=== PATIENT | male | born 1960 | race Caucasian/White ===

== ENCOUNTER 2017-09-28 09:48 | Emergency (ER) | payer OTHER, SELFPAY ==
[2017-09-28 09:49] VITALS: BP 144/88; PULSE 94; RESP 17; TEMP 36.8; O2SAT 97; BMI 34.1
--- NOTE | 2017-09-28 10:06 | ED.VIS.GEN ---
History of Present Illness Chief Complaint: Laceration Informant: Patient Onset: Today - JPTA Context: Sudden Onset - slipped on ladder, cut right wrist on edge of sheet metal Quality: sore Location: right dorsal wrist Current Severity: Mild - pain Maximum Severity: Mild Worsened by: n/a Relieved by: n/a Associated Symptoms: none. no numbness/ting, loss of fxn. Narrative: RHD. Last tetanus unk. Past Medical History - Allergies and Home Meds Allergies/Adverse Reactions: Allergies No Known Allergies Allergy (Verified 09/28/17 09:52) Primary Care Physician: [facility] [Primary Care Provider] - Past Medical History: None Smoking Status: Former smoker Review of Systems Musculoskeletal: Reports: Extremity Pain Skin: Reports: Abrasions, Wounds - laceration Neurological: Denies: Weakness, Parasthesia, Numbness Physical Exam Vital Signs/Narrative: Vital Signs Temp Pulse Resp BP Pulse Ox 09/28/17 09:49 98.3 F 94 17 144/88 H 97 General: Well nourished, Well developed Head: Normocephalic, Atraumatic Extremities: Nontender - FROM. extensor retinaculum involved in R wrist lac, but no tendons., - - FROM. extensor retinaculum involved in lac, but no tendons. Skin: Normal color, No rash, Trauma - 4cm laceration dorsal ulnar R wrist, just proximal to ulnar styloid. Clean, linear, full thickness. Neurological: Alert, Oriented x3, Cranial nerves II-XII grossly intact, Normal Strength, Normal Sensation, Normal Gait Diagnostic/Tx/Re-eval - Medical Decision Making Patient has pain when using extensor carpi ulnaris, which is the tendon that is moving within the wound that I can feel and neck on at the level of the laceration. There does not appear to be a partial laceration of the tendon however. These most superficial layer of fascia which may be the retinaculum does appear to be partially lacerated, however there is no bowstringing when he extends. Given the findings, will place him in a Velcro wrist splint. Laceration went uneventfully. 2 cc of local 1% lidocaine were used for anesthesia. It was irrigated thoroughly. He states that because of some water nearby there may be some acid in this wound. He is getting some soreness in his hand. 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 He does not have the container but thinks he might be able to get it, no one can look it up for him, he does not think it is hydrofluoric acid. He was advised to check this when he gets home, and to return immediately if indeed it contains hydrochloric acid. Procedures - Lacerations right wrist Length: 4 cm Depth: Tendon - knicked ECU w/o laceration. function intact. Shape: Linear Prep: Sterile Conditions, Betadine, Shure-Clens Irrigated (ml): 120 Number of Sutures/[place]rb[place]: 3 Suture Information: Horizontal, Mattress, 4-0 ED Disposition - Plan for ED Patient: Disposition: Home or Assisted Living Chief Complaint: Laceration Diagnosis: Laceration of right wrist with tendon involvement Prescriptions: Cephalexin [Keflex] 500 mg PO Q12 #10 cap Referrals: [facility] [GROUP OF PHYSICIANS] - 2 Days
[2017-09-28] MEDS: Diphth,Pertuss(Acell),Tet Vac 0.5 ML Vial IM (11:53)
[2017-09-28] MEDS: Cephalexin 250 MG Capsule 500 MG PO (12:43)
[2017-09-28 12:44] VITALS: BP 129/77; PULSE 84; RESP 16; O2SAT 99
--- NOTE | 2017-09-28 14:31 | ED.RN ---
PT RETURNED INSTRUCTED BY DR FRAZIER REGARDING HIS EXPOSURE TO HYDROPHLORIC ACID. DR FRAZIER AWARE AND ADDRESSING NEXT PLAN OF ACTION
--- NOTE | 2017-09-28 15:51 | NURSING ---
calcium chloride stopped at [address] Cruz's orders. States it is no longer needed.
[2017-09-28] MEDS: Acetaminophen 500 MG Tablet 1000 MG PO (16:32)
[2017-09-28 16:33] VITALS: PULSE 89; RESP 16; O2SAT 99
== END 2017-09-28 16:32 | disposition home or self-care (01) ==
PROVIDERS: Emergency Provider Emergency Medicine
DX: S61.511A Laceration without foreign body of right wrist, initial encounter (principal); S66.821A Laceration of other specified muscles, fascia and tendons at wrist and hand level, right hand, initial encounter; W11.XXXA Fall on and from ladder, initial encounter; Y93.89 Activity, other specified; Y92.008 Other place in unspecified non-institutional (private) residence as the place of occurrence of the external cause; Y99.0 Civilian activity done for income or pay
CPT/HCPCS: 12002; 90471; 90715; 96365; 99284; J7050; A4216

== ENCOUNTER → 2017-10-11 12:31 | Outpatient (CLI) | payer OTHER, SELFPAY ==
--- NOTE | 2017-10-11 12:42 | MRI_ITS ---
STUDY: MRI RIGHT WRIST WITHOUT CONTRAST REASON FOR EXAM: Male, 57 years old. Ulnar laceration. Evaluate for tendon injury. TECHNIQUE: Standardized fat and water weighted pulse sequences were obtained in all 3 orthogonal planes. COMPARISON: None. FINDINGS: There is fragmentation of the ulnar styloid with deformity of the distal ulna, likely from prior trauma (coronal series 4 images 7-14). There is moderate arthrosis of the radioulnar and the radiocarpal articulations. There is arthrosis of the intercarpal articulations (coronal series 4 images 10-17). There is a volar ganglion cyst adjacent to the hook of the hamate (axial series 6 images 26-30). Normal visualized interosseous scapholunate ligament. Normal visualized dorsal (extrinsic) ligaments. Normal visualized volar (extrinsic) ligaments. There is a split tear of the extensor carpi ulnaris adjacent to the triquetrum (axial series 6 images 21-28, coronal series 4 images 10-15). No full-thickness tear is present. Normal flexor tendons. Normal carpal tunnel with a normal median nerve. There is marked arthrosis of the first carpometacarpal joint (coronal series 8 images 26-33). Normal second through fifth carpometacarpal articulations. Normal visualized metacarpal bones. There is extensive superficial subcutaneous soft tissue edema on the ulnar side of the distal forearm, wrist and hand (coronal series 4 images 4-14). MRI/Upper Ext Joint Only(Routine) IMPRESSION: Fragmentation of the ulnar styloid with deformity of the distal ulna, likely from prior trauma. Moderate arthrosis of the radial ulnar, radiocarpal, intercarpal and first carpometacarpal articulations. Split tear of the extensor carpi ulnaris adjacent to the triquetrum. Small volar ganglion cyst adjacent to the hook of hamate. Extensive ulnar-sided superficial subcutaneous soft tissue edema. Electronically Signed: Addison Bravo MD at 14:15 EDT , Service support ,
== END ==
PROVIDERS: Visit Provider Physician Assistant Surgical
DX: S51.819A Laceration without foreign body of unspecified forearm, initial encounter (principal)
CPT/HCPCS: 73221

== ENCOUNTER → 2017-10-19 13:02 | Outpatient (CLI) | payer OTHER, SELFPAY ==
--- NOTE | 2017-10-19 13:03 | RAD_ITS ---
STUDY: X-RAY - RIGHT WRIST REASON FOR EXAM: Pain, laceration. TECHNIQUE: 3 view(s) of the wrist were obtained. COMPARISON: Radiographs of the forearm 11/27/2010. FINDINGS: There is a remote fracture of the ulnar styloid process as on the prior study. There is joint space narrowing of the radiocarpal compartment of the wrist. There is mild arthrosis of the distal radioulnar articulation. There is an osteophyte at the dorsal aspect of the lunate. There are intra-articular bodies in the anterior radiocarpal compartment of the wrist as on the prior study. Normal carpometacarpal articulation of the thumb. Normal second through fifth carpometacarpal articulations. Normal visualized metacarpal bones. There is soft tissue swelling. There is vascular calcification. RAD/Wrist min 3 Views IMPRESSION: Remote fracture of the ulnar styloid process. Degenerative changes of the right wrist with intra-articular bodies. Soft tissue swelling. Electronically Signed: Tarun Cao MD at 12:56 EDT Tel , Service support ,
== END ==
PROVIDERS: Visit Provider Orthopaedic Surgery
DX: S66.921A Laceration of unspecified muscle, fascia and tendon at wrist and hand level, right hand, initial encounter (principal)
CPT/HCPCS: 73110

== ENCOUNTER 2018-02-01 11:00 | Outpatient (RCR) | payer OTHER, SELFPAY ==
--- NOTE | 2017-12-21 14:18 | HP.OTEVAL ---
Patient's Visit Information SYLVESTER LACY is a 57 year old M, referred to Occupational Therapy by Alyse Jeffery DO, with a diagnosis of right laceration of muscle, fascia,tendon at wrist and hand levels. Date of Evaluation: 12/21/17 Occupational Therapist: CITLALLI Pineda/Sebastien, CHT - Subjective Subjective: On September 28, 2017 pt had a fall suffering a right forearm laceration. Pt went to ER to haver laceration repiar. pt states he contiues to have pain and limited ROM. Pt states he has had a remote past right wrist fx. but reports he had full ROM and no limited strength from that inj. pt has not missed any work at this time. Pt has worked for the [employer]. pt states due to this injury he is having to compensate with work and ADL tasks- pain does limit him as well as his limted ROM - Pain right wrist 3 Pain Intensity Range: 3, 8 - ROM Forearm: right sup 50 left 70 Wrist: right 60/55 left 65/70 ROM Comments: Right RD//UD 15/5 pain with both directions Limited ROM. 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 Goal:: Pt will demo an increase in wrist ROM equal to unaffected wrist to return pt to PLOF with grooming, dressing and home mtg tasks by D/C. Goal:: Pt will report pain no greater than 1/10 with use of affected hand with BADLs and IADLs by d/c. - Rehabilitation General Assessment: pt demo with limited right wrist ROM and strength. pt has pain with ROM and functional use of right hand. pt would benefit from skilled OT services 2-3x week for 4-6 weeks, Rehabilitation Potential: Good - Anticipated Interventions Anticipated Interventions: A/AAROM/PROM, Strengthening, Modalities, Orthoses, Joint Protection/Energy Conservation, Ergonomic Education - Visit Plan Frequency: 2-3x /Week Duration: 6 Weeks TEXT: Thank you for the opportunity to evaluate your patient. For Medicare and Medicare HMO plans, please review the plan of care and approve it. It will need to be FAXED BACK to us at [phone] for Medicare purposes. Please let me know if there are questions or concerns regarding this plan of care. Physician Signature: Date:
--- NOTE | 2018-02-02 10:38 | HP.OTDCSUM_ITS ---
HP - OT D/C Summary It has been my pleasure to treat SYLVESTER LACY under orders from Alyse Jeffery DO, for the diagnosis of right laceration of muscle, fascia,tendon at wrist and hand levels for a total of 12 visit(s). Please see the following information for a summary of their discharge status. - Objective Objective/Function: , UD/RD. Pt has made gains with his goals in OT. 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 Goal:: Pt will demo an increase in wrist ROM equal to unaffected wrist to return pt to PLOF with grooming, dressing and home mtg tasks by D/C. Goal:: Pt will report pain no greater than 1/10 with use of affected hand with BADLs and IADLs by d/c. - Plan Plan: cont with US and ulnar deviation exercises - D/C Information Discharge Comments: Patient made progress towards meeting goals. pt. reports having decreased pain when completing functional tasks. pt. demo little progress in ROM, however, pt. UD is still functional and is not limiting pt. completion of functional tasks. OT educated pt. on HEP for UD exercises and increasing UE strength. Pt. reports no further concerns at this time. If there are questions or concerns regarding this patient's occupational therapy, please fell free to call me at [phone]. Thank you for the referral of this patient. Sincerely, Michelle Anna, OTR/L, CHT
== END 2018-02-01 19:00 | disposition home or self-care (01) ==
LOC: OT 11:00
PROVIDERS: Referring Provider Orthopaedic Surgery; Visit Provider Orthopaedic Surgery
DX: S66.921D Laceration of unspecified muscle, fascia and tendon at wrist and hand level, right hand, subsequent encounter (principal)
CPT/HCPCS: 97035; 97110; 97140; 97166; 97530

== ENCOUNTER 2018-09-17 10:49 | Emergency (ER) | payer OTHER, SELFPAY ==
[2018-05-21 13:05] VITALS: BMI 30.9
[2018-09-17 10:50] VITALS: BP 143/92; PULSE 84; RESP 16; TEMP 36.7; O2SAT 95; BMI 34.9
--- NOTE | 2018-09-17 11:54 | RAD_ITS ---
STUDY: X-RAY - LEFT ANKLE REASON FOR EXAM: Male, 57 years old. TECHNIQUE: view(s) of the ankle. COMPARISON: None. FINDINGS: There is soft tissue swelling adjacent to the lateral malleolus. Otherwise no evidence of fracture or dislocation. The ankle mortise and subtalar joints are unremarkable. Minimal plantar and dorsal heel spurs noted. RAD/Ankle min 3 Views IMPRESSION: Soft tissue swelling adjacent to the lateral malleolus. Electronically Signed: Karen Cardoso, at 12:14 EDT Tel , Service support ,
--- NOTE | 2018-09-17 14:04 | ED.VISSUMM ---
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 He rolled his ankle and fell. He is complaining of pain and swelling has difficulty with weightbearing. He denies any other injury. Physical Examination: Vital signs unremarkable. Patient sitting upright in bed no acute distress. Head and neck examination was no external sign of trauma. No C-spine tenderness. Heart is regular rate and rhythm. Lung sounds are clear. Abdomen is soft and nontender. Left lower extremity examination was tenderness and edema of the lateral malleolus. There is no tenderness over the foot or proximal fibula. He has strong distal pulses. Test Results: Left ankle x-rays reveal soft tissue swelling adjacent to the lateral malleolus. Emergency Department Course and Treatment: Patient is treated with naproxen as well as air splint and crutches. He may weight-bear as tolerated. He will follow-up with [facility]. Treatment Plan: [] Disposition: Discharge Impression: Left ankle sprain This note was generated with [employer] dictation software. It may contain incorrect words, spelling, and punctuation that were not noted in review of the chart prior to signing ED Disposition - Plan for ED Patient: Disposition: Home or Assisted Living Instructions: Sprain, Ankle, with X-Ray Prescriptions: Naproxen [Naprosyn] 500 mg PO BID PRN PRN #20 tab PRN Reason: Pain Prescription Printed Referrals: [facility] [GROUP OF PHYSICIANS] - 3-5 Days
[2018-09-17] MEDS: Naproxen 500 MG Tablet PO (14:13)
[2018-09-17 14:18] VITALS: PULSE 70; RESP 16; O2SAT 99
== END 2018-09-17 14:20 | disposition home or self-care (01) ==
PROVIDERS: Emergency Provider Emergency Medicine
DX: S93.402A Sprain of unspecified ligament of left ankle, initial encounter (principal); I25.2 Old myocardial infarction; I10 Essential (primary) hypertension; Z87.891 Personal history of nicotine dependence; X50.1XXA Overexertion from prolonged static or awkward postures, initial encounter; Y93.89 Activity, other specified; Y92.59 Other trade areas as the place of occurrence of the external cause; Y99.0 Civilian activity done for income or pay
CPT/HCPCS: 73610; 99284

== ENCOUNTER 2019-01-01 08:30 | Outpatient (RCR) | payer OTHER, SELFPAY ==
[2018-11-13 12:02] VITALS: BMI 35.2
--- NOTE | 2018-11-27 13:08 | HP.PTEVAL ---
Patient's Visit Information SYLVESTER LACY is a 58 year old M referred to Physical Therapy by MIESHA Nichols with a diagnosis of LEFT ANKLE SPRAIN. Date of Evaluation: 11/27/18 Physical Therapist: Madhu Acuña, PT, Cert MDT, OCS - Visit Plan Frequency: 3x /Week Duration: 4 Weeks Plan: ANKLE SPRAIN SEPTEMBER 17. PT INTERVENTIONS - Subjective Findings: This 58 y/o male presents to physical therapy with left ankle sprain. 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 Patient had immediate pain with swelling Patient went to ER [facility] x-rays ,placed in air cast and crutcjes . Patient foll[facility] with [facility] ,patient RTW but patient continue to c/o cramping and pain . Thus seen [facility] 2 weeks ago thus recommend PT. Patient left lateral ankle with pain and swelling. Patient pain affects ability to walk on uneven terraine,job demands and housework tasks. Patient pain affects sleeping. Patient pain affects QOL and function. Patient symptoms affect sleeping. SOCIAL: single. VOCATION: [employer] - Pain Right Ankle Pain Intensity (Out of 10): 1 Pain Intensity Range: 10 - Objective POSTURE: frontal plane mechanics pes cavus. NEURO: intact. GAIT: antalgic gait with mild decrease stance time. PROPIOCEPTION: poor. AROM: DF 5 degrees,PF 65 degrees,IN 30 degrees,EV 10 degrees. PALPATION: tender anterior talofibular ligament ,calcaneal fibular ligament. EDEMA: trimalleor joint 29.8 cm. FLEXABILITY: G-S MILD TIGHT. ANKLE TEST: anterior drawer 1+ ,inversion +,talar tilt +. MMT: ankle anterior tibials 4/5 ,pernoeus 4/5,G-S 4-/5,POSTERIOR TIBIALS 4-/5 - Goals Goal 1:: Independant with HEP. Goal Time Frame: 4-6 Weeks Goal 2:: Patient to decrease pain ankle with activity by 75% to improve function Goal Time Frame: 4-6 Weeks Goal 3:: Patient to improve proprioception for uneven surfaces Goal Time Frame: 4-6 Weeks Goal 4:: Patient increase strength left ankle 5/5 to improve gait Goal Time Frame: 4-6 Weeks Goal 5:: Patient increase gait with normal marcelino Goal Time Frame: 4-6 Weeks Goal 6:: Pateint to improve LFES score by 10 points to improve job demands Goal Time Frame: 4-6 Weeks - Rehabilitation Potential Physical Therapy Diagnosis: Patient has left ankle sprain September 17 with pain ,edema,strength,proproception and gait thus impairs job demands Rehabilitation Potential: Good - Anticipated Interventions Patient/Client Instruction: Educate patient on: Condition, Plan of Care For the Purpose of:: To decrease pain, To increase ROM, To improve muscle performance and motor function, To improve ability to perform ADL's, To increase tolerance to activity/condition/position, To improve ability of physical actions for home/community/work/leisure, To improve health of tissue, To decrease soft tissue restriction, To increase flexibility/ROM, To reduce risk of recurrence, To improve ability to perform tasks related to life management Therapeutic Exercise to Include: Strength training, Balance training, Flexibilty training, Passive ROM, Active ROM Comment: PROPRIOCEPTION For the Purpose of:: To decrease pain, To increase ROM, To improve muscle performance and motor function, To increase tolerance to activity/condition/position, To improve ability of physical actions for home/community/work/leisure, To improve health of tissue, To decrease soft tissue restriction, To increase flexibility/ROM, To improve balance, To reduce risk of recurrence TENS: Yes IF ES: Yes Cryotherapy (ice pack, ice massage): Yes Ultrasound (thermal/non thermal): Yes For the Purpose of:: To decrease pain, To increase ROM, To improve nutrient delivery to tissue, To increase oxygenation perfusion, To improve health of tissue, To decrease soft tissue restriction Thank you for the opportunity to evaluate your patient. For Medicare and Medicare HMO plans, please review the plan of care and approve it. It will need to be FAXED BACK to us at [phone] for Medicare purposes. For Medicare only, by signing this I certify the plan of care. Please let me know if there are questions or concerns regarding this plan of care. Physician Signature: Date:
--- NOTE | 2019-03-29 08:30 | HP.PT.NRP ---
HP - Discharge Summary (1) - Patient Information SYLVESTER LACY was seen in my office for initial evaluation on 11/27/18. The following Plan of Care was established for this patient: Initial Frequency: 3x /Week Initial Duration: 4 Weeks - Anticipated Interventions Patient/Client Instruction: Educate patient on: Condition, Plan of Care For the Purpose of:: To decrease pain, To increase ROM, To improve muscle performance and motor function, To improve ability to perform ADL's, To increase tolerance to activity/condition/position, To improve ability of physical actions for home/community/work/leisure, To improve health of tissue, To decrease soft tissue restriction, To increase flexibility/ROM, To reduce risk of recurrence, To improve ability to perform tasks related to life management Therapeutic Exercise to Include: Strength training, Balance training, Flexibilty training, Passive ROM, Active ROM For the Purpose of:: To decrease pain, To increase ROM, To improve muscle performance and motor function, To increase tolerance to activity/condition/position, To improve ability of physical actions for home/community/work/leisure, To improve health of tissue, To decrease soft tissue restriction, To increase flexibility/ROM, To improve balance, To reduce risk of recurrence TENS: Yes IF ES: Yes Cryotherapy (ice pack, ice massage): Yes Ultrasound (thermal/non thermal): Yes For the Purpose of:: To decrease pain, To increase ROM, To improve nutrient delivery to tissue, To increase oxygenation perfusion, To improve health of tissue, To decrease soft tissue restriction This patient was last seen in our office 01/01/19. Pertinent comments regarding their Physical therapy will appear below: Patient seen for PT for left ankle sprain for 10 visits with tx focusing on flexablity ,strengthening,proprioception . Patient was RTD ,thus is d/c. At this point I will be discontinuing this patient from physical therapy. I would be happy to see this patient again in the future if found appropriate by the physician. Thank you! Madhu Acuña, PT, Cert MDT, OCS
== END 2019-01-01 19:00 | disposition home or self-care (01) ==
LOC: PT 08:30
PROVIDERS: Referring Provider Physician Assistant; Visit Provider Physician Assistant
DX: S93.402D Sprain of unspecified ligament of left ankle, subsequent encounter (principal); S66.921D Laceration of unspecified muscle, fascia and tendon at wrist and hand level, right hand, subsequent encounter
CPT/HCPCS: 97110; 97162

== ENCOUNTER 2019-11-01 09:33 | Emergency (ER) | payer OTHER, SELFPAY ==
[2018-11-13 12:02] VITALS: BMI 35.2
[2019-11-01 09:34] VITALS: BP 167/98; PULSE 58; RESP 16; TEMP 36.4; O2SAT 98; BMI 35.9
--- NOTE | 2019-11-01 09:49 | EKG12_ITS ---
Test Reason : DIZZINESS Blood Pressure : / mmHG Vent. Rate : 061 BPM Atrial Rate : 061 BPM P-R Int : 162 ms QRS Dur : 088 ms QT Int : 432 ms P-R-T Axes : 015 -27 -03 degrees QTc Int : 434 ms Normal sinus rhythm Leftward axis Poor R wave progression Confirmed by ALLISON WEIR, SONY ([id number]), continuity editor LARA CHAN ([id number]) on 11/05/2019 10:41:01 AM Referred By: JILLIAN Confirmed By:SONY COOPER MD
--- NOTE | 2019-11-01 10:02 | CT_ITS ---
STUDY: CTA HEAD AND NECK WITH CONTRAST REASON FOR EXAM: Male, 59 years old. DIZZINESS/VOMITING X 2 RADIATION DOSAGE (If Supplied By Facility): CTDIvol = ( 28.816 ) mGy, DLP = ( 1646.47 ) mGycm TECHNIQUE: CT angiography was performed with a multi-detector CT scanner. Data acquisition was obtained from the skull base through the vertex following intravenous administration of IV 100 ML ISOVUE 370. MIP images were reconstructed from the axial data set. Post-processing of the angiographic images was performed, with multiplanar reformation and 3D reconstruction. Individualized dose optimization techniques were used for this CT. COMPARISON: No relevant priors. FINDINGS: Normal bilateral petrous carotid arteries. There is calcified plaque formation of the right cavernous carotid artery, without a cross-sectional luminal stenosis. There is calcified plaque formation of the left cavernous carotid artery, without a cross-sectional luminal stenosis. Normal right A1 segments of the anterior cerebral artery. Normal left A1 segments of the anterior cerebral artery. Normal intact anterior communicating artery (ACOM). Normal bilateral A2 segments of the anterior cerebral arteries. Normal right M1 and M2 segments of the middle cerebral arteries, with a normal M1 bifurcation. Normal left M1 and M2 segments of the middle cerebral arteries, with a normal M1 bifurcation. Normal right posterior communicating artery (PCOM). Normal left posterior communicating artery (PCOM). Normal bilateral vertebral arteries. Normal basilar artery with a normal basilar bifurcation. The visualized bilateral superior cerebellar (SCA) arteries are normal. Normal bilateral P1, P2 and visualized P3 segments of the posterior cerebral arteries. There is no demonstrated aneurysm of the upper [place] of [place]. There is no demonstrated abnormality of the visualized brain. AORTIC ARCH: Normal visualized aortic arch. Normal origins of the brachiocephalic, left common carotid, and left subclavian arteries. RIGHT CAROTID ARTERIES: Normal right common carotid artery (CCA). Normal right common carotid bulb. Normal origin of the right internal carotid (ICA) artery without a hemodynamically significant stenosis. Normal visualized cervical portion of the right internal carotid artery. Normal origin of the right external carotid artery (ECA). LEFT CAROTID ARTERIES: Normal left common carotid artery (CCA). Normal left common carotid bulb. Minimal calcific plaque at the origin of the left internal carotid artery. Normal visualized cervical portion of the left internal carotid artery. Normal origin of the left external carotid artery (ECA). VERTEBRAL ARTERIES: Normal bilateral vertebral arteries. CT/CTA Head AND Neck W/ Contrast IMPRESSION: Normal CTA Head and neck with contrast. Electronically Signed: Klever Cotton, at 10:43 EDT , Service support ,
[2019-11-01 10:08] LABS: Absolute Lymphocyte Count 1.13 X10^3/uL (0.83-4.51); Absolute Neutrophil Count 3.6 X10^3/uL (2.0-7.7); Basophil# 0.04 X10^3/uL; Basophil% 0.7 % (0-1); Eosinophil# 0.07 X10^3/uL; Eosinophils% 1.3 % (0-5); Hematocrit 40.9 % (40-54); Hemoglobin 12.9 g/dL (13.0-16.5); Lymphocyte # 1.13 X10^3/ul (4.0); Mean Corp Hgb Conc 31.5 g/dL (32-36); Mean Corpuscular Hgb 29.1 pg (27.0-32.0); Mean Corpuscular Volume 92.3 fL (80-94); Mean Platelet Vol. 9.1 fl (6.2-12.0); Monocyte# 0.56 X10^3/uL; Monocyte% 10.4 % (0-10); NRBC Flagged by Analyzer 0 % (0-5); Neutrophil # 3.56 X10^3/uL (2.7-7.7); Neutrophil % 66.2 % (47-70); Platelet Count 246 K/mm3 (150-450); RBC Distribution Width CV 13.1 % (11.6-14.6); RBC Distribution Width SD 44.2 fl (35.1-43.9); Red Blood Count 4.43 M/mm3 (4.6-6.2); White Blood Count 5.4 K/mm3 (4.4-11.0)
[2019-11-01] MEDS: 0.9% Normal Saline 1,000 ML 1000 ML IV (10:10)
[2019-11-01] MEDS: diazePAM 5 MG Tablet PO (10:10)
[2019-11-01 10:20] LABS: Anion Gap 2 (5-15); BUN 15 mg/dL (7-18); BUN/Creat Ratio 20.5 RATIO (10-20); Chloride 108 mmol/L (98-107); Creatinine, Serum 0.73 mg/dL (0.70-1.30); EST Glomerular Filtration Rate 116 mL/min (>60); Est Glom Filt Rate - Afr Amer 141 mL/min (>60); Estimated Creatinine Clearance 107.61 ml/min; Glucose 102 mg/dL (74-106); Potassium 4.7 mmol/L (3.5-5.1); Sodium Level 141 mmol/L (136-145)
--- NOTE | 2019-11-01 10:33 | ED.VIS.GEN ---
History of Present Illness <Kolby Reid Last Filed: 11/01/19 10:52> Informant: Patient, Family Onset: Today Context: Sudden Onset Timing: Continuous Quality: dizzy Location: head Current Severity: Moderate Maximum Severity: Severe Worsened by: movement, laying flat Relieved by: nothing Associated Symptoms: nausea and vomiting Prior similar symptoms: No Recent Illness/Hospitalization: No <Baljeet Coon Last Filed: 11/01/19 11:08> Chief Complaint: Dizziness Past Medical History <Kolby Reid Last Filed: 11/01/19 10:52> Prior records reviewed: Yes Past Medical History: - - HTN, HPL Surgical History: no surgical history Smoking Status: Former smoker Alcohol: Occasional Drugs: None <Baljeet Coon Last Filed: 11/01/19 11:08> - Allergies and Home Meds Allergies/Adverse Reactions: Allergies No Known Allergies Allergy (Verified 11/01/19 09:35) Primary Care Physician: [facility] [Primary Care Provider] - Review of Systems All systems negative except as indicated General: Denies: Chills, Fever, Sweats Eyes: Denies: Visual changes - bilaterally, Blurred Vision - bilaterally, Diplopia ENT: Denies: Rhinorrhea, Sore throat Cardiovascular: Denies: Chest pain, Palpitations Respiratory: Denies: Dyspnea, Cough, Dyspnea on exertion Gastrointestinal: Reports: Nausea, Vomiting. Denies: Abdominal pain, Diarrhea, Constipation, Melena, Hematochezia Genitourinary: Denies: Dysuria, Hematuria, Frequency Musculoskeletal: Denies: Back pain, Swelling, Extremity Pain Skin: Denies: Rash, Wounds Neurological: Denies: Headache, Weakness, Parasthesia, Numbness <ShaggyBaljeet - Last Filed: 11/01/19 11:08> Physical Exam Vital Signs/Narrative: Vital Signs Temp Pulse Resp BP Pulse Ox 11/01/19 09:34 97.6 F L 58 L 16 167/98 H 98 <Kolby Reid - Last Filed: 11/01/19 10:52> Vital Signs/Narrative: Vital Signs Temp Pulse Resp BP Pulse Ox 11/01/19 09:34 97.6 F L 58 L 16 167/98 H 98 Inital Vital Signs reviewed: Yes General: Well nourished, Well developed, No Acute Distress Head: Normocephalic, Atraumatic Eyes: Perrl, EOMI, - - no nystagmus ENT: Moist mucous membranes, No rhinorrhea Neck: Supple, Nontender, No JVD Cardiovascular: Regular rate, Regular rhythm, No murmurs Respiratory: No distress, CTA bilaterally, Chest nontender Abdomen: Soft, Nontender, Nondistended, Normal bowel sounds Back: Nontender, Normal Inspection Extremities: Nontender, No edema Skin: Normal color, No rash Neurological: Alert, Oriented x3, Cranial nerves II-XII grossly intact, Normal Strength, Normal Sensation, Normal DTR, Normal Gait Psychological: Normal affect, Normal Mood <Baljeet Coon - Last Filed: 11/01/19 11:08> Diagnostic/Tx/Re-eval - Medical Decision Making Seeing the patient with our physician server assistant. Patient complaining of room spinning dizziness worse with head movement. Denies any headache. Denies any head trauma. No prior history. Patient denies any problems moving his arms and legs. Says with head movement his dizziness gets worse and he gets the point where he is nauseated and feels like his no throw up. Well-appearing middle-aged male. Vital signs stable afebrile. HEENT exam unremarkable. Neck nontender. Lungs are clear. Heart regular rhythm no murmur. Abdomen soft. Patient is moving all 4 extremities. No edema. Normal plane captain strength. 5 out of 5. Normal dorsi plantarflexion. Neurologic exam normal. NIH score is 0. Fingertip to nose within normal limits. No facial droop. Normal speech. Hallpike maneuver positive. With worsening of the symptoms. Patient's history and exam are consistent with acute vertigo. Being treated with p.o. Valium. CAT scan and labs are being obtained. Next Impression: Acute dizziness secondary to vertigo <Kolby Reid - Last Filed: 11/01/19 10:52> - Medical Decision Making Basic laboratory work-up was unremarkable. CTA head and neck was unremarkable as well. Repeat evaluation, he feels improved. He ambulates normally. At this time we feel comfortable with discharge as does the patient. We will prescribe him some Valium and refer him to his primary care for further treatment. He was advised to return for worsening symptoms. <Baljeet Coon - Last Filed: 11/01/19 11:08> ED Disposition <Kolby Reid - Last Filed: 11/01/19 10:52> <Baljeet Coon - Last Filed: 11/01/19 11:08> - Plan for ED Patient: Disposition: Home or Assisted Living Diagnosis: Dizziness, HTN (hypertension) Instructions: ED Dizziness [facility] Prescriptions: Meclizine HCl [Antivert] 25 mg PO 4X/DAY PRN PRN #20 tab PRN Reason: Dizziness Prescription Printed proMETHazine tablet [Phenergan] 25 mg PO Q6H PRN PRN #10 tab PRN Reason: Nausea Prescription Printed Diazepam [Valium] 5 mg PO Q8 PRN #10 tab PRN Reason: Dizziness Prescription Printed [facility] [Primary Care Provider] -
[2019-11-01 11:40] VITALS: BP 122/9; BP 122/92; PULSE 68; RESP 16; O2SAT 97
== END 2019-11-01 11:44 | disposition home or self-care (01) ==
PROVIDERS: Emergency Provider Physician Assistant Medical
DX: R42 Dizziness and giddiness (principal); Z87.891 Personal history of nicotine dependence
CPT/HCPCS: 70496; 70498; 80048; 85025; 93005; 96360; 96361; 99284; J7030; Q9967

== ENCOUNTER → 2020-10-07 16:14 | Outpatient (CLI) | payer OTHER, SELFPAY ==
[2020-09-11 08:54] VITALS: BMI 35.9
--- NOTE | 2020-10-07 16:17 | MRI_ITS ---
STUDY: MRI LEFT ANKLE WITHOUT CONTRAST REASON FOR EXAM: Male, 60 years old. injury 2 years ago, pain lateral ankle TECHNIQUE: Standardized fat and water weighted pulse sequences were obtained in all 3 orthogonal planes. COMPARISON: May 25 2020. FINDINGS: Achilles enthesophyte. No significant Achilles tendinosis. Mild/moderate multifocal chronic plantar fascial thickening (sagittal images 2 through 9 series 4). Small plantar spur. Normal muscles of the midfoot/hindfoot. Normal extensor tendons. Mild posterior tibialis tendinosis with tenosynovitis. Remainder of flexor tendons unremarkable. Trace peroneus longus/brevis tenosynovitis. Normal syndesmotic thickness. 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 Chronic posterior talofibular ligament sprain. Normal Lisfranc ligament. Normal sinus Tarsi/subtalar ligaments. Normal deltoid ligament. Normal spring ligament. No acute fracture, dislocation or bone destruction. Mild navicular cuneiform joint arthrosis. Mild tarsometatarsal joint arthrosis. Remainder of the articular cartilage preserved. No significant soft tissue swelling. Small tibiotalar/subtalar joint effusion. 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
== END ==
PROVIDERS: Referring Provider Physician Assistant; Visit Provider Physician Assistant
DX: S93.402A Sprain of unspecified ligament of left ankle, initial encounter (principal)
CPT/HCPCS: 73721

== ENCOUNTER 2021-06-25 07:24 | Emergency (ER) | payer OTHER, SELFPAY ==
[2021-06-25 07:25] VITALS: BP 162/103; PULSE 64; RESP 16; TEMP 36.6; O2SAT 99; BMI 34.7
--- NOTE | 2021-06-25 07:47 | EKG12_ITS ---
Test Reason : DIZZINESS Blood Pressure : / mmHG Vent. Rate : 064 BPM Atrial Rate : 064 BPM P-R Int : 174 ms QRS Dur : 088 ms QT Int : 416 ms P-R-T Axes : 063 -29 -05 degrees QTc Int : 429 ms Normal sinus rhythm Poor R wave Progression Confirmed by ALLISON WEIR, SONY ([id number]), supervising editor news reel ALISTAIR SONG ([id number]) on 06/29/2021 11:18:35 AM Referred By: KARIN Confirmed By:SONY COOPER MD
--- NOTE | 2021-06-25 07:47 | RAD_ITS ---
STUDY: X-RAY CHEST REASON FOR EXAM: Male, 60 years old. Dizziness, presyncope TECHNIQUE: AP COMPARISON: None. FINDINGS: EKG leads project over the chest. The lungs are clear and expanded. There is no demonstrated pleural abnormality. Normal size heart. Unremarkable mediastinum and quentin. Normal visualized pulmonary arteries. Normal visualized aortic arch and descending thoracic aorta. Normal visualized thoracic spine. Normal visualized ribs, clavicles, and shoulders. There is no demonstrated abnormality of the visualized soft tissue structures of the upper abdomen. RAD/Chest 1 View IMPRESSION: Nonacute x-ray examination of the chest. Electronically Signed: Derek Rodriguez MD (Brooks) at 8:22 EDT ,
--- NOTE | 2021-06-25 07:47 | CT_ITS ---
STUDY: CT HEAD STROKE PROTOCOL W/O CONTRAST INJECTION REASON FOR EXAM: Male, 60 years old. vertigo RADIATION DOSAGE (If Supplied By Facility): CTDIvol = ( ) mGy, DLP = ( ) mGycm TECHNIQUE: Transaxial CT imaging of the brain was performed without administration of intravenous contrast material. Individualized dose optimization techniques were used for this CT. COMPARISON: No relevant priors. FINDINGS: Normal soft tissue structures. Normal calvarium. Normal size ventricles and extra-axial spaces for the patient''s age. Normal white matter tracts of the cerebral hemispheres. Normal basal ganglia and thalami. Normal brainstem. Normal cerebellum. There is no intracranial hemorrhage. There are no findings of an acute ischemic infarction. Normal visualized paranasal sinuses. ASPECT score: 10/10 CT/STROKE Brain/Head without Cont IMPRESSION: No acute intracranial hemorrhage or mass effect. N.B. : The above Results were Read Back by Derek Rodriguez MD (Brooks) to Thomas Cruz MD, and understanding confirmed on 06/25/2021 08:16:15 (ET). Electronically Signed: Derek Rodriguez MD (Brooks) at 8:17 EDT Reading Location ID and State: [address] [place] [address] , Service support ,
--- NOTE | 2021-06-25 07:48 | CT_ITS ---
STUDY: CTA HEAD AND NECK WITH CONTRAST REASON FOR EXAM: Male, 60 years old. Vertigo, HTN RADIATION DOSAGE (If Supplied By Facility): CTDIvol = ( 21.74 ) mGy, DLP = ( 716.21 ) mGycm TECHNIQUE: CT angiography was performed with a multi-detector CT scanner. Data acquisition was obtained from the skull base through the vertex following intravenous administration of IV 100mL [id number]-370. MIP images were reconstructed from the axial data set. Post-processing of the angiographic images was performed, with multiplanar reformation and 3D reconstruction. Individualized dose optimization techniques were used for this CT. COMPARISON: No relevant priors. FINDINGS: Normal bilateral petrous carotid arteries. There is calcified plaque formation of the right cavernous carotid artery, without a cross-sectional luminal stenosis. There is calcified plaque formation of the left cavernous carotid artery, without a cross-sectional luminal stenosis. Normal right A1 segments of the anterior cerebral artery. Normal left A1 segments of the anterior cerebral artery. Normal intact anterior communicating artery (ACOM). Normal bilateral A2 segments of the anterior cerebral arteries. Normal right M1 and M2 segments of the middle cerebral arteries, with a normal M1 bifurcation. Normal left M1 and M2 segments of the middle cerebral arteries, with a normal M1 bifurcation. Normal right posterior communicating artery (PCOM). Normal left posterior communicating artery (PCOM). Normal bilateral vertebral arteries. Normal basilar artery with a normal basilar bifurcation. The visualized bilateral superior cerebellar (SCA) arteries are normal. Normal bilateral P1, P2 and visualized P3 segments of the posterior cerebral arteries. There is no demonstrated aneurysm of the [place]. There is no demonstrated abnormality of the visualized brain. AORTIC ARCH: There is a mild degree of atherosclerotic calcific plaque formation of the aortic arch and great vessels arising from the aortic arch, without a hemodynamically significant stenosis. There is a normal origin of the brachiocephalic, left common carotid, and left subclavian arteries. RIGHT CAROTID ARTERIES: Normal right common carotid artery (CCA). Normal right common carotid bulb. There is mild atherosclerotic plaque formation of the origin of the right internal carotid artery with less than 50% cross sectional diameter stenosis. Normal visualized cervical portion of the right internal carotid artery. Normal origin of the right external carotid artery (ECA). LEFT CAROTID ARTERIES: Normal left common carotid artery (CCA). Normal left common carotid bulb. There is mild atherosclerotic plaque formation of the origin of the left internal carotid artery with less than 50% cross sectional diameter stenosis. Normal visualized cervical portion of the left internal carotid artery. Normal origin of the left external carotid artery (ECA). VERTEBRAL ARTERIES: There is enhancement within the bilateral vertebral arteries with a small right vertebral artery, and a dominant left vertebral artery. CT/STROKE CTA Head AND Neck W/Con IMPRESSION: Mild calcific plaque at the origins of both right and left internal carotid arteries causing less than 50% narrowing. N.B. : The above Results were Read Back by Klever Cotton MD to Thomas Cruz and understanding confirmed on 06/25/2021 09:07:22 (ET). Electronically Signed: Klever Cotton MD at 9:09 EDT ,
--- NOTE | 2021-06-25 07:49 | EDS_ITS ---
HPI History of Present Illness Chief Complaint: Dizziness Informant: patient Onset/Context/Timing Onset: Days (2-3) Context: Gradual Onset Timing: Continuous Quality and Location: Positive for - (Disequilibrium/lightheadedness) Current Severity: Mild Maximum Severity: Moderate Worsened by: Turning head or torquing neck Relieved by: Sitting and remaining still Associated Symptoms Associated Symptoms: Negative for Headache, Nausea, Vomiting and Chest Pain Narrative Narrative: Patient has been having disequilibrium symptoms of you like he is off balance. No rachael spinning or movement in his head. No nausea or vomiting like he had the last time he had vertigo although the dizziness sensation is somewhat similar. Walking is not as bad as long as his head is remaining still. He denies any focal peripheral neurologic deficits or vision changes, visual field deficits, or diplopia. He has chronic tinnitus that is unchanged and no other ear symptoms. No recent head trauma, no recent viral illnesses or hospitalization for anything or other illness. Spell pressure usually runs 117 or so systolic, it is 162 and 170 here in the emergency department. [facility] Medical History Hay fever Heart attack Hemorrhoids Hyperlipidemia Hypertension Home Medications carvedilol 12.5 mg tablet 0.5 tab PO BID #90 tab 09/18/18 [History Last Taken Unknown] lisinopril 5 mg tablet 2.5 mg PO DAILY #90 tab 09/18/18 [History Last Taken Unknown] isosorbide mononitrate 30 mg PO DAILY 11/01/19 [History Last Taken Unknown] meclizine 25 mg PO 4X/DAY PRN PRN #20 tab 11/01/19 [Rx Last Taken Unknown] promethazine 25 mg PO Q6H PRN PRN #10 tab 11/01/19 [Rx Last Taken Unknown] simvastatin 40 mg PO QHS 11/01/19 [History Last Taken Unknown] aspirin [Baby Aspirin] 81 mg PO DAILY 06/25/21 [History Last Taken Unknown] meclizine 25 mg PO Q8H PRN PRN #20 tab 06/25/21 [Rx Last Taken Unknown] Allergy/AdvReac Type Severity Reaction Status Date / Time No Known Allergies Allergy Verified 06/25/21 07:27 Surgical History (Updated 06/25/21 @ 07:37 by Samia Newby) Hx of heart artery stent Social History Smoking Status: Former smoker alcohol intake: current Alcohol type: beer details: weekly ROS ROS ED Constitutional Constitutional ED: Denies chills or fever(s) Eyes Eyes: Denies change in vision or diplopia ENT ENT ED: Reports as per HPI, dizziness and tinnitus; Denies ear pain, rhinorrhea or sore throat Cardiovascular Cardiovascular: Denies chest pain or palpitations Respiratory/Chest Respiratory/Chest: Denies cough or dyspnea Gastrointestinal Gastrointestinal: Denies abdominal pain, diarrhea, nausea or vomiting Genitourinary Genitourinary ED: Denies dysuria or hematuria Musculoskeletal Musculoskeletal: Denies back pain or neck pain Integumentary Denies abscess or rash Neurologic Neurologic: Denies headache(s), paresthesias or weakness Psychiatric Psychiatric: Denies anxiety or suicidal thoughts EXAM Physical Exam Const Vital Signs: 06/25/21 07:25 06/25/21 08:01 06/25/21 08:24 Temperature 97.9 F Temperature Source Temporal Pulse Rate 64 63 Respiratory Rate 16 20 H Respiratory Effort Normal Non-Labored Respiratory Pattern Normal Blood Pressure 162/103 H 144/96 H Blood Pressure Mean 122 112 Pulse Ox 99 94 Oxygen Delivery Method Room Air Room Air Room Air 06/25/21 09:24 06/25/21 10:00 Temperature Temperature Source Pulse Rate 56 L 57 L Respiratory Rate 19 H 18 Respiratory Effort Respiratory Pattern Blood Pressure 135/94 H 130/92 H Blood Pressure Mean 107 104 Pulse Ox 95 97 Oxygen Delivery Method Room Air Room Air Positive well nourished and well developed General Appearance ED: well developed and NAD HEENT Reports EAC's normal, TM's clear, TM's normal bilaterally and moist mucous membranes normocephalic and atraumatic Tympanic Membrane ED: Yes TM's clear Eyes PERRL and EOMs intact bilaterally Eyes Narrative: No horizontal, vertical, or rotatory nystagmus Neck full ROM and supple Resp normal respiratory effort and clear to auscultation bilaterally Cardio regular rate, regular rhythm and no murmurs GI non-tender and non-distended Auscultation: normoactive bowel sounds Palpation: soft Back/Spine no CVA tenderness General Back: other FROM Extremity normal to inspection General Extremety ED: Negative for edema, pulses abnormal or tenderness General Extremity: Negative for edema or pulses abnormal Neuro oriented x3, CN's II-XII intact bilaterally and no sensory deficits noted Neuro Narrative: Normal [id number] and hxqe-wo-ezmb bilaterally. Normal Romberg. Judie-Hallpike elicits symptoms bilaterally worse to the right Sensorium / Orientation: awake and alert Motor Exam: strength 5/5 throughout Skin no rashes or lesions noted and no wounds STROKE Vital Signs/Narrative: Vital Signs Temp Pulse Resp BP Pulse Ox 06/25/21 10:00 57 L 18 130/92 H 97 06/25/21 09:24 56 L 19 H 135/94 H 95 06/25/21 08:24 63 20 H 144/96 H 94 06/25/21 07:25 97.9 F 64 16 162/103 H 99 NIHSS Initial: 1a Level of Consciousness: 0 1b LOC Questions (Score 2 if aphasic/stupor): 0 1c LOC Commands (Only score 1st attempt): 0 2 Best Gaze (If aphasic, use reflexive mvmts.): 0 3 Visual: 0 4 Facial Palsy: 0 5 Motor Arm Right (UN = amputation/fusion): 0 5 Motor Arm Left: 0 6 Motor Leg Right: 0 6 Motor Leg Left: 0 7 Limb ataxia (Only + if out of proportion): 0 8 Sensory (Aphasia/stupor=0 or 1, coma=2): 0 9 Best Language: 0 10 Dysarthria (mute, coma=2, intubated=UN): 0 11 Extinction and Inattention (only scored if +): 0 Total Score: 0 MDM MDM MDM Narrative Medical decision making narrative: Stroke work-up was performed including CT angiography of the head and neck, all of this was negative for anything acute. He does have some mild plaques at the origin of both internal carotids, they are less than 50%, and he has no posterior circulation issues on the CTA. His EKG is normal. Labs are normal. He was given oral meclizine after passing swallow evaluation and he says he feels much better. The blood pressure was initially 162 systolic and then 170. Without treating it, we watched him for several hours and all of his other measurements were 130-140 systolic. Given all of this and the fact that he has had symptoms for 2 or 3 days, I am comfortable with him following up as an outpatient for what is very likely to be peripheral vertigo. Discussed all this with the patient and he is in agreement. Lab Data Attestation: I reviewed the patient's lab results. Labs: Laboratory Results - last 24 hr 06/25/21 06/25/21 06/25/21 07:45 07:45 07:45 WBC 4.9 RBC 4.68 Hgb 13.6 Hct 41.4 MCV 88.5 MCH 29.1 MCHC 32.9 RDW Std Deviation 42.6 RDW Coeff of Tena 13.2 Plt Count 236 MPV 8.7 Immature Gran % (Auto) 0.400 Neut % (Auto) 52.3 Lymph % (Auto) 32.7 [place] % (Auto) 11.2 H Eos % (Auto) 2.4 Baso % (Auto) 1.0 Absolute Neuts (auto) 2.6 Absolute Lymphs (auto) 1.61 Nucleated RBC % 0 PT 12.5 INR 1.0 APTT 31.9 Sodium 138 Potassium 4.2 Chloride 106 Carbon Dioxide 30.0 Anion Gap 2 L BUN 16 Creatinine 0.76 Estim Creat Clear Calc 102.07 Est GFR (MDRD) Af Amer 133 Est GFR (MDRD) Non-Af 110 BUN/Creatinine Ratio 20.9 H Glucose 80 Calcium 8.7 Troponin I High Sens 4 Radiography Diagnostic Testing: Clinical Impression(s) from Imaging Studies Brain CT 06/25/21 07:47 IMPRESSION: No acute intracranial hemorrhage or mass effect. N.B. : The above Results were Read Back by Derek Rodriguez MD (Brooks) to Thomas Cruz MD, and understanding confirmed on 06/25/2021 08:16:15 (ET). Electronically Signed: Derek Rodriguez MD (Brooks) at 8:17 EDT Reading Location ID and State: [address] [place] [address] , Service support , ADDENDUM: 06/25/21823 IMPRESSION: No acute intracranial hemorrhage or mass effect. N.B. : The above Results were Read Back by Derek Rodriguez MD (Brooks) to Thomas Cruz MD, and understanding confirmed on 06/25/2021 08:16:15 (ET). Electronically Signed: Derek Rodriguez MD (Brooks) at 8:17 EDT , Chest X-Ray 06/25/21 07:47 IMPRESSION: Nonacute x-ray examination of the chest. Electronically Signed: Derek Rodriguez MD (Brooks) at 8:22 EDT , Head/Neck CTA 06/25/21 07:48 IMPRESSION: Mild calcific plaque at the origins of both right and left internal carotid arteries causing less than 50% narrowing. N.B. : The above Results were Read Back by Klever Cotton MD to Thomas Cruz and understanding confirmed on 06/25/2021 09:07:22 (ET). Electronically Signed: Klever Cotton MD at 9:09 EDT , ADDENDUM: 06/25/21 0916 IMPRESSION: Mild calcific plaque at the origins of both right and left internal carotid arteries causing less than 50% narrowing. N.B. : The above Results were Read Back by Klever Cotton MD to Thomas Cruz and understanding confirmed on 06/25/2021 09:07:22 (ET). Electronically Signed: Klever Cotton MD at 9:09 EDT , Rhythm Strip Rhythm Strip: Sinus Rhythm Rate: 65 Ectopy: None EKG Initial EKG: Attestation: I personally reviewed and interpreted this EKG as follows: Interpretation: Sinus Rhythm and No Acute Injury Pattern Comments: Normal EKG Stroke Documentation Questions Stroke Team Activated: No (Due to symptoms 2-3 days) Discharge Plan Triage Chief Complaint: Dizziness ED Provider: Thomas Cruz Dx/Rx/DC Orders Clinical Impression: Peripheral vertigo, Tinnitus Instructions: ED Vertigo, Unspecified Prescriptions: New meclizine [meclizine] 25 MG tablet 25 mg PO Q8H PRN PRN (Reason: Dizziness) Qty: 20 RF: 0 No Action lisinopril 5 mg tablet 2.5 mg PO DAILY Qty: 90 RF: 0 carvedilol 12.5 mg tablet 0.5 tab PO BID Qty: 90 RF: 0 isosorbide mononitrate 30 mg tablet extended release 24 hr 30 mg PO DAILY RF: 0 simvastatin 40 MG tablet 40 mg PO QHS RF: 0 meclizine 25 MG tablet 25 mg PO 4X/DAY PRN PRN (Reason: Dizziness) Qty: 20 RF: 0 promethazine 25 MG tablet 25 mg PO Q6H PRN PRN (Reason: Nausea) Qty: 10 RF: 0 aspirin [Baby Aspirin] 81 mg Tablet,Chewable 81 mg PO DAILY RF: 0 [facility] Care Provider[facility] Referrals: Keagan Nixon MD [STAFF PHYSICIAN] - 1 Week if not improving [facility] [Primary Care Provider] - Disposition Disposition: Home, Self Care
[2021-06-25 07:56] LABS: Absolute Lymphocyte Count 1.61 X10^3/uL (0.83-4.51); Absolute Neutrophil Count 2.6 X10^3/uL (2.0-7.7); Basophil# 0.05 X10^3/uL; Eosinophil# 0.12 X10^3/uL; Eosinophils% 2.4 % (0-5); Hematocrit 41.4 % (40-54); Hemoglobin 13.6 g/dL (13.0-16.5); Lymphocyte # 1.61 X10^3/ul (0.83-4.51); Lymphocyte % 32.7 % (19-41); Mean Corp Hgb Conc 32.9 g/dL (32-36); Mean Corpuscular Hgb 29.1 pg (27.0-32.0); Mean Corpuscular Volume 88.5 fL (80-94); Mean Platelet Vol. 8.7 fl (6.2-12.0); Monocyte# 0.55 X10^3/uL; Monocyte% 11.2 % (0-10); NRBC Flagged by Analyzer 0 % (0-5); Neutrophil # 2.57 X10^3/uL (2.7-7.7); Neutrophil % 52.3 % (47-70); Platelet Count 236 K/mm3 (150-450); RBC Distribution Width CV 13.2 % (11.6-14.6); RBC Distribution Width SD 42.6 fl (35.1-43.9); Red Blood Count 4.68 M/mm3 (4.6-6.2); White Blood Count 4.9 K/mm3 (4.4-11.0)
[2021-06-25] MEDS: Meclizine HCl 25 MG Tablet PO (08:10)
[2021-06-25 08:20] LABS: Anion Gap 2 (5-15); BUN 16 mg/dL (7-18); BUN/Creat Ratio 20.9 RATIO (10-20); Calcium,Total 8.7 mg/dL (8.5-10.1); Chloride 106 mmol/L (98-107); Creatinine, Serum 0.76 mg/dL (0.70-1.30); EST Glomerular Filtration Rate 110 mL/min (>60); Est Glom Filt Rate - Afr Amer 133 mL/min (>60); Estimated Creatinine Clearance 102.07 ml/min; Glucose 80 mg/dL (74-106); Potassium 4.2 mmol/L (3.5-5.1); Sodium Level 138 mmol/L (136-145); Troponin-I HS 4 pg/mL (3.0-78.0)
[2021-06-25 08:21] LABS: Prothrombin Time (Protime)PT. 12.5 SECONDS (11.7-14.9)
[2021-06-25 08:22] LABS: Partial Thromboplast Time 31.9 Seconds (24.1-36.2)
[2021-06-25 08:24] VITALS: BP 144/96; PULSE 63; RESP 20; O2SAT 94
[2021-06-25 09:24] VITALS: BP 135/94; PULSE 56; RESP 19; O2SAT 95
[2021-06-25 10:00] VITALS: BP 130/92; PULSE 57; RESP 18; O2SAT 97
[2021-06-25 11:17] VITALS: BP 134/91; PULSE 56; RESP 16; O2SAT 95
== END 2021-06-25 11:17 | disposition home or self-care (01) ==
PROVIDERS: Emergency Provider Emergency Medicine; Visit Provider Emergency Medicine
DX: H81.399 Other peripheral vertigo, unspecified ear (principal); H93.19 Tinnitus, unspecified ear; I10 Essential (primary) hypertension; E78.5 Hyperlipidemia, unspecified; I25.2 Old myocardial infarction; Z79.899 Other long term (current) drug therapy; Z79.82 Long term (current) use of aspirin; Z87.891 Personal history of nicotine dependence
CPT/HCPCS: 70450; 70496; 70498; 71045; 80048; 84484; 85025; 85610; 85730; 93005; 99285; Q9967; A4216

== ENCOUNTER 2022-04-16 10:18 | Emergency (ER) | payer OTHER, SELFPAY ==
[2022-04-16 10:19] VITALS: BP 138/95; PULSE 80; RESP 18; TEMP 35.9; O2SAT 98; BMI 34.7
--- NOTE | 2022-04-16 10:46 | EX.ED.DYSGE1 ---
HPI History of Present Illness Chief Complaint: General Illness Informant: patient Onset/Context/Timing Onset: Yesterday Context: Gradual Onset Timing: Intermittent Quality: Lightheaded like I am going to pass out Location: Generalized Worsened by: Nothing Relieved by: Nothing Narrative Narrative: Patient presents with lightheadedness that began yesterday. Patient states he feels like he is going to pass out. Patient states this comes and goes. Patient states he has been constant for the last few hours. Patient states it came on gradually. Patient states nothing makes it worse and nothing makes it better. Patient states he recently tested positive for COVID-19 4 days ago. Patient states he started having some symptoms of an upper respiratory infection last week. Patient admits to some subjective chills but denies any fevers. PFSH PFS Medical History Hay fever Heart attack Hemorrhoids Hyperlipidemia Hypertension Home Medications carvedilol 12.5 mg tablet 0.5 tab PO BID #90 tabs 09/18/18 [History Last Taken Unknown] lisinopril 5 mg tablet 2.5 mg PO DAILY #90 tabs 09/18/18 [History Last Taken Unknown] isosorbide mononitrate 30 mg tablet,extended release 24 hr 30 mg PO DAILY 11/01/19 [History Last Taken Unknown] meclizine 25 mg tablet 25 mg PO 4X/DAY PRN PRN Dizziness #20 tabs 11/01/19 [Rx Last Taken Unknown] promethazine 25 mg tablet 25 mg PO Q6H PRN PRN Nausea #10 tabs 11/01/19 [Rx Last Taken Unknown] simvastatin 40 mg tablet 40 mg PO QHS 11/01/19 [History Last Taken Unknown] aspirin 81 mg chewable tablet 81 mg PO DAILY 06/25/21 [History Last Taken Unknown] meclizine 25 mg tablet 25 mg PO Q8H PRN PRN Dizziness #20 tabs 06/25/21 [Rx Last Taken Unknown] Allergy/AdvReac Type Severity Reaction Status Date / Time No Known Allergies Allergy Verified 04/16/22 10:19 Surgical History Hx of heart artery stent Social History Smoking Status: Former smoker alcohol intake: current Alcohol type: beer details: weekly ROS ROS ED Constitutional Constitutional ED: Reports chills and subjective; Denies fever(s) Eyes Eyes: Denies blurry vision or change in vision ENT ENT ED: Denies rhinorrhea or sore throat Cardiovascular Cardiovascular: Denies chest pain or palpitations Respiratory/Chest Respiratory/Chest: Reports cough; Denies dyspnea Gastrointestinal Gastrointestinal: Denies nausea or vomiting Genitourinary Genitourinary ED: Denies dysuria or hematuria Musculoskeletal Musculoskeletal: Denies back pain or neck pain Integumentary Denies abscess or rash Neurologic Neurologic: Denies headache(s) or paresthesias Allergic/Immunologic Allergic/Immunologic ED: Denies mouth swelling or urticaria EXAM Physical Exam Const Vital Signs: 04/16/22 10:19 04/16/22 11:15 04/16/22 11:15 Temperature 96.6 F L Temperature Source Temporal Pulse Rate 80 68 Pulse Rate [Lying] Pulse Rate [Sitting (for 1 minute prior to obtaining)] Pulse Rate [Standing (for 1 minute prior to obtaining)] Respiratory Rate 18 16 Blood Pressure 138/95 H Blood Pressure [Lying] Blood Pressure [Sitting (for 1 minute prior to obtaining)] Blood Pressure [Standing (for 1 minute prior to obtaining)] Blood Pressure Mean 109 Blood Pressure Mean [Lying] Blood Pressure Mean [Sitting (for 1 minute prior to obtaining)] Blood Pressure Mean [Standing (for 1 minute prior to obtaining)] Pulse Ox 98 97 Oxygen Delivery Method Room Air Room Air 04/16/22 11:38 04/16/22 12:19 Temperature Temperature Source Pulse Rate 67 Pulse Rate [Lying] 62 Pulse Rate [Sitting (for 1 minute prior to obtaining)] 63 Pulse Rate [Standing (for 1 minute prior to obtaining)] 67 Respiratory Rate 18 Blood Pressure Blood Pressure [Lying] 118/88 H Blood Pressure [Sitting (for 1 minute prior to obtaining)] 123/87 H Blood Pressure [Standing (for 1 minute prior to obtaining)] 111/86 H Blood Pressure Mean Blood Pressure Mean [Lying] 98 Blood Pressure Mean [Sitting (for 1 minute prior to obtaining)] 99 Blood Pressure Mean [Standing (for 1 minute prior to obtaining)] 94 Pulse Ox 100 Oxygen Delivery Method Room Air Positive well nourished and well developed General Appearance ED: well developed and NAD HEENT Reports moist mucous membranes Neck supple and no JVD Resp normal respiratory effort and clear to auscultation bilaterally Cardio regular rate, regular rhythm and no murmurs GI normal to inspection, nondistended, normoactive bowel sounds and non-tender Palpation: soft Extremity normal to inspection General Extremety ED: Negative for edema or tenderness General Extremity: Negative for edema Neuro oriented x3, CN's II-XII intact bilaterally and no sensory deficits noted Sensorium / Orientation: alert Motor Exam: strength 5/5 throughout Psych mental status grossly normal Skin no rashes or lesions noted MDM MDM MDM Narrative Medical decision making narrative: Due to the patient's lightheadedness and recent COVID-19 test, we will obtain CBC to check for leukocytosis and anemia. We will check basic metabolic profile to check for electrolyte abnormality and renal function. We will check orthostatic vital signs. We will repeat the COVID-19 antigen along with influenza a and influenza B antigens. We will check a chest x-ray to evaluate for possible pneumonia. Patient will be given IV fluids. Lab Data Lab results narrative: CBC was reviewed. White blood cell count was slightly low at 3.3. The remainder was within normal limits. Basic metabolic profile was reviewed glucose was slightly elevated at 108 and chloride was slightly elevated at 110. Anion gap was 3. Labs: Laboratory Results - last 24 hr 04/16/22 04/16/22 11:05 11:05 WBC 3.3 L RBC 4.95 Hgb 14.4 Hct 44.6 MCV 90.1 MCH 29.1 MCHC 32.3 RDW Std Deviation 42.5 RDW Coeff of Tena 12.8 Plt Count 172 MPV 9.1 Immature Gran % (Auto) 0.300 Neut % (Auto) 44.8 L Lymph % (Auto) 39.2 [place] % (Auto) 13.0 H Eos % (Auto) 2.1 Baso % (Auto) 0.6 Absolute Neuts (auto) 1.5 L Absolute Lymphs (auto) 1.30 Nucleated RBC % 0 Sodium 143 Potassium 4.2 Chloride 110 H Carbon Dioxide 30.0 Anion Gap 3 L BUN 18 Creatinine 0.80 Estim Creat Clear Calc 95.74 Est GFR (MDRD) Af Amer 127 Est GFR (MDRD) Non-Af 105 BUN/Creatinine Ratio 22.6 H Glucose 108 H Calcium 8.6 Radiography Diagnostic Testing: Clinical Impression(s) from Imaging Studies Chest X-Ray 04/16/22 11:30 IMPRESSION: No acute cardiopulmonary abnormality. No interval change. Electronically Signed: Anmol Sorensen MD at 12:31 EST , PA and lateral chest x-ray was obtained. There are 2 views. On my interpretation, lung mcneill are clear. There is normal cardiac silhouette. Bony thorax is normal. There is no acute process noted. Radiologist also interpreted the x-ray and agrees. Treatment and Re-Evaluation Narrative: Patient is feeling better on reevaluation. Patient was advised of his findings. Patient was instructed to continue to drink plenty of fluids. Patient was instructed to follow-up with his primary care physician in 5 to 7 days. Patient was instructed return if worse in any way. Patient understood and was agreeable with the plan. All questions were answered. Discharge Plan Triage Chief Complaint: General Illness ED Provider: Jesse Palacio Dx/Rx/DC Orders Clinical Impression: COVID-19, Mild dehydration Instructions: Coronavirus Disease 2019 (COVID-19): Caring for Yourself or Others Prescriptions: No Action lisinopril 5 mg tablet 2.5 mg PO DAILY Qty: 90 carvedilol 12.5 mg tablet 0.5 tab PO BID Qty: 90 Label Comments: TAKE 1 2 (ONE HALF) TABLET BY MOUTH TWICE DAILY isosorbide mononitrate 30 mg tablet extended release 24 hr 30 mg PO DAILY Label Comments: TAKE 1 TABLET BY MOUTH ONCE DAILY simvastatin 40 MG tablet 40 mg PO QHS meclizine 25 MG tablet 25 mg PO 4X/DAY PRN PRN (Reason: Dizziness) Qty: 20 0RF promethazine 25 MG tablet 25 mg PO Q6H PRN PRN (Reason: Nausea) Qty: 10 0RF aspirin [Baby Aspirin] 81 mg Tablet,Chewable 81 mg PO DAILY meclizine [meclizine] 25 MG tablet 25 mg PO Q8H PRN PRN (Reason: Dizziness) Qty: 20 0RF [facility]Primary [facility] Provider[facility] - 5-7 Days Disposition Disposition: Home, Self Care
[2022-04-16] MEDS: 0.9% Normal Saline 1,000 ML 1000 ML IV (11:11)
[2022-04-16] MEDS: Ipratropium/Albuterol Sulfate 3 ML AMPUL.NEB INHALATION (11:12)
[2022-04-16 11:15] VITALS: PULSE 68; RESP 16; O2SAT 97
[2022-04-16 11:16] LABS: Absolute Neutrophil Count 1.5 X10^3/uL (2.0-7.7); Basophil# 0.02 X10^3/uL; Basophil% 0.6 % (0-1); Eosinophil# 0.07 X10^3/uL; Eosinophils% 2.1 % (0-5); Hematocrit 44.6 % (40-54); Hemoglobin 14.4 g/dL (13.0-16.5); Lymphocyte % 39.2 % (19-41); Mean Corp Hgb Conc 32.3 g/dL (32-36); Mean Corpuscular Hgb 29.1 pg (27.0-32.0); Mean Corpuscular Volume 90.1 fL (80-94); Mean Platelet Vol. 9.1 fl (6.2-12.0); Monocyte# 0.43 X10^3/uL; NRBC Flagged by Analyzer 0 % (0-5); Neutrophil # 1.49 X10^3/uL (2.7-7.7); Neutrophil % 44.8 % (47-70); Platelet Count 172 K/mm3 (150-450); RBC Distribution Width CV 12.8 % (11.6-14.6); RBC Distribution Width SD 42.5 fl (35.1-43.9); Red Blood Count 4.95 M/mm3 (4.6-6.2); White Blood Count 3.3 K/mm3 (4.4-11.0)
[2022-04-16 11:28] LABS: Anion Gap 3 (5-15); BUN 18 mg/dL (7-18); BUN/Creat Ratio 22.6 RATIO (10-20); Calcium,Total 8.6 mg/dL (8.5-10.1); Chloride 110 mmol/L (98-107); EST Glomerular Filtration Rate 105 mL/min (>60); Est Glom Filt Rate - Afr Amer 127 mL/min (>60); Estimated Creatinine Clearance 95.74 ml/min; Glucose 108 mg/dL (74-106); Potassium 4.2 mmol/L (3.5-5.1); Sodium Level 143 mmol/L (136-145)
--- NOTE | 2022-04-16 11:30 | RAD_ITS ---
EXAM: XR CHEST, 2 VIEWS CLINICAL INDICATION: Cough TECHNIQUE: Frontal and lateral views of the chest. This report was created using [employer] report generation technology. COMPARISON: XR Chest dated 06/25/2021 FINDINGS: LUNGS AND PLEURAL SPACES: Normal. No consolidation or edema. No pneumothorax. No effusion. HEART: Normal heart size. MEDIASTINUM: No mediastinal or hilar mass. BONES/JOINTS: No acute abnormality. SOFT TISSUES: Normal. RAD/Chest PA and Lateral IMPRESSION: No acute cardiopulmonary abnormality. No interval change. Electronically Signed: Anmol Sorensen MD at 12:31 EST ,
[2022-04-16 11:38] VITALS: BP 111/86; BP 118/88; BP 123/87; PULSE 62; PULSE 63; PULSE 67
[2022-04-16 12:19] VITALS: PULSE 67; RESP 18; O2SAT 100
== END 2022-04-16 13:51 | disposition home or self-care (01) ==
PROVIDERS: Emergency Provider Emergency Medicine; Visit Provider Emergency Medicine
DX: U07.1 COVID-19 (principal); E86.0 Dehydration; Z87.891 Personal history of nicotine dependence
CPT/HCPCS: 71046; 80048; 85025; 87428; 94640; 96360; 96361; 99284; J7030; A4216

== ENCOUNTER 2022-06-16 13:38 | Emergency (ER) | payer OTHER, SELFPAY ==
[2022-06-16 13:39] VITALS: BP 151/109; PULSE 91; RESP 16; TEMP 36.2; O2SAT 95; BMI 36.1
--- NOTE | 2022-06-16 13:54 | RAD_ITS ---
STUDY: X-RAY CHEST REASON FOR EXAM: Male, 61 years old. Chest pain TECHNIQUE: Single AP portable view of the chest. COMPARISON: Comparison is made with prior study dated October 14, 2022 and June 25, 2021. FINDINGS: EKG electrodes are seen. The lungs are clear and expanded. There is no demonstrated pleural abnormality. Normal size heart. Normal mediastinum and quentin. Normal visualized pulmonary arteries. Normal visualized aortic arch and descending thoracic aorta. Normal visualized thoracic spine. Normal visualized ribs, clavicles, and shoulders. There is no demonstrated abnormality of the visualized soft tissue structures of the upper abdomen. RAD/Chest 1 View (Portable) IMPRESSION: Normal x-ray examination of the chest. Electronically Signed: Klever Cotton MD at 14:51 EDT ,
--- NOTE | 2022-06-16 14:00 | EKG12_ITS ---
Test Reason : PALP Blood Pressure : / mmHG Vent. Rate : 089 BPM Atrial Rate : 089 BPM P-R Int : 166 ms QRS Dur : 082 ms QT Int : 368 ms P-R-T Axes : 073 -42 016 degrees QTc Int : 447 ms Normal sinus rhythm Left axis deviation Abnormal ECG Confirmed by LUIS FERNANDO WEIR, LYDIA ([id number]), desk editor LARA CHAN ([id number]) on 06/17/2022 10:54:27 AM Referred By: DANIA Confirmed By:LYDIA GOULD MD
[2022-06-16 14:17] VITALS: O2SAT 98
[2022-06-16 14:22] LABS: Absolute Lymphocyte Count 1.85 X10^3/uL (0.83-4.51); Absolute Neutrophil Count 2.2 X10^3/uL (2.0-7.7); Basophil# 0.05 X10^3/uL; Eosinophil# 0.14 X10^3/uL; Eosinophils% 2.9 % (0-5); Hematocrit 41.8 % (40-54); Hemoglobin 13.3 g/dL (13.0-16.5); Lymphocyte # 1.85 X10^3/ul (0.83-4.51); Lymphocyte % 38.4 % (19-41); Mean Corp Hgb Conc 31.8 g/dL (32-36); Mean Corpuscular Hgb 28.9 pg (27.0-32.0); Mean Corpuscular Volume 90.9 fL (80-94); Mean Platelet Vol. 9.3 fl (6.2-12.0); Monocyte# 0.61 X10^3/uL; Monocyte% 12.7 % (0-10); NRBC Flagged by Analyzer 0 % (0-5); Neutrophil # 2.15 X10^3/uL (2.7-7.7); Neutrophil % 44.6 % (47-70); Platelet Count 221 K/mm3 (150-450); RBC Distribution Width CV 13.2 % (11.6-14.6); RBC Distribution Width SD 43.8 fl (35.1-43.9); White Blood Count 4.8 K/mm3 (4.4-11.0)
--- NOTE | 2022-06-16 14:24 | ED.VIS.CHEST ---
HPI History of Present Illness Chief Complaint: Palpitations Narrative Narrative: 61-year-old male presenting with palpitations. He states he had about a 2-minute run of feeling like he was having palpitations. He did not catch his heart rate. He states he went to get his blood pressure checked and it was in the 170s over 101 range. He does not have any chest pain but stated he did feel little short of breath that he was a little bit sweaty. No nausea/vomiting. He states has been otherwise well prior to today. He did take a nitroglycerin today but he states this was in 2019. History of CAD, cardiac stents. [facility] Medical History Hay fever Heart attack Hemorrhoids Hyperlipidemia Hypertension Home Medications carvedilol 12.5 mg tablet 0.5 tab PO BID #90 tabs 09/18/18 [History Last Taken Unknown] lisinopril 5 mg tablet 2.5 mg PO DAILY #90 tabs 09/18/18 [History Last Taken Unknown] isosorbide mononitrate 30 mg tablet,extended release 24 hr 30 mg PO DAILY 11/01/19 [History Last Taken Unknown] meclizine 25 mg tablet 25 mg PO 4X/DAY PRN PRN Dizziness #20 tabs 11/01/19 [Rx Last Taken Unknown] promethazine 25 mg tablet 25 mg PO Q6H PRN PRN Nausea #10 tabs 11/01/19 [Rx Last Taken Unknown] simvastatin 40 mg tablet 40 mg PO QHS 11/01/19 [History Last Taken Unknown] aspirin 81 mg chewable tablet 81 mg PO DAILY 06/25/21 [History Last Taken Unknown] meclizine 25 mg tablet 25 mg PO Q8H PRN PRN Dizziness #20 tabs 06/25/21 [Rx Last Taken Unknown] Allergy/AdvReac Type Severity Reaction Status Date / Time No Known Allergies Allergy Verified 06/16/22 13:41 Surgical History Hx of heart artery stent Social History Smoking Status: Former smoker alcohol intake: current Alcohol type: beer details: weekly ROS ROS ED Constitutional Constitutional ED: Denies chills or fever(s) Eyes Eyes: Denies blurry vision or change in vision ENT ENT ED: Denies rhinorrhea Cardiovascular Cardiovascular: Reports palpitations; Denies chest pain Respiratory/Chest Respiratory/Chest: Reports dyspnea; Denies cough Gastrointestinal Gastrointestinal: Denies abdominal pain or constipation Genitourinary Genitourinary ED: Denies dysuria or hematuria Musculoskeletal Musculoskeletal: Denies arthralgias or back pain Integumentary Denies abscess Neurologic Neurologic: Denies headache(s) or paresthesias Psychiatric Psychiatric: Denies anxiety or depression EXAM Physical Exam Const Vital Signs: 06/16/22 13:39 06/16/22 14:17 06/16/22 14:17 Temperature 97.2 F L Temperature Source Temporal Pulse Rate 91 Respiratory Rate 16 Respiratory Effort Normal Non-Labored Blood Pressure 151/109 H Blood Pressure Mean 123 Pulse Ox 95 98 Oxygen Delivery Method Room Air Room Air Positive well nourished General Appearance ED: NAD HEENT Reports TM's clear and moist mucous membranes Tympanic Membrane ED: Yes TM's clear Eyes PERRL and EOMs intact bilaterally Neck no lymphadenopathy Chest Wall inspection of chest normal Resp normal respiratory effort and clear to auscultation bilaterally Auscultation: Negative for rales, rhonchi or wheezes Cardio regular rate and regular rhythm Extremity General Extremety ED: Yes edema General Extremity: edema Neuro oriented x3 and CN's II-XII intact bilaterally Sensorium / Orientation: awake and alert Psych mental status grossly normal Skin no rashes or lesions noted MDM MDM MDM Narrative Medical decision making narrative: 59-year-old male presenting with palpitations. He states it was about 2 months this lasted. He went and got his blood pressure checked which was high although they did not let him rest before they checked it. He does not have any chest pain. He did report some shortness of breath and feeling a little sweaty. Differential at this point is ACS, electrolyte abnormality, dehydration, hypertension. He does not have any cough, fevers to suspect pneumonia. No DVT/PE risk factors and no chest pain. We will obtain a CBC for white blood cell count, hemoglobin, platelets, differential. BMP for renal function electrolytes, glucose, anion gap. High-sensitivity troponin, EKG will be obtained. Chest x-ray as well. EKG on my interpretation shows a normal sinus rhythm with a ventricular rate of 89 bpm without sign of ischemic change or dysrhythmia. CBC shows normal white blood cell count of 4.8. Hemoglobin chronic are stable. Platelets are normal. Renal function electrolytes unremarkable. High-sensitivity troponin is 5. EKG sinus rhythm at a rate 89 bpm without sign of ischemic change or dysrhythmia. This is on my interpretation. Chest x-ray shows no acute process on my interpretation. Radiology interpretation agrees. At this point feel the patient is stable for discharge home. Recommend follow-up with his PCP to ensure resolution. Return precautions were discussed. Impression: 1. Palpitations Lab Data Labs: Laboratory Results - last 24 hr 06/16/22 06/16/22 14:15 14:15 WBC 4.8 RBC 4.60 Hgb 13.3 Hct 41.8 MCV 90.9 MCH 28.9 MCHC 31.8 L RDW Std Deviation 43.8 RDW Coeff of Tena 13.2 Plt Count 221 MPV 9.3 Immature Gran % (Auto) 0.400 Neut % (Auto) 44.6 L Lymph % (Auto) 38.4 [place] % (Auto) 12.7 H Eos % (Auto) 2.9 Baso % (Auto) 1.0 Absolute Neuts (auto) 2.2 Absolute Lymphs (auto) 1.85 Nucleated RBC % 0 Sodium 141 Potassium 4.8 Chloride 109 H Carbon Dioxide 30.0 Anion Gap 2 L BUN 19 H Creatinine 1.13 Estim Creat Clear Calc 67.78 Est GFR (MDRD) Af Amer 84 Est GFR (MDRD) Non-Af 70 BUN/Creatinine Ratio 16.8 Glucose 98 Calcium 9.1 Troponin I High Sens 5 Radiography Diagnostic Testing: Clinical Impression(s) from Imaging Studies Chest X-Ray 06/16/22 13:54 IMPRESSION: Normal x-ray examination of the chest. Electronically Signed: Klever Cotton MD at 14:51 EDT , Discharge Plan Triage Chief Complaint: Palpitations ED Provider: Isaías Oneil Dx/Rx/DC Orders Prescriptions: No Action lisinopril 5 mg tablet 2.5 mg PO DAILY Qty: 90 carvedilol 12.5 mg tablet 0.5 tab PO BID Qty: 90 Label Comments: TAKE 1 2 (ONE HALF) TABLET BY MOUTH TWICE DAILY isosorbide mononitrate 30 mg tablet extended release 24 hr 30 mg PO DAILY Label Comments: TAKE 1 TABLET BY MOUTH ONCE DAILY simvastatin 40 MG tablet 40 mg PO QHS meclizine 25 MG tablet 25 mg PO 4X/DAY PRN PRN (Reason: Dizziness) Qty: 20 0RF promethazine 25 MG tablet 25 mg PO Q6H PRN PRN (Reason: Nausea) Qty: 10 0RF aspirin [Baby Aspirin] 81 mg Tablet,Chewable 81 mg PO DAILY meclizine [meclizine] 25 MG tablet 25 mg PO Q8H PRN PRN (Reason: Dizziness) Qty: 20 0RF [facility] [Primary [facility] Provider] -
[2022-06-16 14:41] LABS: Anion Gap 2 (5-15); BUN 19 mg/dL (7-18); BUN/Creat Ratio 16.8 RATIO (10-20); Calcium,Total 9.1 mg/dL (8.5-10.1); Chloride 109 mmol/L (98-107); Creatinine, Serum 1.13 mg/dL (0.70-1.30); EST Glomerular Filtration Rate 70 mL/min (>60); Est Glom Filt Rate - Afr Amer 84 mL/min (>60); Estimated Creatinine Clearance 67.78 ml/min; Glucose 98 mg/dL (74-106); Potassium 4.8 mmol/L (3.5-5.1); Sodium Level 141 mmol/L (136-145); Troponin-I HS 5 pg/mL (3.0-78.0)
[2022-06-16 17:31] VITALS: BP 142/96; PULSE 77; RESP 20; O2SAT 95
== END 2022-06-16 17:31 | disposition home or self-care (01) ==
PROVIDERS: Emergency Provider Student in an Organized Health Care Education/Training Program; Visit Provider Student in an Organized Health Care Education/Training Program
DX: R00.2 Palpitations (principal); I25.10 Atherosclerotic heart disease of native coronary artery without angina pectoris; I10 Essential (primary) hypertension; I25.2 Old myocardial infarction; E78.5 Hyperlipidemia, unspecified; Z95.5 Presence of coronary angioplasty implant and graft; Z79.82 Long term (current) use of aspirin; Z79.899 Other long term (current) drug therapy; Z87.891 Personal history of nicotine dependence
CPT/HCPCS: 71045; 80048; 84484; 85025; 93005; 99283; A4216

== ENCOUNTER → 2023-04-07 | Outpatient (CLI) | payer OTHER, SELFPAY ==
--- NOTE | 2023-04-07 09:44 | ECHOCS_ITS ---
Reason For Study: Chest Pain Procedure This was a 2D Doppler, Color Flow transthoracic echocardiogram. The study was technically difficult. Contrast injection was performed. Exam performed in department. Left Ventricle Normal left ventricle. Mild concentric left ventricular hypertrophy. Left ventricular systolic function is normal. The estimated ejection fraction is 55 %. Stage 1 diastolic dysfunction. No regional wall motion abnormalities noted. Right Ventricle Normal RV size. Normal systolic function. Atria Normal left atrium. Normal right atrium. Bubble contrast study negative for right to left interatrial shunt. Mitral Valve Normal mitral valve. Tricuspid Valve Normal tricuspid valve. Mild (1+) tricuspid valve insufficiency. Pulmonary artery systolic pressure is 30 mmHg. Aortic Valve Normal aortic valve. Pulmonic Valve Normal pulmonic valve. Great Vessels Normal aortic root. The pulmonary artery is normal size. Normal inferior vena cava. Pericardium/Pleural No pericardial effusion. Medication 22 gauge I.V. with prn adaptor inserted into right arm. Diluted definity 4ml given slow IV push to enhance endocardial definition. Performed a rapid injection of agitated mix of 9 cc saline and 1cc air to assess for atrial septal defect. MMode/2D Measurements & Calculations LVIDd: 5.1 cm IVSd: 1.2 cm LA dimension: 4.2 cm LVIDs: 3.3 cm LVPWd: 1.3 cm RVDd: 3.6 cm FS: 35.2 % LAV(MOD-bp): 57.4 ml LVAd ap4: 34.1 cm2 SV(MOD-sp4): 57.3 ml LAV(MOD-bp) Indexed: 25.7 ml/m2 LVLd ap4: 8.8 cm LAV(MOD-sp2): 69.5 ml EDV(MOD-sp4): 109.5 ml LAV(MOD-sp4): 45.6 ml EDV(sp4-el): 112.7 ml LVAs ap4: 21.1 cm2 LVLs ap4: 7.2 cm ESV(MOD-sp4): 52.2 ml ESV(sp4-el): 52.8 ml EF(MOD-sp4): 52.3 % EF(sp4-el): 53.2 % SV(sp4-el): 59.9 ml LA A4 area: 18.0 cm2 RA A4 area: 20.8 cm2 TAPSE: 1.9 cm Time Measurements MV dec time: 0.26 sec Doppler Measurements & Calculations MV E max isreal: 61.5 cm/sec Lat Peak E' Isreal: 10.7 cm/sec Med Peak E' Isreal: 7.3 cm/sec MV A max isreal: 93.0 cm/sec E/E' lat: 5.8 E/E' med: 8.5 MV E/A: 0.66 MV V2 max: 91.8 cm/sec MV P1/2t max isreal: 67.3 cm/sec Ao V2 max: 123.5 cm/sec MV max P.4 mmHg MV P1/2t: 86.3 msec Ao max P.1 mmHg MV V2 mean: 47.1 cm/sec MV mean P.0 mmHg MV dec slope: 228.6 cm/sec2 MV V2 VTI: 28.1 cm MVA(P1/2t): 2.5 cm2 LV V1 max: 107.0 cm/sec PA V2 max: 80.2 cm/sec TR max isreal: 258.2 cm/sec LV V1 max P.6 mmHg TR max P.7 mmHg ECHO/Echo Complete W/ Contrast Interpretation Summary Normal left ventricle. Mild concentric left ventricular hypertrophy. Left ventricular systolic function is normal. The estimated ejection fraction is 55 %. Stage 1 diastolic dysfunction. Pulmonary artery systolic pressure is 30 mmHg. Contrast injection was performed. Ordering Physician: Michelle Davies Referring Physician: Michelle Davies Performed By: Ton Arnold RCS
--- OUTSIDE RECORDS SUMMARY | 2023-04-07 10:13 | XMS RPT_ITS | CCD ---
Author Name Unknown Address [address] [place] [address] Organization [facility] Encounters Encounter Date Encounter Type Care Provider Facility Start: 07-18-2018 Patient encounter procedure Facility:UNKNOWN Summary Purpose Family History No Family History Records Found Advance Directives No Advanced Directives Records Found Additional Source Comments (unrecognized sect ion and content) No Status Records Found INFORMATION SOURCE (unrecogn ized section and content) FOR RECORDS PERTAINING TO PATIENTS WHO ARE OR HAVE BEEN ENROLLED IN A CHEMICAL DEPENDENCY/SUBSTANCEABUSE PROGRAM, SOME INFORMATION MAY BE OMITTED. This clinical summary was aggregated from multiple sources. Caution should be exercised in using it in the provision of clinical care. This summary normalizes information from multiple sources, and as a consequence, information in this document may materially change the coding, format and clinical context of patient data. In addition, data may be omitted in some cases. CLINICAL DECISIONS SHOULD BE BASED ON THE PRIMARY CLINICAL RECORDS. [facility]. provides no warranty or guarantee of the accuracy or completeness of information in this document.
== END | disposition home or self-care (01) ==
PROVIDERS: Referring Provider Physician Assistant Medical; Visit Provider Physician Assistant Medical
DX: I25.10 Atherosclerotic heart disease of native coronary artery without angina pectoris (principal)
CPT/HCPCS: 93306; Q9957; A4216; C8929

== ENCOUNTER 2023-05-19 06:50 | Day surgery (SDC) | payer OTHER, SELFPAY ==
--- NOTE | 2023-05-09 09:24 | PCM.HP.BLA ---
History and Physical Date of Admission: 05/19/23 Major Rudolph is a 62 year old male who presents for a cardiac catheterization. He has a history of coronary artery disease with RCA and PDA in 2008. He also has a history of hypertension. In 2008 he had angioplasty and stenting done of the RCA system at a hospital in [place]. At that time he was noted to have severe disease in his LAD and moderate disease in his circumflex. Patient had a stress test at the [facility] in December 2022 which demonstrated no reversible ischemia, fixed inferior defect likely represents attenuation artifact versus small possible scar. Wall motion is within normal limits. He was able to walk for 6 minutes on a Kevin protocol achieving 7 METS. Pt states that he has been having chest pain in the last 4 years. He has noted that he would have chest pain with exertion. This is increasing in frequency. 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 He would slow down and then it would go away. He does feel that his exercise tolerance has decreased over the last year. He did have a stress test. Results are noted below. He was to see a farm machinery engine mechanic and Griselda, his Imdur was increased. CP helped somewhat. He was then started on Ranexa. This has helped with his CP. He has tried to reproduce the pain with Ranexa and has not been able to reproduce pain. 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 He does not have any worsening SOB. He does palpitations, this is not new. He does feel that he notices this more over the last 2-3 years. He notes that this is 1-2 times a week but can last up to 5 minutes. He does not have any lightheadedness/dizziness. He does not have any claudication. He does not have any edema. He has not needed to use any NTG. Intake Vital Signs See EMR Allergies See EMR Medications See EMR Ejection fraction %: 60 to 64 PFSH Medical History Atherosclerosis of coronary artery of [place] heart without angina pectoris COVID-19 ELIZABETH (dyspnea on exertion) Hay fever Hemorrhoids History of alcohol abuse History of inferior wall myocardial infarction History of pulmonary embolus (PE) Hyperlipidemia Hypertension Mucous cyst of digit of hand NSVT (nonsustained ventricular tachycardia) Surgical History History of coronary artery stent placement (~01/2009) Family History Mother CVA (cerebral vascular accident) Diabetes Social History Smoking Status: Former smoker how long ago did patient quit [id number] and again in 2015 alcohol intake: current Alcohol type: beer details: weekly substance use type: does not use ROS Const Const: Positive for fatigue (see HPI); Negative for weakness, fever(s) or headache(s) Eyes Eyes: Negative for blind spots, loss of peripheral vision or transient loss of vision ENT ENT: Negative for headache(s), dizziness, tinnitus, Nosebleed/epistaxis or balance problems Cardio Chest Pain: Yes (see HPI) Palpitations: No Edema: None Muscle aches with walking: None Resp Respiratory: Negative for SOB with activity, SOB at rest, SOB orthopnea\SOB lying down or Cough GI GI: Negative nausea, vomiting, heartburn or vomiting blood/hematemesis : Negative for hematuria Musc Musc: Negative for muscle aches/ myalgia, muscle weakness, joint pain or balance problems Neuro Neuro: Negative for dizziness, lightheadedness, near syncope, syncope, orthostatic symptoms, headache(s) or weakness Sarath Hematologic/Lymphatic: Negative for easy bleeding Endo Endo: Positive for fatigue (see HPI) Cardiology Exam Const Appearance: cooperative, no acute distress and well developed Orientation: alert, awake and oriented x3 Head Head: normocephalic and atraumatic Mouth: moist mucous membranes Eyes General: appearance normal, both eyes and all related structures Conjunctivae: conjunctivae normal Pupils: PERRL EOM: EOM intact bilaterally Neck Neck: normal visual inspection, no lymphadenopathy and no JVD Carotids: Negative bruit Neck Mass: Negative Neck mass Chest Chest inspection: normal inspection of the chest and symmetric chest movement Auscultation: Bilateral: Clear to Auscultation Cardio Palpation: normal PMI Rate: regular rate Rhythm: regular rhythm Heart sounds: S1 normal and S2 normal; Negative rub, gallop or murmur GI GI: normal to inspection, soft, no hepatosplenomegaly and bowel sounds present; Negative tender Neuro General: patient alert, patient awake, patient oriented x3, CN's II-XI intact bilaterally and moves all extremities Extremities Pulses: Normal: Right Posterior Tibial Pulse, Left Posterior Tibial Pulse, Right Radial Pulse and Left Radial Pulse Lower Extremity Edema: None: Bilateral Psych Psychological: normal affect Supplemental Info Supplemental Information Echocardiogram in 2008 demonstrated mild concentric LVH, mild segmental systolic dysfunction with an estimated ejection fraction of 45%. Mild mitral insufficiency. Patient had a stress test at the [facility] in December 2022 which demonstrated no reversible ischemia, fixed inferior defect likely Riis represents attenuation artifact versus small possible scar. Wall motion is within normal limits. He was able to walk for 6 minutes on a Kevin protocol achieving 7 METS. Echocardiogram in 2017 this is similar to does have occasional palpitations declines Holter monitor stress test results are similar to 2009 because he still having there is demonstrated an ejection fraction of 60 to 65%. Patient had event monitor in 2019 which demonstrated predominantly sinus rhythm with nonsustained 5 beat ventricular run. Recent lipid profile demonstrates total cholesterol 124, HDL 58, LDL 68. Assessment and Plan Assessment and Plan (1) Atherosclerosis of coronary artery of [place] heart without angina pectoris: Status: Chronic Plan: Pt does have known CAD. He does acknowledge exertional chest pain, that is becoming more frequent, and lasting longer. Would like to proceed with a cardiac catheterization to further assess this. Depending on results, further recommendations will be made. (2) Chest pain: Will proceed with a cardiac catheterization to further assess. Depending on results, further recommendations will be made.
[2023-05-17 11:57] LABS: Absolute Lymphocyte Count 1.75 X10^3/uL (0.83-4.51); Absolute Neutrophil Count 3.3 X10^3/uL (2.0-7.7); Basophil# 0.04 X10^3/uL; Basophil% 0.7 % (0-1); Eosinophil# 0.12 X10^3/uL; Hematocrit 43.8 % (40-54); Hemoglobin 14.3 g/dL (13.0-16.5); Lymphocyte # 1.75 X10^3/ul (0.83-4.51); Lymphocyte % 29.7 % (19-41); Mean Corp Hgb Conc 32.6 g/dL (32-36); Mean Corpuscular Hgb 28.9 pg (27.0-32.0); Mean Corpuscular Volume 88.7 fL (80-94); Mean Platelet Vol. 9.5 fl (6.2-12.0); Monocyte# 0.62 X10^3/uL; Monocyte% 10.5 % (0-10); NRBC Flagged by Analyzer 0 % (0-5); Neutrophil # 3.34 X10^3/uL (2.7-7.7); Neutrophil % 56.8 % (47-70); Platelet Count 286 K/mm3 (150-450); RBC Distribution Width CV 13.2 % (11.6-14.6); RBC Distribution Width SD 43.4 fl (35.1-43.9); Red Blood Count 4.94 M/mm3 (4.6-6.2); White Blood Count 5.9 K/mm3 (4.4-11.0)
--- NOTE | 2023-05-17 12:00 | RAD_ITS ---
STUDY: X-RAY CHEST REASON FOR EXAM: Male, 62 years old. ELIZABETH TECHNIQUE: PA and lateral views of the chest. COMPARISON: June 16, 2022 FINDINGS: The lungs are clear and expanded. There is no demonstrated pleural abnormality. Normal size heart. Normal mediastinum and quentin. Normal visualized pulmonary arteries. Normal visualized aortic arch and descending thoracic aorta. There are diffuse degenerative changes of the visualized thoracic spine. Normal visualized ribs, clavicles, and shoulders. There is no demonstrated abnormality of the visualized soft tissue structures of the upper abdomen. RAD/Chest PA and Lateral IMPRESSION: Degenerative changes, as described above. No demonstrated acute cardiopulmonary process. Electronically Signed: Thomas Guerra MD at 22:59 EST ,
[2023-05-17 12:23] LABS: Prothrombin Time (Protime)PT. 13.2 SECONDS (11.7-14.9)
[2023-05-17 12:24] LABS: Partial Thromboplast Time 30.3 Seconds (24.1-36.2)
[2023-05-17 12:34] LABS: Anion Gap 4 (5-15); BUN 16 mg/dL (7-18); BUN/Creat Ratio 16.4 RATIO (10-20); Calcium,Total 9.3 mg/dL (8.5-10.1); Chloride 109 mmol/L (98-107); Creatinine, Serum 0.97 mg/dL (0.70-1.30); EST Glomerular Filtration Rate 83 mL/min (>60); Est Glom Filt Rate - Afr Amer 100 mL/min (>60); Glucose 92 mg/dL (74-106); Potassium 4.4 mmol/L (3.5-5.1); Sodium Level 141 mmol/L (136-145)
[2023-05-18 07:38] VITALS: BMI 35.7
--- OUTSIDE RECORDS SUMMARY | 2023-05-19 07:10 | XMS RPT_ITS | CCD ---
Author Name Unknown Address [address] [place] [address] Organization [facility] Encounters Encounter Date Encounter Type Care Provider [...] BE BASED ON THE PRIMARY CLINICAL RECORDS. [facility] [employer] [facility]. provides no warranty or guarantee of the accuracy or completeness of information in this document.
--- NOTE | 2023-05-19 08:49 | CL.D_ITS ---
Patient Name: SYLVESTER LACY Study Date: 05/19/2023 Performing: Meek Gaines MD Ht: 69 inches 175.26 cm : 1960 Wt: 242 lbs 109.77 kg Age: 62 Gender: male BSA: 2.24 PROCEDURE(S) PERFORMED DC01-(25312)LHC/COR/LV CLINICAL PROFILE AND INDICATIONS Indications: Suspected CAD Heart Failure: None Stress/Imaging Stress/Image Study Performed: No CAD Presentations: Stable angina. CONCLUSIONS Severe triple-vessel disease with preserved left ventricular systolic function. RECOMMENDATIONS Will recommend coronary bypass surgery in favor of multivessel complex PCI. DESCRIPTION OF PROCEDURE The patient arrived to the procedure lab. The risks and benefits of the procedure as well as a full description of our services here and current unavailability of surgical backup were fully explained to the patient and/or their significant other prior to the catheterization. The Timeout was completed, verifying the correct patient and procedure. The patient's procedural site was prepped and draped in the usual fashion. Local anesthetic was given subcutaneously to right radial region with Lidocaine 2%. Using a modified Seldinger technique, arterial access was obtained via the right radial artery, a 6Fr sheath was inserted. Left Coronary Artery selective angiography was performed in multiple views using a 5 Fr. 4.0 [place] catheter. Right Coronary Artery selective angiography was then performed in multiple views using a 5 Fr. 4.0 [place] catheter. Left Coronary Artery selective angiography was performed in multiple views using a 5 Fr. JL3.5 catheter. Left Coronary Artery selective angiography was performed in multiple views using a 5 Fr. JL4 catheter. Left Ventriculography was performed in DELATORRE projection using a 5 Fr. Pigtail catheter. LV to AO pullback pressures were then recorded.The arterial sheath was pulled and a TR Band was applied for hemostasis CORONARY ANGIOGRAPHY DOMINANCE: Right Dominant LEFT HEART ASSESSMENT Left Ventricular Ejection Fraction: by LV Gram 60 % Normal LV wall motion Normal Left Ventricular systolic function LEFT MAIN: Mild calcification, No significant disease noted LEFT ANTERIOR DESCENDING ARTERY: Moderate to severely calcified vessel with proximal first diagonal branch with 90% stenosis, second diagonal branch with 90% ostial stenosis in the proximal and mid left anterior descending artery with long area of 90% stenosis. The distal vessel has mild disease. CIRCUMFLEX ARTERY: Arises from a separate ostium with the first obtuse marginal branch with 90% proximal stenosis in the mid circumflex artery with 80% stenosis and moderate disease noted in the distal segment. RIGHT CORONARY ARTERY: Dominant right coronary artery previously stented with proximal 90% stenosis and mid 30 to 40% stenosis and distal mild diffuse disease. COMPLICATIONS No Complications PROCEDURE MEDICATIONS Fentanyl 50 mcg IV Versed 1 mg IV Versed 1 mg IV Oxygen: 2 L/min via nasal cannula Baby Aspirin (81mg) 1 Tabs PO @ 05/19/2023 07:13:29 Heparin given IA 05/19/2023 07:57:11 Verapamil 2.5mg, Ntg 100mcgs, 3000 units of Heparin given IA 05/19/2023 07:57:11 SUMMARY OF HEMODYNAMIC DATA Time AIR REST ECG 07:15:08 ECG 07:43:04 Art 119/70 (84) 08:02:32 AO 112/78 (94) SA 08:12:42 LV 126/9, 20 08:27:17 LV 113/10, 19 08:27:25 LV 109/10, 19 08:27:57 LVp 104/10, 19 08:28:03 AOp 123/66 (98) 08:28:10 08:43:44 Signed By Meek Gaines MD On 05/19/2023 08:48:08 Meek Gaines MD
== END 2023-05-19 10:15 | disposition home or self-care (01) ==
LOC: CLSP 06:51
PROVIDERS: Physician Assistant Medical; Referring Provider Internal Medicine Cardiovascular Disease; Visit Provider Internal Medicine Cardiovascular Disease
DX: I25.118 Atherosclerotic heart disease of native coronary artery with other forms of angina pectoris (principal); E78.5 Hyperlipidemia, unspecified; I10 Essential (primary) hypertension; R07.9 Chest pain, unspecified; Z87.891 Personal history of nicotine dependence; Z86.16 Personal history of COVID-19; Z79.82 Long term (current) use of aspirin; Z79.899 Other long term (current) drug therapy; Z86.718 Personal history of other venous thrombosis and embolism; Z95.5 Presence of coronary angioplasty implant and graft
CPT/HCPCS: 36415; 71046; 80048; 85025; 85610; 85730; 93458; 99152; 99153; J7040; Q9967; A4216; C1769; C1894

== ENCOUNTER → 2023-07-03 | Outpatient (CLI) | payer OTHER, SELFPAY ==
--- NOTE | 2023-07-03 08:03 | PCM.CR.HP2 ---
CR - History & Physical General Arrival date:: 07/03/23 Arrival time:: 08:04 Date of Referral:: 06/20/23 Date of CR Evaluation:: 07/03/23 Referring Physician: ARCHANA Primary Diagnosis: S/P CABG History of Present Cardiac Event Onset Date Coronary Artery Bypass Graft:: Yes (06/01/23) Medications Ambulatory Orders Medication Instructions Recorded aspirin 81 mg chewable tablet 81 mg PO DAILY 06/25/21 ibuprofen 800 mg tablet 800 mg PO TID PRN pain 03/09/23 multivitamin 1 tab PO DAILY 03/09/23 carvedilol 12.5 mg tablet 12.5 mg PO BID #90 tabs 06/20/23 rosuvastatin 10 mg tablet 40 mg PO DAILY 06/20/23 tamsulosin 0.4 mg capsule 0.8 mg PO QHS 06/20/23 Allergies Allergies No Known Allergies Allergy (Verified 06/20/23 10:56) Sleep Disorder Evaluation Hx of Sleep Apnea: No Do you snore loudly (louder than talking or can be heard through closed doors)?: No Do you often feel tired/ fatigued/ sleepy during daytime?: No Has anyone observed you stop breathing during sleep?: No History of Hypertension (for STOP score): Yes STOP Results: Negative Advanced Directives Advanced Directives Power of Bottom Sander: No Living Will: Yes Advance Directives Information Provided: No Advance Directives on File: No DNR Order?:: No Past Medical History Covid-19 Screening Physicial Symptoms Other Clinical Concerns Exposure Risk Pertinent Comorbidities Has a serious heart condition:: Yes Past Medical Illness Past Medical History Atherosclerosis of coronary artery of [place] heart without angina pectoris I25.10 COVID-19 U07.1 ELIZABETH (dyspnea on exertion) R06.09 Hay fever J30.1 Hemorrhoids K64.9 History of alcohol abuse F10.11 History of inferior wall myocardial infarction I25.2 History of pulmonary embolus (PE) Z86.711 Hyperlipidemia E78.5 Hypertension I10 Mucous cyst of digit of hand M67.449 NSVT (nonsustained ventricular tachycardia) I47.29 Past Surgical History Past Surgical History (Updated 06/20/23 @ 11:51 by Renea Dodson RN) History of coronary artery stent placement (~01/2009) Z95.5 PCI-RCA/PDA with NUNO X 3. 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 type of work 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):: 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 Hours worked per day:: 6 Returned to work on:: 07/03/23 Hobbies, Recreation, Social Activities Hobbies: Other (hunting, fishing, smoking meat) Recreational Activities: I am able to engage in most, but not all activities Social Environment Status Marital Status: Single Current Living Arrangements Living Environment:: Alone Children How many children do you have?: 1 Do any of your children live nearby?: Yes Safety Do you feel safe in your surroundings?: Yes Assistance Do you need any assistance at home?: no Review of Systems Review of Systems Hints Review of Present Symptoms: Reports Operative Discomfort, Dizziness/Lightheadedness, Fatigue, Appetite - Normal and Appetite - Special Diet; Denies Shortness of Breath at Rest, Shortness of Breath with Exertion, PVD, Angina, Wound Healing, Heart Arrhythmia/Irregularities, Sleep - Normal or Sexual Changes Pain Is Patient Pain Free?: No Pain Location: lower extremity Pain Level: 12/04 Risk Factor Assessment Chief Complaint Chief Complaint: S/P CABG Vital Signs Pulse Ox: 95 Blood Pressure: 110/74 Pulse Pulse Rate: 92 Hypertension Blood Pressure Sitting - Right Arm: 110/74 Obesity Height: 5 ft 9 in Weight:: 236 lb Weight in Pounds: 236.0 lbs Body Mass Index (BMI): 34.8 Nutritional Referral for Obesity: No Physical Inactivity Physical Inactivity: Reg Exercise 30 min/day Risk Stratification Risk Guidelines: Moderate Risk: Risk Factor for Smoking, Risk Factor for Diabetes, Risk Factor for Sedentary Lifestyle and Risk Factor for Depression and Highest Risk: Risk Factor for Dyslipidemia, Risk Factor for Obesity and Risk Factor for Hypertension For Smoking Smoking Risk Guidelines For Dyslipidemia Dyslipidemia Risk Guidelines For Diabetes Mellitus Diabetes Risk Guidelines For Obesity/Overweight Obesity/Overweight Risk Guidelines For Hypertension Hypertension Risk Guidelines For Sedentary Lifestyle Sedentary Lifestyle Risk Guidelines For Depression Depression Risk Guidelines Family History Family History Mother CVA (cerebral vascular accident) Diabetes Motivation Motivation to Participate On a scale of 1 to 10, how prepared are you to commit to attending program?: 10 What do you see as barriers to successfully being able to complete the program?: nothing What do you see as the benefits of succesfully completing the program? In other words, what do you hope to get out of participating in the program?: weight loss and better health Are there issues you are dealing with that will interfere with completing the program?: no Do you have a spouse or signficant other, family or friends who will help support you to complete the program?: yes
[2023-07-03 08:09] VITALS: BP 110/74; PULSE 92; O2SAT 95
--- NOTE | 2023-07-03 08:09 | CR.ITP_ITS ---
Diagnosis General Information Admitting Diagnosis: S/P CABG Personal Learning Style:: Audio/Visual Stage of change r/t lifestyle modifications:: Contemplation Gave educational material for:: Treating Heart Disease, How The Heart Works, What it means to have Heart Disease, How Coronary Artery Disease is Diagnosed, Heart Procedures, What Heart Medications Do, Risk Factors & Modifications, Living an Active Life, Nutrition, Emotions & Heart Disease, Stress Management & Relaxation and Sleep Disorders & Heart Disease Education/Goals Cardiac Rehabilitation Goals Personal Goals: Initial Assessment: Improve energy level, Get back to work, or to resume activities faster, Improve muscle strength and endurance and Improve diet and eating habits (eat healthier) Scale for measuring improvement of personal goals Diagnosis & Disease Process Outcomes/Goals: Pt IDs own risk factors & lifestyle modifications by Session 10, Verbalizes symptoms of angina & response by session 3., Pt independently manages and Other Additional Outcomes/Goals: Plan/Interventions: Assist Pt to ID & engage in lifestyle modification to reduce CVD risk, Instruct on individual risk factors, Review symptoms of angina & emergency actions, Review secondary diagnosis & identify educational needs. and Other see comment 30 day Reassessments:: Not Met 30 day Reassessments:: Not Met 30 day Reassessments:: Not Met 30 day Reassessments:: Not Met Final Reassessments:: Not Met Safety Referral to Physical Therapy: No Referral to [facility] Case Management: No Fall Risk Assessed:: Yes Assistive Devices:: None Exercise - Initial Assessment Visit Date of Eval: 07/03/23 (initial eval ) Mets: Pre-: >3 METS for 30 minutes by discharge, >5 METS for 30 minutes by discharge, >7 METS for 30 minutes by discharge and Unable to meet goal due to: (see comment below) Physician Prescribed Exercise Modalities: Treadmill, Rower, Airdyne, NuStep, SciFit and Lateral Stewart Frequency: 2x/week for 18 weeks [36 sessions] and 3x/week for 12 weeks [36 sessions] Intensity: 60-80% of age predicted maximum heart rate reserve Duration: 30 - 45 minutes Current METSs:: 3.0 Target Heart Rate:: 103-118 Resting Blood Pressure: 110/74 EKG Type: SR Outcomes & Goals Goals:: Verbalizes understanding of THR, RPE & goal METS by session 6, Documents in home exercise log/reports 30 min aerobic 5 day/wk by DC, Demonstrates accurate pulse taking by DC and Other additional outcome/goals: see below Intervention & Plan Exercise Program Goals: Instruct on personal THR & RPE, Instruct on MET level & personal MET goal, Show patient to take own pulse /validate performance until accurate, Instruct on home exercise and Other additional plan/int Physical Activity Home Exercise Physical Activity - Home Exercise: Safe Exercise, Warm-up, Self-monitoring, Cool-Down, Home Exercise > 30 min Daily and Sitting Time <3 hours/daily Outcomes & Goals Outcomes/Goals: Demonstrates correct Warm-up/exercise Cool-Down (S3) if = 2.5 METs, Verbalizes symptoms of exercise intolerance by Session 3 (S3), Demonstrate safe equipment use (S3) & follows exercise prescrition (6) and Other: See below Intervention & Plan Plan/Intervention: Instruct warm-up & cool-down if exercising at > 2 METs, Instruct on symptoms of exercise intolerance & actions to take, Instruct & monitor on saf, Assess intial functional capacity & safety risk and Other See below Nutrition - Initial Assessment Program Goals Nutrition Program Goals Patient has diagnosis of Hyperlipidemia (ICD E78)?: Yes Visit Date of Eval: 07/03/23 (initial eval ) Cholesterol/Lipids (Other Core Measures) Determine presence & major risk factors that modify LDL goal: Cigarette smoking, Hypertension or hypertensive medication, Low HDL cholesterol <40 mg/dL*, Family history of premature CHD in Male < 55 years: female <65 yearsFa and Age men > 45 years; women >/= 55 years Outcomes/Goals: Pt IDs own risk factors & lifestyle modifications by Session 10, Verbalizes symptoms of angina & response by session 3., Pt independently manages and Other Additional Outcomes/Goals: Intervention/Plan: Advocate for lipid panel cholesterol medication if applicable, Instruct on personal lipid levels & lipid goals/NCEP guidelines, Instruct on cholesterol and Other additional plan/int Referral to dietitian:: Yes Diabetes (Other Core Measures) Diabetes Type: Not Applicable Weight Mgt (Other Care) Height: 5 ft 9 in Weight:: 236 lb BMI: 34.8 Diagnosis Overweight/Obesity BMI> 30% ICD-10 E66: Yes Diagnosis High BMI/Morbid Obesity BMI> 35% ICD-10 Z68: No Outcomes/Goals: Pt sets, maintains & shows weight loss goal & trend during rehab and Other additional outcomes/goals Intervention/Plan: Instruct on ideal BMI & set weight loss goal w/patient, Assist pt to ID & incorporate diet changes for weight loss by S9, Refer to Structured Weight Loss program as appropriate, Encourage goal of using 250- 300dcal per session for weight loss and Other additional plan/interventions Healthy Eating Habits Will attend diet classes:: Yes Outcomes/Goals:: Consume diet rich in vegs,fruits,whole grain/high fiber,fish,lean meat, Limit sat/trans fats,cholesterol & added salts & sugars and Other additional outcome/goals: Intervention/Plan:: Assess current eating habits and Other Additional plan/interventions Education Gave educational materials for:: Signs & symptoms of hypoglycemia, Signs & symptoms of hyperglycemia, Relate diabetes to coronary artery disease and Heal thy eating Core - Initial Assessment Visit Date of Eval: 07/03/23 (initial eval ) Medication Compliance Preventative Medication(s):: Aspirin, Statin/lipid and Beta constance H/O mental health issues: depression, anxiety, or addiction?: No Doesn?t believe in the benefits of treatment?: No Believes medications are unnecessary or harmful?: No Has a concern about medication side effects?: No Expresses concern over the cost of medications?: No Outcomes/Goals: Verbalizes medications,desired effect & common side effects @ DC, Pt self-reports following medication regimen, Keeps card in wallet w/medications listed by DC and Other additional outcome/goals: Interventions/plans: Instruct on medication effects & side effects, Review medication list w/patient every two weeks, Instruct importance of taking meds as ordered & assist problem solving and Other additional Tobacco Use Tobacco Use: Non-smoker (stopped 10 years ago) How long ago did you quit using tobacco products?: Greater than or equal to 6 months ago Do you use smokeless tobacco?: No Hypertension Hypertension Diagnosis:: Hypertension ICD-10 I10 Resting Blood Pressure:: 110/74 [place] [employer] Hypertension Guidelines Outcomes/Goals: Able to verbalize/achieve optimal blood pressure <130/80, Incorporates diet changes & exercise for blood pressure control by DC and Other additional outcomes/goals Interventions/plan: Instruct on optimal blood pressure, hypertension & medications, Instruct on effects of sodium, alcohol, stress, exercise &hypertension and Other additional plan/interventions Tobacco Cessation Referral Smoking Cessation Referral:: No Individual Education/Counseling:: No Education Schedule Given:: Yes Psychosocial - Initial Assess VIsit Date of Eval: 07/03/23 (initial eval ) History of previous Mental disease:: No Target Goals Target Goals Outcomes/Goals: See list Psychosocial Outcomes/Goals:: ID's personal stressors & 2 strategies to manage stress by discharge and Other Additional outcome/goals: Intervention/Plan: See List Interventions/Plan:: Assess stressors,coping strategies & signs of derpression on admission, Instruct/assist pt to develop coping & personal stress Mgt strategies, Refer to Behavioral Health if appropriate, Refer to Physician if appropriate, Instruct patient to recognize signs & symptoms of depression, Instruct patient to recog and Other additional plan/intervention Patient Health Questionnaire PHQ-9 Screening Initial Assessment: 1. Little interest or pleasure in doing things: Not at all 2. Feeling down, depressed, or hopeless: Not at all 3. Trouble falling or staying asleep, or sleeping too much: More than half the days 4. Feeling tired or having little energy: Several days 5. Poor appetite or overeating: Not at all 6. Feeling bad about yourself -- or that you are a failure or have let yourself or your family down: Not at all 7. Trouble concentrating on things, such as reading the newspaper or watching television: Not at all 8. Moving or speaking so slowly that other people could have noticed. Or the opposite - being so fidgety or restless that you have been moving around a lot more than usual: Not at all 9. Thoughts that you would be better off , or of hurting yourself in some way: Not at all How difficult have these problems made it for you to do your work, take care of things at home, or get along with other people?: Somewhat difficult Total Score: 3 ODESSA-Q SV Test Statements CAD is a disease of the arteries in the heart: False Examples of risk factors for heart disease: True Angina is chest pain or discomfort: True The benefits of resistance training include: True Eating more meat and dairy products: False Anti-platelet medications such as aspirin are important: False The only effective way to manage stress: False An exercise warm-up slowly increases heart rate: True Prepared, processed foods usually have high sodium: True Depression is common after a heart attack: True The statin medications lower cholesterol: True To control blood pressure, lower the amount of sodium: True If someone gets chest discomfort during walking: False Transfats are partially hydrogenated vegetable oils: True Sleep apnea that is not treated increases the risk: I Don't Know To control cholesterol, one should become a vegetarian: False Someone knows if he/she is exercising at the right level: True Diabetes cannot be prevented with exercise & health eating: False Stress is a large risk for heart attack: True A diet that can help lower blood pressure is rich in: True Total Score Total Correct Responses: 18 Self-Efficacy 6-Item Scale Initial Assessment: We would like to know how confident you are in doing certain activities. Please select your confidence level for: Fatigue Select Number: 10 Physical Discomfort or Pain Select Number: 9 Emotional Distress Select Number: 9 Other Symptoms or Health Problems Select Number: 9 Different Tasks and Activities Select Number: 9 Medication Select Number: 9 Total Score:: 9 Nutrition Survey Nutrition Survey Instructions Scoring Instructions Nutrition Survey Initial: Have you lost >10 lbs over the past 2 months without trying?: Yes Are you following a special diet at home for diabetes, low fat, or low salt?: Yes Are you interested in meeting with a dietitian for help understanding your diet?: Yes Do you eat less than 3 meals a day?: Yes Do you eat fatty meats (major, sausage, ribs, etc), fried foods, desserts, large amounts of salad dressings, margarine, butter, or cheese most days?: Yes Do you have food allergies? [Enter types in comment field]: No Do you eat in restaurants more than 3 times a week?: No Do you season food with salt, seasoning salt, or garlic salt?: No Do you used canned, boxed, frozen meals, or soups, seasoning packets?: Yes Total Score:: 6 Exercise - Final/Discharge Physician Prescribed Exercise Modalities: Treadmill, Rower, Airdyne, NuStep, SciFit and Lateral Senior Hydrogeologist Frequency: 2x/week for 18 weeks [36 sessions] and 3x/week for 12 weeks [36 sessions] Intensity: 60-80% of age predicted maximum heart rate reserve Current METSs:: 3.0 Target Heart Rate:: 103-118 Nutrition - 30-Day Assessment Weight Mgt (Other Care) Height: 5 ft 9 in Weight:: 236 lb BMI: 34.8 Nutrition - 60-Day Assessment Weight Mgt (Other Care) Height: 5 ft 9 in Weight:: 236 lb BMI: 34.8 Core - Final Assessment Hypertension Resting Blood Pressure:: 110/74 [place] [employer] Hypertension Guidelines Core - 60-Day Assessment Hypertension Resting Blood Pressure:: 110/74 [place] [employer] Hypertension Guidelines Psychosocial - 30-Day Assess Target Goals Target Goals Psychosocial - 60-Day Assess Target Goals Target Goals Psychosocial - 90-Day Assess Target Goals Target Goals Psychosocial - Final Assessmen Target Goals Target Goals Nutrition - 90-Day Assessment Weight Mgt (Other Care) Height: 5 ft 9 in Weight:: 236 lb BMI: 34.8 Nutrition - Final Assessment Program Goals Patient has diagnosis of Hyperlipidemia (ICD E78)?: Yes Weight Mgt (Other Care) Height: 5 ft 9 in Weight:: 236 lb BMI: 34.8
[2023-07-03 08:15] VITALS: BP 110/74
[2023-07-03 08:21] VITALS: BMI 34.8
[2023-07-03 08:51] VITALS: BMI 34.8
== END | disposition home or self-care (01) ==
LOC: CR 07:44
PROVIDERS: Referring Provider Internal Medicine Cardiovascular Disease; Visit Provider Internal Medicine Cardiovascular Disease
DX: E78.5 Hyperlipidemia, unspecified (principal)

== ENCOUNTER → 2023-07-17 | Outpatient (CLI) | payer OTHER, SELFPAY ==
[2023-07-03 08:51] VITALS: BMI 34.8
== END | disposition home or self-care (01) ==
LOC: LABSPEC 09:00
PROVIDERS: Visit Provider Physician Assistant Medical
DX: S21.101A Unspecified open wound of right front wall of thorax without penetration into thoracic cavity, initial encounter (principal); L08.9 Local infection of the skin and subcutaneous tissue, unspecified
CPT/HCPCS: 87070; 87075; 87077; 87186; 87205

== ENCOUNTER 2023-07-24 15:45 | Outpatient (RCR) | payer OTHER, SELFPAY ==
[2023-07-03 08:51] VITALS: BMI 34.8
== END 2023-07-25 23:59 ==
LOC: CR 15:45
PROVIDERS: Referring Provider Internal Medicine Cardiovascular Disease; Visit Provider Internal Medicine Cardiovascular Disease
DX: Z95.1 Presence of aortocoronary bypass graft (principal)
CPT/HCPCS: 93798

== ENCOUNTER 2023-07-24 16:10 | Outpatient (CLI) | payer OTHER, SELFPAY ==
[2023-07-03 08:51] VITALS: BMI 34.8
[2023-07-24 16:56] LABS: Absolute Lymphocyte Count 1.63 X10^3/uL (0.83-4.51); Absolute Neutrophil Count 4.7 X10^3/uL (2.0-7.7); Basophil# 0.07 X10^3/uL; Eosinophil# 0.25 X10^3/uL; Eosinophils% 3.4 % (0-5); Hematocrit 39.4 % (40-54); Hemoglobin 12.4 g/dL (13.0-16.5); Lymphocyte # 1.63 X10^3/ul (0.83-4.51); Lymphocyte % 22.4 % (19-41); Mean Corp Hgb Conc 31.5 g/dL (32-36); Mean Corpuscular Hgb 28.2 pg (27.0-32.0); Mean Corpuscular Volume 89.7 fL (80-94); Mean Platelet Vol. 8.8 fl (6.2-12.0); Monocyte# 0.64 X10^3/uL; Monocyte% 8.8 % (0-10); NRBC Flagged by Analyzer 0 % (0-5); Neutrophil # 4.68 X10^3/uL (2.7-7.7); Neutrophil % 64.1 % (47-70); Platelet Count 213 K/mm3 (150-450); RBC Distribution Width CV 14.2 % (11.6-14.6); RBC Distribution Width SD 46.8 fl (35.1-43.9); Red Blood Count 4.39 M/mm3 (4.6-6.2); White Blood Count 7.3 K/mm3 (4.4-11.0)
[2023-07-24 17:25] LABS: Anion Gap 5 (5-15); BUN 20 mg/dL (7-18); BUN/Creat Ratio 23.2 RATIO (10-20); Calcium,Total 9.3 mg/dL (8.5-10.1); Chloride 107 mmol/L (98-107); Creatinine, Serum 0.86 mg/dL (0.70-1.30); EST Glomerular Filtration Rate 95 mL/min (>60); Est Glom Filt Rate - Afr Amer 115 mL/min (>60); Glucose 93 mg/dL (74-106); Magnesium 2.2 mg/dL (1.6-2.6); Potassium 4.5 mmol/L (3.5-5.1); Sodium Level 141 mmol/L (136-145); Thyroid Stim Hormone (TSH) 1.75 uIU/mL (0.358-3.74)
== END 2023-07-24 23:59 | disposition home or self-care (01) ==
LOC: LAB 16:12
PROVIDERS: Referring Provider Physician Assistant Medical; Visit Provider Physician Assistant Medical
DX: I49.3 Ventricular premature depolarization (principal); Z95.1 Presence of aortocoronary bypass graft
CPT/HCPCS: 36415; 80048; 83735; 84443; 85025

== ENCOUNTER 2023-08-23 15:45 | Outpatient (RCR) | payer OTHER, SELFPAY ==
[2023-07-03 08:51] VITALS: BMI 34.8
--- NOTE | 2023-08-02 09:52 | CR.ITP_ITS ---
Exercise - Initial Assessment Visit Session #:: 7 Nutrition - Initial Assessment Weight Mgt (Other Care) Height: 5 ft 9 in Weight:: 237 lb BMI: 34.9 Psychosocial - Initial Assess Target Goals Target Goals Patient Health Questionnaire PHQ-9 Screening 30-Day Re-eval Assessment: 1. Little interest or pleasure in doing things: Not at all 2. Feeling down, depressed, or hopeless: Not at all 3. Trouble falling or staying asleep, or sleeping too much: More than half the days 4. Feeling tired or having little energy: Several days 5. Poor appetite or overeating: Not at all 6. Feeling bad about yourself -- or that you are a failure or have let yourself or your family down: Not at all 7. Trouble concentrating on things, such as reading the newspaper or watching television: Not at all 8. Moving or speaking so slowly that other people could have noticed. Or the opposite - being so fidgety or restless that you have been moving around a lot more than usual: Not at all 9. Thoughts that you would be better off , or of hurting yourself in some way: Not at all How difficult have these problems made it for you to do your work, take care of things at home, or get along with other people?: Somewhat difficult Total Score: 3 Self-Efficacy 6-Item Scale 30-Day Re-eval Assessment: We would like to know how confident you are in doing certain activities. Please select your confidence level for: Fatigue Select Number: 10 Physical Discomfort or Pain Select Number: 9 Emotional Distress Select Number: 9 Other Symptoms or Health Problems Select Number: 9 Different Tasks and Activities Select Number: 9 Medication Select Number: 9 Total Score:: 9 Nutrition Survey Nutrition Survey Instructions Scoring Instructions Exercise - 30-day Assessment Visit Date of Eval: 08/02/23 Session #:: 7 Physician Prescribed Exercise Modalities: Treadmill, Airdyne and NuStep Frequency: 3x/week for 12 weeks [36 sessions] Intensity: 60-80% of age predicted maximum heart rate reserve Duration: 30 - 45 minutes Current METSs:: 5.6 Target Heart Rate:: 118-133 Current RPE:: 12-13.5 Maximum Excercise HR:: 122 Resting Blood Pressure: 132/86 Maximum Exercise Blood Pressure: 198/100 EKG Type: NSR to ST with rare vent couplets Outcomes & Goals Goals:: Verbalizes understanding of THR, RPE & goal METS by session 6, Documents in home exercise log/reports 30 min aerobic 5 day/wk by DC, Demonstrates accurate pulse taking by DC and Other additional outcome/goals: see below Intervention & Plan Exercise Program Goals: Instruct on personal THR & RPE, Instruct on MET level & personal MET goal, Show patient to take own pulse /validate performance until accurate, Instruct on home exercise and Other additional plan/int 30-day Reassessments 30 day Reassessments:: Progressing Reassessment Notes & Comments:: THR explained Physical Activity Home Exercise Physical Activity - Home Exercise: Safe Exercise, Warm-up, Self-monitoring, Cool-Down, Home Exercise > 30 min Daily and Sitting Time <3 hours/daily Outcomes & Goals Outcomes/Goals: Demonstrates correct Warm-up/exercise Cool-Down (S3) if = 2.5 METs, Verbalizes symptoms of exercise intolerance by Session 3 (S3), Demonstrate safe equipment use (S3) & follows exercise prescrition (6) and Other: See below Intervention & Plan Plan/Intervention: Instruct warm-up & cool-down if exercising at > 2 METs, Instruct on symptoms of exercise intolerance & actions to take, Instruct & monitor on saf, Assess intial functional capacity & safety risk and Other See below 30-day Reassessments 30 day Reassessments:: Progressing Reassessment Notes & Comments:: cool down encouraged Nutrition - 30-Day Assessment Program Goals Nutrition Program Goals Patient has diagnosis of Hyperlipidemia (ICD E78)?: Yes Visit Date of Eval: 08/02/23 Session #:: 7 Cholesterol/Lipids (Other Core Measures) Determine presence & major risk factors that modify LDL goal: Cigarette smoking, Hypertension or hypertensive medication, Low HDL cholesterol <40 mg/dL*, Family history of premature CHD in Male < 55 years: female <65 yearsFa and Age men > 45 years; women >/= 55 years Outcomes/Goals: Pt IDs own risk factors & lifestyle modifications by Session 10, Verbalizes symptoms of angina & response by session 3., Pt independently manages and Other Additional Outcomes/Goals: Intervention/Plan: Advocate for lipid panel cholesterol medication if applicable, Instruct on personal lipid levels & lipid goals/NCEP guidelines, Instruct on cholesterol and Other additional plan/int Referral to dietitian:: Yes 30-day Reassessments:: Progressing Reassessment Notes & Comments:: pt to meet with outpatient coding specialist Diabetes (Other Core Measures) Diabetes Type: Not Applicable Weight Mgt (Other Care) Height: 5 ft 9 in Weight:: 237 lb BMI: 34.9 Diagnosis Overweight/Obesity BMI> 30% ICD-10 E66: Yes Diagnosis High BMI/Morbid Obesity BMI> 35% ICD-10 Z68: No Outcomes/Goals: Pt sets, maintains & shows weight loss goal & trend during rehab and Other additional outcomes/goals Intervention/Plan: Instruct on ideal BMI & set weight loss goal w/patient, Assist pt to ID & incorporate diet changes for weight loss by S9, Refer to Structured Weight Loss program as appropriate, Encourage goal of using 250- 300dcal per session for weight loss and Other additional plan/interventions 30 day Reassessments:: Progressing Reassessment Notes & Comments:: pt to meet with outpatient coding specialist Healthy Eating Habits Will attend diet classes:: Yes Outcomes/Goals:: Consume diet rich in vegs,fruits,whole grain/high fiber,fish,lean meat, Limit sat/trans fats,cholesterol & added salts & sugars and Other additional outcome/goals: Intervention/Plan:: Assess current eating habits and Other Additional plan/interventions 30-day Reassessments:: Progressing Reassessment Notes & Comments:: pt to attend nutrition class Education Gave educational materials for:: Signs & symptoms of hypoglycemia, Signs & symptoms of hyperglycemia, Relate diabetes to coronary artery disease and Healthy eating Nutrition - 60-Day Assessment Weight Mgt (Other Care) Height: 5 ft 9 in Weight:: 237 lb BMI: 34.9 Core - 30-Day Assessment Visit Date of Eval: 08/02/23 Session #:: 7 Medication Compliance Preventative Medication(s):: Aspirin, Statin/lipid and Beta constance H/O mental health issues: depression, anxiety, or addiction?: No Doesn?t believe in the benefits of treatment?: No Believes medications are unnecessary or harmful?: No Has a concern about medication side effects?: No Expresses concern over the cost of medications?: No Outcomes/Goals: Verbalizes medications,desired effect & common side effects @ DC, Pt self-reports following medication regimen, Keeps card in wallet w/medications listed by DC and Other additional outcome/goals: Interventions/plans: Instruct on medication effects & side effects, Review medication list w/patient every two weeks, Instruct importance of taking meds as ordered & assist problem solving and Other additional 30-day Reassessments:: Progressing Reassessment Notes & Comments:: 07/25 carvedilol increased to 25 mg BID Tobacco Use Tobacco Use: Non-smoker Hypertension Hypertension Diagnosis:: Hypertension ICD-10 I10 Resting Blood Pressure:: 132/86 [place] [employer] Hypertension Guidelines Peak Exercise Blood Pressure:: 198/100 Outcomes/Goals: Able to verbalize/achieve optimal blood pressure <130/80, Incorporates diet changes & exercise for blood pressure control by DC and Other additional outcomes/goals Interventions/plan: Instruct on optimal blood pressure, hypertension & medications, Instruct on effects of sodium, alcohol, stress, exercise &hypertension and Other additional plan/interventions 30 day Reassessments:: Progressing Reassessment Notes & Comments:: pt encouraged to take his meds Tobacco Cessation Referral Smoking Cessation Referral:: No Individual Education/Counseling:: No Education Schedule Given:: Yes Psychosocial - 30-Day Assess VIsit Date of Eval: 08/02/23 Session #:: 7 History of previous Mental disease:: No Target Goals Target Goals Outcomes/Goals: See list Psychosocial Outcomes/Goals:: ID's personal stressors & 2 strategies to manage stress by discharge and Other Additional outcome/goals: Intervention/Plan: See List Interventions/Plan:: Assess stressors,coping strategies & signs of derpression on admission, Instruct/assist pt to develop coping & personal stress Mgt strategies, Refer to Behavioral Health if appropriate, Refer to Physician if appropriate, Instruct patient to recognize signs & symptoms of depression, Instruct patient to recog and Other additional plan/intervention 30-day Reassessments: 30 day Reassessments:: Met Psychosocial - 60-Day Assess Target Goals Target Goals Outcomes/Goals: See list Psychosocial Outcomes/Goals:: ID's personal stressors & 2 strategies to manage stress by discharge and Other Additional outcome/goals: Psychosocial - 90-Day Assess Target Goals Target Goals Psychosocial - Final Assessmen Target Goals Target Goals Nutrition - 90-Day Assessment Weight Mgt (Other Care) Height: 5 ft 9 in Weight:: 237 lb BMI: 34.9 Nutrition - Final Assessment Weight Mgt (Other Care) Height: 5 ft 9 in Weight:: 237 lb BMI: 34.9
[2023-08-02 10:03] VITALS: BP 132/86; BMI 34.9
== END 2023-08-25 23:59 ==
LOC: CR 15:45
PROVIDERS: Referring Provider Internal Medicine Cardiovascular Disease; Visit Provider Internal Medicine Cardiovascular Disease
DX: Z95.1 Presence of aortocoronary bypass graft (principal)
CPT/HCPCS: 93798; 97802

== ENCOUNTER 2023-08-30 15:45 | Outpatient (RCR) | payer OTHER, SELFPAY ==
[2023-08-02 10:03] VITALS: BMI 34.9
[2023-08-26 01:12] VITALS: BP 132/86
--- NOTE | 2023-08-30 05:41 | PCM.CR.ITP ---
Exercise - Initial Assessment Physician Prescribed Exercise Modalities: Treadmill, Rower and Schwinn Airdyne AD-7 Nutrition - Initial Assessment Weight Mgt (Other Care) Height: 5 ft 9 in Weight:: 233 lb BMI: 34.4 Psychosocial - Initial Assess Target Goals Target Goals Referral to Behavioral Health PS - Interventions: Yes: Attend Stress Management Classes and No: Referral to Behavioral Health if PHQ-9 score >9:, No: Referral to [facility] and No: Referral to Physician if PHQ-9 if score is 5-9: Patient Health Questionnaire PHQ-9 Screening 60-Day Re-eval Assessment: 1. Little interest or pleasure in doing things: Not at all 2. Feeling down, depressed, or hopeless: Not at all 3. Trouble falling or staying asleep, or sleeping too much: Several days 4. Feeling tired or having little energy: Not at all 5. Poor appetite or overeating: Not at all 6. Feeling bad about yourself -- or that you are a failure or have let yourself or your family down: Not at all 7. Trouble concentrating on things, such as reading the newspaper or watching television: Not at all 8. Moving or speaking so slowly that other people could have noticed. Or the opposite - being so fidgety or restless that you have been moving around a lot more than usual: Not at all 9. Thoughts that you would be better off , or of hurting yourself in some way: Not at all How difficult have these problems made it for you to do your work, take care of things at home, or get along with other people?: Not difficult at all Total Score: 1 Self-Efficacy 6-Item Scale 60-Day Re-eval Assessment: We would like to know how confident you are in doing certain activities. Please select your confidence level for: Fatigue Select Number: 10 Physical Discomfort or Pain Select Number: 10 Emotional Distress Select Number: 9 Other Symptoms or Health Problems Select Number: 9 Different Tasks and Activities Select Number: 9 Medication Select Number: 10 Total Score:: 9 Nutrition Survey Nutrition Survey Instructions Scoring Instructions Exercise - 30-day Assessment Physician Prescribed Exercise Modalities: Treadmill, Rower and Schwinn Airdyne AD-7 Exercise - 60-day Assessment Visit Date of Eval: 08/30/23 Session #:: 16 Comments:: Patient has missed 9 scheduled appointments Physician Prescribed Exercise Modalities: Treadmill, Rower and Schwinn Airdyne AD-7 Frequency: 3x/week for 12 weeks [36 sessions] Intensity: 60-80% of age predicted maximum heart rate reserve Duration: 30 - 45 minutes Current METSs:: 5.5 Target Heart Rate:: 118-133 Current RPE:: 12-13 Maximum Excercise HR:: 118-133 Resting Blood Pressure: 130/80 Maximum Exercise Blood Pressure: 182/86 EKG Type: NSR to sinus tach w/occasional PVCs, rare couplet. Outcomes & Goals Goals:: Verbalizes understanding of THR, RPE & goal METS by session 6, Documents in home exercise log/reports 30 min aerobic 5 day/wk by DC and Demonstrates accurate pulse taking by DC Intervention & Plan Exercise Program Goals: Instruct on personal THR & RPE, Instruct on MET level & personal MET goal, Show patient to take own pulse /validate performance until accurate and Instruct on home exercise 30-day Reassessments 30 day Reassessments:: Met Physical Activity Home Exercise Physical Activity - Home Exercise: Safe Exercise, Warm-up, Self-monitoring, Cool-Down, Home Exercise > 30 min Daily and Sitting Time <3 hours/daily Outcomes & Goals Outcomes/Goals: Demonstrates correct Warm-up/exercise Cool-Down (S3) if = 2.5 METs, Verbalizes symptoms of exercise intolerance by Session 3 (S3) and Demonstrate safe equipment use (S3) & follows exercise prescrition (6) Intervention & Plan Plan/Intervention: Instruct warm-up & cool-down if exercising at > 2 METs, Instruct on symptoms of exercise intolerance & actions to take, Instruct & monitor on saf and Assess intial functional capacity & safety risk 30-day Reassessments 30 day Reassessments:: Met Exercise - 90-day Assessment Physician Prescribed Exercise Modalities: Treadmill, Rower and Schwinn Airdyne AD-7 Exercise - Final/Discharge Physician Prescribed Exercise Modalities: Treadmill, Rower and Schwinn Airdyne AD-7 Nutrition - 30-Day Assessment Weight Mgt (Other Care) Height: 5 ft 9 in Weight:: 233 lb BMI: 34.4 Nutrition - 60-Day Assessment Program Goals Nutrition Program Goals Patient has diagnosis of Hyperlipidemia (ICD E78)?: Yes Visit Date of Eval: 08/30/23 Session #:: 16 Cholesterol/Lipids (Other Core Measures) Determine presence & major risk factors that modify LDL goal: Hypertension or hypertensive medication and Age men > 45 years; women >/= 55 years Outcomes/Goals: Pt IDs own risk factors & lifestyle modifications by Session 10, Verbalizes symptoms of angina & response by session 3. and Pt independently manages Intervention/Plan: Instruct on personal lipid levels & lipid goals/NCEP guidelines and Instruct on cholesterol Referral to dietitian:: Yes 30-day Reassessments:: Progressing Diabetes (Other Core Measures) Diabetes Type: Not Applicable Weight Mgt (Other Care) Not Applicable: No Height: 5 ft 9 in Weight:: 233 lb BMI: 34.4 Diagnosis Overweight/Obesity BMI> 30% ICD-10 E66: Yes Diagnosis High BMI/Morbid Obesity BMI> 35% ICD-10 Z68: No Outcomes/Goals: Pt sets, maintains & shows weight loss goal & trend during rehab Intervention/Plan: Instruct on ideal BMI & set weight loss goal w/patient, Assist pt to ID & incorporate diet changes for weight loss by S9, Refer to Structured Weight Loss program as appropriate and Encourage goal of using 250-300dcal per session for weight loss 30 day Reassessments:: Not Met Reassessment Notes & Comments:: Patient has lost 4 pounds in 60 days Healthy Eating Habits Will attend diet classes:: Yes Outcomes/Goals:: Consume diet rich in vegs,fruits,whole grain/high fiber,fish,lean meat and Limit sat/trans fats,cholesterol & added salts & sugars Intervention/Plan:: Assess current eating habits 30-day Reassessments:: Progressing Education Gave educational materials for:: Healthy eating Core - 60-Day Assessment Visit Date of Eval: 08/30/23 Session #:: 16 Medication Compliance Preventative Medication(s):: Aspirin, Statin/lipid and Beta constance H/O mental health issues: depression, anxiety, or addiction?: No Doesn?t believe in the benefits of treatment?: No Believes medications are unnecessary or harmful?: No Has a concern about medication side effects?: No Expresses concern over the cost of medications?: No Outcomes/Goals: Verbalizes medications,desired effect & common side effects @ DC, Pt self-reports following medication regimen and Keeps card in wallet w/medications listed by DC Interventions/plans: Instruct on medication effects & side effects, Review medication list w/patient every two weeks and Instruct importance of taking meds as ordered & assist problem solving 30-day Reassessments:: Met Tobacco Use Tobacco Use: Non-smoker Hypertension Hypertension Diagnosis:: Hypertension ICD-10 I10 Resting Blood Pressure:: 130/80 [place] [employer] Hypertension Guidelines Peak Exercise Blood Pressure:: 182/86 Outcomes/Goals: Able to verbalize/achieve optimal blood pressure <130/80 and Incorporates diet changes & exercise for blood pressure control by DC Interventions/plan: Instruct on optimal blood pressure, hypertension & medications and Instruct on effects of sodium, alcohol, stress, exercise &hypertension 30 day Reassessments:: Progressing Tobacco Cessation Referral Smoking Cessation Referral:: No Individual Education/Counseling:: No Education Schedule Given:: Yes Psychosocial - 30-Day Assess Target Goals Target Goals Referral to Behavioral Health PS - Interventions: Yes: Attend Stress Management Classes and No: Referral to Behavioral Health if PHQ-9 score >9:, No: Referral to [facility] and No: Referral to Physician if PHQ-9 if score is 5-9: Outcomes/Goals: See list Psychosocial Outcomes/Goals:: ID's personal stressors & 2 strategies to manage stress by discharge Psychosocial - 60-Day Assess VIsit Date of Eval: 08/30/23 Session #:: 16 Not Applicable: Yes History of previous Mental disease:: No Target Goals Target Goals Psychosocial Test Tool Used:: PHQ-9 Questionnaire phq-9 Severity Referral to Behavioral Health PS - Interventions: Yes: Attend Stress Management Classes and No: Referral to Behavioral Health if PHQ-9 score >9:, No: Referral to [facility] and No: Referral to Physician if PHQ-9 if score is 5-9: Outcomes/Goals: See list Psychosocial Outcomes/Goals:: ID's personal stressors & 2 strategies to manage stress by discharge Intervention/Plan: See List Interventions/Plan:: Assess stressors,coping strategies & signs of derpression on admission, Instruct/assist pt to develop coping & personal stress Mgt strategies, Instruct patient to recognize signs & symptoms of depression and Instruct patient to recog 30-day Reassessments: 30 day Reassessments:: Met Psychosocial - 90-Day Assess Target Goals Target Goals Referral to Behavioral Health PS - Interventions: Yes: Attend Stress Management Classes and No: Referral to Behavioral Health if PHQ-9 score >9:, No: Referral to [facility] and No: Referral to Physician if PHQ-9 if score is 5-9: Psychosocial - Final Assessmen Target Goals Target Goals Referral to Behavioral Health PS - Interventions: Yes: Attend Stress Management Classes and No: Referral to Behavioral Health if PHQ-9 score >9:, No: Referral to [facility] and No: Referral to Physician if PHQ-9 if score is 5-9: Nutrition - 90-Day Assessment Weight Mgt (Other Care) Height: 5 ft 9 in Weight:: 233 lb BMI: 34.4 Nutrition - Final Assessment Weight Mgt (Other Care) Height: 5 ft 9 in Weight:: 233 lb BMI: 34.4
[2023-08-30 05:44] VITALS: BP 130/80
[2023-08-30 05:49] VITALS: BP 130/80; BMI 34.4
== END 2023-09-24 23:59 ==
LOC: CR 15:45
PROVIDERS: Referring Provider Internal Medicine Cardiovascular Disease; Visit Provider Internal Medicine Cardiovascular Disease
DX: Z95.1 Presence of aortocoronary bypass graft (principal)
CPT/HCPCS: 93798; 97803

== ENCOUNTER → 2023-08-30 | Outpatient (CLI) | payer OTHER, SELFPAY ==
[2023-08-30 05:49] VITALS: BMI 34.4
--- NOTE | 2023-08-30 16:11 | RAD_ITS ---
INDICATION: CP EXAMINATION/TECHNIQUE: X-RAY - XR Chest 2 Views COMPARISON: FINDINGS: LINES/DEVICES: Sternotomy wires are present. LUNGS: No consolidation, edema or effusion. No pneumothorax. MEDIASTINUM AND CARDIOVASCULAR STRUCTURES: Cardiac silhouette not enlarged. Central airways and mediastinal contour are unremarkable. BONES AND SOFT TISSUES: Unremarkable. RAD/Chest PA and Lateral IMPRESSION: No radiographic evidence of acute cardiopulmonary disease. Electronically Signed: Faizan Leslie DO at 16:27 EDT ,
== END | disposition home or self-care (01) ==
LOC: RAD 16:12
PROVIDERS: Referring Provider Physician Assistant Medical; Visit Provider Physician Assistant Medical
DX: R07.9 Chest pain, unspecified (principal)
CPT/HCPCS: 71046

== ENCOUNTER 2023-09-09 06:01 | Emergency (ER) | payer OTHER, SELFPAY ==
[2023-09-09 06:02] VITALS: BP 166/95; PULSE 70; RESP 16; TEMP 36.1; O2SAT 96; BMI 34.0
[2023-09-09 07:02] LABS: Bacteria 0 SEEN /hpf (None Seen); Mucous, Urine 0 SEEN /hpf (<or=2+); Squamous Epithelial Cells - UA 0 SEEN /hpf (0-5); White Blood Cells 0 SEEN /hpf (0-5)
--- NOTE | 2023-09-09 07:09 | EX.ED.DYSGE1 ---
HPI History of Present Illness Chief Complaint: Complaint Informant: patient Narrative Narrative: Patient is a 62-year-old male with past medical history of hypertension hyperlipidemia and coronary artery disease. He states ever since May when he underwent a CABG he then developed difficulty urinating/urinary retention and performs self-catheterization 3-5 times a day. He states that he got up this morning and did a self cath and when he did so there was bright red blood with blood clots present. He states that he is not on a blood thinner nor does he have a history of bleeding disorder. He does admit to taking a baby aspirin daily. He states he has never had blood work with his self catheterizations in the past and this concerned him and therefore he comes in for evaluation. [facility] Medical History Urinary retention ELIZABETH (dyspnea on exertion) History of pulmonary embolus (PE) History of inferior wall myocardial infarction NSVT (nonsustained ventricular tachycardia) History of alcohol abuse Atherosclerosis of coronary artery of eek heart without angina pectoris COVID-19 Hyperlipidemia Mucous cyst of digit of hand Hay fever Hemorrhoids Hypertension Home Medications ?Medication ?Instructions ?Recorded ?Last Taken ?Type aspirin 81 mg chewable tablet 81 mg PO DAILY 06/25/21 05/19/23 History ibuprofen 800 mg tablet 800 mg PO TID PRN pain 03/09/23 Unknown History multivitamin 1 tab PO DAILY 03/09/23 Unknown History rosuvastatin 10 mg tablet 40 mg PO DAILY 06/20/23 Unknown History carvedilol 25 mg tablet 25 mg PO BID #60 tabs 07/26/23 Unknown Rx Allergy/AdvReac Type Severity Reaction Status Date / Time No Known Allergies Allergy Verified 09/09/23 06:13 Family History Mother CVA (cerebral vascular accident) Diabetes Surgical History (Updated 09/09/23 @ 07:[address] Christopher Montes De Oca DO) S/P CABG x 5 History of coronary artery stent placement (~01/2009) Social History Smoking Status: Former smoker how long ago did patient quit [id number] and again in 2014 alcohol intake: current Alcohol type: beer details: weekly substance use type: does not use ROS ROS ED Constitutional Constitutional ED: Denies chills or fever(s) Eyes Eyes: Denies change in vision ENT ENT ED: Denies sore throat Cardiovascular Cardiovascular: Denies chest pain Respiratory/Chest Respiratory/Chest: Denies cough or dyspnea Gastrointestinal Gastrointestinal: Denies abdominal pain, diarrhea, nausea or vomiting Genitourinary Genitourinary ED: Reports hematuria Musculoskeletal Musculoskeletal: Denies back pain Integumentary Denies rash Neurologic Neurologic: Denies headache(s) Hematologic/Lymphatic Hematologic/Lymphatic: Denies easy bleeding or easy bruising EXAM Physical Exam Const Vital Signs: 09/09/23 06:02 Temperature 97 F L Temperature Source Temporal Pulse Rate 70 Respiratory Rate 16 Blood Pressure 166/95 H Blood Pressure Mean 118 Pulse Ox 96 Oxygen Delivery Method Room Air Positive well nourished and well developed General Appearance ED: well developed; Negative for pallor HEENT HEENT Narrative: Normocephalic atraumatic Eyes PERRL and EOMs intact bilaterally General Eye ED: Negative for pale conjunctiva or scleral icterus Neck supple Resp normal respiratory effort and clear to auscultation bilaterally Cardio regular rate and regular rhythm GI normal to inspection, nondistended, normoactive bowel sounds, non-tender, non-distended and no masses GI Narrative: No organomegaly to suggest urinary retention No voluntary guarding or rigidity pulsatile mass or peritoneal signs Auscultation: normoactive bowel sounds Palpation: soft Narrative: No blood or discharge from the urethral meatus no testicular swelling no secondary soft tissue changes to suggest Charline's gangrene Back/Spine no CVA tenderness Extremity normal to inspection Neuro oriented x3, CN's II-XII intact bilaterally and no sensory deficits noted Sensorium / Orientation: alert Motor Exam: strength 5/5 throughout Psych mental status grossly normal Skin no rashes or lesions noted General Skin Exam: Negative for jaundice or pallor MDM MDM MDM Narrative Medical decision making narrative: Patient arrived to the ER mildly hypertensive otherwise with stable vitals. He reported that he performs self-catheterization 5 times a day and that with his morning self cath there was bright red blood and passage of clots. He denies any history of bleeding disorder or blood thinner use and he states he is not have any type of back/flank pain or abdominal pain. Differential diagnosis is for kidney stone versus UTI versus pyelonephritis versus trauma to the prostate from his self cathing procedures. At this time based on stable vitals and physical exam I do not feel there is need for laboratory studies. Most likely diagnosis is prostatic trauma from his self-catheterization. In order to prevent recurrent trauma I do not feel he should perform self catheterizations throughout the day and therefore placed a three-way Isaac catheter. The catheter was irrigated with 2 bags of saline and after irrigation there was clearing of the patient's blood and no return of obstruction. Urine sample also showed blood but no sign of infection. Therefore there is no need for antibiotics. Therefore this time I feel it is more appropriate to keep the catheter in place to allow the prostate to heal and he can follow-up with urology on an outpatient basis History & Record Review Discussion w/independent historian: Patient Lab Data Labs: Laboratory Results - last 24 hr 09/09/23 06:57 Urine Color Brown Urine Clarity Cloudy Urine pH 7.0 Ur Specific Wells 1.015 Urine Protein 100 H Urine Glucose (UA) Normal Urine Ketones 5 H Urine Occult Blood 250 H Urine Nitrite Positive H Urine Bilirubin 1 H Urine Urobilinogen 4 H Ur Leukocyte Esterase 500 H Urine RBC > 100 SEEN Urine WBC 0 SEEN Ur Squamous Epith Cells 0 SEEN Urine Bacteria 0 SEEN Urine Mucus 0 SEEN Discharge Plan Triage Chief Complaint: Complaint ED Provider: Christopher Montes De Oca Dx/Rx/DC Orders Clinical Impression: Hematuria, Urinary retention, Hypertension, S/P CABG x 5 Instructions: Self-Catheterization for Men, ED Hematuria Prescriptions: No Action ibuprofen 800 mg tablet 800 mg PO TID PRN (Reason: pain) multivitamin Tablet 1 tab PO DAILY rosuvastatin 10 mg tablet 40 mg PO DAILY aspirin [Baby Aspirin] 81 mg Tablet,Chewable 81 mg PO DAILY carvedilol 25 mg tablet 25 mg PO BID Qty: 60 11RF Rx Instructions: must administer with a meal/food [facility] [facility] [Primary Care Provider] - Activity Restrictions/Additional Instructions: Your urine sample today shows no sign of bacteria/infection indicating the bleeding was from trauma to the prostate. Leave the Isaac catheter in place for the next 2 to 3 days to allow the prostate to heal. Follow-up with your family doctor/urologist to have the catheter removed and return to the ER should you have any further concerns Print Language: French Disposition Disposition: Home, Self Care
[2023-09-09 07:21] LABS: Color, Urine Brown (Yellow); Glucose, Dipstick Normal (Normal); Ketone-Dipstick 5 mg/dl (Negative); Leukocyte Esterase-Dipstick 500 /ul (Negative); Nitrite-Dipstick Positive (Negative); Occult Blood-Urine 250 /ul (Negative); Protein-Dipstick 100 mg/dl (Negative); Specific Gravity, Urine 1.015 (1.002-1.030); Urine Clarity Cloudy (Clear); Urine Urobilinogen 4 mg/dl (Normal)
[2023-09-09 07:35] LABS: Urine Bilirubin Dipstick 1 mg/dL (Negative)
[2023-09-09 07:46] LABS: Red Blood Cells-Urine > 100 SEEN /hpf (0-5)
[2023-09-09 08:02] VITALS: BP 148/82; PULSE 76; RESP 16; O2SAT 98
[2023-09-09 09:34] VITALS: BP 145/77; PULSE 72; RESP 16; TEMP 36.4; O2SAT 95
== END 2023-09-09 09:35 | disposition home or self-care (01) ==
PROVIDERS: Emergency Provider Emergency Medicine; Visit Provider Emergency Medicine
DX: R31.9 Hematuria, unspecified (principal); R33.9 Retention of urine, unspecified; I10 Essential (primary) hypertension; I25.10 Atherosclerotic heart disease of native coronary artery without angina pectoris; I25.2 Old myocardial infarction; Z87.891 Personal history of nicotine dependence; Z95.1 Presence of aortocoronary bypass graft; Z86.711 Personal history of pulmonary embolism; Z86.16 Personal history of COVID-19; Z95.5 Presence of coronary angioplasty implant and graft
CPT/HCPCS: 81001; 99282; A4216

== ENCOUNTER 2024-03-07 09:27 | Emergency (ER) | payer OTHER, SELFPAY ==
[2024-03-07] VITALS (8 sets, daily range): BP systolic 149–184; BP diastolic 97–109; PULSE 65–72; RESP 15–19; TEMP 36.6; O2SAT 96–99; BMI 33.3
--- NOTE | 2024-03-07 09:40 | EX.ED.DYSGE1 ---
HPI History of Present Illness Chief Complaint: Dizziness [facility] Medical History Urinary retention ELIZABETH (dyspnea on exertion) History of pulmonary embolus (PE) History of inferior wall myocardial infarction NSVT (nonsustained ventricular tachycardia) History of alcohol abuse Atherosclerosis of coronary artery of [place] heart without angina pectoris COVID-19 Hyperlipidemia Mucous cyst of digit of hand Hay fever Hemorrhoids Hypertension Home Medications ?Medication ?Instructions ?Recorded ?Last Taken ?Type aspirin 81 mg chewable tablet 81 mg PO DAILY 06/25/21 05/19/23 History multivitamin 1 tab PO DAILY 03/09/23 Unknown History rosuvastatin 10 mg tablet 40 mg PO DAILY 06/20/23 Unknown History carvedilol 25 mg tablet 25 mg PO BID #60 tabs 07/26/23 Unknown Rx amlodipine 5 mg tablet 5 mg PO DAILY 10/17/23 Unknown History tamsulosin 0.4 mg capsule (Flomax) 0.8 mg PO QHS 10/17/23 Unknown History amlodipine 5 mg tablet 10 mg (2 x 5 mg) PO DAILY 30 days 03/07/24 Unknown Rx #60 tabs ciprofloxacin HCl 500 mg tablet 500 mg PO BID 7 days #14 TABLETS 03/07/24 Unknown Rx furosemide 20 mg tablet (Lasix) 20 mg PO QODAY #7 tabs 03/07/24 Unknown Rx Allergy/AdvReac Type Severity Reaction Status Date / Time adhesive (adhesives) AdvReac Intermediate Rash Verified 03/07/24 09:28 Family History Mother CVA (cerebral vascular accident) Diabetes Surgical History S/P CABG x 5 History of coronary artery stent placement (~01/2009) Social History Smoking Status: Former smoker how long ago did patient quit [id number] and again in 2014 alcohol intake: current Alcohol type: beer details: weekly substance use type: does not use EXAM Physical Exam Const Vital Signs: 03/07/24 09:28 03/07/24 10:28 03/07/24 11:00 Temperature 97.9 F Temperature Source Oral Pulse Rate 65 69 72 Respiratory Rate 18 16 16 Blood Pressure 184/109 H 183/103 H Blood Pressure Mean 134 129 Pulse Ox 99 97 Oxygen Delivery Method Room Air Room Air 03/07/24 12:00 03/07/24 12:15 03/07/24 13:00 Temperature Temperature Source Pulse Rate 66 69 68 Respiratory Rate 15 19 H 16 Blood Pressure 156/97 H Blood Pressure Mean 114 Pulse Ox 96 98 Oxygen Delivery Method 03/07/24 13:26 Temperature 97.9 F Temperature Source Pulse Rate 67 Respiratory Rate 16 Blood Pressure 149/100 H Blood Pressure Mean 116 Pulse Ox 99 Oxygen Delivery Method [facility] [place] Narrative Medical decision making narrative: HISTORY OF PRESENT ILLNESS: 63-year-old male presents with dizziness/lightheadedness actively blood pressure. Notes we checked his blood pressure work is elevated. Notes he not anything is warm did have 2 cups of coffee. Denies chest pain, shortness of breath or leg swelling. REVIEW OF SYSTEMS: Pertinent positives: Lightheadedness, dizziness Pertinent negatives: Headache, chest pain, shortness of breath, leg swelling, decreased urination PHYSICAL EXAM: Nursing triage notes reviewed, Vital signs reviewed Constitutional: please see mdm HENT: MMM Eyes: Pupils equal round and reactive to light, Extraocular muscles intact Neck: No stridor, no JVD, full neck ROM Lungs: Clear to auscultation, No wheezing or rales. No increased work of breathing, no conversational dyspnea, no accessory muscle use, no nasal flaring. No respiratory distress noted Heart: Regular rate and rhythm, No murmurs, No rubs and No gallops, 2+ distal pulses (radial, femoral, posterior tibial) in all extremities Abdomen: Soft, there is no tenderness, rigidity, rebound or guarding, no obvious peritoneal signs, no palpable pulsatile abdominal masses, no auscultated abdominal bruit : No CVAT Extremities: No edema Neuro: Alert and oriented x3, neuro exam at baseline, cranial nerves II through XII are intact. No pain with extraocular muscle movement. There is negative test of skew. 5 of 5 strength in upper and lower extremities in flexion extension. Intact sensation to light touch in upper and lower extremity dermatomes. No truncal or extremity ataxia. No dysdiadochokinesia. Normal gait. 2+ reflexes in upper and lower extremities. No meningeal signs. Negative Babinski. NIH of 0. Skin: No rash or lesions noted MEDICAL DECISION MAKING: Chief Complaint: Dizziness/lightheadedness External records reviewed: Reviewed prior medications, current on amlodipine and carvedilol Factors affecting care: CAD status post CABG, hypertension, hyperlipidemia Social determinants of health: none History obtained from others: none Consults: none [facility] Narrative: Patient was initially hypertensive with a blood pressure 184/109, otherwise afebrile and nontoxic-appearing. Exam without focal cardiopulmonary abnormalities I considered the following differential diagnosis: Endorgan damage from elevated blood pressure, posterior circulation CVA, arrhythmia, anemia, electrolyte disturbance I obtained a broad lab and imaging workup to further elucidate etiology of the patient's complaints ALL IMAGES (IF OBTAINED) HAVE BEEN PERSONALLY REVIEWED AND INTERPRETED BY MYSELF. I have personally reviewed the patient's chest x-ray. Chest x-ray is unremarkable for pulmonary edema, pneumothorax, pneumonia or focal cardiopulmonary abnormality. I did note cardiomegaly new from prior study. Radiologist agreed my interpretation High-sensitivity troponin is negative, no evidence of myocardial ischemia CBC with no leukocytosis, no anemia or thrombocytopenia BMP without evidence of significant electrolyte abnormalities, no anion gap, no acute kidney injury. CT a scan of the head, CTA of the head and neck showed no evidence of ICH, mass, large vessel occlusion or dissection Patient was ambulated here given cardiomegaly and elevated BNP to ascertain if he had any signs of exertional hypoxia. Patient was not hypoxic with ambulating and maintaining saturations in the upper 90s. He had no stigmata of heart failure on exam. Given cardiomegaly and elevated BNP will start him on 20 mg of Lasix orally. This will also help with his elevated blood pressure. Will follow with his primary care physician for outpatient echocardiogram, lab reevaluation and potential for continuing Lasix. On reevaluation patient's blood pressure improved to 156/97 after oral. While I considered admitting the patient he had no signs of florid heart failure, hypoxia, he did not require IV diuretics at this time. He is appropriate for discharge home with oral Lasix and close PCP follow-up. The patient and/or family, caregivers express understanding. The patient and/or family, caregivers agrees with the plan. Shared decision making: I will have a discussion with the patient and or visitors regarding risk/benefits of further testing or admission. They will be made aware of of the risk/benefits inherent in this decision they will be given the opportunity to voice understanding. Total critical care time today provided was at least 0 minutes. This excludes separately billable procedures. Critical care time (if documented) is secondary to the patient having high probability of clinically significant/life threatening deterioration in the patient's condition which required my urgent intervention. Impression: 1. Elevated blood pressure 2. History of hypertension 3. Dizziness Dispo: discharge This note was generated with [employer] dictation software. It may contain incorrect words, spelling, and punctuation that were not noted in review of the chart prior to signing. Lab Data Labs: Laboratory Results - last 24 hr 03/07/24 03/07/24 03/07/24 10:10 10:39 12:24 WBC 6.2 RBC 4.70 Hgb 13.4 Hct 42.0 MCV 89.4 MCH 28.5 MCHC 31.9 L RDW Std Deviation 41.9 RDW Coeff of Tena 13.0 Plt Count 213 MPV 9.3 Sodium 136 Potassium 4.7 Chloride 103 Carbon Dioxide 29.0 Anion Gap 4 L BUN 18 Creatinine 0.84 Estim Creat Clear Calc 102.94 Est GFR (MDRD) Af Amer 118 Est GFR (MDRD) Non-Af 97 BUN/Creatinine Ratio 21.4 H Glucose 98 Calcium 9.1 Troponin I High Sens 4 5 B-Natriuretic Peptide 196.0 H Urine Color Straw Urine Clarity Cloudy Urine pH 7.0 Ur Specific [place] 1.010 Urine Protein 30 H Urine Glucose (UA) Normal Urine Ketones Negative Urine Occult Blood 25 H Urine Nitrite Negative Urine Bilirubin Negative Urine Urobilinogen Normal Ur Leukocyte Esterase 500 H Urine RBC 0-5 SEEN Urine WBC >100 SEEN Ur Squamous Epith Cells 0-5 SEEN Urine Bacteria RARE Urine Mucus 0 SEEN Radiography Diagnostic Testing: Clinical Impression(s) from Imaging Studies Head/Neck CTA 03/07/24 09:55 IMPRESSION: Atherosclerosis with no associated significant stenosis or occlusion. Electronically Signed: Dominique Pollard MD at 11:56 EST , Chest X-Ray 03/07/24 10:55 IMPRESSION: Cardiomegaly. Electronically Signed: Dominique Pollard MD at 11:05 EST , Discharge Plan Triage Chief Complaint: Dizziness ED Provider: Daniel Coffey Dx/Rx/DC Orders Clinical Impression: Hypertension Instructions: ED High Blood Pressure Hypertension Prescriptions: New amlodipine 5 mg tablet 10 mg PO DAILY 30 Days Qty: 60 0RF furosemide [Lasix] 20 mg tablet 20 mg PO QODAY Qty: 7 0RF ciprofloxacin HCl 500 mg tablet 500 mg PO BID 7 Days Qty: 14 0RF No Action multivitamin Tablet 1 tab PO DAILY rosuvastatin 10 mg tablet 40 mg PO DAILY tamsulosin [Flomax] 0.4 mg capsule 0.8 mg PO QHS amlodipine 5 mg tablet 5 mg PO DAILY aspirin [Baby Aspirin] 81 mg Tablet,Chewable 81 mg PO DAILY carvedilol 25 mg tablet 25 mg PO BID Qty: 60 11RF Rx Instructions: must administer with a meal/food Primary Care Provider: [facility],[place] Referrals: Xavier Dotson MD [Med Staff - [employer]] - Activity Restrictions/Additional Instructions: Thank you for trusting us with your care today! Your blood pressure is elevated today but improved after receiving your oral dose of blood pressure medication. Please increase Norvasc to 10 mg/day. Please continue taking carvedilol 25 mg twice a day. Your labs and images otherwise were reassuring specifically no signs of damage to your heart or signs of damage to your brain from elevated blood pressure. You are prescribed oral Lasix which is a water pill which will make you urinate more in order to decrease your blood pressure further. Please take this for the next 7 days. Your urine showed signs inflammation. Will treat with oral antibiotics. Prescribed ciprofloxacin. Please take this for neck 7 days as well. Please follow with your primary care physician for further outpatient blood pressure management as well as lab testing of your kidneys and electrolytes. I recommend getting an echocardiogram as an outpatient to further assess your heart function. Please take Tylenol (2 pills, 650 mg), ibuprofen (2 pills, 400 mg) every 6 hours as needed for pain and fever control. Please return to the emergency department if your symptoms change or worsen. Please follow with your primary care physician for further outpatient evaluation and management. Print Language: Amharic Disposition Disposition: Home, Self Care Discharge Date/Time: 03/07/24 13:29
--- NOTE | 2024-03-07 09:55 | EKG12_ITS ---
Test Reason : DIZZY Blood Pressure : */* mmHG Vent. Rate : 69 BPM Atrial Rate : 69 BPM P-R Int : 188 ms QRS Dur : 82 ms QT Int : 410 ms P-R-T Axes : * -3 -49 degrees QTcB Int : 439 ms Normal sinus rhythm T wave abnormality, consider inferior ischemia Abnormal ECG Confirmed by LINCOLN WEIR, CURT ([id number]), associate entertainment editor LARA CHAN ([id number]) on 03/13/2024 1:23:38 P M Referred By: Confirmed By: CURT STARK MD
--- NOTE | 2024-03-07 09:55 | CT_ITS ---
INDICATION: dizziness, elevated BP EXAMINATION: CT BRAIN WITHOUT CONTRAST, CTA HEAD, AND CTA NECK TECHNIQUE: Noncontrast axial images were obtained of the brain. Subsequently, routine carotid CT angiogram protocol was performed without and with IV contrast. In addition, images were obtained of the [place]. NASCET criteria using the distal ICAs for comparison were used for evaluation of stenoses. 3D reconstructions were reviewed. The protocol utilizes one or more of the following dose reduction techniques: automated exposure control, adjustment of mA and/or kV according to patient size,and/or use of iterative reconstruction technique. IV Contrast dosage and agent: 100 cc of [id number] COMPARISON: June 25, 2021 FINDINGS: --CT BRAIN WITHOUT CONTRAST: BRAIN PARENCHYMA: No intra- or extra-axial hemorrhage. No evidence of acute infarct. No intracranial mass or mass effect. There is preservation of the paez/white matter interface. Posterior fossa structures are unremarkable. CSF SPACES: Appropriate for age. No hydrocephalus. Basal cisterns are patent. CALVARIUM, SKULL BASE, PARANASAL SINUSES AND MASTOID AIR CELLS: Clear. No discrete lytic or blastic abnormalities. ASPECTS Score for Acute Strokes: 10 --CTA NECK: AORTIC ARCH AND BRANCHES: Normal anatomy, patent. RIGHT CCA: No occlusion, significant stenosis or dissection. RIGHT ICA: No occlusion, significant stenosis or dissection. LEFT CCA: No occlusion, significant stenosis or dissection. LEFT ICA: There are peripheral calcifications. No occlusion, significant stenosis or dissection. RIGHT VERTEBRAL ARTERY: No occlusion, significant stenosis or dissection. LEFT VERTEBRAL ARTERY: No occlusion, significant stenosis or dissection. NECK SOFT TISSUES: Unremarkable. --CTA HEAD: --Anterior circulation: ICAs: There are bilateral peripheral calcifications No significant stenosis at the intracranial/visualized segments. ACAs: No significant stenosis at the visualized segments. ACOM: Present. MCAs: No significant stenosis at the visualized segments. --Posterior circulation: PCOMs: Within normal limits demonstrator sewing techniques: No significant stenosis at the visualized segments. BASILAR ARTERY: No significant stenosis. VERTEBRAL ARTERIES: No significant stenosis at the intradural/visualized segments. No evidence of intracranial aneurysm or vascular malformation. CT/CTA Head AND Neck W/ Contrast IMPRESSION: Atherosclerosis with no associated significant stenosis or occlusion. Electronically Signed: Dominique Pollard MD at 11:56 EST ,
[2024-03-07 10:17] LABS: Hemoglobin 13.4 g/dL (13.0-16.5); Mean Corp Hgb Conc 31.9 g/dL (32-36); Mean Corpuscular Hgb 28.5 pg (27.0-32.0); Mean Corpuscular Volume 89.4 fL (80-94); Mean Platelet Vol. 9.3 fl (6.2-12.0); Platelet Count 213 K/mm3 (150-450); RBC Distribution Width SD 41.9 fl (35.1-43.9); White Blood Count 6.2 K/mm3 (4.4-11.0)
[2024-03-07 10:37] LABS: Anion Gap 4 (5-15); BUN 18 mg/dL (7-18); BUN/Creat Ratio 21.4 RATIO (10-20); Calcium,Total 9.1 mg/dL (8.5-10.1); Chloride 103 mmol/L (98-107); Creatinine, Serum 0.84 mg/dL (0.70-1.30); EST Glomerular Filtration Rate 97 mL/min (>60); Est Glom Filt Rate - Afr Amer 118 mL/min (>60); Estimated Creatinine Clearance 102.94 ml/min; Glucose 98 mg/dL (74-106); Potassium 4.7 mmol/L (3.5-5.1); Sodium Level 136 mmol/L (136-145); Troponin-I HS (w/2H Reflex) 4 pg/mL (3.0-78.0)
[2024-03-07] MEDS: amLODIPine 10 MG Tablet PO (10:45)
--- NOTE | 2024-03-07 10:55 | RAD_ITS ---
INDICATION: Shortness of breath EXAMINATION/TECHNIQUE: X-RAY - XR Chest 1 View COMPARISON: August 30, 2023 FINDINGS: LINES/DEVICES: None. LUNGS: No consolidation, edema or effusion. No pneumothorax. MEDIASTINUM AND CARDIOVASCULAR STRUCTURES: There is cardiomegaly. There are sternotomy wires in place. Central airways and mediastinal contour are unremarkable. BONES AND SOFT TISSUES: Unremarkable. RAD/Chest 1 View (Portable) IMPRESSION: Cardiomegaly. Electronically Signed: Dominique Pollard MD at 11:05 EST ,
[2024-03-07 12:14] LABS: Reflex Troponin-HS? (from REC) Y
[2024-03-07 12:42] LABS: Mucous, Urine 0 SEEN /hpf (<or=2+)
[2024-03-07 12:43] LABS: Color, Urine Straw (Yellow); Glucose, Dipstick Normal (Normal); Ketone-Dipstick Negative (Negative); Leukocyte Esterase-Dipstick 500 /ul (Negative); Nitrite-Dipstick Negative (Negative); Occult Blood-Urine 25 /ul (Negative); Protein-Dipstick 30 mg/dl (Negative); Urine Bilirubin Dipstick Negative (Negative); Urine Clarity Cloudy (Clear); Urine Urobilinogen Normal (Normal)
[2024-03-07 12:47] LABS: Troponin-I HS 5 pg/mL (3.0-78.0)
[2024-03-07 12:51] LABS: Bacteria RARE /hpf (None Seen); Red Blood Cells-Urine 0-5 SEEN /hpf (0-5); Squamous Epithelial Cells - UA 0-5 SEEN /hpf (0-5); White Blood Cells >100 SEEN /hpf (0-5)
== END 2024-03-07 13:29 | disposition home or self-care (01) ==
PROVIDERS: Emergency Provider Emergency Medicine; Visit Provider Emergency Medicine
DX: I11.9 Hypertensive heart disease without heart failure (principal); E78.5 Hyperlipidemia, unspecified; I25.10 Atherosclerotic heart disease of native coronary artery without angina pectoris; I25.2 Old myocardial infarction; Z95.1 Presence of aortocoronary bypass graft; Z86.711 Personal history of pulmonary embolism; Z79.82 Long term (current) use of aspirin; Z79.899 Other long term (current) drug therapy; Z87.891 Personal history of nicotine dependence
CPT/HCPCS: 70496; 70498; 71045; 80048; 81001; 83880; 84484; 85027; 93005; 99285; Q9967

== ENCOUNTER 2024-11-10 16:25 | Emergency (ER) | payer OTHER, SELFPAY ==
[2024-11-10 16:26] VITALS: BP 129/88; PULSE 76; RESP 14; TEMP 36.3; O2SAT 98; BMI 36.6
--- NOTE | 2024-11-10 16:42 | EKG12_ITS ---
Test Reason : DIZZINESS Blood Pressure : */* mmHG Vent. Rate : 71 BPM Atrial Rate : 71 BPM P-R Int : 174 ms QRS Dur : 88 ms QT Int : 400 ms P-R-T Axes : -15 -1 -67 degrees QTcB Int : 434 ms Normal sinus rhythm T wave abnormality, consider inferior ischemia Abnormal ECG Confirmed by LUIS FERNANDO WEIR, LYDIA ([id number]), editor in chief LARA CHAN ([id number]) on 11/12/2024 6:11:30 AM Referred By: YANETH Confirmed By: LYDIA GOULD MD
[2024-11-10 17:02] LABS: Hematocrit 41.0 % (40-54); Hemoglobin 13.5 g/dL (13.0-16.5); Immature Granulocytes Count 0.020 X10^3/uL (0.0-0.0); Mean Corp Hgb Conc 32.9 g/dL (32-36); Mean Corpuscular Volume 88.7 fL (80-94); Mean Platelet Vol. 9.1 fl (6.2-12.0); NRBC Flagged by Analyzer 0 % (0-5); Platelet Count 198 K/mm3 (150-450); RBC Distribution Width CV 13.2 % (11.6-14.6); RBC Distribution Width SD 42.6 fl (35.1-43.9); Red Blood Count 4.62 M/mm3 (4.6-6.2); White Blood Count 5.4 K/mm3 (4.4-11.0)
[2024-11-10] MEDS: 0.9% Normal Saline (1000mL) 1,000 ML 1000 ML IV (17:05)
--- OUTSIDE RECORDS SUMMARY | 2024-11-10 17:19 | XMS RPT_ITS | CCD ---
Author Organization [facility] Care Team Providers Care Transportation Mechanic Name Role Phone [place] Primary Care Provider [facility], [place] Referring Provider Unavailable MIESHA Farrell Attending Provider Dr. Meek Gaines Attending Provider [phone] Dr. Meek Gaines Referring Provider [phone] Dr. Meek Gaines Other Provider Crissy Engle DO Primary Care Provider GISELLA HUANG MD Attending Unavailable PHYSICIAN, NOT RECORDED Primary Care Unavaila ble PHYSICIAN, NONE Attending Unavailable PHYSICIAN, NONE Primary Care Unavailable [facility] [facility] [place] Referring Provider Unavailable MIESHA Farrell Attending Provider Dr. Meek Gaines Attending Provider [phone] Dr. Meek Gaines Referring Provider [phone] Dr. Meek Gaines Other Provider [facility], [place] Primary Care Provider [facility] Referring Provider Unavailable MIESHA Farrell Attending Provider SAL, GISELLA Attending Unavailable CRISSY ENGLE Primary Care Unavailable CRISSY ENGLE Primary Care Unavailable DARION LOPES Attending Unavailable CRISSY ENGLE Primary Care Unavailable DARION LOPES Attending Unavailable CRISSY ENGLE Primary Care Unavailable DARION LOPES Attending Unavailable CRISSY ENGLE Primary Care Unavailable AZIKEN, GISELLA Referring Unavailable SAL, GISELLA Attending Unavailable AZIKEN, GISELLA Admitting Unavailable JOSÉ MIGUEL HORNER [place] [facility] [place] Referring Provider Unavailable [facility] Referring Unavailable Michelle Farrell Attending [facility]avail [facility] Unavailable Christopher Montes De Oca Attending Unavailable EderMeek chandra Att[facility] Eder, [employer] Referring Unavailable EderMeek Attending [facility] Unavailable Eder, Meek Referring Unavailable Michelle Farrell Attending Unavail able [facility]available Michelle Farrell Attending [place] Un[place] Michelle Farrell Referring Unavail able Michelle Farrell Attending Unavail able Daniel Coffey Attending [place] Unavailable Allergies Allergy Classification Reported Allergen(s) Allergy Type Date of Onset Reaction(s) Facility (2 sources) Adhesive agent; Translations: [adhesive] Propensity to adverse reactions 08-23-2024 [facility] Medications Current Medications Medication Drug Class(es) Dates Sig (Normalized) Sig (Original) acetaminophen 500 mg oral tablet (15 sources) Start: 06-06-2023 End: 06-06-2023 take 2 tablets by mouth every eight hours acetaminophen (Tylenol) 500 MG tablet Take 2 tablets (1,000 mg) by mouth in the morning and 2 tablets (1,000 mg) at noon and 2 tablets (1,000 mg) before bedtime. 0 06/06/2023 Active Start: 06-01-2023 End: 06-06-2023 take 1 tablet by mouth every eight hours 1,000 mg, Oral, Every 8 hours, First dose on Clara 06/01/23 at 1400, Recovery [facility] On Unit carboxymethylcellulose sodium 2.5 mg/ml ophthalmic solution (1 source) Start: 08-23-2024 Carboxymethylcellulose Sodium 0.25 % drops Active 1 NMA OPHTHALMIC THREE TIMES A DAY August 23, 2024 12:00am carvedilol 25 mg oral tablet (20 sources) alpha-Adrener gic Constance, beta-Adrenerg ic Constance Start: 07-26-2023 End: 05-06-2024 Carvedilol 25 mg tablet Active 25 mg PO .COMPLEX 180 May 06, 2024 2:59pm 25 mg orally twice daily: Fax to [place] at .; must administer with a meal/food Start: 06-04-2023 End: 09-04-2023 take 1 tablet by mouth twice daily Carvedilol 12.5 mg tablet Discontinued 12.5 mg PO TWICE A DAY June 20, 2023 11:03am July 26, 2023 4:07pm Start: 06-03-2023 End: 06-04-2023 carvedilol (Coreg) tablet 3. 125 mg Start: 05-31-2023 End: 06-01-2023 6.25 mg, Oral, 2 times daily with meals, First dose on Mon05/31/23 at 1700, Hold for SBP less than 105 and/or MAPs less than 65 and/or HR less than 60 Start: 03-09-2023 End: 06-20-2023 take 6.25 mg by mouth twice daily Carvedilol 12.5 mg tablet Discontinued 6.25 mg PO TWICE A DAY March 09, 2023 10:33am June 20, 2023 11:06am Start: 09-18-2018 End: 03-09-2023 Carvedilol 12.5 mg tablet Discontinued 0.5 {tbl} PO TWICE A DAY 90 September 18, 2018 12:00am March 09, 2023 10:40am Start: 09-18-2018 End: 03-09-2023 take 0.5 tablet by mouth twice daily Carvedilol Discontinued 0.5 TABLET PO TWICE A DAY 90 September 18, 2018 12:00am March 09, 2023 10:40am Start: 09-18-2018 End: 06-20-2023 take 6.25 mg by mouth twice daily Carvedilol Discontinued 6.25 MG PO TWICE A DAY 90 March 09, 2023 10:33am June 20, 2023 11:06am Start: 09-20-2013 End: 10-02-2017 take 1 tablet by mouth twice daily Carvedilol 6.25 MG tablet Discontinued 6.25 mg PO TWICE A DAY September 20, 2013 12:00am October 02, 2017 9:38am magnesium oxide 250 mg oral tablet (1 source) Start: 08-23-2024 take 1 tablet by mouth once daily Magnesium Oxide 250 mg magnesium tablet Active 250 mg PO daily August 23, 2024 12:00am meloxicam 15 mg oral tablet (1 source) Nonsteroidal Anti-inflammatory Drug Start: 08-23-2024 take 1 tablet by mouth once daily Meloxicam 15 mg tablet Active 15 mg PO daily August 23, 2024 12:00am Multiple Vitamin (multivitamin) capsule (13 sources) take 1 capsule by mouth once daily Multiple Vitamin (multivitamin) capsule Take 1 capsule by mouth daily. 0 Active take 1 capsule by mouth once max ly Multiple Vitamin (multivitamin) capsule Take 1 capsule by mouth daily. 0 Suspended Multivitamin preparation (6 sources) Start: 03-09-2023 take 1 tablet by mouth once daily Multivitamin Active 1 TABLET PO DAILY March 09, 2023 1:00am Start: 03-09-2023 take 1 tablet by maxwell th once daily Multivitamin Active 1 TABLET PO DAILY March 09, 2023 12:00am Multivitamin tablet (1 source) Start: 03-09-2023 Multivitamin t ablet Active 1 {tbl} PO DAILY March 09, 2023 1:00am oxyCODONE hydrochloride 5 mg oral tablet (5 sources) Opioid Agonist Start: 06-06-2023 End: 06-13-2023 take 1 tablet by mouth every six hours as needed for pain oxyCODONE (Roxicodone) 5 MG immediate release tablet Indications: S/P CABG (coronary artery bypass graft) Take 1 tablet (5 mg) by mouth every 6 hours as needed for severe pain (7-10) for up to 7 days. 28 tablet 0 06/06/2023 06/13/2023 Active Start: 06-01-2023 End: 06-06-2023 take 1 tablet by mouth every six hours as needed for pain oxyCODONE (Roxicodone) immediate release tablet 5 mg rosuvastatin calcium 40 mg oral tablet (20 sources) HMG-CoA Reductase Inhibitor Start: 08-23-2024 take 1 tablet by mouth once daily Rosuvastatin 40 mg tablet Active 40 mg PO daily August 23, 2024 12:00am Start: 06-20-2023 End: 08-23-2024 take 4 tablets by mouth once daily Rosuvastatin 10 mg tablet Discontinued 40 mg PO DAILY June 20, 2023 11:06am August 23, 2024 8:20am Start: 06-20-2023 take 40 mg by mouth once daily Rosuvastatin Active 40 MG PO DAILY June 20, 2023 11:06am Start: 06-06-2023 End: 09-04-2023 take 1 tablet by mouth once daily rosuvastatin (Crestor) 40 MG tablet Take 1 tablet (40 mg) by mouth daily. 30 tablet 2 06/06/2023 09/04/2023 Active Start: 06-02-2023 End: 06-06-2023 take 40 mg by mouth once daily 40 mg, Oral, Daily, Fir st dose (after last reorder) on Mon06/02/23 at 2100 Start: 05-31-2023 End: 06-01-2023 take 40 mg by mouth once daily 40 mg, Oral, Daily, Fir st dose on Mon05/31/23 at 1500 Start: 03-09-2023 End: 06-20-2023 take 1 tablet by mouth once daily Rosuvastatin 10 mg tablet Discontinued 10 mg PO DAILY March 09, 2023 1:00am June 20, 2023 11:06am tamsulosin hydrochloride 0.4 mg oral capsule (19 sources) alpha-Adrenergic Constance Start: 10-17-2023 take 2 capsules by mouth at bedtime Tamsulosin (Flomax) 0.4 mg capsule Active 0.8 mg PO AT BEDTIME October 17, 2023 12:00am Start: 06-20-2023 End: 07-24-2023 take 2 capsules by mouth at bedtime Tamsulosin 0.4 mg capsule Discontinued 0.8 mg PO AT BEDTIME June 20, 2023 12:00am July 24, 2023 1:05pm Start: 06-20-2023 End: 07-24-2023 take 0.8 mg by mouth at bedtime Tamsulosin Discontinue d 0.8 MG PO AT BEDTIME June 20, 2023 12:00am July 24, 2023 1:05pm Start: 06-07-2023 End: 08-06-2023 take 1 capsule by mouth once daily tamsulosin (Flomax) 0.4 MG 24 hr capsule Take 1 capsule (0.4 mg) by mouth daily. 30 capsule 1 06/07/2023 08/06/2023 Active Start: 06-04-2023 End: 06-06-2023 tamsulosin (Flomax) 24 hr ca psule 0.4 mg Completed/Discontinued Medications Medication Drug Class(es) Dates Sig (Normalized) Sig (Original) 20 ml albumin human, long-term 250 mg/ml injection (2 sources) Human Serum Albumin Start: 06-01-2023 End: 06-02-2023 25 g, IntraVENous, at 60 mL/hr, As needed, fluid bolus challenge PRN: PAD below goal (18) and/or Low BP (less than 90 SBP and/or less than 60 MAP) and/or Low urine output (less than 30ml/hr) per hemodynamic goals, Starting on Clara 06/01/23 at 1328, For 2 doses, Phase II/On Unit, To be given in conjunction with PRN 250ml Lactate Ringer Bolus Use if hgb greater than 7.5 and PAD below goal (18) and/or Low BP (less than 90 SBP and/or less than 60 MAP) and/or Low urine output (less than 30ml/hr) per hemodynamic goals If hemodynamic goals unattained, proceed to second fluid bolus challenge If hgb less than 7.5 notify surgeon for orders. albuterol 0.833 mg/ml / ipratropium bromide 0.167 mg/ml inhalation solution (2 sources) Anticholinergic, beta2-Adrenergic Agonist Start: 06-01-2023 End: 06-06-2023 3 mL, Nebulization, 3 times daily PRN, wheezing, shortness of breath, Starting on Clara 06/01/23 at 1328, Recovery [facility] On Unit amLODIPine 5 mg oral tablet (15 sources) Dihydropyridine Calcium Channel Constance Start: 03-07-2024 End: 08-23-2024 take 2 tablets by mouth once daily Amlodipine 5 mg tablet Discontinued 10 mg PO DAILY 60 March 07, 2024 1:00am August 23, 2024 8:19am Start: 10-17-2023 take 1 tablet by maxwell th once daily Amlodipine 5 mg tablet Active 5 mg PO DAILY October 17, 2023 12:00am Start: 06-07-2023 End: 07-07-2023 take 1 tablet by mouth once daily amLODIPine (Norvasc) 2.5 MG tablet Take 1 tablet (2.5 mg) by mouth daily. 30 tablet 0 06/07/2023 Active Start: 06-02-2023 End: 06-06-2023 amLODIPine (Norvasc) tablet 2.5 mg Apple Cider Vinegar (7 sources) Start: 03-09-2023 End: 03-09-2023 apple cider vinegar Disconti nued 1 NMA PO TWICE A DAY March 09, 2023 1:00am March 09, 2023 10:52am Start: 03-09-2023 End: 03-09-2023 take 1 capsule by mouth twice daily apple cider vinegar Discontinued 1 CAP PO TWICE A DAY March 09, 2023 1:00am March 09, 2023 10:52am Start: 03-09-2023 End: 03-09-2023 take 1 capsule by mouth twice daily apple cider vinegar Discontinued 1 CAP PO TWICE A DAY March 09, 2023 12:00am March 09, 2023 9:52am ascorbic acid 1000 mg oral tablet (17 sources) Vitamin C Start: 03-09-2023 End: 03-09-2023 take 1 g by mouth twice daily Ascorbic Acid (Vitamin C) 1,000 mg tablet Discontinued 1 g PO TWICE A DAY March 09, 2023 1:00am March 09, 2023 10:52am Start: 03-09-2023 End: 03-09-2023 take 1 g by mouth twice daily Ascorbic Acid (Vitamin C ) Discontinued 1 GM PO TWICE A DAY March 09, 2023 1:00am March 09, 2023 10:52am Start: 03-09-2023 End: 03-09-2023 take 1 g by mouth twice daily Ascorbic Acid (Vitamin C ) Discontinued 1 GM PO TWICE A DAY March 09, 2023 12:00am March 09, 2023 9:52am Start: 09-20-2013 End: 10-02-2017 take 4 tablets by mouth once daily Ascorbic Acid (Vitamin C) 500 MG tablet Discontinued 2000 mg PO DAILY@0800 September 20, 2013 12:00am October 02, 2017 9:38am Start: 09-20-2013 End: 10-02-2017 take 2000 mg by mouth once daily Ascorbic Acid (Vitamin C) Discontinued 2000 MG PO DAILY@0800 September 20, 2013 12:00am October 02, 2017 9:38am aspirin 81 mg delayed release oral tablet (20 sources) Platelet Aggregation Inhibitor, Nonsteroidal Anti-inflammatory Drug Start: 06-02-2023 End: 06-06-2023 take 81 mg by mouth once daily 81 mg, Oral, Daily, First dose on Mon06/02/23 at 0900, Do not crush, chew, or split. Start: 06-25-2021 take 1 tablet by maxwell th once daily Aspirin (Baby Aspirin) 81 mg Tablet,Chewable Active 81 mg PO DAILY June 25, 2021 12:00am Start: 09-20-2013 End: 10-02-2017 Aspirin 325 MG tablet Discon tinued 81 mg PO DAILY September 20, 2013 12:00am October 02, 2017 9:38am Start: 09-20-2013 End: 10-02-2017 take 81 mg by mouth once daily Aspirin Discontinued 81 MG PO DAILY September 20, 2013 12:00am October 02, 2017 9:38am calcium chloride 0.0014 meq/ml / potassium chloride 0.004 meq/ml / sodium chloride 0.103 meq/ml / sodium lactate 0.028 meq/ml injectable solution (2 sources) Start: 06-01-2023 End: 06-02-2023 250 mL, IntraVENous, at 124 mL/hr, Administer over 121 Minutes, Continuous PRN, fluid bolus challenge: lactated ringers bolus, Starting on Clara 06/01/23 at 1328, For 2 doses, Phase II/On Unit, To be given in conjunction with PRN 25gm Albumin order Use if hgb greater than 7.5 and PAD below goal (18) and/or Low BP (less than 90 SBP and/or less than 60 MAP) and/or Low urine output (less than 30ml/hr) per hemodynamic goals If hemodynamic goals unattained, proceed to second fluid bolus challenge If hgb less than 7.5 notify surgeon for orders. 100 ml calcium gluconate 20 mg/ml injection (2 sources) Start: 06-01-2023 End: 06-06-2023 2,000 mg, IntraVENous, at 50 mL/hr, Administer over 2 Hours, PRN, ionized calcium less than 4.3, Starting on Clara 06/01/23 at 1328, Recovery & On Unit, Give 2000 mg for ionized calcium less than 4.3 premix bag ceFAZolin 2000 mg injection (2 sources) Cephalosporin Antibacterial Start: 06-01-2023 End: 06-03-2023 take 2000 mg intravenously every eight hours 2,000 mg, IntraVENous, Administer over 30 Minutes, Every 8 hours, First dose on Clara 06/01/23 at 2000, For 5 doses, Phase II/On Unit, premix bag, Suspected Indication (Select all that apply): Surgical Prophylaxis cephalexin 500 mg oral capsule (18 sources) Cephalosporin Antibacterial Start: 07-11-2023 End: 07-24-2023 take 1 capsule by mouth three times daily Cephalexin 500 mg capsule Discontinued 500 mg PO THREE TIMES A DAY 30 July 17, 2023 8:15am July 26, 2023 12:00am July 24, 2023 1:05pm Start: 09-28-2017 End: 09-18-2018 take 1 capsule by mouth every twelve hours Cephalexin 500 MG capsule Discontinued 500 mg PO EVERY 12 HOURS September 28, 2017 12:00am September 18, 2018 11:25am chlorhexidine gluconate 1.2 mg/ml mouthwash (10 sources) Start: 06-01-2023 End: 06-05-2023 take 15 mL by mouth twice daily 15 mL, Mouth/Throat, 2 times daily, First dose on Clara 06/01/23 at 1330, For 7 days, Phase II/On Unit, Rinse and spit. Do not swallow. Start: 05-31-2023 End: 06-01-2023 chlorhexidine (Hibiclens) 4 % liquid Start: 05-31-2023 End: 06-01-2023 chlorhexidine (Peridex) 0.12 % solution 15 mL cholecalciferol 0.025 mg oral tablet (20 sources) Vitamin D Start: 03-09-2023 End: 06-20-2023 take 1 tablet by mouth once daily Cholecalciferol (Vitamin D3) 25 mcg (1,000 unit) tablet Discontinued 25 ug PO DAILY March 09, 2023 1:00am June 20, 2023 11:03am take 1 capsule by mouth once max ly cholecalciferol 25 MCG (1000 UT) capsule Take 25 mcg by mouth daily. 0 Active cholecalciferol 9.52 unt/ml / glucose 357 mg/ml oral gel (2 sources) Vitamin D Start: 06-01-2023 End: 06-06-2023 15 g, Oral, As needed, low blood sugar, Starting on Clara 06/01/23 at 1328, Recovery & On Unit, If blood glucose less than 50 mg/dL and patient ALERT and NOT NPO, give 2 tubes glucose gel. If blood glucose less than 70 mg/dL and patient ALERT and NOT NPO, give 1 tube glucose gel. Repeat blood glucose in 15 minutes. If blood glucose is less than 70 mg/dL, repeat treatment and recheck blood glucose in 15 minutes x2 and notify provider. chondroitin sulfates 200 mg / glucosamine hydrochloride 250 mg oral tablet (7 sources) Start: 03-09-2023 End: 06-20-2023 Glucosamine-Chondr oitin (Osteo Bi-Flex) 250-200 mg tablet Discontinued 1 {tbl} PO TWICE A DAY March 09, 2023 1:00am June 20, 2023 11:04am ciprofloxacin 500 mg oral tablet (11 sources) Quinolone Antimicrobial Start: 03-07-2024 End: 08-23-2024 take 1 tablet by mouth twice daily Ciprofloxacin Hcl 500 mg tablet Discontinued 500 mg PO TWICE A DAY 07 10March 07, 2024 1:00am August 23, 2024 8:22am Start: 05-29-2016 End: 09-18-2018 take 1 tablet by mouth twice daily Ciprofloxacin Hcl 500 MG tablet Discontinued 500 mg PO TWICE A DAY May 29, 2016 1:00am September 18, 2018 11:25am 100 ml dexmedetomidine 0.004 mg/ml injection (2 sources) Central alpha-2 Adrenergic Agonist Start: 06-01-2023 End: 06-02-2023 dexmedeTOMIDine in NS (Precedex) 400 mcg in 100 mL (4 mcg/mL) infusion docusate sodium 50 mg / sennosides, long-term 8.6 mg oral tablet (2 sources) Start: 06-01-2023 End: 06-06-2023 take 2 tablets by mouth once daily for constipation 2 tablet, Oral, Nightly, First dose on Clara 06/01/23 at 2100, Recovery & On Unit, Bowel Regimen - for prevention of constipation. echinacea (7 sources) Start: 03-09-2023 End: 03-09-2023 echinacea Discontinued 1 {tbl} PO TWICE A DAY March 09, 2023 1:00am March 09, 2023 10:51am Start: 03-09-2023 End: 03-09-2023 take 1 tablet by mouth twice daily echinacea Discontinued 1 TABLET PO TWICE A DAY March 09, 2023 1:00am March 09, 2023 10:51am Start: 03-09-2023 End: 03-09-2023 take 1 tablet by mouth twice daily echinacea Discontinued 1 TABLET PO TWICE A DAY March 09, 2023 12:00am March 09, 2023 9:51am Echinacea purpurea extract (10 sources) Start: 09-20-2013 End: 09-18-2018 take 750 mg by mouth once daily Echinacea Purpurea Extract Discontinued 750 MG PO DAILY September 20, 2013 11:50pm September 18, 2018 11:25am Start: 09-20-2013 End: 09-18-2018 take 750 mg by mouth once daily Echinacea Purpurea Extract Discontinued 750 mg PO DAILY September 20, 2013 12:00am September 18, 2018 11:25am Start: 09-20-2013 End: 09-18-2018 take 750 mg by mouth once daily Echinacea Purpurea Extract Discontinued 750 MG PO DAILY September 20, 2013 12:00am September 18, 2018 11:25am Start: 09-20-2013 End: 09-18-2018 take 750 mg by mouth once daily Echinacea Purpurea Extract Discontinued 750 MG PO DAILY September 19, 2013 11:00pm September 18, 2018 10:25am furosemide 20 mg oral tablet (7 sources) Loop Diuretic Start: 03-07-2024 End: 08-23-2024 take 1 tablet by mouth every other day Furosemide (Lasix) 20 mg tablet Discontinued 20 mg PO EVERY OTHER DAY March 07, 2024 1:00am August 23, 2024 8:22am Start: 06-02-2023 End: 06-04-2023 furosemide (Lasix) injection 40 mg ginseng (7 sources) Start: 03-09-2023 End: 03-09-2023 ginseng Discontinued 1 NMA P O EVERY MORNING March 09, 2023 1:00am March 09, 2023 10:51am Start: 03-09-2023 End: 03-09-2023 take 1 capsule by mouth once daily in the morning ginseng Discontinued 1 CAP PO EVERY MORNING March 09, 2023 1:00am March 09, 2023 10:51am Start: 03-09-2023 End: 03-09-2023 take 1 capsule by mouth once daily in the morning ginseng Discontinued 1 CAP PO EVERY MORNING March 09, 2023 12:00am March 09, 2023 9:51am glucagon (rdna) 1 mg injection (2 sources) Antihypoglycemic Agent Start: 06-01-2023 End: 06-06-2023 1 mg, IntraMUSCular, PRN, low blood sugar, Blood glucose less than 70 mg/dL and patient NOT ALERT or NPO and does not have IV access., Starting on Clara 06/01/23 at 1328, Recovery & On Unit, After administration, attempt intravenous access and start D5W at 100 mL/hr. Repeat blood glucose in 15 minutes x2 and notify provider. Glucosamine-Cho ndroit-Collagen 250-200-116.67 MG capsule (1 source) End: 05-31-2023 take 1 tablet by mouth once daily Glucosamine-Chondroi t-Collagen 250-200-116.67 MG capsule Take 1 tablet by mouth daily. 0 05/31/2023 Discontinued (Med list cleanup) 150 ml glucose 50 mg/ml injection (4 sources) Start: 06-01-2023 End: 06-06-2023 12.5 g, IntraVENous, PRN, low blood sugar, Blood glucose less than 70 mg/dL and patient NOT ALERT or NPO., Starting on Clara 06/01/23 at 1328, Recovery & On Unit, If patient does not respond within 5 minutes, repeat dose x1. Start D5W at 100 mL/hour until ordering provider can be reached. Repeat blood glucose in 15 minutes. If blood glucose is less than 70 mg/dL, repeat treatment and recheck blood glucose in 15 minutes x2. If using Glucostabilizer, dose as instructed per system. Start: 06-01-2023 End: 06-06-2023 100 mL/hr, IntraVENous, PRN, Blood sugar less than 70mg/dL, Starting on Clara 06/01/23 at 1328, Recovery & On Unit, Start infusion following administration of dextrose 50% or glucagon. 0.5 ml heparin sodium, porcine 64918 unt/ml prefilled syringe (6 sources) Unfractionated Heparin, Anti-coagulant Start: 06-03-2023 End: 06-06-2023 heparin injection 5,000 Units Start: 05-31-2023 End: 06-01-2023 heparin 25,000 units in dext jennifer 5% 250mL infusion (premix) Start: 05-31-2023 End: 06-01-2023 heparin injection 2,000 Unit s 1 ml HYDROmorphone hydrochloride 1 mg/ml cartridge (8 sources) Opioid Agonist Start: 06-02-2023 End: 06-03-2023 take 1 mg intravenously every four hours as needed for pain HYDROmorphone (Dilaudid) injection 1 mg Start: 06-02-2023 End: 06-02-2023 HYDROmorphone (Dilaudid) inj ection 0.5 mg Start: 06-02-2023 End: 06-02-2023 HYDROmorphone (Dilaudid) inj ection 0.5 mg Start: 06-02-2023 End: 06-02-2023 HYDROmorphone (Dilaudid) inj ection 0.5 mg Start: 06-02-2023 End: 06-02-2023 HYDROmorphone (Dilaudid) 1 M G/ML injection - Pyxis ADS Override Pull ibuprofen 800 mg oral tablet (20 sources) Nonsteroidal Anti-inflammatory Drug Start: 03-09-2023 End: 10-17-2023 take 1 tablet by mouth three times daily as needed for pain Ibuprofen 800 mg tablet Discontinued 800 mg PO THREE TIMES A DAY as needed for pain March 09, 2023 1:00am October 17, 2023 9:11am 100 ml insulin, regular, human 1 unt/ml injection (2 sources) Insulin Start: 06-01-2023 End: 06-02-2023 1-50 Units/hr (1-50 mL/hr), IntraVENous, Continuous, Starting on Clara 06/01/23 at 1330, Recovery & On Unit, As guided by calculator flowsheet Low target: 120 High target: 160 Hold insulin infusion if BS< 100 mg/dl, if BS < 70 mg/dl follow hypoglycemia treatment orders, continue to check BS as ordered, and restart insulin infusion if and when BS increases back into goal range. BUD: 30 days at room temperature 24 hr isosorbide mononitrate 60 mg extended release oral tablet (20 sources) Nitrate Vasodilator Start: 03-09-2023 End: 06-20-2023 take 1 tablet by mouth once daily, then take 1 tablet by mouth every twenty-four hours Isosorbide Mononitrate 60 mg tablet extended release 24 hr Discontinued 60 mg PO DAILY March 09, 2023 1:00am June 20, 2023 11:04am Start: 11-01-2019 End: 03-09-2023 take 1 tablet by mouth once daily, then take 1 tablet by mouth every twenty-four hours Isosorbide Mononitrate 30 mg tablet extended release 24 hr Discontinued 30 mg PO DAILY November 01, 2019 12:00am March 09, 2023 10:50am Start: 09-20-2013 End: 09-18-2018 take 1 tablet by mouth once daily, then take 1 tablet by mouth every twenty-four hours Isosorbide Mononitrate 30 MG tablet extended release 24 hr Discontinued 30 mg PO DAILY September 20, 2013 12:00am September 18, 2018 11:26am 1 ml ketorolac tromethamine 15 mg/ml cartridge (2 sources) Nonsteroidal Anti-inflammatory Drug, Cyclooxygenase Inhibitor Start: 06-01-2023 End: 06-03-2023 take 15 mg intravenously every six hours ketorolac (Toradol) injection 15 mg krill oil 500 mg oral capsule (20 sources) Start: 03-09-2023 End: 03-09-2023 Krill Oil 500 mg capsule Discontinued mg PO March 09, 2023 1:00am March 09, 2023 10:51am Start: 03-09-2023 End: 03-09-2023 Krill Oil Discontinued MG PO March 09, 2023 1:00am March 09, 2023 10:51am lidocaine 0.04 mg/mg medicated patch (2 sources) Antiarrhythmic, Amide Local Anesthetic Start: 06-01-2023 End: 06-06-2023 1 patch, Topical, Administer over 12 Hours, Daily, First dose on Clara 06/01/23 at 1330, Recovery & On Unit, Cut in half and place on both sides of the incision. Patch may remain in place for up to 12 hours in any 24 hour period. lisinopril 5 mg oral tablet (20 sources) Angiotensin Converting Enzyme Inhibitor Start: 09-18-2018 End: 06-20-2023 take 2.5 mg by mouth once daily Lisinopril 5 mg tablet Discontinued 2.5 mg PO DAILY September 18, 2018 12:00am June 20, 2023 11:04am Start: 09-18-2018 End: 06-20-2023 take 2.5 mg by mouth once daily Lisinopril Discontinue d 2.5 MG PO DAILY September 18, 2018 12:00am June 20, 2023 11:04am Start: 09-20-2013 End: 09-18-2018 take 1 tablet by mouth once daily Lisinopril 2.5 MG tablet Discontinued 2.5 mg PO DAILY September 20, 2013 12:00am September 18, 2018 11:26am magnesium hydroxide 80 mg/ml oral suspension (4 sources) Start: 06-01-2023 End: 06-06-2023 magnesium hydroxide (Milk of Magnesia) 400 MG/5ML suspension 30 mL magnesium sulfate IVPB premix 2,000 mg (2 sources) Start: 06-01-2023 End: 06-06-2023 magnesium sulfate IVPB premix 2,000 mg meclizine hydrochloride 25 mg oral tablet (20 sources) Antiemetic Start: 06-25-2021 End: 06-20-2023 take 1 tablet by mouth every eight hours as needed for dizziness Meclizine 25 MG tablet Discontinued 25 mg PO EVERY 8 HOURS NEEDED as needed for Dizziness June 25, 2021 10:58am June 20, 2023 11:05am Start: 11-01-2019 End: 03-09-2023 take 1 tablet by mouth four times daily as needed for dizziness Meclizine 25 MG tablet Discontinued 25 mg PO 4 TIMES DAILY NEEDED as needed for Dizziness November 01, 2019 12:00am March 09, 2023 10:51am End: 05-31-2023 take 1 tablet by mouth three times daily as needed for dizziness meclizine (Antivert) 25 MG tablet Take 25 mg by mouth 3 times daily as needed for dizziness. 0 05/31/2023 Discontinued (Med list cleanup) methocarbamol 500 mg oral tablet (2 sources) Muscle Relaxant Start: 06-03-2023 End: 06-06-2023 methocarbamol (Robaxin) tablet 500 mg methylPREDNISolone acetate 40 mg/ml injectable suspension (1 source) Corticosteroid Start: 09-11-2020 End: 09-11-2020 Depo-Medrol (methylprednisolon e acetate) 40 mg/mL suspension for injection Discontinued 10 MG INTRAARTIC ONCE 0.25 September 11, 2020 10:17am September 11, 2020 11:34am Multivitamin,Tx-Iron-Min erals (9 sources) Start: 05-29-2016 End: 09-18-2018 take 1 tablet by mouth once daily Multivitamin,Tx-Ir on-Minerals Discontinued 1 TABLET PO DAILY May 29, 2016 3:16pm September 18, 2018 11:26am Start: 05-29-2016 End: 09-18-2018 take 1 tablet by mouth once daily Multivitamin,Bd-Npoz-Dmftmedz Discontinu ed 1 TABLET PO DAILY May 29, 2016 1:00am September 18, 2018 11:26am Start: 05-29-2016 End: 09-18-2018 take 1 tablet by mouth once daily Multivitamin,Ao-Gciz-Nlgaedfg Discontinu ed 1 TABLET PO DAILY May 29, 2016 12:00am September 18, 2018 10:26am Multivitamin,Eu-Tigu-Ahhnpdu s 1 TABLET tablet (1 source) Start: 05-29-2016 End: 09-18-2018 take 1 tablet by mouth once daily Multivitamin,Af-Vuzw-Vjngjpjo 1 TABLET tablet Discontinued 1 {tbl} PO DAILY May 29, 2016 1:00am September 18, 2018 11:26am mupirocin 0.02 mg/mg topical ointment (6 sources) RNA Synthet ase Inhibit or Antibac terial Start: 06-01-2023 End: 06-04-2023 Nasal, 2 times daily, First dose on Mon06/01/23 at 1330, For 4 days, Phase II/On Unit Start: 05-31-2023 End: 06-01-2023 mupirocin (Bactroban) 2 % oi ntment 1 ml naloxone hydrochloride 0.4 mg/ml injection (2 sources) Opioid Antagonist Start: 06-03-2023 End: 06-06-2023 naloxone (Narcan) injection 0.4 mg niCARdipine (Cardene) in sodium chloride 0.9 % infusion - Pyxis ADS Override Pull (2 sources) Start: 06-01-2023 End: 06-01-2023 niCARdipine (Cardene) in sodium chloride 0.9 % infusion - Pyxis ADS Override Pull niCARdipine (Cardene) infusion 20mg in 0.9 % sodium chloride 200mL (premix) (2 sources) Start: 06-01-2023 End: 06-02-2023 take 5 mg intravenously every hour as needed 3-15 mg/hr (30-150 mL/hr), IntraVENous, Continuous PRN, SBP above hemodynamic goal, Starting on Clara 06/01/23 at 1328, Phase II/On Unit, Titrate at 2.5 mg/hr no faster than every 5 minutes May titrate outside of defined titration parameters (increments and frequency) under the direction of the provider. When approaching therapeutic goal or weaning off, smaller titration increments of 1 mg/hr no faster than every 5 minutes may be used to maintain goal. If SBP falls below goal, wean drip, re-evaluate, once hemodynamic parameters are back within range resume drip using previous ordered parameters. For unstable, emergent situation, may titrate accordingly to meet hemodynamic goal. premix bag, Titrate Infusion? Yes, Initial Infusion Rate: 5 mg/hr, Goal of Therapy is: Other, Other Goal: Refer to Hemodynamic Goals nursing order, Contact Provider if: Patient is receiving the maximum dose and is not achieving the goal of therapy 250 ml nitroglycerin 0.2 mg/ml injection (15 sources) Nitrate Vasodilator Start: 06-01-2023 End: 06-02-2023 5-300 mcg/min (1.5-90 mL/hr), IntraVENous, Continuous, Starting on Clara 06/01/23 at 1330, Phase II/On Unit, If dose LESS than 20 mcg/min titrate by 5 mcg/min no faster than every 1 minute to goal If dose GREATER than or equal to 20 mcg/min titrate by 10 mcg/min no faster than every 1 minute to goal May titrate outside of defined titration parameters (increments and frequency) under the direction of the provider. Use of nitroglycerin is not recommended if SBP less than 90 mmHg; notify provider if indicated. For unstable, emergent situation, may titrate accordingly to meet hemodynamic goal. Notify provider if reach max dose and patient not at hemodynamic goal. , Titrate Infusion? No, Infusion Dose: 5 mcg/min Start: 05-31-2023 End: 06-01-2023 nitroGLYCERIN 50 mg in dextr ose 5% 250 mL infusion Start: 03-09-2023 End: 06-20-2023 Nitroglycerin 0.4 mg tablet, sublingual Discontinued 0.4 mg SL every 5 to 15 minutes as needed for chest pain March 09, 2023 1:00am June 20, 2023 11:04am do not exceed 3 doses per episode ondansetron ODT (Zofran-ODT) disintegrating tablet 4 mg (2 sources) Start: 06-01-2023 End: 06-06-2023 take 1 tablet by mouth every eight hours as needed for nausea and vomiting ondansetron ODT (Zofran-ODT) disintegrating tablet 4 mg pantoprazole 40 mg delayed release oral tablet (4 sources) Proton Pump Inhibitor Start: 06-04-2023 End: 06-06-2023 pantoprazole (ProtoNix) EC tablet 40 mg Start: 06-02-2023 End: 06-02-2023 40 mg, IntraVENous, Administ er over 2 Minutes, Daily, First dose on Mon06/02/23 at 0600, Phase II/On Unit, Reconstitute with 10 mL 0.9 % sodium chloride and administer over at least 2 minutes. polyethylene glycol [id number] [id number] mg powder for oral solution (2 sources) Osmotic Laxative Start: 06-01-2023 End: 06-06-2023 17 g, Oral, Daily, First dose on Mon06/01/23 at 1330, Recovery & On Unit, Bowel Regimen - for prevention of constipation. microencapsulated potassium chloride 10 meq extended release oral tablet (2 sources) Start: 06-02-2023 End: 06-06-2023 20 mEq, Oral, PRN, Hypokalemia, Starting on Mon06/02/23 at 0000, Phase II/On Unit, If patient is intubated or not tolerating PO use PRN IV replacement protocol Potassium level Dose LESS than 3.0 = Give 20 mEq x 3 doses 3.0-3.6 = Give 20 mEq x 2 doses Recheck potassium level 2 hour after replacement given, place order for lab under [place] If potassium level LESS than 3 after 1st replacement: Call surgeon. Do not crush or break. Do not crush or chew. promethazine hydrochloride 25 mg oral tablet (11 sources) Phenothiazine Start: 11-01-2019 End: 06-20-2023 take 1 tablet by mouth every six hours as needed for nausea Promethazine 25 MG tablet Discontinued 25 mg PO EVERY 6 HOURS NEEDED as needed for Nausea November 01, 2019 12:00am June 20, 2023 11:05am 100 ml propofol 10 mg/ml injection (2 sources) General Anesthetic Start: 06-01-2023 End: 06-02-2023 5-50 mcg/kg/min 108 kg (3.24-32.4 mL/hr), IntraVENous, Continuous, Starting on Clara 06/01/23 at 1330, Recovery & On Unit, Instructions If RASS 1 point below goal - decrease dose by 5mcg/kg/min no faster than every 5 min If RASS 2 points below goal- decrease dose by 10mcg/kg/min no faster than every 5 min If RASS at goal, continue current dose If RASS 2 or more points above goal - increase dose by 10mcg/kg/min no faster than every 5 min If RASS 1 point above goal - increase dosee by 5mcg/kg/min no faster than every 5 min If after titration rate change patient exhibits adverse hemodynamic response, next titration rate change may be adjusted by one-half of the previous rate change If patient fails sedation interruption, resume propofol titration at 50% of previous rate General Anesthetic - do not give without appropriate ventilation support. Do not administer propofol in same IV catheter as blood or plasma. Discard any unused portion of propofol vials and tubing after 12 hours., Titrate Infusion? Yes, Initial Infusion Dose: 30 mcg/kg/min, Goal of Therapy: RASS of -1 to 0, Contact Provider if: Patient is receiving maximum dose and is not achieving the goal of therapy 12 hr ranolazine 500 mg extended release oral tablet (11 sources) Anti-anginal Start: 03-09-2023 End: 06-20-2023 take 1 tablet by mouth twice daily Ranolazine 500 mg tablet extended release 12 hr Discontinued 500 mg PO TWICE A DAY March 09, 2023 1:00am June 20, 2023 11:05am End: 06-06-2023 take 1 tablet by mouth twice daily ranolazine (Ranexa) 500 MG 12 hr tablet Take 1,000 mg by mouth 2 times daily. Do not crush, chew, or split. 0 06/06/2023 Discontinued (Stop taking at discharge) simvastatin 40 mg oral tablet (20 sources) HMG-CoA Reductase Inhibitor Start: 11-01-2019 End: 03-09-2023 take 1 tablet by mouth at bedtime Simvastatin 40 MG tablet Discontinued 40 mg PO AT BEDTIME November 01, 2019 12:00am March 09, 2023 10:50am Start: 09-20-2013 End: 09-18-2018 take 1 tablet by mouth at bedtime Simvastatin 80 MG tablet Discontinued 80 mg PO AT BEDTIME September 20, 2013 12:00am September 18, 2018 11:26am 5 ml sodium chloride 9 mg/ml injection (8 sources) Start: 06-01-2023 End: 06-06-2023 10 mL, IntraVENous, Every 12 hours scheduled (2 times per day), First dose on Mon06/01/23 at 2100, Recovery & On Unit Start: 06-01-2023 End: 06-02-2023 take 20 mL intravenously every hour 20 mL/hr, IntraVENous, Continuous, Starting on Mon06/01/23 at 1330, Recovery & On Unit, 20 ml/hr to SP(introducer) and WT on [place] Koki Catheter; once [place] discontinued run at 20 ml/hr through SP(introducer) Start: 06-01-2023 End: 06-06-2023 take 10 mL intravenously once as needed 10 mL, IntraVENous, PRN, line care, Starting on Mon06/01/23 at 1328, Recovery & On Unit, After every IV line use Start: 05-31-2023 End: 06-01-2023 take 5-40 mL intravenously every twelve hours 5-40 mL, IntraVENous, Every 12 hours, First dose on Mon05/31/23 at 1500, For Line Patency: Peripheral IV = 5 mL; Midline or Central Line = 10 mL/lumen. If following IV push medication, administer flush at same rate as the IV push. Flush volume is determined by type of infusion therapy being given. For non-viscous solutions use: Peripheral IV = 5 mL Midline or Central Line = 10 mL/lumen For viscous solutions (i.e. blood components, parenteral nutrition, contrast media, or after obtaining blood sample) use: Peripheral IV = 10 mL Midline or Central Line = 20 mL/lumen 5 ml sugammadex 100 mg/ml injection (4 sources) Start: 06-01-2023 End: 06-01-2023 sugammadex (Bridion) injecti on 430 mg Start: 06-01-2023 End: 06-01-2023 sugammadex (Bridion) injecti on 430 mg Start: 06-01-2023 End: 06-01-2023 sugammadex (Bridion) 500 MG/ 5ML injection - Pyxis ADS Override Pull ubidecarenone 200 mg oral capsule (8 sources) Start: 03-09-2023 End: 06-20-2023 take 10 capsules by mouth once daily Coenzyme Q10 200 mg capsule Discontinued 200 mg PO DAILY March 09, 2023 1:00am June 20, 2023 11:04am End: 05-31-2023 take 4 capsules by mouth once daily coenzyme Q-10 50 MG capsule Take 200 mg by mouth daily. 0 05/31/2023 Discontinued (Med list cleanup) vitamin b12 1 mg oral tablet (10 sources) Vitamin B12 Start: 05-29-2016 End: 09-18-2018 take 1 tablet by mouth once daily Cyanocobalamin (Vitamin B-12) 1,000 MCG tablet Discontinued 1000 ug PO DAILY May 29, 2016 1:00am September 18, 2018 11:25am zinc gluconate 50 mg oral tablet (20 sources) Start: 03-09-2023 End: 06-20-2023 take 1 tablet by mouth once daily Zinc Gluconate 50 mg tablet Discontinued 50 mg PO DAILY March 09, 2023 1:00am June 20, 2023 11:06am Problems Active Problems Problem Classification Problem Date Documented Da te Episodic/Chronic Cardiac dysrhythmias (13 sources) Nonsustained ventricular tachycardia ; Translations: [Nonsustained ventricular tachycardia] 03-09-2023 Chronic Conditions associated with dizziness or vertigo (20 sources) Dizziness; Translations: [Dizziness and giddiness] Onset: 08-01-2024 11-02-2019 Episodic Coronary atherosclerosis and other heart disease (20 sources) Coronary atherosclerosis; Translations: [Atherosclerotic heart disease of [place] coronary artery without angina pectoris] Onset: 05-24-2023 03-09-2023 Chronic Disorders of lipid metabolism (18 sources) Hyperlipidemia; Translations: [Hyperlipidemia, unspecified] Onset: 11-09-2023 03-09-2023 Chronic Essential hypertension (20 sources) Hypertensive disorder; Translations: [Essential (primary) hypertension] Onset: 11-09-2023 11-02-2019 Chronic Fluid and electrolyte disorders (9 sources) Mild dehydration; Translations: [Dehydration] 04-16-2022 Episodic Open wounds of extremities (20 sources) Laceration of upper limb; Translations: [Laceration of unspecified muscle, fascia and tendon at wrist and hand level, right hand, initial encounter] 10-02-2017 Episodic Open wounds of head; neck; and trunk (4 sources) Local infection of wound; Translations: [Unspecified open wound of right front wall of thorax without penetration into thoracic cavity, initial encounter] 07-17-2023 Episodic Other connective tissue disease (10 sources) Digital mucous cyst; Translations: [Ganglion, unspecified hand] 09-11-2020 Episodic Other ear and sense organ disorders (10 sources) Tinnitus; Translations: [Tinnitus, unspecified ear] 07-03-2021 Episodic Other lower respiratory disease (7 sources) Dyspnea on exertion; Translations: [Other forms of dyspnea] 03-09-2023 Episodic Other lower respiratory disease (3 sources) Other forms of dyspnea; Translations: [Other respiratory abnormalities] 03-09-2023 Episodic Sprains and strains (10 sources) Sprain of ankle; Translations: [Sprain of unspecified ligament of left ankle, initial encounter] 09-18-2018 Episodic Unclassified (2 sources) New Patient; Translations: [New Patient] Onset: 05-31-2023 Viral infection (9 sources) Disease caused by 2019-nCoV; Translations: [COVID-19] 04-16-2022 Episodic Past or Other Problems Problem Classification Problem Date Documented Da te Episodic/Chronic Coronary atherosclerosis and other heart disease (10 sources) Presence of aortocoronary bypass graft; Translations: [Aortocoronary bypass status] Onset: 07-04-2023 06-20-2023 Episodic Genitourinary symptoms and ill-defined conditions (4 sources) Retention of urine; Translations: [Retention of urine, unspecified] Onset: 09-15-2023 06-06-2023 Episodic Nonspecific chest pain (11 sources) Chest pain; Translations: [Chest pain, unspecified] Onset: 11-06-2023 03-09-2023 Episodic Results Test Name Value Interpretation Reference Range Facility Cardiology Visit Reporton Cardiology Visit Report [facility] [address] [place] [address] OFFICE VISIT Date of Service: 08/23/24 MR#: [id number] Acct: [id number] Name: SYLVESTER LACY Rep #: [id number] : 1960 Provider: MIESHA Blackwood Age/Sex: 63/M Location: [facility] Status: Signed HPI HPI History of Present Illness Details: Sylvester Lacy is a 63 year old male with a hx of coronary artery disease with RCA and PDA in 2008. He also has a history of hypertension. In 2008 he had angioplasty and stenting done of the RCA system at a hospital in [place]. At that time he was noted to have severe disease in his LAD and moderate disease in his circumflex. Patient had a stress test at the [facility] in December 2022 which demonstrated no reversible ischemia, fixed inferior defect likely represents attenuation artifact versus small possible scar. Wall motion is within normal limits. He was able to walk for 6 minutes on a Kevin protocol achieving 7 METS. He presented to see us in April and at that time was noted to have chest pain with exertion. He finally underwent a cardiac catheterization which demonstrated severe triple-vessel disease with 90% stenosis noted of all 3 vessels. His ejection fraction was preserved. He was transferred to [facility] where he underwent coronary bypass surgery x 5 on May 31. He had a CAMPBELL to the LAD, free radial from the left radial artery to the second obtuse marginal branch, saphenous vein graft to the right posterior descending artery, saphenous vein graft to the first diagonal branch, saphenous vein graft to the second diagonal branch. He tolerated the procedure well IntraOp PAM demonstrated no significant abnormalities. He has been home since June 05 and has done well. He has some problems with his urinary system. [facility] Pt is still self cathing. He has a surgery in September. From a cardiac standpoint patient is doing well. He still does have incisional pain where it is more of a nerve pain and is tender to touch. He does have a keloid on that. He does not have any other chest pain. He is active. He does not have any potation's. He does not have any lightheadedness or dizziness. 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 Required: No Is patient in pain?: No Allergies adhesive (adhesives) Adverse Reaction (Intermediate, Verified 08/23/24 08:18) Rash Medications ???Medication ???Instructions ???Recorded ???Confirmed ???Type aspirin 81 mg chewable tablet 81 mg PO DAILY 06/25/21 08/23/24 H istory multivitamin 1 tab PO DAILY 03/09/23 08/23/24 H istory amlodipine 5 mg tablet 5 mg PO DAILY 10/17/23 08/23/24 Hi story tamsulosin 0.4 mg capsule (Flomax) 0.8 mg PO QHS 10/17/23 08/23/24 History carvedilol 25 mg tablet 25 mg PO .COMPLEX #180 tabs 08/23/24 Rx carboxymethylcellulo se sodium 0.25 1 drp ophthalmic (eye) TID 08/2308/23/24 History % eye drops magnesium oxide 250 mg PO QDAY 08/23/24 08/23/24 H istory meloxicam 15 mg tablet 15 mg PO QDAY 08/23/24 08/23/24 Hi story rosuvastatin 40 mg tablet 40 mg PO QDAY 08/23/24 08/23/24 Hi story Ejection fraction %: 55 Have you fallen in the past year?: No PFSH Medical History Urinary retention ELIZABETH (dyspnea on exertion) History of pulmonary embolus (PE) History of inferior wall myocardial infarction NSVT (nonsustained ventricular tachycardia) History of alcohol abuse Atherosclerosis of coronary artery of [place] heart without angina pectoris COVID-19 Hyperlipidemia Mucous cyst of digit of hand Hay fever Hemorrhoids Hypertension Surgical History S/P CABG x 5 (06/01/23) History of coronary artery stent placement ( 01/2009) Family History Mother CVA (cerebral vascular accident) Diabetes Social History Smoking Status: Former smoker how long ago did patient quit [id number] and again in 2014 alcohol intake: current Alcohol type: beer details: weekly substance use type: does not use ROS Const Const: Positive for fatigue (Relates to weight gain after long-term); Negative for weakness Eyes Eyes: Negative for change in vision ENT ENT: Negative for dizziness or balance problems Cardio Chest Pain: No Palpitations: No Edema: Bilateral (Unchanged) Resp Respiratory: Positive for SOB with activity (Occasio (more content not included)... Normal [facility] 12 Lead EKGon 03-07-2024 12 Lead EKG [facility] [address] [place] [address] 12 Lead EKG 03/07/24 1000 MR#: [id number] Acct: [id number] Name: SYLVESTER LACY Rep #: [id number] : 1960 63 From: Eliud Arzate MD Attending Dr: Status: DEP ER Ordering Dr: Daniel Coffey DO Date: 03/07/24 Location: ED Sex: M C Admitted: Test Reason : DIZZY Blood Pressure : */* mmHG Vent. Rate : 69 BPM Atrial Rate : 69 BPM P-R Int : 188 ms QRS Dur : 82 ms QT Int : 410 ms P-R-T Axes : * -3 -49 degrees QTcB Int : 439 ms Normal sinus rhythm T wave abnormality, consider inferior ischemia Abnormal ECG Confirmed by LINCOLN WEIR, CURT ([id number]), editor in chief newspaper GERTRUDIS CHAN ([id number]) on 03/13/2024 1:23:38 PM Referred By: Confirmed By: CURT ARZATE MD 03/13/24 1323 Date Eliud Arzate MD CC: Dr. Daniel Coffey, DO; [facility] Signed Normal [facility] BNP,B-Type NATRIURETIC PEPTI Radhames 03-07-2024 Natriuretic peptide B (Bld) [Mass/Vol] 196.0 pg/mL High 0-100 [facility] Comment on above: Performed By: #### L 100.0500, L501.5425, L500.2500, [id number] ####[facility] [address] [place], [address] Basic Metabolic Profile (BMP )on 03-07-2024 BUN/CRE 21.4 RATIO High 10-20 [facility] Comment on above: Order Comment: 1Y Performed By: #### L 100.0500, L501.5425, L500.2500, [id number] ####[facility] [address] [place], [address] CA,Total 9.1 mg/dL Normal 8.5-10.1 [facility] Comment on above: Order Comment: 1Y Performed By: #### L 100.0500, L501.5425, L500.2500, [id number] ####[facility] [address] [place], [address] Chloride [Moles/Vol] 103 mmol/L Normal 98-107 [facility] Comment on above: Order Comment: 1Y Performed By: #### L 100.0500, L501.5425, L500.2500, [id number] ####[facility] [address] [place], [address] CO2 [Moles/Vol] 29.0 mmol/L Normal 21.0-32.0 [facility] Comment on above: Order Comment: 1Y Performed By: #### L 100.0500, L501.5425, L500.2500, [id number] ####[facility] [address] [place], [address] Creatinine [Mass/Vol] 0.84 mg/dL Normal 0.70-1.30 [facility] Comment on above: Order Comment: 1Y Result Comment: The validity of the calculated GFR GFRAA in patients over 70 years has not been determined. Clinical correlation is essential. Performed By: #### L 100.0500, L501.5425, L500.2500, L503.6620 ####[facility] [address] [place], [address] ECRCL 102.94 ml/min Normal [facility] Comment on above: Order Comment: 1Y Performed By: #### L 100.0500, L501.5425, L500.2500, L503.6620 ####[facility] [address] [place], [address] EST GFR - AA 118 mL/min Normal >60 [facility] Comment on above: Order Comment: 1Y Result Comment: Afri can Nepalese GFR Calc Performed By: #### L 100.0500, L501.5425, L500.2500, [id number] ####[facility] [address] [place], [address] GAP 4 Low 5-15 [facility] Comment on above: Order Comment: 1Y Performed By: #### L 100.0500, L501.5425, L500.2500, [id number] ####[facility] [address] [place], [address] GFR/1.73 sq M.predicted among non-blacks MDRD (S/P/Bld) [Vol rate/Area] 97 mL/min/{1.73_m2} Normal >60 [facility] Comment on above: Order Comment: 1Y Result Comment: Non- GFR Calc Performed By: #### L 100.0500, L501.5425, L500.2500, [id number] ####[facility] [address] [place], [address] Glucose [Mass/Vol] 98 mg/dL Normal 74-106 [facility] Comment on above: Order Comment: 1Y Performed By: #### L 100.0500, L501.5425, L500.2500, [id number] ####[facility] [address] [place], [address] Potassium [Moles/Vol] 4.7 mmol/L Normal 3.5-5.1 [facility] Comment on above: Order Comment: 1Y Performed By: #### L 100.0500, L501.5425, L500.2500, [id number] ####[facility] [address] [place], [address] Sodium [Moles/Vol] 136 mmol/L Normal 136-145 [facility] Comment on above: Order Comment: 1Y Performed By: #### L 100.0500, L501.5425, L500.2500, L503.6620 ####[facility] [address] [place], [address] Urea nitrogen [Mass/Vol] 18 mg/dL Normal 7-18 [facility] Comment on above: Order Comment: 1Y Performed By: #### L 100.0500, L501.5425, L500.2500, L503.6620 ####[facility] [address] [place], [address] CBC-Complete Blood Cnt No Di ffon 03-07-2024 Erythrocyte distribution width (RBC) [Ratio] 13.0 % Normal 11.6-14.6 [facility] Comment on above: Performed By: #### L 100.0500, L501.5425, L500.2500, L503.6620 #### [facility] [address] [place], [address] Hematocrit (Bld) [Volume fraction] 42.0 % Normal 40-54 [facility] Comment on above: Performed By: #### L 100.0500, L501.5425, L500.2500, L503.6620 #### [facility] [address] [place], [address] Hemoglobin (Bld) [Mass/Vol] 13.4 g/dL Normal 13.0-16.5 [facility] Comment on above: Performed By: #### L 100.0500, L501.5425, L500.2500, L503.6620 #### [facility] [address] [place], [address] MCH (RBC) [Entitic mass] 28.5 pg Normal 27.0-32.0 [facility] Comment on above: Performed By: #### L 100.0500, L501.5425, L500.2500, L503.6620 #### [facility] [address] [place], [address] MCHC (RBC) [Mass/Vol] 31.9 g/dL Low 32-36 [facility] Comment on above: Performed By: #### L 100.0500, L501.5425, L500.2500, L503.6620 #### [facility] [address] [place], [address] MCV (RBC) [Entitic vol] 89.4 fL Normal 80-94 [facility] Comment on above: Performed By: #### L 100.0500, L501.5425, L500.2500, L503.6620 #### [facility] [address] [place], [address] Platelet mean volume (Bld) [Entitic vol] 9.3 fL Normal 6.2-12.0 [facility] Comment on above: Performed By: #### L 100.0500, L501.5425, L500.2500, L503.6620 #### [facility] [address] [place], [address] Platelets (Bld) [#/Vol] 213 10*3/uL Normal 150-450 [facility] Comment on above: Performed By: #### L 100.0500, L501.5425, L500.2500, L503.6620 #### [facility] [address] [place], [address] RBC (Bld) [#/Vol] 4.70 10*6/uL Normal 4.6-6.2 [facility] Comment on above: Performed By: #### L 100.0500, L501.5425, L500.2500, L503.6620 #### [facility] [address] [place], [address] RDW SD 41.9 fl Normal 35.1-43.9 [facility] Comment on above: Performed By: #### L 100.0500, L501.5425, L500.2500, L503.6620 #### [facility] [address] [place], [address] WBC (Bld) [#/Vol] 6.2 10*3/uL Normal 4.4-11.0 [facility] Comment on above: Performed By: #### L 100.0500, L501.5425, L500.2500, L503.6620 #### [facility] [address] [place], [address] CTA Head AND Neck W/ Contras ton 03-07-2024 CTA Head AND Neck W/ Contrast [facility] Imaging Services [address] [place] [address] CTA Head AND Neck W/ Contrast MR#: [id number] Acct: [id number] Name: BAMBISYLVESTERLOY CARDOZA Rep #: [id number] : 1960 M 63 From: Dominique Pollard MD PCP: [facility] Status: REG ER Study: CTA Head AND Neck W/ Contrast Date of Exam: Exam# [id number] Ordering Dr: Daniel Coffey DO [id number] INDICATION: dizziness, elevated BP EXAMINATION: CT BRAIN WITHOUT CONTRAST, CTA HEAD, AND CTA NECK TECHNIQUE: Noncontrast axial images were obtained of the brain. Subsequently, routine carotid CT angiogram protocol was performed without and with IV contrast. In addition, images were obtained of the [place] of [place]. NASCET criteria using the distal ICAs for comparison were used for evaluation of stenoses. 3D reconstructions were reviewed. The protocol utilizes one or more of the following dose reduction techniques: automated exposure control, adjustment of mA and/or kV according to patient size,and/or use of iterative reconstruction technique. IV Contrast dosage and agent: 100 cc of Isovue-370 COMPARISON: June 25, 2021 FINDINGS: --CT BRAIN WITHOUT CONTRAST: BRAIN PARENCHYMA: No intra- or extra-axial hemorrhage. No evidence of acute infarct. No intracranial mass or mass effect. There is preservation of the paez/white matter interface. Posterior fossa structures are unremarkable. CSF SPACES: Appropriate for age. No hydrocephalus. Basal cisterns are patent. CALVARIUM, SKULL BASE, PARANASAL SINUSES AND MASTOID AIR CELLS: Clear. No discrete lytic or blastic abnormalities. ASPECTS Score for Acute Strokes: 10 --CTA NECK: AORTIC ARCH AND BRANCHES: Normal anatomy, patent. RIGHT CCA: No occlusion, significant stenosis or dissection. RIGHT ICA: No occlusion, significant stenosis or dissection. LEFT CCA: No occlusion, significant stenosis or dissection. LEFT ICA: There are peripheral calcifications. No occlusion, significant stenosis or dissection. RIGHT VERTEBRAL ARTERY: No occlusion, significant stenosis or dissection. LEFT VERTEBRAL ARTERY: No occlusion, significant stenosis or dissection. NECK SOFT TISSUES: Unremarkable. --CTA HEAD: --Anterior circulation: ICAs: There are bilateral peripheral calcifications No significant stenosis at the intracranial/visuali zed segments. ACAs: No significant stenosis at the visualized segments. ACOM: Present. MCAs: No significant stenosis at the visualized segments. --Posterior circulation: PCOMs: Within normal limits handle attacher: No significant stenosis at the visualized segments. BASILAR ARTERY: No significant stenosis. VERTEBRAL ARTERIES: No significant stenosis at the intradural/visualize d segments. No evidence of intracranial aneurysm or vascular malformation. CT/CTA Head AND Neck W/ Contrast IMPRESSION: Atherosclerosis with no associated significant stenosis or occlusion. Electronically Signed: Dominique Pollard MD at 11:56 EST , CC: Dr. Daniel Coffey DO; [facility] Museum Security Chief: Signed Normal [facility] Chest 1 View (Portable)on Chest 1 View (Portable) [facility] Imaging Services [address] [place], [place] [address] Chest 1 View (Portable) MR#: [id number] Acct: [id number] Name: SYLVESTER LACY Rep #: [id number] : 1960 M 63 From: Dominique Pollard MD PCP: [facility] Status: REG ER Study: Chest 1 View (Portable) Date of Exam: 03/07/24 Exam# [id number] Ordering Dr: Daniel Coffey DO [id number] INDICATION: Shortness of breath EXAMINATION/TECHNIQU E: X-RAY - XR Chest 1 View COMPARISON: August 30, 2023 ____ FINDINGS: LINES/DEVICES: None. LUNGS: No consolidation, edema or effusion. No pneumothorax. MEDIASTINUM AND CARDIOVASCULAR STRUCTURES: There is cardiomegaly. There are sternotomy wires in place. Central airways and mediastinal contour are unremarkable. BONES AND SOFT TISSUES: Unremarkable. RAD/Chest 1 View (Portable) IMPRESSION: Cardiomegaly. Electronically Signed: Dominique Pollard MD at 11:05 EST , CC: Dr. Daniel Coffey DO; [facility] Museum Security Chief: Signed Normal [facility] Emergency Department Summary on 03-07-2024 Emergency Department Summary [facility] Records Department [address] [place] [address] Emergency Department Summary 03/07/24 MR#: [id number] Acct: [id number] Name: SYLVESTER LACY Rep #: [id number] : 1960 63 From: Daniel Coffey DO PCP: [facility] Status:DEP ER Location: ED HPI History of Present Illness Chief Complaint: Dizziness PFSH PFSH Medical History Urinary retention ELIZABETH (dyspnea on exertion) History of pulmonary embolus (PE) History of inferior wall myocardial infarction NSVT (nonsustained ventricular tachycardia) History of alcohol abuse Atherosclerosis of coronary artery of [place] heart without angina pectoris COVID-19 Hyperlipidemia Mucous cyst of digit of hand Hay fever Hemorrhoids Hypertension Home Medications ???Medication ???Instructions ???Recorded ???Last Taken ???Type aspirin 81 mg chewable tablet 81 mg PO DAILY 06/25/21 05/19/23 History multivitamin 1 tab PO DAILY 03/09/23 Unknown History rosuvastatin 10 mg tablet 40 mg PO DAILY 06/20/23 Unknown History carvedilol 25 mg tablet 25 mg PO BID #60 tabs 07/26/23 Unknown Rx amlodipine 5 mg tablet 5 mg PO DAILY 10/17/23 Unknown History tamsulosin 0.4 mg capsule (Flomax) 0.8 mg PO QHS 10/17/23 Unknown History amlodipine 5 mg tablet 10 mg (2 x 5 mg) PO DAILY 30 days 03/07/24 Unknown Rx #60 tabs ciprofloxacin HCl 500 mg tablet 500 mg PO BID 7 days #14 TABLETS 03/07/24 Unknown Rx furosemide 20 mg tablet (Lasix) 20 mg PO QODAY #7 tabs 03/07/24 Unknown Rx Allergy/AdvReac Type Severity Reaction Status Date / Time adhesive (adhesives) AdvReac Intermediate Rash Verified 03/07/24 09:28 Family History Mother CVA (cerebral vascular accident) Diabetes Surgical History S/P CABG x 5 History of coronary artery stent placement ( 01/2009) Social History Smoking Status: Former smoker how long ago did patient quit [id number] and again in 2014 alcohol intake: current Alcohol type: beer details: weekly substance use type: does not use EXAM Physical Exam Const Vital Signs: 03/07/24 09:28 03/07/24 10:28 03/07/24 11:00 Temperature 97.9 F Temperature Source Oral Pulse Rate 65 69 72 Respiratory Rate 18 16 16 Blood Pressure 184/109 H 183/103 H Blood Pressure Mean 134 129 Pulse Ox 99 97 Oxygen Delivery Method Room Air Room Air 03/07/24 12:00 03/07/24 12:15 03/07/24 13:00 Temperature Temperature Source Pulse Rate 66 69 68 Respiratory Rate 15 19 H 16 Blood Pressure 156/97 H Blood Pressure Mean 114 Pulse Ox 96 98 Oxygen Delivery Method 03/07/24 13:26 Temperature 97.9 F Temperature Source Pulse Rate 67 Respiratory Rate 16 Blood Pressure 149/100 H Blood Pressure Mean 116 Pulse Ox 99 Oxygen Delivery Method MDM MDM MDM Narrative Medical decision making narrative: HISTORY OF PRESENT ILLNESS: 63-year-old male presents with dizziness/lightheade dness actively blood pressure. Notes we checked his blood pressure work is elevated. Notes he not anything is warm did have 2 cups of coffee. Denies chest pain, shortness of breath or leg swelling. REVIEW OF SYSTEMS: Pertinent positives: Lightheadedness, dizziness Pertinent negatives: Headache, chest pain, shortness of breath, leg swelling, decreased urination PHYSICAL EXAM: Nursing triage notes reviewed, Vital signs reviewed Constitutional: please see mdm HENT: MMM Eyes: Pupils equal round and reactive to light, Extraocular muscles intact Neck: No stridor, no JVD, full neck ROM Lungs: Clear to auscultation, No wheezing or rales. No increased work of breathing, no conversational dyspnea, no accessory muscle use, no nasal flaring. No respiratory distress noted Heart: Regular rate and rhythm, No murmurs, No rubs and No gallops, 2+ distal pulses (radial, femoral, posterior tibial) in all extremities Abdomen: Soft, there is no tenderness, rigidity, rebound or guarding, no obvious peritoneal signs, no palpable pulsatile abdominal masses, no auscultated abdominal bruit : No CVAT Extremities: No edema Neuro: Alert and oriented x3, neuro exam at baseline, cranial nerves II through XII are intact. No pain with extraocular muscle movement. There is negative test of skew. 5 of 5 strength in upper and lower extremities in flexion extension. Intact sensation to light touch in upper and lower extremity dermatomes. No truncal or extremity ataxia. No dysdiadochokinesia. Normal gait. 2+ reflexes in upper and lower extremities. No meningeal signs. Negative Babinski. NIH of 0. Skin: No rash or lesions noted MEDICAL DECISION DASH (more content not included)... Normal [facility] L501.4020on 03-07-2024 TROPONIN-I HS 5 pg/mL Normal 3.0-78.0 [facility] Comment on above: Result Comment: Plea se Note: New Test Units and Gender Specific Reference Ranges. For more information see Policy Stat Procedure [place] High Sensitivity Troponin (TNIH) and attachments. Performed By: #### L 501.4020 #### [facility] [address] [place], [address] L501.5425on 03-07-2024 TROPONIN-I HS 4 pg/mL Normal 3.0-78.0 [facility] Comment on above: Order Comment: 1Y Result Comment: Plea se Note: New Test Units and Gender Specific Reference Ranges. For more information see Policy Stat Procedure [place] High Sensitivity Troponin (TNIH) and attachments. Performed By: #### L 100.0500, L501.5425, L500.2500, L503.6620 ####[facility] [address] [place], [address] Urinalysis, Completeon 03-07 BACTERIA RARE Normal None Seen [facility] Comment on above: Order Comment: OSMANY TER SPECIMEN Performed By: #### L 400.0001 #### [facility] [address] [place], [address] EPI,SQUAMOUS 0-5 SEEN Normal 0-5 [facility] Comment on above: Order Comment: OSMANY TER SPECIMEN Performed By: #### L 400.0001 #### [facility] [address] [place], [address] RBC 0-5 SEEN Normal 0-5 [facility] Comment on above: Order Comment: OSMANY TER SPECIMEN Performed By: #### L 400.0001 #### [facility] [address] [place], [address] WBC >100 SEEN Normal 0-5 [facility] Comment on above: Order Comment: OSMANY TER SPECIMEN Performed By: #### L 400.0001 #### [facility] [address] [place], [address] Mucus Ql (Urine sed) 0 SEEN Normal [facility] Comment on above: Order Comment: OSMANY TER SPECIMEN Performed By: #### L 400.0001 #### [facility] [address] [place], [place], [address] Cardiology Visit Reporton Cardiology Visit Report [facility] [address] [place], [place] [address] OFFICE VISIT Date of Service: 10/17/23 MR#: [id number] Acct: [id number] Name: SYLVESTER LACY Rep #: [id number] : 1960 Provider: MIESHA Blackwood Age/Sex: 63/M Location: [facility] Status: Signed HPI HPI History of Present Illness Details: Sylvester Lacy is a 62 year old male with a hx of coronary artery disease with RCA and PDA in 2008. He also has a history of hypertension. In 2008 he had angioplasty and stenting done of the RCA system at a hospital in [place]. At that time he was noted to have severe disease in his LAD and moderate disease in his circumflex. Patient had a stress test at the [facility] in December 2022 which demonstrated no reversible ischemia, fixed inferior defect likely represents attenuation artifact versus small possible scar. Wall motion is within normal limits. He was able to walk for 6 minutes on a Kevin protocol achieving 7 METS. He presented to see us in April and at that time was noted to have chest pain with exertion. He finally underwent a cardiac catheterization which demonstrated severe triple-vessel disease with 90% stenosis noted of all 3 vessels. His ejection fraction was preserved. He was transferred to [facility] where he underwent coronary bypass surgery x 5 on May 31. He had a CAMPBELL to the LAD, free radial from the left radial artery to the second obtuse marginal branch, saphenous vein graft to the right posterior descending artery, saphenous vein graft to the first diagonal branch, saphenous vein graft to the second diagonal branch. He tolerated the procedure well IntraOp PAM demonstrated no significant abnormalities. He has been home since June 05 and has done well. He has some problems with his urinary system. He is dealing with the [employer] regarding that. He is working out at the [employer] at work, He does not have any chest pain. He does SOB with exertion, this is not concerning. He does have some positional dizziness. He does not have any worsening shortness of breath. He is not aware of any palpitations. [facility] Intake Vital Signs 06/20/23 10:55 09/09/23 06:02 10/17/23 09:04 Height 5 ft 9 in 5 ft 9 in 5 ft 9 in Weight: 236 lb BMI 34.8 BP 131/86 H Blood Pressure Location Rt brachial Position Sitting Respiration 16 Pulse 72 Pulse Source Monitor Intake Visit Reasons: 4 M FU Automotive Instructor Required: No Accompanied by: Self Is patient in pain?: No Allergies adhesive (adhesives) Adverse Reaction (Intermediate, Verified 10/17/23 09:07) Rash Medications ???Medication ???Instructions ???Recorded ???Confirmed ???Type aspirin 81 mg chewable tablet 81 mg PO DAILY 06/25/21 10/17/23 History multivitamin 1 tab PO DAILY 03/09/23 10/17/23 History rosuvastatin 10 mg tablet 40 mg PO DAILY 06/20/23 10/17/23 History carvedilol 25 mg tablet 25 mg PO BID #60 tabs 07/26/23 10/17/23 Rx amlodipine 5 mg tablet 5 mg PO DAILY 10/17/23 10/17/23 History tamsulosin 0.4 mg capsule (Flomax) 0.8 mg PO QHS 10/17/23 10/17/23 History Ejection fraction %: 55 PFSH Medical History Urinary retention ELIZABETH (dyspnea on exertion) History of pulmonary embolus (PE) History of inferior wall myocardial infarction NSVT (nonsustained ventricular tachycardia) History of alcohol abuse Atherosclerosis of coronary artery of [place] heart without angina pectoris COVID-19 Hyperlipidemia Mucous cyst of digit of hand Hay fever Hemorrhoids Hypertension Surgical History S/P CABG x 5 History of coronary artery stent placement ( 01/2009) Family History Mother CVA (cerebral vascular accident) Diabetes Social History Smoking Status: Former smoker how long ago did patient quit [id number] and again in 2014 alcohol intake: current Alcohol type: beer details: weekly substance use type: does not use ROS Const Const: Positive for difficulty sleeping; Negative for fatigue, weakness, headache(s), frequent falls or excessive sweating Eyes Eyes: Positive for blurry vision; Negative for loss of peripheral vision, transient loss of vision, double vision or tunnel vision ENT ENT: Negative for headache(s), dizziness, Nosebleed/epistaxis or balance problems Cardio Chest Pain: No Palpitations: No Edema: Bilateral Muscle aches with walking: None Resp Respiratory: Positive for SOB with activity; Negative for SOB at rest, SOB orthopnea SOB lying down, Cough or paroxysmal nocturnal dyspnea GI GI: Positive for nausea (migraines); Negative vomiting, heartburn or black,tarry s (more content not included)... Normal [facility] Emergency Department Summary on 09-09-2023 Emergency Department Summary [facility] Records Department [address] [place] [address] Emergency Department Summary 09/09/23 MR#: [id number] Acct: [id number] Name: SYLVESTER LACY Rep #: [id number] : 1960 62 From: Christopher Montes De Oca DO PCP: [place] [facility] Status:REG ER Location: ED HPI History of Present Illness Chief Complaint: Complaint Informant: patient Narrative Narrative: Patient is a 62-year-old male with past medical history of hypertension hyperlipidemia and coronary artery disease. He states ever since May when he underwent a CABG he then developed difficulty urinating/urinary retention and performs self-catheterization 3-5 times a day. He states that he got up this morning and did a self cath and when he did so there was bright red blood with blood clots present. He states that he is not on a blood thinner nor does he have a history of bleeding disorder. He does admit to taking a baby aspirin daily. He states he has never had blood work with his self catheterizations in the past and this concerned him and therefore he comes in for evaluation. [facility] Medical History Urinary retention ELIZABETH (dyspnea on exertion) History of pulmonary embolus (PE) History of inferior wall myocardial infarction NSVT (nonsustained ventricular tachycardia) History of alcohol abuse Atherosclerosis of coronary artery of [place] heart without angina pectoris COVID-19 Hyperlipidemia Mucous cyst of digit of hand Hay fever Hemorrhoids Hypertension Home Medications ???Medication ???Instructions ???Recorded ???Last Taken ???Type aspirin 81 mg chewable tablet 81 mg PO DAILY 06/25/21 05/19/23 History ibuprofen 800 mg tablet 800 mg PO TID PRN pain 03/09/23 Unknown History multivitamin 1 tab PO DAILY 03/09/23 Unknown History rosuvastatin 10 mg tablet 40 mg PO DAILY 06/20/23 Unknown History carvedilol 25 mg tablet 25 mg PO BID #60 tabs 07/26/23 Unknown Rx Allergy/AdvReac Type Severity Reaction Status Date / Time No Known Allergies Allergy Verified 09/09/23 06:13 Family History Mother CVA (cerebral vascular accident) Diabetes Surgical History (Updated 09/09/23 @ 07:[address] Christopher Montes De Oca DO) S/P CABG x 5 History of coronary artery stent placement ( 01/2009) Social History Smoking Status: Former smoker how long ago did patient quit [id number] and again in 2014 alcohol intake: current Alcohol type: beer details: weekly substance use type: does not use ROS ROS ED Constitutional Constitutional ED: Denies chills or fever(s) Eyes Eyes: Denies change in vision ENT ENT ED: Denies sore throat Cardiovascular Cardiovascular: Denies chest pain Respiratory/Chest Respiratory/Chest: Denies cough or dyspnea Gastrointestinal Gastrointestinal: Denies abdominal pain, diarrhea, nausea or vomiting Genitourinary Genitourinary ED: Reports hematuria Musculoskeletal Musculoskeletal: Denies back pain Integumentary Denies rash Neurologic Neurologic: Denies headache(s) Hematologic/Lymphati c Hematologic/Lymphati c: Denies easy bleeding or easy bruising EXAM Physical Exam Const Vital Signs: 09/09/23 06:02 Temperature 97 F L Temperature Source Temporal Pulse Rate 70 Respiratory Rate 16 Blood Pressure 166/95 H Blood Pressure Mean 118 Pulse Ox 96 Oxygen Delivery Method Room Air Positive well nourished and well developed General Appearance ED: well developed; Negative for pallor HEENT HEENT Narrative: Normocephalic atraumatic Eyes PERRL and EOMs intact bilaterally General Eye ED: Negative for pale conjunctiva or scleral icterus Neck supple Resp normal respiratory effort and clear to auscultation bilaterally Cardio regular rate and regular rhythm GI normal to inspection, nondistended, normoactive bowel sounds, non-tender, non-distended and no masses GI Narrative: No organomegaly to suggest urinary retention No voluntary guarding or rigidity pulsatile mass or peritoneal signs Auscultation: normoactive bowel sounds Palpation: soft Narrative: No blood or discharge from the urethral meatus no testicular swelling no secondary soft tissue changes to suggest Charline's gangrene Back/Spine no CVA tenderness Extremity normal to inspection Neuro oriented x3, CN's II-XII intact bilaterally and no sensory deficits noted Sensorium / Orientation: alert Motor Exam: strength 5/5 throughout Psych mental status grossly normal Skin no rashes or lesions noted General Skin Exam: Negative for jaundice or pallor MDM MDM MDM Narrative Medical decision making narrative: Patient arrived to the ER mildly hyperte (more content not included)... Normal [facility] Urinalysis, Completeon 09-08 RBC > 100 SEEN Normal 0-5 [facility] Comment on above: Order Comment: COLOR OF URINE MAY AFFECT DIPSTICK RESULTS. PARKING METER SERVICER TO SPECIFY Result Comment: Micr oscopic field is filled. Other elements may be obscured. Performed By: #### L 400.0001 #### [facility] [address] [place], [address] BACTERIA 0 SEEN Normal None Seen [facility] Comment on above: Order Comment: COLOR OF URINE MAY AFFECT DIPSTICK RESULTS. PARKING METER SERVICER TO SPECIFY Performed By: #### L 400.0001 #### [facility] [address] [place], [address] EPI,SQUAMOUS 0 SEEN Normal 0-5 [facility] [facility] Comment on above: Order Comment: COLOR OF URINE MAY AFFECT DIPSTICK RESULTS. PARKING METER SERVICER TO SPECIFY Performed By: #### L 400.0001 #### [facility] [address] [place], [address] Mucus Ql (Urine sed) 0 SEEN Normal [facility] Comment on above: Order Comment: COLOR OF URINE MAY AFFECT DIPSTICK RESULTS. PARKING METER SERVICER TO SPECIFY Performed By: #### L [id number] #### [facility] [address] [place], [address] WBC 0 SEEN Normal 0-5 [facility] Comment on above: Order Comment: COLOR OF URINE MAY AFFECT DIPSTICK RESULTS. PARKING METER SERVICER TO SPECIFY Performed By: #### L [id number] #### [facility] [address] [place], [address] Chest PA and Lateralon 08-29 Chest PA and Lateral [facility] Imaging Services [address] [place] [address] Chest PA and Lateral MR#: [id number] Acct: [id number] Name: VIKASHMICHFRANCISSYLVESTER VERNON Rep #: [id number] : 1960 Earl 62 From: Faizan Leslie DO PCP: [facility] Status: REG CLI Study: Chest PA and Lateral Date of Exam: 08/30/23 Exam# [id number] Ordering Dr: Michelle Davies PA [id number] INDICATION: CP EXAMINATION/TECHNIQU E: X-RAY - XR Chest 2 Views COMPARISON: ____ FINDINGS: LINES/DEVICES: Sternotomy wires are present. LUNGS: No consolidation, edema or effusion. No pneumothorax. MEDIASTINUM AND CARDIOVASCULAR STRUCTURES: Cardiac silhouette not enlarged. Central airways and mediastinal contour are unremarkable. BONES AND SOFT TISSUES: Unremarkable. RAD/Chest PA and Lateral IMPRESSION: No radiographic evidence of acute cardiopulmonary disease. Electronically Signed: Faizan Leslie DO at 16:27 EDT , CC: MIESHA Omer; [facility] Museum Security Chief: Signed Normal [facility] Absolute lymphocyte countOrd ered By: Michelle Davies on 07-24-2023 Lymphocytes Auto (Unsp spec) [#/Vol] 1.63 10*3/uL 0.83-4.51 [facility] Automated lymphocyte count a s percentage of total leukocytesOrdered By: Michelle Davies on 07-24-2023 Lymphocytes/100 WBC Auto (Unsp spec) 22.4 % 19-41 [facility] Basophil percentageOrdered B y: Michelle Davies on 07-24-2023 Basophils/100 WBC (Bld) 1.0 % 0-1 [facility] Chloride [Moles/Vol] 107 mmol/L 98-107 [facility] Eosinophils/100 WBC (Bld) 3.4 % 0-5 [facility] Glucose [Mass/Vol] 93 mg/dL 74-106 [facility] Hemoglobin (Bld) [Mass/Vol] 12.4 g/dL 13.0-16.5 [facility] Monocytes/100 WBC (Bld) 8.8 % 0-10 [facility] Neutrophils (Bld) [#/Vol] 4.7 10*3/uL 2.0-7.7 [facility] Neutrophils/100 WBC (Bld) 64.1 % 47-70 [facility] Potassium [Moles/Vol] 4.5 mmol/L 3.5-5.1 [facility] Sodium [Moles/Vol] 141 mmol/L 136-145 [facility] WBC (Bld) [#/Vol] 7.3 10*3/uL 4.4-11.0 [facility] Determination of erythrocyte mean corpuscular volume (MCV)Ordered By: Michelle Davies on 07-24-2023 MCV (RBC) [Entitic vol] 89.7 fL 80-94 [facility] Erythrocyte distribution wid th ratioOrdered By: Michelle Davies on 07-24-2023 Erythrocyte distribution width (RBC) [Ratio] 14.2 % 11.6-14.6 [facility] Erythrocyte distribution wid th standard deviationOrdered By: Michelle Davies on 07-24-2023 Erythrocyte distribution width (RBC) [Entitic vol] 46.8 fL 35.1-43.9 [facility] Hematocrit Auto (Bld) [Volum e fraction]Ordered By: Michelle Davies on 07-24-2023 Hematocrit (Bld) [Volume fraction] 39.4 % 40-54 [facility] Immature granulocytes/100 WB C Auto (Bld)Ordered By: Michelle Davies on 07-24-2023 Immature granulocytes/100 WBC (Bld) 0.300 % 0.0-0.9 [facility] Comment on above: IG% - Immature Granu locytes (promyelocytes, myelocytes and metamyelocytes) > 1% indicates that a LEFT SHIFT is Present. Laboratory - Chemistry and C hemistry - challengeOrdered By: Michelle Davies on 07-24-2023 CO2 [Moles/Vol] 29.0 mmol/L 21.0-32.0 [facility] Magnesium [Mass/Vol] 2.2 mg/dL 1.6-2.6 [facility] Urea nitrogen/Creatinine [Mass ratio] 23.2 mg/mg 10-20 [facility] - Hematology and Cell countsOrdered By: Michelle Davies on 07-24-2023 MCH (RBC) [Entitic mass] 28.2 pg 27.0-32.0 [facility] MCHC (RBC) [Mass/Vol] 31.5 g/dL 32-36 [facility] Nucleated RBC/100 WBC (Bld) [Ratio] 0 % 0-5 [facility] Platelet mean volume (Bld) [Entitic vol] 8.8 fL 6.2-12.0 [facility] Platelets (Bld) [#/Vol] 213 10*3/uL 150-450 [facility] No Panel InformationOrdered By: Michelle Davies on 07-24-2023 Estimated GFR (MDRD) Amer 115 mL/min >60 [facility] Comment on above: GFR Calc Estimated GFR (MDRD) Non-Af Amer 95 mL/min >60 [facility] Comment on above: Non- GFR Calc RBC Auto (Bld) [#/Vol]Ordere d By: Michelle Davies on 07-24-2023 RBC (Bld) [#/Vol] 4.39 10*6/uL 4.6-6.2 [facility] Serum or plasma calcium yaya urement (mass/volume)Ordered By: Michelle Davies on 07-24-2023 Calcium [Mass/Vol] 9.3 mg/dL 8.5-10.1 [facility] Serum or plasma creatinine m easurement (mass/volume)Ordered By: Michelle Davies on 07-24-2023 Creatinine [Mass/Vol] 0.86 mg/dL 0.70-1.30 [facility] Comment on above: The validity of the calculated GFR & GFRAA in patients over 70 years has not been determined. Clinical correlation is essential. Serum or plasma thyroid stim ulating hormone (TSH) measurement (units/volume)Ordered By: Michelle Davies on 07-24-2023 TSH Qn 1.75 uIU/mL 0.358-3.74 [facility] Serum or plasma urea nitroge n measurement (mass/volume)Ordered By: iMchelle Davies on 07-24-2023 Urea nitrogen [Mass/Vol] 20 mg/dL 7-18 [facility] Thin prep Papanicolaou smear with manual screeningOrdered By: Michelle Davies on 07-24-2023 Thin prep Papanicolaou smear with manual screening 5 5-15 [facility] Office Visiton 07-20-2023 Follow-up visit [id number] Sylvester Lacy 1960 M Date Provider Department Center 07/20/2023 [id number] LOPES [facility] CT None Family History Problem Relation Age of Onset Diabetes Mother Family Status - Relation Status Age at Mother Level of Service:20134 ME POSTOP FOLLOW UP VISIT RELATED TO ORIGINAL PX Reason for Visit and Comments: Post-op [483] Normal [facility] PATINSon 07-20-2023 PATINS Weight restriction measures 5-8 weeks from date of surgery- 20lbs weight restriction approximate end date: 07/26/23 Normal [facility] Progress Noteon 07-20-2023 Progress Note [facility] Medical Group: [facility] [address] [facility] [address] Dept: [phone] Dept Loc: [phone] Visit type: Established patient - in person Surgery/Procedure: 05/31/23: CABGx5 (CAMPBELL to LAD, Free left radial to OM2, SVG to right pDA, SVG to Diag1, SVG to Diag2) left radial harvest R leg EVH and PAM with Dr. 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 -Physical therapy as outlined in discharge instructions: ok to drive ok for cardiac rehab -Acute Post-Operative Pain Tx plan: OTC as needed Weight restriction measures 5-8 weeks from date of surgery- 20lbs weight restriction approximate end date: 07/26/23 [facility] Follow up as needed or if concerns arise Treatment Team: PCP: Crissy Engle DO Cardiology: Dr. Gaines [facility] Subjective HPI: 62 y.o. 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 Pmhx including RCA and PDA stents in 2008, HTN, Hx of NSVT, Hx of PE, former tobacco use and current ETOH use. He was see in OP setting 05/31/23 and noted to have unstable angina with palpitations and he was direct admitted for urgent CABG. Preoperative testing was completed and he consented to surgical revascularization. Of note patient lives alone at home. 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 Patient underwent surgery on 06/01/23. Patient did well post-op, only complication was urinary retention for which a isaac was re-placed and Urology consulted. A referral was placed to Urology in [place] for him to follow up with. He was discharged home on POD#05. 06/14/23: Patient presents today for postop open heart follow-up. He is doing well postoperatively has been walking multiple times a day following midsternal precautions. He does want to drive (discussed with surgeon), recommended not driving until 3 weeks from surgery. Risks discussed with driving earlier. Patient verbalized understanding. Surgical incisions healing appropriate no signs of infection or drainage noted. Patient still has Isaac catheter noted dark urine yesterday has cleared since has follow-up scheduled with urology due [place] urinary retention [place] 14 through the [place]. Patient would like to establish with Dr. Gaines at [facility] will forward appropriate documents to his office after this visit. Pain is controlled no other needs at this time patient to call with any question concerns we will plan virtual visit in 3 weeks. 07/06/23: Called patient for postop follow-up. He is doing relatively well has had follow-up with urology and cardiology. Urology pulled isaac but the patient is still straight cathing 3 times a day. He is also taking his Flomax which she does not think is working. Stated that urology might put him on a different medication. Care of Isaac per urology. He is followed up with cardiology no changes to medications. He is taking all medications as prescribed. Incisions are healing appropriately no signs of infection. Does have some numbness in his left chest wall area which I explained to him is likely related to CAMPBELL harvest or retractors used during case. Numbness is improving and EVH site can take up to 3 months to go away patient did admit to not following midsternal precautionscompletel y as he was out taking a blueberry lott up the other day. Explained risks involved and not following midsternal precautions he verbalized understanding. No other needs at this time he will call with any questions or concerns no scheduled follow-up needed will follow-up as needed 4/16/24: Seen by [facility] - started on Abx due to ?sternal infection - opening at top of incision. Patient also noticing Popping in chest - inperson visit made 07/20/23: Patient presents today for postop follow-up. Had called in with complaints of sternal popping pain and open midsternal incision. Per patient cardiology placed on 10-day course of antibiotics and sent cultures. He will finish 10-day course of antibiotics tomorrow. Sternal clicking/popping that he had previously described has not happened in some time. He has no pain currently right now. Incision assessed palpated no pain with palpitation sternum does not feel dislodged. Discussed midsternal precautions weight restrictions. Patient admits to not following midsternal precautions completely at times. Stressed the imp (more content not included)... [facility] Anaerobic cultureOrdered By: Michelle Davies on 07-17-2023 Bacteria identified Anaer cx Nom (Unsp spec) No anaerobic bacteria isolated. [facility] Bacteria identified Cx Nom ( Wound)Ordered By: Michelle Davies on 07-17-2023 Wound Culture Staphylococcus epidermidis [facility] Wound Culture Kocuria rhizophila [facility] Gram stain for investigation of transfusion reactionOrdered By: Michelle Davies on 07-17-2023 Microscopic observation Gram stain Nom (Unsp spec) [facility] 36on 07-11-2023 36 LVM to schedule appointment. [facility] 36 Can you schedule inperson visit with me next week. Thanks [facility] 36 Pt called and stated he saw Cardiology at [place] who noticed an opening at the top of pt sternum. There was concern for infection so pt was put on antibiotics. He also states that he feels a popping in his chest when he moves his hips. He denies any pain. Please advise. 05/31/23: CABGx5 (CAMPBELL to LAD, Free left radial to OM2, SVG to right pDA, SVG to Diag1, SVG to Diag2) left radial harvest R leg EVH and PAM with Dr. 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 He is doing relatively well has had follow-up with urology and cardiology. Urology pulled isaac but the patient is still straight cathing 3 times a day. He is also taking his Flomax which she does not think is working. Stated that urology might put him on a different medication. Care of Isaac per urology. He is followed up with cardiology no changes to medications. He is taking all medications as prescribed. Incisions are healing appropriately no signs of infection. Does have some numbness in his left chest wall area which I explained to him is likely related to CAMPBELL harvest or retractors used during case. Numbness is improving and EVH site can take up to 3 months to go away patient did admit to not following midsternal precautionscompletel y as he was out taking a blueberry lott up the other day. Explained risks involved and not following midsternal precautions he verbalized understanding. No other needs at this time he will call with any questions or concerns no scheduled follow-up needed will follow-up as needed Normal [facility] Progress Noteon 07-06-2023 Progress Note [facility] Medical Group: [facility] [address] [facility] [address] Dept: [phone] Dept Loc: [phone] Visit type: Established patient - Virtual Surgery/Procedure: 05/31/23: CABGx5 (CAMPBELL to LAD, Free left radial to OM2, SVG to right pDA, SVG to Diag1, SVG to Diag2) left radial harvest R leg EVH and PAM with Dr. 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 -Surgical Incisions: Per patient healing appropriately, well approximated, no s/s of infection -Physical therapy as outlined in discharge instructions: driving, starts cardiac rehab soon -Acute Post-Operative Pain Tx plan: OTC as needed -Wires Only Weight restriction measures 5-8 weeks from date of surgery- 20lbs weight restriction approximate end date: 07/26/23 Disposition: As needed Patient verbalized understanding of plan and stated they would call if any questions or concerns arise. Treatment Team: PCP: Crissy Engle DO Cardiology: Dr. Gaines [place]: [place] Patient was seen today via Telehealth by agreement and consent. I used the following Telehealth technology: Audio capability only. Total length of call 14 minutes. The patient was offered and advised video for a more comprehensive evaluation, but the patient declined or was unable to use video. Patient location: Patient Location: Home. This patient encounter is appropriate and reasonable under the circumstances: patient request . The patient has been advised of the potential risks and limitations of this mode of treatment (including but not limited to the absence of in-person examination) and has agreed to be treated in a remote fashion in spite of them. Any and all of the patient's/patient's family's questions on this issue have been answered and I have made no promises or guarantees to the patient. The patient has also been advised to contact this office for worsening conditions or problems, and seek emergency medical treatment and/or call 911 if the patient deems either necessary. The patient stated that they are currently in the [facility]. If the patient is a minor, permission has been obtained by the parent or guardian for the patient to receive medical care at this visit. Patient identification was verified at the start of the visit: yes Total time spent on this encounter: 19 Subjective HPI: 62 y.o. 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 Pmhx including RCA and PDA stents in 2008, HTN, Hx of NSVT, Hx of PE, former tobacco use and current ETOH use. He was see in OP setting 05/31/23 and noted to have unstable angina with palpitations and he was direct admitted for urgent CABG. Preoperative testing was completed and he consented to surgical revascularization. Of note patient lives alone at home. 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 Patient underwent surgery on 06/01/23. Patient did well post-op, only complication was urinary retention for which a isaac was re-placed and Urology consulted. A referral was placed to Urology in [place] for him to follow up with. He was discharged home on POD#05. 06/14/23: Patient presents today for postop open heart follow-up. He is doing well postoperatively has been walking multiple times a day following midsternal precautions. He does want to drive (discussed with surgeon), recommended not driving until 3 weeks from surgery. Risks discussed with driving earlier. Patient verbalized understanding. Surgical incisions healing appropriate no signs of infection or drainage noted. Patient still has Isaac catheter noted dark urine yesterday has cleared since has follow-up scheduled with urology due [place] urinary retention [place] Patient would like to establish with Dr. Gaines at [facility] will forward appropriate documents to his office after this visit. Pain is controlled no other needs at this time patient to call with any question concerns we will plan virtual visit in 3 weeks. 07/06/23: Called patient for postop follow-up. He is doing relatively well has had follow-up with urology and cardiology. Urology pulled isaac but the patient is still straight cathing 3 times a day. He is also taking his Flomax which she does not think is working. Stated that urology might put him on a different medication. Care of Isaac per urology. He is followed up with cardiology no changes to medications. He is taking all medications as prescribed. Incisions are healing appropriately no signs of infection. Does have some numbness in his left chest wall area which I explained to him is likely related to CAMPBELL harvest or retractors used during case. Num (more content not included)... Normal [facility] 36on 06-28-2023 36 Called patient, see telephone encounter. 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 Huang -Ibuprofen 800mg TID, recommend adding Robaxin 750mg TID PRN for muscle spasms/shooting pain in leg. -Pain in leg seems to be related to irritated/inflamed nerves. Unsure if related to EVH harvest or from positioning while in OR or in hospital or just from lower back tightness. -Numbness, tingling, cold, loss of color in hands sounds like Raynaud's syndrome. Difficult to assess over phone. Not related to arterial harvest. Recommend follow up with PCP. -OK to return to work, as long as he can delegate heavy lifting. Plan: POD#28 Day from Discharge (06/06/2023) #22 Weight restriction measures 1-4 weeks from date of surgery- 10lbs weight restriction: 06/28/23 5-8 weeks from date of surgery- 20lbs weight restriction approximate end date: 07/26/23 Disposition: Follow up phone call scheduled with CT Surgery on 07/06/23. Patient verbalized understanding of plan and stated they would call if any questions or concerns arise. Treatment Team: PCP: Crissy Engle DO Subjective HPI: 62 y.o. 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 Pmhx including RCA and PDA stents in 2008, HTN, Hx of NSVT, Hx of PE, former tobacco use and current ETOH use. He was see in OP setting 05/31/23 and noted to have unstable angina with palpitations and he was direct admitted for urgent CABG. Preoperative testing was completed and he consented to surgical revascularization. Of note patient lives alone at home. 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 Patient underwent surgery on 06/01/23. Patient did well post-op, only complication was urinary retention for which a isaac was re-placed and Urology consulted. A referral was placed to Urology in [place] for him to follow up with. He was discharged home on POD#05. 06/14/23: Patient presents today for postop open heart follow-up. He is doing well postoperatively has been walking multiple times a day following midsternal precautions. He does want to drive (discussed with surgeon), recommended not driving until 3 weeks from surgery. Risks discussed with driving earlier. Patient verbalized understanding. Surgical incisions healing appropriate no signs of infection or drainage noted. Patient still has Isaac catheter noted dark urine yesterday has cleared since has follow-up scheduled with [place]rology [place] Patient would like to establish with Dr. Gaines at [facility] will forward appropriate documents to his office after this visit. Pain is controlled no other needs at this time patient to call with any question concerns we will plan virtual visit in 3 weeks. 06/28/23: Patient called in to office today with a couple of questions he wanted to discuss. He is experiencing numbness and tingling in his R leg, mostly in the anterior and lateral portion of his thigh. States it started when he was in the hospital. Possibly could be related to EVH harvest but typically when related to the EVH harvest, the numbness and tingling and pain is located around the sites on the medial portion of the leg, near incisions. States that sometimes he is awaken from sleep with a sharp shooting pain in this area. Seems to be improved with ibuprofen use. Otherwise post-op pain seems to be well controlled. He wants to stop taking acetaminophen. He has been experiencing intermittent sensation inbilateral hands, where his hands become numb, tingly and cold. States they also turn white and bluish. Sometimes happens only on one side or the other or both at the same time. Seems to happen more in his right hand (opposite radial harvest). Lastly, patient wanted to ask about returning to work. 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 Discussed with him weight restrictions and where he currently falls in recovery. Overall patient is healing and recovering well from surgery. No Known Allergies Outpatient Medications Prior to Visit Medication Sig Dispense Refill acetaminophen (Tylenol) 500 MG tablet Take 2 tablets (1,000 mg) by mouth in the morning and 2 tablets (1,000 mg) at noon and 2 tablets (1,000 mg) before bedtime. amLODIPine (Norvasc) 2.5 MG tablet Take 1 tablet (2.5 mg) by mouth daily. 30 tablet 0 aspirin 81 MG EC tablet Take 81 mg by mouth daily. carvedilol (Coreg) 12.5 MG tablet Take 1 tablet (12.5 mg) by mouth in the morning and 1 tablet (12.5 mg) in the (more content not included)... Normal [facility] 36 Patient called in wanting a work release dated for MondayJuly 02 with no restrictions. Also would like message about leg pain addressed. In addition he is also c/o hand going numb and turning a white to blue color and this of concern to him if this could be addressed as well. Please call [facility] 36on 06-27-2023 36 Pt states he is experiencing intermittent stabbing pain and continuous heaviness on his right outer thigh, on EVH leg. Pt is currently taking Tylenol 1000 mg BID, Motrin 800 mg BID, Motrin 1600 mg at bedtime. Pt states the pain is not managed. Pt denies any redness, swelling, or fevers. Pt also denies any sternum pain. Advised pt of post op pain management listed below. Pt verbalizes understanding. Pt states he feels the stabbing pain has gotten worse and more frequent in the past week. Please advise. 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 He is doing well postoperatively has been walking multiple times a day following midsternal precautions. He does want to drive (discussed with surgeon), recommended not driving until 3 weeks from surgery. Risks discussed with driving earlier. Patient verbalized understanding. Surgical incisions healing appropriate no signs of infection or drainage noted. Patient still has Isaac catheter noted dark urine yesterday has cleared since has follow-up scheduled with urology due to urinary retention July 14 through the [place]. Patient would like to establish with Dr. Gaines at [facility] will forward appropriate documents to his office after this visit. Pain is controlled no other needs at this time patient to call with any question concerns we will plan virtual visit in 3 weeks. Post-Operative Pain Management: Over The Counter-Tylenol (acetaminophen) 500 mg 1-2 tablets every 6 hours. No more than 4,000 mg in 24 hour period. Over The Counter-Motrin (ibuprofen) 200-400 mg by mouth every 4-6 hours (or) 600-800mg every 8 hours. No more than 3,200 mg per day. Over The Counter-pain patches (Salon pas) may be used as needed next to incision but not directly on your incision. Ice packs may be applied for 20 minutes, then off for at least 20 minutes before reapplying. Normal [facility] 36 Terry called in and is having some pain in his left hip to knee on the outside. Feels like it falls asleep and then had stabbing pain. Wakes him from his sleep. Please call him back to discuss. Normal [facility] Office Visiton 06-14-2023 Follow-up visit [id number] Sylvester Lacy 1960 M Date Provider Department Center 06/14/2023 [id number] LOPES [facility] A[facility] CT None Family History Problem Relation Age of Onset Diabetes Mother Family Status - Relation Status Age at Mother Level of Service:98349 ME POSTOP FOLLOW UP VISIT RELATED TO ORIGINAL PX Reason for Visit and Comments: Post-op [483] Normal [facility] PATINSon 06-14-2023 PATINS Yes weight restriction measures 1-4 weeks from date of surgery- 10lbs weight restriction: 06/28/23 5-8 weeks from date of surgery- 20lbs weight restriction approximate end date: 07/26/23 [facility] Progress Noteon 06-14-2023 Progress Note [facility] Medical Group: [place] [employer] [place] [id number] Dept: [phone] Dept Loc: [phone] Visit type: Established patient - in person Surgery/Procedure: 05/31/23: CABGx5 (CAMPBELL to LAD, Free left radial to OM2, SVG to right pDA, SVG to Diag1, SVG to Diag2) left radial harvest R leg EVH and PAM with Dr. 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 Hx NSVT HLD HTN ETOH use Urinary retention Former Tobacco use Plan: POD#14 Day from Discharge (06/06/2023) #8 -Reviewed current meds Continue as ordered: ASA, statin, BB Amlodipine for radial arter graft for 30 days -Isaac per Urology - appointment scheduled for July 14 -Surgical Incisions: healing appropriately, well approximated, no s/s of infection -Physical therapy as outlined in discharge instructions: not ready to drive not ready for cardiac rehab Drive in one month from surgery -Acute Post-Operative Pain Tx plan: OTC as needed -Wires Only Weight restriction measures 1-4 weeks from date of surgery- 10lbs weight restriction: 06/28/23 5-8 weeks from date of surgery- 20lbs weight restriction approximate end date: 07/26/23 Treatment Team: PCP: Crissy Engle DO Cardiology: Dr. Gaines [place]: [place] Subjective HPI: 62 y.o. 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 Pmhx including RCA and PDA stents in 2008, HTN, Hx of NSVT, Hx of PE, former tobacco use and current ETOH use. He was see in OP setting 05/31/23 and noted to have unstable angina with palpitations and he was direct admitted for urgent CABG. Preoperative testing was completed and he consented to surgical revascularization. Of note patient lives alone at home. 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 Patient underwent surgery on 06/01/23. Patient did well post-op, only complication was urinary retention for which a isaac was re-placed and Urology consulted. A referral was placed to Urology in [place] for him to follow up with. He was discharged home on POD#05. 06/14/23: Patient presents today for postop open heart follow-up. He is doing well postoperatively has been walking multiple times a day following midsternal precautions. He does want to drive (discussed with surgeon), recommended not driving until 3 weeks from surgery. Risks discussed with driving earlier. Patient verbalized understanding. Surgical incisions healing appropriate no signs of infection or drainage noted. Patient still has Isaac catheter noted dark urine yesterday has cleared since has follow-up scheduled with urology due to urinary retention July 14 through the [place]. Patient would like to establish with Dr. Gaines at [facility] will forward appropriate documents to his office after this visit. Pain is controlled no other needs at this time patient to call with any question concerns we will plan virtual visit in 3 weeks. Review of Systems Constitutional: Negative for diaphoresis, fatigue and fever. Respiratory: Negative for cough, shortness of breath and wheezing. Cardiovascular: Negative for chest pain, palpitations and leg swelling. Gastrointestinal: Negative for abdominal distention, constipation and diarrhea. Skin: Negative for color change, pallor and rash. Objective Vitals: 06/14/23 0940 BP: 117/79 Pulse: 85 Wt Readings from Last 3 Encounters: 06/14/23 230 lb (104 kg) 06/06/23 233 lb 7.5 oz (106 kg) 05/31/23 245 lb (111 kg) Physical Exam Cardiovascular: Rate and Rhythm: Normal rate and regular rhythm. Heart sounds: Normal heart sounds. Pulmonary: Effort: Pulmonary effort is normal. Breath sounds: Normal breath sounds. Abdominal: General: Bowel sounds are normal. Palpations: Abdomen is soft. There is no mass. Tenderness: There is no abdominal tenderness. Hernia: No hernia is present. Skin: General: Skin is warm and dry. Comments: Surgical Incisions: well approximate; clean dry with no drainage noted. Surrounding skin no redness, warmth, or signs of infection noted. Neurological: Mental Status: He is alert and oriented to person, place, and time. Labs/Imaging/Testing : reviewed EMR, see A&P for pertinent diagnostic results related to office visit Disclaimer INFORMED CONSENT:The nature and purpose of the proposed treatment or procedure have been discussed. The risks and benefits of the proposed treatment or procedures have been reviewed. Alternatives have been reviewed in addition to the risks and benefits of not receiving treatments or undergoing procedures. Pursuant to this discussion, the patient agrees to undergo the proposed treatment or procedure. Captured images seen in this note from are not a substitute for a comprehensive interpretation of the entire data set as reflected by the interpreting physician with regard to radiology, echocardiography, and other diagnostic images. This note may have been dictated usin (more content not included)... [facility] 36on 06-09-2023 36 Patient called in and is experiencing some chest discomfort. He said it comes and goes, not sure if he is over doing it. Nervous due to living alone and worried something may happen. Please call him back to discuss. [phone] [facility] CARECOORDon 06-08-2023 [facility] Patient Choice Patient Name: SYLVESTER LACY Date of : 1960 [facility] [id number] 06-06-2023 [id number] Reached out to [facility] on 06/07/23 they received auth from [place] to accept case. Normal [facility] BASIC METABOLIC PANELon 05-25 Anion gap [Moles/Vol] 5 mmol/L Normal 3-13 [facility] Comment on above: Performed By: #### L AB15 ####Line Manager: ALONZO ALMODOVAR ([id number])[facility] [place] [address] Calcium [Mass/Vol] 8.8 mg/dL Normal 8.4-10.4 [facility] Comment on above: Performed By: #### L AB15 ####Line Manager: ALONZO ALMODOVAR ([phone])[facility] [place] [address] Chloride [Moles/Vol] 102 mmol/L Normal 98-107 [facility] Comment on above: Performed By: #### L AB15 ####Line Manager: ALONZO ALMODOVAR ([phone])[facility] [place] [address] CO2 [Moles/Vol] 27 mmol/L Normal 22-30 [facility] Comment on above: Performed By: #### L AB15 ####Line Manager: ALONZO ALMODOVAR ([phone])[facility] [place] [address] Creatinine [Mass/Vol] 0.67 mg/dL Normal 0.66-1.25 [facility] Comment on above: Performed By: #### L AB15 ####Line Manager: ALONZO ALMODOVAR ([id number])[facility] [place] [address] [place] GLOMERULAR FILTRATION RATE ML/MIN/1.73 SQ M.PREDICTED >90.0 Normal >60.0 [facility] Comment on above: Result Comment: Calc ulation based on the Chronic Kidney Disease Epidemiology Collaboration (CKD-EPI) equation refit without adjustment for race Performed By: #### L AB15 ####Line Manager: ALONZO ALMODOVAR ([id number])[facility] [place] [address] Glucose [Mass/Vol] 109 mg/dL High 70-100 [facility] Comment on above: Performed By: #### L AB15 ####Line Manager: ALONZO ALMODOVAR ([id number])[facility] [place] [address] Potassium [Moles/Vol] 4.4 mmol/L Normal 3.5-5.1 [facility] Comment on above: Performed By: #### L AB15 ####Line Manager: ALONZO ALMODOVAR ([id number])[facility] [place] [address] Sodium [Moles/Vol] 135 mmol/L Normal 135-145 [facility] Comment on above: Performed By: #### L AB15 ####Line Manager: ALONZO ALMODOVAR ([id number])[facility] [place] [address] Urea nitrogen [Mass/Vol] 20 mg/dL Normal 9-20 [facility] Comment on above: Performed By: #### L AB15 ####Line Manager: ALONZO ALMODOVAR ([phone])[facility])[address] [place] [address] Basic metabolic 1998 panelon 06-06-2023 Anion gap [Moles/Vol] 5 mmol/L 3 - 13 mmol/L [facility] Calcium [Mass/Vol] 8.8 mg/dL 8.4 - 10. 4 mg/dL [facility] Chloride [Moles/Vol] 102 mmol/L 98 - 10 7 mmol/L [facility] CO2 [Moles/Vol] 27 mmol/L 22 - 30 mmol/L [facility] Creatinine [Mass/Vol] 0.67 mg/dL 0.66 - 1.25 mg/dL [facility] GFR/1.73 sq M.predicted MDRD (S/P/Bld) [Vol rate/Area] - PINF [facility] Comment on above: Calculation based on the Chronic Kidney Disease Epidemiology Collaboration (CKD-EPI) equation refit without adjustment for race Glucose [Mass/Vol] 109 mg/dL High 70 - 100 mg/dL [facility] Interpretation and review of laboratory results Abnormal [facility] Potassium [Moles/Vol] 4.4 mmol/L 3.5 - 5.1 mmol/L [facility] Sodium [Moles/Vol] 135 mmol/L 135 - 145 mmol/L [facility] Urea nitrogen [Mass/Vol] 20 mg/dL 9 - 20 mg/d L [facility] CARECOORDon 06-06-2023 NATHANIEL Spoke with patient at bedside, discussed BETH enriquez currently working with [facility] to obtain [place] auth for home care. No further discharge needs expressed. Normal [facility] CBC (HEMOGRAM)on 06-06-2023 Erythrocyte distribution width (RBC) [Ratio] 14.0 % Normal 11.5-15.0 [facility] Comment on above: Performed By: #### L AB294 ####Line Manager: ALONZO ALMODOVAR ([id number])[address] Hematocrit (Bld) [Volume fraction] 29.9 % Low 40.0-52.0 [facility] Comment on above: Performed By: #### L AB294 ####Line Manager: ALONZO ALMODOVAR ([id number])[address] Hemoglobin (Bld) [Mass/Vol] 9.9 g/dL Low 13.0-18.0 [facility] Comment on above: Performed By: #### L AB294 ####Line Manager: ALONZO ALMODOVAR ([phone])[facility])[address] [place] [address] MCH (RBC) [Entitic mass] 28.8 pg Normal 26.0-34.0 [facility] Comment on above: Performed By: #### L AB294 ####Line Manager: ALONZO ALMODOVAR ([id number])[facility])[address] [place] [address] MCHC 33.1 % Normal 30.5-36.0 [facility] Comment on above: Performed By: #### L AB294 ####Line Manager: ALONZO ALMODOVAR ([phone])[facility] [place] [address] MCV (RBC) [Entitic vol] 86.9 fL Normal 77.0-99.0 S [facility] Comment on above: Performed By: #### L AB294 ####Line Manager: ALONZO ALMODOVAR ([phone])[facility] [place] [address] Platelet mean volume (Bld) [Entitic vol] 9.4 fL Normal 9.0-12.7 [facility] Comment on above: Performed By: #### L AB294 ####Line Manager: ALONZO ALMODOVAR ([id number])[facility] [place] [address] Platelets (Bld) [#/Vol] 196 10*3/uL Normal 140-440 [facility] Comment on above: Performed By: #### L AB294 ####Line Manager: ALONZO ALMODOVAR ([id number])[facility] [place] [address] RBC (Bld) [#/Vol] 3.44 10*6/uL Low 4.40-5.90 [facility] Comment on above: Performed By: #### L AB294 ####Line Manager: ALONZO ALMODOVAR ([id number])[facility] [place] [address] WBC (Bld) [#/Vol] 6.0 10*3/uL Normal 3.6-10.7 [facility] Comment on above: Performed By: #### L AB294 ####Line Manager: ALONZO ALMODOVAR ([id number])[facility])[address] [place] [address] CBC panel Auto (Bld)on 06-05 Erythrocyte distribution width (RBC) [Ratio] 14.0 % 11.5 - 15.0 % [facility] Hematocrit (Bld) [Volume fraction] 29.9 % Low 40.0 - 52.0 % [facility] Hemoglobin (Bld) [Mass/Vol] 9.9 g/dL Low 13.0 - 18.0 g/dL [facility] Interpretation and review of laboratory results Abnormal [facility] MCH (RBC) [Entitic mass] 28.8 pg 26. 0 - 34.0 pg [facility] MCHC (RBC) [Mass/Vol] 33.1 % 30.5 - 36.0 % [facility] MCV (RBC) [Entitic vol] 86.9 fL 77.0 - 99.0 fL [facility] Platelet mean volume (Bld) [Entitic vol] 9.4 fL 9.0 - 12.7 fL [facility] Platelets (Bld) [#/Vol] 196 10*3/uL 140 - 440 10*3/uL [facility] RBC (Bld) [#/Vol] 3.44 10*6/uL Low 4.40 - 5.9 0 10*6/uL [facility] WBC (Bld) [#/Vol] 6.0 10*3/uL 3.6 - 10.7 10*3/uL [facility] Progress Noteon 06-06-2023 Progress Note Nutrition Note Type and Reason for Visit: Reassess Nutrition Recommendations/Plan : Continue diet as ordered Continue ONS Pt received diet education as described in assessment RD will continue to monitor and follow weekly Diet Education: Educated on heart healthy diet Learners: Patient Readiness: Acceptance Method: Explanation and Handout Response: Verbalizes Understanding Contact name and number provided. 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 He is observed dressed and ready for discharge. Pt is agreeable to diet education at this time. RD reviewed heart healthy diet recommendations including increasing fiber, vegetables, and whole fruit intake, avoiding use of salt, limiting processed and other high sodium foods, limiting cholesterol intake, saturated vs unsaturated fats, choosing lean proteins and low fat dairy, recommended daily limit of sodium and cholesterol, reading nutrition labels, etc. Provided [facility] handout for reference as well as [facility] RD phone number. Pt's questions were answered to his satisfaction and he verbalized understanding Domitila Herrera RD, LD Contact: *[phone] or via Bil[place] [facility] Progress Note PHYSICAL THERAPY [facility] Treatment Note Name/MRN: Terry Lacy ([id number]) Date of : 1960 Age: 62 y.o. Room/Bed: T1-124/T1-124 A Discharge Recommendation: Home with assist PRN Equipment Needed: No Prior Level of Function ADL Assistance: Independent Ambulation Assistance: Independent Transfer Assistance: Independent Assessment Patient tolerated session well and is highly motivated. States he is getting discharged at 11 AM and is ready to go home. Pt was supervision for all mobility with no unsteadiness or LOB and maintains sternal precautions well. Instructed patient to keep doing P&C exercises a few times a day at home, he states he will be sure to do them and to maintain his precautions. Recommend Home with assist PRN upon discharge. Subjective Patient standing up in room. Agrees to PT this AM. States he is leaving soon. Pain: Pt denies any current pain. Medical Precautions: No active isolations Proper PPE donned/doffed in accordance with facility standards. Fall Risk: [place] Fall Risk Score: 35 (Medium Risk) Precautions/Restrict ions: Sternal Precautions: No Pushing, No Pulling, No Lifting Greater Than 10 lbs Overall Cognitive Status: WNL Overall Orientation Status: Oriented x4 Family/Caregiver Present: none Objective Ambulation Ambulation 1 Assistive device(s) used: none Assist level: Supervision Distance (ft): 355 ft x2. 2 laps around HLU Quality of gait: No gait deviations, No LOB, reciprocal stepping, equal step length Transfers/Mobility Sit to stand: Supervision Stand to sit: Supervision Maintains sternal precautions well. Device(s) used: none Exercises Other exercises Other exercises?: Yes Other exercises 1: P&C exercises 1-9 x10 reps each AROM Other exercises 2: IS [id number] mL x4 Bed Mobility Supine to sit: Supervision Sit to supine: Supervision Stairs Stairs 1 Assistive device used: none Assist Level: Supervision # of steps: 8 Rails: left, right Rails on left to start, turned around and had rails on right during second trial. Additional factors: reciprocal going up, reciprocal going down. Plan Continue acute PT per plan of care. Safety/Education Safety Safety Devices in place: All fall risk precautions in place, call light within reach, and no alarms engaged upon entry Restraints: No Education Education Given To: patient Education Provided: PT Role, PT Goals, Gait Training, Plan of Care, Home Exercise Program, Precautions, Transfer Training, and Benefits of Increasing Activity Education Method: Verbal and Demonstration Barriers to Learning: None Education Outcome: Verbalized Understanding and Demonstrated Understanding Outcome Measures AM-PAC AM-PAC Inpatient Mobility Raw Score : 24 AM-PAC Inpatient Mobility Raw Score (No Stairs) : 20 JH-HLM JH-HLM Score: Walked 250 ft or more (i.e. several laps on unit) Goals Patient Stated Goal: Decrease pain/discomfort and go home Encounter Problems Encounter Problems (Active) Cardiac Patient will perform bed mobility with independence in order to improve independence and prepare for out of bed mobility. (Progressing) Start: 06/02/23 Expected End: 06/30/23 Patient will complete sit to stand transfer with modified independence to none in order to improve safety and prepare for out of bed mobility. (Progressing) Start: 06/02/23 Expected End: 06/30/23 Patient will ambulate 500 feet or ambulate 5 minutes with modified independence with RPE of 14 or lower. (Progressing) Start: 06/02/23 Expected End: 06/30/23 Patient will ascend and descend 5 stairs with modified independence rail for balance only. (Progressing) Start: 06/02/23 Expected End: 06/30/23 Patient will be independent with P&C exercises. (Progressing) Start: 06/02/23 Expected End: 06/30/23 Patient will be independent with managing secretions and home walking program. (Progressing) Start: 06/02/23 Expected End: 06/30/23 Safety Patient will recall/demonstrate sternal precautions with all functional mobility in order to promote healing and safety with functional tasks. (Progressing) Start: 06/02/23 Expected End: 06/30/23 Therapy Time Individual Co-treatment Time In 0936 Time Out 0950 Minutes 14 Timed Code Treatment Minutes: (GT) ASHLEY Santizo This treatment session was completed by a student physical therapist optometric assistant under the supervision of the cosigning therapist. Julia Bourgeois PTA [facility] XR CHEST 1 VIEWon 06-06-2023 XR CHEST 1 VIEW Patient Name: SYLVESTER LACY : 1960 Exam Date/Time: 06/06/2023 05:12 Procedure: XR CHEST 1 VIEW Ordering Provider: LOPES ANDREW Reason For Exam: Shortness of breath CHEST RADIOGRAPH CLINICAL INDICATION: Shortness of breath TECHNIQUE: AP COMPARISON: 06/05/2023 chest radiograph FINDINGS: Status post median sternotomy. Cardiomediastinal: The cardiomediastinal silhouette is enlarged, unchanged compared to prior imaging. Atherosclerotic calcifications are again noted at the aortic knob. Lungs: Small left-sided pleural effusion with bibasilar atelectasis, superimposed infiltrate not entirely excluded. No pneumothorax. Osseous structures: No acute osseous abnormality. IMPRESSION: See findings. Report Dictated on Electronically Signed By: Mitch Pierson MD Electronically Signed Date/Time: 06/06/2023 6:06 AM EDT [facility] XR Chest Single viewon 06-05 See findings. Report Dictated on Electronically Signed By: Mitch Pierson MD Electronically Signed Date/Time: 06/06/2023 6:06 AM EDT [facility] [place] [facility] Patient Name: SYLVESTER LACY : 1960 Exam Date/Time: 06/06/2023 05:12 Procedure: XR CHEST 1 VIEW Ordering Provider: LOPES ANDREW Reason For Exam: Shortness of breath CHEST RADIOGRAPH CLINICAL INDICATION: Shortness of breath TECHNIQUE: AP COMPARISON: 06/05/2023 chest radiograph FINDINGS: Status post median sternotomy. Cardiomediastinal: The cardiomediastinal silhouette is enlarged, unchanged compared to prior imaging. Atherosclerotic calcifications are again noted at the aortic knob. Lungs: Small left-sided pleural effusion with bibasilar atelectasis, superimposed infiltrate not entirely excluded. No pneumothorax. Osseous structures: No acute osseous abnormality. [facility] Mitch Pierson MD - 06/06/2023 Patient Name: SYLVESTER LACY : 1960 Exam Date/Time: 06/06/2023 05:12 Procedure: XR CHEST 1 VIEW Ordering Provider: LOPES ANDREW Reason For Exam: Shortness of breath CHEST RADIOGRAPH CLINICAL INDICATION: Shortness of breath TECHNIQUE: AP COMPARISON: 06/05/2023 chest radiograph FINDINGS: Status post median sternotomy. Cardiomediastinal: The cardiomediastinal silhouette is enlarged, unchanged compared to prior imaging. Atherosclerotic calcifications are again noted at the aortic knob. Lungs: Small left-sided pleural effusion with bibasilar atelectasis, superimposed infiltrate not entirely excluded. No pneumothorax. Osseous structures: No acute osseous abnormality. IMPRESSION: See findings. Report Dictated on Electronically Signed By: Mitch Pierson MD Electronically Signed Date/Time: 06/06/2023 6:06 AM EDT [facility] Radiology Study observation (narrative) [facility] BASIC METABOLIC PANELon 05-25 Anion gap [Moles/Vol] 4 mmol/L Normal 3-13 [facility] Comment on above: Performed By: #### L AB15 ####Line Manager: ALONZO ALMODOVAR ([phone])[address] Calcium [Mass/Vol] 9.5 mg/dL Normal 8.4-10.4 [facility] Comment on above: Performed By: #### L AB15 ####Line Manager: ALONZO [id number])[facility])[address] [place] [address] Chloride [Moles/Vol] 101 mmol/L Normal 98-107 [facility] Comment on above: Performed By: #### L AB15 ####Line Manager: ALONZO [id number])[facility])[address] [place] [address] CO2 [Moles/Vol] 32 mmol/L High 22-30 [facility] Comment on above: Performed By: #### L AB15 ####Line Manager: ALONZO [id number])[facility] [place] [address] Creatinine [Mass/Vol] 0.69 mg/dL Normal 0.66-1.25 [facility] Comment on above: Performed By: #### L AB15 ####Line Manager: ALONZO ALMODOVAR ([phone])[facility] ([facility])[address] [place] [address] GLOMERULAR FILTRATION RATE ML/MIN/1.73 SQ M.PREDICTED >90.0 Normal >60.0 [facility] Comment on above: Result Comment: Calc ulation based on the Chronic Kidney Disease Epidemiology Collaboration (CKD-EPI) equation refit without adjustment for race Performed By: #### L AB15 ####Line Manager: ALONZO ALMODOVAR ([id number])[facility] ([facility])[address] [place] [address] Glucose [Mass/Vol] 123 mg/dL High 70-100 [facility] Comment on above: Performed By: #### L AB15 ####Line Manager: ALONZO ALMODOVAR ([id number])[facility] ([facility])[address] [place] [address] Potassium [Moles/Vol] 4.4 mmol/L Normal 3.5-5.1 [facility] Comment on above: Performed By: #### L AB15 ####Line Manager: ALONZO ALMODOVAR ([phone])[facility] ([facility])[address] [place] [address] Sodium [Moles/Vol] 137 mmol/L Normal 135-145 [facility] Comment on above: Performed By: #### L AB15 ####Line Manager: ALONZO ALMODOVAR ([phone])[facility] ([facility])[address] [place] [address] Urea nitrogen [Mass/Vol] 16 mg/dL Normal 9-20 [facility] Comment on above: Performed By: #### L AB15 ####Line Manager: ALONZO ALMODOVAR ([phone])[facility])[address] [place] [address] Basic metabolic 1998 panelon 03-11-2024 Anion gap [Moles/Vol] 4 mmol/L 3 - 13 mmol/L [facility] Calcium [Mass/Vol] 9.5 mg/dL 8.4 - 10. 4 mg/dL [facility] Chloride [Moles/Vol] 101 mmol/L 98 - 10 7 mmol/L [facility] CO2 [Moles/Vol] 32 mmol/L High 22 - 30 mmol/L [facility] Creatinine [Mass/Vol] 0.69 mg/dL 0.66 - 1.25 mg/dL [facility] GFR/1.73 sq M.predicted MDRD (S/P/Bld) [Vol rate/Area] - PINF [facility] Comment on above: Calculation based on the Chronic Kidney Disease Epidemiology Collaboration (CKD-EPI) equation refit without adjustment for race Glucose [Mass/Vol] 123 mg/dL High 70 - 100 mg/dL [facility] Interpretation and review of laboratory results Abnormal [facility] Potassium [Moles/Vol] 4.4 mmol/L 3.5 - 5.1 mmol/L [facility] Sodium [Moles/Vol] 137 mmol/L 135 - 145 mmol/L [facility] Urea nitrogen [Mass/Vol] 16 mg/dL 9 - 20 mg/d L [facility] CBC (HEMOGRAM)on 06-05-2023 Erythrocyte distribution width (RBC) [Ratio] 14.0 % Normal 11.5-15.0 [facility] Comment on above: Performed By: #### L [id number] ####Line Manager: ALONZO ALMODOVAR ([phone])[address] Hematocrit (Bld) [Volume fraction] 35.2 % Low 40.0-52.0 [facility] Comment on above: Performed By: #### L [id number] ####Line Manager: ALONZO ALMODOVAR ([phone])[address] Hemoglobin (Bld) [Mass/Vol] 11.5 g/dL Low 13.0-18.0 [facility] Comment on above: Performed By: #### L [id number] ####Line Manager: ALONZO [id number])[facility])[address] [place] [address] MCH (RBC) [Entitic mass] 28.9 pg Normal 26.0-34.0 [facility] Comment on above: Performed By: #### L AB294 ####Line Manager: ALONZO ALMODOVAR ([phone])[facility])[address] [place] [address] MCHC 32.7 % Normal 30.5-36.0 [facility] Comment on above: Performed By: #### L AB294 ####Line Manager: ALONZO ALMODOVAR ([phone])[facility])[address] [place] [address] MCV (RBC) [Entitic vol] 88.4 fL Normal 77.0-99.0 [facility] Comment on above: Performed By: #### L AB294 ####Line Manager: ALONZO ALMODOVAR ([id number])[facility] ([facility])[address] [place] [address] Platelet mean volume (Bld) [Entitic vol] 9.4 fL Normal 9.0-12.7 [facility] Comment on above: Performed By: #### L AB294 ####Line Manager: ALONZO ALMODOVAR ([id number])[facility])[address] [place] [address] Platelets (Bld) [#/Vol] 192 10*3/uL Normal 140-440 [facility] Comment on above: Performed By: #### L AB294 ####Line Manager: ALONZO ALMODOVAR ([phone])[facility])[address] [place] [address] RBC (Bld) [#/Vol] 3.98 10*6/uL Low 4.40-5.90 [facility] Comment on above: Performed By: #### L AB294 ####Line Manager: ALONZO ALMODOVAR ([id number])[facility] ([facility])[address] [place] [address] [place] WBC (Bld) [#/Vol] 6.2 10*3/uL Normal 3.6-10.7 [facility] Comment on above: Performed By: #### L [id number] ####Line Manager: ALONZO ALMODOVAR ([phone])[facility] ([facility])[address] [place] [address] CBC panel Auto (Bld)Ordered By: Kranthi Fang on 06-05-2023 Erythrocyte distribution width (RBC) [Ratio] 14.0 % 11.5 - 15.0 % [facility] Hematocrit (Bld) [Volume fraction] 35.2 % Low 40.0 - 52.0 % [facility] Hemoglobin (Bld) [Mass/Vol] 11.5 g/dL Low 13.0 - 18.0 g/dL [facility] Interpretation and review of laboratory results Abnormal [facility] MCH (RBC) [Entitic mass] 28.9 pg 26. 0 - 34.0 pg [facility] MCHC (RBC) [Mass/Vol] 32.7 % 30.5 - 36.0 % [facility] MCV (RBC) [Entitic vol] 88.4 fL 77.0 - 99.0 fL [facility] Platelet mean volume (Bld) [Entitic vol] 9.4 fL 9.0 - 12.7 fL [facility] Platelets (Bld) [#/Vol] 192 10*3/uL 140 - 440 10*3/uL [facility] RBC (Bld) [#/Vol] 3.98 10*6/uL Low 4.40 - 5.9 0 10*6/uL [facility] WBC (Bld) [#/Vol] 6.2 10*3/uL 3.6 - 10.7 10*3/uL [facility] COMPLETE URINALYSISon 2023 BACTERIA (#/HPF) IN URINE Negative Normal Negative [facility] Comment on above: Performed By: #### L [id number] ####Line Manager: ALONZO ALMODOVAR ([phone])[facility] ([facility])[address] [place] [address] BILIRUBIN, TOTAL PRESENCE IN URINE Negative Normal Negative [facility] Comment on above: Performed By: #### L [id number] ####Line Manager: ALONZO ALMODOVAR ([phone])[facility] ([facility])[address] [place] [address] Clarity (U) Cloudy Abnormal Clear [facility] Comment on above: Performed By: #### L [id number] ####Line Manager: ALONZO ALMODOVAR ([phone])[facility])[address] [place] [address] Color (U) Yellow Normal Lt. Yellow [facility] Comment on above: Performed By: #### L [id number] ####Line Manager: ALONZO ALMODOVAR ([id number])[facility] ([facility])[address] [place] [address] GLUCOSE (MG/DL) IN URINE Normal Normal Normal (<70 ) [facility] Comment on above: Performed By: #### L [id number] ####Line Manager: ALONZO ALMODOVAR ([phone])[facility] ([facility])[address] [place] [address] HEMOGLOBIN PRESENCE IN URINE 1.0 mg/dL Abnormal Negative [facility] Comment on above: Performed By: #### L [id number] ####Line Manager: ALONZO ALMODOVAR ([phone])[facility] ([facility])[address] [place] [address] HYALINE CASTS (#/LPF) IN URINE SEDIMENT BY MICROSCOPY 3-5 Abnormal Negative [facility] Comment on above: Performed By: #### L [id number] ####Line Manager: ALONZO ALMODOVAR ([phone])[facility] ([facility])[address] [place] [address] Ketones Ql (U) 10 mg/dL Abnormal Negative [facility] Comment on above: Performed By: #### L [id number] ####Line Manager: ALONZO ALMODOVAR ([phone])[facility] ([facility])[address] [place] [address] LEUKOCYTE ESTERASE PRESENCE IN URINE BY TEST STRIP Negative Normal Negative [facility] Comment on above: Performed By: #### L [id number] ####Line Manager: ALONZO ALMODOVAR ([phone])[facility] ([facility])[address] [place] [address] [place] MUCUS (#/LPF) IN URINE SEDIMENT Moderate Abnormal Negative [facility] Comment on above: Performed By: #### L [id number] ####Line Manager: ALONZO ALMODOVAR ([phone])[facility])[address] [place] [address] NITRITE PRESENCE IN URINE Negative Normal Negative [facility] Comment on above: Performed By: #### L [id number] ####Line Manager: ALONZO ALMODOVAR ([phone])[facility])[address] [place] [address] pH (U) 8.5 [pH] Abnormal 5.0-8.0 [facility] Comment on above: Performed By: #### L [id number] ####Line Manager: ALONZO ALMODOVAR ([phone])[facility])[address] [place] [address] Protein (U) [Mass/Vol] 600 mg/dL Abnormal Negative [facility] Comment on above: Performed By: #### L [id number] ####Line Manager: ALONZO ALMODOVAR ([phone])[facility])[address] [place] [address] RBC (#/HPF) IN URINE SEDIMENT >100 Abnormal 0-2 [facility] Comment on above: Performed By: #### L [id number] ####Line Manager: ALONZO ALMODOVAR ([phone])[facility])[address] [place] [address] Specific gravity (U) [Rel density] 1.024 Normal 1.005-1.030 [facility] Comment on above: Performed By: #### L [id number] ####Line Manager: ALONZO ALMODOVAR ([phone])[facility])[address] [place] [address] SQUAMOUS EPITHELIAL CELLS (#/HPF) IN URINE SEDIMENT Negative Normal 3-5 [facility] Comment on above: Performed By: #### L [id number] ####Line Manager: ALONZO ALMODOVAR ([phone])[facility])[address] [place] [address] UROBILINOGEN (MG/DL) IN URINE Normal Normal Normal (0-1) [facility] Comment on above: Performed By: #### L [id number] ####Line Manager: ALONZO ALMODOVAR ([phone])[address] WBC (LEUKOCYTE) (#/HPF) IN URINE SEDIMENT 11-25 Abnormal 0-5 [facility] Comment on above: Performed By: #### L [id number] ####Line Manager: ALONZO ALMODOVAR ([id number])[address] Consulton 06-05-2023 Consult [facility] Wound Care CONSULT Note Sylvester Lacy AGE: 62 y.o. GENDER: male : 1960 Subjective: HISTORY of PRESENT ILLNESS HPI Sylvester Lacy is a 62 y.o. male who presents for a wound consult. HPI: 62 y.o. 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 Pmhx including RCA and PDA stents in 2008, HTN, Hx of NSVT, Hx of PE, former tobacco use and current ETOH use. He was see in OP setting 05/31/23 and noted to have unstable angina with palpitations and he was direct admitted for urgent CABG. Preoperative testing was completed and he consented to surgical revascularization. Of note patient lives alone at home. 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 Wound Care consulted for multiple areas. Patient states he had a reaction to the electrode pads. PAST MEDICAL HISTORY Past Medical History: Diagnosis Date Atherosclerosis of coronary artery Hay fever Hemorrhoids History of alcohol abuse History of inferior wall myocardial infarction History of pulmonary embolism Hyperlipidemia Hypertension Mucous cyst of digit of hand NSVT (nonsustained ventricular tachycardia) (HCC) PAST SURGICAL HISTORY Past Surgical History: Procedure Laterality Date CORONARY STENT PLACEMENT 2008 FAMILY HISTORY Family History Problem Relation Name Age of Onset Diabetes Mother SOCIAL HISTORY Social History Tobacco Use Smoking status: Former Packs/day: 1.50 Years: 30.00 Additional pack years: 0.00 Total pack years: 45.00 Types: Cigarettes Quit date: 2014 Years since quittin.1 Smokeless tobacco: Never Substance Use Topics Alcohol use: Yes Alcohol/week: 12.0 standard drinks of alcohol Types: 12 Cans of beer per week Drug use: Never ALLERGIES No Known Allergies MEDICATIONS No current facility-administere d medications on file prior to encounter. Current Outpatient Medications on File Prior to Encounter Medication Sig Dispense Refill aspirin 81 MG EC tablet Take 81 mg by mouth daily. carvedilol (Coreg) 12.5 MG tablet Take 6.25 mg by mouth in the morning and 6.25 mg in the evening. Take with meals. cholecalciferol 25 MCG (1000 UT) capsule Take 25 mcg by mouth daily. ibuprofen 800 MG tablet Take 800 mg by mouth 3 times daily as needed for mild pain (1-3). isosorbide mononitrate ER (Imdur) 60 MG 24 hr tablet Take 60 mg by mouth daily. Do not crush or chew. Krill Oil 500 MG capsule Take 1 capsule by mouth daily. lisinopril 5 MG tablet Take 2.5 mg by mouth daily. Multiple Vitamin (multivitamin) capsule Take 1 capsule by mouth daily. nitroglycerin (Nitrostat) 0.[address] 0.4 mg under the tongue every 5 minutes as needed for chest pain. ranolazine (Ranexa) 500 MG 12 hr tablet Take 1,000 mg by mouth 2 times daily. Do not crush, chew, or split. rosuvastatin (Crestor) 10 MG tablet Take 10 mg by mouth daily. zinc gluconate 50 MG tablet Take 50 mg by mouth daily. [DISCONTINUED] coenzyme Q-10 50 MG capsule Take 200 mg by mouth daily. [DISCONTINUED] Glucosamine-Chondroi t-Collagen 250-200-116.67 MG capsule Take 1 tablet by mouth daily. [DISCONTINUED] meclizine (Antivert) 25 MG tablet Take 25 mg by mouth 3 times daily as needed for dizziness. [DISCONTINUED] promethazine (Phenergan) 25 MG tablet Take 25 mg by mouth every 6 hours as needed for nausea or vomiting. REVIEW OF SYSTEMS Pertinent items are noted in HPI. Objective: BP 98/72 (BP Location: Right arm, Patient Position: Sitting) Pulse 99 Temp 36.5 ?C (97.7 ?F) (Temporal) Resp 18 Ht 1.753 m (5' 9) Wt 107 kg (235 lb 8 oz) SpO2 93% BMI 34.78 kg/m? PHYSICAL EXAM General appearance: in no apparent distress, alert, and oriented times 3 Skin: warm and dry Pulmonary: Normal effort, no respiratory distress, no cyanosis Extremities: no cyanosis, clubbing or edema Left medial lower leg: incision noted with dry surgical glue. Right medial lower leg: incision noted with dry surgical glue. Right chest: 2x2x0.1cm. Wound bed with pink tissue. Small serosanguinous drainage noted. (Picture did not upload) Left chest: 2x2x0.1cm. Wound bed with pink tissue. Small serosanguinous drainage noted. Right upper abdomen: 2x2x0.1cm. Wound bed with pink tissue. Small serosanguinous drainage noted. LABS CBC: Lab Results Component Value Date WBC 6.2 06/05/2023 HGB 11.5 (L) 06/05/2023 HCT 35.2 (L) 06/05/2023 MCV 88.4 06/05/2023 PLT 192 06/05/2023 BMP: Lab Results Component Value Date NA 137 06/05/2023 K 4.4 06/05/2023 CL 101 06/05/2023 CO2 32 (H) 06/05/2023 BUN 16 06/05/2023 CREATININE 0.69 06/05/2023 PT/INR: Lab Results Component Value Date PROTIME 10.5 06/04/2023 INR 1.0 06/04/2023 Prealbumin: No results found for: PREALBUMIN Albumin:No components found for: LABALBU Sed Rate:No results found for: SEDRATE Micro: No components found for: BC Assessment/Plan: Left medial lower leg: surgical (more content not included)... Normal [facility] Consult Attestation signed by Bryant Breaux MD at 06/06/2023 11:38 AM I saw and evaluated the patient, participating in the soto portions of the service. I reviewed the resident?s note. I agree with the resident?s findings and plan. Bryant Breaux MD Urology Inpatient Consultation Patient Name: Sylvester Lacy Date of : 1960 Admission Date: 05/31/2023 2:33 PM Today's Date: 06/05/2023 Reason for consultation: urinary retention Chief complaint: same HISTORY OF PRESENT ILLNESS: The patient is a 62 y.o. male unknown to our service presented on 05/30 with chest pain and underwent CABG on 05/31. A catheter was placed intra-op and maintain until 06/02 when it was removed. He required staight cath over the weekend for 1.3L and 650cc. A catheter was replaced this morning and urology was consulted. He is not on any prostate medications at home. He was voiding without issue prior to his surgery. He does not recall seeing urology in the past. PAST MEDICAL HISTORY: Past Medical History: Diagnosis Date Atherosclerosis of coronary artery Hay fever Hemorrhoids History of alcohol abuse History of inferior wall myocardial infarction History of pulmonary embolism Hyperlipidemia Hypertension Mucous cyst of digit of hand NSVT (nonsustained ventricular tachycardia) ([facility]) PAST SURGICAL HISTORY: Past Surgical History: Procedure Laterality Date CORONARY STENT PLACEMENT ALLERGIES: Patient has no known allergies. CURRENT MEDICATIONS: Medications No current facility-administere d medications for this visit. No current outpatient medications on file. Facility-Administere d Medications Ordered in Other Visits: [START ON 06/01/2023] chlorhexidine (Hibiclens) 4 % liquid, , Topical, Once, JOSE DANIEL Sultana CNP chlorhexidine (Hibiclens) 4 % liquid, , Topical, Once, JOSE DANIEL Sultana CNP [START ON 06/01/2023] chlorhexidine (Peridex) 0.12 % solution 15 mL, 15 mL, Mouth/Throat, Once, JOSE DANIEL Sultana CNP chlorhexidine (Peridex) 0.12 % solution 15 mL, 15 mL, Mouth/Throat, Once, JOSE DANIEL Sultana CNP [START ON 06/01/2023] mupirocin (Bactroban) 2 % ointment, , Topical, Once, JOSE DANIEL Sultana CNP mupirocin (Bactroban) 2 % ointment, , Topical, Once, JOSE DANIEL Sultana CNP FAMILY HISTORY: Family History Problem Relation Name Age of Onset Diabetes Mother Social History: Social History Tobacco Use Smoking status: Former Packs/day: 1.50 Years: 30.00 Additional pack years: 0.00 Total pack years: 45.00 Types: Cigarettes Quit date: 2014 Years since quittin.1 Smokeless tobacco: Never Substance Use Topics Alcohol use: Yes Alcohol/week: 12.0 standard drinks of alcohol Types: 12 Cans of beer per week ROS: Constitutional: negative for chills and fevers HEENT: no blurry vision or eye redness Respiratory: negative for hemoptysis and shortness of breath Cardiovascular: negative for dyspnea and syncope Gastrointestinal: negative for jaundice, nausea and vomiting Genitourinary:negati ve for dysuria and hematuria,+ urinary retention Hematologic/lymphati c: negative for bleeding Integumentary: no new bruises or lesions Musculoskeletal:nega tive for muscle weakness Neurological: negative for coordination problems and seizures All other systems negative Physical Exam: Vitals: Vitals: 06/05/23 0500 06/05/23 0600 06/05/23 0700 06/05/23 0800 BP: 110/79 BP Location: Right arm Patient Position: Lying Pulse: 94 112 112 96 Resp: 18 Temp: 36.6 ?C (97.9 ?F) TempSrc: Temporal SpO2: 93% 92% Weight: 235 lb 8 oz (107 kg) Height: General: Alert, in no acute distress Head: Normocephalic, atraumatic Neck: supple, trachea is midline, no obvious masses Respiratory: normal effort Cardiovascular: regular pulse, no extremity edema Musculoskeletal: moving all 4 extremities Skin: warm and dry Psych: normal mood and affect; appropriate judgement and insight Abdomen: soft, non distended, non tender : isaac draining yellow urine DATA: LABS: BMP: Lab Results Component Value Date GLUCOSE 123 (H) 06/05/2023 CALCIUM 9.5 06/05/2023 NA 137 06/05/2023 K 4.4 06/05/2023 CO2 32 (H) 06/05/2023 CL 101 06/05/2023 BUN 16 06/05/2023 CREATININE 0.69 06/05/2023 CBC: Lab Results Component Value Date WBC 6.2 06/05/2023 HGB 11.5 (L) 06/05/2023 HCT 35.2 (L) 06/05/2023 MCV 88.4 06/05/2023 PLT 192 06/05/2023 Urinalysis: reviewed Urine Culture: No components found for: LABURIN RADIOLOGY: none IMPRESSION: 62 y.o. male with history of CAD s/p CABG x5 on 05/30, developed urinary retention post-operatively requiring multiple straight caths (1.3L and 650cc) PLAN: - maintain catheter to gravity drainage - flomax - UA ordered - no recent imaging, Cr wnl - recommend (more content not included)... Normal [facility] Progress Noteon 06-05-2023 Progress Note PHYSICAL THERAPY [facility] Treatment Note Name/MRN: Terry Lacy ([id number]) Date of : 1960 Age: 62 y.o. Room/Bed: T1-124/T1-124 A Discharge Recommendation: Home with assist PRN Equipment Needed: No Prior Level of Function ADL Assistance: Independent Ambulation Assistance: Independent Transfer Assistance: Independent Assessment Patient tolerated session well and is highly motivated. Patient was up and walking in hallway at start of session and walked to stairs. Required SBA during stair trial and completed 8 steps with the use of railing on left during one trial and right during next trial. During session pt required Supervision during ambulation back to room and had no LOB. Reviewed P&C exercises with patient and reminded him of Move in the Tube. Pt is compliant with precautions. Progressing toward PT goals. Recommend Home with assist PRN upon discharge. Subjective Pt up and walking independently in dc. Agrees to PT to trial stairs and go through P&C exercises. Pain: Pt denies any current pain. Medical Precautions: No active isolations Proper PPE donned/doffed in accordance with facility standards. Fall Risk: [place] Fall Risk Score: 35 (Medium Risk) Precautions/Restrict ions: Sternal Precautions: No Pushing, No Pulling, No Lifting Greater Than 10 lbs Lines/Drains/Airways : PIV Overall Cognitive Status: WNL Overall Orientation Status: Oriented x4 Family/Caregiver Present: none Objective Ambulation Ambulation 1 Assistive device(s) used: none Assist level: Supervision Distance (ft): 75 ft Quality of gait: No LOB, reciprocal stepping, equal step length Pt had already been up and walked a few laps around unit. Caught him while he was up to trial stairs and returned back to room. Transfers/Mobility Stand to sit: SBA Maintains sternal precautions well. Device(s) used: none Exercises Other exercises Other exercises?: Yes Other exercises 1: P&C exercises 1-9 x5 reps each AROM Balance: Posture: good Stairs Stairs 1 Assistive device(s) used: none Assist level: SBA # of steps: 8 Rails: left, right Started with rails on left, turned around and had rails on right Additional factors: reciprocal going up, reciprocal going down Plan Continue acute PT per plan of care. Safety/Education Safety Safety Devices in place: All fall risk precautions in place, call light within reach, and left in chair Restraints: No Education Education Given To: patient Education Provided: PT Role, PT Goals, Gait Training, Plan of Care, Home Exercise Program, Precautions, and Benefits of Increasing Activity Education Method: Verbal and Demonstration Barriers to Learning: None Education Outcome: Verbalized Understanding and Demonstrated Understanding Outcome Measures AM-PAC AM-PAC Inpatient Mobility Raw Score : 21 AM-PAC Inpatient Mobility Raw Score (No Stairs) : 17 JH-HLM -HLM Score: Walked 25 ft or more (i.e. walked outside of room) Goals Patient Stated Goal: Decrease pain/discomfort and go home Encounter Problems Encounter Problems (Active) Cardiac Patient will perform bed mobility with independence in order to improve independence and prepare for out of bed mobility. (Not Addressed) Start: 06/02/23 Expected End: 06/30/23 Patient will complete sit to stand transfer with modified independence to none in order to improve safety and prepare for out of bed mobility. (Progressing) Start: 06/02/23 Expected End: 06/30/23 Patient will ambulate 500 feet or ambulate 5 minutes with modified independence with RPE of 14 or lower. (Progressing) Start: 06/02/23 Expected End: 06/30/23 Patient will ascend and descend 5 stairs with modified independence rail for balance only. (Progressing) Start: 06/02/23 Expected End: 06/30/23 Patient will be independent with P&C exercises. (Progressing) Start: 06/02/23 Expected End: 06/30/23 Patient will be independent with managing secretions and home walking program. (Progressing) Start: 06/02/23 Expected End: 06/30/23 Safety Patient will recall/demonstrate sternal precautions with all functional mobility in order to promote healing and safety with functional tasks. (Progressing) Start: 06/02/23 Expected End: 06/30/23 Therapy Time Individual Co-treatment Time In 1046 Time Out 1103 Minutes 17 Timed Code Treatment Minutes: (TP) ASHLEY Santizo This treatment session was completed by a student physical therapist optometric assistant under the supervision of the cosigning therapist. Julia Bourgeois PTA [facility] Progress Note Cardiothoracic Surgery Interval Note PATIENT NAME: Sylvester Lacy : 1960 (62 y.o.) TODAY'S DATE: 06/05/2023 Interval History: After discussion with surgeon Home isaac and consult urology for recs. Patient likely d/c in next day or two [facility] Progress Note Attestation signed by Alex Moy MD at 06/05/2023 11:20 AM (Updated) I have personally performed a face to face diagnostic evaluation on this patient today on 06/05/23. Labs, imaging studies, and electronic medical record notes on [facility] have been reviewed by me. This note documented and discussed by the []inspectors and regulatory officers []Fellow [x] MATTY reflects my history, exam and medical decision making. I have reviewed and agree with the care plan. Changes were made in the orders as necessary. ROS documentation was reviewed and negative unless otherwise stated in the HPI. My history, exam, assessment and plan are as follows: Time spent for coordination of care: a subsequent visit: 25 minutes (Level I) Awake, alert, resp unlabored CAD 3/7 s/p CABG x 5 HTN, HLD Normocytic anemia, expected post op Urinary retention On ASA, statin, b-constance Flomax started yesterday, if cont unable to void-->isaac re-insertion and urology eval, ?home with isaac Cardiothoracic Surgery/CCM Progress Note PATIENT NAME: Sylvester Lacy DATE: 06/05/23 HPI: 62 y.o. 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 Pmhx including RCA and PDA stents in 2008, HTN, Hx of NSVT, Hx of PE, former tobacco use and current ETOH use. He was see in OP setting 05/31/23 and noted to have unstable angina with palpitations and he was direct admitted for urgent CABG. Preoperative testing was completed and he consented to surgical revascularization. Of note patient lives alone at home. 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 Surgery/Procedure: 05/31/23: CABGx5 (CAMPBELL to LAD, Free left radial to OM2, SVG to right pDA, SVG to Diag1, SVG to Diag2) left radial harvest R leg EVH and PAM with Dr. Huang Interval History: 06/05/23, POD# 5: VSS on Ra. Noted urinary retention throughout the weekend - started on flomax and straight cathed multiple times. Per patient has had issues in past with urgency and able to void in general; does not see a urologist as outpatient. No BM todate - discussed options will give MOM this morning if unsuccessful will try suppository Review of Systems Constitutional: Negative for diaphoresis, fatigue and fever. Respiratory: Negative for cough, shortness of breath and wheezing. Cardiovascular: Positive for chest pain (incisoinal). Negative for palpitations and leg swelling. Gastrointestinal: Negative for abdominal distention, constipation and diarrhea. Skin: Negative for color change, pallor and rash. Objective: Last BM Date: 05/31/23 Vitals: BP: 116/78, MAP (mmHg): 89, BP Method: Automatic Heart Rate: 88 Resp: 16 Temp: 36.8 ?C (98.2 ?F), Temp Source: Temporal BMI (Calculated): 35.15 CXR: BMP: Recent Labs 06/03/23 0405 06/04/23 0034 NA 134* 139 K 4.2 4.5 CL 103 100 CO2 24 33* BUN 20 18 CREATININE 0.88 0.70 CALCIUM 8.6 9.3 MG 2.2 -- CBC: Recent Labs 06/03/23 0405 06/04/23 0034 WBC 7.5 7.0 HGB 10.3* 10.5* HCT 32.0* 33.9* PLT 140 138* MCV 89.4 90.9 RDW 14.3 14.1 Physical Exam Cardiovascular: Rate and Rhythm: Normal rate and regular rhythm. Heart sounds: Normal heart sounds. No murmur heard. No friction rub. Pulmonary: Effort: Pulmonary effort is normal. Skin: General: Skin is warm and dry. Capillary Refill: Capillary refill takes less than 2 seconds. Findings: Bruising, ecchymosis and wound (skin tears from electrodes) present. Comments: Surgical Incisions: well approximate; clean dry with no drainage noted. Surrounding skin no redness, warmth, or signs of infection noted. Neurological: Mental Status: He is alert. Psychiatric: Behavior: Behavior is cooperative. *Epicardial wires not currently in place per patient were removed when CTs pulled Assessment: MVCAD s/p CABGx5 05/31/23 Hx NSVT HLD HTN ETOH use Urinary retention Former Tobacco use Post operative Pulm Management: Normal Post-operative Course Post-operative Atrial Fibrillation: []Yes [x] No Acute blood loss anemia/consumptive Plan: Patient Status: Telemetry Medications: Continue ASA, BB, statin CCB for 30 days due to radial artery harvest Flomax - urinary retention MOM x1; may need suppository for BM GI prophy: PO protonix DVT prophy: Heparin SubQ Bowel: senna/miralax Interventions: Remove IJ Bladder scan - may need isaac reinserted and Uro consult Pulmonary hygiene: IS and Acapella TEDs, SCDs Restraints: []Yes [x] No Consults: Endocrinology signed off D/c recs: none follow up with PCP Wound care - electrode/skin tears Therapies: PT: home with assist 06/03 OT: home with assist 06/03 Disposition: TBD - likely home with home health in next couple of days? Patient discuss (more content not included)... Normal [facility] Urinalysis complete panel (U )Ordered By: Renea Dhaliwal on 06-05-2023 Bacteria LM.HPF (Urine sed) [#/Area] Negative Negative /HPF [facility] Bilirubin Ql (U) Negative Negative mg/dL [facility] Clarity (U) Cloudy Abnormal Clear [facility] Color (U) Yellow Lt. Yellow [facility] Epithelial cells.squamous LM.HPF (Urine sed) [#/Area] Negative [facility] Glucose Ql (U) Normal Normal (<70) mg/dL [facility] Hemoglobin Ql (U) 1.0 mg/dL Abnormal Negative [facility] H ealth Hyaline casts Auto (Urine sed) [#/Area] 3-5 Abnormal Negative /LPF [facility] Interpretation and review of laboratory results Abnormal [facility] Ketones (U) [Mass/Vol] 10 mg/dL Abnormal Negative [facility] Leukocyte esterase Test strip Ql (U) Negative Negative Niecy/uL [facility] Mucus LM.HPF (Urine sed) [#/Area] Moderate Abnormal Negative /LPF [facility] Nitrite Ql (U) Negative Negative [facility] pH (U) 8.5 [pH] Abnormal 5.0 - 8.0 pH [facility] Protein (U) [Mass/Vol] 600 mg/dL Abnormal Negative [facility] RBC LM.HPF (Urine sed) [#/Area] /[HPF] Abnormal [facility] Specific gravity (U) [Rel density] 1.024 1.005 - 1.030 [facility] Urobilinogen (U) [Mass/Vol] Normal Normal (0-1) mg/dL [facility] WBC LM.HPF (Urine sed) [#/Area] 11-25 Abnormal [facility] XR CHEST 1 VIEWon 06-05-2023 XR CHEST 1 VIEW Patient Name: SYLVESTER LACY : 1960 Exam Date/Time: 06/05/2023 05:47 Procedure: XR CHEST 1 VIEW Ordering Provider: LOPES ANDREW Reason For Exam: Shortness of breath CHEST - PORTABLE: CLINICAL INDICATION: Respiratory distress for follow up TECHNIQUE: Portable AP COMPARISON: One day ago FINDINGS: Heart/Mediastinum: Unchanged Lungs/Pleura: No new consolidation or atelectasis. Costophrenic angles are sharp. IMPRESSION: No new consolidation, atelectasis or pleural effusion. Report Dictated on Electronically Signed By: Daniel Fall MD Electronically Signed Date/Time: 06/05/2023 9:37 AM EDT [facility] XR Chest Single viewon 06-04 No new consolidation, atelectasis or pleural effusion. Report Dictated on Electronically Signed By: Daniel Fall MD Electronically Signed Date/Time: 06/05/2023 9:37 AM EDT [facility] [place] [facility] Patient Name: SYLVESTER LACY : 1960 Exam Date/Time: 06/05/2023 05:47 Procedure: XR CHEST 1 VIEW Ordering Provider: LOPES ANDREW Reason For Exam: Shortness of breath CHEST - PORTABLE: CLINICAL INDICATION: Respiratory distress for follow up TECHNIQUE: Portable AP COMPARISON: One day ago FINDINGS: Heart/Mediastinum: Unchanged Lungs/Pleura: No new consolidation or atelectasis. Costophrenic angles are sharp. [facility] Daniel Fall MD - 06/05/2023 Patient Name: SYLVESTER LACY : 1960 Exam Date/Time: 06/05/2023 05:47 Procedure: XR CHEST 1 VIEW Ordering Provider: LOPES ANDREW Reason For Exam: Shortness of breath CHEST - PORTABLE: CLINICAL INDICATION: Respiratory distress for follow up TECHNIQUE: Portable AP COMPARISON: One day ago FINDINGS: Heart/Mediastinum: Unchanged Lungs/Pleura: No new consolidation or atelectasis. Costophrenic angles are sharp. IMPRESSION: No new consolidation, atelectasis or pleural effusion. Report Dictated on Electronically Signed By: Daniel Fall MD Electronically Signed Date/Time: 06/05/2023 9:37 AM EDT [facility] Radiology Study observation (narrative) [facility] XR Chest Single viewOrdered By: Daniel Fall on 06-05-2023 [facility] [place] Phone: BASIC METABOLIC PANELon 05-25 Anion gap [Moles/Vol] 5 mmol/L Normal 3-13 [facility] Comment on above: Performed By: #### L AB15 ####Line Manager: ALONZO ALMODOVAR ([phone])[facility])[address] [place] [address] Calcium [Mass/Vol] 9.3 mg/dL Normal 8.4-10.4 [facility] Comment on above: Performed By: #### L AB15 ####Line Manager: ALONZO ALMODOVAR ([phone])[facility])[address] [place] [address] Chloride [Moles/Vol] 100 mmol/L Normal 98-107 [facility] Comment on above: Performed By: #### L AB15 ####Line Manager: ALONZO ALMODOVAR ([phone])[facility])[address] [place] [address] CO2 [Moles/Vol] 33 mmol/L High 22-30 [facility] Comment on above: Performed By: #### L AB15 ####Line Manager: ALONZO ALMODOVAR ([phone])[facility])[address] [place] [address] Creatinine [Mass/Vol] 0.70 mg/dL Normal 0.66-1.25 [facility] Comment on above: Performed By: #### L AB15 ####Line Manager: ALONZO ALMODOVAR ([phone])[facility])[address] [place] [address] GLOMERULAR FILTRATION RATE ML/MIN/1.73 SQ M.PREDICTED >90.0 Normal >60.0 [facility] Comment on above: Result Comment: Calc ulation based on the Chronic Kidney Disease Epidemiology Collaboration (CKD-EPI) equation refit without adjustment for race Performed By: #### L AB15 ####Line Manager: ALONZO ALMODOVAR ([phone])[facility])[address] [place] [address] Glucose [Mass/Vol] 137 mg/dL High 70-100 [facility] Comment on above: Performed By: #### L AB15 ####Line Manager: ALONZO ALMODOVAR ([phone])[facility])[address] [place] [address] Potassium [Moles/Vol] 4.5 mmol/L Normal 3.5-5.1 [facility] Comment on above: Performed By: #### L AB15 ####Line Manager: ALONZO ALMODOVAR ([phone])[facility])[address] [place] [address] Sodium [Moles/Vol] 139 mmol/L Normal 135-145 [facility] Comment on above: Performed By: #### L AB15 ####Line Manager: ALONZO ALMODOVAR ([phone])[facility])[address] [place] [address] [place] Urea nitrogen [Mass/Vol] 18 mg/dL Normal 9-20 [facility] Comment on above: Performed By: #### L AB15 ####Line Manager: ALONZO ALMODOVAR ([phone])[facility])[address] [place] [address] Basic metabolic 1998 panelon 06-04-2023 Anion gap [Moles/Vol] 5 mmol/L 3 - 13 mmol/L [facility] Calcium [Mass/Vol] 9.3 mg/dL 8.4 - 10. 4 mg/dL [facility] Chloride [Moles/Vol] 100 mmol/L 98 - 10 7 mmol/L [facility] CO2 [Moles/Vol] 33 mmol/L High 22 - 30 mmol/L [facility] Creatinine [Mass/Vol] 0.70 mg/dL 0.66 - 1.25 mg/dL [facility] GFR/1.73 sq M.predicted MDRD (S/P/Bld) [Vol rate/Area] - PINF [facility] Comment on above: Calculation based on the Chronic Kidney Disease Epidemiology Collaboration (CKD-EPI) equation refit without adjustment for race Glucose [Mass/Vol] 137 mg/dL High 70 - 100 mg/dL [facility] Interpretation and review of laboratory results Abnormal [facility] Potassium [Moles/Vol] 4.5 mmol/L 3.5 - 5.1 mmol/L [facility] Sodium [Moles/Vol] 139 mmol/L 135 - 145 mmol/L [facility] Urea nitrogen [Mass/Vol] 18 mg/dL 9 - 20 mg/d L [facility] CBC (HEMOGRAM)on 06-04-2023 Erythrocyte distribution width (RBC) [Ratio] 14.1 % Normal 11.5-15.0 [facility] Comment on above: Performed By: #### L [id number] ####Line Manager: ALONZO ALMODOVAR ([phone])[address] Hematocrit (Bld) [Volume fraction] 33.9 % Low 40.0-52.0 [facility] Comment on above: Performed By: #### L [id number] ####Line Manager: ALONZO [id number])[address] Hemoglobin (Bld) [Mass/Vol] 10.5 g/dL Low 13.0-18.0 [facility] Comment on above: Performed By: #### L [id number] ####Line Manager: ALONZO [id number])[facility] ([facility])[address] [place] [address] MCH (RBC) [Entitic mass] 28.2 pg Normal 26.0-34.0 [facility] Comment on above: Performed By: #### L [id number] ####Line Manager: ALONZO ALMODOVAR ([phone])[facility])[address] [place] [address] MCHC 31.0 % Normal 30.5-36.0 [facility] Comment on above: Performed By: #### L [id number] ####Line Manager: ALONZO ALMODOVAR ([id number])[facility])[address] [place] [address] MCV (RBC) [Entitic vol] 90.9 fL Normal 77.0-99.0 [facility] Comment on above: Performed By: #### L AB294 ####Line Manager: ALONZO ALMODOVAR ([phone])[facility])[address] [place] [address] Platelet mean volume (Bld) [Entitic vol] 9.8 fL Normal 9.0-12.7 [facility] Comment on above: Performed By: #### L AB294 ####Line Manager: ALONZO ALMODOVAR ([phone])[facility])[address] [place] [address] Platelets (Bld) [#/Vol] 138 10*3/uL Low 140-440 [facility] Comment on above: Performed By: #### L [id number] ####Line Manager: ALONZO ALMODOVAR ([id number])[facility])[address] [place] [address] RBC (Bld) [#/Vol] 3.73 10*6/uL Low 4.40-5.90 [facility] Comment on above: Performed By: #### L [id number] ####Line Manager: ALONZO ALMODOVAR ([id number])[facility])[address] [place] [address] WBC (Bld) [#/Vol] 7.0 10*3/uL Normal 3.6-10.7 [facility] Comment on above: Performed By: #### L [id number] ####Line Manager: ALONZO ALMODOVAR ([phone])[facility] ([address] CBC panel Auto (Bld)Ordered By: Baljeet Saravia on 06-04-2023 Erythrocyte distribution width (RBC) [Ratio] 14.1 % 11.5 - 15.0 % [facility] Hematocrit (Bld) [Volume fraction] 33.9 % Low 40.0 - 52.0 % [facility] Hemoglobin (Bld) [Mass/Vol] 10.5 g/dL Low 13.0 - 18.0 g/dL [facility] Interpretation and review of laboratory results Abnormal [facility] MCH (RBC) [Entitic mass] 28.2 pg 26. 0 - 34.0 pg [facility] MCHC (RBC) [Mass/Vol] 31.0 % 30.5 - 36.0 % [facility] MCV (RBC) [Entitic vol] 90.9 fL 77.0 - 99.0 fL [facility] Platelet mean volume (Bld) [Entitic vol] 9.8 fL 9.0 - 12.7 fL [facility] Platelets (Bld) [#/Vol] 138 10*3/uL Low 140 - 440 10*3/uL [facility] RBC (Bld) [#/Vol] 3.73 10*6/uL Low 4.40 - 5.9 0 10*6/uL [facility] WBC (Bld) [#/Vol] 7.0 10*3/uL 3.6 - 10.7 10*3/uL [facility] ECG 12-LEADon 06-04-2023 ECG 12-LEAD IMPRESSION: Sinus rhythm Borderline left axis deviation Minimal ST elevation, inferior leads Electronically Signed On 06-04-2023 11:45:44 EDT by Cihp Godfrey [facility] Laboratory - Coagulationon 0 06-04-2023 aPTT Coag (PPP) [Time] 28.8 s 20.0 - 30.5 s [facility] INR Coag (PPP) [Relative time] 1.0 {INR} 0.9 - 1.1 [facility] Comment on above: Recommended Anticoag ulant Therapy: SEE BELOW ----- INR of 2.0 - 3.0 : - Prophylaxis of Venous Thrombosis (high-risk surgery) - Treatment of Venous Thrombosis - Treatment of Pulmonary Embolism (Includes tissue heart valves, Acute Myocardial Infarction to prevent systemic embolism, Valvular Heart Disease, and Atrial Fibrillation) ----- INR of 2.5 - 3.5 : - Mechanical Prosthetic Valves (high risk) - If oral anticoagulant therapy is used to prevent Myocardial Infarction PT Coag (Bld) [Time] 10.5 s 9.0 - 12.0 s [facility] [employer] No Panel InformationOrdered By: Chip Mobley on 06-04-2023 P [place] 13 degrees [facility] Work Phone: ME Interval 166 ms [employer] Work Phone: QRS [place] -21 degrees [employer] Work Phone: QRSD Interval 80 ms [facility] [employer] Work Phone: QT Interval 351 ms [employer] Work Phone: QTC Interval 423 ms [employer] Work Phone: T Wave [place] 36 degrees [employer] Work Phone: [employer] Work Phone: No Panel Informationon 06-03 Sinus rhythm Borderline left axis deviation Minimal ST elevation, inferior leads Electronically Signed On 06-04-2023 11:45:44 EDT by Chip Mobley CV Chip Villatoro MD - 06/04/2023 IMPRESSION: Sinus rhythm Borderline left axis deviation Minimal ST elevation, inferior leads Electronically Signed On 06-04-2023 11:45:44 EDT by Chip Mobley [facility] [employer] Interpretation and review of laboratory results Normal [facility] Blood Expiration Date [id number] [facility] Crossmatch interpretation COMP [facility] [employer] Dispense Status Released from [employer] [facility] [employer] Product Blood Type 6200 [facility] PRODUCT CODE [id number] [facility] Unit ABO A [facility] Unit Number [id number] [facility] Unit Number [id number] [facility] alth Unit RH Positive [facility] Unit Volume 300 mL [facility] PROTIME AND APTTon aPTT Coag (Bld) [Time] 28.8 s Normal 20.0-30.5 [facility] Comment on above: Performed By: #### Sebastien [id number] ####Line Manager: ALONZO ALMODOVAR ([id number])[facility])[address] [place] [address] INR Coag (PPP) [Relative time] 1.0 {INR} Normal 0.9-1.1 [facility] Comment on above: Result Comment: Kam mmended Anticoagulant Therapy: SEE BELOW ----- INR of 2.0 - 3.0 : - Prophylaxis of Venous Thrombosis (high-risk surgery) - Treatment of Venous Thrombosis - Treatment of Pulmonary Embolism (Includes tissue heart valves, Acute Myocardial Infarction to prevent systemic embolism, Valvular Heart Disease, and Atrial Fibrillation) ----- INR of 2.5 - 3.5 : - Mechanical Prosthetic Valves (high risk) - If oral anticoagulant therapy is used to prevent Myocardial Infarction Performed By: #### Sebastien [id number] ####Line Manager: ALONZO ALMODOVAR ([phone])[facility])[address] [place] [address] PT Coag (PPP) [Time] 10.5 s Normal 9.0-12.0 [facility] Comment on above: Performed By: #### Sebastien [id number] ####Line Manager: ALONZO ALMODOVAR ([phone])[facility])[address] [place] [address] Progress Noteon 06-04-2023 Progress Note Attestation signed by Susan Covington DO at 06/04/2023 1:30 PM (Updated) I have personally performed a [id number] diagnostic evaluation on this patient on date of service 06/04/23. History, labs, imaging studies, and electronic medical record have been reviewed by me. This note documented by the []pump house technician [x]MATTY reflects my history, exam, and medical decision making. I have reviewed and agree with the care plan. Changes were made in the orders as necessary. ROS documentation was reviewed and negative unless otherwise stated in HPI. Assessment: -POD 3 CABGx5 for mvCAD -acute post op blood loss anemia -HTN/HLD -hx NVST -EtOH use -obesity -urinary retention Plan: -stable on 2L NC, cont to wean. Cont to encourage pulm toilet, IS/acapella, OOB. -ASA, statin, BB -lasix x1 today -cont norvasc for radial artery harvest -Flomax added for urinary retention, bladder scanning/may need straight cath -PT/OT -tele status Cardiothoracic Surgery/CCM Progress Note PATIENT NAME: Sylvester Lacy DATE: 06/04/23 HPI: 62 y.o. 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 Pmhx including RCA and PDA stents in 2008, HTN, Hx of NSVT, Hx of PE, former tobacco use and current ETOH use. He was see in OP setting 05/31/23 and noted to have unstable angina with palpitations and he was direct admitted for urgent CABG. Preoperative testing was completed and he consented to surgical revascularization. Of note patient lives alone at home. 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 Cardiac cath showed 90% D1, 90% D2, 80% mLAD, 90% ostial OM1, 80% mCirc, 90% mRCA Surgery: 05/31/23: CABGx5 (CAMPBELL to LAD, Free left radial to OM2, SVG to right pDA, SVG to Diag1, SVG to Diag2) left radial harvest R leg EVH and PAM with Dr. Huang Interval History: 06/01/23: POD #3 - No acute events overnight - pt has allergy to tape and has some blistering where his Lido patches were placed. VSS, Labs stable Review of Systems Constitutional: Negative for diaphoresis, fatigue and fever. Respiratory: Negative for cough, shortness of breath and wheezing. Cardiovascular: Negative for chest pain, palpitations and leg swelling. Gastrointestinal: Negative for abdominal distention, constipation and diarrhea. Skin: Negative for color change, pallor and rash. Objective: Last BM Date: 05/31/23 Vitals: BP: 119/75, MAP (mmHg): 89, BP Method: Automatic Heart Rate: 88 Resp: 16 Temp: 36.8 ?C (98.2 ?F), Temp Source: Temporal BMI (Calculated): 35.15 CXR: BMP: Recent Labs 06/01/23 1245 06/02/23 0004 06/03/23 0405 06/04/23 0034 NA 139 136 134* 139 K 4.3 4.5 4.2 4.5 CL 109* 107 103 100 CO2 23 22 24 33* BUN 14 17 20 18 CREATININE 0.79 0.83 0.88 0.70 CALCIUM 8.7 7.9* 8.6 9.3 MG 2.9* 2.2 2.2 -- PHOS 3.2 -- -- -- CBC: Recent Labs 06/02/23 0004 06/03/23 0405 06/04/23 0034 WBC 8.1 7.5 7.0 HGB 9.8* 10.3* 10.5* HCT 29.7* 32.0* 33.9* PLT 146 140 138* MCV 87.9 89.4 90.9 RDW 14.2 14.3 14.1 INR: Recent Labs 06/02/23 0004 06/03/23 0405 06/04/23 0101 INR 1.2* 1.1 1.0 Physical Exam Cardiovascular: Rate and Rhythm: Regular rhythm. Heart sounds: Normal heart sounds. No murmur heard. No friction rub. No S4 sounds. Pulmonary: Effort: Pulmonary effort is normal. Skin: General: Skin is warm and dry. Capillary Refill: Capillary refill takes less than 2 seconds. Findings: Bruising and ecchymosis present. Comments: MSCI Intact Right EVH intact Left radial artery harvest sites intact RIJ introducer Neurological: Mental Status: He is alert. Psychiatric: Behavior: Behavior is cooperative. Assessment: MVCAD s/p CABGx5 05/31/23 Hx NSVT HLD HTN ETOH use Former Tobacco use Post operative Pulm Management: Normal Post-operative Course Post-operative Atrial Fibrillation: []Yes [x] No Plan: Patient Status: ICU GDMT for CAD with EF preserved - asa - Crestor - BB - lasix IV 40mg - continue bladder scans and flomax for prostate Hold home ranexa, lisinopril PT/OT: Home with home health Pulmonary hygiene: IS and Acapella GI prophy: PO protonix DVT prophy:TEDs, SCDs, and Heparin SubQ Disposition: TBD Central Line: [x]Yes [] No Arterial Line: []Yes [] No Isaac: [x]Yes [] No Restraints: []Yes [x] No Patient discussed and plan of day developed from multidisciplinary rounds between Cardiothoracic Surgery (Cardiothoracic Surgeon, MATTY) and Critical Care Attending Cardiac Core Medications: ASA and Statin EF: 55% Blood Conservation: None noted in post-operative period Public Health Training Assistant: MIESHA Yuan with the [facility] (more content not included)... Normal [facility] [facility] Vital signsOrdered By: Chip Mobley on 06-04-2023 Heart rate 87 /min bpm [employer] Work Phone: XR CHEST 1 VIEWon 06-04-2023 XR CHEST 1 VIEW Patient Name: SYLVESTER LACY : 1960 Exam Date/Time: 06/04/2023 07:32 Procedure: XR CHEST 1 VIEW Ordering Provider: LOPES ANDREW Reason For Exam: Shortness of breath EXAM TYPE: RADIOLOGIC EXAMINATION, CHEST, SINGLE VIEW FRONTAL (CXR SINGLE VIEW) EXAM DATE AND TIME: 06/04/2023 7:32 AM EDT INDICATION: Respiratory distress COMPARISON: 06/03/2023 TECHNIQUE: A single frontal view of the thorax was obtained and reviewed. Special views: None. IMPRESSION: 1. Lines/Tubes/Devices/ Hardware: Leads noted. Chest tube has been removed.. Please confirm position and function of any catheters or attempted catheters clinically. 2. Lungs: No convincing acute process.. Limited due to portable technique. Consider follow-up with PA and lateral chest for persistent symptoms. 3. Pleura: No significant effusion. No significant pneumothorax. 4. Heart and mediastinum: Limited due to technique. 5. Upper abdomen: No acute process seen. 6. Thorax:No acute bony process Report Dictated on Electronically Signed By: Omid Pérez MD Electronically Signed Date/Time: 06/04/2023 8:05 AM EDT [facility] XR Chest Single viewon 06-03 1. Lines/Tubes/Devices/ Hardware: Leads noted. Chest tube has been removed.. Please confirm position and function of any catheters or attempted catheters clinically. 2. Lungs: No convincing acute process.. Limited due to portable technique. Consider follow-up with PA and lateral chest for persistent symptoms. 3. Pleura: No significant effusion. No significant pneumothorax. 4. Heart and mediastinum: Limited due to technique. 5. Upper abdomen: No acute process seen. 6. Thorax:No acute bony process Report Dictated on Electronically Signed By: Omid Pérez MD Electronically Signed Date/Time: 06/04/2023 8:05 AM EDT [facility] [employer] [facility] Patient Name: SYLVESTER LACY : 1960 Exam Date/Time: 06/04/2023 07:32 Procedure: XR CHEST 1 VIEW Ordering Provider: LOPES ANDREW Reason For Exam: Shortness of breath EXAM TYPE: RADIOLOGIC EXAMINATION, CHEST, SINGLE VIEW FRONTAL (CXR SINGLE VIEW) EXAM DATE AND TIME: 06/04/2023 7:32 AM EDT INDICATION: Respiratory distress COMPARISON: 06/03/2023 TECHNIQUE: A single frontal view of the thorax was obtained and reviewed. Special views: None. [facility] [employer] [facility] Omid Pérez MD - 06/04/2023 Patient Name: SYLVESTER LACY : 1960 Exam Date/Time: 06/04/2023 07:32 Procedure: XR CHEST 1 VIEW Ordering Provider: LOPES ANDREW Reason For Exam: Shortness of breath EXAM TYPE: RADIOLOGIC EXAMINATION, CHEST, SINGLE VIEW FRONTAL (CXR SINGLE VIEW) EXAM DATE AND TIME: 06/04/2023 7:32 AM EDT INDICATION: Respiratory distress COMPARISON: 06/03/2023 TECHNIQUE: A single frontal view of the thorax was obtained and reviewed. Special views: None. IMPRESSION: 1. Lines/Tubes/Devices/ Hardware: Leads noted. Chest tube has been removed.. Please confirm position and function of any catheters or attempted catheters clinically. 2. Lungs: No convincing acute process.. Limited due to portable technique. Consider follow-up with PA and lateral chest for persistent symptoms. 3. Pleura: No significant effusion. No significant pneumothorax. 4. Heart and mediastinum: Limited due to technique. 5. Upper abdomen: No acute process seen. 6. Thorax:No acute bony process Report Dictated on Electronically Signed By: Omid Pérez MD Electronically Signed Date/Time: 06/04/2023 8:05 AM EDT [facility] Radiology Study observation (narrative) Albert rosado XR Chest Single viewOrdered By: Omid Pérez on 06-04-2023 [facility] [employer] Work Phone: BASIC METABOLIC PANELon 03-0 Anion gap [Moles/Vol] 8 mmol/L Normal 3-13 [facility] Comment on above: Performed By: #### L AB103, LAB15 ####Line Manager: ALONZO ALMODOVAR ([phone])[id number] Calcium [Mass/Vol] 8.6 mg/dL Normal 8.4-10.4 [facility] Comment on above: Performed By: #### L AB103, LAB15 ####Line Manager: ALONZO ALMODOVAR ([phone])[facility] [place] [address] Chloride [Moles/Vol] 103 mmol/L Normal 98-107 [facility] Comment on above: Performed By: #### L AB103, LAB15 ####Line Manager: ALONZO ALMODOVAR ([phone])[facility] ([facility])[address] [place] [address] CO2 [Moles/Vol] 24 mmol/L Normal 22-30 [facility] Comment on above: Performed By: #### L AB103, LAB15 ####Line Manager: ALONZO ALMODOVAR ([phone])[facility])[address] [place] [address] Creatinine [Mass/Vol] 0.88 mg/dL Normal 0.66-1.25 [facility] Comment on above: Performed By: #### L AB103, LAB15 ####Line Manager: ALONZO ALMODOVAR ([phone])[facility])[address] [place] [address] GLOMERULAR FILTRATION RATE ML/MIN/1.73 SQ M.PREDICTED >90.0 Normal >60.0 [facility] Comment on above: Result Comment: Calc ulation based on the Chronic Kidney Disease Epidemiology Collaboration (CKD-EPI) equation refit without adjustment for race Performed By: #### L AB103, LAB15 ####Line Manager: ALONZO ALMODOVAR ([phone])[facility])[address] [place] [address] Glucose [Mass/Vol] 149 mg/dL High 70-100 [facility] Comment on above: Performed By: #### L AB103, LAB15 ####Line Manager: ALONZO [id number])[facility])[address] [place] [address] Potassium [Moles/Vol] 4.2 mmol/L Normal 3.5-5.1 [facility] Comment on above: Performed By: #### L AB103, LAB15 ####Line Manager: ALONZO [id number])[facility] ([facility])[address] [place] [address] Sodium [Moles/Vol] 134 mmol/L Low 135-145 [facility] Comment on above: Performed By: #### L AB103, LAB15 ####Line Manager: ALONZO ALMODOVAR ([phone])[facility] ([facility])[address] [place] [address] Urea nitrogen [Mass/Vol] 20 mg/dL Normal 9-20 [facility] Comment on above: Performed By: #### L AB103, LAB15 ####Line Manager: ALONZO ALMODOVAR ([phone])[facility] ([facility])[address] [place] [address] Basic metabolic 1998 panelon 06-03-2023 Anion gap [Moles/Vol] 8 mmol/L 3 - 13 mmol/L [facility] Calcium [Mass/Vol] 8.6 mg/dL 8.4 - 10. 4 mg/dL [facility] Chloride [Moles/Vol] 103 mmol/L 98 - 10 7 mmol/L [facility] CO2 [Moles/Vol] 24 mmol/L 22 - 30 mmol/L [facility] Creatinine [Mass/Vol] 0.88 mg/dL 0.66 - 1.25 mg/dL [facility] GFR/1.73 sq M.predicted MDRD (S/P/Bld) [Vol rate/Area] - PINF [facility] Comment on above: Calculation based on the Chronic Kidney Disease Epidemiology Collaboration (CKD-EPI) equation refit without adjustment for race Glucose [Mass/Vol] 149 mg/dL High 70 - 100 mg/dL [facility] Interpretation and review of laboratory results Abnormal [facility] th Potassium [Moles/Vol] 4.2 mmol/L 3.5 - 5.1 mmol/L [facility] Sodium [Moles/Vol] 134 mmol/L Low 135 - 145 mmol/L [facility] Urea nitrogen [Mass/Vol] 20 mg/dL 9 - 20 mg/d L [facility] CBC (HEMOGRAM)on 06-03-2023 Erythrocyte distribution width (RBC) [Ratio] 14.3 % Normal 11.5-15.0 [facility] Comment on above: Performed By: #### L AB294 ####Line Manager: ALONZO ALMODOVAR ([phone])[facility])[address] [place] [address] Hematocrit (Bld) [Volume fraction] 32.0 % Low 40.0-52.0 [facility] Comment on above: Performed By: #### L AB294 ####Line Manager: ALONZO ALMODOVAR ([phone])[facility])[address] [place] [address] Hemoglobin (Bld) [Mass/Vol] 10.3 g/dL Low 13.0-18.0 [facility] Comment on above: Performed By: #### L AB294 ####Line Manager: ALONZO ALMODOVAR ([phone])[facility])[address] [place] [address] MCH (RBC) [Entitic mass] 28.8 pg Normal 26.0-34.0 [facility] Comment on above: Performed By: #### L AB294 ####Line Manager: ALONZO ALMODOVAR ([phone])[facility] ([facility])[address] [place] [address] MCHC 32.2 % Normal 30.5-36.0 [facility] Comment on above: Performed By: #### L AB294 ####Line Manager: ALONZO ALMODOVAR ([phone])[facility])[address] [place] [address] MCV (RBC) [Entitic vol] 89.4 fL Normal 77.0-99.0 [facility] Comment on above: Performed By: #### L AB294 ####Line Manager: ALONZO ALMODOVAR ([phone])[facility])[address] [place] [address] Platelet mean volume (Bld) [Entitic vol] 9.9 fL Normal 9.0-12.7 [facility] Comment on above: Performed By: #### L [id number] ####Line Manager: ALONZO ALMODOVAR ([phone])[facility])[address] [place] [address] Platelets (Bld) [#/Vol] 140 10*3/uL Normal 140-440 [facility] Comment on above: Performed By: #### L [id number] ####Line Manager: ALONZO ALMODOVAR ([phone])[address] RBC (Bld) [#/Vol] 3.58 10*6/uL Low 4.40-5.90 [facility] Comment on above: Performed By: #### L [id number] ####Line Manager: ALONZO ALMODOVAR ([phone])[facility])[address] [place] [address] WBC (Bld) [#/Vol] 7.5 10*3/uL Normal 3.6-10.7 [facility] Comment on above: Performed By: #### L [id number] ####Line Manager: ALONZO ALMODOVAR ([phone])[facility])[address] [place] [address] CBC panel Auto (Bld)on 06-02 Erythrocyte distribution width (RBC) [Ratio] 14.3 % 11.5 - 15.0 % [facility] Hematocrit (Bld) [Volume fraction] 32.0 % Low 40.0 - 52.0 % [facility] Hemoglobin (Bld) [Mass/Vol] 10.3 g/dL Low 13.0 - 18.0 g/dL [facility] Interpretation and review of laboratory results Abnormal [facility] MCH (RBC) [Entitic mass] 28.8 pg 26. 0 - 34.0 pg [facility] MCHC (RBC) [Mass/Vol] 32.2 % 30.5 - 36.0 % [facility] MCV (RBC) [Entitic vol] 89.4 fL 77.0 - 99.0 fL [facility] Platelet mean volume (Bld) [Entitic vol] 9.9 fL 9.0 - 12.7 fL [facility] Platelets (Bld) [#/Vol] 140 10*3/uL 140 - 440 10*3/uL [facility] RBC (Bld) [#/Vol] 3.58 10*6/uL Low 4.40 - 5.9 0 10*6/uL [facility] WBC (Bld) [#/Vol] 7.5 10*3/uL 3.6 - 10.7 10*3/uL [facility] - Chemistry and C hemistry - challengeon 06-03-2023 Glucose [Mass/Vol] 119 mg/dL High 70 - 100 mg/dL [facility] Magnesium [Mass/Vol] 2.2 mg/dL 1.6 - 2 .3 mg/dL [facility] Laboratory - Coagulationon 0 06-03-2023 aPTT Coag (PPP) [Time] 27.4 s 20.0 - 30.5 s [facility] INR Coag (PPP) [Relative time] 1.1 {INR} 0.9 - 1.1 [facility] Comment on above: Recommended Anticoag ulant Therapy: SEE BELOW ----- INR of 2.0 - 3.0 : - Prophylaxis of Venous Thrombosis (high-risk surgery) - Treatment of Venous Thrombosis - Treatment of Pulmonary Embolism (Includes tissue heart valves, Acute Myocardial Infarction to prevent systemic embolism, Valvular Heart Disease, and Atrial Fibrillation) ----- INR of 2.5 - 3.5 : - Mechanical Prosthetic Valves (high risk) - If oral anticoagulant therapy is used to prevent Myocardial Infarction PT Coag (Bld) [Time] 11.2 s 9.0 - 12.0 s [facility] MAGNESIUMon 06-03-2023 Magnesium [Mass/Vol] 2.2 mg/dL Normal 1.6-2.3 [facility] Comment on above: Performed By: #### L AB103, LAB15 ####Line Manager: ALONZO ALMODOVAR ([phone])[facility] ([facility])[address] [place] [address] Magnesium [Mass/Vol]on 06-02 Interpretation and review of laboratory results Normal [facility] No Panel Informationon 06-02 Interpretation and review of laboratory results Abnormal [facility] Performed by: [facility], [address] [address] CLIA ID: [id number] [facility] Interpretation and review of laboratory results Normal [facility] Radiology Study observation (narrative) Albert Mueller alth PROTIME AND APTTon aPTT Coag (Bld) [Time] 27.4 s Normal 20.0-30.5 [facility] Comment on above: Performed By: #### L [id number] ####Line Manager: ALONZO ALMODOVAR ([phone])[facility] ([facility])[address] [place] [address] INR Coag (PPP) [Relative time] 1.1 {INR} Normal 0.9-1.1 [facility] Comment on above: Result Comment: Kam mmended Anticoagulant Therapy: SEE BELOW ----- INR of 2.0 - 3.0 : - Prophylaxis of Venous Thrombosis (high-risk surgery) - Treatment of Venous Thrombosis - Treatment of Pulmonary Embolism (Includes tissue heart valves, Acute Myocardial Infarction to prevent systemic embolism, Valvular Heart Disease, and Atrial Fibrillation) ----- INR of 2.5 - 3.5 : - Mechanical Prosthetic Valves (high risk) - If oral anticoagulant therapy is used to prevent Myocardial Infarction Performed By: #### L [id number] ####Line Manager: ALONZO ALMODOVAR ([id number])[facility] ([facility])[address] [place] [address] PT Coag (PPP) [Time] 11.2 s Normal 9.0-12.0 [facility] Comment on above: Performed By: #### L [id number] ####Line Manager: ALONZO ALMODOVAR ([phone])[facility])[address] [place] [address] Progress Noteon 06-03-2023 Progress Note PHYSICAL THERAPY [facility] Treatment Note Name/MRN: Terry Lacy ([id number]) Date of : 1960 Age: 62 y.o. Room/Bed: T1-124/T1-124 A Discharge Recommendation: Home with assist PRN Equipment Needed: No Prior Level of Function ADL Assistance: Independent Ambulation Assistance: Independent Transfer Assistance: Independent Assessment Pt able to ambulate increased distance this date and required less assistance. He was Min A for bed mobility and CGA for transfers and ambulation. Will continue to recommend Home with assistance PRN at discharge. Subjective Pt supine in bed. Agreeable to PT session. Cleared by nursing Pain: Pt denies any current pain. Medical Precautions: No active isolations Proper PPE donned/doffed in accordance with facility standards. Fall Risk: [place] Fall Risk Score: 50 (High Risk) Precautions/Restrict ions: Sternal Precautions: No Pushing, No Pulling, No Lifting Greater Than 10 lbs and modified sternal precautions for move in the tube Lines/Drains/Airways : PIV, 3L O2 via NC Overall Cognitive Status: WFL Overall Orientation Status: Oriented x4 Family/Caregiver Present: none Objective Ambulation Ambulation 1 Assistive device(s) used: rollator Assist level: Contact Guard Distance (ft): 650' Quality of gait: slow marcelino Transfers/Mobility Sit to stand: Contact Guard Stand to sit: Contact Guard EOB x1 at rollator, did not required UE assist Device(s) used: rollator Bed Mobility Supine to sit: Min Assist HOB elevated, good maintenance of sternal precautions. Slight trunk assist Plan Continue acute PT per plan of care. Safety/Education Safety Safety Devices in place: call light within reach, nurse notified, and left on commode Restraints: No Education Education Given To: patient Education Provided: PT Role, PT Goals, Gait Training, Plan of Care, Precautions, and Transfer Training Education Method: Verbal Barriers to Learning: None Education Outcome: Verbalized Understanding Outcome Measures AM-PAC AM-PAC Inpatient Mobility Raw Score (No Stairs) : 18 JH-HLM JH-HLM Score: Walked 250 ft or more (i.e. several laps on unit) Goals Patient Stated Goal: Decrease pain/discomfort and go home Encounter Problems Encounter Problems (Active) Cardiac Patient will perform bed mobility with independence in order to improve independence and prepare for out of bed mobility. (Progressing) Start: 06/02/23 Expected End: 06/30/23 Patient will complete sit to stand transfer with modified independence to none in order to improve safety and prepare for out of bed mobility. (Progressing) Start: 06/02/23 Expected End: 06/30/23 Patient will ambulate 500 feet or ambulate 5 minutes with modified independence with RPE of 14 or lower. (Progressing) Start: 06/02/23 Expected End: 06/30/23 Patient will ascend and descend 5 stairs with modified independence rail for balance only. (Not Addressed) Start: 06/02/23 Expected End: 06/30/23 Patient will be independent with P&C exercises. (Not Addressed) Start: 06/02/23 Expected End: 06/30/23 Patient will be independent with managing secretions and home walking program. (Progressing) Start: 06/02/23 Expected End: 06/30/23 Safety Patient will recall/demonstrate sternal precautions with all functional mobility in order to promote healing and safety with functional tasks. (Progressing) Start: 06/02/23 Expected End: 06/30/23 Therapy Time Individual Co-treatment Time In 1133 Time Out 1146 Minutes 13 Timed Code Treatment Minutes: (1 gait) Lynnette Lira, PT [facility] Progress Note Department of Internal Medicine Division of Endocrinology, Diabetes, & Metabolism Endocrinology Note Patient Name: Sylvester Lacy : 1960 AGE: 62 y.o. Room[facility]: [facility] A Admission Date: 05/31/2023 Visit Date: 06/03/2023 Reason for Endocrine Consult: Severe MV-CAD s/p CABG Provider/Team Requesting Consult: Darion Lopes APRN-ROTARY DRILL OPERATOR PCP: Crissy Engle DO Outpt Chassis Engineer: No ASSESSMENT: Prediabetes/stress hyperglycemia Severe MV-CAD s/p CABG Unstable angina Obesity Body mass index is 35.29 kg/m?. HTN HLP PLAN: - BG stable without insulin requirement - discontinue SS insulin - no need for regular glucose monitoring - discussed importance of healthy lifestyle - will sign off ANTICIPATED ENDOCRINE HOME GOING RECOMMENDATIONS: Optimized for Discharge from Endocrine standpoint: YES Home Going Endocrine Rx Recommendations-- None Outpt Follow Up-- Follow up with PCP for prediabetes SUBJECTIVE/HPI: CHIEF COMPLAINT: No chief complaint on file. -pt seen at bedside -No acute events overnight -no insulin requirements from SS -eating well -no n/v -ambulated -denies CP/SOB -states he was prescribed ranolazine and was taking this prior to admission Glucose Date/Time Value Ref Range Status 06/03/2023 08:33 AM 119 (H) 70 - 100 mg/dL Final 06/02/2023 12:22 PM 125 (H) 70 - 100 mg/dL Final 06/02/2023 08:21 AM 110 (H) 70 - 100 mg/dL Final 06/02/2023 06:18 AM 111 (H) 70 - 100 mg/dL Final 06/02/2023 04:10 AM 99 70 - 100 mg/dL Final 06/02/2023 01:54 AM 117 (H) 70 - 100 mg/dL Final Review of Systems ROS negative except for those mentioned in HPI. OBJECTIVE: Vitals: 06/03/23 0000 06/03/23 0400 06/03/23 0600 06/03/23 0800 BP: 134/82 114/70 121/78 BP Location: Right arm Right arm Patient Position: Lying Lying Pulse: 81 90 81 Resp: 16 16 22 Temp: 36.8 ?C (98.2 ?F) 37.1 ?C (98.8 ?F) (!) 35.7 ?C (96.3 ?F) TempSrc: Temporal Temporal SpO2: 99% 93% 97% Weight: 240 lb (109 kg) Height: Physical Exam Constitutional: General: He is awake. He is not in acute distress. Eyes: General: No scleral icterus. Conjunctiva/sclera: Conjunctivae normal. Cardiovascular: Rate and Rhythm: Normal rate and regular rhythm. Pulses: Normal pulses. Heart sounds: Normal heart sounds. Comments: Sternotomy site clean and intact Pulmonary: Effort: Pulmonary effort is normal. No respiratory distress. Breath sounds: Normal breath sounds. Abdominal: General: There is no distension. Palpations: Abdomen is soft. Tenderness: There is no abdominal tenderness. Musculoskeletal: Right lower leg: No edema. Left lower leg: No edema. Skin: General: Skin is warm and dry. Neurological: Mental Status: He is alert. Motor: No weakness. Psychiatric: Mood and Affect: Mood normal. Behavior: Behavior normal. 24 hour intake/output: Intake/Output Summary (Last 24 hours) at 06/03/2023 1040 Last data filed at 06/03/2023 0716 Gross per 24 hour Intake 1203 ml Output 1688 ml Net -485 ml Diet: Adult diet Regular; Low Sodium (2 gm); 5 carb choices (75 gm/meal) Medications (as per EMR): HomeMeds: Current Outpatient Medications Medication Instructions aspirin 81 mg, Oral, Daily carvedilol (COREG) 6.25 mg, Oral, 2 times daily with meals cholecalciferol (CHOLECALCIFEROL) 25 mcg, Oral, Daily ibuprofen 800 mg, Oral, 3 times daily PRN isosorbide mononitrate ER (IMDUR) 60 mg, Oral, Daily, Do not crush or chew. Krill Oil 500 MG capsule 1 capsule, Oral, Daily lisinopril 2.5 mg, Oral, Daily Multiple Vitamin (multivitamin) capsule 1 capsule, Oral, Daily nitroglycerin (NITROSTAT) 0.4 mg, SubLINGual, Every 5 min PRN ranolazine (RANEXA) 1,000 mg, Oral, 2 times daily, Do not crush, chew, or split. rosuvastatin (CRESTOR) 10 mg, Oral, Daily zinc gluconate 50 mg, Oral, Daily Scheduled Meds:acetaminophen, 1,000 mg, Oral, q8h amLODIPine, 2.5 mg, Oral, Daily aspirin, 81 mg, Oral, Daily carvedilol, 3.125 mg, Oral, BID WC chlorhexidine, 15 mL, Mouth/Throat, BID furosemide, 40 mg, IntraVENous, Once heparin, 5,000 Units, SubCUTAneous, BID insulin lispro, 0-6 Units, SubCUTAneous, TID WC Lidocaine, 1 patch, Topical, Daily methocarbamol, 500 mg, Oral, 4 times per day mupirocin, , Nasal, BID [START ON 06/04/2023] pantoprazole, 40 mg, Oral, qAM AC polyethylene glycol (PEG) 3350, 17 g, Oral, Daily rosuvastatin, 40 mg, Oral, Daily senna-docusate sodium, 2 tablet, Oral, Nightly sodium chloride 0.9%, 10 mL, IntraVENous, 2 times per day Continuous Infusions: PRN Meds:PRN medications: calcium gluconate, dextrose, dextrose, glucagon (rDNA), glucose, ipratropium-albutero l, magnesium hydroxide, magnesium sulfate OR magnesium sulfate, naloxone, ondansetron ODT OR ondansetron, oxyCODONE OR oxyCODONE, potassium chloride CR, sodium chloride 0.9% Diagnostic Workup: I reviewed pertinent Laboratory results, Radiographic results, and Oth (more content not included)... Normal [facility] Progress Note Attestation signed by Susan Covington DO at 06/04/2023 1:30 PM (Updated) I have personally performed a [id number] diagnostic evaluation on this patient on date of service 06/03/23. History, labs, imaging studies, and electronic medical record have been reviewed by me. This note documented by the []pump house technician [x]MATTY reflects my history, exam, and medical decision making. I have reviewed and agree with the care plan. Changes were made in the orders as necessary. ROS documentation was reviewed and negative unless otherwise stated in HPI. Assessment: -POD 2 CABGx5 for mvCAD -acute post op blood loss anemia -HTN/HLD -hx NVST -EtOH use -obesity Plan: -stable on 2L NC, cont to wean. Encourage pulm toilet, IS/acapella, OOB. Has been up walking laps around the unit. -ASA, statin, start BB -lasix x1 today -plan to DC chest tubes and Isaac later -cont norvasc for radial artery harvest -PT/OT Cardiothoracic Surgery/CCM Progress Note PATIENT NAME: Sylvester Lacy DATE: 06/03/23 HPI: 62 y.o. 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 Pmhx including RCA and PDA stents in 2008, HTN, Hx of NSVT, Hx of PE, former tobacco use and current ETOH use. He was see in OP setting 05/31/23 and noted to have unstable angina with palpitations and he was direct admitted for urgent CABG. Preoperative testing was completed and he consented to surgical revascularization. Of note patient lives alone at home. 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 Cardiac cath showed 90% D1, 90% D2, 80% mLAD, 90% ostial OM1, 80% mCirc, 90% mRCA Surgery: 05/31/23: CABGx5 (CAMPBELL to LAD, Free left radial to OM2, SVG to right pDA, SVG to Diag1, SVG to Diag2) left radial harvest R leg EVH and PAM with Dr. Huang Interval History: 06/01/23: POD #2 pt doing well overnight - no new issues - minimal CT output - labs stable - pain well controlled Review of Systems Constitutional: Negative for diaphoresis, fatigue and fever. Respiratory: Negative for cough, shortness of breath and wheezing. Cardiovascular: Negative for chest pain, palpitations and leg swelling. Gastrointestinal: Negative for abdominal distention, constipation and diarrhea. Skin: Negative for color change, pallor and rash. Objective: Last BM Date: 05/31/23 Vitals: BP: 121/78, MAP (mmHg): 84, BP Method: Automatic Heart Rate: 81 Resp: 22 Temp: (!) 35.7 ?C (96.3 ?F), Temp Source: Temporal BMI (Calculated): 35.43 CXR: BMP: Recent Labs 05/31/23 1501 06/01/23 1245 06/02/23 0004 06/03/23 0405 NA 137 139 136 134* K 4.0 4.3 4.5 4.2 CL 103 109* 107 103 CO2 28 23 22 24 BUN 12 14 17 20 CREATININE 0.75 0.79 0.83 0.88 CALCIUM 9.4 8.7 7.9* 8.6 MG 2.0 2.9* 2.2 2.2 PHOS 3.2 3.2 -- -- CBC: Recent Labs 06/01/23 1245 06/02/23 0004 06/03/23 0405 WBC 5.6 8.1 7.5 HGB 10.4 8.9* 9.8* 10.3* HCT 27.1* 29.7* 32.0* PLT 136* 146 140 MCV 88.9 87.9 89.4 RDW 14.2 14.2 14.3 INR: Recent Labs 06/01/23 1245 06/02/23 0004 06/03/23 0405 INR 1.5* 1.2* 1.1 Physical Exam Cardiovascular: Rate and Rhythm: Regular rhythm. Heart sounds: Normal heart sounds. No murmur heard. No friction rub. No S4 sounds. Pulmonary: Effort: Pulmonary effort is normal. Skin: General: Skin is warm and dry. Capillary Refill: Capillary refill takes less than 2 seconds. Findings: Bruising and ecchymosis present. Comments: MSCI Intact Right EVH intact Left radial artery harvest sites intact RIJ introducer Neurological: Mental Status: He is alert. Psychiatric: Behavior: Behavior is cooperative. Assessment: MVCAD s/p CABGx5 05/31/23 Hx NSVT HLD HTN ETOH use Former Tobacco use Post operative Pulm Management: Normal Post-operative Course Post-operative Atrial Fibrillation: []Yes [x] No Plan: Patient Status: ICU GDMT for CAD with EF preserved - asa - Crestor - start BB today - lasix IV 40mg - Dc isaac later - DC CT Hold home ranexa, lisinopril PT/OT: Home with home health Pulmonary hygiene: IS and Acapella GI prophy: PO protonix DVT prophy:TEDs, SCDs, and Heparin SubQ Disposition: TBD Central Line: [x]Yes [] No Arterial Line: []Yes [] No Isaac: [x]Yes [] No Restraints: []Yes [x] No Patient discussed and plan of day developed from multidisciplinary rounds between Cardiothoracic Surgery (Cardiothoracic Surgeon, MATTY) and Critical Care Attending Cardiac Core Medications: ASA and Statin EF: 55% Blood Conservation: None noted in post-operative period Public Health Training Assistant: MIESHA Yuan with the [facility] XR CHEST 1 VIEWon 06-03-2023 XR CHEST 1 VIEW Patient Name: SYLVESTER LACY : 1960 Exam Date/Time: 06/03/2023 05:23 Procedure: XR CHEST 1 VIEW Ordering Provider: LOPES ANDREW Reason For Exam: Shortness of breath PORTABLE CHEST CLINICAL INDICATION: Dyspnea. COMPARISON: 06/02/2023. TECHNIQUE: A single frontal view of thorax was obtained and reviewed. IMPRESSION: 1. Lines/ tubes/ devices: Sternotomy wires and mediastinal surgical clips. Right-sided thoracostomy tube is directed toward the right lung apex whereas left thoracostomy tube is directed toward left lung base. 2. Lungs and Pleura: Minimal right lower lobe subsegmental atelectasis versus pleural fluid within a horizontal fissure, unchanged. No infiltrate or mass. No pneumothorax. 3. Heart and mediastinum: Mild cardiomegaly, unchanged. 4. Bones: Thoracic degenerative spondylosis. Right AC joint arthrosis. Report Dictated on Electronically Signed By: Kranthi Lynch DO Electronically Signed Date/Time: 06/03/2023 7:17 AM EST [facility] XR Chest Single viewon 06-02 1. Lines/ tubes/ devices: Sternotomy wires and mediastinal surgical clips. Right-sided thoracostomy tube is directed toward the right lung apex whereas left thoracostomy tube is directed toward left lung base. 2. Lungs and Pleura: Minimal right lower lobe subsegmental atelectasis versus pleural fluid within a horizontal fissure, unchanged. No infiltrate or mass. No pneumothorax. 3. Heart and mediastinum: Mild cardiomegaly, unchanged. 4. Bones: Thoracic degenerative spondylosis. Right AC joint arthrosis. Report Dictated on Electronically Signed By: Kranthi Lynch DO Electronically Signed Date/Time: 06/03/2023 7:17 AM [facility] [employer] [facility] Name[facility] SYL[facility] 1960 [id number] Exam Date/Time: 06/03/2023 05:23 Procedure: XR CHEST 1 VIEW Ordering Provider: LOPES ANDREW Reason For Exam: Shortness of breath PORTABLE CHEST CLINICAL INDICATION: Dyspnea. COMPARISON: 06/02/2023. TECHNIQUE: A single frontal view of thorax was obtained and reviewed. [facility] [place] [employer] Kranthi Lynch DO - 06/03/2023 Patient Name: SYLVESTER LACY : 1960 Exam Date/Time: 06/03/2023 05:23 Procedure: XR CHEST 1 VIEW Ordering Provider: LOPES ANDREW Reason For Exam: Shortness of breath PORTABLE CHEST CLINICAL INDICATION: Dyspnea. COMPARISON: 06/02/2023. TECHNIQUE: A single frontal view of thorax was obtained and reviewed. IMPRESSION: 1. Lines/ tubes/ devices: Sternotomy wires and mediastinal surgical clips. Right-sided thoracostomy tube is directed toward the right lung apex whereas left thoracostomy tube is directed toward left lung base. 2. Lungs and Pleura: Minimal right lower lobe subsegmental atelectasis versus pleural fluid within a horizontal fissure, unchanged. No infiltrate or mass. No pneumothorax. 3. Heart and mediastinum: Mild cardiomegaly, unchanged. 4. Bones: Thoracic degenerative spondylosis. Right AC joint arthrosis. Report Dictated on Electronically Signed By: Kranthi Lynch DO Electronically Signed Date/Time: 06/03/2023 7:17 AM EST [facility] Radiology Study observation (narrative) [facility] XR Chest Single viewOrdered By: Kranthi Lynch on 06-03-2023 [facility] [employer] Work Phone: BASIC METABOLIC PANELon 03-0 Anion gap [Moles/Vol] 7 mmol/L Normal 3-13 [facility] Comment on above: Performed By: #### L AB15, [id number] #### Line Manager: ALONZO ALMODOVAR ([phone]) [facility]) [address] [place] [address] Calcium [Mass/Vol] 7.9 mg/dL Low 8.4-10.4 [facility] Comment on above: Performed By: #### L AB15, [id number] #### Line Manager: ALONZO ALMODOVAR ([phone]) [facility]) [address] [place] [address] Chloride [Moles/Vol] 107 mmol/L Normal 98-107 [facility] Comment on above: Performed By: #### L AB15, [id number] #### Line Manager: ALONZO ALMODOVAR ([phone]) [facility] [address] [place] [address] CO2 [Moles/Vol] 22 mmol/L Normal 22-30 [facility] Comment on above: Performed By: #### L AB15, [id number] #### Line Manager: ALONZO ALMODOVAR ([phone]) [facility]) [address] [place] [address] Creatinine [Mass/Vol] 0.83 mg/dL Normal 0.66-1.25 [facility] Comment on above: Performed By: #### L AB15, [id number] #### Line Manager: ALONZO ALMODOVAR ([phone]) [facility]) [address] [place] [address] GLOMERULAR FILTRATION RATE ML/MIN/1.73 SQ M.PREDICTED >90.0 Normal >60.0 [facility] Comment on above: Result Comment: Calc ulation based on the Chronic Kidney Disease Epidemiology Collaboration (CKD-EPI) equation refit without adjustment for race Performed By: #### L AB15, [id number] #### Line Manager: ALONZO ALMODOVAR ([phone]) [facility]) [address] [place] [address] Glucose [Mass/Vol] 111 mg/dL High 70-100 [facility] Comment on above: Performed By: #### L AB15, [id number] #### Line Manager: ALONZO ALMODOVAR ([phone]) [facility]) [address] [place] [address] Potassium [Moles/Vol] 4.5 mmol/L Normal 3.5-5.1 [facility] Comment on above: Performed By: #### L AB15, [id number] #### Line Manager: ALONZO ALMODOVAR ([phone]) [facility]) [address] [place] [address] Sodium [Moles/Vol] 136 mmol/L Normal 135-145 [facility] Comment on above: Performed By: #### L AB15, [id number] #### Line Manager: ALONZO ALMODOVAR ([phone]) [facility] [address] [place] [address] Urea nitrogen [Mass/Vol] 17 mg/dL Normal 9-20 [facility] Comment on above: Performed By: #### L AB15, [id number] #### Line Manager: ALONZO ALMODOVAR ([phone]) [facility] [address] [place] [address] Basic metabolic 1998 panelon 06-02-2023 Anion gap [Moles/Vol] 7 mmol/L 3 - 13 mmol/L [facility] Calcium [Mass/Vol] 7.9 mg/dL Low 8.4 - 10. 4 mg/dL [facility] Chloride [Moles/Vol] 107 mmol/L 98 - 10 7 mmol/L [facility] CO2 [Moles/Vol] 22 mmol/L 22 - 30 mmol/L [facility] Creatinine [Mass/Vol] 0.83 mg/dL 0.66 - 1.25 mg/dL [facility] GFR/1.73 sq M.predicted MDRD (S/P/Bld) [Vol rate/Area] - PINF [facility] Comment on above: Calculation based on the Chronic Kidney Disease Epidemiology Collaboration (CKD-EPI) equation refit without adjustment for race Glucose [Mass/Vol] 111 mg/dL High 70 - 100 mg/dL [facility] Interpretation and review of laboratory results Abnormal [facility] Potassium [Moles/Vol] 4.5 mmol/L 3.5 - 5.1 mmol/L [facility] Sodium [Moles/Vol] 136 mmol/L 135 - 145 mmol/L [facility] Urea nitrogen [Mass/Vol] 17 mg/dL 9 - 20 mg/d L [facility] CALCIUM, IONIZEDon 4 CALCIUM IONIZED 4.00 mg/dL Low 4.30-5.20 [facility] Comment on above: Order Comment: Obtai n PRN and check ionized Ca level if serum Ca level less than 8.0 Performed By: #### L AB54 #### Line Manager: ALONZO ALMODOVAR ([phone]) [facility] [address] [place] [address] PH, IONIZED CALCIUM 7.42 Normal 7.31-7.46 [facility] Comment on above: Order Comment: Obtai n PRN and check ionized Ca level if serum Ca level less than 8.0 Performed By: #### L AB54 #### Line Manager: ALONZO ALMODOVAR ([phone]) [facility] ([facility]) [address] [place] [address] [facility] 06-02-2023 [facility] Care Managment Initial Assessment Date: 06/02/2023 Patient Name: Sylvester Lacy : 1960 Patient Information Source of Information: Patient Cognition/Language: WFL - Within Functional Limits Permission given to speak with patient lead generation representative/careg iver as indicated: Yes Confirmation of Payer with patient/family: Yes [place]: [place] : [place] () Confirmation of Primary Care Physician: Confirmed PCP Name: Dr. Engle Seen in last 2 years?: Yes Primary Caregiver: Self If assistance needed, confirmed caregiver ready, willing and able to care for patient at discharge: Confirmed with: Living Arrangements Current Residence: House Number of Floors 1 Number of Entry Steps: 1 Bed/Bath Levels: Both first floor Facility: Facility Name: Plan to Return: Lives with: Alone Support Systems: Family members, Friends/neighbors Activities of Daily Living Ambulation: Independent Bathing/Dressing: Independent Elimination/Continen ce/Toileting: Independent Feeding: Independent Who Assists with Activities of Daily Living: Instrumental Activities of Daily Living Prescription Coverage: No Pharmacy Used: [place] [facility] Medication Management: Independent Transportation/Shopp ing: Independent Transportation Mode: Car Needs Assistance with Transportation at Discharge: No Meal Preparation: Independent Laundry/Cleaning: Independent Finances/Bill Paying: Independent Communication: Independent Types of Care Services/Equipment Utilized Care Services: Dialysis Type: Durable Medical Equipment: Patient's Goal/Discharge Plan Patient expects to be discharged to: SNF Discharge Planning Actions: Continue to follow Patient's Choice Rights and [employer] and Collaborative Relationships Disclosed as Indicated for Post-Acute Care: Interdisciplinary Team Engagement: PT/OT, Home Health Care Social Work Referral for: Additional Information: Patient admitted to [facility]V ICU s/p CABG x 5 POD # 1. Spoke with patient at bedside, introduced self and role. Patient from home alone, is independent, has PCP but no prescription coverage-uses the [employer] or [employer] [facility], will have a ride home but concerned with home going alone and agreeable to SNF ([place]) if recommended by therapy. Daphne Chou RN Normal [facility] CBC (HEMOGRAM)on 06-02-2023 Erythrocyte distribution width (RBC) [Ratio] 14.2 % Normal 11.5-15.0 [facility] Comment on above: Performed By: #### L [id number] ####Line Manager: ALONZO ALMODOVAR ([phone])[address] Hematocrit (Bld) [Volume fraction] 29.7 % Low 40.0-52.0 [facility] Comment on above: Performed By: #### L AB294 ####Line Manager: ALONZO ALMODOVAR ([phone])[address] Hemoglobin (Bld) [Mass/Vol] 9.8 g/dL Low 13.0-18.0 [facility] Comment on above: Performed By: #### L [id number] ####Line Manager: ALONZO ALMODOVAR ([phone])[address] MCH (RBC) [Entitic mass] 29.0 pg Normal 26.0-34.0 [facility] Comment on above: Performed By: #### L AB294 ####Line Manager: ALONZO ALMODOVAR ([phone])[address] MCHC 33.0 % Normal 30.5-36.0 [facility] Comment on above: Performed By: #### L AB294 ####Line Manager: ALONZO ALMODOVAR ([phone])[address] MCV (RBC) [Entitic vol] 87.9 fL Normal 77.0-99.0 [facility] Comment on above: Performed By: #### L AB294 ####Line Manager: ALONZO ALMODOVAR ([phone])[facility])[address] [place] [address] Platelet mean volume (Bld) [Entitic vol] 9.8 fL Normal 9.0-12.7 [facility] Comment on above: Performed By: #### L AB294 ####Line Manager: ALONZO ALMODOVAR ([phone])[facility])[address] [place] [address] Platelets (Bld) [#/Vol] 146 10*3/uL Normal 140-440 [facility] Comment on above: Performed By: #### L AB294 ####Line Manager: ALONZO ALMODOVAR ([phone])[facility])[address] [place] [address] RBC (Bld) [#/Vol] 3.38 10*6/uL Low 4.40-5.90 [facility] Comment on above: Performed By: #### L AB294 ####Line Manager: ALONZO ALMODOVAR ([phone])[facility])[address] [place] [address] WBC (Bld) [#/Vol] 8.1 10*3/uL Normal 3.6-10.7 [facility] Comment on above: Performed By: #### L AB294 ####Line Manager: ALONZO ALMODOVAR ([phone])[facility])[address] [place] [address] CBC panel Auto (Bld)on 06-01 Erythrocyte distribution width (RBC) [Ratio] 14.2 % 11.5 - 15.0 % [facility] Hematocrit (Bld) [Volume fraction] 29.7 % Low 40.0 - 52.0 % [facility] Hemoglobin (Bld) [Mass/Vol] 9.8 g/dL Low 13.0 - 18.0 g/dL [facility] Interpretation and review of laboratory results Abnormal [facility] MCH (RBC) [Entitic mass] 29.0 pg 26. 0 - 34.0 pg [facility] MCHC (RBC) [Mass/Vol] 33.0 % 30.5 - 36.0 % [facility] MCV (RBC) [Entitic vol] 87.9 fL 77.0 - 99.0 fL [facility] Platelet mean volume (Bld) [Entitic vol] 9.8 fL 9.0 - 12.7 fL [facility] Platelets (Bld) [#/Vol] 146 10*3/uL 140 - 440 10*3/uL [facility] RBC (Bld) [#/Vol] 3.38 10*6/uL Low 4.40 - 5.9 0 10*6/uL [facility] WBC (Bld) [#/Vol] 8.1 10*3/uL 3.6 - 10.7 10*3/uL [facility] Calcium.ionized [Moles/Vol]O rdered By: Augustin Pulido on 06-02-2023 Calcium.ionized (Bld) [Moles/Vol] 4.00 mg/dL Low 4.30 - 5.20 mg/dL [facility] Interpretation and review of laboratory results Abnormal [facility] PH, IONIZED CALCIUM 7.42 7.31 - 7.46 [facility] ECG 12-LEADon 06-02-2023 ECG 12-LEAD IMPRESSION: Sinus rhythm Left axis deviation Electronically Signed On 06-02-2023 11:23:[address] [facility] ECG 12-LEAD IMPRESSION: Sinus rhythm Left axis deviation Electronically Signed On 06-02-2023 11:20:32 [facility] 12-LEAD IMPRESSION: Sinus rhythm Borderline left axis deviation Electronically Signed On 06-02-2023 09:21:[address] [facility] ECG 12-LEAD IMPRESSION: Sinus rhythm ST elevation suggests acute pericarditis Electronically Signed On 06-02-2023 09:06:[address] [facility] Laboratory - Chemistry and C hemistry - challengeon 06-02-2023 Glucose [Mass/Vol] 125 mg/dL High 70 - 100 mg/dL [facility] Glucose [Mass/Vol] 110 mg/dL High 70 - 100 mg/dL [facility] Glucose [Mass/Vol] 111 mg/dL High 70 - 100 mg/dL [facility] Glucose [Mass/Vol] 99 mg/dL 70 - 100 mg/dL [facility] Glucose [Mass/Vol] 117 mg/dL High 70 - 100 mg/dL [facility] Magnesium [Mass/Vol] 2.2 mg/dL 1.6 - 2 .3 mg/dL [facility] Glucose [Mass/Vol] 115 mg/dL High 70 - 100 mg/dL [facility] Laboratory - Coagulationon 0 06-02-2023 aPTT Coag (PPP) [Time] 31.6 s High 20.0 - 30.5 s [facility] INR Coag (PPP) [Relative time] 1.2 {INR} High 0.9 - 1.1 [facility] Comment on above: Recommended Anticoag ulant Therapy: SEE BELOW ----- INR of 2.0 - 3.0 : - Prophylaxis of Venous Thrombosis (high-risk surgery) - Treatment of Venous Thrombosis - Treatment of Pulmonary Embolism (Includes tissue heart valves, Acute Myocardial Infarction to prevent systemic embolism, Valvular Heart Disease, and Atrial Fibrillation) ----- INR of 2.5 - 3.5 : - Mechanical Prosthetic Valves (high risk) - If oral anticoagulant therapy is used to prevent Myocardial Infarction PT Coag (Bld) [Time] 12.2 s High 9.0 - 12.0 s [facility] MAGNESIUMon 06-02-2023 Magnesium [Mass/Vol] 2.2 mg/dL Normal 1.6-2.3 [facility] Comment on above: Performed By: #### L AB15, [id number] #### Line Manager: ALONZO ALMODOVAR ([phone]) [facility] ([facility]) [address] Magnesium [Mass/Vol]on 06-01 Interpretation and review of laboratory results Normal [facility] No Panel Informationon 06-01 Interpretation and review of laboratory results Abnormal [facility] Performed by: [facility], [address] [address] CLIA ID: [id number] [facility] Sinus rhythm Left axis deviation Electronically Signed On 06-02-2023 11:23:32 EST by Chaparro Horner MD - 06/02/2023 IMPRESSION: Sinus rhythm Left axis deviation Electronically Signed On 06-02-2023 11:23:32 EST by Chaparro Dos [place] [facility] P [place] 73 degrees [facility] ME Interval 160 ms [facility] QRS [place] -34 degrees [facility] QRSD Interval 99 ms [facility] QT Interval 426 ms [facility] QTC Interval 444 ms [facility] T Wave [place] 14 degrees [facility] Sinus rhythm Left axis deviation Electronically Signed On 06-02-2023 11:20:32 EST by Chaparro Horner MD - 06/02/2023 IMPRESSION: Sinus rhythm Left axis deviation Electronically Signed On 06-02-2023 11:20:32 EST by [facility]arro [facility] P [place] 51 degrees [facility] [place] Interval 181 ms [facility] QRS [place] -29 degrees [facility] QRSD Interval 86 ms [facility] QT Inter[facility] 394 ms [facility] QTC Interval 458 ms [facility] T Wave [place] -1 degrees [facility] Sinus rhythm Borderline left axis deviation Electronically Signed On 06-02-2023 09:21:08 EST by Chaparro Horner MD - 06/02/2023 IMPRESSION: Sinus rhythm Borderline left axis deviation Electronically Signed On 06-02-2023 09:21:08 EST by Chaparro Dos Santos [facility] P [place] 49 degrees [facility] ME Interval 166 ms [facility] QRS [place] -13 degrees [facility] QRSD Interval 85 ms [facility] QT Interval 378 ms [facility] QTC Interval 443 ms [facility] T Wave [place] 10 degrees [facility] Sinus rhythm ST elevation suggests acute pericarditis Electronically Signed On 06-02-2023 09:06:19 EST by Chaparro Horner MD - 06/02/2023 IMPRESSION: Sinus rhythm ST elevation suggests acute pericarditis Electronically Signed On 06-02-2023 09:06:19 EST by Chaparro Jaintxgalina [facility] Interpretation and review of laboratory results Abnormal [facility] Performed by: [facility], [address] [place] [id number] CLIA ID: [id number] [facility] Interpretation and review of laboratory results Abnormal [facility] Performed by: [facility], [address] [place] [address], Formerly [facility] [address] CLIA ID: [id number] [facility] Interpretation and review of laboratory results Normal [facility] Performed by: [facility], [address] [place] [address], Formerly [facility] [address] CLIA ID: [id number] [facility] Interpretation and review of laboratory results Abnormal [facility] Performed by: [facility], [address] [place] [id number] CLIA ID: [id number] [facility] Interpretation and review of laboratory results Abnormal [facility] Interpretation and review of laboratory results Abnormal [facility] Performed by: [facility], [address] [place] [address], Formerly [facility] [address] CLIA ID: [id number] [facility] Radiology Study observation (narrative) [facility] Radiology Study observation (narrative[facility] Radiology Study observation (narrative) [facility] Radiology Study observation (narrative) [facility] Radiology Study observation (narrative) [facility] Radiology Study observation (narrative) [facility] No Panel InformationOrdered By: Chaparro Dos Santos on 06-02-2023 P [place] 22 degrees [facility] [employer] Work Phone: ME Interval 164 ms [facility] [employer] Work Phone: QRS [place] -32 degrees [facility] Work Phone: QRSD Interval 103 ms [facility] h Work Phone: QT Interval 430 ms [facility] [employer] Work Phone: QTC Interval 450 ms [facility] [employer] Work Phone: T Wave [place] 12 degrees [facility] [employer] Work Phone: [facility] [employer] Phone: PROTIME AND APTTon 4 aPTT Coag (Bld) [Time] 31.6 s High 20.0-30.5 [facility] Comment on above: Performed By: #### Sebastien LANTIGUA15, [id number] #### Line Manager: ALONZO ALMODOVAR ([phone]) [facility] [employer]) [address] [place] [address] INR Coag (PPP) [Relative time] 1.2 {INR} High 0.9-1.1 [facility] Comment on above: Result Comment: Kam mmended Anticoagulant Therapy: SEE BELOW ----- INR of 2.0 - 3.0 : - Prophylaxis of Venous Thrombosis (high-risk surgery) - Treatment of Venous Thrombosis - Treatment of Pulmonary Embolism (Includes tissue heart valves, Acute Myocardial Infarction to prevent systemic embolism, Valvular Heart Disease, and Atrial Fibrillation) ----- INR of 2.5 - 3.5 : - Mechanical Prosthetic Valves (high risk) - If oral anticoagulant therapy is used to prevent Myocardial Infarction Performed By: #### Sebastien LANTIGUA15, [id number] #### Line Manager: ALONZO ALMODOVAR ([phone]) [facility] ([facility]) [address] [place] [address] PT Coag (PPP) [Time] 12.2 s High 9.0-12.0 [facility] Comment on above: Performed By: #### Sebastien AB15, [id number] #### Line Manager: ALONZO ALMODOVAR ([phone]) [facility] ([facility]) [address] [place] [address] Progress Noteon 06-02-2023 Progress Note Attestation signed by Janice Fairchild MD at 06/02/2023 2:55 PM I performed a history and physical examination of the patient. I have reviewed the patient's chart including pertinent history, medications, labs, radiology, and other reports. I reviewed the resident/MATTY's note, agree with the documented findings and plan of care (with modifications noted if any), and discussed the management plan. Pt is doing well. Tolerated a full meal. No n/v. Some chest discomfort. No SOB. BG stable overnight, off insulin drip now. Only required minimal insulin yesterday. Adult diet Regular; Low Sodium (2 gm); 5 carb choices (75 gm/meal) Estimated Creatinine Clearance: 111.3 mL/min (by C-G formula based on SCr of 0.83 mg/dL). BP 118/77 Pulse 81 Temp 36.6 ?C (97.9 ?F) (Temporal) Resp 16 Ht 5' 9 (1.753 m) Wt 242 lb 4.6 oz (110 kg) SpO2 96% BMI 35.78 kg/m? awake, not in distress, RRR, chest incision intact, +chest tubes, abdomen soft, non-tender, no edema, no focal deficits. Dx: Prediabetes/stress hyperglycemia Severe MV-CAD s/p CABG Unstable angina Obesity Body mass index is 35.29 kg/m?. HTN HLP Plan: - will transition to subcutaneous insulin today with Humalog SS - continue appropriate blood glucose monitoring - carb controlled diet - discussed postop hyperglycemia management and goals of therapy - patient will unlikely require any pharmacotherapy on discharge for hyperglycemia - discussed need for lifestyle modification - will follow Total time 35 minutes which include review of records, counseling, management, and coordination of care as documented in note. Department of Internal Medicine Division of Endocrinology, Diabetes, & Metabolism Endocrinology Note Patient Name: Sylvester Lacy : 1960 AGE: 62 y.o. Room/Bed: T1-124/T1-124 A Admission Date: 05/31/2023 Visit Date: 06/02/2023 Reason for Endocrine Consult: Severe MV-CAD s/p CABG Provider/Team Requesting Consult: Darion Lopes APRN-ROTARY DRILL OPERATOR PCP: Crissy Engle, DO Outpt Chassis Engineer: No ASSESSMENT: Prediabetes (A1c 6.2%) Severe Multivessel CAD s/p CABG Hx of AL s/p stent to RCA and PDA in 2008 Hx of PE Hx of NSVT Hypertension Hyperlipidemia BMI 35.78 kg/m2 Hx of tobacco use PLAN: - On post-surgical insulin regimen. No longer requiring insulin drip. - Transition to LDSS - Continue BG monitoring - Recommend carb control diet - Recommend prediabetes counseling to reduce likelihood of progression to T2DM - Hypoglycemia management per protocol ICU goal <180 GMF goal <150 POCT BG ACHS ANTICIPATED ENDOCRINE HOME GOING RECOMMENDATIONS: Optimized for Discharge from Endocrine standpoint: No Home Going Endocrine Rx Recommendations-- Will likely not require pharmacotherapy on discharge Outpt Follow Up-- Follow up with PCP for prediabetes SUBJECTIVE/HPI: CHIEF COMPLAINT: No chief complaint on file. No acute events overnight. Did use insulin briefly for mildly elevated glucose around 120. No longer requiring insulin drip. Is agreeable to LDSS as needed. Tolerating a diet this morning. Is aware of the importance of limiting carbohydrate intake in the future. Endorses pain at the surgical site. No other complaints this morning. Glucose Date/Time Value Ref Range Status 06/02/2023 06:18 AM 111 (H) 70 - 100 mg/dL Final 06/02/2023 04:10 AM 99 70 - 100 mg/dL Final 06/02/2023 01:54 AM 117 (H) 70 - 100 mg/dL Final 06/02/2023 12:04 AM 115 (H) 70 - 100 mg/dL Final 06/01/2023 09:56 PM 116 (H) 70 - 100 mg/dL Final 06/01/2023 09:09 PM 118 (H) 70 - 100 mg/dL Final Review of Systems Constitutional: Negative for chills, diaphoresis, fatigue and fever. HENT: Negative for congestion and rhinorrhea. Respiratory: Negative for cough, chest tightness, shortness of breath and wheezing. Cardiovascular: Positive for chest pain (2/2 CABG). Negative for palpitations and leg swelling. Gastrointestinal: Negative for abdominal pain, constipation, diarrhea, nausea and vomiting. Endocrine: Negative for polydipsia, polyphagia and polyuria. Neurological: Negative for dizziness, weakness, light-headedness, numbness and headaches. Psychiatric/Behavior al: Negative for agitation, confusion and sleep disturbance. The patient is not nervous/anxious. ROS negative except for those mentioned in HPI. OBJECTIVE: Vitals: 06/02/23 0615 06/02/23 0630 06/02/23 0645 06/02/23 0700 BP: BP Location: Patient Position: Pulse: 83 80 82 81 Resp: Temp: TempSrc: SpO2: 93% 93% 93% 92% Weight: Height: Physical Exam Constitutional: General: He is not in acute distress. Appearance: Normal appearance. He is not ill-appearing, toxic-appearing or diaphoretic. HENT: Head: Normocephalic. Nose: No congestion. Mouth/ (more content not included)... Normal [facility] Progress Note Attestation signed by Susan Covington DO at 06/02/2023 5:39 PM I have personally performed a [id number] diagnostic evaluation on this patient on date of service 06/02/23. History, labs, imaging studies, and electronic medical record have been reviewed by me. This note documented by the []pump house technician [x]MATTY reflects my history, exam, and medical decision making. I have reviewed and agree with the care plan. Changes were made in the orders as necessary. ROS documentation was reviewed and negative unless otherwise stated in HPI. Assessment: -POD 1 CABGx5 for mvCAD -acute post op pulmonary management: expected course -acute post op blood loss anemia -HTN/HLD -hx NVST -EtOH use -obesity -hypocalcemia Plan: -successfully extubated yesterday, doing well on 3L NC, cont to wean. Encourage pulm toilet, IS/acapella. Optimize pain control -ASA, statin. Hold anti-HTNs as patient on low dose levo-->wean as able. Plan to dc art line and [place] once off levophed -nitroglycerin gtt transitioned to [facility], will need CCBx30 days for radial artery harvest -monitor chest tube output, CBC/coags closely. No signs of major bleeding currently -insulin gtt per protocol Total critical care time for this patient with life-threatening unstable organ failure, including direct patient contact, management of life support systems, review of data including imaging and labs, and discussions with other team members and physicians at least 35 minutes so far today, excluding procedures. Cardiothoracic Surgery/CCM Progress Note PATIENT NAME: Sylvester Lacy DATE: 06/02/23 HPI: 62 y.o. 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 Pmhx including RCA and PDA stents in 2008, HTN, Hx of NSVT, Hx of PE, former tobacco use and current ETOH use. He was see in OP setting 05/31/23 and noted to have unstable angina with palpitations and he was direct admitted for urgent CABG. Preoperative testing was completed and he consented to surgical revascularization. Of note patient lives alone at home. 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 Cardiac cath showed 90% D1, 90% D2, 80% mLAD, 90% ostial OM1, 80% mCirc, 90% mRCA Surgery: 05/31/23: CABGx5 (CAMPBELL to LAD, Free left radial to OM2, SVG to right pDA, SVG to Diag1, SVG to Diag2) left radial harvest R leg EVH and PAM with Dr. Huang Interval History: 06/01/23: POD #1 Pt sitting up in bed still on 1L NC oxygen, BP has been borderline low and the patient has been off and on Levophed currently at 0.01, other hemodynamics are stable. Review of Systems Constitutional: Negative for diaphoresis, fatigue and fever. Respiratory: Negative for cough, shortness of breath and wheezing. Cardiovascular: Negative for chest pain, palpitations and leg swelling. Gastrointestinal: Negative for abdominal distention, constipation and diarrhea. Skin: Negative for color change, pallor and rash. Objective: CT output cc/24hrs: 620 UO cc/24hrs:2.2L Last BM Date: 05/31/23 A-line: Arterial Line BP 1: 92/51 Invasive Hemodynamic Monitoring Blood Temperature: 36.7 ?C (98.1 ?F) PAP: 33/15 PAP (Mean): 22 mmHg CVP (mmHg): 8 mmHg CO (L/min): 6.12 L/min CI (L/min/m2): 2.76 L/min/m2 Vitals: BP: 97/54, MAP (mmHg): 69, BP Method: Arterial line Heart Rate: 75 Resp: 16 Temp: 36.7 ?C (98.1 ?F), Temp Source: Core BMI (Calculated): 35.28 Pacer Wires: Set to back up CXR: BMP: Recent Labs 05/31/23 1501 06/01/23 1245 06/02/23 0004 NA 137 139 136 K 4.0 4.3 4.5 CL 103 109* 107 CO2 28 23 22 BUN 12 14 17 CREATININE 0.75 0.79 0.83 CALCIUM 9.4 8.7 7.9* MG 2.0 2.9* 2.2 PHOS 3.2 3.2 -- CBC: Recent Labs 05/31/23 1501 06/01/23 1245 06/02/23 0004 WBC 5.3 5.6 8.1 HGB 13.4 10.4 8.9* 9.8* HCT 40.3 27.1* 29.7* PLT 242 136* 146 MCV 87.2 88.9 87.9 RDW 14.0 14.2 14.2 INR: Recent Labs 05/31/23 1512 06/01/23 1245 06/02/23 0004 INR 1.0 1.5* 1.2* Physical Exam Cardiovascular: Rate and Rhythm: Regular rhythm. Heart sounds: Normal heart sounds. No murmur heard. No friction rub. No S4 sounds. Arteriovenous access: Right arteriovenous access is present. Pulmonary: Effort: Pulmonary effort is normal. Skin: General: Skin is warm and dry. Capillary Refill: Capillary refill takes less than 2 seconds. Findings: Bruising and ecchymosis present. Comments: MSCI Intact RIJ [place] Right EVH Left radial artery harvest Neurological: Mental Status: He is alert. Psychiatric: Behavior: Behavior is cooperative. Assessment: MVCAD s/p CABGx5 05/31/23 Hx NSVT HLD HTN ETOH use Former Tobacco use Post operative Pulm Management: Normal Post-operative Course Post-operative Atrial Fib (more content not included)... Normal [facility] [employer] [facility] Vital signsOrdered By: Edenilson Dos Santos on 06-02-2023 Heart rate 66 /min bpm [facility] [employer] Work Phone: Vital signson 06-02-2023 Heart rate 65 /min bpm [facility] [employer] Heart rate 81 /min bpm [facility] [employer] Heart rate 82 /min bpm [facility] [employer] XR CHEST 1 VIEWon 06-02-2023 XR CHEST 1 VIEW [facility] 1960 [id number] Exam Date/Time: 06/02/2023 05:16 Procedure: XR CHEST 1 VIEW Ordering Provider: LOPES ANDREW Reason For Exam: Shortness of breath CHEST (Frontal View) History: Dyspnea Comparison: 06/01/2023 Findings: Frontal chest view shows bilateral basilar linear atelectasis and probably small pleural effusion. The lungs are mildly congested. The heart is mildly enlarged with median sternotomy noted. Tracheal and enteric tubes have been removed. Chest tubes are similar to last exam.. Tip of [place]-Koki catheter overlies the tip of the main pulmonary trunk. There is no sizable pneumothorax or other significant interval change. Report Dictated on Electronically Signed By: Calderon Salmeron MD Electronically Signed Date/Time: 06/02/2023 8:57 AM EST Normal [facility] XR Chest Single viewon 06-01 Patient Name: SYLVESTER LACY : 1960 Exam Date/Time: 06/02/2023 05:16 Procedure: XR CHEST 1 VIEW Ordering Provider: LOPES ANDREW Reason For Exam: Shortness of breath CHEST (Frontal View) History: Dyspnea Comparison: 06/01/2023 Findings: Frontal chest view shows bilateral basilar linear atelectasis and probably small pleural effusion. The lungs are mildly congested. The heart is mildly enlarged with median sternotomy noted. Tracheal and enteric tubes have been removed. Chest tubes are similar to last exam.. Tip of [place]-Koki catheter overlies the tip of the main pulmonary trunk. There is no sizable pneumothorax or other significant interval change. Report Dictated on Electronically Signed By: Calderon Salmeron MD Electronically Signed Date/Time: 06/02/2023 8:57 AM [facility] Calderon Salmeron MD - 06/02/2023 Patient Name: SYLVESTER LACY : 1960 Exam Date/Time: 06/02/2023 05:16 Procedure: XR CHEST 1 VIEW Ordering Provider: LOPES ANDREW Reason For Exam: Shortness of breath CHEST (Frontal View) History: Dyspnea Comparison: 06/01/2023 Findings: Frontal chest view shows bilateral basilar linear atelectasis and probably small pleural effusion. The lungs are mildly congested. The heart is mildly enlarged with median sternotomy noted. Tracheal and enteric tubes have been removed. Chest tubes are similar to last exam.. Tip of [place]-Koki catheter overlies the tip of the main pulmonary trunk. There is no sizable pneumothorax or other significant interval change. Report Dictated on Electronically Signed By: Calderon Salmeron MD Electronically Signed Date/Time: 06/02/2023 8:57 AM [facility] Radiology Study observation (narrative) [facility] XR Chest Single viewOrdered By: Calderon Salmeron on 06-02-2023 [facility] Work Phone: [phone] 06-01-2023 [id number] Railcar Switchman following case for Discharge Needs. Normal [facility] BASIC METABOLIC PANELon Anion gap [Moles/Vol] 7 mmol/L Normal 3-13 [facility] Comment on above: Performed By: #### L AB15, [id number] #### Line Manager: ALONZO ALMODOVAR ([phone]) [facility] ([facility]) [address] [place] [address] Calcium [Mass/Vol] 8.7 mg/dL Normal 8.4-10.4 [facility] Comment on above: Performed By: #### L AB15, [id number] #### Line Manager: ALONZO ALMODOVAR ([phone]) [facility]) [address] [place] [address] [place] Chloride [Moles/Vol] 109 mmol/L High 98-107 [facility] Comment on above: Performed By: #### L AB15, [id number] #### Line Manager: ALONZO ALMODOVAR ([phone]) [facility] [address] [place] [address] [place] CO2 [Moles/Vol] 23 mmol/L Normal 22-30 [facility] Comment on above: Performed By: #### L AB15, [id number] #### Line Manager: ALONZO ALMODOVAR ([phone]) [facility] [address] [place] [address] [place] Creatinine [Mass/Vol] 0.79 mg/dL Normal 0.66-1.25 [facility] Comment on above: Performed By: #### L AB15, [id number] #### Line Manager: ALONZO ALMODOVAR ([phone]) [facility] ([facility]) [address] [place] [address] GLOMERULAR FILTRATION RATE ML/MIN/1.73 SQ M.PREDICTED >90.0 Normal >60.0 [facility] Comment on above: Result Comment: Calc ulation based on the Chronic Kidney Disease Epidemiology Collaboration (CKD-EPI) equation refit without adjustment for race Performed By: #### L AB15, [id number] #### Line Manager: ALONZO ALMODOVAR ([phone]) [facility]) [address] [place] [address] Glucose [Mass/Vol] 118 mg/dL High 70-100 [facility] Comment on above: Performed By: #### L AB15, [id number] #### Line Manager: ALONZO ALMODOVAR ([phone]) [facility] ([facility]) [address] [place] [address] Potassium [Moles/Vol] 4.3 mmol/L Normal 3.5-5.1 [facility] Comment on above: Performed By: #### L AB15, [id number] #### Line Manager: ALONZO ALMODOVAR ([phone]) [facility] ([facility]) [address] [place] [address] Sodium [Moles/Vol] 139 mmol/L Normal 135-145 [facility] Comment on above: Performed By: #### L AB15, [id number] #### Line Manager: ALONZO ALMODOVAR ([phone]) [facility]) [address] [place] [address] Urea nitrogen [Mass/Vol] 14 mg/dL Normal 9-20 [facility] Comment on above: Performed By: #### L AB15, [id number] #### Line Manager: ALONZO ALMODOVAR ([phone]) [facility]) [address] [place] [address] BLOOD GAS ARTERIALon 024 Base excess Calc (Bld) [Moles/Vol] -1.3000 mmol/L Normal -3.0-3.0 [facility] Comment on above: Performed By: #### L AB76 ####Line Manager: ALONZO ALMODOVAR ([phone])[facility])[address] [place] [address] [place] CO2 [Moles/Vol] 25.0 mmol/L Normal 23.0-27.0 [facility] Comment on above: Performed By: #### L AB76 ####Line Manager: ALONZO ALMODOVAR ([phone])[facility] ([facility])[address] [place] [address] HCO3 (Bld) [Moles/Vol] 23.7 mmol/L Normal 21.0-25.0 [facility] Comment on above: Performed By: #### L AB76 ####Line Manager: ALONZO ALMODOVAR ([phone])[facility] ([facility])[address] [place] [address] Hemoglobin (Bld) [Mass/Vol] 10.4 g/dL Normal Screen Only [facility] Comment on above: Performed By: #### L AB76 ####Line Manager: ALONZO ALMODOVAR ([phone])[facility])[address] [place] [address] OXYGEN SATURATION (%) IN ARTERIAL BLOOD 98.7 % Normal 95.0-100.0 [facility] Comment on above: Performed By: #### L AB76 ####Line Manager: ALONZO ALMODOVAR ([phone])[facility] ([facility])[address] [place] [address] PCO2 ARTERIAL 41.0 mm Hg Normal >35.0-<45.0 [facility] Comment on above: Performed By: #### L AB76 ####Line Manager: ALONZO ALMODOVAR ([phone])[facility])[address] [place] [address] PH ARTERIAL 7.380 Normal 7.350-7.450 [facility] Comment on above: Performed By: #### L AB76 ####Line Manager: ALONZO ALMODOVAR ([phone])[facility])[address] [place] [address] PO2 ARTERIAL 216.3 mm Hg High 80.0-100.0 [facility] Comment on above: Performed By: #### L AB76 ####Line Manager: ALONZO ALMODOVAR ([phone])[facility] [place] [address] SOURCE OF OXYGEN Vent Normal [facility] Comment on above: Result Comment: 100% Performed By: #### L AB76 ####Line Manager: ALONZO ALMODOVAR ([phone])[facility])[address] [place] [address] Basic metabolic 1998 panelon 06-01-2023 Anion gap [Moles/Vol] 7 mmol/L 3 - 13 mmol/L [facility] Calcium [Mass/Vol] 8.7 mg/dL 8.4 - 10. 4 mg/dL [facility] Chloride [Moles/Vol] 109 mmol/L High 98 - 10 7 mmol/L [facility] CO2 [Moles/Vol] 23 mmol/L 22 - 30 mmol/L [facility] Creatinine [Mass/Vol] 0.79 mg/dL 0.66 - 1.25 mg/dL [facility] GFR/1.73 sq M.predicted MDRD (S/P/Bld) [Vol rate/Area] - PINF [facility] Comment on above: Calculation based on the Chronic Kidney Disease Epidemiology Collaboration (CKD-EPI) equation refit without adjustment for race Glucose [Mass/Vol] 118 mg/dL High 70 - 100 mg/dL [facility] Potassium [Moles/Vol] 4.3 mmol/L 3.5 - 5.1 mmol/L [facility] Sodium [Moles/Vol] 139 mmol/L 135 - 145 mmol/L [facility] Urea nitrogen [Mass/Vol] 14 mg/dL 9 - 20 mg/d L [facility] CALCIUM, IONIZEDon 4 CALCIUM IONIZED 4.80 mg/dL Normal 4.30-5.20 [facility] Comment on above: Performed By: #### L AB54 ####Line Manager: ALONZO ALMODOVAR ([phone])[facility] ([facility])[address] [place] [address] PH, IONIZED CALCIUM 7.37 Normal 7.31-7.46 [facility] Comment on above: Performed By: #### L AB54 ####Line Manager: ALONZO ALMODOVAR ([phone])[facility] [address] [address] CBC (HEMOGRAM)on 06-01-2023 Erythrocyte distribution width (RBC) [Ratio] 14.2 % Normal 11.5-15.0 [facility] Comment on above: Performed By: #### L [id number] ####Line Manager: ALONZO ALMODOVAR ([phone])[facility])[address] [place] [address] Hematocrit (Bld) [Volume fraction] 27.1 % Low 40.0-52.0 [facility] Comment on above: Performed By: #### L [id number] ####Line Manager: ALONZO ALMODOVAR ([phone])[address] Hemoglobin (Bld) [Mass/Vol] 8.9 g/dL Low 13.0-18.0 [facility] Comment on above: Performed By: #### L [id number] ####Line Manager: ALONZO ALMODOVAR ([phone])[facility])[address] [place] [address] MCH (RBC) [Entitic mass] 29.2 pg Normal 26.0-34.0 [facility] Comment on above: Performed By: #### L [id number] ####Line Manager: ALONZO ALMODOVAR ([phone])[facility])[address] [place] [address] MCHC 32.8 % Normal 30.5-36.0 [facility] Comment on above: Performed By: #### L [id number] ####Line Manager: ALONZO ALMODOVAR ([phone])[facility])[address] [place] [address] MCV (RBC) [Entitic vol] 88.9 fL Normal 77.0-99.0 [facility] Comment on above: Performed By: #### L [id number] ####Line Manager: ALONZO ALMODOVAR ([phone])[facility])[address] [place] [address] Platelet mean volume (Bld) [Entitic vol] 10.1 fL Normal 9.0-12.7 [facility] Comment on above: Result Comment: ROGER Denise COMMENTS: Patient is/was in surgery. CORONARY ARTERY BYPASS GRAFT, TRANSESOPHAGEAL ECHOCARDIOGRAM Performed By: #### L [id number] ####Line Manager: ALONZO ALMODOVAR ([phone])[facility])[address] [place] [address] Platelets (Bld) [#/Vol] 136 10*3/uL Low 140-440 [facility] Comment on above: Performed By: #### L [id number] ####Line Manager: ALONZO ALMODOVAR ([phone])[facility])[address] [place] [address] RBC (Bld) [#/Vol] 3.05 10*6/uL Low 4.40-5.90 [facility] Comment on above: Performed By: #### L [id number] ####Line Manager: ALONZO ALMODOVAR ([phone])[facility])[address] [place] [address] WBC (Bld) [#/Vol] 5.6 10*3/uL Normal 3.6-10.7 [facility] Comment on above: Performed By: #### L [id number] ####Line Manager: ALONZO ALMODOVAR ([phone])[facility])[address] [place] [address] CBC panel Auto (Bld)Ordered By: Iain Alcocer on 06-01-2023 Erythrocyte distribution width (RBC) [Ratio] 14.2 % 11.5 - 15.0 % [facility] Hematocrit (Bld) [Volume fraction] 27.1 % Low 40.0 - 52.0 % [facility] Hemoglobin (Bld) [Mass/Vol] 8.9 g/dL Low 13.0 - 18.0 g/dL [facility] Interpretation and review of laboratory results Abnormal [facility] MCH (RBC) [Entitic mass] 29.2 pg 26. 0 - 34.0 pg [facility] MCHC (RBC) [Mass/Vol] 32.8 % 30.5 - 36.0 % [facility] MCV (RBC) [Entitic vol] 88.9 fL 77.0 - 99.0 fL [facility] Platelet mean volume (Bld) [Entitic vol] 10.1 fL 9.0 - 12.7 fL [facility] Platelets (Bld) [#/Vol] 136 10*3/uL Low 140 - 440 10*3/uL [facility] RBC (Bld) [#/Vol] 3.05 10*6/uL Low 4.40 - 5.9 0 10*6/uL [facility] WBC (Bld) [#/Vol] 5.6 10*3/uL 3.6 - 10.7 10*3/uL [facility] Patient is/was in surgery. CORONARY ARTERY BYPASS GRAFT, TRANSESOPHAGEAL ECHOCARDIOGRAM [facility] CT CHEST WO IV CONTRASTon CT CHEST WO IV CONTRAST Patient Name: SYLVESTER SILVA : 1960 Exam Date/Time: 05/31/2023 16:53 Procedure: CT CHEST WO IV CONTRAST Ordering Provider: LOPES ANDREW Reason For Exam: assess aorta prior to open heart surgery CT CHEST WITHOUT CONTRAST: CLINICAL INDICATION: Open heart surgery. TECHNIQUE: Transaxial sequence from apices through the bases with 1 mm reconstruction interval. Coronal and sagittal reconstructions included. Dose reduction was employed with automated exposure control. COMPARISON: None. FINDINGS: Lungs/airways: Mild bibasilar atelectasis without evidence of pleural effusion, focal consolidation or pneumothorax. Pulmonary nodules: No discrete pulmonary nodules. Lower neck, lymph nodes, and mediastinum: The visualized thyroid gland is unremarkable. No mediastinal, hilar, or axillary lymphadenopathy based on size criteria. Trace hiatal hernia. Heart, pericardium, and thoracic vessels: The thoracic aorta is normal in caliber with mild atherosclerotic calcifications. Please note the aorta is approximately 2.3 cm posterior to the sternum at the level the aortic arch which is the closest proximity. The pulmonary artery is normal in size. The heart is normal in size without evidence of pericardial effusion. Severe coronary artery calcifications. (Please note the study is not tailored for coronary artery evaluation.) Upper abdomen: No abnormality in the visualized upper abdomen. Bones and soft tissues: The soft tissues are unremarkable. No suspicious osseous lesions. Mild multilevel discogenic degenerative changes. IMPRESSION: The aorta is approximately 2.3 cm posterior to the sternum at the level of the aortic arch which is the closest proximity. There are mild atherosclerotic calcifications of the aorta without aneurysmal dilatation. Additional findings as described. Report Dictated on Electronically Signed By: Mitch Pierson MD Electronically Signed Date/Time: 06/01/2023 9:26 AM EST assess aorta prior to open heart surgery [facility] CT Chest WO contraston 05-31 The aorta is approximately 2.3 cm posterior to the sternum at the level of the aortic arch which is the closest proximity. There are mild atherosclerotic calcifications of the aorta without aneurysmal dilatation. Additional findings as described. Report Dictated on Electronically Signed By: Mitch Pierson MD Electronically Signed Date/Time: 06/01/2023 9:26 AM EST [facility] [place] [facility] Patient Name: SYLVESTER LACY : 1960 Exam Date/Time: 05/31/2023 16:53 Procedure: CT CHEST WO IV CONTRAST Ordering Provider: LOPES ANDREW Reason For Exam: assess aorta prior to open heart surgery CT CHEST WITHOUT CONTRAST: CLINICAL INDICATION: Open heart surgery. TECHNIQUE: Transaxial sequence from apices through the bases with 1 mm reconstruction interval. Coronal and sagittal reconstructions included. Dose reduction was employed with automated exposure control. COMPARISON: None. FINDINGS: Lungs/airways: Mild bibasilar atelectasis without evidence of pleural effusion, focal consolidation or pneumothorax. Pulmonary nodules: No discrete pulmonary nodules. Lower neck, lymph nodes, and mediastinum: The visualized thyroid gland is unremarkable. No mediastinal, hilar, or axillary lymphadenopathy based on size criteria. Trace hiatal hernia. Heart, pericardium, and thoracic vessels: The thoracic aorta is normal in caliber with mild atherosclerotic calcifications. Please note the aorta is approximately 2.3 cm posterior to the sternum at the level the aortic arch which is the closest proximity. The pulmonary artery is normal in size. The heart is normal in size without evidence of pericardial effusion. Severe coronary artery calcifications. (Please note the study is not tailored for coronary artery evaluation.) Upper abdomen: No abnormality in the visualized upper abdomen. Bones and soft tissues: The soft tissues are unremarkable. No suspicious osseous lesions. Mild multilevel discogenic degenerative changes. [facility] Mitch Pierson MD - 06/01/2023 [facility] Name[facility] 1960 [id number] Exam Date/Time: 05/31/2023 16:53 Procedure: CT CHEST WO IV CONTRAST Ordering Provider: LOPES ANDREW Reason For Exam: assess aorta prior to open heart surgery CT CHEST WITHOUT CONTRAST: CLINICAL INDICATION: Open heart surgery. TECHNIQUE: Transaxial sequence from apices through the bases with 1 mm reconstruction interval. Coronal and sagittal reconstructions included. Dose reduction was employed with automated exposure control. COMPARISON: None. FINDINGS: Lungs/airways: Mild bibasilar atelectasis without evidence of pleural effusion, focal consolidation or pneumothorax. Pulmonary nodules: No discrete pulmonary nodules. Lower neck, lymph nodes, and mediastinum: The visualized thyroid gland is unremarkable. No mediastinal, hilar, or axillary lymphadenopathy based on size criteria. Trace hiatal hernia. Heart, pericardium, and thoracic vessels: The thoracic aorta is normal in caliber with mild atherosclerotic calcifications. Please note the aorta is approximately 2.3 cm posterior to the sternum at the level the aortic arch which is the closest proximity. The pulmonary artery is normal in size. The heart is normal in size without evidence of pericardial effusion. Severe coronary artery calcifications. (Please note the study is not tailored for coronary artery evaluation.) Upper abdomen: No abnormality in the visualized upper abdomen. Bones and soft tissues: The soft tissues are unremarkable. No suspicious osseous lesions. Mild multilevel discogenic degenerative changes. IMPRESSION: The aorta is approximately 2.3 cm posterior to the sternum at the level of the aortic arch which is the closest proximity. There are mild atherosclerotic calcifications of the aorta without aneurysmal dilatation. Additional findings as described. Report Dictated on Electronically Signed By: Mitch Pierson MD Electronically Signed Date/Time: 06/01/2023 9:[address] [facility] [address] Chest WO contrastOrdered By: Mitch Pierson on 06-01-2023 [facility] Work Phone: Calcium.ionized [Moles/Vol]o n 06-01-2023 Calcium.ionized (Bld) [Moles/Vol] 4.80 mg/dL 4.30 - 5.20 mg/dL [facility] Interpretation and review of laboratory results Normal [facility] PH, IONIZED CALCIUM 7.37 7.31 - 7.46 [facility] Consulton 06-01-2023 Consult Attestation signed by Janice Fairchild MD at 06/01/2023 6:36 PM I performed a history and physical examination of the patient. I have reviewed the patient's chart including pertinent history, medications, labs, radiology, and other reports. I reviewed the resident/MATTY's note, agree with the documented findings and plan of care (with modifications noted if any), and discussed the management plan. Pt is s/p urgent CABG for unstable angina and MV-CAD on 06/01/23. Pt now extubated. He is awake and conversant. Sister at bedside. Known prediabetes. Never been on meds for DM. M with DM. Goes to [place]. Diet is high in fat; does not like vegetables. On statin/BB/TEVIN at home. On nitroglycerin and heparin drips. BG up to 140 now. Pt to be started on insulin drip. Lab Results Component Value Date HGBA1C 6.2 (H) 05/31/2023 Lab Results Component Value Date GLUCOSE 118 (H) 06/01/2023 CALCIUM 8.7 06/01/2023 NA 139 06/01/2023 K 4.3 06/01/2023 CO2 23 06/01/2023 CL 109 (H) 06/01/2023 BUN 14 06/01/2023 CREATININE 0.79 06/01/2023 BP 104/69 (BP Location: Right arm, Patient Position: Lying) Pulse 96 Temp 37.8 ?C (100 ?F) (Core) Resp 20 Ht 5' 9 (1.753 m) Wt 239 lb (108 kg) SpO2 97% BMI 35.29 kg/m? awake, not in distress, RRR, chest incision dressed, good pulses, clear breath sounds, +chest tubes, abdomen soft, non-tender, no edema, no focal deficits. Dx: Prediabetes/stress hyperglycemia Severe MV-CAD s/p CABG Unstable angina Obesity Body mass index is 35.29 kg/m?. HTN HLP Plan: - will continue insulin infusion per protocol then transition to subcutaneous insulin likely pipe - continue blood glucose monitoring - discussed postop hyperglycemia management and goals of therapy - patient will unlikely require any pharmacotherapy on discharge for hyperglycemia - discussed need for lifestyle modification and weight management - will follow Based on above assessment and management, combination of acute and chronic problems, exacerbations and/or acuity, this visit would be considered to be of moderate complexity. Department of Internal Medicine Division of Endocrinology, Diabetes, & Metabolism Endocrinology Note Patient Name: Sylvester Lacy : 1960 AGE: 62 y.o. Room[facility]: [facility] A Admission Date: 05/31/2023 Visit Date: 06/01/2023 Reason for Endocrine Consult: Post Op Heart Surgery Provider/Team Requesting Consult: Darion Lopes APRN-ROTARY DRILL OPERATOR PCP: Crissy Engle DO Outpt Chassis Engineer: No ASSESSMENT: Severe Multivessel CAD s/p CABG Prediabetes (A1c 6.2%) Hx of AL s/p stent to RCA and PDA in 2008 Hx of PE Hx of NSVT Hypertension Hx of tobacco use PLAN: - On post-surgical insulin regimen with specified glucose parameters. Will monitor over the next 24 hours for need to continue insulin drip. - POCT q1 hr - When able to eat recommend carb control diet - Recommend prediabetes counseling to reduce likelihood of progression to T2DM - Hypoglycemia management per protocol ANTICIPATED ENDOCRINE HOME GOING RECOMMENDATIONS: Optimized for Discharge from Endocrine standpoint: No Home Going Endocrine Rx Recommendations-- TBD Outpt Follow Up-- TBD SUBJECTIVE/HPI: CHIEF COMPLAINT: CAD with symptoms of Unstable Angina Terry Bambi is a 62 yo male with a past medical history of severe triple-vessel disease noted on heart cath (05/19/23), hx of inferior AL s/p stent to RCA and PDA (2008), hx of PE, hx of NSVT, hypertension, former smoker, hx of alcohol use [facility] [place] on 05/[facility]/23 from cardiothoracic surgeon's office for urgent CABG. A CABG x5 was performed on 05/31. Now in CCU. Remains intubated and sedated. VS have been stable. Lab work significant for hgb 8.9 and hematocrit 27.1. Remains on nitroglycerin gtt, propofol infusion, NS 0.45% infusion, and insulin drip. Sister at bedside states he has never had a history of diabetes, thyroid disease, adrenal abnormalities. Denies chronic steroid use. Biological mother with diabetes mellitis. Glucose Date/Time Value Ref Range Status 06/01/2023 01:29 PM 102 (H) 70 - 100 mg/dL Final Review of Systems Reason unable to perform ROS: Patient intubated and sedated. ROS negative except for those mentioned in HPI. OBJECTIVE: Vitals: 06/01/23 0545 06/01/23 0600 06/01/23 0700 06/01/23 1329 BP: 152/90 156/88 Pulse: 68 69 73 89 Resp: 18 (!) 11 SpO2: 93% 95% 94% Weight: Height: Physical Exam Constitutional: General: He is not in acute distress. Appearance: He is diaphoretic. He is not ill-appearing or toxic-appearing. Comments: Intubated and sedated HENT: Head: Normocephalic. Mouth/Throat: Mouth: Mucous membranes are moist. Eyes: Extraocular Movements: Extraocula (more content not included)... Normal [facility] FIBRINOGENon 06-01-2023 FIBRINOGEN 160 mg/dL Low 200-400 [facility] Comment on above: Performed By: #### L [id number] ####Line Manager: ALONZO ALMODOVAR ([phone])[facility] ([facility])[address] [place] [address] Fibrinogen Coag (PPP) [Mass/ Vol]Ordered By: Karyn Weldon on 06-01-2023 Interpretation and review of laboratory results Abnormal [facility] Laboratory - Chemistry and C hemistry - challengeon 06-01-2023 Glucose [Mass/Vol] 116 mg/dL High 70 - 100 mg/dL [facility] Glucose [Mass/Vol] 118 mg/dL High 70 - 100 mg/dL [facility] Glucose [Mass/Vol] 105 mg/dL High 70 - 100 mg/dL [facility] Glucose [Mass/Vol] 106 mg/dL High 70 - 100 mg/dL [facility] Glucose [Mass/Vol] 112 mg/dL High 70 - 100 mg/dL [facility] Glucose [Mass/Vol] 121 mg/dL High 70 - 100 mg/dL [facility] Glucose [Mass/Vol] 140 mg/dL High 70 - 100 mg/dL [facility] Glucose [Mass/Vol] 100 mg/dL 70 - 100 mg/dL [facility] Magnesium [Mass/Vol] 2.9 mg/dL High 1.6 - 2 .3 mg/dL [facility] Glucose [Mass/Vol] 102 mg/dL High 70 - 100 mg/dL [facility] Laboratory - Chemistry and C hemistry - challengeOrdered By: Pineda Sanders on 06-01-2023 Base excess Calc (Bld) [Moles/Vol] -1.3000 mmol/L -3.0 - 3.0 mmol/L [facility] CO2 (Bld) [Partial pressure] 41.0 mm[Hg] - PINF [facility] CO2 [Moles/Vol] 25.0 mmol/L 23.0 - 27.0 mmol/L [facility] HCO3 (Bld) [Moles/Vol] 23.7 mmol/L 21.0 - 25.0 mmol/L [facility] Oxygen (Bld) [Partial pressure] 216.3 mm[Hg] High [facility] pH (Bld) 7.380 [pH] 7.350 - 7.450 [facility] Laboratory - CoagulationOrde red By: Karyn Weldon on 06-01-2023 Fibrinogen Coag (PPP) [Mass/Vol] 160 mg/dL Low 200 - 400 mg/dL [facility] Laboratory - Coagulationon 0 06-01-2023 aPTT Coag (PPP) [Time] 25.9 s 20.0 - 30.5 s [facility] INR Coag (PPP) [Relative time] 1.5 {INR} High 0.9 - 1.1 [facility] Comment on above: Recommended Anticoag ulant Therapy: SEE BELOW ----- INR of 2.0 - 3.0 : - Prophylaxis of Venous Thrombosis (high-risk surgery) - Treatment of Venous Thrombosis - Treatment of Pulmonary Embolism (Includes tissue heart valves, Acute Myocardial Infarction to prevent systemic embolism, Valvular Heart Disease, and Atrial Fibrillation) ----- INR of 2.5 - 3.5 : - Mechanical Prosthetic Valves (high risk) - If oral anticoagulant therapy is used to prevent Myocardial Infarction PT Coag (Bld) [Time] 15.1 s High 9.0 - 12.0 s [facility] Laboratory - Hematology and Cell countsOrdered By: Pineda Sanders on 06-01-2023 Hemoglobin (Bld) [Mass/Vol] 10.4 g/dL Screen Only [facility] MAGNESIUMon 06-01-2023 Magnesium [Mass/Vol] 2.9 mg/dL High 1.6-2.3 [facility] Comment on above: Performed By: #### L [id number], [id number] #### Line Manager: ALONZO ALMODOVAR ([phone]) [facility] ([facility]) [address] [place] [address] No Panel Informationon 05-31 Interpretation and review of laboratory results Abnormal [facility] th Performed by: [facility], [address] [place] [address] CLIA ID: [id number] [facility] Interpretation and review of laboratory results Abnormal [facility] th Performed by: [facility], [address] [place] [address] CLIA ID: [id number] [facility] Interpretation and review of laboratory results Abnormal [facility] th Performed by: [facility], [address] [place] [address] CLIA ID: [id number] [facility] Interpretation and review of laboratory results Abnormal [facility] th Performed by: [facility], [address] [place] [address] CLIA ID: [id number] [facility] Interpretation and review of laboratory results Abnormal [facility] Performed by: [facility], [address] [place] [address] CLIA ID: [id number] [facility] Interpretation and review of laboratory results Abnormal [facility] Performed by: [facility], [address] [place] [address] CLIA ID: [id number] [facility] Interpretation and review of laboratory results Abnormal [facility] Performed by: [facility], [address] [place] [address] CLIA ID: [id number] [facility] Interpretation and review of laboratory results Normal [facility] Performed by: [facility], [address] [place] [address] CLIA ID: [id number] [facility] Interpretation and review of laboratory results Abnormal [facility] Interpretation and review of laboratory results Abnormal [facility] Interpretation and review of laboratory results Abnormal [facility] Performed by: [facility], [address] [place] [address] CLIA ID: [id number] [facility] Radiology Study observation (narrative) [facility] (narrative) [facility] Rad[facility] Study observation (narrative) [facility] Rad[facility] Study observation (narrative) [facility] Radiology Study observation (narrative[facility] Radiology Study observation (narrative) [facility] Radiology Study observation (narrative) [facility] Radiology Study observation (narrative) [facility] Radiology Study observation (narrative) [facility] No Panel InformationOrdered By: Pineda Sanders on 06-01-2023 Interpretation and review of laboratory results Abnormal [facility] Source Of Oxygen [facility] Comment on above: 100% [facility] PHOSPHORUSon 06-01-2023 Phosphate [Mass/Vol] 3.2 mg/dL Normal 2.5-4.5 [facility] Comment on above: Performed By: #### L [id number], [id number] #### Line Manager: ALONZO ALMODOVAR ([phone]) [facility] ([facility]) [address] [place] [address] PROTIME AND APTTon aPTT Coag (Bld) [Time] 25.9 s Normal 20.0-30.5 [facility] Comment on above: Performed By: #### Sebastien [id number], [id number] ####Line Manager: ALONZO ALMODOVAR ([phone])[facility] ([facility])[address] [place] [address] INR Coag (PPP) [Relative time] 1.5 {INR} High 0.9-1.1 [facility] Comment on above: Result Comment: Kam mmended Anticoagulant Therapy: SEE BELOW ----- INR of 2.0 - 3.0 : - Prophylaxis of Venous Thrombosis (high-risk surgery) - Treatment of Venous Thrombosis - Treatment of Pulmonary Embolism (Includes tissue heart valves, Acute Myocardial Infarction to prevent systemic embolism, Valvular Heart Disease, and Atrial Fibrillation) ----- INR of 2.5 - 3.5 : - Mechanical Prosthetic Valves (high risk) - If oral anticoagulant therapy is used to prevent Myocardial Infarction Performed By: #### Sebastien [id number], [id number] ####Line Manager: ALONZO ALMODOVAR ([phone])[facility] ([facility])[address] [place] [address] PT Coag (PPP) [Time] 15.1 s High 9.0-12.0 [facility] Comment on above: Performed By: #### Sebastien [id number], [id number] ####Line Manager: ALONZO ALMODOVAR ([phone])[facility] ([facility])[address] [place] [address] Phosphate [Moles/Vol]on Interpretation and review of laboratory results Normal [facility] Phosphate [Mass/Vol] 3.2 mg/dL 2.5 - 4 .5 mg/dL [facility] Progress Noteon 06-01-2023 Progress Note 06/01/23 1557 Patient Parameters Heart Rate 91 SpO2 96 % Settings Vent Mode SPONT Spontaneous Type TC FiO2 (%) 50 % PEEP/CPAP (cm H2O) 8 cm H20 Sensitivity 3 Expiratory Sensitivity (%) 25 % % Support 100 % Readings PIP Observed (cm H2O) 10 cm H2O MAP (cm H2O) 8.9 Resp Rate Observed 16 Vt (observed, mL) 392 mL Minute Ventilation (L/min) 5.82 L/min I:E Ratio 1:3.2 Plateau Pressure (cm H2O) 0 cm H2O Dynamic Compliance (L/cm H2O) 200 L/cm H2O Static Compliance (L/cm H2O) 0 Airway Resistance 2.2 Total PEEP (cm H2O) 0 cm H2O Alarms High RR Alarm 30 breaths per minute Insp Pressure High (cm H2O) 40 cm H2O MV High (L/min) 18 L/min MV Low (L/min) 3 L/min Vt High (jackie) (mL) 1000 mL Vt Low (jackie) (mL) 200 mL Vt High (spont) (mL) 1000 mL Vt Low (spont) (mL) 200 mL High VTi 1170 Apnea Interval (sec) 20 seconds Spontaneous Breathing Trial Weaning Start Time 1528 Weaning Tidal Volume 338 mL Weaning Respiratory Rate 17 Spontaneous Minute Volume (MV) 9.46 Negative Inspiratory Force (NIF) -22 Total RSBI 50 Weaning Tolerance Good Weaning Stop Time 1557 Weaning Duration (min) 30 Spontaneous Breathing Trial (SBT) Outcome SBT Passed Normal [facility] Progress Note Attestation signed by Susan Covington DO at 06/01/2023 4:05 PM I have personally performed a [id number] diagnostic evaluation on this patient on date of service 06/01/23. History, labs, imaging studies, and electronic medical record have been reviewed by me. This note documented by the []pump house technician [x]MATTY reflects my history, exam, and medical decision making. I have reviewed and agree with the care plan. Changes were made in the orders as necessary. ROS documentation was reviewed and negative unless otherwise stated in HPI. Assessment: -POD 0 CABGx5 for mvCAD -acute post op pulmonary management: expected course -acute post op blood loss anemia/consumptive coagulopathy -HTN/HLD -hx NVST -EtOH use -obesity Plan: -cont mech vent, wean as able. Already received Sugammadex. Currently agitated-->start Precedex. SBT once more calm. -cont nitroglycerin gtt for radial artery harvest (needs CCB x30 days) -monitor chest tube output, CBC/coags closely. No signs of major bleeding currently -insulin gtt per protocol Total critical care time for this patient with life-threatening unstable organ failure, including direct patient contact, management of life support systems, review of data including imaging and labs, and discussions with other team members and physicians at least 35 minutes so far today, excluding procedures. [facility]: Critical Care Consultation Note Date: 06/01/23 PATIENT NAME: Sylvester Lacy : 1960 (62 y.o.) Reason for Consult: Critical Care & Vent Management HPI: 62 y.o. 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 Pmhx including RCA and PDA stents in 2008, HTN, Hx of NSVT, Hx of PE, former tobacco use and current ETOH use. He was see in OP setting 05/31/23 and noted to have unstable angina with palpitations and he was direct admitted for urgent CABG. Preoperative testing was completed and he consented to surgical revascularization. Of note patient lives alone at home. 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 Surgery: 05/31/23: CABGx5 (CAMPBELL to LAD, Free left radial to OM2, SVG to right pDA, SVG to Diag1, SVG to Diag2) left radial harvest R leg EVH and PAM with Dr. Huang Interval History: 06/01/23: POD #0: Patient arrived to the unit, intubated and sedated. Surgical hand off completed below. Surgery Hand Off: Arrival Time in CTVICU: 1:20 Complications/Pertin ent Events: none noted Last Paralytic: 1157 Gtts OR report Nitroglycerin: 5 Amicar: 29 Current gtts upon arrival Nitroglycerin: 5 Propofol: 29mcg/kg/min Amicar: 29 Devices: Epicardial wires: yes [x] no [] V wires Blood Transfusions Intra Op: yes [] no [x] CellSaver: 600cc Vital Signs including Cardiac Numbers (if indicated) at Conclusion of Hand-off OR CTVICU CO 4.6 8.4 CI 2.1 3.78 CVP 12 12 SVR 1063 676 PAP 23/01 37/17 Additional Interventions/Misc during Handoff None noted Review of Systems Unable to perform ROS: Intubated Allergies: Patient has no known allergies. Past Medical History: has a past medical history of Atherosclerosis of coronary artery, Hay fever, Hemorrhoids, History of alcohol abuse, History of inferior wall myocardial infarction, History of pulmonary embolism, Hyperlipidemia, Hypertension, Mucous cyst of digit of hand, and NSVT (nonsustained ventricular tachycardia) ([facility]). Past Surgical History: has a past surgical history that includes Coronary stent placement (2008). Social History: reports that he quit smoking about 9 years ago. His smoking use included cigarettes. He has a 45 pack-year smoking history. He has never used smokeless tobacco. He reports current alcohol use of about 12.0 standard drinks of alcohol per week. He reports that he does not use drugs. Family History: family history includes Diabetes in his mother. Medications: Prior to Admission medications Medication Sig Start Date End Date Taking? Authorizing Provider aspirin 81 MG EC tablet Take 81 mg by mouth daily. Historical Provider, carvedilol (Coreg) 12.5 MG tablet Take 6.25 mg by mouth in the morning and 6.25 mg in the evening. Take with meals. Historical Provider, cholecalciferol 25 MCG (1000 UT) capsule Take 25 mcg by mouth daily. Historical Provider, ibuprofen 800 MG tablet Take 800 mg by mouth 3 times daily as needed for mild pain (1-3). Historical Provider, isosorbide mononitrate ER (Imdur) 60 MG 24 hr tablet Take 60 mg by mouth daily. Do not crush or chew. Historical Provider, Krill Oil 500 MG capsule Take 1 capsule by mouth daily. Historical Provider, lisinopril 5 MG tablet Take 2.5 mg by mouth daily. Historical Provider, Multiple Vitamin (multiv (more content not included)... Normal VersionEye [facility] US Heart Transesophagealon 0 06-01-2023 Left Ventricle: Left ventricle size is normal. Normal wall thickness. Normal left ventricular systolic function. The EF by visual approximation is 60%. Normal wall motion. Right Ventricle: Right ventricle size is normal. Normal systolic function. Left Atrium: No left atrial appendage thrombus noted. No significant valvular abnormalities. Left Ventricle Left ventricle size is normal. Normal wall thickness. Normal left ventricular systolic function. The EF by visual approximation is 60%. Normal wall motion. Right Ventricle Right ventricle size is normal. Normal systolic function. Left Atrium Left atrium size is normal. No left atrial appendage thrombus noted. Right Atrium Right atrium size is normal. IVC/SVC IVC diameter is normal and decreases greater than 50% during inspiration; therefore the estimated right atrial pressure is normal (~3 mmHg). Mitral Valve Valve structure is normal. Trace regurgitation. No stenosis noted. Tricuspid Valve Valve structure is normal. Mild (1+) regurgitation. Aortic Valve Trileaflet. No cusp thickening. No cusp calcification. No regurgitation. No stenosis. Pulmonic Valve Valve structure is normal. Trace regurgitation. Ascending Aorta Normal sized annulus, sinuses of Valsalva,upper normal ascending aorta (3.6 cm), aortic arch and descending aorta. Pericardium No pericardial effusion. Septum No interatrial shunt visualized on color Doppler. Pulmonary Artery Normal pulmonary arteries. Study Details Image quality: excellent. PAM probe number: 5. PAM probe was inserted by the school cook with no difficulty. No complications. PAM probe was removed. No contrast was given. See anesthesia notes for medications given. Echo Additional Conclusions No significant valvular abnormalities. CV CPACS HEMO US Heart TransesophagealOrde red By: Juan Luis Guerrero on 06-01-2023 [employer] Work Phone: XR CHEST 1 VIEWon 06-01-2023 XR CHEST 1 VIEW Patient Name: SYLVESTER LACY : 1960 Exam Date/Time: 06/01/2023 14:35 Procedure: XR CHEST 1 VIEW Ordering Provider: LOPES ANDREW Reason For Exam: Post op open heart surgery EXAMINATION: CHEST RADIOGRAPH (SINGLE VIEW AP OR PA) Clinical History: Post op open heart surgery Comparison: Chest CT 05/31/2023 RESULT: See impression IMPRESSION: Lines, tubes, and devices: Interval placement of endotracheal tube terminating 2 cm by the pavel. Interval placement of NG/OG tube which extends below the diaphragm and below the field of view. Interval placement of right IJ approach pulmonary artery catheter with tip in the pulmonary outflow tract. Interval placement of bilateral chest tubes terminating near the apex on the right and lung base on the left. A mediastinal drain is not visualized though may be obscured by multiple overlying lines. Retained epicardial pacing wires. Lungs and pleura: No consolidation. No sizable pleural effusion or pneumothorax. Cardiomediastinal silhouette:Prominent cardiac silhouette though may be exaggerated by technique. Postoperative changes of median sternotomy for CABG. Other: Degenerative changes of the spine and acromioclavicular joints. Report Dictated on Electronically Signed By: Marcelino Anglin MD Electronically Signed Date/Time: 06/01/2023 2:[address] [facility] XR Chest Single viewon 05-31 Lines, tubes, and devices: Interval placement of endotracheal tube terminating 2 cm by the pavel. Interval placement of NG/OG tube which extends below the diaphragm and below the field of view. Interval placement of right IJ approach pulmonary artery catheter with tip in the pulmonary outflow tract. Interval placement of bilateral chest tubes terminating near the apex on the right and lung base on the left. A mediastinal drain is not visualized though may be obscured by multiple overlying lines. Retained epicardial pacing wires. Lungs and pleura: No consolidation. No sizable pleural effusion or pneumothorax. Cardiomediastinal silhouette:Prominent cardiac silhouette though may be exaggerated by technique. Postoperative changes of median sternotomy for CABG. Other: Degenerative changes of the spine and acromioclavicular joints. Report Dictated on Electronically Signed By: Marcelino Anglin MD Electronically Signed Date/Time: 06/01/2023 2:40 PM [employer] Patient Name: SYLVESTER LACY : 1960 Exam Date/Time: 06/01/2023 14:35 Procedure: XR CHEST 1 VIEW Ordering Provider: LOPES ANDREW Reason For Exam: Post op open heart surgery EXAMINATION: CHEST RADIOGRAPH (SINGLE VIEW AP OR PA) Clinical History: Post op open heart surgery Comparison: Chest CT 05/31/2023 RESULT: See impression [facility] Marcelino Anglin MD - 06/01/2023 [facility] Name[facility] 1960 [id number] Exam Date/Time: 06/01/2023 14:35 Procedure: XR CHEST 1 VIEW Ordering Provider: LOPES ANDREW Reason For Exam: Post op open heart surgery EXAMINATION: CHEST RADIOGRAPH (SINGLE VIEW AP OR PA) Clinical History: Post op open heart surgery Comparison: Chest CT 05/31/2023 RESULT: See impression IMPRESSION: Lines, tubes, and devices: Interval placement of endotracheal tube terminating 2 cm by the pavel. Interval placement of NG/OG tube which extends below the diaphragm and below the field of view. Interval placement of right IJ approach pulmonary artery catheter with tip in the pulmonary outflow tract. Interval placement of bilateral chest tubes terminating near the apex on the right and lung base on the left. A mediastinal drain is not visualized though may be obscured by multiple overlying lines. Retained epicardial pacing wires. Lungs and pleura: No consolidation. No sizable pleural effusion or pneumothorax. Cardiomediastinal silhouette:Prominent cardiac silhouette though may be exaggerated by technique. Postoperative changes of median sternotomy for CABG. Other: Degenerative changes of the spine and acromioclavicular joints. Report Dictated on Electronically Signed By: Marcelino Anglin MD Electronically Signed Date/Time: 06/01/2023 2:40 PM EST [facility] Radiology Study observation (narrative) [facility] XR Chest Single viewOrdered By: Marcelino Anglin on 06-01-2023 [facility] [employer] Work Phone: ABO and Rh group Confirm Nom (Bld)on 05-31-2023 ABO group Nom (Bld) A [facility] D Ag Ql (RBC) Positive [facility] APTTon 05-31-2023 aPTT Coag (Bld) [Time] 34.2 s High 20.0-30.5 [facility] Comment on above: Result Comment: ROGER Denise COMMENTS: NOTE: The therapeutic time for Heparin anticoagulation, based on Xa activity inhibition, is an APTT of 46-80 seconds. Performed By: #### L [id number] #### Line Manager: ALONZO ALMODOVAR ([phone]) [facility]) [address] [place] [address] BLOOD TYPE AND SCREEN GELon 05-31-2023 ABO GROUPING A Normal [facility] Comment on above: Performed By: #### L [id number] ####Line Manager: ALONZO ALMODOVAR ([phone])[facility] ([facility])[address] [place] [address] RH TYPE IN BLOOD Positive Normal [facility] Comment on above: Performed By: #### L [id number] ####Line Manager: ALONZO ALMODOVAR ([phone])[facility] ([facility])[address] [place] [address] Blood type and Crossmatch pa marvin (Bld)on 05-31-2023 ABO group Nom (Bld) A [facility] Blood group antibody screen GEL Ql Negative [facility] D Ag Ql (RBC) Positive [facility] h [facility] CALCIUM, IONIZEDon 4 CALCIUM IONIZED 4.40 mg/dL Normal 4.30-5.20 [facility] Comment on above: Performed By: #### L AB54 ####Line Manager: ALONZO ALMODOVAR ([phone])[facility] ([facility])[address] [place] [address] PH, IONIZED CALCIUM 7.39 Normal 7.31-7.46 [facility] Comment on above: Performed By: #### L AB54 ####Line Manager: ALONZO ALMODOVAR ([phone])[facility] ([facility])[address] [place] [address] CBC W Auto Differential pane l (Bld)on 05-31-2023 Basophils (Bld) [#/Vol] 0.0 10*3/uL 0.0 - 0.2 10*3/uL [facility] Basophils/100 WBC (Bld) 0.6 % 0.0 - 2.0 % [facility] Eosinophils (Bld) [#/Vol] 0.1 10*3/uL 0. 0 - 0.5 10*3/uL [facility] Eosinophils/100 WBC (Bld) 2.1 % 0.0 - 6.0 % [facility] Erythrocyte distribution width (RBC) [Ratio] 14.0 % 11.5 - 15.0 % [facility] Hematocrit (Bld) [Volume fraction] 40.3 % 40.0 - 52.0 % [facility] Hemoglobin (Bld) [Mass/Vol] 13.4 g/dL 13.0 - 18.0 g/dL [facility] Immature granulocytes (Bld) [#/Vol] 0.0 10*3/uL NINF - 0.1 10*3/uL [facility] Immature granulocytes/100 WBC (Bld) 0.2 % 0.0 - 2.0 % [facility] Interpretation and review of laboratory results Normal [facility] th Lymphocytes (Bld) [#/Vol] 1.8 10*3/uL 1. 0 - 4.3 10*3/uL [facility] Lymphocytes/100 WBC (Bld) 33.9 % 15 .0 - 45.0 % [facility] MCH (RBC) [Entitic mass] 29.0 pg 26. 0 - 34.0 pg [facility] MCHC (RBC) [Mass/Vol] 33.3 % 30.5 - 36.0 % [facility] MCV (RBC) [Entitic vol] 87.2 fL 77.0 - 99.0 fL [facility] Monocytes (Bld) [#/Vol] 0.6 10*3/uL 0.0 - 0.9 10*3/uL [facility] Monocytes/100 WBC (Bld) 11.6 % 5.0 - 13.0 % [facility] Neutrophils (Bld) [#/Vol] 2.8 10*3/uL 1. 8 - 7.5 10*3/uL [facility] Neutrophils/100 WBC (Bld) 51.6 % 38 .0 - 82.0 % [facility] Nucleated RBC/100 WBC (Bld) [Ratio] 0.0 % [facility] Platelet mean volume (Bld) [Entitic vol] 9.6 fL 9.0 - 12.7 fL [facility] Platelets (Bld) [#/Vol] 242 10*3/uL 140 - 440 10*3/uL [facility] RBC (Bld) [#/Vol] 4.62 10*6/uL 4.40 - 5.9 0 10*6/uL [facility] WBC (Bld) [#/Vol] 5.3 10*3/uL 3.6 - 10.7 10*3/uL [facility] CBC WITH AUTO DIFFERENTIALon 05-31-2023 Basophils (Bld) [#/Vol] 0.0 10*3/uL Normal 0.0-0.2 [facility] Comment on above: Performed By: #### L [id number] ####Line Manager: ALONZO ALMODOVAR ([phone])[facility])[address] [place] [address] Basophils/100 WBC (Bld) 0.6 % Normal 0.0-2.0 [facility] Comment on above: Performed By: #### L [id number] ####Line Manager: ALONZO ALMODOVAR ([phone])[facility])[address] [place] [address] Eosinophils (Bld) [#/Vol] 0.1 10*3/uL Normal 0.0-0.5 [facility] Comment on above: Performed By: #### L [id number] ####Line Manager: ALONZO ALMODOVAR ([phone])[facility])[address] [place] [address] Eosinophils/100 WBC (Bld) 2.1 % Normal 0.0-6.0 [facility] Comment on above: Performed By: #### L [id number] ####Line Manager: ALONZO ALMODOVAR ([phone])[facility])[address] [place] [address] Erythrocyte distribution width (RBC) [Ratio] 14.0 % Normal 11.5-15.0 [facility] Comment on above: Performed By: #### L [id number] ####Line Manager: ALONZO ALMODOVAR ([phone])[facility])[address] [place] [address] Hematocrit (Bld) [Volume fraction] 40.3 % Normal 40.0-52.0 [facility] Comment on above: Performed By: #### L [id number] ####Line Manager: ALONZO ALMODOVAR ([phone])[facility])[address] [place] [address] Hemoglobin (Bld) [Mass/Vol] 13.4 g/dL Normal 13.0-18.0 [facility] Comment on above: Performed By: #### L [id number] ####Line Manager: ALONZO ALMODOVAR ([phone])[facility])[address] [place] [address] IMMATURE GRANS % 0.2 % Normal 0.0-2.0 [facility] Comment on above: Performed By: #### L [id number] ####Line Manager: ALONZO ALMODOVAR ([phone])[facility])[address] [place] [address] IMMATURE GRANS ABSOLUTE 0.0 10*3/uL Normal <0.1 [facility] Comment on above: Performed By: #### L [id number] ####Line Manager: ALONZO ALMODOVAR ([phone])[facility])[address] [place] [address] Lymphocytes (Bld) [#/Vol] 1.8 10*3/uL Normal 1.0-4.3 [facility] Comment on above: Performed By: #### L [id number] ####Line Manager: ALONZO ALMODOVAR ([phone])[facility])[address] [place] [address] Lymphocytes/100 WBC (Bld) 33.9 % Normal 15.0-45.0 [facility] Comment on above: Performed By: #### L [id number] ####Line Manager: ALONZO ALMODOVAR ([phone])[facility])[address] [place] [address] MCH (RBC) [Entitic mass] 29.0 pg Normal 26.0-34.0 [facility] Comment on above: Performed By: #### L [id number] ####Line Manager: ALONOZ ALMODOVAR ([phone])[facility])[address] [place] [address] MCHC 33.3 % Normal 30.5-36.0 [facility] Comment on above: Performed By: #### L [id number] ####Line Manager: ALONZO ALMODOVAR ([phone])[facility])[address] [place] [address] MCV (RBC) [Entitic vol] 87.2 fL Normal 77.0-99.0 [facility] Comment on above: Performed By: #### L [id number] ####Line Manager: ALONZO ALMODOVAR ([phone])[facility])[address] [place] [address] Monocytes (Bld) [#/Vol] 0.6 10*3/uL Normal 0.0-0.9 [facility] Comment on above: Performed By: #### L [id number] ####Line Manager: ALONZO ALMODOVAR ([phone])[facility])[address] [place] [address] Monocytes/100 WBC (Bld) 11.6 % Normal 5.0-13.0 [facility] Comment on above: Performed By: #### L [id number] ####Line Manager: ALONZO ALMODOVAR ([phone])[facility])[address] [place] [address] NEUTROPHILS ABSOLUTE 2.8 10*3/uL Normal 1.8-7.5 [facility] Comment on above: Performed By: #### L [id number] ####Line Manager: ALONZO ALMODOVAR ([phone])[facility])[address] [place] [address] Neutrophils/100 WBC (Bld) 51.6 % Normal 38.0-82.0 [facility] Comment on above: Performed By: #### L [id number] ####Line Manager: ALONZO ALMODOVAR ([phone])[facility])[address] [place] [address] NRBC 0.0 /100 WBCs Normal 0.0-2.0 [facility] Comment on above: Performed By: #### L [id number] ####Line Manager: ALONZO ALMODOVAR ([phone])[facility])[address] [place] [address] Platelet mean volume (Bld) [Entitic vol] 9.6 fL Normal 9.0-12.7 [facility] Comment on above: Performed By: #### L [id number] ####Line Manager: ALONZO ALMODOVAR ([phone])[facility])[address] [place] [address] Platelets (Bld) [#/Vol] 242 10*3/uL Normal 140-440 [facility] Comment on above: Performed By: #### L [id number] ####Line Manager: ALONZO ALMODOVAR ([phone])[facility])[address] [place] [address] RBC (Bld) [#/Vol] 4.62 10*6/uL Normal 4.40-5.90 [facility] Comment on above: Performed By: #### L [id number] ####Line Manager: ALONZO ALMODOVAR ([phone])[facility])[address] [place] [address] WBC (Bld) [#/Vol] 5.3 10*3/uL Normal 3.6-10.7 [facility] Comment on above: Performed By: #### L [id number] ####Line Manager: ALONZO ALMODOVAR ([phone])[facility])[address] [place] [address] COMPREHENSIVE METABOLIC PANE Jt 05-31-2023 Albumin [Mass/Vol] 4.4 g/dL Normal 3.5-5.0 [facility] Comment on above: Performed By: #### L [id number], [id number], LAB17, [id number] ####Line Manager: ALONZO ALMODOVAR ([phone])[facility])[address] [place] [address] ALP [Catalytic activity/Vol] 74 U/L Normal 38-126 [facility] Comment on above: Performed By: #### L AB103, [id number], LAB17, [id number] ####Line Manager: ALONZO ALMODOVAR ([phone])[facility])[address] [place] [address] ALT [Catalytic activity/Vol] 34 U/L Normal 0-49 [facility] Comment on above: Performed By: #### L AB103, [id number], LAB17, [id number] ####Line Manager: ALONZO ALMODOVAR ([phone])[facility])[address] [place] [address] Anion gap [Moles/Vol] 5 mmol/L Normal 3-13 [facility] Comment on above: Performed By: #### L AB103, [id number], LAB17, [id number] ####Line Manager: ALONZO ALMODOVAR ([phone])[facility])[address] [place] [address] AST [Catalytic activity/Vol] 32 U/L Normal 15-46 [facility] Comment on above: Performed By: #### L AB103, [id number], LAB17, [id number] ####Line Manager: ALONZO ALMODOVAR ([phone])[facility])[address] [place] [address] Bilirubin [Mass/Vol] 0.6 mg/dL Normal 0.2-1.3 [facility] Comment on above: Performed By: #### L AB103, [id number], LAB17, [id number] ####Line Manager: ALONZO ALMODOVAR ([phone])[facility])[address] [place] [address] Calcium [Mass/Vol] 9.4 mg/dL Normal 8.4-10.4 [facility] Comment on above: Performed By: #### L AB103, [id number], LAB17, [id number] ####Line Manager: ALONZO ALMODOVAR ([phone])[facility])[address] [place] [address] Chloride [Moles/Vol] 103 mmol/L Normal 98-107 [facility] Comment on above: Performed By: #### L AB103, [id number], LAB17, [id number] ####Line Manager: ALONZO ALMODOVAR ([phone])[facility])[address] [place] [address] CO2 [Moles/Vol] 28 mmol/L Normal 22-30 [facility] Comment on above: Performed By: #### L AB103, [id number], LAB17, [id number] ####Line Manager: ALONZO ALMODOVAR ([phone])[facility])[address] [place] [address] Creatinine [Mass/Vol] 0.75 mg/dL Normal 0.66-1.25 [facility] Comment on above: Performed By: #### L AB103, [id number], LAB17, [id number] ####Line Manager: ALONZO ALMODOVAR ([phone])[facility])[address] [place] [address] GLOMERULAR FILTRATION RATE ML/MIN/1.73 SQ M.PREDICTED >90.0 Normal >60.0 [facility] Comment on above: Result Comment: Calc ulation based on the Chronic Kidney Disease Epidemiology Collaboration (CKD-EPI) equation refit without adjustment for race Performed By: #### L [id number], [id number], [id number], [id number] ####Line Manager: ALONZO ALMODOVAR ([id number])[facility])[address] [place] [address] Glucose [Mass/Vol] 91 mg/dL Normal 70-100 [facility] Comment on above: Performed By: #### L [id number], [id number], LAB17, [id number] ####Line Manager: ALONZO ALMODOVAR ([id number])[facility] ([facility])[address] [place] [address] Potassium [Moles/Vol] 4.0 mmol/L Normal 3.5-5.1 [facility] Comment on above: Performed By: #### L [id number], [id number], LAB17, [id number] ####Line Manager: ALONZO ALMODOVAR ([id number])[facility] ([facility])[address] [place] [address] Protein [Mass/Vol] 7.3 g/dL Normal 6.3-8.2 [facility] Comment on above: Performed By: #### L [id number], [id number], LAB17, [id number] ####Line Manager: ALONZO ALMODOVAR ([id number])[facility] [place] [address] Sodium [Moles/Vol] 137 mmol/L Normal 135-145 [facility] Comment on above: Performed By: #### L [id number], [id number], LAB17, [id number] ####Line Manager: ALONZO ALMODOVAR ([id number])[facility] ([facility])[address] [place] [address] Urea nitrogen [Mass/Vol] 12 mg/dL Normal 9-20 [facility] Comment on above: Performed By: #### L [id number], [id number], LAB17, [id number] ####Line Manager: ALONZO ALMODOVAR ([id number])[facility] ([facility])[address] [place] [address] CT Chest WO contraston 05-30 Radiology Study observation (narrative) [facility] Calcium.ionized [Moles/Vol]o n 05-31-2023 Calcium.ionized (Bld) [Moles/Vol] 4.40 mg/dL 4.30 - 5.20 mg/dL [facility] Interpretation and review of laboratory results Normal [facility] PH, IONIZED CALCIUM 7.39 7.31 - 7.46 [facility] Comprehensive metabolic 1998 panelon 05-31-2023 Albumin [Mass/Vol] 4.4 g/dL 3.5 - 5.0 g/dL [facility] ALP [Catalytic activity/Vol] 74 U/L 38 - 126 U/L [facility] ALT [Catalytic activity/Vol] 34 U/L 0 - 49 U/L [facility] Anion gap [Moles/Vol] 5 mmol/L 3 - 13 mmol/L [facility] AST [Catalytic activity/Vol] 32 U/L 15 - 46 U/L [facility] Bilirubin [Mass/Vol] 0.6 mg/dL 0.2 - 1 .3 mg/dL [facility] Calcium [Mass/Vol] 9.4 mg/dL 8.4 - 10. 4 mg/dL [facility] Chloride [Moles/Vol] 103 mmol/L 98 - 10 7 mmol/L [facility] CO2 [Moles/Vol] 28 mmol/L 22 - 30 mmol/L [facility] Creatinine [Mass/Vol] 0.75 mg/dL 0.66 - 1.25 mg/dL [facility] GFR/1.73 sq M.predicted MDRD (S/P/Bld) [Vol rate/Area] - PINF [facility] Comment on above: Calculation based on the Chronic Kidney Disease Epidemiology Collaboration (CKD-EPI) equation refit without adjustment for race Glucose [Mass/Vol] 91 mg/dL 70 - 100 mg/dL [facility] Potassium [Moles/Vol] 4.0 mmol/L 3.5 - 5.1 mmol/L [facility] Protein [Mass/Vol] 7.3 g/dL 6.3 - 8.2 g/dL [facility] Sodium [Moles/Vol] 137 mmol/L 135 - 145 mmol/L [facility] Urea nitrogen [Mass/Vol] 12 mg/dL 9 - 20 mg/d L [facility] HEMOGLOBIN A1Con 05-31-2023 Glucose [Mass/Vol] 131 mg/dL Normal [facility] Comment on above: Performed By: #### L [id number] ####Line Manager: ALONZO ALMODOVAR ([phone])[facility] ([address] HbA1c (Bld) [Mass fraction] 6.2 % High <5.7 [facility] Comment on above: Result Comment: Norm al less than 5.7% Prediabetes 5.7% to 6.4% Diabetes 6.5% or higher --HgbA1C levels may not be accurate in patients who have renal disease, received recent blood transfusions, are anemic, or who have dyshemoglobinemia. Performed By: #### L AB90 ####Line Manager: ALONZO ALMODOVAR ([id number])[facility] ([facility])[address] [place] [address] Laboratory - Chemistry and C hemistry - challengeon 05-31-2023 Troponin I.cardiac [Mass/Vol] ng/mL [facility] ng/mL [facility] Troponin I.cardiac [Mass/Vol] ng/mL [facility] - 0.034 ng/mL [facility] Troponin I.cardiac [Mass/Vol] ng/mL [facility] - 0.034 ng/mL [facility] Average glucose Estimated from glycated hemoglobin (Bld) [Mass/Vol] 131 mg/dL [facility] Magnesium [Mass/Vol] 2.0 mg/dL 1.6 - 2 .3 mg/dL [facility] Laboratory - Coagulationon 0 05-31-2023 aPTT Coag (PPP) [Time] 27.9 s 20.0 - 30.5 s [facility] INR Coag (PPP) [Relative time] 1.0 {INR} 0.9 - 1.1 [facility] Comment on above: Recommended Anticoag ulant Therapy: SEE BELOW ----- INR of 2.0 - 3.0 : - Prophylaxis of Venous Thrombosis (high-risk surgery) - Treatment of Venous Thrombosis - Treatment of Pulmonary Embolism (Includes tissue heart valves, Acute Myocardial Infarction to prevent systemic embolism, Valvular Heart Disease, and Atrial Fibrillation) ----- INR of 2.5 - 3.5 : - Mechanical Prosthetic Valves (high risk) - If oral anticoagulant therapy is used to prevent Myocardial Infarction PT Coag (Bld) [Time] 10.8 s 9.0 - 12.0 s [facility] Laboratory - Hematology and Cell countson 05-31-2023 HbA1c (Bld) [Mass fraction] 6.2 % High [facility] - 5.7 % [facility] Comment on above: Normal less than 5.7 % Prediabetes 5.7% to 6.4% Diabetes 6.5% or higher --HgbA1C levels may not be accurate in patients who have renal disease, received recent blood transfusions, are anemic, or who have dyshemoglobinemia. MAGNESIUMon 05-31-2023 Magnesium [Mass/Vol] 2.0 mg/dL Normal 1.6-2.3 [facility] Comment on above: Performed By: #### L [id number], [id number], LAB17, [id number] ####Line Manager: ALONZO ALMODOVAR ([id number])[facility] ([facility])[address] [place] [address] [place] MRSA BY PCRon 05-31-2023 MRSA BY PCR STAPHYLOCOCCUS AUREUS (A) Reference Detected Not Detected MECA GENE Reference Not Detected Not Detected ORDER COMMENTS: Methicillin-sensitiv e Staphylococcus aureus (MSSA) present; No MRSA detected Negative nasal MRSA PCR has a high negative predictive value for MRSA pneumonia. Consider stopping Vancomycin if no other clinical indication. Positive results do not necessarily indicate active infection with MSSA. Contact Antimicrobial Stewardship for further recommendations. Staphylococcus aureus nasal screen by real-time PCR. This test was modified and its performance characteristics determined by [facility]. The U. S. Food and Drug Administration has not approved or cleared this test; however, FDA clearance or approval is not currently required for clinical use. The results are not intended to be used as the sole means for clinical diagnosis or patient management decisions. Normal [facility] Comment on above: Performed By: #### L [id number] #### Line Manager: ALONZO ALMODOVAR ([phone]) [facility] ([facility]) [address] [place] [address] MRSA DNA ROBERTH+probe Ql (Nose) on 05-31-2023 Interpretation and review of laboratory results Abnormal [facility] mecA gene Not detected Not Detected [facility] Staphylococcus aureus Detected Abnormal Not Detected [facility] Methicillin-sensitiv e Staphylococcus aureus (MSSA) present; No MRSA detected Negative nasal MRSA PCR has a high negative predictive value for MRSA pneumonia. Consider stopping Vancomycin if no other clinical indication. Positive results do not necessarily indicate active infection with MSSA. Contact Antimicrobial Stewardship for further recommendations. Staphylococcus aureus nasal screen by real-time PCR. This test was modified and its performance characteristics determined by [facility]. The U. S. Food and Drug Administration has not approved or cleared this test; however, FDA clearance or approval is not currently required for clinical use. The results are not intended to be used as the sole means for clinical diagnosis or patient management decisions. [facility] No Panel Informationon 05-30 There is diminished right PPG waveforms with radial artery compression indicative of incomplete arch. There are no changes to left PPG signals with radial artery compression indicative of a complete arch. Right Upper Arterial There is diminished right PPG waveforms with radial artery compression indicative of incomplete arch. Left Upper Arterial There are no changes to left PPG signals with radial artery compression indicative of a complete arch. Preliminary Report Preliminary report called to JOSE DANIEL Sultana CNP on 05/31/2023 at 04:00 EST. Director Of Financial Planning Details Photo plethysmography was performed. The exam was performed with the patient in the supine position. Overall the study quality was adequate. Study was technically difficult due to: bedside exam and Abnormal waveforms in left upper extremity. CV CPACS Interpretation and review of laboratory results Normal [facility] Interpretation and review of laboratory results Abnormal [facility] Interpretation and review of laboratory results Normal [facility] Office Visiton 05-31-2023 Follow-up visit [id number] Sylvester Lacy 1960 M Date Provider Department Center 05/31/2023 GISELLA HARRY [facility] CT None Family History Problem Relation Age of Onset Diabetes Mother Family Status - Relation Status Age at Mother Level of Service:23908 ME OFFICE/OP CONSLTJ NEW/EST PT HIGH MDM 55 MINUTES Reason for Visit and Comments: New Patient [542] Normal [facility] PHOSPHORUSon 05-31-2023 Phosphate [Mass/Vol] 3.2 mg/dL Normal 2.5-4.5 [facility] Comment on above: Performed By: #### L [id number], [id number], LAB17, [id number] ####Line Manager: ALONZO ALMODOVAR ([phone])[facility] ([address] PROTIME AND APTTon aPTT Coag (Bld) [Time] 27.9 s Normal 20.0-30.5 [facility] Comment on above: Performed By: #### L [id number] ####Line Manager: ALONZO ALMODOVAR ([id number])[facility])[address] [place] [address] INR Coag (PPP) [Relative time] 1.0 {INR} Normal 0.9-1.1 [facility] Comment on above: Result Comment: Kam mmended Anticoagulant Therapy: SEE BELOW ----- INR of 2.0 - 3.0 : - Prophylaxis of Venous Thrombosis (high-risk surgery) - Treatment of Venous Thrombosis - Treatment of Pulmonary Embolism (Includes tissue heart valves, Acute Myocardial Infarction to prevent systemic embolism, Valvular Heart Disease, and Atrial Fibrillation) ----- INR of 2.5 - 3.5 : - Mechanical Prosthetic Valves (high risk) - If oral anticoagulant therapy is used to prevent Myocardial Infarction Performed By: #### L [id number] ####Line Manager: ALONZO ALMODOVAR ([id number])[facility])[address] [place] [address] PT Coag (PPP) [Time] 10.8 s Normal 9.0-12.0 [facility] Comment on above: Performed By: #### L [id number] ####Line Manager: ALONZO ALMODOVAR ([id number])[facility])[address] [place] [address] Phosphate [Moles/Vol]on Phosphate [Mass/Vol] 3.2 mg/dL 2.5 - 4 .5 mg/dL [facility] Progress Noteon 05-31-2023 Progress Note Per pt his PCP is aware he is here Normal [facility] Progress Note Pre op teaching done with patient. Pt being direct admitted today. All questions answered. Normal [facility] Progress Note [facility] [address] [facility] [address] Dept: [phone] Dept Loc: [phone] Visit type: New Reason for Visit: Coronary artery disease Assessment and plan 62 M with MVCAD Coronary artery disease: I discussed with him the indications, risks, benefits, and perioperative course of a coronary artery bypass grafting. I discussed alternatives including no intervention, medical therapy only, and percutaneous coronary intervention with medications. A surgical revascularization is recommended in his case. On my review of the coronary angiogram, he does have good targets and will need 4-6 vessel bypass grafts. He is quite functional and is of low risk. He is agreeable. He does have unstable angina with palpitations and probable arrhythmias. This is concerning. I will admit him for management and pre-op studies with urgent CABG in <24 hours given his symptoms and degree of stenosis in all vessels. A modified winnie's test in the office revealed hand perfusion with radial occlusion. A left radial palmar arch study will be ordered along with a CT scan. I discussed arterial use for grafting, radial harvest, BIMA harvest. The risks of the procedure/s include but are not limited to, bleeding, infection, pneumonia, respiratory failure, prolonged Intensive Care Unit stay, multiorgan failure, renal failure needing temporary and/or permanent dialysis, cerebrovascular accident, pulmonary embolism, deep venous thrombosis, cardiac failure or ischemia or arrhythmia, and . Gisella Huang MD Cardiothoracic Surgery History of Present Illness Sylvester Lacy is a 62 y.o. male referred by MIESHA Yuan for severe triple-vessel disease with preserved left ventricular systolic function. Per note, pt with history of CAD with stenting of RCA and PDA in 2008, HTN. Pt had a stress test at the [facility] December 2022 which demonstrated no reversible ischemia, fixed inferior defect likely represents attenuation artifact versus small possible scar. Pt saw Cardiology in February 2023 with complaints of chest pain with exertion in the last 4 years. Echocardiogram was ordered and completed on 04/07/23 which demonstrated an EF of 55%, LV normal, stage 1 diastolic dysfunction, pulmonary artery systolic pressure is 30 mmHg. Pt then underwent a heart catheterization on 05/19/23 which showed severe triple-vessel disease with preserved left ventricular systolic function. Cardiac cath showed 90% D1, 90% D2, 80% mLAD, 90% ostial OM1, 80% mCirc, 90% mRCA Pt is a former smoker. He has been having recurrent chest pain, fatigue, and shortness of breath. Pt is here now for an evaluation. Past Medical History Past Medical History: Diagnosis Date Atherosclerosis of coronary artery Hay fever Hemorrhoids History of alcohol abuse History of inferior wall myocardial infarction History of pulmonary embolism Hyperlipidemia Hypertension Mucous cyst of digit of hand NSVT (nonsustained ventricular tachycardia) (HCC) Past Surgical History Past Surgical History: Procedure Laterality Date CORONARY STENT PLACEMENT 2009 Family History Family History Problem Relation Name Age of Onset Diabetes Mother Social History Social History Tobacco Use Smoking status: Former Packs/day: 1.50 Years: 30.00 Additional pack years: 0.00 Total pack years: 45.00 Types: Cigarettes Quit date: 2014 Years since quittin.1 Smokeless tobacco: Never Substance Use Topics Alcohol use: Yes Alcohol/week: 12.0 standard drinks of alcohol Types: 12 Cans of beer per week Drug use: Never Allergies No Known Allergies Medications No current facility-administere d medications for this visit. No current outpatient medications on file. Facility-Administere d Medications Ordered in Other Visits: [START ON 06/01/2023] chlorhexidine (Hibiclens) 4 % liquid, , Topical, Once, JOSE DANIEL Sultana CNP chlorhexidine (Hibiclens) 4 % liquid, , Topical, Once, JOSE DANIEL Sultana CNP [START ON 06/01/2023] chlorhexidine (Peridex) 0.12 % solution 15 mL, 15 mL, Mouth/Throat, Once, JOSE DANIEL Sultana CNP chlorhexidine (Peridex) 0.12 % solution 15 mL, 15 mL, Mouth/Throat, Once, JOSE DANIEL Sultana CNP [START ON 06/01/2023] mupirocin (Bactroban) 2 % ointment, , Topical, Once, JOSE DANIEL Sultana CNP mupirocin (Bactroban) 2 % ointment, , Topical, Once, JOSE DANIEL Sultana CNP Review of Systems Review of Systems Constitutional: Positive for fatigue. Respiratory: Positive for shortness of breath (on exertion). Cardiovascular: Positive for chest pain (with exertion). All other systems reviewed and are negative. Physical Exam Vitals: BP (!) 147/92 (BP Location: Left arm, Patient Position: Sitting, BP Cuff Size: Adult) Pulse 65 Ht 5' 9 (1.753 m) Wt 245 lb (111 kg) BMI 36.18 kg/m? C (more content not included)... Normal [facility] TROPONIN Ion 05-31-2023 Troponin I.cardiac [Mass/Vol] ng/mL Normal <0.034 [facility] Comment on above: Result Comment: ROGER R COMMENTS: Patients with high levels of Biotin oral intake (ie >5 mg/day) may have falsely decreased Troponin levels. Performed By: #### L [id number], [id number] #### Line Manager: ALONZO ALMODOVAR ([id number]) [facility]) [address] [place] [address] Troponin I.cardiac [Mass/Vol] ng/mL Normal <0.034 [facility] Comment on above: Result Comment: ROGER R COMMENTS: Patients with high levels of Biotin oral intake (ie >5 mg/day) may have falsely decreased Troponin levels. Performed By: #### L [id number] ####Line Manager: ALONZO ALMODOVAR ([id number])[facility] ([facility])[address] [place] [address] TROPONIN, WITH SERIAL REFLEX on 05-31-2023 Troponin I.cardiac [Mass/Vol] ng/mL Normal <0.034 [facility] Comment on above: Result Comment: ROGER R COMMENTS: Patients with high levels of Biotin oral intake (ie >5 mg/day) may have falsely decreased Troponin levels. Performed By: #### L [id number], [id number], LAB17, [id number] ####Line Manager: ALONZO ALMODOVAR ([id number])[facility] ([facility])[address] [place] [address] Troponin I.cardiac [Mass/Vol ]on 05-31-2023 Interpretation and review of laboratory results Normal [facility] Patients with high levels of Biotin oral intake (ie >5 mg/day) may have falsely decreased Troponin levels. [facility] Interpretation and review of laboratory results Normal [facility] Patients with high levels of Biotin oral intake (ie >5 mg/day) may have falsely decreased Troponin levels. [facility] Interpretation and review of laboratory results Normal [facility] Patients with high levels of Biotin oral intake (ie >5 mg/day) may have falsely decreased Troponin levels. [facility] aPTT Coag (Bld) [Time]on aPTT Coag (PPP) [Time] 34.2 s High 20.0 - 30.5 s [facility] Interpretation and review of laboratory results Abnormal [facility] NOTE: The therapeutic time for Heparin anticoagulation, based on Xa activity inhibition, is an APTT of 46-80 seconds. [facility] Absolute lymphocyte countOrd ered By: Michelle Davies on 05-17-2023 Lymphocytes Auto (Unsp spec) [#/Vol] 1.75 10*3/uL 0.83-4.51 [facility] Activated partial thrombopla stin time (aPTT) in platelet poor plasma by coagulation aOrdered By: Michelle Davies on 05-17-2023 aPTT Coag (PPP) [Time] 30.3 s 24.1-36.2 [facility] Automated lymphocyte count a s percentage of total leukocytesOrdered By: Michelle Davies on 05-17-2023 Lymphocytes/100 WBC Auto (Unsp spec) 29.7 % 19-41 [facility] Basophil percentageOrdered B y: Michelle Davies on 05-17-2023 Basophils/100 WBC (Bld) 0.7 % 0-1 [facility] Chloride [Moles/Vol] 109 mmol/L 98-107 [facility] Eosinophils/100 WBC (Bld) 2.0 % 0-5 [facility] Glucose [Mass/Vol] 92 mg/dL 74-106 [facility] Hemoglobin (Bld) [Mass/Vol] 14.3 g/dL 13.0-16.5 [facility] Monocytes/100 WBC (Bld) 10.5 % 0-10 [facility] Neutrophils (Bld) [#/Vol] 3.3 10*3/uL 2.0-7.7 [facility] Neutrophils/100 WBC (Bld) 56.8 % 47-70 [facility] Potassium [Moles/Vol] 4.4 mmol/L 3.5-5.1 [facility] Sodium [Moles/Vol] 141 mmol/L 136-145 [facility] WBC (Bld) [#/Vol] 5.9 10*3/uL 4.4-11.0 [facility] Determination of erythrocyte mean corpuscular volume (MCV)Ordered By: Michelle Davies on 05-17-2023 MCV (RBC) [Entitic vol] 88.7 fL 80-94 [facility] Erythrocyte distribution wid th ratioOrdered By: Michelle Davies on 05-17-2023 Erythrocyte distribution width (RBC) [Ratio] 13.2 % 11.6-14.6 [facility] Erythrocyte distribution wid th standard deviationOrdered By: Michelle Davies on 05-17-2023 Erythrocyte distribution width (RBC) [Entitic vol] 43.4 fL 35.1-43.9 [facility] Hematocrit Auto (Bld) [Volum e fraction]Ordered By: Michelle Davies on 05-17-2023 Hematocrit (Bld) [Volume fraction] 43.8 % 40-54 [facility] Immature granulocytes/100 WB C Auto (Bld)Ordered By: Michelle Davies on 05-17-2023 Immature granulocytes/100 WBC (Bld) 0.300 % 0.0-0.9 [facility] Comment on above: IG% - Immature Granu locytes (promyelocytes, myelocytes and metamyelocytes) > 1% indicates that a LEFT SHIFT is Present. Laboratory - Chemistry and C hemistry - challengeOrdered By: Michelle Davies on 05-17-2023 CO2 [Moles/Vol] 28.0 mmol/L 21.0-32.0 [facility] Urea nitrogen/Creatinine [Mass ratio] 16.4 mg/mg 10-20 [facility] Laboratory - CoagulationOrde red By: Michelle Davies on 05-17-2023 INR Coag (Bld) [Relative time] 1.0 {INR} [facility] PT Coag (PPP) [Time] 13.2 s 11.7-14.9 [facility] Laboratory - Hematology and Cell countsOrdered By: Michelle Davies on 05-17-2023 MCH (RBC) [Entitic mass] 28.9 pg 27.0-32.0 [facility] MCHC (RBC) [Mass/Vol] 32.6 g/dL 32-36 [facility] Nucleated RBC/100 WBC (Bld) [Ratio] 0 % 0-5 [facility] Platelet mean volume (Bld) [Entitic vol] 9.5 fL 6.2-12.0 [facility] Platelets (Bld) [#/Vol] 286 10*3/uL 150-450 [facility] No Panel InformationOrdered By: Michelle Davies on 05-17-2023 Estimated GFR (MDRD) Amer 100 mL/min >60 [facility] Comment on above: GFR Calc Estimated GFR (MDRD) Non-Af Amer 83 mL/min >60 [facility] Comment on above: Non- GFR Calc RBC Auto (Bld) [#/Vol]Ordere d By: Michelle Davies on 05-17-2023 RBC (Bld) [#/Vol] 4.94 10*6/uL 4.6-6.2 [facility] Serum or plasma calcium yaya urement (mass/volume)Ordered By: Michelle Davies on 05-17-2023 Calcium [Mass/Vol] 9.3 mg/dL 8.5-10.1 [facility] Serum or plasma creatinine m easurement (mass/volume)Ordered By: Michelle Davies on 05-17-2023 Creatinine [Mass/Vol] 0.97 mg/dL 0.70-1.30 [facility] Comment on above: The validity of the calculated GFR & GFRAA in patients over 70 years has not been determined. Clinical correlation is essential. Serum or plasma urea nitroge n measurement (mass/volume)Ordered By: Michelle Davies on 05-17-2023 Urea nitrogen [Mass/Vol] 16 mg/dL 7-18 [facility] [facility] Thin prep Papanicolaou smear with manual screeningOrdered By: Michelle Davies on 05-17-2023 Thin prep Papanicolaou smear with manual screening 4 5-15 [facility] Absolute lymphocyte countOrd ered By: Dr. Oneil on 06-16-2022 Lymphocytes Auto (Unsp spec) [#/Vol] 1.85 10*3/uL 0.83-4.51 [facility] Basophil percentageOrdered B y: Dr. Oneil on 06-16-2022 Basophils/100 WBC (Bld) 1.0 % 0-1 [facility] Chloride [Moles/Vol] 109 mmol/L 98-107 [facility] Eosinophils/100 WBC (Bld) 2.9 % 0-5 [facility] Glucose [Mass/Vol] 98 mg/dL 74-106 [facility] Neutrophils (Bld) [#/Vol] 2.2 10*3/uL 2.0-7.7 [facility] Neutrophils/100 WBC (Bld) 44.6 % 47-70 [facility] Potassium [Moles/Vol] 4.8 mmol/L 3.5-5.1 [facility] Sodium [Moles/Vol] 141 mmol/L 136-145 [facility] WBC (Bld) [#/Vol] 4.8 10*3/uL 4.4-11.0 [facility] Blood erythrocytes count (nu mber/volume)Ordered By: Dr. Oneil on 06-16-2022 RBC (Bld) [#/Vol] 4.60 10*6/uL 4.6-6.2 [facility] Blood hemoglobin measurement (mass/volume)Ordered By: Dr. Oneil on 06-16-2022 Hemoglobin (Bld) [Mass/Vol] 13.3 g/dL 13.0-16.5 [facility] Blood lymphocytes/100 leukoc ytesOrdered By: Dr. Oneil on 06-16-2022 Lymphocytes/100 WBC (Bld) 38.4 % 19-41 [facility] Blood monocytes/100 leukocyt esOrdered By: Dr. Oneil on 06-16-2022 Monocytes/100 WBC (Bld) 12.7 % 0-10 [facility] Blood platelet mean volumeOr dered By: Dr. Oneil on 06-16-2022 Platelet mean volume (Bld) [Entitic vol] 9.3 fL 6.2-12.0 [facility] Determination of erythrocyte mean corpuscular volume (MCV)Ordered By: Dr. Oneil on 06-16-2022 MCV (RBC) [Entitic vol] 90.9 fL 80-94 [facility] Hematocrit Auto (Bld) [Volum e fraction]Ordered By: Dr. Oneil on 06-16-2022 Hematocrit (Bld) [Volume fraction] 41.8 % 40-54 [facility] Laboratory - Chemistry and C hemistry - challengeOrdered By: Dr. Oneil on 06-16-2022 CO2 [Moles/Vol] 30.0 mmol/L 21.0-32.0 [facility] Urea nitrogen/Creatinine [Mass ratio] 16.8 mg/mg 10-20 [facility] Laboratory - Hematology and Cell countsOrdered By: Dr. Oneil on 06-16-2022 Erythrocyte distribution width (RBC) [Entitic vol] 43.8 fL 35.1-43.9 [facility] Erythrocyte distribution width (RBC) [Ratio] 13.2 % 11.6-14.6 [facility] Immature granulocytes/100 WBC (Bld) 0.400 % 0.0-0.9 [facility] Comment on above: IG% - Immature Granu locytes (promyelocytes, myelocytes and metamyelocytes) > 1% indicates that a LEFT SHIFT is Present. MCH (RBC) [Entitic mass] 28.9 pg 27.0-32.0 [facility] Nucleated RBC/100 WBC (Bld) [Ratio] 0 % 0-5 [facility] MCHC Auto (RBC) [Mass/Vol]Or dered By: Dr. Oneil on 06-16-2022 MCHC (RBC) [Mass/Vol] 31.8 g/dL 32-36 [facility] No Panel InformationOrdered By: Dr. Oneil on 06-16-2022 Estimated Creatinine Clearance Calc 67.78 ml/min [facility] Estimated GFR (MDRD) Amer 84 mL/min >60 [facility] Comment on above: GFR Calc Estimated GFR (MDRD) Non-Af Amer 70 mL/min >60 [facility] Comment on above: Non- GFR Calc Troponin I High Sensitivity 5 pg/mL 3.0-78.0 [facility] Comment on above: Please Note: New Nafisa t Units and Gender Specific Reference Ranges. For more information see Policy Stat Procedure [place] High Sensitivity Troponin (TNIH) and attachments. Platelets bldOrdered By: Dr. Oneil on 06-16-2022 Platelets (Bld) [#/Vol] 221 10*3/uL 150-450 [facility] Serum or plasma calcium yaya urement (mass/volume)Ordered By: Dr. Oneil on 06-16-2022 Calcium [Mass/Vol] 9.1 mg/dL 8.5-10.1 [facility] Serum or plasma creatinine m easurement (mass/volume)Ordered By: Dr. Oneil on 06-16-2022 Creatinine [Mass/Vol] 1.13 mg/dL 0.70-1.30 [facility] Comment on above: The validity of the calculated GFR & GFRAA in patients over 70 years has not been determined. Clinical correlation is essential. Serum or plasma urea nitroge n measurement (mass/volume)Ordered By: Dr. Oneil on 06-16-2022 Urea nitrogen [Mass/Vol] 19 mg/dL 7-18 [facility] Thin prep Papanicolaou smear with manual screeningOrdered By: Dr. Oneil on 06-16-2022 Thin prep Papanicolaou smear with manual screening 2 5-15 [facility] Absolute lymphocyte countOrd ered By: Dr. Palacio on 04-16-2022 Lymphocytes Auto (Unsp spec) [#/Vol] 1.30 10*3/uL 0.83-4.51 [facility] Basophil percentageOrdered B y: Dr. Palacio on 04-16-2022 Basophils/100 WBC (Bld) 0.6 % 0-1 [facility] Chloride [Moles/Vol] 110 mmol/L 98-107 [facility] Eosinophils/100 WBC (Bld) 2.1 % 0-5 [facility] Glucose [Mass/Vol] 108 mg/dL 74-106 [facility] Comment on above: Fasting Glucose resu lt from 100 to 125 mg/dL suggests IMPAIRED HOMEOSTASIS per A.D.A. criteria. Neutrophils (Bld) [#/Vol] 1.5 10*3/uL 2.0-7.7 [facility] Neutrophils/100 WBC (Bld) 44.8 % 47-70 [facility] Potassium [Moles/Vol] 4.2 mmol/L 3.5-5.1 [facility] Sodium [Moles/Vol] 143 mmol/L 136-145 [facility] WBC (Bld) [#/Vol] 3.3 10*3/uL 4.4-11.0 [facility] Blood erythrocytes count (nu mber/volume)Ordered By: Dr. Palacio on 04-16-2022 RBC (Bld) [#/Vol] 4.95 10*6/uL 4.6-6.2 [facility] Blood hemoglobin measurement (mass/volume)Ordered By: Dr. Palacio on 04-16-2022 Hemoglobin (Bld) [Mass/Vol] 14.4 g/dL 13.0-16.5 [facility] Blood lymphocytes/100 leukoc ytesOrdered By: Dr. Palacio on 04-16-2022 Lymphocytes/100 WBC (Bld) 39.2 % 19-41 [facility] Blood monocytes/100 leukocyt esOrdered By: Dr. Palacio on 04-16-2022 Monocytes/100 WBC (Bld) 13.0 % 0-10 [facility] Blood platelet mean volumeOr dered By: Dr. Palacio on 04-16-2022 Platelet mean volume (Bld) [Entitic vol] 9.1 fL 6.2-12.0 [facility] Determination of erythrocyte mean corpuscular volume (MCV)Ordered By: Dr. Palacio on 04-16-2022 MCV (RBC) [Entitic vol] 90.1 fL 80-94 [facility] Hematocrit Auto (Bld) [Volum e fraction]Ordered By: Dr. Palacio on 04-16-2022 Hematocrit (Bld) [Volume fraction] 44.6 % 40-54 [facility] Influenza virus A and B and SARS-CoV-2 (COVID-19) Ag panel - Upper respiratory specimOrdered By: Dr. Palacio on 04-16-2022 SARS-CoV-2 & FLU Antigen (Rapid) SARS-CoV-2 (COVID 19) [facility] SARS-CoV-2 (COVID-19) RNA ROBERTH+probe Ql (Resp) [facility] Laboratory - Chemistry and C hemistry - challengeOrdered By: Dr. Palacio on 04-16-2022 CO2 [Moles/Vol] 30.0 mmol/L 21.0-32.0 [facility] Urea nitrogen/Creatinine [Mass ratio] 22.6 mg/mg 10-20 [facility] Laboratory - Hematology and Cell countsOrdered By: Dr. Palacio on 04-16-2022 Erythrocyte distribution width (RBC) [Entitic vol] 42.5 fL 35.1-43.9 [facility] Erythrocyte distribution width (RBC) [Ratio] 12.8 % 11.6-14.6 [facility] Immature granulocytes/100 WBC (Bld) 0.300 % 0.0-0.9 [facility] Comment on above: IG% - Immature Granu locytes (promyelocytes, myelocytes and metamyelocytes) > 1% indicates that a LEFT SHIFT is Present. MCH (RBC) [Entitic mass] 29.1 pg 27.0-32.0 [facility] Nucleated RBC/100 WBC (Bld) [Ratio] 0 % 0-5 [facility] MCHC Auto (RBC) [Mass/Vol]Or dered By: Dr. Palacio on 04-16-2022 MCHC (RBC) [Mass/Vol] 32.3 g/dL 32-36 [facility] No Panel InformationOrdered By: Dr. Palacio on 04-16-2022 Estimated Creatinine Clearance Calc 95.74 ml/min [facility] Estimated GFR (MDRD) Amer 127 mL/min >60 [facility] Comment on above: GFR Calc Estimated GFR (MDRD) Non-Af Amer 105 mL/min >60 [facility] Comment on above: Non- GFR Calc Platelets bldOrdered By: Dr. Palacio on 04-16-2022 Platelets (Bld) [#/Vol] 172 10*3/uL 150-450 [facility] Serum or plasma calcium yaya urement (mass/volume)Ordered By: Dr. Palacio on 04-16-2022 Calcium [Mass/Vol] 8.6 mg/dL 8.5-10.1 [facility] Serum or plasma creatinine m easurement (mass/volume)Ordered By: Dr. Palacio on 04-16-2022 Creatinine [Mass/Vol] 0.80 mg/dL 0.70-1.30 [facility] Comment on above: The validity of the calculated GFR & GFRAA in patients over 70 years has not been determined. Clinical correlation is essential. Serum or plasma urea nitroge n measurement (mass/volume)Ordered By: Dr. Palacio on 04-16-2022 Urea nitrogen [Mass/Vol] 18 mg/dL 7-18 [facility] Thin prep Papanicolaou smear with manual screeningOrdered By: Dr. Palacio on 04-16-2022 Thin prep Papanicolaou smear with manual screening 3 5-15 [facility] Absolute lymphocyte counton 06-25-2021 Lymphocytes Auto (Unsp spec) [#/Vol] 1.61 10*3/uL 0.83-4.51 [facility] Work Phone: Basophil percentageon 2021 Basophils/100 WBC (Bld) 1.0 % 0-1 [facility] Work Phone: Chloride [Moles/Vol] 106 mmol/L 98-107 [facility] Work Phone: Eosinophils/100 WBC (Bld) 2.4 % 0-5 [facility] Work Phone: Glucose [Mass/Vol] 80 mg/dL 74-106 [facility] Work Phone: Neutrophils (Bld) [#/Vol] 2.6 10*3/uL 2.0-7.7 [facility] Work Phone: Neutrophils/100 WBC (Bld) 52.3 % 47-70 [facility] Work Phone: [phone] Potassium [Moles/Vol] 4.2 mmol/L 3.5-5.1 [facility] Work Phone: Sodium [Moles/Vol] 138 mmol/L 136-145 [facility] Work Phone: [phone] WBC (Bld) [#/Vol] 4.9 10*3/uL 4.4-11.0 [facility] Work Phone: [phone] Blood erythrocytes count (nu mber/volume)on 06-25-2021 RBC (Bld) [#/Vol] 4.68 10*6/uL 4.6-6.2 [facility] Work Phone: Blood hemoglobin measurement (mass/volume)on 06-25-2021 Hemoglobin (Bld) [Mass/Vol] 13.6 g/dL 13.0-16.5 [facility] Work Phone: Blood lymphocytes/100 leukoc yteson 06-25-2021 Lymphocytes/100 WBC (Bld) 32.7 % 19-41 [facility] Work Phone: Blood monocytes/100 leukocyt eson 06-25-2021 Monocytes/100 WBC (Bld) 11.2 % 0-10 [facility] Work Phone: Blood platelet mean volumeon 06-25-2021 Platelet mean volume (Bld) [Entitic vol] 8.7 fL 6.2-12.0 [facility] Work Phone: Determination of erythrocyte mean corpuscular volume (MCV)on 06-25-2021 MCV (RBC) [Entitic vol] 88.5 fL 80-94 [facility] Work Phone: Hematocrit Auto (Bld) [Volum e fraction]on 06-25-2021 Hematocrit (Bld) [Volume fraction] 41.4 % 40-54 [facility] Work Phone: INR in Blood by Coagulation assayon 06-25-2021 INR Coag (Bld) [Relative time] 1.0 {INR} [facility] Work Phone: Laboratory - Chemistry and C hemistry - challengeon 06-25-2021 CO2 [Moles/Vol] 30.0 mmol/L 21.0-32.0 [facility] Work Phone: Urea nitrogen/Creatinine [Mass ratio] 20.9 mg/mg 10-20 [facility] Work Phone: Laboratory - Coagulationon 0 06-25-2021 aPTT Coag (Bld) [Time] 31.9 s 24.1-36.2 [facility] vaishnavi [facility] Work Phone: PT Coag (PPP) [Time] 12.5 s 11.7-14.[address] [facility] Work Phone: Laboratory - Hematology and Cell countson 06-25-2021 Erythrocyte distribution width (RBC) [Entitic vol] 42.6 fL 35.1-43.9 [facility] Work Phone: Erythrocyte distribution width (RBC) [Ratio] 13.2 % 11.6-14.6 [facility] Work Phone: Immature granulocytes/100 WBC (Bld) 0.400 % 0.0-0.9 [facility] Work Phone: Comment on above: IG% - Immature Granu locytes (promyelocytes, myelocytes and metamyelocytes) > 1% indicates that a LEFT SHIFT is Present. MCH (RBC) [Entitic mass] 29.1 pg 27.0-32.0 [facility] Work Phone: Nucleated RBC/100 WBC (Bld) [Ratio] 0 % 0-5 [facility] Work Phone: MCHC Auto (RBC) [Mass/Vol]on 06-25-2021 MCHC (RBC) [Mass/Vol] 32.9 g/dL 32-36 [facility] Work Phone: No Panel Informationon 06-25 Estimated Creatinine Clearance Calc 102.07 ml/min [facility] Work Phone: Estimated GFR (MDRD) Amer 133 mL/min >60 [facility] Work Phone: Comment on above: GFR Calc Estimated GFR (MDRD) Non-Af Amer 110 mL/min >60 [facility] Work Phone: Comment on above: Non- GFR Calc Troponin I High Sensitivity 4 pg/mL 3.0-78.0 [facility] Work Phone: Comment on above: Please Note: New Nafisa t Units and Gender Specific Reference Ranges. For more information see Policy Stat Procedure [place] High Sensitivity Troponin (TNIH) and attachments. Platelets bldon 06-25-2021 Platelets (Bld) [#/Vol] 236 10*3/uL 150-450 [facility] Work Phone: Serum or plasma calcium yaya urement (mass/volume)on 06-25-2021 Calcium [Mass/Vol] 8.7 mg/dL 8.5-10.1 [facility] Work Phone: Serum or plasma creatinine m easurement (mass/volume)on 06-25-2021 Creatinine [Mass/Vol] 0.76 mg/dL 0.70-1.30 [facility] Work Phone: Comment on above: The validity of the calculated GFR & GFRAA in patients over 70 years has not been determined. Clinical correlation is essential. Serum or plasma urea nitroge n measurement (mass/volume)on 06-25-2021 Urea nitrogen [Mass/Vol] 16 mg/dL 7-18 [facility] Work Phone: Thin prep Papanicolaou smear with manual screeningon 06-25-2021 Thin prep Papanicolaou smear with manual screening 2 5-15 [facility] Work Phone: Vital Signs Date Time Vital Sign Value Performing Clinician Micheli basil 08-23-2024 08:15-0400 Body height 175.26 cm [facility] 08-23-2024 08:15-0400 Body mass index (BMI) [Ratio] 37 kg/m2 [facility] 08-23-2024 08:15-0400 Body weight 113.85 kg [facility] 08-23-2024 08:15-0400 Diastolic blood pressure 75 mm[Hg] [facility] 08-23-2024 08:15-0400 Heart rate 78 /min [facility] 08-23-2024 08:15-0400 Respiratory rate 16 /min [facility] 08-23-2024 08:15-0400 Systolic blood pressure 109 mm[Hg] [facility] 07-24-2023 13:05-0400 Body height 175.26 cm [facility] 07-24-2023 13:05-0400 Diastolic blood pressure 70 mm[Hg] [facility] 07-24-2023 13:05-0400 Systolic blood pressure 120 mm[Hg] [facility] 07-24-2023 13:03-0400 Body mass index (BMI) [Ratio] 34.5 kg/m2 [facility] 07-24-2023 13:03-0400 Body weight 106.14 kg [facility] 07-24-2023 13:03-0400 Heart rate 75 /min [facility] 07-24-2023 13:03-0400 Respiratory rate 18 /min [facility] 07-24-2023 13:03-0400 SaO2% (BldA) [Mass fraction] 94 % [facility] 07-20-2023 08:58-0400 Body height 175.3 cm Darion Lopes APRN - [employer]ARY D[employer] OPERATOR Work Phone: [facility] 07-20-2023 08:58-0400 Body mass index (BMI) [Ratio] 35 kg/m2 Darion Lopes APRN - [employer]ARY D[employer]LL OPERATOR Work Phone: [facility] 07-20-2023 08:58-0400 Body weight 107.5 kg Darion Lopes APRN - ROTARY DRILL OPERATOR Work Phone: [facility] 07-20-2023 08:58-0400 Diastolic blood pressure 93 mm[Hg] Darion Lopes APRN - ROTARY DRILL OPERATOR Work Phone: [facility] 07-20-2023 08:58-0400 Heart rate 66 /min Darion Lopes APRN - R[employer]ARY DRILL OPERATOR Work Phone: [facility] 07-20-2023 08:58-0400 Systolic blood pressure 143 mm[Hg] Darion Lopes APRN - ROTARY DRILL OPERATOR Work Phone: [facility] 07-03-2023 08:21-0400 Body mass index (BMI) [Ratio] 34.8 kg/m2 [facility] 07-03-2023 08:15-0400 Body height 175.26 cm [facility] 07-03-2023 08:15-0400 Body weight 107.04 kg [facility] 07-03-2023 08:09-0400 Diastolic blood pressure 74 mm[Hg] [facility] 07-03-2023 08:09-0400 Heart rate 92 /min [facility] 07-03-2023 08:09-0400 SaO2% (BldA) [Mass fraction] 95 % [facility] 07-03-2023 08:09-0400 Systolic blood pressure 110 mm[Hg] [facility] 06-20-2023 10:55-0400 Body mass index (BMI) [Ratio] 34.8 kg/m2 [facility] 06-20-2023 10:55-0400 Body weight 107.04 kg [facility] 06-20-2023 10:55-0400 Diastolic blood pressure 74 mm[Hg] [facility] 06-20-2023 10:55-0400 Heart rate 92 /min [facility] 06-20-2023 10:55-0400 Respiratory rate 16 /min [facility] 06-20-2023 10:55-0400 Systolic blood pressure 110 mm[Hg] [facility] 06-14-2023 09:40-0400 Body height 175.3 cm Darion Lopes APRN - [employer]ARY D[employer]LL OPERATOR Work Phone: [facility] 06-14-2023 09:40-0400 Body mass index (BMI) [Ratio] 33.97 kg/m2 Darion Lopes APRN - [employer]ARY D[employer]LL OPERATOR Work Phone: [facility] 06-14-2023 09:40-0400 Body weight 104.33 kg Darion Lopes APRN - [employer]ARY D[employer]LL OPERATOR Work Phone: [facility] 06-14-2023 09:40-0400 Diastolic blood pressure 79 mm[Hg] Darion Lopes APRN - ROTARY DRILL OPERATOR Work Phone: [facility] 06-14-2023 09:40-0400 Heart rate 85 /min Darion Lopes APRN - ROTARY DRILL OPERATOR Work Phone: [facility] 06-14-2023 09:40-0400 Systolic blood pressure 117 mm[Hg] Darion Lopes APRN - ROTARY DRILL OPERATOR Work Phone: [facility] 06-06-2023 08:05-0400 Body temperature 98.2 [degF] Gisella Huang MD Work Phone: [facility] 06-06-2023 08:05-0400 Diastolic blood pressure 76 mm[Hg] Gisella Huang MD Work Phone: [facility] 06-06-2023 08:05-0400 Heart rate 96 /min Gisella Huang MD Work Phone: [facility] 06-06-2023 08:05-0400 Respiratory rate 20 /min Gisella Huang MD Work Phone: [facility] 06-06-2023 08:05-0400 SaO2% (BldA) [Mass fraction] 93 % Gisella Huang MD Work Phone: [facility] 06-06-2023 08:05-0400 Systolic blood pressure 116 mm[Hg] Gisella Huang MD Work Phone: [facility] 06-06-2023 06:00-0400 Body mass index (BMI) [Ratio] 34.48 kg/m2 Gisella Huang MD Work Phone: [facility] 06-06-2023 06:00-0400 Body weight 105.9 kg Gisella Huang MD Work Phone: [facility] 06-02-2023 11:12-0500 Body height 175.3 cm Gisella Huang MD Work Phone: [facility] 06-01-2023 13:28-0500 SaO2% (BldA) [Mass fraction] 98.7 % Gisella Huang MD Work Phone: [facility] 05-31-2023 08:34-0500 Body height 175.3 cm Gisella Huang MD Work Phone: [employer] [facility] 05-31-2023 08:34-0500 Body mass index (BMI) [Ratio] 36.18 kg/m2 Gisella Huang MD Work Phone: [employer] [facility] 05-31-2023 08:34-0500 Body weight 111.13 kg Gisella Huang MD Work Phone: [facility] 05-31-2023 08:34-0500 Diastolic blood pressure 92 mm[Hg] Gisella Huang MD Work Phone: [facility] 05-31-2023 08:34-0500 Heart rate 65 /min Gisella Huang MD Work Phone: [facility] 05-31-2023 08:34-0500 Systolic blood pressure 147 mm[Hg] Gisella Huang MD Work Phone: [facility] 05-19-2023 07:12-0500 Body height 175.26 cm [facility] 05-19-2023 07:12-0500 Body weight 109.76 kg [facility] 05-18-2023 07:38-0500 Body mass index (BMI) [Ratio] 35.7 kg/m2 [facility] 03-09-2023 09:46-0500 Body height 175.26 cm [facility] 03-09-2023 09:43-0500 Body mass index (BMI) [Ratio] 35.7 kg/m2 [facility] 03-09-2023 09:43-0500 Body weight 109.76 kg [facility] 03-09-2023 09:43-0500 Diastolic blood pressure 89 mm[Hg] [facility] 03-09-2023 09:43-0500 Heart rate 85 /min [facility] 03-09-2023 09:43-0500 Respiratory rate 20 /min [facility] 03-09-2023 09:43-0500 SaO2% (BldA) [Mass fraction] 91 % [facility] 03-09-2023 09:43-0500 Systolic blood pressure 134 mm[Hg] [facility] 06-16-2022 17:31-0400 Diastolic blood pressure 96 mm[Hg] [facility] 06-16-2022 17:31-0400 Heart rate 77 /min [facility] 06-16-2022 17:31-0400 Respiratory rate 20 /min [facility] 06-16-2022 17:31-0400 SaO2% (BldA) [Mass fraction] 95 % [facility] 06-16-2022 17:31-0400 Systolic blood pressure 142 mm[Hg] [facility] 06-16-2022 13:39-0400 Body height 175.26 cm [facility] 06-16-2022 13:39-0400 Body mass index (BMI) [Ratio] 36.1 kg/m2 [facility] 06-16-2022 13:39-0400 Body temperature 97.2 [degF] [facility] 06-16-2022 13:39-0400 Body weight 111.13 kg [facility] 04-16-2022 12:19-0500 Heart rate 67 /min [facility] 04-16-2022 12:19-0500 Respiratory rate 18 /min [facility] 04-16-2022 12:19-0500 SaO2% (BldA) [Mass fraction] 100 % [facility] 04-16-2022 11:38-0500 Diastolic blood pressure 86 mm[Hg] [facility] 04-16-2022 11:38-0500 Systolic blood pressure 111 mm[Hg] [facility] 04-16-2022 10:19-0500 Body height 175.26 cm [facility] 04-16-2022 10:19-0500 Body mass index (BMI) [Ratio] 34.7 kg/m2 [facility] 04-16-2022 10:19-0500 Body temperature 96.6 [degF] [facility] 04-16-2022 10:19-0500 Body weight 106.59 kg [facility] 06-25-2021 11:17-0400 Diastolic blood pressure 91 mm[Hg] [facility] Work Phone: 06-25-2021 11:17-0400 Heart rate 56 /min [facility] Work Phone: 06-25-2021 11:17-0400 Respiratory rate 16 /min [facility] Work Phone: 06-25-2021 11:17-0400 SaO2% (BldA) [Mass fraction] 95 % [facility] Work Phone: 06-25-2021 11:17-040 Systolic blood pressure 134 mm[Hg] [facility] Work Phone: 06-25-2021 07:25-0400 Body height 175.26 cm [facility] Work Phone: 06-25-2021 07:25-0400 Body mass index (BMI) [Ratio] 34.7 kg/m2 [facility] Work Phone: 06-25-2021 07:25-040 Body temperature 97.9 [degF] [facility] Work Phone: 06-25-2021 07:25-0400 Body weight 106.59 kg [facility] Work Phone: Encounters Encounter Date Encounter Type Care Provider Facility Start: 08-23-2024 Patient encounter status [facility] Comment on above: Prostate surgery Sep Start: 08-23-2024 End: 08-23-2024 Patient encounter procedure Michelle WHITESIDE -[facility] Work Phone: Start: 08-23-2024 End: 08-23-2024 [facility] Work Phone: Start: 04-12-2024 [facility] Facility:[facility] Start: 03-07-2024 End: 03-07-2024 Emergency department patient visit Daniel Coffey Facility:[facility] Start: 10-17-2023 End: 10-17-2023 ambulatory [facility] Facility:[facility] Start: 10-05-2023 ambulatory [facility] Facility:[facility] Start: 09-09-2023 End: 09-09-2023 Emergency department patient visit [facility] Facility:[facility] Start: 08-30-2023 End: 09-24-2023 ambulatory [facility] Facility:[facility] Start: 08-30-2023 End: 08-30-2023 ambulatory [facility] Facility:[facility] Start: 07-26-2023 Registered Rec[facility]ring [facility] Work Phone: Start: 07-24-2023 End: 07-24-2023 Patient encounter procedure [facility] Work Phone: Start: 07-24-2023 End: 07-25-2023 ambulatory [facility] Work Phone: Start: 07-24-2023 End: 07-25-2023 Discharged Recurring [facility] Work Phone: Start: 07-24-2023 End: 07-24-2023 Patient encounter procedure [facility] Work Phone: Start: 07-20-2023 Admission to [facility] Darion Lopes HIGH RISK OB - ROTARY DRILL OPERATOR Work Phone: [facility] Start: 07-20-2023 End: 07-20-2023 ambulatory Darion Lopes HIGH RISK OB - ROTARY DRILL OPERATOR Work Phone: [facility] Start: 07-20-2023 End: 07-20-2023 Postop follow up visit related to original px Darion Lopes HIGH RISK OB - ROTARY DRILL OPERATOR Work Phone: [facility] Comment on above: S/P CABG (coronary a rtery bypass graft) (Primary Dx) Start: 07-17-2023 End: 07-17-2023 ambulatory [facility] Work Phone: Start: 07-17-2023 End: 07-17-2023 Patient encounter procedure [facility] Work Phone: Start: 07-11-2023 Telephone encounter Karen Lynn RN [facility] Comment on above: Post-op Problem Start: 07-10-2023 Registered Recurring [facility] Work Phone: Start: 07-06-2023 End: 07-06-2023 Postop follow up visit related to original px Darion Lopes HIGH RISK OB - ROTARY DRILL OPERATOR Work Phone: [facility] Comment on above: S/P CABG (coronary a rtery bypass graft) (Primary Dx) Start: 07-06-2023 End: 07-06-2023 ambulatory [facility] Start: 07-05-2023 Registered Recurring [facility] Work Phone: Start: 07-03-2023 End: 07-03-2023 ambulatory [facility] Work Phone: Start: 07-03-2023 End: 07-03-2023 Patient encounter procedure [facility] Work Phone: Start: 06-28-2023 Telephone encounter Jean Rdz HIGH RISK OB - ROTARY DRILL OPERATOR Work Phone: [facility] Comment on above: Post-op Follow-up; P ost-op Problem Start: 06-27-2023 Telephone encounter Gisella cespedes MD Work Phone: [facility] Comment on above: leg pain Start: 06-20-2023 End: 06-20-2023 Patient encounter procedure [facility] Work Phone: Start: 06-14-2023 End: 06-14-2023 ambulatory [facility] Start: 06-14-2023 End: 06-14-2023 Postop follow up visit related to original px Darion Lopes HIGH RISK OB - ROTARY DRILL OPERATOR Work Phone: [facility] Comment on above: S/P CABG (coronary a rtery bypass graft) (Primary Dx); CAD, multiple vessel Start: 06-09-2023 Telephone encounter Gisella cespedes MD Work Phone: [facility] Comment on above: post op pain Start: 06-07-2023 ambulatory NONE PHYSICIAN Facility :R Start: 06-06-2023 Orders Only Jean mccullough HIGH RISK OB - ROTARY DRILL OPERATOR Work Phone: [facility] Comment on above: Retention of urine ( Primary Dx) Start: 05-31-2023 End: 06-06-2023 Encounter for other preprocedural examination GISELLAISABEL HUANG [facility] Start: 05-31-2023 End: 06-06-2023 Evaluation and management of inpatient CRISSY ENGLE [facility] Start: 05-31-2023 End: 06-06-2023 Evaluation and management of inpatient Gisella Huang MD Work Phone: [facility] Card[facility] Thoracic [facility] Unit CTV ICU T1 Comment on above: 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, unspecified vessel or lesion type (HCC) (Primary Dx); Preoperative clearance; S/P CABG (coronary artery bypass graft) Start: 05-31-2023 End: 06-06-2023 Preoperative state Gisella Huang MD Work Phone: [facility] [employer] Work Phone: Start: 05-31-2023 End: 05-31-2023 ambulatory [facility] Start: 05-31-2023 End: 05-31-2023 Office consultation new/estab patient 80 min Gisella Huang MD Work Phone: [facility] Comment on above: CAD, multiple vessel (Primary Dx); Unstable angina (CMS/HCC) (HCC) Start: 05-19-2023 Non-patient / Non-visit [facility] Start: 05-19-2023 End: 05-19-2023 Admission to same day surgery center [facility]-Labor And Employment Paralegal/Special Procedures Work Phone: Start: 05-19-2023 End: 05-19-2023 ambulatory [facility] Work Phone: Start: 05-09-2023 Non-patient / Non-visit [facility] Start: 04-07-2023 Non-patient / Non-visit [facility] Start: 04-07-2023 End: 04-07-2023 ambulatory [facility] Work Phone: Start: 04-07-2023 End: 04-07-2023 Patient encounter procedure [facility]Cardi[facility] Services Work Phone: Start: 03-09-2023 End: 03-09-2023 Patient encounter procedure [facility] Work Phone: Start: 06-16-2022 End: 06-16-2022 Emergency department patient visit [facility] Start: 04-16-2022 End: 04-16-2022 Emergency department patient visit [facility] Start: 06-25-2021 End: 06-25-2021 Emergency department patient visit [facility]gency [facility] Start: 07-18-2018 Patient encounter procedure Facility:UNKNOWN Procedures Date Procedure Procedure Detail Performing Clinician Start: 07-17-2023 Anaerobic microbial culture [facility] Start: 07-17-2023 Investigation of transfusion reaction [facility] Start: 07-17-2023 Microbial culture, routine [facility] Start: 07-04-2023 History of coronary artery bypass grafting S/P CABG (coronary artery bypass graft) Darion Bhat CNP Work Phone: Start: 06-06-2023 Radiologic exam ches t single view Darion Bhat CNP Work Phone: Start: 06-06-2023 Basic metabolic pane l calcium total Darion Bhat CNP Work Phone: Start: 06-05-2023 Urnls dip stick/tabl et reagent auto microscopy Lake Garza MD Work Phone: Start: 06-05-2023 Basic metabolic pane l calcium total Darion Bhat CNP Work Phone: Start: 06-05-2023 Radiologic exam ches t single view Darion Bhat CNP Work Phone: Start: 06-04-2023 Radiologic exam ches t single view Darion Bhat CNP Work Phone: Start: 06-04-2023 Compatibility each u nit electronic Darion Lopes JOSE DANIEL - ROTARY DRILL OPERATOR Work Phone: Start: 06-04-2023 End: 06-04-2023 Basic metabolic panel calcium total Draion Lopes JOSE DANIEL - ROTARY DRILL OPERATOR Work Phone: Start: 06-03-2023 Glucose quantitative blood xcpt reagent strip Gisella Huang MD Work Phone: Start: 06-03-2023 Ecg routine ecg w/le ast 12 lds trcg only w/o i&r Darion Askewdavis SKY - ROTARY DRILL OPERATOR Work Phone: Start: 06-03-2023 Radiologic exam ches t single view Darion Askewdavis SKY - ROTARY DRILL OPERATOR Work Phone: Start: 06-03-2023 Basic metabolic pane l calcium total Darion Askewdavis SKY - ROTARY DRILL OPERATOR Work Phone: Start: 06-02-2023 Glucose quantitative blood xcpt reagent strip Gisella Huang MD Work Phone: Start: 06-02-2023 Glucose quantitative blood xcpt reagent strip Gisella Huang MD Work Phone: Start: 06-02-2023 Ecg routine ecg w/le ast 12 lds trcg only w/o i&r Darion Lopes APRN - ROTARY DRILL OPERATOR Work Phone: Start: 06-02-2023 Glucose quantitative blood xcpt reagent strip Gisella Huang MD Work Phone: Start: 06-02-2023 Radiologic exam ches t single view Dariongabby Lopes APRN - ROTARY DRILL OPERATOR Work Phone: Start: 06-02-2023 Glucose quantitative blood xcpt reagent strip Gisella Huang MD Work Phone: Start: 06-02-2023 End: 06-02-2023 Calcium ionized Darion Askewdavis SKY - ROTARY DRILL OPERATOR Work Phone: Start: 06-02-2023 Basic metabolic pane l calcium total Darion Marianne SKY - ROTARY DRILL OPERATOR Work Phone: Start: 06-01-2023 End: 06-01-2023 Glucose quantitative blood xcpt reagent strip Gisella Huang MD Work Phone: Start: 06-01-2023 Glucose quantitative blood xcpt reagent strip Gisella Huang MD Work Phone: Start: 06-01-2023 End: 06-01-2023 Glucose quantitative blood xcpt reagent strip Gisella Huang MD Work Phone: Start: 06-01-2023 End: 06-01-2023 Glucose quantitative blood xcpt reagent strip Gisella Huang MD Work Phone: Start: 06-01-2023 Glucose quantitative blood xcpt reagent strip Gisella Huang MD Work Phone: Start: 06-01-2023 Echo transesophag r- t 2d w/prb img acquisj i&r Darion Lopes APRN - ROTARY DRILL OPERATOR Work Phone: Start: 06-01-2023 Radiologic exam ches t single view Darion Lopes APRN - ROTARY DRILL OPERATOR Work Phone: Start: 06-01-2023 History of coronary artery bypass grafting S/P CABG x 5 Michelle WHITESIDE Comment on above: Left internal mammar y artery to the left anterior descending; Free left radial artery graft to the second obtuse marginal; Saphenous vein graft to the right posterior descending artery;Saphenous vein graft to the first diagonal;Saphenous vein graft to the second diagonal Start: 06-01-2023 Ecg routine ecg w/le ast 12 lds trcg only w/o i&r Darion Lopes APRN - ROTARY DRILL OPERATOR Work Phone: Start: 06-01-2023 End: 06-01-2023 Basic metabolic panel calcium total Gisella Huang MD Work Phone: Start: 06-01-2023 Blood gases any combination ph pco2 po2 co2 hco3 Gisella Huang MD Work Phone: Start: 06-01-2023 End: 06-01-2023 Cabg w/arterial graft three arterial grafts Gisella Huang MD Work Phone: Start: 06-01-2023 End: 06-01-2023 Echo transesophag r-t 2d w/prb img acquisj i&r Gisella Huang MD Work Phone: Start: 06-01-2023 Ecg routine ecg w/le ast 12 lds trcg only w/o i&r Gisella Huang MD Work Phone: Start: 05-31-2023 Thromboplastin time partial plasma/whole blood Darion Bhat CNP Work Phone: Start: 05-31-2023 Antibody screen GISELLA HINES Comment on above: Performed By: #### L [id number] ####Line Manager: ALONZO ALMODOVAR ([phone])[facility] BLOOD [facility] [place] [address] Start: 05-31-2023 ABO and Rh group [Ty pe] in Blood by Confirmatory method Myrtle Bhat ROTARY DRILL OPERATOR Work Phone: Start: 05-31-2023 Assay of troponin quantitative Darion Bhat CNP Work Phone: Start: 05-31-2023 Blood typing serologic abo Myrtle Maier APRN - ROTARY DRILL OPERATOR Work Phone: Start: 05-31-2023 Ct thorax w/o contra st material Darion Bhat CNP Work Phone: Start: 05-31-2023 Ecg routine ecg w/le ast 12 lds trcg only w/o i&r Darion Bhat CNP Work Phone: Start: 05-31-2023 Iadna s aureus methi cillin resist amp probe tq Darion Bhat CNP Work Phone: Start: 05-31-2023 Non-invas physiologi c std extremity art 2 level Darion Bhta CNP Work Phone: Start: 05-31-2023 End: 03-06-2024 Comprehensive metabolic panel Darion Bhat CNP Work Phone: Start: 05-17-2023 Plain chest X-ray [facility] Start: 06-16-2022 Plain chest X-ray Start: 04-16-2022 Plain chest X-ray Start: 06-25-2021 CT angiography of he ad and neck Start: 06-25-2021 CT of head without contrast Start: 06-25-2021 Plain chest X-ray History of coronary artery bypass grafting S/P CABG (coronary artery bypass graft) Gisella Huang MD Work Phone: History of coronary artery bypass grafting S/P CABG (coronary artery bypass graft) Darion Lopes APRN - ROTARY DRILL OPERATOR Work Phone: History of coronary artery bypass grafting S/P CABG (coronary artery bypass graft) Darion Lopes APRN - ROTARY DRILL OPERATOR Work Phone: History of coronary artery bypass grafting S/P CABG x [facility] History of coronary artery bypass grafting S/P CABG (coronary artery bypass graft) Darion Lopes APRN - ROTARY DRILL OPERATOR Work Phone: SARS-CoV-2 & FLU Ant igen (Rapid) SARS-CoV-2 & FLU Ant igen (Rapid) Plan of Treatment Date Care Activity Detail Author Start: 09-29-2027 DTaP/Tdap/Td Vaccines (2 - Td or Tdap) DTaP/Tdap/Td Vaccines (2 - Td or Tdap) [facility] Start: 05-30-2024 Diabetes mellitus screening Diabetes Screening [facility] Start: 05-30-2024 Screening for malignant neoplasm of lung Lung Cancer Screening [facility] Start: 11-26-2023 Influenza vaccination Influenza Vaccine (Season Ended) [facility] Start: 07-06-2023 End: 07-06-2023 Telemedicine consultation with patient 07/06/2023 2:30 PM EDT Telemedicine [facility] Thor[facility] [address] [place] [address] Darion Lopes APRN - CNP [address] [place] [address] [facility] Start: 07-03-2023 Patient referral to dietitian [facility] Start: 06-20-2023 Patient referral [facility] Work Phone: Start: 06-14-2023 End: 06-14-2023 Patient encounter procedure 06/14/2023 10:30 AM EDT Office Visit [facility] [address] [place] [address] Darion Lopes, HIGH RISK OB - ROTARY DRILL OPERATOR [address] [place] [address] [facility] Start: 06-01-2023 End: 06-01-2023 Anesthesia consultation 06/01/2023 7:30 AM EST Anesthesia Event [facility] MA[facility] OR [address] [facility] [place] [id number] Gertrudis Fritz, HIGH RISK OB - GROUNDS MANAGER [address] [place] [address] [facility] Start: 06-01-2023 End: 06-01-2023 Cabg w/arterial graft three arterial grafts CORONARY ARTERY BYPASS GRAFT X3 ARTERIAL GRAFTS Atherosclerotic heart disease of [place] coronary artery without angina pectoris 06/01/2023 7:30 AM EST [facility] Operating Room Start: 06-01-2023 End: 06-01-2023 Echo transesophag r-t 2d w/prb img acquisj i&r Echocardiography transesophageal real-time Atherosclerotic heart disease of [place] coronary artery without angina pectoris 06/01/2023 7:30 AM EST [facility] Start: 06-01-2023 End: 06-01-2023 Evaluation and management of inpatient 06/01/2023 7:30 AM EST - 06/01/2023 12:30 PM EST Surgery [facility] MA[facility] OR [address] [facility] [place] [address] Gisella Huang MD [address] [place] [address] CORONARY ARTERY BYPASS GRAFT, TRANSESOPHAGEAL ECHOCARDIOGRAM [14988 (CPT )] [facility] Comment on above: CORONARY ARTERY BYPASS GRAFT, TRANSESOPH AGEAL ECHOCARDIOGRAM [23015 (CPT )] Start: 05-19-2023 Patient referral [facility] Work Phone: Start: 05-19-2023 Patient discharge [facility] Start: 11-25-2022 COVID-19 Vaccine ( season) COVID-19 Vaccine ( season) [facility] Start: 11-25-2022 Influenza vaccination Influenza Vaccine (#1) [facility] Start: 06-16-2022 [facility] Start: 04-16-2022 [facility] Start: 2019 RSV Immunization aged 60 or older (1 - 1-dose 60+ series) RSV Immunization aged 60 or older (1 - 1-dose 60+ series) [facility] Start: 10-06-2009 Screening for malignant neoplasm of lung Lung Cancer Screening [facility] Start: 10-06-2009 Zoster Vaccines (1 of 2) Zoster Vaccines (1 of 2) [facility] Start: 10-06-1978 Hepatitis A Vaccines (1 of 2 - Risk 2-dose series) Hepatitis A Vaccines (1 of 2 - Risk 2-dose series) [facility] Start: 10-06-1977 Hepatitis C screening Hepatitis C Screening [facility] Start: 1971 Depression Screening Depression Screening [facility] Start: 10-06-1965 Pneumococcal Vaccine: Pediatrics (0 to 5 Years) and At-Risk Patients (6 to 64 Years) (1 of 2 - PCV) Pneumococcal Vaccine: Pediatrics (0 to 5 Years) and At-Risk Patients (6 to 64 Years) (1 of 2 - PCV) [facility] Start: 10-06-1960 MMR Vaccines (1 of 1 - Standard series) MMR Vaccines (1 of 1 - Standard series) [facility] Start: 04-08-1960 COVID-19 Vaccine (#1) COVID-19 Vaccine (#1) [facility] Start: 1959 HIV screening HIV Screening [facility] Start: 1959 Lipid panel Lipid Panel [facility] Start: 1959 Screening for malignant neoplasm of colon [facility] Patient Education [facility] Work Phone: Patient referral [facility] Work Phone: Immunizations Immunization Date Immunization Notes Care Provider Karime magana 09-28-2017 tetanus toxoid, redu caren diphtheria toxoid, and acellular pertussis vaccine, adsorbed [facility] 12-24-2015 influenza virus vaccine, unspecified formulation Gisella Huang MD Work Phone: [facility] Payers Date Payer Category Payer Self-pay [id number] 2023 Unknown [id number] 2023 Unknown [id number] 2013 Unknown [id number] 1959 Unknown [id number] 2.16.8 [id number] 1959 Unknown [id number] 2.16.8 [id number] Unknown [id number] Unknown [id number] Unknown [id number] 2.16.8 [id number] Unknown [id number] 2.16.8 [id number] Unknown [id number] 2.16.8 [id number] Unknown [id number] 2.16.8 [id number] Unknown [id number] 2.16.8 [id number] Unknown [id number] 2.16.8 [id number] Unknown [id number] 2.16.8 [id number] Unknown [id number] 2.16.8 [id number] Social History Date Type Detail Facility Start: 06-25-2021 End: 07-03-2023 Tobacco smoking status MDIS Unknown if ever smoked [facility] Start: 11-01-2019 Occasional [facility] Start: 11-01-2019 None [facility] Start: 1960 Sex Assigned At Male [facility] Start: 05-31-2023 End: 03-07-2024 Tobacco smoking status MDIS Ex-smoker [facility] End: 03-27-2014 History of tobacco use Current smoker [facility] End: 03-27-2014 History of tobacco use Cigarette Smoker [facility] Start: 05-31-2023 End: 06-06-2023 Cigarettes smoked current (pack per day) - Reported 1.5 [facility] Start: 05-31-2023 Tobacco use and exposure Smoke less tobacco non-user [facility] Start: 05-31-2023 End: 07-20-2023 Alcohol intake Current drinker of alcohol (finding) [facility] Start: 05-31-2023 End: 06-06-2023 Humiliation, Afraid, Rape, and Kick questionnaire [HARK] [facility] Within the last year , have you been afraid of your partner or ex-partner? No [facility] How often to you hav e a drink containing alcohol? 2-3 time sa week [facility] How many standard dr inks containing alcohol do you have on a typical day? 1 or 2 [facility] How often do you hav e 6 or more drinks on 1 occasion? Never [facility] Start: 1960 Sex Assigned At Not on file S [employer] Has the [employer], [employer], or water [employer] threatened to shut off services in your home in past 12Mo Patient declined [facility] Medical Equipment Procedure Code Equipment Code Equipment Origin al Text Equipment Identifier Dates 0.01-0.2 mcg/kg/ min 108 kg (1.0125-20.25 mL/hr, rounded to 1.01-20.25 mL/hr), IntraVENous, Continuous PRN, Initiate if Cardiac Index above 2.0; SBP less than 90 mmHg or MAP less than 65 mmHg; and PAD above 18, Starting on Clara 06/01/23 at 1328, Recovery & On Unit, Infuse via central line. If Titrate Infusion? is No: Disregard instructions below. If Titrate infusion? is Yes: Titrate in increments of 0.02 mcg/kg/min no faster than every 5 minutes to goal. When approaching therapeutic goal or weaning off, smaller titration increments of 0.01 mcg/kg/min no faster than every 5 minutes may be used to maintain goal. , Goal Maintain SBP greater than 90 and less than 130 Goal Maintain MAP greater than 65 and less than 80, Titrate Infusion: Yes, Infusion Dose: Other, Infusion Dose: 0.01 mcg/kg/min, Goal of Therapy is: MAP great than 65 mmHg, SBP greater than 90 mmHg, Contact Provider if: Patient is receiving the maximum dose and is not achieving the goal of therapy [id number] Start: 06-01-2023 End: 06-02-2023 Mental Status Date Assessment Result Facility 06-16-2022 Cognitive function Voice/Name [facility] Work Phone: 04-16-2022 Cognitive function Level Of Cons ciousness Awake;Alert;Appropriate;Follow s Commands [facility] Work Phone: 06-25-2021 Cognitive function Level Of Cons ciousness Awake;Alert;Appropriate;Follow s Commands [facility] Work Phone: Clinical Notes 06-16-2022 to 07-20-2023 JOSE DANIEL Sultana CNP - 07/20/2023 9:00 AM EDTPatient InstructionsTelephone Encounter - Marie Mckee - 07/11/2023 3:47 PM EDTTelephone Encounter - Marie Mckee - 07/11/2023 3:47 PM EDT Note Date & Type Note Facility 07-20-2023 History of Presen t illness Narrative Images from the original note were not included. [facility] Group: [facility] [address] [facility] [address] Dept: [phone] Dept Loc: [phone] Visit type: Established patient - in person Surgery/Procedure: 05/31/23: CABGx5 (CAMPBELL to LAD, Free left radial to OM2, SVG to right pDA, SVG to Diag1, SVG to Diag2) left radial harvest R leg EVH and PAM with Dr. 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 -Physical therapy as outlined in discharge instructions: ok to drive ok for cardiac rehab -Acute Post-Operative Pain Tx plan: OTC as needed Weight restriction measures 5-8 weeks from date of surgery- 20lbs weight restriction approximate end date: 07/26/23 [facility] Follow up as needed or if concerns arise Treatment Team: PCP: Crissy Engle DO Cardiology: Dr. Gaines [facility] Subjective HPI: 62 y.o. 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 Pmhx including RCA and PDA stents in 2008, HTN, Hx of NSVT, Hx of PE, former tobacco use and current ETOH use. He was see in OP setting 05/31/23 and noted to have unstable angina with palpitations and he was direct admitted for urgent CABG. Preoperative testing was completed and he consented to surgical revascularization. Of note patient lives alone at home. 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 Patient underwent surgery on 06/01/23. Patient did well post-op, only complication was urinary retention for which a isaac was re-placed and Urology consulted. A referral was placed to Urology in [place] for him to follow up with. He was discharged home on POD#05. 06/14/23: Patient presents today for postop open heart follow-up. He is doing well postoperatively has been walking multiple times a day following midsternal precautions. He does want to drive (discussed with surgeon), recommended not driving until 3 weeks from surgery. Risks discussed with driving earlier. Patient verbalized understanding. Surgical incisions healing appropriate no signs of infection or drainage noted. Patient still has Isaac catheter noted dark urine yesterday has cleared since has follow-up scheduled with urology due to urinary retention July 14 through the [place]. Patient would like to establish with Dr. Gaines at [facility] will forward appropriate documents to his office after this visit. Pain is controlled no other needs at this time patient to call with any question concerns we will plan virtual visit in 3 weeks. 07/06/23: Called patient for postop follow-up. He is doing relatively well has had follow-up with urology and cardiology. Urology pulled isaac but the patient is still straight cathing 3 times a day. He is also taking his Flomax which she does not think is working. Stated that urology might put him on a different medication. Care of Isaac per urology. He is followed up with cardiology no changes to medications. He is taking all medications as prescribed. Incisions are healing appropriately no signs of infection. Does have some numbness in his left chest wall area which I explained to him is likely related to CAMPBELL harvest or retractors used during case. Numbness is improving and EVH site can take up to 3 months to go away patient did admit to not following midsternal precautions completely as he was out taking a blueberry lott up the other day. Explained risks involved and not following midsternal precautions he verbalized understanding. No other needs at this time he will call with any questions or concerns no scheduled follow-up needed will follow-up as needed 07/11/23: Seen by Ron - started on Abx due to ?sternal infection - opening at top of incision. Patient also noticing Popping in chest - inperson visit made 07/20/23: Patient presents today for postop follow-up. Had called in with complaints of sternal popping pain and open midsternal incision. Per patient cardiology placed on 10-day course of antibiotics and sent cultures. He will finish 10-day course of antibiotics tomorrow. Sternal clicking/popping that he had previously described has not happened in some time. He has no pain currently right now. Incision assessed palpated no pain with palpitation sternum does not feel dislodged. Discussed midsternal precautions weight restrictions. Patient admits to not following midsternal precautions completely at times. Stressed the importance of weight restrictions physical therapy. He verbalized understanding. Okay for patient to resume cardiac rehab. Discussed treatment options we will hold off on any diagnostic imaging at this time as pain/popping/clicking is not replicated with palpation of chest. He is agreeable to plan and will call with any concerns or new signs or symptoms. CTS will plan to follow-up as needed instructed patient to follow-up with PCP and cardiology. Review of Systems Constitutional: Negative for diaphoresis, fatigue and fever. Respiratory: Negative for cough, shortness of breath and wheezing. Cardiovascular: Negative for chest pain, palpitations and leg swelling. Gastrointestinal: Negative for abdominal distention, constipation and diarrhea. Skin: Negative for color change, pallor and rash. Objective Vitals: 07/20/23 0858 BP: (!) 143/93 Pulse: 66 Wt Readings from Last 3 Encounters: 07/20/23 237 lb (108 kg) 06/14/23 230 lb (104 kg) 06/06/23 233 lb 7.5 oz (106 kg) Physical Exam Cardiovascular: Rate and Rhythm: Normal rate and regular rhythm. Heart sounds: Normal heart sounds. Pulmonary: Effort: Pulmonary effort is normal. Breath sounds: Normal breath sounds. Abdominal: General: Bowel sounds are normal. Palpations: Abdomen is soft. There is no mass. Tenderness: There is no abdominal tenderness. Hernia: No hernia is present. Skin: General: Skin is warm and dry. Comments: Surgical Incisions: well approximate; clean dry with no drainage noted. Surrounding skin no redness, warmth, or signs of infection noted. Neurological: Mental Status: He is alert and oriented to person, place, and time. [facility] 07/20/23 Labs/Imaging/Testing: reviewed EMR, see A&P for pertinent diagnostic results related to office visit Disclaimer INFORMED CONSENT:The nature and purpose of the proposed treatment or procedure have been discussed. The risks and benefits of the proposed treatment or procedures have been reviewed. Alternatives have been reviewed in addition to the risks and benefits of not receiving treatments or undergoing procedures. Pursuant to this discussion, the patient agrees to undergo the proposed treatment or procedure. Captured images seen in this note from are not a substitute for a comprehensive interpretation of the entire data set as reflected by the interpreting physician with regard to radiology, echocardiography, and other diagnostic images. This note may have been dictated using babbel Medical Practice Edition 2.6 and/or EverTune Voice Recognition Feature. The document was proofread, however unrecognized voice recognition primary special education teacher errors may be present. documented in this encounter [facility] 07-20-2023 Instructions JOSE DANIEL Sultana CNP - 07/20/2023 9:00 AM EDT Weight restriction measures 5-8 weeks from date of surgery- 20lbs weight restriction approximate end date: 07/26/23 documented in this encounter [facility] 07-11-2023 Telephone encounter Note LVM to schedule appointment. [facility] 07-11-2023 Miscellaneous Notes LVM to schedule appointment. Can you schedule inperson visit with me next week. Thanks Pt called and stated he saw Cardiology at [place] who noticed an opening at the top of pt sternum. There was concern for infection so pt was put on antibiotics. He also states that he feels a popping in his chest when he moves his hips. He denies any pain. Please advise. 05/31/23: CABGx5 (CAMPBELL to LAD, Free left radial to OM2, SVG to right pDA, SVG to Diag1, SVG to Diag2) left radial harvest R leg EVH and PAM with LILLIAN Rubio Note 07/06/23: Called patient for postop follow-up. He is doing relatively well has had follow-up with urology and cardiology. Urology pulled isaac but the patient is still straight cathing 3 times a day. He is also taking his Flomax which she does not think is working. Stated that urology might put him on a different medication. Care of Isaac per urology. He is followed up with cardiology no changes to medications. He is taking all medications as prescribed. Incisions are healing appropriately no signs of infection. Does have some numbness in his left chest wall area which I explained to him is likely related to CAMPBELL harvest or retractors used during case. Numbness is improving and EVH site can take up to 3 months to go away patient did admit to not following midsternal precautions completely as he was out taking a blueberry lott up the other day. Explained risks involved and not following midsternal precautions he verbalized understanding. No other needs at this time he will call with any questions or concerns no scheduled follow-up needed will follow-up as needed documented in this encounter [facility] 07-11-2023 Telephone encounter Note Can you schedule inperson visit with me next week. Thanks [facility] 07-11-2023 Telephone encounter Note Pt called and stated he saw Cardiology at [place] who noticed an opening at the top of pt sternum. There was concern for infection so pt was put on antibiotics. He also states that he feels a popping in his chest when he moves his hips. He denies any pain. Please advise. 05/31/23: CABGx5 (CAMPBELL to LAD, Free left radial to OM2, SVG to right pDA, SVG to Diag1, SVG to Diag2) left radial harvest R leg EVH and PAM with Dr. 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 He is doing relatively well has had follow-up with urology and cardiology. Urology pulled isaac but the patient is still straight cathing 3 times a day. He is also taking his Flomax which she does not think is working. Stated that urology might put him on a different medication. Care of Isaac per urology. He is followed up with cardiology no changes to medications. He is taking all medications as prescribed. Incisions are healing appropriately no signs of infection. Does have some numbness in his left chest wall area which I explained to him is likely related to CAMPBELL harvest or retractors used during case. Numbness is improving and EVH site can take up to 3 months to go away patient did admit to not following midsternal precautions completely as he was out taking a blueberry lott up the other day. Explained risks involved and not following midsternal precautions he verbalized understanding. No other needs at this time he will call with any questions or concerns no scheduled follow-up needed will follow-up as needed [facility] 07-06-2023 History of Presen t illness Narrative Images from the original note were not included. [facility] Medical Group: [facility] [place] [address] [facility] [address] Dept: [phone] Dept Loc: [phone] Visit type: Established patient - Virtual Surgery/Procedure: 05/31/23: CABGx5 (CAMPBELL to LAD, Free left radial to OM2, SVG to right pDA, SVG to Diag1, SVG to Diag2) left radial harvest R leg EVH and PAM with Dr. 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 -Surgical Incisions: Per patient healing appropriately, well approximated, no s/s of infection -Physical therapy as outlined in discharge instructions: driving, starts cardiac rehab soon -Acute Post-Operative Pain Tx plan: OTC as needed -Wires Only Weight restriction measures 5-8 weeks from date of surgery- 20lbs weight restriction approximate end date: 07/26/23 Disposition: As needed Patient verbalized understanding of plan and stated they would call if any questions or concerns arise. Treatment Team: PCP: Crissy Engle DO Cardiology: Dr. Gaines [place]: [place] Patient was seen today via Telehealth by agreement and consent. I used the following Telehealth technology: Audio capability only. Total length of call 14 minutes. The patient was offered and advised video for a more comprehensive evaluation, but the patient declined or was unable to use video. Patient location: Patient Location: Home. This patient encounter is appropriate and reasonable under the circumstances: patient request . The patient has been advised of the potential risks and limitations of this mode of treatment (including but not limited to the absence of in-person examination) and has agreed to be treated in a remote fashion in spite of them. Any and all of the patient's/patient's family's questions on this issue have been answered and I have made no promises or guarantees to the patient. The patient has also been advised to contact this office for worsening conditions or problems, and seek emergency medical treatment and/or call 911 if the patient deems either necessary. The patient stated that they are currently in the [facility]. If the patient is a minor, permission has been obtained by the parent or guardian for the patient to receive medical care at this visit. Patient identification was verified at the start of the visit: yes Total time spent on this encounter: 19 Subjective HPI: 62 y.o. 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 Pmhx including RCA and PDA stents in 2008, HTN, Hx of NSVT, Hx of PE, former tobacco use and current ETOH use. He was see in OP setting 05/31/23 and noted to have unstable angina with palpitations and he was direct admitted for urgent CABG. Preoperative testing was completed and he consented to surgical revascularization. Of note patient lives alone at home. 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 Patient underwent surgery on 06/01/23. Patient did well post-op, only complication was urinary retention for which a isaac was re-placed and Urology consulted. A referral was placed to Urology in [place] for him to follow up with. He was discharged home on POD#05. 06/14/23: Patient presents today for postop open heart follow-up. He is doing well postoperatively has been walking multiple times a day following midsternal precautions. He does want to drive (discussed with surgeon), recommended not driving until 3 weeks from surgery. Risks discussed with driving earlier. Patient verbalized understanding. Surgical incisions healing appropriate no signs of infection or drainage noted. Patient still has Isaac catheter noted dark urine yesterday has cleared since has follow-up scheduled with urology due to urinary retention July 14 through the [place]. Patient would like to establish with Dr. Gaines at [facility] will forward appropriate documents to his office after this visit. Pain is controlled no other needs at this time patient to call with any question concerns we will plan virtual visit in 3 weeks. 07/06/23: Called patient for postop follow-up. He is doing relatively well has had follow-up with urology and cardiology. Urology pulled isaac but the patient is still straight cathing 3 times a day. He is also taking his Flomax which she does not think is working. Stated that urology might put him on a different medication. Care of Isaac per urology. He is followed up with cardiology no changes to medications. He is taking all medications as prescribed. Incisions are healing appropriately no signs of infection. Does have some numbness in his left chest wall area which I explained to him is likely related to CAMPBELL harvest or retractors used during case. Numbness is improving and EVH site can take up to 3 months to go away patient did admit to not following midsternal precautions completely as he was out taking a blueberry lott up the other day. Explained risks involved and not following midsternal precautions he verbalized understanding. No other needs at this time he will call with any questions or concerns no scheduled follow-up needed will follow-up as needed Review of Systems Constitutional: Negative for diaphoresis, fatigue and fever. Respiratory: Positive for chest tightness (streching feeling with moving certain ways). Negative for cough, shortness of breath and wheezing. Cardiovascular: Negative for chest pain, palpitations and leg swelling. Gastrointestinal: Negative for abdominal distention, constipation and diarrhea. Skin: Negative for color change, pallor and rash. Neurological: Positive for numbness ([facility] site). Objective Patient reported: none noted Wt Readings from Last 3 Encounters: 06/14/23 230 lb (104 kg) 06/06/23 233 lb 7.5 oz (106 kg) 05/31/23 245 lb (111 kg) Physical exam deferred due to virtual visit-with audio (telephone) capabilities only Labs/Imaging/Testing: reviewed EMR, see A&P for pertinent diagnostic results related to office visit Disclaimer INFORMED CONSENT:The nature and purpose of the proposed treatment or procedure have been discussed. The risks and benefits of the proposed treatment or procedures have been reviewed. Alternatives have been reviewed in addition to the risks and benefits of not receiving treatments or undergoing procedures. Pursuant to this discussion, the patient agrees to undergo the proposed treatment or procedure. Captured images seen in this note from are not a substitute for a comprehensive interpretation of the entire data set as reflected by the interpreting physician with regard to radiology, echocardiography, and other diagnostic images. This note may have been dictated using babbel Medical Practice Edition 2.6 and/or EverTune Voice Recognition Feature. The document was proofread, however unrecognized voice recognition primary special education teacher errors may be present. documented in this encounter [facility] 06-28-2023 Telephone encounter Note Called patient, see telephone encounter. [facility] 06-28-2023 Miscellaneous Notes Called patient, see telephone encounter. Patient called in wanting a work release dated for MondayJuly 02 with no restrictions. Also would like message about leg pain addressed. In addition he is also c/o hand going numb and turning a white to blue color and this of concern to him if this could be addressed as well. Please call Pt states he is experiencing intermittent stabbing pain and continuous heaviness on his right outer thigh, on EVH leg. Pt is currently taking Tylenol 1000 mg BID, Motrin 800 mg BID, Motrin 1600 mg at bedtime. Pt states the pain is not managed. Pt denies any redness, swelling, or fevers. Pt also denies any sternum pain. Advised pt of post op pain management listed below. Pt verbalizes understanding. Pt states he feels the stabbing pain has gotten worse and more frequent in the past week. Please advise. 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 He is doing well postoperatively has been walking multiple times a day following midsternal precautions. He does want to drive (discussed with surgeon), recommended not driving until 3 weeks from surgery. Risks discussed with driving earlier. Patient verbalized understanding. Surgical incisions healing appropriate no signs of infection or drainage noted. Patient still has Isaac catheter noted dark urine yesterday has cleared since has follow-up scheduled with [facility] due [facility] Patient would like to establish with Dr. Gaines at [facility] will forward appropriate documents to his office after this visit. Pain is controlled no other needs at this time patient to call with any question concerns we will plan virtual visit in 3 weeks. Post-Operative Pain Management: Over The Counter-Tylenol (acetaminophen) 500 mg 1-2 tablets every 6 hours. No more than 4,000 mg in 24 hour period. Over The Counter-Motrin (ibuprofen) 200-400 mg by mouth every 4-6 hours (or) 600-800mg every 8 hours. No more than 3,200 mg per day. Over The Counter-pain patches (Salon pas) may be used as needed next to incision but not directly on your incision. Ice packs may be applied for 20 minutes, then off for at least 20 minutes before reapplying. Terry called in and is having some pain in his left hip to knee on the outside. Feels like it falls asleep and then had stabbing pain. Wakes him from his sleep. Please call him back to discuss. 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 Huang -Ibuprofen 800mg TID, recommend adding Robaxin 750mg TID PRN for muscle spasms/shooting pain in leg. -Pain in leg seems to be related to irritated/inflamed nerves. Unsure if related to EVH harvest or from positioning while in OR or in hospital or just from lower back tightness. -Numbness, tingling, cold, loss of color in hands sounds like Raynaud's syndrome. Difficult to assess over phone. Not related to arterial harvest. Recommend follow up with PCP. -OK to return to work, as long as he can delegate heavy lifting. Plan: POD#28 Day from Discharge (06/06/2023) #22 Weight restriction measures 1-4 weeks from date of surgery- 10lbs weight restriction: 06/28/23 5-8 weeks from date of surgery- 20lbs weight restriction approximate end date: 07/26/23 Disposition: Follow up phone call scheduled with CT Surgery on 07/06/23. Patient verbalized understanding of plan and stated they would call if any questions or concerns arise. Treatment Team: PCP: Crissy Engle DO Subjective HPI: 62 y.o. 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 Pmhx including RCA and PDA stents in 2008, HTN, Hx of NSVT, Hx of PE, former tobacco use and current ETOH use. He was see in OP setting 05/31/23 and noted to have unstable angina with palpitations and he was direct admitted for urgent CABG. Preoperative testing was completed and he consented to surgical revascularization. Of note patient lives alone at home. 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 Patient underwent surgery on 06/01/23. Patient did well post-op, only complication was urinary retention for which a isaac was re-placed and Urology consulted. A referral was placed to Urology in [place] for him to follow up with. He was discharged home on POD#05. 06/14/23: Patient presents today for postop open heart follow-up. He is doing well postoperatively has been walking multiple times a day following midsternal precautions. He does want to drive (discussed with surgeon), recommended not driving until 3 weeks from surgery. Risks discussed with driving earlier. Patient verbalized understanding. Surgical incisions healing appropriate no signs of infection or drainage noted. Patient still has Isaac catheter noted dark urine yesterday has cleared since has follow-up scheduled with urology due to urinary retention July 14 through the [place]. Patient would like to establish with Dr. Gaines at [facility] will forward appropriate documents to his office after this visit. Pain is controlled no other needs at this time patient to call with any question concerns we will plan virtual visit in 3 weeks. 06/28/23: Patient called in to office today with a couple of questions he wanted to discuss. He is experiencing numbness and tingling in his R leg, mostly in the anterior and lateral portion of his thigh. States it started when he was in the hospital. Possibly could be related to EVH harvest but typically when related to the EVH harvest, the numbness and tingling and pain is located around the sites on the medial portion of the leg, near incisions. States that sometimes he is awaken from sleep with a sharp shooting pain in this area. Seems to be improved with ibuprofen use. Otherwise post-op pain seems to be well controlled. He wants to stop taking acetaminophen. He has been experiencing intermittent sensation in bilateral hands, where his hands become numb, tingly and cold. States they also turn white and bluish. Sometimes happens only on one side or the other or both at the same time. Seems to happen more in his right hand (opposite radial harvest). Lastly, patient wanted to ask about returning to work. 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 Discussed with him weight restrictions and where he currently falls in recovery. Overall patient is healing and recovering well from surgery. No Known Allergies Outpatient Medications Prior to Visit Medication Sig Dispense Refill acetaminophen (Tylenol) 500 MG tablet Take 2 tablets (1,000 mg) by mouth in the morning and 2 tablets (1,000 mg) at noon and 2 tablets (1,000 mg) before bedtime. amLODIPine (Norvasc) 2.5 MG tablet Take 1 tablet (2.5 mg) by mouth daily. 30 tablet 0 aspirin 81 MG EC tablet Take 81 mg by mouth daily. carvedilol (Coreg) 12.5 MG tablet Take 1 tablet (12.5 mg) by mouth in the morning and 1 tablet (12.5 mg) in the evening. Take with meals. 60 tablet 2 cholecalciferol 25 MCG (1000 UT) capsule Take 25 mcg by mouth daily. ibuprofen 800 MG tablet Take 800 mg by mouth 3 times daily as needed for mild pain (1-3). Krill Oil 500 MG capsule Take 1 capsule by mouth daily. Multiple Vitamin (multivitamin) capsule Take 1 capsule by mouth daily. rosuvastatin (Crestor) 40 MG tablet Take 1 tablet (40 mg) by mouth daily. 30 tablet 2 tamsulosin (Flomax) 0.4 MG 24 hr capsule Take 1 capsule (0.4 mg) by mouth daily. 30 capsule 1 zinc gluconate 50 MG tablet Take 50 mg by mouth daily. No facility-administered medications prior to visit. Past Medical History: Diagnosis Date Atherosclerosis of coronary artery Hay fever Hemorrhoids History of alcohol abuse History of inferior wall myocardial infarction History of pulmonary embolism Hyperlipidemia Hypertension Mucous cyst of digit of hand NSVT (nonsustained ventricular tachycardia) (HCC) Objective Wt Readings from Last 3 Encounters: 06/14/23 230 lb (104 kg) 06/06/23 233 lb 7.5 oz (106 kg) 05/31/23 245 lb (111 kg) Physical exam deferred due to virtual visit-with audio (telephone) capabilities only. 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 Huang -Ibuprofen 800mg TID, recommend adding Robaxin 750mg TID PRN for muscle spasms/shooting pain in leg. -Pain in leg seems to be related to irritated/inflamed nerves. Unsure if related to EVH harvest or from positioning while in OR or in hospital or just from lower back tightness. -Numbness, tingling, cold, loss of color in hands sounds like Raynaud's syndrome. Difficult to assess over phone. Not related to arterial harvest. Recommend follow up with PCP. -OK to return to work, as long as he can delegate heavy lifting. Plan: POD#28 Day from Discharge (06/06/2023) #22 Weight restriction measures 1-4 weeks from date of surgery- 10lbs weight restriction: 06/28/23 5-8 weeks from date of surgery- 20lbs weight restriction approximate end date: 07/26/23 Disposition: Follow up phone call scheduled with CT Surgery on 07/06/23. Patient verbalized understanding of plan and stated they would call if any questions or concerns arise. Treatment Team: PCP: Crissy Engle DO Subjective HPI: 62 y.o. 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 Pmhx including RCA and PDA stents in 2008, HTN, Hx of NSVT, Hx of PE, former tobacco use and current ETOH use. He was see in OP setting 05/31/23 and noted to have unstable angina with palpitations and he was direct admitted for urgent CABG. Preoperative testing was completed and he consented to surgical revascularization. Of note patient lives alone at home. 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 Patient underwent surgery on 06/01/23. Patient did well post-op, only complication was urinary retention for which a isaac was re-placed and Urology consulted. A referral was placed to Urology in [place] for him to follow up with. He was discharged home on POD#05. 06/14/23: Patient presents today for postop open heart follow-up. He is doing well postoperatively has been walking multiple times a day following midsternal precautions. He does want to drive (discussed with surgeon), recommended not driving until 3 weeks from surgery. Risks discussed with driving earlier. Patient verbalized understanding. Surgical incisions healing appropriate no signs of infection or drainage noted. Patient still has Isaac catheter noted dark urine yesterday has cleared since has follow-up scheduled with urology due [place] retention [place] through the [place] Patient would like to establish with Dr. Gaines at [facility] will forward appropriate documents to his office after this visit. Pain is controlled no other needs at this time patient to call with any question concerns we will plan virtual visit in 3 weeks. 06/28/23: Patient called in to office today with a couple of questions he wanted to discuss. He is experiencing numbness and tingling in his R leg, mostly in the anterior and lateral portion of his thigh. States it started when he was in the hospital. Possibly could be related to EVH harvest but typically when related to the EVH harvest, the numbness and tingling and pain is located around the sites on the medial portion of the leg, near incisions. States that sometimes he is awaken from sleep with a sharp shooting pain in this area. Seems to be improved with ibuprofen use. Otherwise post-op pain seems to be well controlled. He wants to stop taking acetaminophen. He has been experiencing intermittent sensation in bilateral hands, where his hands become numb, tingly and cold. States they also turn white and bluish. Sometimes happens only on one side or the other or both at the same time. Seems to happen more in his right hand (opposite radial harvest). Lastly, patient wanted to ask about returning to work. 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 Discussed with him weight restrictions and where he currently falls in recovery. Overall patient is healing and recovering well from surgery. No Known Allergies Outpatient Medications Prior to Visit Medication Sig Dispense Refill acetaminophen (Tylenol) 500 MG tablet Take 2 tablets (1,000 mg) by mouth in the morning and 2 tablets (1,000 mg) at noon and 2 tablets (1,000 mg) before bedtime. amLODIPine (Norvasc) 2.5 MG tablet Take 1 tablet (2.5 mg) by mouth daily. 30 tablet 0 aspirin 81 MG EC tablet Take 81 mg by mouth daily. carvedilol (Coreg) 12.5 MG tablet Take 1 tablet (12.5 mg) by mouth in the morning and 1 tablet (12.5 mg) in the evening. Take with meals. 60 tablet 2 cholecalciferol 25 MCG (1000 UT) capsule Take 25 mcg by mouth daily. ibuprofen 800 MG tablet Take 800 mg by mouth 3 times daily as needed for mild pain (1-3). Krill Oil 500 MG capsule Take 1 capsule by mouth daily. Multiple Vitamin (multivitamin) capsule Take 1 capsule by mouth daily. rosuvastatin (Crestor) 40 MG tablet Take 1 tablet (40 mg) by mouth daily. 30 tablet 2 tamsulosin (Flomax) 0.4 MG 24 hr capsule Take 1 capsule (0.4 mg) by mouth daily. 30 capsule 1 zinc gluconate 50 MG tablet Take 50 mg by mouth daily. No facility-administered medications prior to visit. Past Medical History: Diagnosis Date Atherosclerosis of coronary artery Hay fever Hemorrhoids History of alcohol abuse History of inferior wall myocardial infarction History of pulmonary embolism Hyperlipidemia Hypertension Mucous cyst of digit of hand NSVT (nonsustained ventricular tachycardia) (HCC) Objective Wt Readings from Last 3 Encounters: 06/14/23 230 lb (104 kg) 06/06/23 233 lb 7.5 oz (106 kg) 05/31/23 245 lb (111 kg) Physical exam deferred due to virtual visit-with audio (telephone) capabilities only. Data Reviewed and Summarized Labs/Imaging/Testing: reviewed EMR, see A&P for pertinent diagnostic results related to office visit JOSE DNAIEL Rose CNP documented in this encounter [facility] 06-28-2023 Telephone encounter Note Patient called in wanting a work release dated for MondayJuly 02 with no restrictions. Also would like message about leg pain addressed. In addition he is also c/o hand going numb and turning a white to blue color and this of concern to him if this could be addressed as well. Please call [facility] 06-27-2023 Telephone encounter Note Pt states he is experiencing intermittent stabbing pain and continuous heaviness on his right outer thigh, on EVH leg. Pt is currently taking Tylenol 1000 mg BID, Motrin 800 mg BID, Motrin 1600 mg at bedtime. Pt states the pain is not managed. Pt denies any redness, swelling, or fevers. Pt also denies any sternum pain. Advised pt of post op pain management listed below. Pt verbalizes understanding. Pt states he feels the stabbing pain has gotten worse and more frequent in the past week. Please advise. 05/31/23: CABGx5 (CAMPBELL to LAD, Free left radial to OM2, SVG to right pDA, SVG to Diag1, SVG to Diag2) left radial harvest R leg EVH and PAM with LILLIAN Rubio Note 06/14/23 Patient presents today for postop open heart follow-up. He is doing well postoperatively has been walking multiple times a day following midsternal precautions. He does want to drive (discussed with surgeon), recommended not driving until 3 weeks from surgery. Risks discussed with driving earlier. Patient verbalized understanding. Surgical incisions healing appropriate no signs of infection or drainage noted. Patient still has Isaac catheter noted dark urine yesterday has cleared since has follow-up scheduled with [facility] due [place] [facility] [place] [facility] [place] Patient would like to establish with Dr. Gaines at [facility] will forward appropriate documents to his office after this visit. Pain is controlled no other needs at this time patient to call with any question concerns we will plan virtual visit in 3 weeks. Post-Operative Pain Management: Over The Counter-Tylenol (acetaminophen) 500 mg 1-2 tablets every 6 hours. No more than 4,000 mg in 24 hour period. Over The Counter-Motrin (ibuprofen) 200-400 mg by mouth every 4-6 hours (or) 600-800mg every 8 hours. No more than 3,200 mg per day. Over The Counter-pain patches (Salon pas) may be used as needed next to incision but not directly on your incision. Ice packs may be applied for 20 minutes, then off for at least 20 minutes before reapplying. [facility] 06-27-2023 Telephone encounter Note Terry called in and is having some pain in his left hip to knee on the outside. Feels like it falls asleep and then had stabbing pain. Wakes him from his sleep. Please call him back to discuss. [facility] 06-14-2023 History of Presen t illness Narrative Images from the original note were not included. [facility] Medical Group: [facility] [address] [facility] [address] Dept: [phone] Dept Loc: [phone] Visit type: Established patient - in person Surgery/Procedure: 05/31/23: CABGx5 (CAMPBELL to LAD, Free left radial to OM2, SVG to right pDA, SVG to Diag1, SVG to Diag2) left radial harvest R leg EVH and PAM with Dr. 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 Hx NSVT HLD HTN ETOH use Urinary retention Former Tobacco use Plan: POD#14 Day from Discharge (06/06/2023) #8 -Reviewed current meds Continue as ordered: ASA, statin, BB Amlodipine for radial arter graft for 30 days -Isaac per Urology - appointment scheduled for July 14 -Surgical Incisions: healing appropriately, well approximated, no s/s of infection -Physical therapy as outlined in discharge instructions: not ready to drive not ready for cardiac rehab Drive in one month from surgery -Acute Post-Operative Pain Tx plan: OTC as needed -Wires Only Weight restriction measures 1-4 weeks from date of surgery- 10lbs weight restriction: 06/28/23 5-8 weeks from date of surgery- 20lbs weight restriction approximate end date: 07/26/23 Treatment Team: PCP: Crissy Engle DO Cardiology: Dr. Gaines [place]: [place] Subjective HPI: 62 y.o. 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 Pmhx including RCA and PDA stents in 2008, HTN, Hx of NSVT, Hx of PE, former tobacco use and current ETOH use. He was see in OP setting 05/31/23 and noted to have unstable angina with palpitations and he was direct admitted for urgent CABG. Preoperative testing was completed and he consented to surgical revascularization. Of note patient lives alone at home. 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 Patient underwent surgery on 06/01/23. Patient did well post-op, only complication was urinary retention for which a isaac was re-placed and Urology consulted. A referral was placed to Urology in [place] for him to follow up with. He was discharged home on POD#05. 06/14/23: Patient presents today for postop open heart follow-up. He is doing well postoperatively has been walking multiple times a day following midsternal precautions. He does want to drive (discussed with surgeon), recommended not driving until 3 weeks from surgery. Risks discussed with driving earlier. Patient verbalized understanding. Surgical incisions healing appropriate no signs of infection or drainage noted. Patient still has Isaac catheter noted dark urine yesterday has cleared since has follow-up scheduled with urology due to urinary retention [place] 14 through the [place] Patient would like to establish with Dr. Gaines at [facility] will forward appropriate documents to his office after this visit. Pain is controlled no other needs at this time patient to call with any question concerns we will plan virtual visit in 3 weeks. Review of Systems Constitutional: Negative for diaphoresis, fatigue and fever. Respiratory: Negative for cough, shortness of breath and wheezing. Cardiovascular: Negative for chest pain, palpitations and leg swelling. Gastrointestinal: Negative for abdominal distention, constipation and diarrhea. Skin: Negative for color change, pallor and rash. Objective Vitals: 06/14/23 0940 BP: 117/79 Pulse: 85 Wt Readings from Last 3 Encounters: 06/14/23 230 lb (104 kg) 06/06/23 233 lb 7.5 oz (106 kg) 05/31/23 245 lb (111 kg) Physical Exam Cardiovascular: Rate and Rhythm: Normal rate and regular rhythm. Heart sounds: Normal heart sounds. Pulmonary: Effort: Pulmonary effort is normal. Breath sounds: Normal breath sounds. Abdominal: General: Bowel sounds are normal. Palpations: Abdomen is soft. There is no mass. Tenderness: There is no abdominal tenderness. Hernia: No hernia is present. Skin: General: Skin is warm and dry. Comments: Surgical Incisions: well approximate; clean dry with no drainage noted. Surrounding skin no redness, warmth, or signs of infection noted. Neurological: Mental Status: He is alert and oriented to person, place, and time. Labs/Imaging/Testing: reviewed EMR, see A&P for pertinent diagnostic results related to office visit Disclaimer INFORMED CONSENT:The nature and purpose of the proposed treatment or procedure have been discussed. The risks and benefits of the proposed treatment or procedures have been reviewed. Alternatives have been reviewed in addition to the risks and benefits of not receiving treatments or undergoing procedures. Pursuant to this discussion, the patient agrees to undergo the proposed treatment or procedure. Captured images seen in this note from are not a substitute for a comprehensive interpretation of the entire data set as reflected by the interpreting physician with regard to radiology, echocardiography, and other diagnostic images. This note may have been dictated using [employer] Medical Practice Edition 2.6 and/or EverTune Voice Recognition Feature. The document was proofread, however unrecognized voice recognition primary special education teacher errors may be present. documented in this encounter [facility] 06-14-2023 Instructions JOSE DANIEL Sultana CNP - 06/14/2023 10:30 AM EDT Yes weight restriction measures 1-4 weeks from date of surgery- 10lbs weight restriction: 06/28/23 5-8 weeks from date of surgery- 20lbs weight restriction approximate end date: 07/26/23 documented in this encounter [facility] 06-09-2023 Telephone encounter Note Patient called in and is experiencing some chest discomfort. He said it comes and goes, not sure if he is over doing it. Nervous due to living alone and worried something may happen. Please call him back to discuss. [phone] [facility] 06-09-2023 Miscellaneous Notes Patient called in and is experiencing some chest discomfort. He said it comes and goes, not sure if he is over doing it. Nervous due to living alone and worried something may happen. Please call him back to discuss. [phone] documented in this encounter [facility] 06-06-2023 History of Presen t illness Narrative Nutrition Note Type and Reason for Visit: Reassess Nutrition Recommendations/Plan: Continue diet as ordered Continue ONS Pt received diet education as described in assessment RD will continue to monitor and follow weekly Diet Education: Educated on heart healthy diet Learners: Patient Readiness: Acceptance Method: Explanation and Handout Response: Verbalizes Understanding Contact name and number provided. 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 He is observed dressed and ready for discharge. Pt is agreeable to diet education at this time. RD reviewed heart healthy diet recommendations including increasing fiber, vegetables, and whole fruit intake, avoiding use of salt, limiting processed and other high sodium foods, limiting cholesterol intake, saturated vs unsaturated fats, choosing lean proteins and low fat dairy, recommended daily limit of sodium and cholesterol, reading nutrition labels, etc. Provided [facility] handout for reference as well as [facility] RD phone number. Pt's questions were answered to his satisfaction and he verbalized understanding Domitila Herrera RD, LD Contact: *[phone] or via [employer] chat Images from the original note were not included. PHYSICAL THERAPY [facility] Treatment Note Name/MRN: Terry Lacy ([id number]) Date of : 1960 Age: 62 y.o. Room/Bed: T1-124/T1-124 A Discharge Recommendation: Home with assist PRN Equipment Needed: No Prior Level of Function ADL Assistance: Independent Ambulation Assistance: Independent Transfer Assistance: Independent Assessment Patient tolerated session well and is highly motivated. States he is getting discharged at 11 AM and is ready to go home. Pt was supervision for all mobility with no unsteadiness or LOB and maintains sternal precautions well. Instructed patient to keep doing P&C exercises a few times a day at home, he states he will be sure to do them and to maintain his precautions. Recommend Home with assist PRN upon discharge. Subjective Patient standing up in room. Agrees to PT this AM. States he is leaving soon. Pain: Pt denies any current pain. Medical Precautions: No active isolations Proper PPE donned/doffed in accordance with facility standards. Fall Risk: [place] Fall Risk Score: 35 (Medium Risk) Precautions/Restrictions: Sternal Precautions: No Pushing, No Pulling, No Lifting Greater Than 10 lbs Overall Cognitive Status: WNL Overall Orientation Status: Oriented x4 Family/Caregiver Present: none Objective Ambulation Ambulation 1 Assistive device(s) used: none Assist level: Supervision Distance (ft): 355 ft x2. 2 laps around U Quality of gait: No gait deviations, No LOB, reciprocal stepping, equal step length Transfers/Mobility Sit to stand: Supervision Stand to sit: Supervision Maintains sternal precautions well. Device(s) used: none Exercises Other exercises Other exercises?: Yes Other exercises 1: P&C exercises 1-9 x10 reps each AROM Other exercises 2: IS 1015-6935 mL x4 Bed Mobility Supine to sit: Supervision Sit to supine: Supervision Stairs Stairs 1 Assistive device used: none Assist Level: Supervision # of steps: 8 Rails: left, right Rails on left to start, turned around and had rails on right during second trial. Additional factors: reciprocal going up, reciprocal going down. Plan Continue acute PT per plan of care. Safety/Education Safety Safety Devices in place: All fall risk precautions in place, call light within reach, and no alarms engaged upon entry Restraints: No Education Education Given To: patient Education Provided: PT Role, PT Goals, Gait Training, Plan of Care, Home Exercise Program, Precautions, Transfer Training, and Benefits of Increasing Activity Education Method: Verbal and Demonstration Barriers to Learning: None Education Outcome: Verbalized Understanding and Demonstrated Understanding Outcome Measures AM-PAC AM-PAC Inpatient Mobility Raw Score : 24 AM-PAC Inpatient Mobility Raw Score (No Stairs) : 20 JH-HLM JH-HLM Score: Walked 250 ft or more (i.e. several laps on unit) Goals Patient Stated Goal: Decrease pain/discomfort and go home Encounter Problems Encounter Problems (Active) Cardiac Patient will perform bed mobility with independence in order to improve independence and prepare for out of bed mobility. (Progressing) Start: 06/02/23 Expected End: 06/30/23 Patient will complete sit to stand transfer with modified independence to none in order to improve safety and prepare for out of bed mobility. (Progressing) Start: 06/02/23 Expected End: 06/30/23 Patient will ambulate 500 feet or ambulate 5 minutes with modified independence with RPE of 14 or lower. (Progressing) Start: 06/02/23 Expected End: 06/30/23 Patient will ascend and descend 5 stairs with modified independence rail for balance only. (Progressing) Start: 06/02/23 Expected End: 06/30/23 Patient will be independent with P&C exercises. (Progressing) Start: 06/02/23 Expected End: 06/30/23 Patient will be independent with managing secretions and home walking program. (Progressing) Start: 06/02/23 Expected End: 06/30/23 Safety Patient will recall/demonstrate sternal precautions with all functional mobility in order to promote healing and safety with functional tasks. (Progressing) Start: 06/02/23 Expected End: 06/30/23 Therapy Time Individual Co-treatment Time In 0936 Time Out 0950 Minutes 14 Timed Code Treatment Minutes: (GT) ASHLEY Santizo This treatment session was completed by a student physical therapist optometric assistant under the supervision of the cosigning therapist. Julia Bourgeois PTA Images from the original note were not included. PHYSICAL THERAPY [facility] Treatment Note Name/MRN: Terry Lacy ([id number]) Date of : 1960 Age: 62 y.o. Room/Bed: T1-124/T1-124 A Discharge Recommendation: Home with assist PRN Equipment Needed: No Prior Level of Function ADL Assistance: Independent Ambulation Assistance: Independent Transfer Assistance: Independent Assessment Patient tolerated session well and is highly motivated. Patient was up and walking in hallway at start of session and walked to stairs. Required SBA during stair trial and completed 8 steps with the use of railing on left during one trial and right during next trial. During session pt required Supervision during ambulation back to room and had no LOB. Reviewed P&C exercises with patient and reminded him of Move in the Tube. Pt is compliant with precautions. Progressing toward PT goals. Recommend Home with assist PRN upon discharge. Subjective Pt up and walking independently in dc. Agrees to PT to trial stairs and go through P&C exercises. Pain: Pt denies any current pain. Medical Precautions: No active isolations Proper PPE donned/doffed in accordance with facility standards. Fall Risk: Castellon Fall Risk Score: 35 (Medium Risk) Precautions/Restrictions: Sternal Precautions: No Pushing, No Pulling, No Lifting Greater Than 10 lbs Lines/Drains/Airways: PIV Overall Cognitive Status: WNL Overall Orientation Status: Oriented x4 Family/Caregiver Present: none Objective Ambulation Ambulation 1 Assistive device(s) used: none Assist level: Supervision Distance (ft): 75 ft Quality of gait: No LOB, reciprocal stepping, equal step length Pt had already been up and walked a few laps around unit. Caught him while he was up to trial stairs and returned back to room. Transfers/Mobility Stand to sit: SBA Maintains sternal precautions well. Device(s) used: none Exercises Other exercises Other exercises?: Yes Other exercises 1: P&C exercises 1-9 x5 reps each AROM Balance: Posture: good Stairs Stairs 1 Assistive device(s) used: none Assist level: SBA # of steps: 8 Rails: left, right Started with rails on left, turned around and had rails on right Additional factors: reciprocal going up, reciprocal going down Plan Continue acute PT per plan of care. Safety/Education Safety Safety Devices in place: All fall risk precautions in place, call light within reach, and left in chair Restraints: No Education Education Given To: patient Education Provided: PT Role, PT Goals, Gait Training, Plan of Care, Home Exercise Program, Precautions, and Benefits of Increasing Activity Education Method: Verbal and Demonstration Barriers to Learning: None Education Outcome: Verbalized Understanding and Demonstrated Understanding Outcome Measures AM-PAC AM-PAC Inpatient Mobility Raw Score : 21 AM-PAC Inpatient Mobility Raw Score (No Stairs) : 17 JH-HLM JH-HLM Score: Walked 25 ft or more (i.e. walked outside of room) Goals Patient Stated Goal: Decrease pain/discomfort and go home Encounter Problems Encounter Problems (Active) Cardiac Patient will perform bed mobility with independence in order to improve independence and prepare for out of bed mobility. (Not Addressed) Start: 06/02/23 Expected End: 06/30/23 Patient will complete sit to stand transfer with modified independence to none in order to improve safety and prepare for out of bed mobility. (Progressing) Start: 06/02/23 Expected End: 06/30/23 Patient will ambulate 500 feet or ambulate 5 minutes with modified independence with RPE of 14 or lower. (Progressing) Start: 06/02/23 Expected End: 06/30/23 Patient will ascend and descend 5 stairs with modified independence rail for balance only. (Progressing) Start: 06/02/23 Expected End: 06/30/23 Patient will be independent with P&C exercises. (Progressing) Start: 06/02/23 Expected End: 06/30/23 Patient will be independent with managing secretions and home walking program. (Progressing) Start: 06/02/23 Expected End: 06/30/23 Safety Patient will recall/demonstrate sternal precautions with all functional mobility in order to promote healing and safety with functional tasks. (Progressing) Start: 06/02/23 Expected End: 06/30/23 Therapy Time Individual Co-treatment Time In 1046 Time Out 1103 Minutes 17 Timed Code Treatment Minutes: (TP) ASHLEY Santizo This treatment session was completed by a student physical therapist optometric assistant under the supervision of the cosigning therapist. Julia Bourgeois PTA Images from the original note were not included. Cardiothoracic Surgery Interval Note PATIENT NAME: Sylvester Lacy : 1960 (62 y.o.) TODAY'S DATE: 06/05/2023 Interval History: After discussion with surgeon - amee isaac and consult urology for recs. Patient likely d/c in next day or two Images from the original note were not included. Cardiothoracic Surgery/[facility] Progress Note PATIENT NAME: Sylvester Lacy DATE: 06/05/23 HPI: 62 y.o. 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 Pmhx including RCA and PDA stents in 2008, HTN, Hx of NSVT, Hx of PE, former tobacco use and current ETOH use. He was see in OP setting 05/31/23 and noted to have unstable angina with palpitations and he was direct admitted for urgent CABG. Preoperative testing was completed and he consented to surgical revascularization. Of note patient lives alone at home. 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 Surgery/Procedure: 05/31/23: CABGx5 (CAMPBELL to LAD, Free left radial to OM2, SVG to right pDA, SVG to Diag1, SVG to Diag2) left radial harvest R leg EVH and PAM with Dr. Huang Interval History: 06/05/23, POD# 5: VSS on Ra. Noted urinary retention throughout the weekend - started on flomax and straight cathed multiple times. Per patient has had issues in past with urgency and able to void in general; does not see a urologist as outpatient. No BM todate - discussed options will give MOM this morning if unsuccessful will try suppository Review of Systems Constitutional: Negative for diaphoresis, fatigue and fever. Respiratory: Negative for cough, shortness of breath and wheezing. Cardiovascular: Positive for chest pain (incisoinal). Negative for palpitations and leg swelling. Gastrointestinal: Negative for abdominal distention, constipation and diarrhea. Skin: Negative for color change, pallor and rash. Objective: Last BM Date: 05/31/23 Vitals: BP: 116/78, MAP (mmHg): 89, BP Method: Automatic Heart Rate: 88 Resp: 16 Temp: 36.8 C (98.2 F), Temp Source: Temporal BMI (Calculated): 35.15 CXR: BMP: Recent Labs 06/03/23 0405 06/04/23 0034 NA 134* 139 K 4.2 4.5 CL 103 100 CO2 24 33* BUN 20 18 CREATININE 0.88 0.70 CALCIUM 8.6 9.3 MG 2.2 -- CBC: Recent Labs 06/03/23 0405 06/04/23 0034 WBC 7.5 7.0 HGB 10.3* 10.5* HCT 32.0* 33.9* PLT 140 138* MCV 89.4 90.9 RDW 14.3 14.1 Physical Exam Cardiovascular: Rate and Rhythm: Normal rate and regular rhythm. Heart sounds: Normal heart sounds. No murmur heard. No friction rub. Pulmonary: Effort: Pulmonary effort is normal. Skin: General: Skin is warm and dry. Capillary Refill: Capillary refill takes less than 2 seconds. Findings: Bruising, ecchymosis and wound (skin tears from electrodes) present. Comments: Surgical Incisions: well approximate; clean dry with no drainage noted. Surrounding skin no redness, warmth, or signs of infection noted. Neurological: Mental Status: He is alert. Psychiatric: Behavior: Behavior is cooperative. *Epicardial wires not currently in place per patient were removed when CTs pulled Assessment: MVCAD s/p CABGx5 05/31/23 Hx NSVT HLD HTN ETOH use Urinary retention Former Tobacco use Post operative Pulm Management: Normal Post-operative Course Post-operative Atrial Fibrillation: []Yes [x] No Acute blood loss anemia/consumptive Plan: Patient Status: Telemetry Medications: Continue ASA, BB, statin CCB for 30 days due to radial artery harvest Flomax - urinary retention MOM x1; may need suppository for BM GI prophy: PO protonix DVT prophy: Heparin SubQ Bowel: senna/miralax Interventions: Remove IJ Bladder scan - may need isaac reinserted and Uro consult Pulmonary hygiene: IS and [place] MATILDEs, SCDs Restraints: []Yes [x] No Consults: Endocrinology signed off D/c recs: none follow up with PCP Wound care - electrode/skin tears Therapies: PT: home with assist 06/03 OT: home with assist 06/03 Disposition: TBD - likely home with home health in next couple of days? Patient discussed and plan of day developed from multidisciplinary rounds between Cardiothoracic Surgery (Cardiothoracic Surgeon, MATTY) and Critical Care Attending Cardiac Core Medications: ASA, Statin, and BB EF: 55% 04/07/23 Blood Conservation: None noted in post-operative period Public Health Training Assistant: Michelle Carl PA with [facility] Associated attestation - Alex Moy MD - 06/05/2023 11:20 AM EDT I have personally performed a face to face diagnostic evaluation on this patient today on 06/05/23. Labs, imaging studies, and electronic medical record notes on [employer] have been reviewed by me. This note documented and discussed by the []inspectors and regulatory officers []Fellow [x] MATTY reflects my history, exam and medical decision making. I have reviewed and agree with the care plan. Changes were made in the orders as necessary. ROS documentation was reviewed and negative unless otherwise stated in the HPI. My history, exam, assessment and plan are as follows: Time spent for coordination of care: a subsequent visit: 25 minutes (Level I) Awake, alert, resp unlabored CAD 3/7 s/p CABG x 5 HTN, HLD Normocytic anemia, expected post op Urinary retention On ASA, statin, b-constance Flomax started yesterday, if cont unable to void-->isaac re-insertion and urology eval, ?home with isaac Images from the original note were not included. OCCUPATIONAL THERAPY [facility] Initial Evaluation Name/MRN: Terry Lacy ([id number]) Evaluation Date: 06/04/2023 Date of : 1960 Admission Date: 05/31/2023 2:33 PM Age: 62 y.o. Room/Bed: T1-124/T1-124 A Discharge Recommendation: Home with assist PRN Equipment Needed: Yes Mobility Devices: ADL Assistive Devices ADL Assistive Devices: Shower Chair with back Assessment IMPRESSION: Patient is a 62-year-old male hospitalized s/p CABG x 5. Patient is functionally independent with self-care tasks and functional mobility at baseline. Patient is limited by the deficits listed below. Patient is Modified Independent for UB ADLs, Supervision LB ADLs and Supervision toileting. Patient is SBA bed mobility and Supervision for transfers/functional mobility. Recommending Home with Assist PRN upon discharge. Performance Deficits /Impairments: N/A Prognosis: Good Decision Making: Low Complexity Subjective Patient supine in bed; patient agreeable to therapy evaluation. RN ok'd for participation. Pain: RN managing pain. Past Medical History: Past Medical History: Diagnosis Date Atherosclerosis of coronary artery Hay fever Hemorrhoids History of alcohol abuse History of inferior wall myocardial infarction History of pulmonary embolism Hyperlipidemia Hypertension Mucous cyst of digit of hand NSVT (nonsustained ventricular tachycardia) ([facility]) Past Surgical History: Past Surgical History: Procedure Laterality Date CORONARY STENT PLACEMENT 2008 Admission Diagnosis: Patient Active Problem List Diagnosis Date Noted Coronary artery disease involving [place] heart with angina pectoris, unspecified vessel or lesion type ([facility]) 05/31/2023 Medical Precautions: No active isolations Proper PPE donned/doffed in accordance with facility standards. Fall Risk: Castellon Fall Risk Score: 35 (Medium Risk) Precautions/Restrictions: Sternal Precautions: No Pushing, No Pulling, No Lifting Greater Than 10 lbs Lines/Drains/Airways: PIV Family/Caregiver Present: none Overall Cognitive Status: WNL Overall Orientation Status: Oriented x4 Social/Functional History Patient admitted from home. Lives With: Alone Type of Home: single family home Home Layout: Split Level Home Home Access: Stairs to Enter without Rails (# of stairs: 1) + stairs in home without railings. Pt unsure of exact number. Bathroom Shower/Tub: step over tub Toilet: N/A Home Equipment: none Homemaking Responsibilities: Independent Receives Help From: None Active Assistant Guest Services Manager: Yes Prior Level of Function ADL Assistance: Independent Ambulation Assistance: Independent Transfer Assistance: Independent Objective ADLs LE Dressing: Supervision, donning/doffing socks sitting at EOB Toileting: Supervision, clothing management and peter-care Upper Extremity Assessment AROM: WFL PROM: WFL Strength: Exceptions: BUE strength: 3/5 Vision: no visual deficits Hearing: normal Bed Mobility Supine to sit: SBA Scooting: Supervision HOB elevated; no use of bed rail. Some cueing for sternal precautions. FAIR sitting balance. Transfers/Functional Mobility Sit to stand: Supervision Stand to sit: Supervision Toilet: Supervision Sitting balance: Modified Independent Standing balance: Supervision Functional mobility: Supervision Patient supervision for sit-stand from EOB. Patient ambulated into bathroom with no device. Patient supervision for transfer on/off commode. Patient requesting to ambulate in dc; item retrieval and obstacle negotiation completed with supervision. Patient with FAIR standing balance and good tolerance. Device(s) used: none and rollator AM-PAC AM-PAC Inpatient Daily Activity Raw Score: 24 ADL Inpatient CMS G-Code Modifier: CH Plan No skilled acute OT indicated at this time. Please reconsult should changes occur. Safety/Education Safety Safety Devices in place: All fall risk precautions in place, call light within reach, left in chair, gait belt, and nurse notified Restraints: No Education Education Given To: patient Education Provided: OT Role, Plan of Care, Precautions, and Discharge Recommendations Education Method: Verbal Barriers to Learning: None Education Outcome: Verbalized Understanding Goals Patient Stated Goal: to go home Therapy Time Individual Co-treatment Time In 1038 Time Out 1102 Minutes 24 Timed Code Treatment Minutes: 10 Minutes (self care- 1) Amena Tobin OT Patient's Occupational Therapy Plan of Care supervision is transferred to a [facility] Services Occupational Therapist. Goals and/or treatment plan was established in collaboration with patient/family/other representatives. Images from the original note were not included. Cardiothoracic Surgery/[facility] Progress Note PATIENT NAME: Sylvester Lacy DATE: 06/04/23 HPI: 62 y.o. 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 Pmhx including RCA and PDA stents in 2008, HTN, Hx of NSVT, Hx of PE, former tobacco use and current ETOH use. He was see in OP setting 05/31/23 and noted to have unstable angina with palpitations and he was direct admitted for urgent CABG. Preoperative testing was completed and he consented to surgical revascularization. Of note patient lives alone at home. 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 Cardiac cath showed 90% D1, 90% D2, 80% mLAD, 90% ostial OM1, 80% mCirc, 90% mRCA Surgery: 05/31/23: CABGx5 (CAMPBELL to LAD, Free left radial to OM2, SVG to right pDA, SVG to Diag1, SVG to Diag2) left radial harvest R leg EVH and PAM with Dr. Huang Interval History: 06/01/23: POD #3 - No acute events overnight - pt has allergy to tape and has some blistering where his Lido patches were placed. VSS, Labs stable Review of Systems Constitutional: Negative for diaphoresis, fatigue and fever. Respiratory: Negative for cough, shortness of breath and wheezing. Cardiovascular: Negative for chest pain, palpitations and leg swelling. Gastrointestinal: Negative for abdominal distention, constipation and diarrhea. Skin: Negative for color change, pallor and rash. Objective: Last BM Date: 05/31/23 Vitals: BP: 119/75, MAP (mmHg): 89, BP Method: Automatic Heart Rate: 88 Resp: 16 Temp: 36.8 C (98.2 F), Temp Source: Temporal BMI (Calculated): 35.15 CXR: BMP: Recent Labs 06/01/23 1245 06/02/23 0004 06/03/23 0405 06/04/23 0034 NA 139 136 134* 139 K 4.3 4.5 4.2 4.5 CL 109* 107 103 100 CO2 23 22 24 33* BUN 14 17 20 18 CREATININE 0.79 0.83 0.88 0.70 CALCIUM 8.7 7.9* 8.6 9.3 MG 2.9* 2.2 2.2 -- PHOS 3.2 -- -- -- CBC: Recent Labs 06/02/23 0004 06/03/23 0405 06/04/23 0034 WBC 8.1 7.5 7.0 HGB 9.8* 10.3* 10.5* HCT 29.7* 32.0* 33.9* PLT 146 140 138* MCV 87.9 89.4 90.9 RDW 14.2 14.3 14.1 INR: Recent Labs 06/02/23 0004 06/03/23 0405 06/04/23 0101 INR 1.2* 1.1 1.0 Physical Exam Cardiovascular: Rate and Rhythm: Regular rhythm. Heart sounds: Normal heart sounds. No murmur heard. No friction rub. No S4 sounds. Pulmonary: Effort: Pulmonary effort is normal. Skin: General: Skin is warm and dry. Capillary Refill: Capillary refill takes less than 2 seconds. Findings: Bruising and ecchymosis present. Comments: MSCI Intact Right EVH intact Left radial artery harvest sites intact RIJ introducer Neurological: Mental Status: He is alert. Psychiatric: Behavior: Behavior is cooperative. Assessment: MVCAD s/p CABGx5 05/31/23 Hx NSVT HLD HTN ETOH use Former Tobacco use Post operative Pulm Management: Normal Post-operative Course Post-operative Atrial Fibrillation: []Yes [x] No Plan: Patient Status: ICU GDMT for CAD with EF preserved - asa - Crestor - BB - lasix IV 40mg - continue bladder scans and flomax for prostate Hold home ranexa, lisinopril PT/OT: Home with home health Pulmonary hygiene: IS and Acapella GI prophy: PO protonix DVT prophy:TEDs, SCDs, and Heparin SubQ Disposition: TBD Central Line: [x]Yes [] No Arterial Line: []Yes [] No Isaac: [x]Yes [] No Restraints: []Yes [x] No Patient discussed and plan of day developed from multidisciplinary rounds between Cardiothoracic Surgery (Cardiothoracic Surgeon, MATTY) and Critical Care Attending Cardiac Core Medications: ASA and Statin EF: 55% Blood Conservation: None noted in post-operative period Public Health Training Assistant: MIESHA Yuan with the [place] Associated attestation - Susan Covington DO - 06/04/2023 1:30 PM EDT I have personally performed a [id number] diagnostic evaluation on this patient on date of service 06/04/23. History, labs, imaging studies, and electronic medical record have been reviewed by me. This note documented by the []pump house technician [x]MATTY reflects my history, exam, and medical decision making. I have reviewed and agree with the care plan. Changes were made in the orders as necessary. ROS documentation was reviewed and negative unless otherwise stated in HPI. Assessment: -POD 3 CABGx5 for mvCAD -acute post op blood loss anemia -HTN/HLD -hx NVST -EtOH use -obesity -urinary retention Plan: -stable on 2L NC, cont to wean. Cont to encourage pulm toilet, IS/acapella, OOB. -ASA, statin, BB -lasix x1 today -cont norvasc for radial artery harvest -Flomax added for urinary retention, bladder scanning/may need straight cath -PT/OT -tele status Images from the original note were not included. PHYSICAL THERAPY [facility] Treatment Note Name/MRN: Terry Lacy ([id number]) Date of : 1960 Age: 62 y.o. Room/Bed: T1-124/T1-124 A Discharge Recommendation: Home with assist PRN Equipment Needed: No Prior Level of Function ADL Assistance: Independent Ambulation Assistance: Independent Transfer Assistance: Independent Assessment Pt able to ambulate increased distance this date and required less assistance. He was Min A for bed mobility and CGA for transfers and ambulation. Will continue to recommend Home with assistance PRN at discharge. Subjective Pt supine in bed. Agreeable to PT session. Cleared by nursing Pain: Pt denies any current pain. Medical Precautions: No active isolations Proper PPE donned/doffed in accordance with facility standards. Fall Risk: Castellon Fall Risk Score: 50 (High Risk) Precautions/Restrictions: Sternal Precautions: No Pushing, No Pulling, No Lifting Greater Than 10 lbs and modified sternal precautions for move in the tube Lines/Drains/Airways: PIV, 3L O2 via NC Overall Cognitive Status: WFL Overall Orientation Status: Oriented x4 Family/Caregiver Present: none Objective Ambulation Ambulation 1 Assistive device(s) used: rollator Assist level: Contact Guard Distance (ft): 650' Quality of gait: slow marcelino Transfers/Mobility Sit to stand: Contact Guard Stand to sit: Contact Guard EOB x1 at rollator, did not required UE assist Device(s) used: rollator Bed Mobility Supine to sit: Min Assist HOB elevated, good maintenance of sternal precautions. Slight trunk assist Plan Continue acute PT per plan of care. Safety/Education Safety Safety Devices in place: call light within reach, nurse notified, and left on commode Restraints: No Education Education Given To: patient Education Provided: PT Role, PT Goals, Gait Training, Plan of Care, Precautions, and Transfer Training Education Method: Verbal Barriers to Learning: None Education Outcome: Verbalized Understanding Outcome Measures AM-PAC AM-PAC Inpatient Mobility Raw Score (No Stairs) : 18 JH-HLM -HLM Score: Walked 250 ft or more (i.e. several laps on unit) Goals Patient Stated Goal: Decrease pain/discomfort and go home Encounter Problems Encounter Problems (Active) Cardiac Patient will perform bed mobility with independence in order to improve independence and prepare for out of bed mobility. (Progressing) Start: 06/02/23 Expected End: 06/30/23 Patient will complete sit to stand transfer with modified independence to none in order to improve safety and prepare for out of bed mobility. (Progressing) Start: 06/02/23 Expected End: 06/30/23 Patient will ambulate 500 feet or ambulate 5 minutes with modified independence with RPE of 14 or lower. (Progressing) Start: 06/02/23 Expected End: 06/30/23 Patient will ascend and descend 5 stairs with modified independence rail for balance only. (Not Addressed) Start: 06/02/23 Expected End: 06/30/23 Patient will be independent with P&C exercises. (Not Addressed) Start: 06/02/23 Expected End: 06/30/23 Patient will be independent with managing secretions and home walking program. (Progressing) Start: 06/02/23 Expected End: 06/30/23 Safety Patient will recall/demonstrate sternal precautions with all functional mobility in order to promote healing and safety with functional tasks. (Progressing) Start: 06/02/23 Expected End: 06/30/23 Therapy Time Individual Co-treatment Time In 1133 Time Out 1146 Minutes 13 Timed Code Treatment Minutes: (1 gait) Lynnette Lira PT Department of Internal Medicine Division of Endocrinology, Diabetes, & Metabolism Endocrinology Note Patient Name: Sylvester Lacy : 1960 AGE: 62 y.o. Room[facility]Bed: [facility] A Admission Date: 05/31/2023 Visit Date: 06/03/2023 Reason for Endocrine Consult: Severe MV-CAD s/p CABG Provider/Team Requesting Consult: Darion Lopes APRN-ROTARY DRILL OPERATOR PCP: Crissy Engle DO Outpt Chassis Engineer: No ASSESSMENT: Prediabetes/stress hyperglycemia Severe MV-CAD s/p CABG Unstable angina Obesity Body mass index is 35.29 kg/m . HTN HLP PLAN: - BG stable without insulin requirement - discontinue SS insulin - no need for regular glucose monitoring - discussed importance of healthy lifestyle - will sign off ANTICIPATED ENDOCRINE HOME GOING RECOMMENDATIONS: Optimized for Discharge from Endocrine standpoint: YES Home Going Endocrine Rx Recommendations-- None Outpt Follow Up-- Follow up with PCP for prediabetes SUBJECTIVE/HPI: CHIEF COMPLAINT: No chief complaint on file. -pt seen at bedside -No acute events overnight -no insulin requirements from SS -eating well -no n/v -ambulated -denies CP/SOB -states he was prescribed ranolazine and was taking this prior to admission Glucose Date/Time Value Ref Range Status 06/03/2023 08:33 AM 119 (H) 70 - 100 mg/dL Final 06/02/2023 12:22 PM 125 (H) 70 - 100 mg/dL Final 06/02/2023 08:21 AM 110 (H) 70 - 100 mg/dL Final 06/02/2023 06:18 AM 111 (H) 70 - 100 mg/dL Final 06/02/2023 04:10 AM 99 70 - 100 mg/dL Final 06/02/2023 01:54 AM 117 (H) 70 - 100 mg/dL Final Review of Systems ROS negative except for those mentioned in HPI. OBJECTIVE: Vitals: 06/03/23 0000 06/03/23 0400 06/03/23 0600 06/03/23 0800 BP: 134/82 114/70 121/78 BP Location: Right arm Right arm Patient Position: Lying Lying Pulse: 81 90 81 Resp: 16 16 22 Temp: 36.8 C (98.2 F) 37.1 C (98.8 F) (!) 35.7 C (96.3 F) TempSrc: Temporal Temporal SpO2: 99% 93% 97% Weight: 240 lb (109 kg) Height: Physical Exam Constitutional: General: He is awake. He is not in acute distress. Eyes: General: No scleral icterus. Conjunctiva/sclera: Conjunctivae normal. Cardiovascular: Rate and Rhythm: Normal rate and regular rhythm. Pulses: Normal pulses. Heart sounds: Normal heart sounds. Comments: Sternotomy site clean and intact Pulmonary: Effort: Pulmonary effort is normal. No respiratory distress. Breath sounds: Normal breath sounds. Abdominal: General: There is no distension. Palpations: Abdomen is soft. Tenderness: There is no abdominal tenderness. Musculoskeletal: Right lower leg: No edema. Left lower leg: No edema. Skin: General: Skin is warm and dry. Neurological: Mental Status: He is alert. Motor: No weakness. Psychiatric: Mood and Affect: Mood normal. Behavior: Behavior normal. 24 hour intake/output: Intake/Output Summary (Last 24 hours) at 06/03/2023 1040 Last data filed at 06/03/2023 0716 Gross per 24 hour Intake 1203 ml Output 1688 ml Net -485 ml Diet: Adult diet Regular; Low Sodium (2 gm); 5 carb choices (75 gm/meal) Medications (as per EMR): HomeMeds: Current Outpatient Medications Medication Instructions aspirin 81 mg, Oral, Daily carvedilol (COREG) 6.25 mg, Oral, 2 times daily with meals cholecalciferol (CHOLECALCIFEROL) 25 mcg, Oral, Daily ibuprofen 800 mg, Oral, 3 times daily PRN isosorbide mononitrate ER (IMDUR) 60 mg, Oral, Daily, Do not crush or chew. Krill Oil 500 MG capsule 1 capsule, Oral, Daily lisinopril 2.5 mg, Oral, Daily Multiple Vitamin (multivitamin) capsule 1 capsule, Oral, Daily nitroglycerin (NITROSTAT) 0.4 mg, SubLINGual, Every 5 min PRN ranolazine (RANEXA) 1,000 mg, Oral, 2 times daily, Do not crush, chew, or split. rosuvastatin (CRESTOR) 10 mg, Oral, Daily zinc gluconate 50 mg, Oral, Daily Scheduled Meds:acetaminophen, 1,000 mg, Oral, q8h amLODIPine, 2.5 mg, Oral, Daily aspirin, 81 mg, Oral, Daily carvedilol, 3.125 mg, Oral, BID WC chlorhexidine, 15 mL, Mouth/Throat, BID furosemide, 40 mg, IntraVENous, Once heparin, 5,000 Units, SubCUTAneous, BID insulin lispro, 0-6 Units, SubCUTAneous, TID WC Lidocaine, 1 patch, Topical, Daily methocarbamol, 500 mg, Oral, 4 times per day mupirocin, , Nasal, BID [START ON 06/04/2023] pantoprazole, 40 mg, Oral, qAM AC polyethylene glycol (PEG) 3350, 17 g, Oral, Daily rosuvastatin, 40 mg, Oral, Daily senna-docusate sodium, 2 tablet, Oral, Nightly sodium chloride 0.9%, 10 mL, IntraVENous, 2 times per day Continuous Infusions: PRN Meds:PRN medications: calcium gluconate, dextrose, dextrose, glucagon (rDNA), glucose, ipratropium-albuterol, magnesium hydroxide, magnesium sulfate OR magnesium sulfate, naloxone, ondansetron ODT OR ondansetron, oxyCODONE OR oxyCODONE, potassium chloride CR, sodium chloride 0.9% Diagnostic Workup: I reviewed pertinent Laboratory results, Radiographic results, and Other Clinical Notes at the time of today's encounter. Labs: No components found for: LABA1C No components found for: EAG Lab Results Component Value Date NA 134 (L) 06/03/2023 K 4.2 06/03/2023 CL 103 06/03/2023 CO2 24 06/03/2023 BUN 20 06/03/2023 CREATININE 0.88 06/03/2023 GLUCOSE 149 (H) 06/03/2023 CALCIUM 8.6 06/03/2023 No results found for: CHLPL, CHOL No results found for: TRIG No results found for: HDL No results found for: LDLCALC No results found for: VLDL No results found for: CHOLHDLRATIO No results found for: [id number] No results found for: TSH, [id number], [id number], THYROIDAB Radiology reportsas per the Radiologist Radiology: POCT glucose meter Result Date: 06/01/2023 Performed by: [facility], [address] [place] [id number] CLIA ID: [id number] POCT glucose meter Result Date: 06/01/2023 Performed by: [facility], [address] [place] [id number] CLIA ID: [id number] POCT glucose meter Result Date: 06/01/2023 Performed by: [facility], [address] [place] [id number] CLIA ID: [id number] POCT glucose meter Result Date: 06/01/2023 Performed by: [facility], [address] [place] [id number] CLIA ID: [id number] POCT glucose meter Result Date: 06/01/2023 Performed by: [facility], [address] [place] [id number] CLIA ID: [id number] POCT glucose meter Result Date: 06/01/2023 Performed by: [facility], [address] [place] [id number] CLIA ID: [id number] Transesophageal echocardiogram (PAM) with contrast and 3D PRN Result Date: 06/01/2023 Left Ventricle: Left ventricle size is normal. Normal wall thickness. Normal left ventricular systolic function. The EF by visual approximation is 60%. Normal wall motion. Right Ventricle: Right ventricle size is normal. Normal systolic function. Left Atrium: No left atrial appendage thrombus noted. No significant valvular abnormalities. POCT glucose meter Result Date: 06/01/2023 Performed by: [facility], [address] [place] [id number] CLIA ID: [id number] POCT glucose meter Result Date: 06/01/2023 Performed by: [facility], [address] [facility] [address] CLIA ID: [id number] XR chest 1 view Result Date: 06/01/2023 Patient Name: SYLVESTER LACY : 1960 Exam Date/Time: 06/01/2023 14:35 Procedure: XR CHEST 1 VIEW Ordering Provider: LOPES ANDREW Reason For Exam: Post op open heart surgery EXAMINATION: CHEST RADIOGRAPH (SINGLE VIEW AP OR PA) Clinical History: Post op open heart surgery Comparison: Chest CT 05/31/2023 RESULT: See impression Lines, tubes, and devices: Interval placement of endotracheal tube terminating 2 cm by the pavel. Interval placement of NG/OG tube which extends below the diaphragm and below the field of view. Interval placement of right IJ approach pulmonary artery catheter with tip in the pulmonary outflow tract. Interval placement of bilateral chest tubes terminating near the apex on the right and lung base on the left. A mediastinal drain is not visualized though may be obscured by multiple overlying lines. Retained epicardial pacing wires. Lungs and pleura: No consolidation. No sizable pleural effusion or pneumothorax. Cardiomediastinal silhouette:Prominent cardiac silhouette though may be exaggerated by technique. Postoperative changes of median sternotomy for CABG. Other: Degenerative changes of the spine and acromioclavicular joints. Report Dictated on Electronically Signed By: Marcelino Anglin MD Electronically Signed Date/Time: 06/01/2023 2:40 PM EST ECG 12 lead Sinus rhythm Borderline left axis deviation POCT glucose meter Result Date: 06/01/2023 Performed by: [facility], [address] [place] [id number] CLIA ID: [id number] CT chest wo IV contrast Result Date: 06/01/2023 Patient Name: SYLVESTER LACY : 1960 Exam Date/Time: 05/31/2023 16:53 Procedure: CT CHEST WO IV CONTRAST Ordering Provider: LOPSE ANDREW Reason For Exam: assess aorta prior to open heart surgery CT CHEST WITHOUT CONTRAST: CLINICAL INDICATION: Open heart surgery. TECHNIQUE: Transaxial sequence from apices through the bases with 1 mm reconstruction interval. Coronal and sagittal reconstructions included. Dose reduction was employed with automated exposure control. COMPARISON: None. FINDINGS: Lungs/airways: Mild bibasilar atelectasis without evidence of pleural effusion, focal consolidation or pneumothorax. Pulmonary nodules: No discrete pulmonary nodules. Lower neck, lymph nodes, and mediastinum: The visualized thyroid gland is unremarkable. No mediastinal, hilar, or axillary lymphadenopathy based on size criteria. Trace hiatal hernia. Heart, pericardium, and thoracic vessels: The thoracic aorta is normal in caliber with mild atherosclerotic calcifications. Please note the aorta is approximately 2.3 cm posterior to the sternum at the level the aortic arch which is the closest proximity. The pulmonary artery is normal in size. The heart is normal in size without evidence of pericardial effusion. Severe coronary artery calcifications. (Please note the study is not tailored for coronary artery evaluation.) Upper abdomen: No abnormality in the visualized upper abdomen. Bones and soft tissues: The soft tissues are unremarkable. No suspicious osseous lesions. Mild multilevel discogenic degenerative changes. The aorta is approximately 2.3 cm posterior to the sternum at the level of the aortic arch which is the closest proximity. There are mild atherosclerotic calcifications of the aorta without aneurysmal dilatation. Additional findings as described. Report Dictated on Electronically Signed By: Mitch Pierson MD Electronically Signed Date/Time: 06/01/2023 9:26 AM EST ECG 12 lead Sinus rhythm Left axis deviation Vascular US palmar arch evaluation Result Date: 05/31/2023 There is diminished right PPG waveforms with radial artery compression indicative of incomplete arch. There are no changes to left PPG signals with radial artery compression indicative of a complete arch. ECG 12 lead Sinus rhythm Left axis deviation History/Other: Past Medical History: Past Medical History: Diagnosis Date Atherosclerosis of coronary artery Hay fever Hemorrhoids History of alcohol abuse History of inferior wall myocardial infarction History of pulmonary embolism Hyperlipidemia Hypertension Mucous cyst of digit of hand NSVT (nonsustained ventricular tachycardia) (HCC) Past Surgical History: Past Surgical History: Procedure Laterality Date CORONARY STENT PLACEMENT 2008 Allergy(ies): No Known Allergies Family History: Family History Problem Relation Name Age of Onset Diabetes Mother Social History: Social History Tobacco Use Smoking status: Former Packs/day: 1.50 Years: 30.00 Additional pack years: 0.00 Total pack years: 45.00 Types: Cigarettes Quit date: 2014 Years since quittin.1 Smokeless tobacco: Never Substance Use Topics Alcohol use: Yes Alcohol/week: 12.0 standard drinks of alcohol Types: 12 Cans of beer per week Drug use: Never Portions of the information within this encounter were entered using an electronic dictation system. Best attempts were made to edit/proofread the information prior to note completion. Despite the review of information, some errors may remain. If there are questions related to the information contained within the note please contact the signing physician directly. Images from the original note were not included. Cardiothoracic Surgery/[facility] Progress Note PATIENT NAME: Sylvester Lacy DATE: 06/03/23 HPI: 62 y.o. 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 Pmhx including RCA and PDA stents in 2008, HTN, Hx of NSVT, Hx of PE, former tobacco use and current ETOH use. He was see in OP setting 05/31/23 and noted to have unstable angina with palpitations and he was direct admitted for urgent CABG. Preoperative testing was completed and he consented to surgical revascularization. Of note patient lives alone at home. 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 Cardiac cath showed 90% D1, 90% D2, 80% mLAD, 90% ostial OM1, 80% mCirc, 90% mRCA Surgery: 05/31/23: CABGx5 (CAMPBELL to LAD, Free left radial to OM2, SVG to right pDA, SVG to Diag1, SVG to Diag2) left radial harvest R leg EVH and PAM with Dr. Huang Interval History: 06/01/23: POD #2 pt doing well overnight - no new issues - minimal CT output - labs stable - pain well controlled Review of Systems Constitutional: Negative for diaphoresis, fatigue and fever. Respiratory: Negative for cough, shortness of breath and wheezing. Cardiovascular: Negative for chest pain, palpitations and leg swelling. Gastrointestinal: Negative for abdominal distention, constipation and diarrhea. Skin: Negative for color change, pallor and rash. Objective: Last BM Date: 05/31/23 Vitals: BP: 121/78, MAP (mmHg): 84, BP Method: Automatic Heart Rate: 81 Resp: 22 Temp: (!) 35.7 C (96.3 F), Temp Source: Temporal BMI (Calculated): 35.43 CXR: BMP: Recent Labs 05/31/23 1501 06/01/23 1245 06/02/23 0004 06/03/23 0405 NA 137 139 136 134* K 4.0 4.3 4.5 4.2 CL 103 109* 107 103 CO2 28 23 22 24 BUN 12 14 17 20 CREATININE 0.75 0.79 0.83 0.88 CALCIUM 9.4 8.7 7.9* 8.6 MG 2.0 2.9* 2.2 2.2 PHOS 3.2 3.2 -- -- CBC: Recent Labs 06/01/23 1245 06/02/23 0004 06/03/23 0405 WBC 5.6 8.1 7.5 HGB 10.4 8.9* 9.8* 10.3* HCT 27.1* 29.7* 32.0* PLT 136* 146 140 MCV 88.9 87.9 89.4 RDW 14.2 14.2 14.3 INR: Recent Labs 06/01/23 1245 06/02/23 0004 06/03/23 0405 INR 1.5* 1.2* 1.1 Physical Exam Cardiovascular: Rate and Rhythm: Regular rhythm. Heart sounds: Normal heart sounds. No murmur heard. No friction rub. No S4 sounds. Pulmonary: Effort: Pulmonary effort is normal. Skin: General: Skin is warm and dry. Capillary Refill: Capillary refill takes less than 2 seconds. Findings: Bruising and ecchymosis present. Comments: MSCI Intact Right EVH intact Left radial artery harvest sites intact RIJ introducer Neurological: Mental Status: He is alert. Psychiatric: Behavior: Behavior is cooperative. Assessment: MVCAD s/p CABGx5 05/31/23 Hx NSVT HLD HTN ETOH use Former Tobacco use Post operative Pulm Management: Normal Post-operative Course Post-operative Atrial Fibrillation: []Yes [x] No Plan: Patient Status: ICU GDMT for CAD with EF preserved - asa - Crestor - start BB today - lasix IV 40mg - Dc isaac later - DC CT Hold home ranexa, lisinopril PT/OT: Home with home health Pulmonary hygiene: IS and Acapella GI prophy: PO protonix DVT prophy:TEDs, SCDs, and Heparin SubQ Disposition: TBD Central Line: [x]Yes [] No Arterial Line: []Yes [] No Isaac: [x]Yes [] No Restraints: []Yes [x] No Patient discussed and plan of day developed from multidisciplinary rounds between Cardiothoracic Surgery (Cardiothoracic Surgeon, MATTY) and Critical Care Attending Cardiac Core Medications: ASA and Statin EF: 55% Blood Conservation: None noted in post-operative period Public Health Training Assistant: MIESHA Yuan with the [facility] Associated attestation - Susan Covington DO - 06/04/2023 1:30 PM EDT I have personally performed a [id number] diagnostic evaluation on this patient on date of service 06/03/23. History, labs, imaging studies, and electronic medical record have been reviewed by me. This note documented by the []pump house technician [x]MATTY reflects my history, exam, and medical decision making. I have reviewed and agree with the care plan. Changes were made in the orders as necessary. ROS documentation was reviewed and negative unless otherwise stated in HPI. Assessment: -POD 2 CABGx5 for mvCAD -acute post op blood loss anemia -HTN/HLD -hx NVST -EtOH use -obesity Plan: -stable on 2L NC, cont to wean. Encourage pulm toilet, IS/acapella, OOB. Has been up walking laps around the unit. -ASA, statin, start BB -lasix x1 today -plan to DC chest tubes and Isaac later -cont norvasc for radial artery harvest -PT/OT Images from the original note were not included. PHYSICAL THERAPY [facility] Initial Evaluation Name/MRN: Terry Lacy ([id number]) Evaluation Date: 06/02/2023 Date of : 1960 Admission Date: 05/31/2023 2:33 PM Age: 62 y.o. Room/Bed: T1-124/T1-124 A Discharge Recommendation: Home with assist PRN Assessment IMPRESSION: Pt is 1 day s/p CABGx5 with moderate levels of pain that limits his ROM and functional mobility. Pain noted with all functional mobility, but was able to complete. Decreased endurance noted during functional ambulation. Pt does not currently own any assistive devices. Current device recommendations pending based on recovery prior to discharge. Pt states that he is able to reside at his place of employment in a SNF ([place]) as he is concerned about being discharged and living alone. Current discharge recommendation is home with assistance PRN. Diagnosis: CAD involving [place]western [place] heart with angina pectoris, unspecified vessel or lesion type; s/p CABGx5 05/31 Prognosis: good Performance Deficits /Impairments: Increased Pain, Decreased Functional Mobility, and Decreased Endurance Decision Making: Low Complexity Subjective Pt was in bed at start of session and was agreeable to PT elaina. BEBA PERRY for PT assessment/treatment. Pain: 0-10 pain scale: 5/10 Location: chest (around tubes and incisions) Past Medical History: Past Medical History: Diagnosis Date Atherosclerosis of coronary artery Hay fever Hemorrhoids History of alcohol abuse History of inferior wall myocardial infarction History of pulmonary embolism Hyperlipidemia Hypertension Mucous cyst of digit of hand NSVT (nonsustained ventricular tachycardia) ([facility]) Past Surgical History: Past Surgical History: Procedure Laterality Date CORONARY STENT PLACEMENT 2008 Admission Diagnosis: Patient Active Problem List Diagnosis Date Noted Coronary artery disease involving [place]western [place] heart with angina pectoris, unspecified vessel or lesion type (HCC) 05/31/2023 Medical Precautions: No active isolations Proper PPE donned/doffed in accordance with facility standards. Fall Risk: [place] Fall Risk Score: 35 (Medium Risk) Precautions/Restrictions: Sternal Precautions: Move in the tube precautions Lines/Drains/Airways: Chest tubes x2, temporary pacemaker, PIV RT, introducer RT IJV, isaac catheter. Family/Caregiver Present: none Overall Cognitive Status: WNL Overall Orientation Status: Oriented x4 Vision: not assessed this session Hearing: normal Social/Functional History Patient admitted from home. Lives With: Alone Type of Home: single family home Home Layout: Split Level Home Home Access: Stairs to Enter without Rails (# of stairs: 1) + stairs in home without railings. Pt unsure of exact number. Bathroom Shower/Tub: Toilet: N/A Home Equipment: none Homemaking Responsibilities: Independent Receives Help From: None Active Assistant Guest Services Manager: Yes Prior Level of Function ADL Assistance: Independent Ambulation Assistance: Independent Transfer Assistance: Independent Objective Lower Extremity Assessment AROM: WFL PROM: WFL *UE ROM limited second to sternal precautions* Strength: WNL Bed Mobility: Supine to sit: Min Assist Sit to supine: Min Assist Transfers Sit to stand: Min Assist Stand to sit: Min Assist Ambulation Ambulation 1 Assistive device(s) used: Clicks2Customers Assist level: Contact Guard Distance (ft): 355 Quality of gait: antalgic, wide ASHLEE, postural sway Verbal cueing provided throughout ambulation for upright posture in order to open chest and prevent kyphosis. *several breaks taken in standing d/t pain* Balance: Posture: fair Static sitting balance - 3 minutes - Supervision with verbal and tactile cueing provided for appropriate posturing and to limit pressing through arms. Sitting - Static: Supervision Sitting - Dynamic: Min Assist Standing - Static: SBA Standing - Dynamic: Min Assist Exercises: Shoulder shrugs- 1x10 Arm swings- 1x10 each side Shoulder blade squeezes- 1x10 *Tactile cueing provided between scapulae to promote appropriate retraction Arm circles- 10x each direction Trunk rotation- x7 each direction Downward cross- x7 *All exercises performed with PT visual demonstration and verbal/tactile cueing as needed for appropriate form and postural positioning. Pt educated to only perform exercises within pain tolerance and to make sure they are following all ROM precautions established by surgical protocol (I.e UE movement >90 degrees).* Outcome Measures AM-PAC How much HELP from another person do you currently need Turning from your back to your side while in a flat bed without using bedrails?: A Little Moving from lying on your back to sitting on the side of a flat bed without using bedrails?: A Little Moving to and from a bed to a chair (including a wheelchair)?: A Little Standing up from a chair using your arms (wheelchair or bedside chair)?: A Little Walking in a hospital room?: A Little Stair climbing assessed?: No AM-PAC Inpatient Mobility Raw Score (No Stairs) : 15 JH-HLM JH-HLM Score: Walked 250 ft or more (i.e. several laps on unit) Plan Pt would benefit from skilled acute PT services to address Functional Mobility Training, Endurance Training, and Safety Education and Training. Frequency: 5x/week for 4 weeks Barriers: Pain and New weightbearing/ROM restrictions Safety/Education Safety Safety Devices in place: All fall risk precautions in place, call light within reach, left in bed, and no alarms engaged upon entry Restraints: No Education Education Given To: patient Education Provided: PT Role, PT Goals, Plan of Care, Home Exercise Program, Precautions, and Discharge Recommendations Education Method: Verbal and Demonstration Barriers to Learning: None Education Outcome: Verbalized Understanding and Demonstrated Understanding Goals Patient Stated Goal: Decrease pain/discomfort and go home Encounter Problems Encounter Problems (Active) Cardiac Patient will perform bed mobility with independence in order to improve independence and prepare for out of bed mobility. Start: 06/02/23 Expected End: 06/30/23 Patient will complete sit to stand transfer with modified independence to none in order to improve safety and prepare for out of bed mobility. Start: 06/02/23 Expected End: 06/30/23 Patient will ambulate 500 feet or ambulate 5 minutes with modified independence with RPE of 14 or lower. Start: 06/02/23 Expected End: 06/30/23 Patient will ascend and descend 5 stairs with modified independence rail for balance only. Start: 06/02/23 Expected End: 06/30/23 Patient will be independent with P&C exercises. Start: 06/02/23 Expected End: 06/30/23 Patient will be independent with managing secretions and home walking program. Start: 06/02/23 Expected End: 06/30/23 Safety Patient will recall/demonstrate sternal precautions with all functional mobility in order to promote healing and safety with functional tasks. Start: 06/02/23 Expected End: 06/30/23 Therapy Time Individual Co-treatment Time In 1348 Time Out 1421 Minutes 33 Timed Code Treatment Minutes: 8 Minutes (FA) HOLLY Carrasco Patient's Physical Therapy Plan of Care supervision is transferred to a [facility] Physical Therapist. Goals and/or treatment plan was established in collaboration with patient/family/other representatives. Department of Internal Medicine Division of Endocrinology, Diabetes, & Metabolism Endocrinology Note Patient Name: Sylvester Lacy : 1960 AGE: 62 y.o. Room/Bed: T1-124/T1-124 A Admission Date: 05/31/2023 Visit Date: 06/02/2023 Reason for Endocrine Consult: Severe MV-CAD s/p CABG Provider/Team Requesting Consult: Darion Lopes APRN-ROTARY DRILL OPERATOR PCP: Crissy Engle DO Outpt Chassis Engineer: No ASSESSMENT: Prediabetes (A1c 6.2%) Severe Multivessel CAD s/p CABG Hx of [place] s/p stent to RCA and PDA in 2008 Hx of PE Hx of NSVT Hypertension Hyperlipidemia BMI 35.78 kg/m2 Hx of tobacco use PLAN: - On post-surgical insulin regimen. No longer requiring insulin drip. - Transition to LDSS - Continue BG monitoring - Recommend carb control diet - Recommend prediabetes counseling to reduce likelihood of progression to T2DM - Hypoglycemia management per protocol ICU goal <180 GMF goal <150 POCT BG ACHS ANTICIPATED ENDOCRINE HOME GOING RECOMMENDATIONS: Optimized for Discharge from Endocrine standpoint: No Home Going Endocrine Rx Recommendations-- Will likely not require pharmacotherapy on discharge Outpt Follow Up-- Follow up with PCP for prediabetes SUBJECTIVE/HPI: CHIEF COMPLAINT: No chief complaint on file. No acute events overnight. Did use insulin briefly for mildly elevated glucose around 120. No longer requiring insulin drip. Is agreeable to LDSS as needed. Tolerating a diet this morning. Is aware of the importance of limiting carbohydrate intake in the future. Endorses pain at the surgical site. No other complaints this morning. Glucose Date/Time Value Ref Range Status 06/02/2023 06:18 AM 111 (H) 70 - 100 mg/dL Final 06/02/2023 04:10 AM 99 70 - 100 mg/dL Final 06/02/2023 01:54 AM 117 (H) 70 - 100 mg/dL Final 06/02/2023 12:04 AM 115 (H) 70 - 100 mg/dL Final 06/01/2023 09:56 PM 116 (H) 70 - 100 mg/dL Final 06/01/2023 09:09 PM 118 (H) 70 - 100 mg/dL Final Review of Systems Constitutional: Negative for chills, diaphoresis, fatigue and fever. HENT: Negative for congestion and rhinorrhea. Respiratory: Negative for cough, chest tightness, shortness of breath and wheezing. Cardiovascular: Positive for chest pain (2/2 CABG). Negative for palpitations and leg swelling. Gastrointestinal: Negative for abdominal pain, constipation, diarrhea, nausea and vomiting. Endocrine: Negative for polydipsia, polyphagia and polyuria. Neurological: Negative for dizziness, weakness, light-headedness, numbness and headaches. Psychiatric/Behavioral: Negative for agitation, confusion and sleep disturbance. The patient is not nervous/anxious. ROS negative except for those mentioned in HPI. OBJECTIVE: Vitals: 06/02/23 0615 06/02/23 0630 06/02/23 0645 06/02/23 0700 BP: BP Location: Patient Position: Pulse: 83 80 82 81 Resp: Temp: TempSrc: SpO2: 93% 93% 93% 92% Weight: Height: Physical Exam Constitutional: General: He is not in acute distress. Appearance: Normal appearance. He is not ill-appearing, toxic-appearing or diaphoretic. HENT: Head: Normocephalic. Nose: No congestion. Mouth/Throat: Mouth: Mucous membranes are moist. Eyes: General: No scleral icterus. Extraocular Movements: Extraocular movements intact. Conjunctiva/sclera: Conjunctivae normal. Cardiovascular: Rate and Rhythm: Normal rate and regular rhythm. Pulses: Normal pulses. Heart sounds: Normal heart sounds. No murmur heard. No friction rub. No gallop. Comments: Sternotomy site looks C/D/I Pulmonary: Effort: Pulmonary effort is normal. No respiratory distress. Breath sounds: Normal breath sounds. No wheezing. Comments: On 3L NC Abdominal: General: Abdomen is flat. Bowel sounds are normal. There is no distension. Palpations: Abdomen is soft. Tenderness: There is no abdominal tenderness. There is no guarding. Musculoskeletal: Right lower leg: No edema. Left lower leg: No edema. Skin: General: Skin is warm and dry. Neurological: Mental Status: He is alert and oriented to person, place, and time. Motor: No weakness. Psychiatric: Mood and Affect: Mood normal. Behavior: Behavior normal. 24 hour intake/output: Intake/Output Summary (Last 24 hours) at 06/02/2023 0819 Last data filed at 06/02/2023 0700 Gross per 24 hour Intake 5157.13 ml Output 3402 ml Net 1755.13 ml Diet: Adult diet Regular; Low Sodium (2 gm) Medications (as per EMR): HomeMeds: Current Outpatient Medications Medication Instructions aspirin 81 mg, Oral, Daily carvedilol (COREG) 6.25 mg, Oral, 2 times daily with meals cholecalciferol (CHOLECALCIFEROL) 25 mcg, Oral, Daily ibuprofen 800 mg, Oral, 3 times daily PRN isosorbide mononitrate ER (IMDUR) 60 mg, Oral, Daily, Do not crush or chew. Krill Oil 500 MG capsule 1 capsule, Oral, Daily lisinopril 2.5 mg, Oral, Daily Multiple Vitamin (multivitamin) capsule 1 capsule, Oral, Daily nitroglycerin (NITROSTAT) 0.4 mg, SubLINGual, Every 5 min PRN ranolazine (RANEXA) 1,000 mg, Oral, 2 times daily, Do not crush, chew, or split. rosuvastatin (CRESTOR) 10 mg, Oral, Daily zinc gluconate 50 mg, Oral, Daily Scheduled Meds:acetaminophen, 1,000 mg, Oral, q8h amLODIPine, 2.5 mg, Oral, Daily aspirin, 81 mg, Oral, Daily ceFAZolin, 2,000 mg, IntraVENous, q8h chlorhexidine, 15 mL, Mouth/Throat, BID ketorolac, 15 mg, IntraVENous, q6h Lidocaine, 1 patch, Topical, Daily mupirocin, , Nasal, BID polyethylene glycol (PEG) 3350, 17 g, Oral, Daily rosuvastatin, 40 mg, Oral, Daily senna-docusate sodium, 2 tablet, Oral, Nightly sodium chloride 0.9%, 10 mL, IntraVENous, 2 times per day Continuous Infusions:insulin regular, 1-50 Units/hr, Last Rate: Stopped (06/01/232000) PRN Meds:PRN medications: calcium gluconate, dextrose, dextrose, glucagon (rDNA), glucose, ipratropium-albuterol, magnesium hydroxide, magnesium sulfate OR magnesium sulfate, naloxone, ondansetron ODT OR ondansetron, oxyCODONE OR oxyCODONE, potassium chloride OR potassium chloride OR potassium chloride, potassium chloride CR, sodium chloride 0.9% Diagnostic Workup: I reviewed pertinent Laboratory results, Radiographic results, and Other Clinical Notes at the time of today's encounter. Labs: No components found for: LABA1C No components found for: EAG Lab Results Component Value Date NA 136 06/02/2023 K 4.5 06/02/2023 CL 107 06/02/2023 CO2 22 06/02/2023 BUN 17 06/02/2023 CREATININE 0.83 06/02/2023 GLUCOSE 111 (H) 06/02/2023 CALCIUM 7.9 (L) 06/02/2023 No results found for: CHLPL, CHOL No results found for: TRIG No results found for: HDL No results found for: LDLCALC No results found for: VLDL No results found for: CHOLHDLRATIO No results found for: [id number] No results found for: TSH, A8HVQNZ, W8SUOFL, THYROIDAB Radiology reportsas per the Radiologist Radiology: POCT glucose meter Result Date: 06/01/2023 [facility]formed by: [facility], [address] [place] [id number] CLIA ID: [id number] POCT glucose meter Result Date: 06/01/2023 Performed by: [employer] [facility], [address] [place] [id number] CLIA ID: [id number] POCT glucose meter Result Date: 06/01/2023 Performed by: [facility], [address] [place] [id number] CLIA ID: [id number] POCT glucose meter Result Date: 06/01/2023 Performed by: [facility] [employer] [facility], [address] [place] [id number] CLIA ID: [id number] POCT glucose meter Result Date: 06/01/2023 Performed by: [facility] [employer] [facility], [address] [place] [id number] CLIA ID: [id number] POCT glucose meter Result Date: 06/01/2023 Performed by: [facility], [address] [place] [id number] CLIA ID: [id number] Transesophageal echocardiogram (PAM) with contrast and 3D PRN Result Date: 06/01/2023 Left Ventricle: Left ventricle size is normal. Normal wall thickness. Normal left ventricular systolic function. The EF by visual approximation is 60%. Normal wall motion. Right Ventricle: Right ventricle size is normal. Normal systolic function. Left Atrium: No left atrial appendage thrombus noted. No significant valvular abnormalities. POCT glucose meter Result Date: 06/01/2023 Performed by: [employer] [facility], [address] [place] [id number] CLIA ID: [id number] POCT glucose meter Result Date: 06/01/2023 Performed by: [employer] [facility], [address] [place] [id number] CLIA ID: [id number] XR chest 1 view Result Date: 06/01/2023 Patient Name: SYLVESTER LACY : 1960 Exam Date/Time: 06/01/2023 14:35 Procedure: XR CHEST 1 VIEW Ordering Provider: LOPES ANDREW Reason For Exam: Post op open heart surgery EXAMINATION: CHEST RADIOGRAPH (SINGLE VIEW AP OR PA) Clinical History: Post op open heart surgery Comparison: Chest CT 05/31/2023 RESULT: See impression Lines, tubes, and devices: Interval placement of endotracheal tube terminating 2 cm by the pavel. Interval placement of NG/OG tube which extends below the diaphragm and below the field of view. Interval placement of right IJ approach pulmonary artery catheter with tip in the pulmonary outflow tract. Interval placement of bilateral chest tubes terminating near the apex on the right and lung base on the left. A mediastinal drain is not visualized though may be obscured by multiple overlying lines. Retained epicardial pacing wires. Lungs and pleura: No consolidation. No sizable pleural effusion or pneumothorax. Cardiomediastinal silhouette:Prominent cardiac silhouette though may be exaggerated by technique. Postoperative changes of median sternotomy for CABG. Other: Degenerative changes of the spine and acromioclavicular joints. Report Dictated on Electronically Signed By: Marcelino Anglin MD Electronically Signed Date/Time: 06/01/2023 2:40 PM EST ECG 12 lead Sinus rhythm Borderline left axis deviation POCT glucose meter Result Date: 06/01/2023 Performed by: [facility], [address] [place] [address] CLIA ID: [id number] CT chest wo IV contrast Result Date: 06/01/2023 [facility] Name[facility] 1960 [id number] Exam Date/Time: 05/31/2023 16:53 Procedure: CT CHEST WO IV CONTRAST Ordering Provider: LOPES ANDREW Reason For Exam: assess aorta prior to open heart surgery CT CHEST WITHOUT CONTRAST: CLINICAL INDICATION: Open heart surgery. TECHNIQUE: Transaxial sequence from apices through the bases with 1 mm reconstruction interval. Coronal and sagittal reconstructions included. Dose reduction was employed with automated exposure control. COMPARISON: None. FINDINGS: Lungs/airways: Mild bibasilar atelectasis without evidence of pleural effusion, focal consolidation or pneumothorax. Pulmonary nodules: No discrete pulmonary nodules. Lower neck, lymph nodes, and mediastinum: The visualized thyroid gland is unremarkable. No mediastinal, hilar, or axillary lymphadenopathy based on size criteria. Trace hiatal hernia. Heart, pericardium, and thoracic vessels: The thoracic aorta is normal in caliber with mild atherosclerotic calcifications. Please note the aorta is approximately 2.3 cm posterior to the sternum at the level the aortic arch which is the closest proximity. The pulmonary artery is normal in size. The heart is normal in size without evidence of pericardial effusion. Severe coronary artery calcifications. (Please note the study is not tailored for coronary artery evaluation.) Upper abdomen: No abnormality in the visualized upper abdomen. Bones and soft tissues: The soft tissues are unremarkable. No suspicious osseous lesions. Mild multilevel discogenic degenerative changes. The aorta is approximately 2.3 cm posterior to the sternum at the level of the aortic arch which is the closest proximity. There are mild atherosclerotic calcifications of the aorta without aneurysmal dilatation. Additional findings as described. Report Dictated on Electronically Signed By: Mitch Pierson MD Electronically Signed Date/Time: 06/01/2023 9:26 AM EST ECG 12 lead Sinus rhythm Left axis deviation Vascular US palmar arch evaluation Result Date: 05/31/2023 There is diminished right PPG waveforms with radial artery compression indicative of incomplete arch. There are no changes to left PPG signals with radial artery compression indicative of a complete arch. ECG 12 lead Sinus rhythm Left axis deviation History/Other: Past Medical History: Past Medical History: Diagnosis Date Atherosclerosis of coronary artery Hay fever Hemorrhoids History of alcohol abuse History of inferior wall myocardial infarction History of pulmonary embolism Hyperlipidemia Hypertension Mucous cyst of digit of hand NSVT (nonsustained ventricular tachycardia) (HCC) Past Surgical History: Past Surgical History: Procedure Laterality Date CORONARY STENT PLACEMENT 2008 Allergy(ies): No Known Allergies Family History: Family History Problem Relation Name Age of Onset Diabetes Mother Social History: Social History Tobacco Use Smoking status: Former Packs/day: 1.50 Years: 30.00 Additional pack years: 0.00 Total pack years: 45.00 Types: Cigarettes Quit date: 2014 Years since quittin.1 Smokeless tobacco: Never Substance Use Topics Alcohol use: Yes Alcohol/week: 12.0 standard drinks of alcohol Types: 12 Cans of beer per week Drug use: Never Portions of the information within this encounter were entered using an electronic dictation system. Best attempts were made to edit/proofread the information prior to note completion. Despite the review of information, some errors may remain. If there are questions related to the information contained within the note please contact the signing physician directly. Associated attestation - Janice Fairchild MD - 06/02/2023 2:55 PM EST I performed a history and physical examination of the patient. I have reviewed the patient's chart including pertinent history, medications, labs, radiology, and other reports. I reviewed the resident/MATTY's note, agree with the documented findings and plan of care (with modifications noted if any), and discussed the management plan. Pt is doing well. Tolerated a full meal. No n/v. Some chest discomfort. No SOB. BG stable overnight, off insulin drip now. Only required minimal insulin yesterday. Adult diet Regular; Low Sodium (2 gm); 5 carb choices (75 gm/meal) Estimated Creatinine Clearance: 111.3 mL/min (by C-G formula based on SCr of 0.83 mg/dL). BP 118/77 Pulse 81 Temp 36.6 C (97.9 F) (Temporal) Resp 16 Ht 5' 9 (1.753 m) Wt 242 lb 4.6 oz (110 kg) SpO2 96% BMI 35.78 kg/m awake, not in distress, RRR, chest incision intact, +chest tubes, abdomen soft, non-tender, no edema, no focal deficits. Dx: Prediabetes/stress hyperglycemia Severe MV-CAD s/p CABG Unstable angina Obesity Body mass index is 35.29 kg/m . HTN HLP Plan: - will transition to subcutaneous insulin today with Humalog SS - continue appropriate blood glucose monitoring - carb controlled diet - discussed postop hyperglycemia management and goals of therapy - patient will unlikely require any pharmacotherapy on discharge for hyperglycemia - discussed need for lifestyle modification - will follow Total time 35 minutes which include review of records, counseling, management, and coordination of care as documented in note. Images from the original note were not included. Cardiothoracic Surgery/[facility] Progress Note PATIENT NAME: Sylvester Lacy DATE: 06/02/23 HPI: 62 y.o. 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 Pmhx including RCA and PDA stents in 2008, HTN, Hx of NSVT, Hx of PE, former tobacco use and current ETOH use. He was see in OP setting 05/31/23 and noted to have unstable angina with palpitations and he was direct admitted for urgent CABG. Preoperative testing was completed and he consented to surgical revascularization. Of note patient lives alone at home. 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 Cardiac cath showed 90% D1, 90% D2, 80% mLAD, 90% ostial OM1, 80% mCirc, 90% mRCA Surgery: 05/31/23: CABGx5 (CAMPBELL to LAD, Free left radial to OM2, SVG to right pDA, SVG to Diag1, SVG to Diag2) left radial harvest R leg EVH and PAM with Dr. Huang Interval History: 06/01/23: POD #1 Pt sitting up in bed still on 1L NC oxygen, BP has been borderline low and the patient has been off and on Levophed currently at 0.01, other hemodynamics are stable. Review of Systems Constitutional: Negative for diaphoresis, fatigue and fever. Respiratory: Negative for cough, shortness of breath and wheezing. Cardiovascular: Negative for chest pain, palpitations and leg swelling. Gastrointestinal: Negative for abdominal distention, constipation and diarrhea. Skin: Negative for color change, pallor and rash. Objective: CT output cc/24hrs: 620 UO cc/24hrs:2.2L Last BM Date: 05/31/23 A-line: Arterial Line BP 1: 92/51 Invasive Hemodynamic Monitoring Blood Temperature: 36.7 C (98.1 F) PAP: 33/15 PAP (Mean): 22 mmHg CVP (mmHg): 8 mmHg CO (L/min): 6.12 L/min CI (L/min/m2): 2.76 L/min/m2 Vitals: BP: 97/54, MAP (mmHg): 69, BP Method: Arterial line Heart Rate: 75 Resp: 16 Temp: 36.7 C (98.1 F), Temp Source: Core BMI (Calculated): 35.28 Pacer Wires: Set to back up CXR: BMP: Recent Labs 05/31/23 1501 06/01/23 1245 06/02/23 0004 NA 137 139 136 K 4.0 4.3 4.5 CL 103 109* 107 CO2 28 23 22 BUN 12 14 17 CREATININE 0.75 0.79 0.83 CALCIUM 9.4 8.7 7.9* MG 2.0 2.9* 2.2 PHOS 3.2 3.2 -- CBC: Recent Labs 05/31/23 1501 06/01/23 1245 06/02/23 0004 WBC 5.3 5.6 8.1 HGB 13.4 10.4 8.9* 9.8* HCT 40.3 27.1* 29.7* PLT 242 136* 146 MCV 87.2 88.9 87.9 RDW 14.0 14.2 14.2 INR: Recent Labs 05/31/23 1512 06/01/23 1245 06/02/23 0004 INR 1.0 1.5* 1.2* Physical Exam Cardiovascular: Rate and Rhythm: Regular rhythm. Heart sounds: Normal heart sounds. No murmur heard. No friction rub. No S4 sounds. Arteriovenous access: Right arteriovenous access is present. Pulmonary: Effort: Pulmonary effort is normal. Skin: General: Skin is warm and dry. Capillary Refill: Capillary refill takes less than 2 seconds. Findings: Bruising and ecchymosis present. Comments: MSCI Intact RIJ [place] Right EVH Left radial artery harvest Neurological: Mental Status: He is alert. Psychiatric: Behavior: Behavior is cooperative. Assessment: MVCAD s/p CABGx5 05/31/23 Hx NSVT HLD HTN ETOH use Former Tobacco use Post operative Pulm Management: Normal Post-operative Course Post-operative Atrial Fibrillation: []Yes [x] No Plan: Patient Status: ICU GDMT for CAD with EF preserved - asa - Crestor Hold BP meds currently borderline hypotensive DC oxygen Up to chair Renew Toradol Hold home ranexa, lisinopril and coreg DC art line and swan once off of Levophed PT/OT: TBD Pulmonary hygiene: IS and Acapella GI prophy: PO protonix DVT prophy:TEDs, SCDs, and Heparin SubQ Disposition: TBD Central Line: [x]Yes [] No Arterial Line: [x]Yes [] No Isaac: [x]Yes [] No Restraints: []Yes [x] No Patient discussed and plan of day developed from multidisciplinary rounds between Cardiothoracic Surgery (Cardiothoracic Surgeon, MATTY) and Critical Care Attending Cardiac Core Medications: ASA and Statin EF: 55% Blood Conservation: None noted in post-operative period Public Health Training Assistant: MIESHA Yuan with [facility] Associated attestation - Susan Covington DO - 06/02/2023 5:39 PM EST I have personally performed a [id number] diagnostic evaluation on this patient on date of service 06/02/23. History, labs, imaging studies, and electronic medical record have been reviewed by me. This note documented by the []pump house technician [x]MATTY reflects my history, exam, and medical decision making. I have reviewed and agree with the care plan. Changes were made in the orders as necessary. ROS documentation was reviewed and negative unless otherwise stated in HPI. Assessment: -POD 1 CABGx5 for mvCAD -acute post op pulmonary management: expected course -acute post op blood loss anemia -HTN/HLD -hx NVST -EtOH use -obesity -hypocalcemia Plan: -successfully extubated yesterday, doing well on 3L NC, cont to wean. Encourage pulm toilet, IS/acapella. Optimize pain control -ASA, statin. Hold anti-HTNs as patient on low dose levo-->wean as able. Plan to dc art line and [place] once off levophed -nitroglycerin gtt transitioned to [facility], will need CCBx30 days for radial artery harvest -monitor chest tube output, CBC/coags closely. No signs of major bleeding currently -insulin gtt per protocol Total critical care time for this patient with life-threatening unstable organ failure, including direct patient contact, management of life support systems, review of data including imaging and labs, and discussions with other team members and physicians at least 35 minutes so far today, excluding procedures. 06/01/23 1557 Patient Parameters Heart Rate 91 SpO2 96 % Settings Vent Mode SPONT Spontaneous Type TC FiO2 (%) 50 % PEEP/CPAP (cm H2O) 8 cm H20 Sensitivity 3 Expiratory Sensitivity (%) 25 % % Support 100 % Readings PIP Observed (cm H2O) 10 cm H2O MAP (cm H2O) 8.9 Resp Rate Observed 16 Vt (observed, mL) 392 mL Minute Ventilation (L/min) 5.82 L/min I:E Ratio 1:3.2 Plateau Pressure (cm H2O) 0 cm H2O Dynamic Compliance (L/cm H2O) 200 L/cm H2O Static Compliance (L/cm H2O) 0 Airway Resistance 2.2 Total PEEP (cm H2O) 0 cm H2O Alarms High RR Alarm 30 breaths per minute Insp Pressure High (cm H2O) 40 cm H2O MV High (L/min) 18 L/min MV Low (L/min) 3 L/min Vt High (jackie) (mL) 1000 mL Vt Low (jackie) (mL) 200 mL Vt High (spont) (mL) 1000 mL Vt Low (spont) (mL) 200 mL High VTi 1170 Apnea Interval (sec) 20 seconds Spontaneous Breathing Trial Weaning Start Time 1528 Weaning Tidal Volume 338 mL Weaning Respiratory Rate 17 Spontaneous Minute Volume (MV) 9.46 Negative Inspiratory Force (NIF) -22 Total RSBI 50 Weaning Tolerance Good Weaning Stop Time 1557 Weaning Duration (min) 30 Spontaneous Breathing Trial (SBT) Outcome SBT Passed Images from the original note were not included. [facility]: Critical Care Consultation Note Date: 06/01/23 PATIENT NAME: Sylvester Lacy : 1960 (62 y.o.) Reason for Consult: Critical Care & Vent Management HPI: 62 y.o. 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 Pmhx including RCA and PDA stents in 2008, HTN, Hx of NSVT, Hx of PE, former tobacco use and current ETOH use. He was see in OP setting 05/31/23 and noted to have unstable angina with palpitations and he was direct admitted for urgent CABG. Preoperative testing was completed and he consented to surgical revascularization. Of note patient lives alone at home. 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 Surgery: 05/31/23: CABGx5 (CAMPBELL to LAD, Free left radial to OM2, SVG to right pDA, SVG to Diag1, SVG to Diag2) left radial harvest R leg EVH and PAM with Dr. Huang Interval History: 06/01/23: POD #0: Patient arrived to the unit, intubated and sedated. Surgical hand off completed below. Surgery Hand Off: Arrival Time in CTVICU: 1:20 Complications/Pertinent Events: none noted Last Paralytic: 1157 Gtts OR report Nitroglycerin: 5 Amicar: 29 Current gtts upon arrival Nitroglycerin: 5 Propofol: 29mcg/kg/min Amicar: 29 Devices: Epicardial wires: yes [x] no [] V wires Blood Transfusions Intra Op: yes [] no [x] CellSaver: 600cc Vital Signs including Cardiac Numbers (if indicated) at Conclusion of Hand-off OR CTVICU CO 4.6 8.4 CI 2.1 3.78 CVP 12 12 SVR 1063 676 PAP 23/01 Additional Interventions/Misc during Handoff None noted Review of Systems Unable to perform ROS: Intubated Allergies: Patient has no known allergies. Past Medical History: has a past medical history of Atherosclerosis of coronary artery, Hay fever, Hemorrhoids, History of alcohol abuse, History of inferior wall myocardial infarction, History of pulmonary embolism, Hyperlipidemia, Hypertension, Mucous cyst of digit of hand, and NSVT (nonsustained ventricular tachycardia) ([facility]). Past Surgical History: has a past surgical history that includes Coronary stent placement (2008). Social History: reports that he quit smoking about 9 years ago. His smoking use included cigarettes. He has a 45 pack-year smoking history. He has never used smokeless tobacco. He reports current alcohol use of about 12.0 standard drinks of alcohol per week. He reports that he does not use drugs. Family History: family history includes Diabetes in his mother. Medications: Prior to Admission medications Medication Sig Start Date End Date Taking? Authorizing Provider aspirin 81 MG EC tablet Take 81 mg by mouth daily. Historical Provider, carvedilol (Coreg) 12.5 MG tablet Take 6.25 mg by mouth in the morning and 6.25 mg in the evening. Take with meals. Historical Provider, cholecalciferol 25 MCG (1000 UT) capsule Take 25 mcg by mouth daily. Historical ProviderMD ibuprofen 800 MG tablet Take 800 mg by mouth 3 times daily as needed for mild pain (1-3). Historical ProviderMD isosorbide mononitrate ER (Imdur) 60 MG 24 hr tablet Take 60 mg by mouth daily. Do not crush or chew. Historical Provider, Krill Oil 500 MG capsule Take 1 capsule by mouth daily. Historical Provider, lisinopril 5 MG tablet Take 2.5 mg by mouth daily. Historical Provider, Multiple Vitamin (multivitamin) capsule Take 1 capsule by mouth daily. Historical Provider, nitroglycerin (Nitrostat) 0.[address] 0.4 mg under the tongue every 5 minutes as needed for chest pain. Historical ProviderMD ranolazine (Ranexa) 500 MG 12 hr tablet Take 1,000 mg by mouth 2 times daily. Do not crush, chew, or split. Historical Provider, rosuvastatin (Crestor) 10 MG tablet Take 10 mg by mouth daily. Historical Provider, zinc gluconate 50 MG tablet Take 50 mg by mouth daily. Historical Provider, coenzyme Q-10 50 MG capsule Take 200 mg by mouth daily. 05/31/23 Historical Provider, Hqjjggasgha-Fhzdmikvw-Kjhdvwik 250-200-116.67 MG capsule Take 1 tablet by mouth daily. 05/31/23 Historical Provider, meclizine (Antivert) 25 MG tablet Take 25 mg by mouth 3 times daily as needed for dizziness. 05/31/23 Historical Provider, promethazine (Phenergan) 25 MG tablet Take 25 mg by mouth every 6 hours as needed for nausea or vomiting. 05/31/23 Historical Provider, Objective: BP 156/88 Pulse 73 Resp 18 Ht 5' 9 (1.753 m) Wt 239 lb 1.6 oz (108 kg) SpO2 94% BMI 35.31 kg/m Intake/Output Summary (Last 24 hours) at 06/01/2023 1330 Last data filed at 06/01/2023 1249 Gross per 24 hour Intake 661 ml Output 1450 ml Net -789 ml Physical Exam Constitutional: Interventions: He is sedated and intubated. HENT: Mouth/Throat: Comments: ETT in place Neck: Vascular: No JVD. Trachea: Trachea normal. Cardiovascular: Rate and Rhythm: Normal rate and regular rhythm. Pulses: Radial pulses are 2+ on the right side and 2+ on the left side. Heart sounds: Normal heart sounds, S1 normal and S2 normal. Pulmonary: Effort: He is intubated. Breath sounds: Decreased breath sounds present. Abdominal: General: Bowel sounds are absent. Musculoskeletal: Right lower leg: No edema. Left lower leg: No edema. Skin: Findings: Bruising and ecchymosis present. Comments: Surgical dressing dry and intact Diagnostics: Reviewed in EMR Labs: Reviewed in EMR BMP: Recent Labs 05/31/23 1501 NA 137 K 4.0 CL 103 CO2 28 BUN 12 CREATININE 0.75 CALCIUM 9.4 MG 2.0 PHOS 3.2 CBC: Recent Labs 05/31/23 1501 06/01/23 1245 WBC 5.3 -- HGB 13.4 10.4 HCT 40.3 -- PLT 242 -- MCV 87.2 -- RDW 14.0 -- INR: Recent Labs 05/31/23 1512 INR 1.0 Assessment: MVCAD s/p CABGx5 05/31/23 Hx NSVT HLD HTN ETOH use Former Tobacco use Post operative Pulm Management: Normal Post-operative Course Post-operative Atrial Fibrillation: []Yes [x] No Acute blood loss anemia/consumptive Plan: - Nitro gtt at fix dose due to radial artery harvest Will need CCB for 30 days - Sugamadex - Hemodynamic goals: CI >2.0, SBP 90-130 mmHg, MAP 60-75 - PRN Hypertension Cardene gtt -PRN Hypotension CI >2.0 euvolemic with low SVR- Levophed gtt CI <2.0 euvolemic - Epinephrine gtt - Temp pacing wires/mode: v wires - Chest tubes: no air leak or fluctuation noted, suction - Cefazolin - surgical prophy for 5 doses total - Wean to Extubation: Arrival Time in unit: 1:20 - Vent: ACVC+, TV 6ml/kg/min, rate 12, fio2 100% PEEP 8 VAP protocol: HOB >30 degrees; peridex BID - Insulin gtt; per endo/protocol - GI prophy: Protonix IV daily Patient treatment plan and plan of care discuss with Dr. Susan Covington Associated attestation - Susan Covington DO - 06/01/2023 4:05 PM EST I have personally performed a [id number] diagnostic evaluation on this patient on date of service 06/01/23. History, labs, imaging studies, and electronic medical record have been reviewed by me. This note documented by the []pump house technician [x]MATTY reflects my history, exam, and medical decision making. I have reviewed and agree with the care plan. Changes were made in the orders as necessary. ROS documentation was reviewed and negative unless otherwise stated in HPI. Assessment: -POD 0 CABGx5 for mvCAD -acute post op pulmonary management: expected course -acute post op blood loss anemia/consumptive coagulopathy -HTN/HLD -hx NVST -EtOH use -obesity Plan: -cont mech vent, wean as able. Already received Sugammadex. Currently agitated-->start Precedex. SBT once more calm. -cont nitroglycerin gtt for radial artery harvest (needs CCB x30 days) -monitor chest tube output, CBC/coags closely. No signs of major bleeding currently -insulin gtt per protocol Total critical care time for this patient with life-threatening unstable organ failure, including direct patient contact, management of life support systems, review of data including imaging and labs, and discussions with other team members and physicians at least 35 minutes so far today, excluding procedures. Per pt his PCP is aware he is here documented in this encounter [facility] 06-06-2023 Miscellaneous Notes Spoke with patient at bedside, discussed CAMPOS liaison currently working with [facility] [place] auth for [place] care. No further discharge needs expressed. Patient Choice Patient Name: SYLVESTER LACY Date of : 1960 All Providers Sent Referral Name: [facility] (formerly [facility]) Phone: [phone] Address: [facility] [facility] [address] [place] [address] Name: [facility] [place] Phone: [phone] Address: [address], [address] [place] [address] Name: [facility] ([facility]) Address: [address] [place] [address] Name: Geovanni Chen [place] Address: [address] [place] [address] Name: [facility] Phone: [phone] Address: [address], [address] [place] [address] Name: [facility] Phone: [phone] Address: [address] [place] [address] Name: [facility] Phone: [phone] Address: [address] [place] [address] Name: [facility] Address: [address] [place] [address] Name: [facility] [place] ([facility] Offices) Phone: [phone] Address: [address], [place] [address] Name: [facility] Address: [address] [place] [address] Name: [facility] Address: [address] [address] Name: [facility] Phone: [phone] Address: [address] [place] [address] Name: [facility] Phone: [phone] Address: [address] [place] [address] Name: [facility] Phone: [phone] Address: [address] [place] [address] Care Managment Initial Assessment Date: 06/02/2023 Patient Name: Sylvester Lacy : 1960 Patient Information Source of Information: Patient Cognition/Language: WFL - Within Functional Limits Permission given to speak with patient lead generation representative/caregiver as indicated: Yes Confirmation of Payer with patient/family: Yes Payer Name: [facility] [place]: Yes () Confirmation of Primary Care Physician: Confirmed PCP Name: Dr. Engle Seen in last 2 years?: Yes Primary Caregiver: Self If assistance needed, confirmed caregiver ready, willing and able to care for patient at discharge: Confirmed with: Living Arrangements Current Residence: House Number of Floors 1 Number of Entry Steps: 1 Bed/Bath Levels: Both first floor Facility: Facility Name: Plan to Return: Lives with: Alone Support Systems: Family members, Friends/neighbors Activities of Daily Living Ambulation: Independent Bathing/Dressing: Independent Elimination/Continence/Toileting: Independent Feeding: Independent Who Assists with Activities of Daily Living: Instrumental Activities of Daily Living Prescription Coverage: No Pharmacy Used: [facility] [place] Medication Management: Independent Transportation/Shopping: Independent Transportation Mode: Car Needs Assistance with Transportation at Discharge: No Meal Preparation: Independent Laundry/Cleaning: Independent Finances/Bill Paying: Independent Communication: Independent Types of Care Services/Equipment Utilized Care Services: Dialysis Type: Durable Medical Equipment: Patient's Goal/Discharge Plan Patient expects to be discharged to: SNF Discharge Planning Actions: Continue to follow Patient's Choice Rights and [employer] and Collaborative Relationships Disclosed as Indicated for Post-Acute Care: Interdisciplinary Team Engagement: PT/OT, Home Health Care Social Work Referral for: Additional Information: Patient admitted to CTV ICU s/p CABG x 5 POD # 1. Spoke with patient at bedside, introduced self and role. Patient from home alone, is independent, has PCP but no prescription coverage-uses the [facility] [place], will have a ride home but concerned with home going alone and agreeable to SNF ([place]) if recommended by therapy. Daphne Chou RN Railcar Switchman following case for Discharge Needs. DATE OF PROCEDURE: 06/01/2023 PREOPERATIVE DIAGNOSIS: Coronary artery disease Unstable angina POSTOPERATIVE DIAGNOSIS: Coronary artery disease Unstable angina PROCEDURE: 1. Coronary artery bypass grafting x 5 - Left internal mammary artery to the left anterior descending - Free left radial artery graft to the second obtuse marginal - Saphenous vein graft to the right posterior descending artery - Saphenous vein graft to the first diagonal - Saphenous vein graft to the second diagonal 2. Endoscopic left radial artery harvest 3. Endoscopic vein harvest, right lower extremity SURGEON: Gisella Huang MD TWISTING PRESS OPERATOR: SLY Cruz, CHILO, HIGH RISK OB, BARGE CAPTAIN COMPLICATIONS: None intra-op CONDITION: Stable DESCRIPTION OF PROCEDURE: The patient was prepped and draped in the appropriate manner, having undergone general endotracheal anesthetic in addition to [place] catheter placement, arterial line, and isaac catheter placement. An antibiotic and a beta constance were administered pre-operatively and documented. Incision and conduit harvest/preparation: A midline sternotomy incision was utilized in standard fashion. The sternum was divided with the oscillating saw. The left internal mammary artery was taken down with clips and bovie cauterization. Papaverine was used. The right lower extremity saphenous vein was harvested via the endoscopic approach. The left radial artery was also harvested via the endoscopic approach. The patient was fully heparinized prior to dividing and prepping the mammary. Cannulation and cardiopulmonary bypass: After cannulation, the patient was placed on cardiopulmonary bypass support. Ascending aortic cross-clamp was applied. Antegrade cardioplegia (microplegia) was delivered till the heart was arrested in diastole. Cardioplegia was re-administered every 20 minutes while the ascending aorta was cross clamped. Aortic canula: 21 Fr soft flow angled cannula in distal ascending aorta Venous canula: 29/29 Fr triple stage cannula via right atrial appendage Cardioplegia: Antegrade via cannula in the mid ascending aorta. Coronary artery bypass: Bypasses were performed to the [place] targets using the conduits listed above with 7-0 Prolene distally and 6-0 Prolene proximally to the ascending aorta. The left internal mammary artery was anastomosed to the LAD with 7-0 Prolene. Of note, the epicardial exposed area of the ramus had the stent and an anastomosis could not be performed. The rest of the vessel was intra-myocardial. The first obtuse marginal vessel was intra-myocardial and could not be seen on the epicardial surface. CPB wean and decannulation: The patient was given a dose of warm blood cardioplegia. Valsalva breaths were mechanically administered and the aorta was unclamped. The heart returned to normal sinus rhythm. Pacing wire was placed. The DLP left in place as a root vent. The patient was rewarmed and weaned from cardiopulmonary bypass support without difficulty. Protamine was administered and cannulas were removed without difficulty. Three 24 Fr chasity drains were placed, one in the each pleural space and one in the mediastinum. Closure: Hemostasis was achieved. The sternum and incision were closed with sternal wires, running 0, 2-0 and 4-0 stitches. Dressings applied, and the patient was transferred to the cardiovascular intensive care unit in stable condition. Cardiopulmonary bypass time: 102 minutes Cross clamp time: 115 minutes Intra-op PAM: No significant abnormalities Gisella Huang MD Cardiothoracic Surgery documented in this encounter [facility] 06-06-2023 Note Formatting of this n ote might be different from the original. Spoke with patient at bedside, discussed BETH enriquez currently working with [facility] [place]. No further discharge needs expressed. T [facility] 06-06-2023 Note Formatting of this n ote might be different from the original. Spoke with patient at bedside, discussed BETH enriquez currently working with [facility] [place]. No further discharge needs expressed. T [facility] 06-06-2023 Note Formatting of this n ote might be different from the original. Patient Choice Patient Name: SYLVESTER LACY Date of : 1960 All Providers Sent Referral Name: [facility] [place] ([facility]) Phone: [phone] Address: [facility] [facility] [address] [place] [address] Name: [employer] [facility] Phone: [phone] Address: [address] [place] [address] Name: [facility] Address: [address] [place] [address] Name: [facility] Address: [address] [place] [address] Name: [facility] Phone: [phone] Address: [address] [place] [address] Name: [facility] Phone: [phone] Address: [address] [place] [address] Name: [facility] Phone: [phone] Address: [address] [place] [address] Name: [facility] Address: [address] [place] [address] Name: [facility] (All Offices) Phone: [phone] Address: [address] [address] Name: [facility] Address: [address] [place] [address] Name: [facility] Address: [address] [address] Name: [facility] Phone: [phone] Address: [address] [place] [address] Name: [facility] Phone: [phone] Address: [address] [place] [address] Name: [facility] Phone: [phone] Address: [address] [place] [address] [facility] 06-06-2023 Note Formatting of this n ote might be different from the original. Patient Choice Patient Name: SYLVESTER LACY Date of : 1960 All Providers Sent Referral Name: [facility] [place] [facility]) Phone: [phone] Address: [address] [facility] [address] [place] [address] Name: [facility] [place] Phone: [phone] Address: [address] [place] [address] Name: [facility] Address: [address] [place] [address] Name: [facility] Address: [address] [place] [address] Name: [facility] Phone: [phone] Address: [address] [place] [address] Name: [facility] Phone: [phone] Address: [address] [place] [address] Name: [facility] Phone: [phone] Address: [address] [place] [address] Name: [facility] Address: [address] [place] [address] Name: [facility] (All Offices) Phone: [phone] Address: [address] [address] Name: [facility] Address: [address] [place] [address] Name: [facility] Address: [address] [address] Name: [facility] Phone: [phone] Address: [address] [place] [address] Name: [facility] Phone: [phone] Address: [address] [place] [address] Name: [facility] Phone: [phone] Address: [address] [address] [facility] 06-06-2023 Note Discharge Summary: C ardiothoracic Surgery Sylvester Hehl, 62 y.o., 1960 ADMIT DATE: 05/31/2023 DISCHARGE DATE: 06/06/2023 VISIT STATUS: Admission CODE STATUS: Full Code DISCHARGING SURGEON: Gisella Huang MD, Office Number: [phone] DISCHARGE DIAGNOSES: 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 -Oxycodone for 7 days. -Discharged with isaac. -Urology in [place] referral. On DC, referral received, appointment was to be scheduled on 06/13/33. -Patient may call to reschedule CT Surgery follow up to allow Urology appointment. BMI CLASSIFICATION:Obese (BMI 30.0-39.9) TREATMENT TEAM: Primary Care Physician: Crissy Engle DO Public Health Training Assistant: Dr. Eder Newberry SURGERY: 05/31/23: CABGx5 (CAMPBELL to LAD, Free left radial to OM2, SVG to right pDA, SVG to Diag1, SVG to Diag2) left radial harvest R leg EVH and PAM with Dr. Huang [facility] COURSE: 62 y.o. 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 Pmhx including RCA and PDA stents in 2008, HTN, Hx of NSVT, Hx of PE, former tobacco use and current ETOH use. He was see in OP setting 05/31/23 and noted to have unstable angina with palpitations and he was direct admitted for urgent CABG. Preoperative testing was completed and he consented to surgical revascularization. Of note patient lives alone at home. 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 Patient underwent surgery on 06/01/23. Patient did well post-op, only complication was urinary retention for which a isaac was re-placed and Urology consulted. A referral was placed to Urology in [place] for him to follow up with. He was discharged home on POD#05. DIAGNOSTICS: BP 116/76 (BP Location: Right arm, Patient Position: Lying) Pulse 96 Temp 36.8 ?C (98.2 ?F) (Temporal) Resp 20 Ht 5' 9 (1.753 m) Wt 233 lb 7.5 oz (106 kg) SpO2 93% BMI 34.48 kg/m? Recent Labs 06/04/23 0034 06/04/23 0101 06/05/23 0552 06/06/23 0055 CREATININE 0.70 -- 0.69 0.67 HGB 10.5* -- 11.5* 9.9* PLT 138* -- 192 196 WBC 7.0 -- 6.2 6.0 INR -- 1.0 -- -- NA 139 -- 137 135 K 4.5 -- 4.4 4.4 DISCHARGE MEDICATIONS: Medication List START taking these medications acetaminophen 500 MG tablet Commonly known as: Tylenol Take 2 tablets (1,000 mg) by mouth in the morning and 2 tablets (1,000 mg) at noon and 2 tablets (1,000 mg) before bedtime. amLODIPine 2.5 MG tablet Commonly known as: Norvasc Take 1 tablet (2.5 mg) by mouth daily. Start taking on: June 07, 2023 oxyCODONE 5 MG immediate release tablet Commonly known as: Roxicodone Take 1 tablet (5 mg) by mouth every 6 hours as needed for severe pain (7-10) for up to 7 days. tamsulosin 0.4 MG 24 hr capsule Commonly known as: Flomax Take 1 capsule (0.4 mg) by mouth daily. Start taking on: June 07, 2023 CHANGE how you take these medications carvedilol 12.5 MG tablet Commonly known as: Coreg Take 1 tablet (12.5 mg) by mouth in the morning and 1 tablet (12.5 mg) in the evening. Take with meals. What changed: how much to take rosuvastatin 40 MG tablet Commonly known as: Crestor Take 1 tablet (40 mg) by mouth daily. What changed: medication strength how much to take CONTINUE taking these medications aspirin 81 MG EC tablet cholecalciferol 25 MCG (1000 UT) capsule Generic drug: cholecalciferol ibuprofen 800 MG tablet Krill Oil 500 MG capsule multivitamin capsule zinc gluconate 50 MG tablet STOP taking these medications isosorbide mononitrate ER 60 MG 24 hr tablet Commonly known as: Imdur lisinopril 5 MG tablet nitroglycerin 0.4 MG SL tablet Commonly known as: Nitrostat ranolazine 500 MG 12 hr tablet Commonly known as: Ranexa Where to Get Your Medications These medications were sent to [facility] [address] [place] [address] [address] amLODIPine 2.5 MG tablet carvedilol 12.5 MG tablet oxyCODONE 5 MG immediate release tablet rosuvastatin 40 MG tablet tamsulosin 0.4 MG 24 hr capsule Information about where to get these medications is not yet available Ask your nurse or doctor about these medications acetaminophen 500 MG tablet ACTIVITY: activity as tolerated, strict post-sternotomy/post-thoracotomy sternal precautions as outlined in the home going instructions, and no driving or operating heavy machinery until released by provider STRICT POST-STERNOTOMY/POST-THORACOTOMY PRECAUTIONS OUTLINED IN THE HOME GOING INSTRUCTIONS FOLLOW UP: CT Surgery 06/14/23 at 10:30AM. [address] [place] [address] [address] [address] Dept: [phone] Dept CORE CARDIAC MEDICATIONS PRESCRIBED AT DISCHARGE: Beta-constance prescribed at discharge: [x] Ye (more content not included)... [facility] 06-06-2023 Hospital course Narrative Images from the original note were not included. 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 -Oxycodone for 7 days. -Discharged with isaac. -Urology in [place] referral. On DC, referral received, appointment was to be scheduled on 06/13/33. -Patient may call to reschedule CT Surgery follow up to allow Urology appointment. BMI CLASSIFICATION:Obese (BMI 30.0-39.9) TREATMENT TEAM: Primary Care Physician: Crissy Engle DO Public Health Training Assistant: Dr. Eder Newberry SURGERY: 05/31/23: CABGx5 (CAMPBELL to LAD, Free left radial to OM2, SVG to right pDA, SVG to Diag1, SVG to Diag2) left radial harvest R leg EVH and PAM with Dr. Aziken HOSPITAL COURSE: 62 y.o. 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 Pmhx including RCA and PDA stents in 2008, HTN, Hx of NSVT, Hx of PE, former tobacco use and current ETOH use. He was see in OP setting 05/31/23 and noted to have unstable angina with palpitations and he was direct admitted for urgent CABG. Preoperative testing was completed and he consented to surgical revascularization. Of note patient lives alone at home. 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 Patient underwent surgery on 06/01/23. Patient did well post-op, only complication was urinary retention for which a isaac was re-placed and Urology consulted. A referral was placed to Urology in [place] for him to follow up with. He was discharged home on POD#05. DIAGNOSTICS: BP 116/76 (BP Location: Right arm, Patient Position: Lying) Pulse 96 Temp 36.8 C (98.2 F) (Temporal) Resp 20 Ht 5' 9 (1.753 m) Wt 233 lb 7.5 oz (106 kg) SpO2 93% BMI 34.48 kg/m Recent Labs 06/04/23 0034 06/04/23 0101 06/05/23 0552 06/06/23 0055 CREATININE 0.70 -- 0.69 0.67 HGB 10.5* -- 11.5* 9.9* PLT 138* -- 192 196 WBC 7.0 -- 6.2 6.0 INR -- 1.0 -- -- NA 139 -- 137 135 K 4.5 -- 4.4 4.4 DISCHARGE MEDICATIONS: Medication List START taking these medications acetaminophen 500 MG tablet Commonly known as: Tylenol Take 2 tablets (1,000 mg) by mouth in the morning and 2 tablets (1,000 mg) at noon and 2 tablets (1,000 mg) before bedtime. amLODIPine 2.5 MG tablet Commonly known as: Norvasc Take 1 tablet (2.5 mg) by mouth daily. Start taking on: June 07, 2023 oxyCODONE 5 MG immediate release tablet Commonly known as: Roxicodone Take 1 tablet (5 mg) by mouth every 6 hours as needed for severe pain (7-10) for up to 7 days. tamsulosin 0.4 MG 24 hr capsule Commonly known as: Flomax Take 1 capsule (0.4 mg) by mouth daily. Start taking on: June 07, 2023 CHANGE how you take these medications carvedilol 12.5 MG tablet Commonly known as: Coreg Take 1 tablet (12.5 mg) by mouth in the morning and 1 tablet (12.5 mg) in the evening. Take with meals. What changed: how much to take rosuvastatin 40 MG tablet Commonly known as: Crestor Take 1 tablet (40 mg) by mouth daily. What changed: medication strength how much to take CONTINUE taking these medications aspirin 81 MG EC tablet cholecalciferol 25 MCG (1000 UT) capsule Generic drug: cholecalciferol ibuprofen 800 MG tablet Krill Oil 500 MG capsule multivitamin capsule zinc gluconate 50 MG tablet STOP taking these medications isosorbide mononitrate ER 60 MG 24 hr tablet Commonly known as: Imdur lisinopril 5 MG tablet nitroglycerin 0.4 MG SL tablet Commonly known as: Nitrostat ranolazine 500 MG 12 hr tablet Commonly known as: Ranexa Where to Get Your Medications These medications were sent to [facility] [address] [place], [place] [id number] amLODIPine 2.5 MG tablet carvedilol 12.5 MG tablet oxyCODONE 5 MG immediate release tablet rosuvastatin 40 MG tablet tamsulosin 0.4 MG 24 hr capsule Information about where to get these medications is not yet available Ask your nurse or doctor about these medications acetaminophen 500 MG tablet ACTIVITY: activity as tolerated, strict post-sternotomy/post-thoracotomy sternal precautions as outlined in the home going instructions, and no driving or operating heavy machinery until released by provider STRICT POST-STERNOTOMY/POST-THORACOTOMY PRECAUTIONS OUTLINED IN THE HOME GOING INSTRUCTIONS FOLLOW UP: CT Surgery 06/14/23 at 10:30AM. [address] [place] [id number] Dept: [phone] Dept CORE CARDIAC MEDICATIONS PRESCRIBED AT DISCHARGE: Beta-constance prescribed at discharge: [x] Yes [] No - reason why: ACEi or ARB prescribed at discharge: [] Yes [x] No - reason why: On CCB for 30 days. Statin prescribed at discharge: [x] Yes [] No - reason why: Anti-platelet agent prescribed at discharge: [] Yes [x] No - reason why: Not indicated. If yes, type: Post-operative Atrial Fibrillation: []Yes [x] No OAC: [] Yes [x] No Initial Post-op RBC transfusion date/reason: none noted during post-operative course Chronic Lung Disease: None per bedside spirometry DISPOSITION: Home with Home Assist A copy of the discharge instructions which included the medications at the time of discharge, follow-up appointments, phone numbers to call with questions, activity, restrictions, and limitations was provided to the patient or their family. We greatly appreciate the opportunity to participate in the care of your patient. If you have any additional questions or concerns regarding any aspects of their care or management please do not hesitate to contact us. SIGNED: JOSE DANIEL Rose CNP 06/06/2023, 9:57 AM documented in this encounter [facility] 06-06-2023 Hospital Discharg e instructions JOSE DANIEL Thornton CNP - 06/06/2023 8:01 AM EDT Images from the original note were not included. [facility] Medical Group: Cardiothoracic Surgery [address] [place] [address]. [facility] [address] [facility] #[phone] Notify us if the following occur - Increased tenderness, redness, or swelling of your incisions. - Any drainage from the chest incision (clear or pink drainage from the leg incision or chest tube site is common). - Angina symptoms like those you had before surgery - Sharp pain in chest, neck or shoulder that is worse when taking a deep breath - Persistent fever greater than 100 degrees F or 38 degrees C - Flu-like symptoms-chills, aches, fever, increased fatigue - Heart rate faster than 150 beats/minute with shortness of breath or new irregular heart rate. - Any unusual bleeding - Shortness of breath not relieved by rest - Weight gain of three pounds in one day or five pounds over one week Activity Instructions - Sternal Precautions for 6 weeks - Do not lift, push, or pull anything heavier than 10 pounds for 6 weeks (a gallon of milk weighs 8 pounds). - Do not drive until you have been given permission by your surgeon/provider and until you are off narcotic/opioid pain medication - It is ok to sleep on your side if you prop pillows to support your back. Do not sleep on your stomach. - Walk at least 4 times a day, start with 5 minute intervals, increase minutes walked each day. Do not walk on a treadmill - Balance rest and activity during your recovery - Use the stairs, but go slowly, Use the handrail for balance but do not pull yourself up with your arms. - Shower daily. Do not take your heart medication right before you shower. You could become lightheaded from your blood pressure and heart medication. Always have someone nearby to assist you. - Do not take a tub bath or use a hot tub until all incision are completely healed (no scab). - Put matilde hose on in AM and remove at bedtime. Elevate your feet above level of heart when you are sitting. - Cough and deep breathe and use incentive spirometer every hour (10x/hour while awake for two weeks). Other Instructions - Weigh yourself daily at the same time (after you urinate but before breakfast) - Keep a record of your daily weight, and bring to your first post op office visit - Take all medications as prescribed. Bring all your medication bottles to any follow up office visit Incision Care - Wash your sternal incision with anti-bacterial soap and warm water. Pat dry, and leave open to air. Do not use any lotions, or powders, or ointments. documented in this encounter [facility] 06-05-2023 Note Received referral an d reviewed chart. Phase II Cardiac Rehab Referral discussed with Sylvester Lacy. Patient prefers cardiac rehab at [facility]. Given information on cardiac rehab at preferred location. [facility] 06-05-2023 Consult note Formatting of th is note might be different from the original. Received referral and reviewed chart. Phase II Cardiac Rehab Referral discussed with Sylvester Lacy. Patient prefers cardiac rehab at [facility]. Given information on cardiac rehab at preferred location. [facility] 06-05-2023 Consult note Formatting of th is note might be different from the original. Received referral and reviewed chart. Phase II Cardiac Rehab Referral discussed with Sylvester Lacy. Patient prefers cardiac rehab at [facility]. Given information on cardiac rehab at preferred location. Associated Order(s): IP WOUND CARE NURSE CONSULT TO EVAL Images from the original note were not included. [facility] Wound Care CONSULT Note Sylvester Lacy AGE: 62 y.o. GENDER: male : 1960 Subjective: HISTORY of PRESENT ILLNESS HPI Sylvester Lacy is a 62 y.o. male who presents for a wound consult. HPI: 62 y.o. 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 Pmhx including RCA and PDA stents in 2008, HTN, Hx of NSVT, Hx of PE, former tobacco use and current ETOH use. He was see in OP setting 05/31/23 and noted to have unstable angina with palpitations and he was direct admitted for urgent CABG. Preoperative testing was completed and he consented to surgical revascularization. Of note patient lives alone at home. 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 Wound Care consulted for multiple areas. Patient states he had a reaction to the electrode pads. PAST MEDICAL HISTORY Past Medical History: Diagnosis Date Atherosclerosis of coronary artery Hay fever Hemorrhoids History of alcohol abuse History of inferior wall myocardial infarction History of pulmonary embolism Hyperlipidemia Hypertension Mucous cyst of digit of hand NSVT (nonsustained ventricular tachycardia) (HCC) PAST SURGICAL HISTORY Past Surgical History: Procedure Laterality Date CORONARY STENT PLACEMENT 2008 FAMILY HISTORY Family History Problem Relation Name Age of Onset Diabetes Mother SOCIAL HISTORY Social History Tobacco Use Smoking status: Former Packs/day: 1.50 Years: 30.00 Additional pack years: 0.00 Total pack years: 45.00 Types: Cigarettes Quit date: 2014 Years since quittin.1 Smokeless tobacco: Never Substance Use Topics Alcohol use: Yes Alcohol/week: 12.0 standard drinks of alcohol Types: 12 Cans of beer per week Drug use: Never ALLERGIES No Known Allergies MEDICATIONS No current facility-administered medications on file prior to encounter. Current Outpatient Medications on File Prior to Encounter Medication Sig Dispense Refill aspirin 81 MG EC tablet Take 81 mg by mouth daily. carvedilol (Coreg) 12.5 MG tablet Take 6.25 mg by mouth in the morning and 6.25 mg in the evening. Take with meals. cholecalciferol 25 MCG (1000 UT) capsule Take 25 mcg by mouth daily. ibuprofen 800 MG tablet Take 800 mg by mouth 3 times daily as needed for mild pain (1-3). isosorbide mononitrate ER (Imdur) 60 MG 24 hr tablet Take 60 mg by mouth daily. Do not crush or chew. Krill Oil 500 MG capsule Take 1 capsule by mouth daily. lisinopril 5 MG tablet Take 2.5 mg by mouth daily. Multiple Vitamin (multivitamin) capsule Take 1 capsule by mouth daily. nitroglycerin (Nitrostat) 0.[address] 0.4 mg under the tongue every 5 minutes as needed for chest pain. ranolazine (Ranexa) 500 MG 12 hr tablet Take 1,000 mg by mouth 2 times daily. Do not crush, chew, or split. rosuvastatin (Crestor) 10 MG tablet Take 10 mg by mouth daily. zinc gluconate 50 MG tablet Take 50 mg by mouth daily. [DISCONTINUED] coenzyme Q-10 50 MG capsule Take 200 mg by mouth daily. [DISCONTINUED] Exzbstcklmc-Shjxntmwm-Knvzyofa 250-200-116.67 MG capsule Take 1 tablet by mouth daily. [DISCONTINUED] meclizine (Antivert) 25 MG tablet Take 25 mg by mouth 3 times daily as needed for dizziness. [DISCONTINUED] promethazine (Phenergan) 25 MG tablet Take 25 mg by mouth every 6 hours as needed for nausea or vomiting. REVIEW OF SYSTEMS Pertinent items are noted in HPI. Objective: BP 98/72 (BP Location: Right arm, Patient Position: Sitting) Pulse 99 Temp 36.5 C (97.7 F) (Temporal) Resp 18 Ht 1.753 m (5' 9) Wt 107 kg (235 lb 8 oz) SpO2 93% BMI 34.78 kg/m PHYSICAL EXAM General appearance: in no apparent distress, alert, and oriented times 3 Skin: warm and dry Pulmonary: Normal effort, no respiratory distress, no cyanosis Extremities: no cyanosis, clubbing or edema Left medial lower leg: incision noted with dry surgical glue. Right medial lower leg: incision noted with dry surgical glue. Right chest: 2x2x0.1cm. Wound bed with pink tissue. Small serosanguinous drainage noted. (Picture did not upload) Left chest: 2x2x0.1cm. Wound bed with pink tissue. Small serosanguinous drainage noted. Right upper abdomen: 2x2x0.1cm. Wound bed with pink tissue. Small serosanguinous drainage noted. LABS CBC: Lab Results Component Value Date WBC 6.2 06/05/2023 HGB 11.5 (L) 06/05/2023 HCT 35.2 (L) 06/05/2023 MCV 88.4 06/05/2023 PLT 192 06/05/2023 BMP: Lab Results Component Value Date NA 137 06/05/2023 K 4.4 06/05/2023 CL 101 06/05/2023 CO2 32 (H) 06/05/2023 BUN 16 06/05/2023 CREATININE 0.69 06/05/2023 PT/INR: Lab Results Component Value Date PROTIME 10.5 06/04/2023 INR 1.0 06/04/2023 Prealbumin: No results found for: PREALBUMIN Albumin:No components found for: LABALBU Sed Rate:No results found for: SEDRATE Micro: No components found for: BC Assessment/Plan: Left medial lower leg: surgical -leave TIFFANIE Right medial lower leg: surgical -leave TIFFANIE Right chest: partial thickness burn -Cleanse with NS, apply adaptic, foam dressing daily and PRN Left chest: partial thickness burn -Cleanse with NS, apply adaptic, foam dressing daily and PRN Left upper abdomen: partial thickness burn -Cleanse with NS, apply adaptic, foam dressing daily and PRN Nutritional support Wound Care to follow Recommend to follow up at [facility] wound care center after hospital discharge. Any questions or concerns please secure chat [facility] wound/ostomy. Thank you for the consult! I personally obtained the soto and critical portions of the history and physical exam. I reviewed the labs, imaging studies, and electronic medical record. I reviewed the chart documentation and discussed the patient with treatment team members. I have edited the note to reflect my clinical findings and my assessment and plan. Please note, the time of this note does not reflect the time I saw this patient today, but the time of this documentaton. Portions of this note including HPI, ROS, impression/plan, and examination may have been copied forward from admission to today as to provide important historical information essential in contributing to medical decision making. Documentation has been reviewed and edited as necessary to support clinical decision making for today's visit and to reflect my own independent evaluation of this patient. Decision making for today's visit and to reflect my own independent evaluation of this patient. Urology Inpatient Consultation Patient Name: Sylvester Lacy Date of : 1960 Admission Date: 05/31/2023 2:33 PM Today's Date: 06/05/2023 Reason for consultation: urinary retention Chief complaint: same HISTORY OF PRESENT ILLNESS: The patient is a 62 y.o. male unknown to our service presented on 05/30 with chest pain and underwent CABG on 05/31. A catheter was placed intra-op and maintain until 06/02 when it was removed. He required staight cath over the weekend for 1.3L and 650cc. A catheter was replaced this morning and urology was consulted. He is not on any prostate medications at home. He was voiding without issue prior to his surgery. He does not recall seeing urology in the past. PAST MEDICAL HISTORY: Past Medical History: Diagnosis Date Atherosclerosis of coronary artery Hay fever Hemorrhoids History of alcohol abuse History of inferior wall myocardial infarction History of pulmonary embolism Hyperlipidemia Hypertension Mucous cyst of digit of hand NSVT (nonsustained ventricular tachycardia) (HCC) PAST SURGICAL HISTORY: Past Surgical History: Procedure Laterality Date CORONARY STENT PLACEMENT ALLERGIES: Patient has no known allergies. CURRENT MEDICATIONS: Medications No current facility-administered medications for this visit. No current outpatient medications on file. Facility-Administered Medications Ordered in Other Visits: [START ON 06/01/2023] chlorhexidine (Hibiclens) 4 % liquid, , Topical, Once, JOSE DANIEL Sultana CNP chlorhexidine (Hibiclens) 4 % liquid, , Topical, Once, JOSE DANIEL Sultana CNP [START ON 06/01/2023] chlorhexidine (Peridex) 0.12 % solution 15 mL, 15 mL, Mouth/Throat, Once, JOSE DANIEL Sultana CNP chlorhexidine (Peridex) 0.12 % solution 15 mL, 15 mL, Mouth/Throat, Once, JOSE DANIEL Sultana CNP [START ON 06/01/2023] mupirocin (Bactroban) 2 % ointment, , Topical, Once, JOSE DANIEL Sultana CNP mupirocin (Bactroban) 2 % ointment, , Topical, Once, JOSE DANIEL Sultana CNP FAMILY HISTORY: Family History Problem Relation Name Age of Onset Diabetes Mother Social History: Social History Tobacco Use Smoking status: Former Packs/day: 1.50 Years: 30.00 Additional pack years: 0.00 Total pack years: 45.00 Types: Cigarettes Quit date: 2014 Years since quittin.1 Smokeless tobacco: Never Substance Use Topics Alcohol use: Yes Alcohol/week: 12.0 standard drinks of alcohol Types: 12 Cans of beer per week ROS: Constitutional: negative for chills and fevers HEENT: no blurry vision or eye redness Respiratory: negative for hemoptysis and shortness of breath Cardiovascular: negative for dyspnea and syncope Gastrointestinal: negative for jaundice, nausea and vomiting Genitourinary:negative for dysuria and hematuria,+ urinary retention Hematologic/lymphatic: negative for bleeding Integumentary: no new bruises or lesions Musculoskeletal:negative for muscle weakness Neurological: negative for coordination problems and seizures All other systems negative Physical Exam: Vitals: Vitals: 06/05/23 0500 06/05/23 0600 06/05/23 0700 06/05/23 0800 BP: 110/79 BP Location: Right arm Patient Position: Lying Pulse: 94 112 112 96 Resp: 18 Temp: 36.6 C (97.9 F) TempSrc: Temporal SpO2: 93% 92% Weight: 235 lb 8 oz (107 kg) Height: General: Alert, in no acute distress Head: Normocephalic, atraumatic Neck: supple, trachea is midline, no obvious masses Respiratory: normal effort Cardiovascular: regular pulse, no extremity edema Musculoskeletal: moving all 4 extremities Skin: warm and dry Psych: normal mood and affect; appropriate judgement and insight Abdomen: soft, non distended, non tender : isaac draining yellow urine DATA: LABS: BMP: Lab Results Component Value Date GLUCOSE 123 (H) 06/05/2023 CALCIUM 9.5 06/05/2023 NA 137 06/05/2023 K 4.4 06/05/2023 CO2 32 (H) 06/05/2023 CL 101 06/05/2023 BUN 16 06/05/2023 CREATININE 0.69 06/05/2023 CBC: Lab Results Component Value Date WBC 6.2 06/05/2023 HGB 11.5 (L) 06/05/2023 HCT 35.2 (L) 06/05/2023 MCV 88.4 06/05/2023 PLT 192 06/05/2023 Urinalysis: reviewed Urine Culture: No components found for: LABURIN RADIOLOGY: none IMPRESSION: 62 y.o. male with history of CAD s/p CABG x5 on 05/30, developed urinary retention post-operatively requiring multiple straight caths (1.3L and 650cc) PLAN: - maintain catheter to gravity drainage - flomax - UA ordered - no recent imaging, Cr wnl - recommend increasing bowel regimen to promote BM - given high volume retention, may require discharge with catheter in place if plan for discharge tomorrow - if staying until Monday can attempt void trial (call mechanical systems control engineer resident morning of discharge) Thank you for allowing me to participate in the care of your patient ALEXANDER MAYNARD MD 06/05/23 11:01 AM - Page mechanical systems control engineer resident with questions. Associated attestation - Bryant Breaux MD - 06/06/2023 11:38 AM EDT I saw and evaluated the patient, participating in the soto portions of the service. I reviewed the resident s note. I agree with the resident s findings and plan. Bryant Breaux MD Associated Order(s): IP CONSULT TO DIETITIAN Nutrition Assessment Type and Reason for Visit: Initial, Consult, Patient Education (post open heart surgery) Nutrition Recommendations/Plan: Continue diet as ordered Per MNT protocol, will order Ensure HP BID to promote post-op PO intake and healing Provided heart healthy diet handout with [facility] RD phone number to pt. Will return prior to discharge for education needs assessment (as able) RD will monitor overall nutrition status and will follow weekly Malnutrition Assessment: Malnutrition Status: At risk for malnutrition (Comment) (s/p open heart surgery) Nutrition Assessment: Pt was referred from [facility] due to MVCAD. Pmhx including RCA and PDA stents in 2008, HTN, Hx of NSVT, Hx of PE, former tobacco use and current ETOH use. He was see in OP setting 05/31/23 and noted to have unstable angina with palpitations and he was direct admitted for urgent CABG. Preoperative testing was completed and he consented to surgical revascularization. He underwent CABG x5 on 05/31. Extubated with diet ordered. Pt reports he tolerated breakfast well, had a western scramble, muffin, and banana bread with OJ, ate 100% of breakfast, follows a general diet, denies weight loss, eating well prior to admission, no difficulty with chewing or swallowing, NKFA. He denies hx of diet education. RD provided heart healthy handout with [facility] RD phone number and advised that RD will return prior to discharge for education. Pt is agreeable to ONS Estimated Daily Nutrient Needs: Energy Requirements Based On: Kcal/kg Weight Used for Energy Requirements: [place] (25-30 kcal/kg) Weight for Energy Calculation (kg): 72.6 kg Total Energy Requirements (kcals/day): 7736-2766 Weight Used for Protein Requirements: [place] (1.2-1.5 g/kg) Weight in Kg Used for Protein Requirements: 72.6 kg Estimated Total Protein (g/day): 87-109 Estimated Daily Total Fluid (ml/day): per MD Nutrition Related Findings: Nutrition History: Independent of feeding. Lives with: Alone GI symptoms: None at this time. Humphrey Scale Score: 20 .Wound Type: Surgical Incision Net IO Since Admission: 1,282.13 mL [06/02/23 1343] Edema: RUE Edema: None, LUE Edema: None, RLE Edema: Other (Comment) (none), LLE Edema: Other (Comment) (none) Bowel Sounds (All Quadrants): Hypoactive Abdomen Inspection: Soft, Rounded Last BM Date: 05/31/23 Labs and meds reviewed: acetaminophen, 1,000 mg, Oral, q8h amLODIPine, 2.5 mg, Oral, Daily aspirin, 81 mg, Oral, Daily ceFAZolin, 2,000 mg, IntraVENous, q8h chlorhexidine, 15 mL, Mouth/Throat, BID insulin lispro, 0-6 Units, SubCUTAneous, TID WC And insulin lispro, 0-6 Units, SubCUTAneous, Nightly ketorolac, 15 mg, IntraVENous, q6h Lidocaine, 1 patch, Topical, Daily mupirocin, , Nasal, BID polyethylene glycol (PEG) 3350, 17 g, Oral, Daily rosuvastatin, 40 mg, Oral, Daily senna-docusate sodium, 2 tablet, Oral, Nightly sodium chloride 0.9%, 10 mL, IntraVENous, 2 times per day BMP: Recent Labs 05/31/23 1501 06/01/23 1245 06/02/23 0004 NA 137 139 136 K 4.0 4.3 4.5 CL 103 109* 107 CO2 28 23 22 BUN 12 14 17 CREATININE 0.75 0.79 0.83 GLUCOSE 91 118* 111* CALCIUM 9.4 8.7 7.9* MG 2.0 2.9* 2.2 PHOS 3.2 3.2 -- Recent Labs 06/02/23 0004 06/02/23 0154 06/02/23 0410 06/02/23 0618 06/02/23 0821 06/02/23 1222 POCGLU 115* 117* 99 111* 110* 125* Lab Results Component Value Date HGBA1C 6.2 (H) 05/31/2023 Current Nutrition Therapies: Adult diet Regular; Low Sodium (2 gm); 5 carb choices (75 gm/meal) Current Oral Intake Average Meal Intake: 76-100% Average Supplements Intake: None Ordered Anthropometric Measures: Height: 175.3 cm (5' 9) Current Body Weight: 110 kg (242 lb 4.6 oz) (06/01) Admission Body Weight: 108 kg (239 lb 1.6 oz) (standing scale 05/31) [place] Body Weight (lbs) (Calculated): 160 lbs [place] Body Weight (Kg) (Calculated): 73 kg % [place] Body Weight (Calculated): 151.4 % BMI (kg/m2) (Calculated): 35.8 BMI Categories: Obese Class 2 (BMI 35.0 -39.9) Wt Readings from Last 10 Encounters: 06/02/23 110 kg (242 lb 4.6 oz) 05/31/23 111 kg (245 lb) Nutrition Diagnosis: Increased nutrient needs related to inadequate protein-energy intake as evidenced by wounds (surgical) Nutrition Interventions: Food and/or Nutrient Delivery: Start Oral Nutrition Supplement, Continue Current Diet Nutrition Education/Counseling: No recommendation at this time, Education initiated, Education needed Coordination of Nutrition Care: Continue to monitor while inpatient Goals: Goals: PO intake 75% or greater, by next RD assessment Nutrition Monitoring and Evaluation: Behavioral-Environmental Outcomes: Knowledge or Skill Food/Nutrient Intake Outcomes: Food and Nutrient Intake, Supplement Intake Physical Signs/Symptoms Outcomes: Biochemical Data, GI Status, Skin, Weight Discharge Planning: Too soon to determine Domitila Herrera RD, LD Contact: *[phone] or via Bilna Associated Order(s): IP CONSULT TO CARDIAC REHAB Received referral and reviewed chart. Unable to discuss Phase II Cardiac Rehab Referral with Sylvester Lacy at this time. Will follow to discuss cardiac rehab when appropriate. Patient will be contacted at home if discharged prior to discussion. Associated Order(s): IP CONSULT TO ENDOCRINOLOGY Department of Internal Medicine Division of Endocrinology, Diabetes, & Metabolism Endocrinology Note Patient Name: Sylvester Lacy : 1960 AGE: 62 y.o. Room/Bed: T1-124/T1-124 A Admission Date: 05/31/2023 Visit Date: 06/01/2023 Reason for Endocrine Consult: Post Op Heart Surgery Provider/Team Requesting Consult: Darion Lopes, HIGH RISK OB-ROTARY DRILL OPERATOR PCP: Crissy Engle DO Outpt Chassis Engineer: No ASSESSMENT: Severe Multivessel CAD s/p CABG Prediabetes (A1c 6.2%) Hx of [place] s/p stent to RCA and PDA in 2008 Hx of PE Hx of NSVT Hypertension Hx of tobacco use PLAN: - On post-surgical insulin regimen with specified glucose parameters. Will monitor over the next 24 hours for need to continue insulin drip. - POCT q1 hr - When able to eat recommend carb control diet - Recommend prediabetes counseling to reduce likelihood of progression to T2DM - Hypoglycemia management per protocol ANTICIPATED ENDOCRINE HOME GOING RECOMMENDATIONS: Optimized for Discharge from Endocrine standpoint: No Home Going Endocrine Rx Recommendations-- TBD Outpt Follow Up-- TBD SUBJECTIVE/HPI: CHIEF COMPLAINT: CAD with symptoms of Unstable Angina Terry Bambi is a 62 yo male with a past medical history of severe triple-vessel disease noted on heart cath (05/19/23), hx of inferior AL s/p stent to RCA and PDA (2008), hx of PE, hx of NSVT, hypertension, former smoker, hx of alcohol use who follows [place] [facility] [place] [facility] [place]. [facility] was [facility] on 05/[facility]23 from cardiothoracic surgeon's office for urgent CABG. A CABG x5 was performed on 05/31. Now in CCU. Remains intubated and sedated. VS have been stable. Lab work significant for hgb 8.9 and hematocrit 27.1. Remains on nitroglycerin gtt, propofol infusion, NS 0.45% infusion, and insulin drip. Sister at bedside states he has never had a history of diabetes, thyroid disease, adrenal abnormalities. Denies chronic steroid use. Biological mother with diabetes mellitis. Glucose Date/Time Value Ref Range Status 06/01/2023 01:29 PM 102 (H) 70 - 100 mg/dL Final Review of Systems Reason unable to perform ROS: Patient intubated and sedated. ROS negative except for those mentioned in HPI. OBJECTIVE: Vitals: 06/01/23 0545 06/01/23 0600 06/01/23 0700 06/01/23 1329 BP: 152/90 156/88 Pulse: 68 69 73 89 Resp: 18 (!) 11 SpO2: 93% 95% 94% Weight: Height: Physical Exam Constitutional: General: He is not in acute distress. Appearance: He is diaphoretic. He is not ill-appearing or toxic-appearing. Comments: Intubated and sedated HENT: Head: Normocephalic. Mouth/Throat: Mouth: Mucous membranes are moist. Eyes: Extraocular Movements: Extraocular movements intact. Cardiovascular: Rate and Rhythm: Normal rate and regular rhythm. Pulses: Normal pulses. Heart sounds: Normal heart sounds. No murmur heard. No friction rub. No gallop. Comments: Surgical bandage in place Pulmonary: Effort: No respiratory distress. Breath sounds: Normal breath sounds. No wheezing. Comments: Intubated Abdominal: General: Abdomen is flat. Bowel sounds are normal. There is no distension. Palpations: Abdomen is soft. Musculoskeletal: Right lower leg: No edema. Left lower leg: No edema. Comments: LUE and RLE bandage from graft sights Skin: General: Skin is warm. Neurological: Mental Status: He is oriented to person, place, and time. Motor: No weakness. Psychiatric: Mood and Affect: Mood normal. Behavior: Behavior normal. 24 hour intake/output: Intake/Output Summary (Last 24 hours) at 06/01/2023 1346 Last data filed at 06/01/2023 1333 Gross per 24 hour Intake 1951.13 ml Output 1505 ml Net 446.13 ml Diet: NPO diet Medications (as per EMR): HomeMeds: Current Outpatient Medications Medication Instructions aspirin 81 mg, Oral, Daily carvedilol (COREG) 6.25 mg, Oral, 2 times daily with meals cholecalciferol (CHOLECALCIFEROL) 25 mcg, Oral, Daily ibuprofen 800 mg, Oral, 3 times daily PRN isosorbide mononitrate ER (IMDUR) 60 mg, Oral, Daily, Do not crush or chew. Krill Oil 500 MG capsule 1 capsule, Oral, Daily lisinopril 2.5 mg, Oral, Daily Multiple Vitamin (multivitamin) capsule 1 capsule, Oral, Daily nitroglycerin (NITROSTAT) 0.4 mg, SubLINGual, Every 5 min PRN ranolazine (RANEXA) 1,000 mg, Oral, 2 times daily, Do not crush, chew, or split. rosuvastatin (CRESTOR) 10 mg, Oral, Daily zinc gluconate 50 mg, Oral, Daily Scheduled Meds:acetaminophen, 1,000 mg, Oral, q8h aspirin, 81 mg, Oral, Daily carvedilol, 6.25 mg, Oral, BID WC ceFAZolin, 2,000 mg, IntraVENous, q8h chlorhexidine, 15 mL, Mouth/Throat, BID Lidocaine, 1 patch, Topical, Daily mupirocin, , Nasal, BID niCARdipine, , , [START ON 06/02/2023] pantoprazole, 40 mg, IntraVENous, Daily polyethylene glycol (PEG) 3350, 17 g, Oral, Daily rosuvastatin, 40 mg, Oral, Daily senna-docusate sodium, 2 tablet, Oral, Nightly sodium chloride 0.9%, 10 mL, IntraVENous, 2 times per day sodium chloride 0.9%, 5-40 mL, IntraVENous, q12h Continuous Infusions:EPINEPHrine, 0.01-0.2 mcg/kg/min insulin regular, 1-50 Units/hr lactated ringers, 250 mL niCARdipine, 3-15 mg/hr nitroglycerin, 5-200 mcg/min, Last Rate: 40 mcg/min (06/01/23 0701) nitroglycerin, 5-300 mcg/min norepinephrine, 0.01-0.2 mcg/kg/min propofol, 5-50 mcg/kg/min sodium chloride, 20 mL/hr PRN Meds:PRN medications: acetaminophen OR acetaminophen, albumin human, calcium gluconate, dextrose, dextrose, EPINEPHrine, glucagon (rDNA), glucose, heparin, heparin, ipratropium-albuterol, lactated ringers, magnesium hydroxide, magnesium sulfate OR magnesium sulfate, morphine sulfate OR morphine sulfate, niCARdipine, niCARdipine, nitroglycerin, norepinephrine, ondansetron ODT OR ondansetron, ondansetron ODT OR ondansetron, oxyCODONE OR oxyCODONE, polyethylene glycol (PEG) 3350, potassium chloride OR potassium chloride OR potassium chloride, [START ON 06/02/2023] potassium chloride CR, sodium chloride, sodium chloride, sodium chloride 0.9%, sodium chloride 0.9% Diagnostic Workup: I reviewed pertinent Laboratory results, Radiographic results, and Other Clinical Notes at the time of today's encounter. Labs: No components found for: LABA1C No components found for: EAG Lab Results Component Value Date NA 139 06/01/2023 K 4.3 06/01/2023 CL 109 (H) 06/01/2023 CO2 23 06/01/2023 BUN 14 06/01/2023 CREATININE 0.79 06/01/2023 GLUCOSE 118 (H) 06/01/2023 CALCIUM 8.7 06/01/2023 No results found for: CHLPL, CHOL No results found for: TRIG No results found for: HDL No results found for: LDLCALC No results found for: VLDL No results found for: CHOLHDLRATIO No results found for: [id number] No results found for: TSH, G1AHTBK, Q3QEFIK, THYROIDAB Radiology reportsas per the Radiologist Radiology: POCT glucose meter Result Date: 06/01/2023 Performed by: Machine Talkerchema Scrybe [facility], [address] [place] [address] CLIA ID: [id number] CT chest wo IV contrast Result Date: 06/01/2023 [facility] 1960 [id number] Exam Date/Time: 05/31/2023 16:53 Procedure: CT CHEST WO IV CONTRAST Ordering Provider: LOPES ANDREW Reason For Exam: assess aorta prior to open heart surgery CT CHEST WITHOUT CONTRAST: CLINICAL INDICATION: Open heart surgery. TECHNIQUE: Transaxial sequence from apices through the bases with 1 mm reconstruction interval. Coronal and sagittal reconstructions included. Dose reduction was employed with automated exposure control. COMPARISON: None. FINDINGS: Lungs/airways: Mild bibasilar atelectasis without evidence of pleural effusion, focal consolidation or pneumothorax. Pulmonary nodules: No discrete pulmonary nodules. Lower neck, lymph nodes, and mediastinum: The visualized thyroid gland is unremarkable. No mediastinal, hilar, or axillary lymphadenopathy based on size criteria. Trace hiatal hernia. Heart, pericardium, and thoracic vessels: The thoracic aorta is normal in caliber with mild atherosclerotic calcifications. Please note the aorta is approximately 2.3 cm posterior to the sternum at the level the aortic arch which is the closest proximity. The pulmonary artery is normal in size. The heart is normal in size without evidence of pericardial effusion. Severe coronary artery calcifications. (Please note the study is not tailored for coronary artery evaluation.) Upper abdomen: No abnormality in the visualized upper abdomen. Bones and soft tissues: The soft tissues are unremarkable. No suspicious osseous lesions. Mild multilevel discogenic degenerative changes. The aorta is approximately 2.3 cm posterior to the sternum at the level of the aortic arch which is the closest proximity. There are mild atherosclerotic calcifications of the aorta without aneurysmal dilatation. Additional findings as described. Report Dictated on Electronically Signed By: Mitch Pierson MD Electronically Signed Date/Time: 06/01/2023 9:26 AM EST ECG 12 lead Sinus rhythm Left axis deviation Vascular US palmar arch evaluation Result Date: 05/31/2023 There is diminished right PPG waveforms with radial artery compression indicative of incomplete arch. There are no changes to left PPG signals with radial artery compression indicative of a complete arch. ECG 12 lead Sinus rhythm Left axis deviation History/Other: Past Medical History: Past Medical History: Diagnosis Date Atherosclerosis of coronary artery Hay fever Hemorrhoids History of alcohol abuse History of inferior wall myocardial infarction History of pulmonary embolism Hyperlipidemia Hypertension Mucous cyst of digit of hand NSVT (nonsustained ventricular tachycardia) (HCC) Past Surgical History: Past Surgical History: Procedure Laterality Date CORONARY STENT PLACEMENT 2008 Allergy(ies): No Known Allergies Family History: Family History Problem Relation Name Age of Onset Diabetes Mother Social History: Social History Tobacco Use Smoking status: Former Packs/day: 1.50 Years: 30.00 Additional pack years: 0.00 Total pack years: 45.00 Types: Cigarettes Quit date: 2014 Years since quittin.1 Smokeless tobacco: Never Substance Use Topics Alcohol use: Yes Alcohol/week: 12.0 standard drinks of alcohol Types: 12 Cans of beer per week Drug use: Never Portions of the information within this encounter were entered using an electronic dictation system. Best attempts were made to edit/proofread the information prior to note completion. Despite the review of information, some errors may remain. If there are questions related to the information contained within the note please contact the signing physician directly. Associated attestation - Janice Fairchild MD - 06/01/2023 6:36 PM EST I performed a history and physical examination of the patient. I have reviewed the patient's chart including pertinent history, medications, labs, radiology, and other reports. I reviewed the resident/MATTY's note, agree with the documented findings and plan of care (with modifications noted if any), and discussed the management plan. Pt is s/p urgent CABG for unstable angina and MV-CAD on 06/01/23. Pt now extubated. He is awake and conversant. Sister at bedside. Known prediabetes. Never been on meds for DM. M with DM. Goes [place]. Diet is high in fat; does not like vegetables. On statin/BB/TEVIN at home. On nitroglycerin and heparin drips. BG up to 140 now. Pt to be started on insulin drip. Lab Results Component Value Date HGBA1C 6.2 (H) 05/31/2023 Lab Results Component Value Date GLUCOSE 118 (H) 06/01/2023 CALCIUM 8.7 06/01/2023 NA 139 06/01/2023 K 4.3 06/01/2023 CO2 23 06/01/2023 CL 109 (H) 06/01/2023 BUN 14 06/01/2023 CREATININE 0.79 06/01/2023 BP 104/69 (BP Location: Right arm, Patient Position: Lying) Pulse 96 Temp 37.8 C (100 F) (Core) Resp 20 Ht 5' 9 (1.753 m) Wt 239 lb (108 kg) SpO2 97% BMI 35.29 kg/m awake, not in distress, RRR, chest incision dressed, good pulses, clear breath sounds, +chest tubes, abdomen soft, non-tender, no edema, no focal deficits. Dx: Prediabetes/stress hyperglycemia Severe MV-CAD s/p CABG Unstable angina Obesity Body mass index is 35.29 kg/m . HTN HLP Plan: - will continue insulin infusion per protocol then transition to subcutaneous insulin likely pipe - continue blood glucose monitoring - discussed postop hyperglycemia management and goals of therapy - patient will unlikely require any pharmacotherapy on discharge for hyperglycemia - discussed need for lifestyle modification and weight management - will follow Based on above assessment and management, combination of acute and chronic problems, exacerbations and/or acuity, this visit would be considered to be of moderate complexity. documented in this encounter [facility] 06-05-2023 Consult note Associated Order (s): IP WOUND CARE NURSE CONSULT TO EVAL Images from the original note were not included. [facility] Wound Care CONSULT Note Sylvester Lacy AGE: 62 y.o. GENDER: male : 1960 Subjective: HISTORY of PRESENT ILLNESS HPI Sylvester Lacy is a 62 y.o. male who presents for a wound consult. HPI: 62 y.o. 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 Pmhx including RCA and PDA stents in 2008, HTN, Hx of NSVT, Hx of PE, former tobacco use and current ETOH use. He was see in OP setting 05/31/23 and noted to have unstable angina with palpitations and he was direct admitted for urgent CABG. Preoperative testing was completed and he consented to surgical revascularization. Of note patient lives alone at home. 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 Wound Care consulted for multiple areas. Patient states he had a reaction to the electrode pads. PAST MEDICAL HISTORY Past Medical History: Diagnosis Date Atherosclerosis of coronary artery Hay fever Hemorrhoids History of alcohol abuse History of inferior wall myocardial infarction History of pulmonary embolism Hyperlipidemia Hypertension Mucous cyst of digit of hand NSVT (nonsustained ventricular tachycardia) (HCC) PAST SURGICAL HISTORY Past Surgical History: Procedure Laterality Date CORONARY STENT PLACEMENT 2008 FAMILY HISTORY Family History Problem Relation Name Age of Onset Diabetes Mother SOCIAL HISTORY Social History Tobacco Use Smoking status: Former Packs/day: 1.50 Years: 30.00 Additional pack years: 0.00 Total pack years: 45.00 Types: Cigarettes Quit date: 2014 Years since quittin.1 Smokeless tobacco: Never Substance Use Topics Alcohol use: Yes Alcohol/week: 12.0 standard drinks of alcohol Types: 12 Cans of beer per week Drug use: Never ALLERGIES No Known Allergies MEDICATIONS No current facility-administered medications on file prior to encounter. Current Outpatient Medications on File Prior to Encounter Medication Sig Dispense Refill aspirin 81 MG EC tablet Take 81 mg by mouth daily. carvedilol (Coreg) 12.5 MG tablet Take 6.25 mg by mouth in the morning and 6.25 mg in the evening. Take with meals. cholecalciferol 25 MCG (1000 UT) capsule Take 25 mcg by mouth daily. ibuprofen 800 MG tablet Take 800 mg by mouth 3 times daily as needed for mild pain (1-3). isosorbide mononitrate ER (Imdur) 60 MG 24 hr tablet Take 60 mg by mouth daily. Do not crush or chew. Krill Oil 500 MG capsule Take 1 capsule by mouth daily. lisinopril 5 MG tablet Take 2.5 mg by mouth daily. Multiple Vitamin (multivitamin) capsule Take 1 capsule by mouth daily. nitroglycerin (Nitrostat) 0.[address] 0.4 mg under the tongue every 5 minutes as needed for chest pain. ranolazine (Ranexa) 500 MG 12 hr tablet Take 1,000 mg by mouth 2 times daily. Do not crush, chew, or split. rosuvastatin (Crestor) 10 MG tablet Take 10 mg by mouth daily. zinc gluconate 50 MG tablet Take 50 mg by mouth daily. [DISCONTINUED] coenzyme Q-10 50 MG capsule Take 200 mg by mouth daily. [DISCONTINUED] Qugcywofuni-Pnfptzrpg-Qytnfdjq 250-200-116.67 MG capsule Take 1 tablet by mouth daily. [DISCONTINUED] meclizine (Antivert) 25 MG tablet Take 25 mg by mouth 3 times daily as needed for dizziness. [DISCONTINUED] promethazine (Phenergan) 25 MG tablet Take 25 mg by mouth every 6 hours as needed for nausea or vomiting. REVIEW OF SYSTEMS Pertinent items are noted in HPI. Objective: BP 98/72 (BP Location: Right arm, Patient Position: Sitting) Pulse 99 Temp 36.5 C (97.7 F) (Temporal) Resp 18 Ht 1.753 m (5' 9) Wt 107 kg (235 lb 8 oz) SpO2 93% BMI 34.78 kg/m PHYSICAL EXAM General appearance: in no apparent distress, alert, and oriented times 3 Skin: warm and dry Pulmonary: Normal effort, no respiratory distress, no cyanosis Extremities: no cyanosis, clubbing or edema Left medial lower leg: incision noted with dry surgical glue. Right medial lower leg: incision noted with dry surgical glue. Right chest: 2x2x0.1cm. Wound bed with pink tissue. Small serosanguinous drainage noted. (Picture did not upload) Left chest: 2x2x0.1cm. Wound bed with pink tissue. Small serosanguinous drainage noted. Right upper abdomen: 2x2x0.1cm. Wound bed with pink tissue. Small serosanguinous drainage noted. 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 Any questions or concerns please secure chat [facility] wound/ostomy. Thank you for the consult! I personally obtained the soto and critical portions of the history and physical exam. I reviewed the labs, imaging studies, and electronic medical record. I reviewed the chart documentation and discussed the patient with treatment team members. I have edited the note to reflect my clinical findings and my assessment and plan. Please note, the time of this note does not reflect the time I saw this patient today, but the time of this documentaton. Portions of this note including HPI, ROS, impression/plan, and examination may have been copied forward from admission to today as to provide important historical information essential in contributing to medical decision making. Documentation has been reviewed and edited as necessary to support clinical decision making for today's visit and to reflect my own independent evaluation of this patient. Decision making for today's visit and to reflect my own independent evaluation of this patient. [facility] [employer] Work Phone: 06-05-2023 Consult note Formatting of th is note is different from the original. Urology Inpatient Consultation Patient Name: Sylvester Lacy Date of : 1960 Admission Date: 05/31/2023 2:33 PM Today's Date: 06/05/2023 Reason for consultation: urinary retention Chief complaint: same HISTORY OF PRESENT ILLNESS: The patient is a 62 y.o. male unknown to our service presented on 05/30 with chest pain and underwent CABG on 05/31. A catheter was placed intra-op and maintain until 06/02 when it was removed. He required staight cath over the weekend for 1.3L and 650cc. A catheter was replaced this morning and urology was consulted. He is not on any prostate medications at home. He was voiding without issue prior to his surgery. He does not recall seeing urology in the past. PAST MEDICAL HISTORY: Past Medical History: Diagnosis Date Atherosclerosis of coronary artery Hay fever Hemorrhoids History of alcohol abuse History of inferior wall myocardial infarction History of pulmonary embolism Hyperlipidemia Hypertension Mucous cyst of digit of hand NSVT (nonsustained ventricular tachycardia) (HCC) PAST SURGICAL HISTORY: Past Surgical History: Procedure Laterality Date CORONARY STENT PLACEMENT ALLERGIES: Patient has no known allergies. CURRENT MEDICATIONS: Medications No current facility-administered medications for this visit. No current outpatient medications on file. Facility-Administered Medications Ordered in Other Visits: [START ON 06/01/2023] chlorhexidine (Hibiclens) 4 % liquid, , Topical, Once, JOSE DANIEL Sultana CNP chlorhexidine (Hibiclens) 4 % liquid, , Topical, Once, JOSE DANIEL Sultana CNP [START ON 06/01/2023] chlorhexidine (Peridex) 0.12 % solution 15 mL, 15 mL, Mouth/Throat, Once, JOSE DANIEL Sultana CNP chlorhexidine (Peridex) 0.12 % solution 15 mL, 15 mL, Mouth/Throat, Once, JOSE DANIEL Sultana CNP [START ON 06/01/2023] mupirocin (Bactroban) 2 % ointment, , Topical, Once, JOSE DANIEL Sultana CNP mupirocin (Bactroban) 2 % ointment, , Topical, Once, JOSE DANIEL Sultana CNP FAMILY HISTORY: Family History Problem Relation Name Age of Onset Diabetes Mother Social History: Social History Tobacco Use Smoking status: Former Packs/day: 1.50 Years: 30.00 Additional pack years: 0.00 Total pack years: 45.00 Types: Cigarettes Quit date: 2014 Years since quittin.1 Smokeless tobacco: Never Substance Use Topics Alcohol use: Yes Alcohol/week: 12.0 standard drinks of alcohol Types: 12 Cans of beer per week ROS: Constitutional: negative for chills and fevers HEENT: no blurry vision or eye redness Respiratory: negative for hemoptysis and shortness of breath Cardiovascular: negative for dyspnea and syncope Gastrointestinal: negative for jaundice, nausea and vomiting Genitourinary:negative for dysuria and hematuria,+ urinary retention Hematologic/lymphatic: negative for bleeding Integumentary: no new bruises or lesions Musculoskeletal:negative for muscle weakness Neurological: negative for coordination problems and seizures All other systems negative Physical Exam: Vitals: Vitals: 06/05/23 0500 06/05/23 0600 06/05/23 0700 06/05/23 0800 BP: 110/79 BP Location: Right arm Patient Position: Lying Pulse: 94 112 112 96 Resp: 18 Temp: 36.6 C (97.9 F) TempSrc: Temporal SpO2: 93% 92% Weight: 235 lb 8 oz (107 kg) Height: General: Alert, in no acute distress Head: Normocephalic, atraumatic Neck: supple, trachea is midline, no obvious masses Respiratory: normal effort Cardiovascular: regular pulse, no extremity edema Musculoskeletal: moving all 4 extremities Skin: warm and dry Psych: normal mood and affect; appropriate judgement and insight Abdomen: soft, non distended, non tender : isaac draining yellow urine DATA: LABS: BMP: Lab Results Component Value Date GLUCOSE 123 (H) 06/05/2023 CALCIUM 9.5 06/05/2023 NA 137 06/05/2023 K 4.4 06/05/2023 CO2 32 (H) 06/05/2023 CL 101 06/05/2023 BUN 16 06/05/2023 CREATININE 0.69 06/05/2023 CBC: Lab Results Component Value Date WBC 6.2 06/05/2023 HGB 11.5 (L) 06/05/2023 HCT 35.2 (L) 06/05/2023 MCV 88.4 06/05/2023 PLT 192 06/05/2023 Urinalysis: reviewed Urine Culture: No components found for: LABURIN RADIOLOGY: none IMPRESSION: 62 y.o. male with history of CAD s/p CABG x5 on 05/30, developed urinary retention post-operatively requiring multiple straight caths (1.3L and 650cc) PLAN: - maintain catheter to gravity drainage - flomax - UA ordered - no recent imaging, Cr wnl - recommend increasing bowel regimen to promote BM - given high volume retention, may require discharge with catheter in place if plan for discharge tomorrow - if staying until Monday can attempt void trial (call mechanical systems control engineer resident morning of discharge) Thank you for allowing me to participate in the care of your patient ALEXANDER MAYNARD MD 06/05/23 11:01 AM - Page mechanical systems control engineer resident with questions. Associated attestation - Bryant Breaux MD - 06/06/2023 11:38 AM EDT I saw and evaluated the patient, participating in the soto portions of the service. I reviewed the resident s note. I agree with the resident s findings and plan. Bryant Breaux MD [facility] [employer] Work Phone: 06-04-2023 Note OCCUPATIONAL THERAPY [facility] Initial Evaluation Name/MRN: Terry Lacy ([id number]) Evaluation Date: 06/04/2023 Date of : 1960 Admission Date: 05/31/2023 2:33 PM Age: 62 y.o. Room/Bed: T1-124/T1-124 A Discharge Recommendation: Home with assist PRN Equipment Needed: Yes Mobility Devices: ADL Assistive Devices ADL Assistive Devices: Shower Chair with back Assessment IMPRESSION: Patient is a 62-year-old male hospitalized s/p CABG x 5. Patient is functionally independent with self-care tasks and functional mobility at baseline. Patient is limited by the deficits listed below. Patient is Modified Independent for UB ADLs, Supervision LB ADLs and Supervision toileting. Patient is SBA bed mobility and Supervision for transfers/functional mobility. Recommending Home with Assist PRN upon discharge. Performance Deficits /Impairments: N/A Prognosis: Good Decision Making: Low Complexity Subjective Patient supine in bed; patient agreeable to therapy evaluation. RN ok'd for participation. Pain: RN managing pain. Past Medical History: Past Medical History: Diagnosis Date Atherosclerosis of coronary artery Hay fever Hemorrhoids History of alcohol abuse History of inferior wall myocardial infarction History of pulmonary embolism Hyperlipidemia Hypertension Mucous cyst of digit of hand NSVT (nonsustained ventricular tachycardia) ([facility]) Past Surgical History: Past Surgical History: Procedure Laterality Date CORONARY STENT PLACEMENT 2008 Admission Diagnosis: Patient Active Problem List Diagnosis Date Noted Coronary artery disease involving northwestern shoshone heart with angina pectoris, unspecified vessel or lesion type ([facility]) 05/31/2023 Medical Precautions: No active isolations Proper PPE donned/doffed in accordance with facility standards. Fall Risk: [place] Fall Risk Score: 35 (Medium Risk) Precautions/Restrictions: Sternal Precautions: No Pushing, No Pulling, No Lifting Greater Than 10 lbs Lines/Drains/Airways: PIV Family/Caregiver Present: none Overall Cognitive Status: WNL Overall Orientation Status: Oriented x4 Social/Functional History Patient admitted from home. Lives With: Alone Type of Home: single family home Home Layout: Split Level Home Home Access: Stairs to Enter without Rails (# of stairs: 1) + stairs in home without railings. Pt unsure of exact number. Bathroom Shower/Tub: step over tub Toilet: N/A Home Equipment: none Homemaking Responsibilities: Independent Receives Help From: None Active Assistant Guest Services Manager: Yes Prior Level of Function ADL Assistance: Independent Ambulation Assistance: Independent Transfer Assistance: Independent Objective ADLs LE Dressing: Supervision, donning/doffing socks sitting at EOB Toileting: Supervision, clothing management and peter-care Upper Extremity Assessment AROM: WFL PROM: WFL Strength: Exceptions: BUE strength: 3/5 Vision: no visual deficits Hearing: normal Bed Mobility Supine to sit: SBA Scooting: Supervision HOB elevated; no use of bed rail. Some cueing for sternal precautions. FAIR sitting balance. Transfers/Functional Mobility Sit to stand: Supervision Stand to sit: Supervision Toilet: Supervision Sitting balance: Modified Independent Standing balance: Supervision Functional mobility: Supervision Patient supervision for sit-stand from EOB. Patient ambulated into bathroom with no device. Patient supervision for transfer on/off commode. Patient requesting to ambulate in dc; item retrieval and obstacle negotiation completed with supervision. Patient with FAIR standing balance and good tolerance. Device(s) used: none and rollator AM-PAC AM-PAC Inpatient Daily Activity Raw Score: 24 ADL Inpatient [facility] G-Code Modifier: CH Plan No skilled acute OT indicated at this time. Please reconsult should changes occur. Safety/Education Safety Safety Devices in place: All fall risk precautions in place, call light within reach, left in chair, gait belt, and nurse notified Restraints: No Education Education Given To: patient Education Provided: OT Role, Plan of Care, Precautions, and Discharge Recommendations Education Method: Verbal Barriers to Learning: None Education Outcome: Verbalized Understanding Goals Patient Stated Goal: to go home Therapy Time Individual Co-treatment Time In 1038 Time Out 1102 Minutes 24 Timed Code Treatment Minutes: 10 Minutes (self care- 1) Amena Tobin OT Patient's Occupational Therapy Plan of Care supervision is transferred to a [facility] Therapy Services Occupational Therapist. Goals and/or treatment plan was established in collaboration with patient/family/other representatives. [facility] 06-02-2023 Note PHYSICAL THERAPY [facility] Initial Evaluation Name/MRN: Terry Lacy ([id number]) Evaluation Date: 06/02/2023 Date of : 1960 Admission Date: 05/31/2023 2:33 PM Age: 62 y.o. Room/Bed: T1-124/T1-124 A Discharge Recommendation: Home with assist PRN Assessment IMPRESSION: Pt is 1 day s/p CABGx5 with moderate levels of pain that limits his ROM and functional mobility. Pain noted with all functional mobility, but was able to complete. Decreased endurance noted during functional ambulation. Pt does not currently own any assistive devices. Current device recommendations pending based on recovery prior to discharge. Pt states that he is able to reside at his place of employment in a SNF ([place]) as he is concerned about being discharged and living alone. Current discharge recommendation is home with assistance PRN. Diagnosis: CAD involving [place]western sh[place] heart with angina pectoris, unspecified vessel or lesion type; s/p CABGx5 05/31 Prognosis: good Performance Deficits /Impairments: Increased Pain, Decreased Functional Mobility, and Decreased Endurance Decision Making: Low Complexity Subjective Pt was in bed at start of session and was agreeable to PT eval. RN OK for PT assessment/treatment. Pain: 0-10 pain scale: 5/10 Location: chest (around tubes and incisions) Past Medical History: Past Medical History: Diagnosis Date Atherosclerosis of coronary artery [place] Hemorrhoids History of alcohol abuse History of inferior wall myocardial infarction History of pulmonary embolism Hyperlipidemia Hypertension Mucous cyst of digit of hand NSVT (nonsustained ventricular tachycardia) ([facility]) Past Surgical History: Past Surgical History: Procedure Laterality Date CORONARY STENT PLACEMENT 2008 Admission Diagnosis: Patient Active Problem List Diagnosis Date Noted Coronary artery disease involving northwestern shoshone heart with angina pectoris, unspecified vessel or lesion type ([facility]) 05/31/2023 Medical Precautions: No active isolations Proper PPE donned/doffed in accordance with facility standards. Fall Risk: [place] Fall Risk Score: 35 (Medium Risk) Precautions/Restrictions: Sternal Precautions: Move in the tube precautions Lines/Drains/Airways: Chest tubes x2, temporary pacemaker, PIV RT, introducer RT IJV, isaac catheter. Family/Caregiver Present: none Overall Cognitive Status: WNL Overall Orientation Status: Oriented x4 Vision: not assessed this session Hearing: normal Social/Functional History Patient admitted from home. Lives With: Alone Type of Home: single family home Home Layout: Split Level Home Home Access: Stairs to Enter without Rails (# of stairs: 1) + stairs in home without railings. Pt unsure of exact number. Bathroom Shower/Tub: Toilet: N/A Home Equipment: none Homemaking Responsibilities: Independent Receives Help From: None Active Assistant Guest Services Manager: Yes Prior Level of Function ADL Assistance: Independent Ambulation Assistance: Independent Transfer Assistance: Independent Objective Lower Extremity Assessment AROM: WFL PROM: WFL *UE ROM limited second to sternal precautions* Strength: WNL Bed Mobility: Supine to sit: Min Assist Sit to supine: Min Assist Transfers Sit to stand: Min Assist Stand to sit: Min Assist Ambulation Ambulation 1 Assistive device(s) used: C[employer]ks2Customers Assist level: Contact Guard Distance (ft): 355 Quality of gait: antalgic, wide ASHLEE, postural sway Verbal cueing provided throughout ambulation for upright posture in order to open chest and prevent kyphosis. *several breaks taken in standing d/t pain* Balance: Posture: fair Static sitting balance - 3 minutes - Supervision with verbal and tactile cueing provided for appropriate posturing and to limit pressing through arms. Sitting - Static: Supervision Sitting - Dynamic: Min Assist Standing - Static: SBA Standing - Dynamic: Min Assist Exercises: Shoulder shrugs- 1x10 Arm swings- 1x10 each side Shoulder blade squeezes- 1x10 *Tactile cueing provided between scapulae to promote appropriate retraction Arm circles- 10x each direction Trunk rotation- x7 each direction Downward cross- x7 *All exercises performed with PT visual demonstration and verbal/tactile cueing as needed for appropriate form and postural positioning. Pt educated to only perform exercises within pain tolerance and to make sure they are following all ROM precautions established by surgical protocol (I.e UE movement >90 degrees).* Outcome Measures AM-PAC How much HELP from another person do you currently need Turning from your back to your side while in a flat bed without using bedrails?: A Little Moving from lying on your back to sitting on the side of a flat bed without using bedrails?: A Little Moving to and from a bed to a chair (including a wheelchair)?: A Little Standing up from a chair using your arms (wheelchair or bedside chair)?: A Little Walking in a (more content not included)... [facility] 06-02-2023 Note Nutrition Assessment Type and Reason for Visit: Initial, Consult, Patient Education (post open heart surgery) Nutrition Recommendations/Plan: Continue diet as ordered Per MNT protocol, will order Ensure HP BID to promote post-op PO intake and healing Provided heart healthy diet handout with [facility] RD phone number to pt. Will return prior to discharge for education needs assessment (as able) RD will monitor overall nutrition status and will follow weekly Malnutrition Assessment: Malnutrition Status: At risk for malnutrition (Comment) (s/p open heart surgery) Nutrition Assessment: Pt was referred from [place] due to MVCAD. Pmhx including RCA and PDA stents in 2008, HTN, Hx of NSVT, Hx of PE, former tobacco use and current ETOH use. He was see in OP setting 05/31/23 and noted to have unstable angina with palpitations and he was direct admitted for urgent CABG. Preoperative testing was completed and he consented to surgical revascularization. He underwent CABG x5 on 05/31. Extubated with diet ordered. Pt reports he tolerated breakfast well, had a western scramble, muffin, and banana bread with OJ, ate 100% of breakfast, follows a general diet, denies weight loss, eating well prior to admission, no difficulty with chewing or swallowing, NKFA. He denies hx of diet education. RD provided heart healthy handout with [facility] RD phone number and advised that RD will return prior to discharge for education. Pt is agreeable to ONS Estimated Daily Nutrient Needs: Energy Requirements Based On: Kcal/kg Weight Used for Energy Requirements: [place] (25-30 kcal/kg) Weight for Energy Calculation (kg): 72.6 kg Total Energy Requirements (kcals/day): 2518-9710 Weight Used for Protein Requirements: [place] (1.2-1.5 g/kg) Weight in Kg Used for Protein Requirements: 72.6 kg Estimated Total Protein (g/day): 87-109 Estimated Daily Total Fluid (ml/day): per MD Nutrition Related Findings: Nutrition History: Independent of feeding. Lives with: Alone GI symptoms: None at this time. Humphrey Scale Score: 20 .Wound Type: Surgical Incision Net IO Since Admission: 1,282.13 mL [06/02/23 1343] Edema: RUE Edema: None, LUE Edema: None, RLE Edema: Other (Comment) (none), LLE Edema: Other (Comment) (none) Bowel Sounds (All Quadrants): Hypoactive Abdomen Inspection: Soft, Rounded Last BM Date: 05/31/23 Labs and meds reviewed: acetaminophen, 1,000 mg, Oral, q8h amLODIPine, 2.5 mg, Oral, Daily aspirin, 81 mg, Oral, Daily ceFAZolin, 2,000 mg, IntraVENous, q8h chlorhexidine, 15 mL, Mouth/Throat, BID insulin lispro, 0-6 Units, SubCUTAneous, TID WC And insulin lispro, 0-6 Units, SubCUTAneous, Nightly ketorolac, 15 mg, IntraVENous, q6h Lidocaine, 1 patch, Topical, Daily mupirocin, , Nasal, BID polyethylene glycol (PEG) 3350, 17 g, Oral, Daily rosuvastatin, 40 mg, Oral, Daily senna-docusate sodium, 2 tablet, Oral, Nightly sodium chloride 0.9%, 10 mL, IntraVENous, 2 times per day BMP: Recent Labs 05/31/23 1501 06/01/23 1245 06/02/23 0004 NA 137 139 136 K 4.0 4.3 4.5 CL 103 109* 107 CO2 28 23 22 BUN 12 14 17 CREATININE 0.75 0.79 0.83 GLUCOSE 91 118* 111* CALCIUM 9.4 8.7 7.9* MG 2.0 2.9* 2.2 PHOS 3.2 3.2 -- Recent Labs 06/02/23 0004 06/02/23 0154 06/02/23 0410 06/02/23 0618 06/02/23 0821 06/02/23 1222 POCGLU 115* 117* 99 111* 110* 125* Lab Results Component Value Date HGBA1C 6.2 (H) 05/31/2023 Current Nutrition Therapies: Adult diet Regular; Low Sodium (2 gm); 5 carb choices (75 gm/meal) Current Oral Intake Average Meal Intake: 76-100% Average Supplements Intake: None Ordered Anthropometric Measures: Height: 175.3 cm (5' 9) Current Body Weight: 110 kg (242 lb 4.6 oz) (06/01) Admission Body Weight: 108 kg (239 lb 1.6 oz) (standing scale 05/31) [place] Body Weight (lbs) (Calculated): 160 lbs [place] Body Weight (Kg) (Calculated): 73 kg % [place] Body Weight (Calculated): 151.4 % BMI (kg/m2) (Calculated): 35.8 BMI Categories: Obese Class 2 (BMI 35.0 -39.9) Wt Readings from Last 10 Encounters: 06/02/23 110 kg (242 lb 4.6 oz) 05/31/23 111 kg (245 lb) Nutrition Diagnosis: Increased nutrient needs related to inadequate protein-energy intake as evidenced by wounds (surgical) Nutrition Interventions: Food and/or Nutrient Delivery: Start Oral Nutrition Supplement, Continue Current Diet Nutrition Education/Counseling: No recommendation at this time, Education initiated, Education needed Coordination of Nutrition Care: Continue to monitor while inpatient Goals: Goals: PO intake 75% or greater, by next RD assessment Nutrition Monitoring and Evaluation: Behavioral-Environmental Outcomes: Knowledge or Skill Food/Nutrient Intake Outcomes: Food and Nutrient Intake, Supplement Intake Physical Signs/Symptoms Outcomes: Biochemical Data, GI Status, Skin, Weight Discharge Planning: Too soon to determine Domitila Herrera RD, LD Contact: *[phone] or via [employer] [facility] 06-02-2023 Consult note Associated Order (s): IP CONSULT TO DIETITIAN Nutrition Assessment Type and Reason for Visit: Initial, Consult, Patient Education (post open heart surgery) Nutrition Recommendations/Plan: Continue diet as ordered Per MNT protocol, will order Ensure HP BID to promote post-op PO intake and healing Provided heart healthy diet handout with [facility] RD phone number to pt. Will return prior to discharge for education needs assessment (as able) RD will monitor overall nutrition status and will follow weekly Malnutrition Assessment: Malnutrition Status: At risk for malnutrition (Comment) (s/p open heart surgery) Nutrition Assessment: Pt was referred from [place] due to MVCAD. Pmhx including RCA and PDA stents in 2008, HTN, Hx of NSVT, Hx of PE, former tobacco use and current ETOH use. He was see in OP setting 05/31/23 and noted to have unstable angina with palpitations and he was direct admitted for urgent CABG. Preoperative testing was completed and he consented to surgical revascularization. He underwent CABG x5 on 05/31. Extubated with diet ordered. Pt reports he tolerated breakfast well, had a western scramble, muffin, and banana bread with OJ, ate 100% of breakfast, follows a general diet, denies weight loss, eating well prior to admission, no difficulty with chewing or swallowing, NKFA. He denies hx of diet education. RD provided heart healthy handout with [facility] RD phone number and advised that RD will return prior to discharge for education. Pt is agreeable to ONS Estimated Daily Nutrient Needs: Energy Requirements Based On: Kcal/kg Weight Used for Energy Requirements: [place] (25-30 kcal/kg) Weight for Energy Calculation (kg): 72.6 kg Total Energy Requirements (kcals/day): 9390-8769 Weight Used for Protein Requirements: [place] (1.2-1.5 g/kg) Weight in Kg Used for Protein Requirements: 72.6 kg Estimated Total Protein (g/day): 87-109 Estimated Daily Total Fluid (ml/day): per MD Nutrition Related Findings: Nutrition History: Independent of feeding. Lives with: Alone GI symptoms: None at this time. Humphrey Scale Score: 20 .Wound Type: Surgical Incision Net IO Since Admission: 1,282.13 mL [06/02/23 1343] Edema: RUE Edema: None, LUE Edema: None, RLE Edema: Other (Comment) (none), LLE Edema: Other (Comment) (none) Bowel Sounds (All Quadrants): Hypoactive Abdomen Inspection: Soft, Rounded Last BM Date: 05/31/23 Labs and meds reviewed: acetaminophen, 1,000 mg, Oral, q8h amLODIPine, 2.5 mg, Oral, Daily aspirin, 81 mg, Oral, Daily ceFAZolin, 2,000 mg, IntraVENous, q8h chlorhexidine, 15 mL, Mouth/Throat, BID insulin lispro, 0-6 Units, SubCUTAneous, TID WC And insulin lispro, 0-6 Units, SubCUTAneous, Nightly ketorolac, 15 mg, IntraVENous, q6h Lidocaine, 1 patch, Topical, Daily mupirocin, , Nasal, BID polyethylene glycol (PEG) 3350, 17 g, Oral, Daily rosuvastatin, 40 mg, Oral, Daily senna-docusate sodium, 2 tablet, Oral, Nightly sodium chloride 0.9%, 10 mL, IntraVENous, 2 times per day BMP: Recent Labs 05/31/23 1501 06/01/23 1245 06/02/23 0004 NA 137 139 136 K 4.0 4.3 4.5 CL 103 109* 107 CO2 28 23 22 BUN 12 14 17 CREATININE 0.75 0.79 0.83 GLUCOSE 91 118* 111* CALCIUM 9.4 8.7 7.9* MG 2.0 2.9* 2.2 PHOS 3.2 3.2 -- Recent Labs 06/02/23 0004 06/02/23 0154 06/02/23 0410 06/02/23 0618 06/02/23 0821 06/02/23 1222 POCGLU 115* 117* 99 111* 110* 125* Lab Results Component Value Date HGBA1C 6.2 (H) 05/31/2023 Current Nutrition Therapies: Adult diet Regular; Low Sodium (2 gm); 5 carb choices (75 gm/meal) Current Oral Intake Average Meal Intake: 76-100% Average Supplements Intake: None Ordered Anthropometric Measures: Height: 175.3 cm (5' 9) Current Body Weight: 110 kg (242 lb 4.6 oz) (06/01) Admission Body Weight: 108 kg (239 lb 1.6 oz) (standing scale 05/31) [place] Body Weight (lbs) (Calculated): 160 lbs [place] Body Weight (Kg) (Calculated): 73 kg % [place] Body Weight (Calculated): 151.4 % BMI (kg/m2) (Calculated): 35.8 BMI Categories: Obese Class 2 (BMI 35.0 -39.9) Wt Readings from Last 10 Encounters: 06/02/23 110 kg (242 lb 4.6 oz) 05/31/23 111 kg (245 lb) Nutrition Diagnosis: Increased nutrient needs related to inadequate protein-energy intake as evidenced by wounds (surgical) Nutrition Interventions: Food and/or Nutrient Delivery: Start Oral Nutrition Supplement, Continue Current Diet Nutrition Education/Counseling: No recommendation at this time, Education initiated, Education needed Coordination of Nutrition Care: Continue to monitor while inpatient Goals: Goals: PO intake 75% or greater, by next RD assessment Nutrition Monitoring and Evaluation: Behavioral-Environmental Outcomes: Knowledge or Skill Food/Nutrient Intake Outcomes: Food and Nutrient Intake, Supplement Intake Physical Signs/Symptoms Outcomes: Biochemical Data, GI Status, Skin, Weight Discharge Planning: Too soon to determine Domitila Herrera RD, LD Contact: *[phone] or via [employer] chat [facility] 06-02-2023 Note Formatting of this n ote might be different from the original. Care Managment Initial Assessment Date: 06/02/2023 Patient Name: Sylvester Lacy : 1960 Patient Information Source of Information: Patient Cognition/Language: WFL - Within Functional Limits Permission given to speak with patient lead generation representative/caregiver as indicated: Yes Confirmation of Payer with patient/family: Yes Payer Name: [place]: Yes () Confirmation of Primary Care Physician: Confirmed PCP Name: Dr. Engle Seen in last 2 years?: Yes Primary Caregiver: Self If assistance needed, confirmed caregiver ready, willing and able to care for patient at discharge: Confirmed with: Living Arrangements Current Residence: House Number of Floors 1 Number of Entry Steps: 1 Bed/Bath Levels: Both first floor Facility: Facility Name: Plan to Return: Lives with: Alone Support Systems: Family members, Friends/neighbors Activities of Daily Living Ambulation: Independent Bathing/Dressing: Independent Elimination/Continence/Toileting: Independent Feeding: Independent Who Assists with Activities of Daily Living: Instrumental Activities of Daily Living Prescription Coverage: No Pharmacy Used: [facility] or [facility] Medication Management: Independent Transportation/Shopping: Independent Transportation Mode: Car Needs Assistance with Transportation at Discharge: No Meal Preparation: Independent Laundry/Cleaning: Independent Finances/Bill Paying: Independent Communication: Independent Types of Care Services/Equipment Utilized Care Services: Dialysis Type: Durable Medical Equipment: Patient's Goal/Discharge Plan Patient expects to be discharged to: SNF Discharge Planning Actions: Continue to follow Patient's Choice Rights and [employer] and Collaborative Relationships Disclosed as Indicated for Post-Acute Care: Interdisciplinary Team Engagement: PT/OT, Home Health Care Social Work Referral for: Additional Information: Patient admitted to [facility] ICU s/p CABG x 5 POD # 1. Spoke with patient at bedside, introduced self and role. Patient from home alone, is independent, has PCP but no prescription coverage-uses the [facility] or [facility], will have a ride home but concerned with home going alone and agreeable to SNF ([place]) if recommended by therapy. Daphne Chou RN [facility] 06-02-2023 Note Formatting of this n ote might be different from the original. Care Managment Initial Assessment Date: 06/02/2023 Patient Name: Sylvester Lacy : 1960 Patient Information Source of Information: Patient Cognition/Language: WFL - Within Functional Limits Permission given to speak with patient lead generation representative/caregiver as indicated: Yes Confirmation of Payer with patient/family: Yes P[place] Name: [place]: Yes () Confirmation of Primary Care Physician: Confirmed PCP Name: Dr. Engle Seen in last 2 years?: Yes Primary Caregiver: Self If assistance needed, confirmed caregiver ready, willing and able to care for patient at discharge: Confirmed with: Living Arrangements Current Residence: House Number of Floors 1 Number of Entry Steps: 1 Bed/Bath Levels: Both first floor Facility: Facility Name: Plan to Return: Lives with: Alone Support Systems: Family members, Friends/neighbors Activities of Daily Living Ambulation: Independent Bathing/Dressing: Independent Elimination/Continence/Toileting: Independent Feeding: Independent Who Assists with Activities of Daily Living: Instrumental Activities of Daily Living Prescription Coverage: No Pharmacy Used: [facility] or [facility] Medication Management: Independent Transportation/Shopping: Independent Transportation Mode: Car Needs Assistance with Transportation at Discharge: No Meal Preparation: Independent Laundry/Cleaning: Independent Finances/Bill Paying: Independent Communication: Independent Types of Care Services/Equipment Utilized Care Services: Dialysis Type: Durable Medical Equipment: Patient's Goal/Discharge Plan Patient expects to be discharged to: SNF Discharge Planning Actions: Continue to follow Patient's Choice Rights and [employer] and Collaborative Relationships Disclosed as Indicated for Post-Acute Care: Interdisciplinary Team Engagement: PT/OT, Home Health Care Social Work Referral for: Additional Information: Patient admitted to [facility] ICU s/p CABG x 5 POD # 1. Spoke with patient at bedside, introduced self and role. Patient from home alone, is independent, has PCP but no prescription coverage-uses the [facility] or [facility], will have a ride home but concerned with home going alone and agreeable to SNF ([place]) if recommended by therapy. Daphne Chou RN [facility] 06-02-2023 Note Received referral an d reviewed chart. Unable to discuss Phase II Cardiac Rehab Referral with Sylvester Lacy at this time. Will follow to discuss cardiac rehab when appropriate. Patient will be contacted at home if discharged prior to discussion. [facility] 06-02-2023 Consult note Associated Order (s): IP CONSULT TO CARDIAC REHAB Received referral and reviewed chart. Unable to discuss Phase II Cardiac Rehab Referral with Sylvester Lacy at this time. Will follow to discuss cardiac rehab when appropriate. Patient will be contacted at home if discharged prior to discussion. [facility] 06-01-2023 Note Patient: Terry Lacy Procedure Summary Date: 06/01/23 Room / Location: [address] Operating Room Anesthesia Start: 728 Anesthesia Stop: 1332 Procedures: CORONARY ARTERY BYPASS GRAFT, TRANSESOPHAGEAL ECHOCARDIOGRAM (Chest) Echocardiography transesophageal real-time Diagnosis: Atherosclerotic heart disease of [place]western shosh[place] coronary artery without angina pectoris (Atherosclerotic heart disease of [place]western shosh[place] coronary artery without angina pectoris [I25.10]) Surgeons: Gisella Huang MD Responsible Provider: George Reid MD Anesthesia Type: general ASA Status: 4 Anesthesia Type: general Vitals Value Taken Time BP 145/80 06/01/23 1336 Temp 97.6 06/01/23 1336 Pulse 79 06/01/23 1336 Resp 10 06/01/23 1336 SpO2 99 % 06/01/23 133 Vitals shown include unfiled device data. Anesthesia Post Evaluation Patient location during evaluation: ICU Patient participation: waiting for patient participation Level of consciousness: intubated and sedated Pain management: adequate Airway patency: patent Dental Injury: no Cardiovascular status: acceptable and hemodynamically stable Respiratory status: acceptable, ETT, intubated and ventilator Hydration status: acceptable Nausea/Vomiting: controlled No notable events documented. Patient can be discharged once all PACU criteria has been met. [facility] 06-01-2023 Note Patient: Terry Lacy Procedure Summary Date: 06/01/23 Room / Location: [address] Operating Room Anesthesia Start: 728 Anesthesia Stop: 1332 Procedures: CORONARY ARTERY BYPASS GRAFT, TRANSESOPHAGEAL ECHOCARDIOGRAM (Chest) Echocardiography transesophageal real-time Diagnosis: Atherosclerotic heart disease of [place] coronary artery without angina pectoris (Atherosclerotic heart disease of [place] coronary artery without angina pectoris [I25.10]) Surgeons: Gisella Huang MD Responsible Provider: George Reid MD Anesthesia Type: general ASA Status: 4 Anesthesia Type: general Vitals Value Taken Time BP 145/80 06/01/23 1334 Temp 97.6 06/01/23 1334 Pulse 83 06/01/23 1334 Resp 8 06/01/23 1334 SpO2 99 % 06/01/23 1333 Vitals shown include unfiled device data. Anesthesia Post Evaluation Patient location during evaluation: ICU Patient participation: complete - patient participated Post-procedure mental status: intubated / sedated. Pain score: 0 Pain management: satisfactory to patient Multimodal analgesia pain management approach Airway patency: patent Two or more strategies used to mitigate risk of obstructive sleep apnea Cardiovascular status: acceptable and hemodynamically stable Respiratory status: ETT Hydration status: acceptable No notable events documented. MIPS #430 PONV Patient received an inhalational anesthetic (4554F) Patient exhibits three or more risk factors for PONV (4556F) Patient received at leaset 2 prophylactic Rx PONV anti-emtic agents of different classes preop and/or intraop (G9775) MIPS # 424 Perioperative Temperature Management Anesthesia time was 60 minutes or longer (4255F) Anesthesai administered was General (inhalational or TIVA) or Neuraxial block (X0424) At least one body temperature greater than 95.8F/35.5C achieved within the 30 mins immediately prior to or the 15 minutes immediately following anesthesia end time (G9771) MIPS #477 Multimodal Pain Management Not emergent case Patient was not administered multimodal pain management (G2149) Intubated patient (G2149) MIPS #404 Anesthesiology Smoking Abstinence The patient is not a current smoker (e.g. cigarette, cigar, pipe, e-cigarette/vaping/marijuana) If no stop here (XX404) I completed my handoff to the receiving clinician during which we: 1. Identified the patient 2. Identified the responsible provider 3. Reviewed the pertinent medical history 4. Discussed the surgical course 5. Reviewed intra-op anesthesia management and issues during anesthesia 6. Set expectations for post-procedure period 7. Allowed opportunity for questions and acknowledgement of understanding. [facility] 06-01-2023 Evaluation note Diagnosis Onset Date Resolution Hyperlipidemia chronic August 23, 2024 8:09am Hypertension chronic August 23 8:09am S/P CABG x 5 June 01, 2023 chronic August 23, 2024 8:09am [facility] Work Phone: 1(331) 984-199403-07-2024 Consult note* Lamar DO Ary - 06/01/2023 1:46 PM ESTAssociated Order(s): IP CONSULT TO ENDOCRINOLOGY Department of Internal Medicine Division of Endocrinology, Diabetes, & Metabolism Endocrinology Note Patient Name: Sylvester Lacy : 1960 AGE: 62 y.o. Room[facility]Bed: [facility] A Admission Date: 05/31/2023 Visit Date: 06/01/2023 Reason for Endocrine Consult: Post Op Heart Surgery Provider/Team Requesting Consult: Darion Lopes, HIGH RISK OB-ROTARY DRILL OPERATOR PCP: Crissy Engle DO Outpt Chassis Engineer: No ASSESSMENT: Severe Multivessel CAD s/p CABG Prediabetes (A1c 6.2%) Hx of AL s/p stent to RCA and PDA in 2008 Hx of PE Hx of NSVT Hypertension Hx of tobacco use PLAN: - On post-surgical insulin regimen with specified glucose parameters. Will monitor over the next 24hours for need to continue insulin drip. - POCT q1 hr - When able to eat recommend carb control diet - Recommend prediabetes counseling to reduce likelihood of progression to T2DM - Hypoglycemia management per protocol ANTICIPATED ENDOCRINE HOME GOING RECOMMENDATIONS: Optimized for Discharge from Endocrine standpoint: No Home Going Endocrine Rx Recommendations-- TBD Outpt Follow Up-- TBD SUBJECTIVE/HPI: CHIEF COMPLAINT: CAD with symptoms of Unstable Angina Terry Bambi is a 62 yo male with a past medical history of severe triple-vessel disease noted on heart cath (05/19/23), hx of inferior AL s/p stent to RCA and PDA (2008), hx of PE, hx of NSVT, hypertension, former smoker, hx of alcohol use who follows with [place]. [facility] on 05/[facility]23 from cardiothoracic surgeon's office for urgent CABG. A CABG x5 was performed on 05/31. Now in CCU. Remains intubated and sedated. VS have been stable. Labwork significant for hgb 8.9 and hematocrit 27.1. Remains on nitroglycerin gtt, propofol infusion, NS 0.45% infusion, and insulin drip. Sister at bedside states he has never had a history of diabetes, thyroid disease, adrenal abnormalities. Denies chronic steroid use. Biological mother with diabetes mellitis. Glucose Date/Time Value Ref Range Status 06/01/2023 01:29 PM 102 (H) 70 - 100 mg/dL Final Review of Systems Reason unable to perform ROS: Patient intubated and sedated. ROS negative except for those mentioned in HPI. OBJECTIVE: Vitals: 06/01/23 0545 06/01/23 0600 06/01/23 0700 06/01/23 1329 BP: 152/90 156/88 Pulse: 68 69 73 89 Resp: 18 (!) 11 SpO2: 93% 95% 94% Weight: Height: Physical Exam Constitutional: General: He is not in acute distress. Appearance: He is diaphoretic. He is not ill-appearing or toxic-appearing. Comments: Intubated and sedated HENT: Head: Normocephalic. Mouth/Throat: Mouth: Mucous membranes are moist. Eyes: Extraocular Movements: Extraocular movements intact. Cardiovascular: Rate and Rhythm: Normal rate and regular rhythm. Pulses: Normal pulses. Heart sounds: Normal heart sounds. No murmur heard. No friction rub. No gallop. Comments: Surgical bandage in place Pulmonary: Effort: No respiratory distress. Breath sounds: Normal breath sounds. No wheezing. Comments: Intubated Abdominal: General: Abdomen is flat. Bowel sounds are normal. There is no distension. Palpations: Abdomen is soft. Musculoskeletal: Right lower leg: No edema. Left lower leg: No edema. Comments: LUE and RLE bandage from graft sights Skin: General: Skin is warm. Neurological: Mental Status: He is oriented to person, place, and time. Motor: No weakness. Psychiatric: Mood and Affect: Mood normal. Behavior: Behavior normal. 24 hour intake/output: Intake/Output Summary (Last 24 hours) at 06/01/2023 1346 Last data filed at 06/01/2023 1333 Gross per 24 hour Intake 1951.13 ml Output 1505 ml Net 446.13 ml Diet: NPO diet Medications (as per EMR): HomeMeds: Current Outpatient Medications Medication Instructions aspirin 81 mg, Oral, Daily carvedilol (COREG) 6.25 mg, Oral, 2 times daily with meals cholecalciferol (CHOLECALCIFEROL) 25 mcg, Oral, Daily ibuprofen 800 mg, Oral, 3 times daily PRN isosorbide mononitrate ER (IMDUR) 60 mg, Oral, Daily, Do not crush or chew. Krill Oil 500 MG capsule 1 capsule, Oral, Daily lisinopril 2.5 mg, Oral, Daily Multiple Vitamin (multivitamin) capsule 1 capsule, Oral, Daily nitroglycerin (NITROSTAT) 0.4 mg, SubLINGual, Every 5 min PRN ranolazine (RANEXA) 1,000 mg, Oral, 2 times daily, Do not crush, chew, or split. rosuvastatin (CRESTOR) 10 mg, Oral, Daily zinc gluconate 50 mg, Oral, Daily Scheduled Meds:acetaminophen, 1,000 mg, Oral, q8h aspirin, 81 mg, Oral, Daily carvedilol, 6.25 mg, Oral, BID WC ceFAZolin, 2,000 mg, IntraVENous, q8h chlorhexidine, 15 mL, Mouth/Throat, BID Lidocaine, 1 patch, Topical, Daily mupirocin, , Nasal, BID niCARdipine, , , [START ON 06/02/2023] pantoprazole, 40 mg, IntraVENous, Daily polyethylene glycol (PEG) 3350, 17 g, Oral, Daily rosuvastatin, 40 mg, Oral, Daily senna-docusate sodium, 2 tablet, Oral, Nightly sodium chloride 0.9%, 10 mL, IntraVENous, 2 times per day sodium chloride 0.9%, 5-40 mL, IntraVENous, q12h Continuous Infusions:EPINEPHrine, 0.01-0.2 mcg/kg/min insulin regular, 1-50 Units/hr lactated ringers, 250 mL niCARdipine, 3-15 mg/hr nitroglycerin, 5-200 mcg/min, Last Rate: 40 mcg/min (06/01/23 0701) nitroglycerin, 5-300 mcg/min norepinephrine, 0.01-0.2 mcg/kg/min propofol, 5-50 mcg/kg/min sodium chloride, 20 mL/hr PRN Meds:PRN medications: acetaminophen OR acetaminophen, albumin human, calcium gluconate, dextrose, dextrose, EPINEPHrine, glucagon (rDNA), glucose, heparin, heparin, ipratropium-albuterol, lactated ringers, magnesium hydroxide, magnesium sulfate OR magnesium sulfate, morphine sulfate OR morphine sulfate, niCARdipine, niCARdipine, nitroglycerin, norepinephrine, ondansetron ODT OR ondansetron, ondansetron ODT OR ondansetron, oxyCODONE OR oxyCODONE, polyethylene glycol (PEG) 3350, potassium chloride OR potassium chloride OR potassium chloride, [START ON 06/02/2023] potassium chloride CR, sodium chloride, sodium chloride, sodium chloride 0.9%, sodium chloride 0.9% Diagnostic Workup: I reviewed pertinent Laboratory results, Radiographic results, and Other Clinical Notes at the timeof today's encounter. Labs: No components found for: LABA1C No components found for: EAG Lab Results Component Value Date NA 139 06/01/2023 K 4.3 06/01/2023 CL 109 (H) 06/01/2023 CO2 23 06/01/2023 BUN 14 06/01/2023 CREATININE 0.79 06/01/2023 GLUCOSE 118 (H) 06/01/2023 CALCIUM 8.7 06/01/2023 No results found for: CHLPL, CHOL No results found for: TRIG No results found for: HDL No results found for: LDLCALC No results found for: VLDL No results found for: CHOLHDLRATIO No results found for: [id number] No results found for: TSH, W9BDZUS, G7WRRYO, THYROIDAB Radiology reportsas per the Radiologist Radiology: POCT glucose meter Result Date: 06/01/2023 Performed by: [facility], [address] [place] [address] CLIA ID: [id number] CT chest wo IV contrast Result Date: 06/01/2023 [facility] 1960 [id number] Date/Time: 05/31/2023 16:53 Procedure: CT CHEST WO IV CONTRAST Ordering Provider: LOPES ANDREW Reason For Exam: assess aorta prior to open heart surgery CT CHEST WITHOUT CONTRAST: CLINICAL INDICATION: Open heart surgery. TECHNIQUE: Transaxial sequence from apices through the bases with 1 mm reconstruction interval. Coronal and sagittal reconstructions included. Dose reduction was employed with automated exposure control. COMPARISON: None. FINDINGS: Lungs/airways: Mild bibasilar atelectasis without evidence of pleural effusion, focal consolidation or pneumothorax. Pulmonary nodules: No discrete pulmonary nodules. Lower neck, lymph nodes, and mediastinum: The visualized thyroid glandis unremarkable. No mediastinal, hilar, or axillary lymphadenopathy based on size criteria. Trace hiatal hernia. Heart, pericardium, and thoracic vessels: The thoracic aorta is normal in caliber withmild atherosclerotic calcifications. Please note the aorta is approximately 2.3 cm posterior to the sternum at the level the aortic arch which is the closest proximity. The pulmonary artery is normalin size. The heart is normal in size without evidence of pericardial effusion. Severe coronary artery calcifications. (Please note the study is not tailored for coronary artery evaluation.) Upper abdomen: No abnormality in the visualized upper abdomen. Bones and soft tissues: The soft tissues are unremarkable. No suspicious osseous lesions. Mild multilevel discogenic degenerative changes. The aorta is approximately 2.3 cm posterior to the sternum at the level of the aortic arch which isthe closest proximity. There are mild atherosclerotic calcifications of the aorta without aneurysmal dilatation. Additional findings as described. Report Dictated on Electronically Signed By: Mitch Pierson MD Electronically Signed Date/Time: 06/01/2023 9:26 AM EST ECG 12 lead Sinus rhythm Left axis deviation Vascular US palmar arch evaluation Result Date: 05/31/2023 There is diminished right PPG waveforms with radial artery compression indicative of incomplete arch. There are no changes to left PPG signals with radial artery compression indicative of a complete arch. ECG 12 lead Sinus rhythm Left axis deviation History/Other: Past Medical History: Past Medical History: Diagnosis Date Atherosclerosis of coronary artery [place] fever Hemorrhoids History of alcohol abuse History of inferior wall myocardial infarction History of pulmonary embolism Hyperlipidemia Hypertension Mucous cyst of digit of hand NSVT (nonsustained ventricular tachycardia) (HCC) Past Surgical History: Past Surgical History: Procedure Laterality Date CORONARY STENT PLACEMENT 2008 Allergy(ies): No Known Allergies Family History: Family History Problem Relation Name Age of Onset Diabetes Mother Social History: Social History Tobacco Use Smoking status: Former Packs/day: 1.50 Years: 30.00 Additional pack years: 0.00 Total pack years: 45.00 Types: Cigarettes Quit date: 2014 Years since quittin.1 Smokeless tobacco: Never Substance Use Topics Alcohol use: Yes Alcohol/week: 12.0 standard drinks of alcohol Types: 12 Cans of beer per week Drug use: Never Portions of the information within this encounter were entered using an electronic dictation system. Best attempts were made to edit/proofread the information prior to note completion. Despite the review of information, some errors may remain. If there are questions related to the information contained within the note please contact the signing physician directly. Associated attestation - Janice Fiarchild MD - 06/01/2023 6:36 PM EST I performed a history and physical examination of the patient. I have reviewed the patient's chart including pertinent history, medications, labs, radiology, and other reports. I reviewed the resident/MATTY's note, agree with the documented findings and plan of care (with modifications noted if any),and discussed the management plan. Pt is s/p urgent CABG for unstable angina and MV-CAD on 06/01/23. Pt now extubated. He is awake and conversant. Sister at bedside. Known prediabetes. Never been on meds for DM. M with DM. [place]es [place]. Diet is high in fat; does not like vegetables. On statin/BB/TEVIN at home. On nitroglycerin and heparin drips. BG up to 140 now. Pt to be started on insulin drip. Lab Results Component Value Date HGBA1C 6.2 (H) 05/31/2023 Lab Results Component Value Date GLUCOSE 118 (H) 06/01/2023 CALCIUM 8.7 06/01/2023 NA 139 06/01/2023 K 4.3 06/01/2023 CO2 23 06/01/2023 CL 109 (H) 06/01/2023 BUN 14 06/01/2023 CREATININE 0.79 06/01/2023 BP 104/69 (BP Location: Right arm, Patient Position: Lying) Pulse 96 Temp 37.8 C (100 F) (Core) Resp 20 Ht 5' 9 (1.753 m) Wt 239 lb (108 kg) SpO2 97% BMI 35.29 kg/m awake, not in distress, RRR, chest incision dressed, good pulses, clear breath sounds, +chest tubes, abdomen soft, non-tender, no edema, no focal deficits. Dx: Prediabetes/stress hyperglycemia Severe MV-CAD s/p CABG Unstable angina Obesity Body mass index is 35.29 kg/m . HTN HLP Plan: - will continue insulin infusion per protocol then transition to subcutaneous insulin likely pipe - continue blood glucose monitoring - discussed postop hyperglycemia management and goals of therapy - patient will unlikely require any pharmacotherapy on discharge for hyperglycemia - discussed need for lifestyle modification and weight management - will follow Based on above assessment and management, combination of acute and chronic problems, exacerbations and/or acuity, this visit would be considered to be of moderate complexity. [facility] [id number] NoteArterial Line: Date/Time: 06/01/2023 7:40 AM An arterial line was placed Procedure performed using ultrasound guidance - Image permanently retained with wire or catheter in vein.in the Procedural for the following indication(s): continuous blood pressure monitoring and blood sampling needed. A 20 gauge (size), 1 and 3/4 inch (length), Arrow (type) catheter was placed, into the Right radial artery, secured by Tegaderm and tape. Events: patient tolerated procedure well with no complications. Staffing Performed: GROUNDS MANAGER Resident/GROUNDS MANAGER: Gertrudis Fritz APRN - [facility]03-07-2024 NoteAirway Date/Time: 06/01/2023 7:43 AM Urgency: scheduled Airway not difficult General Information and Staff Patient location during procedure: Procedural Resident/GROUNDS MANAGER: Barbara Mendoza APRN - GROUNDS MANAGER Performed: GROUNDS MANAGER Indications and Patient Condition Indications for airway management: anesthesia and airway protection Sedation level: Asleep Preoxygenated: yes Patient position: sniffing MILS maintained throughout Mask difficulty assessment: 1 - vent by mask Final Airway Details Final airway type: endotracheal airway Successful airway: ETT Cuffed: yes Successful intubation technique: direct laryngoscopy Facilitating devices/methods: intubating stylet Endotracheal tube insertion site: oral Blade: Akash Blade size: #3 ETT size (mm): 8.0 Cormack-Lehane Classification: grade IIa - partial view of glottis Placement verified by: chest auscultation and capnometry Measured from: lips ETT to lips (cm): 23 Number of attempts at approach: [address] [place], [place] 6886503-07-2024 NoteCentral Venous Line: Date/Time: 06/01/2023 7:45 AM A central venous line was placed for the following indication(s): central venous access and CVP monitoring. Sterility preparation included the following: provider hand hygiene performed prior to central venous catheter insertion, all 5 sterile barriers used (gloves, gown, cap, mask, large sterile drape) during central venous catheter insertion, antiseptic used during central venous catheter insertion and skin prep agent completely dried prior to procedure. The patient was placed in Trendelenburg position. Right internal jugular vein was prepped. The site was prepped with Chlorhexidine. Catheter size: 8.5Fr. Catheter type: introducer Number of Lumens: single lumen During the procedure, the following specific steps were taken: target vein identified, needle advanced into vein and blood aspirated and guidewire advanced into vein. Procedure performed using ultrasound guidance - Image permanently retained with wire or catheter in vein. Sterile gel and probe cover used in ultrasound-guided central venous catheter insertion. Intravenous verification was obtained by ultrasound, venous blood return and transducer. Post insertion care included: all ports aspirated, all ports flushed easily, guidewire removed intact, Biopatch applied, line sutured in place and dressing applied. During the procedure the patient experienced: patient tolerated procedure well with no complications. 7.5 (size) Pulmonary Artery Catheter (PAC) was placed through the Introducer CVL in the right internal jugular vein. The PAC placement was confirmed by pressure tracing changes and secured at 48 cm (depth). The patient experienced the following events during the procedure: no complications. Staffing Performed: anesthesiologist Anesthesiologist: George Reid, [facility]03-07-2024 NoteDATE OF PROCEDURE: 06/01/2023 PREOPERATIVE DIAGNOSIS: Coronary artery disease Unstable angina POSTOPERATIVE DIAGNOSIS: Coronary artery disease Unstable angina PROCEDURE: 1. Coronary artery bypass grafting x 5 - Left internal mammary artery to the left anterior descending - Free left radial artery graft to the second obtuse marginal - Saphenous vein graft to the right posterior descending artery - Saphenous vein graft to the first diagonal - Saphenous vein graft to the second diagonal 2. Endoscopic left radial artery harvest 3. Endoscopic vein harvest, right lower extremity SURGEON: Gisella Huang MD TWISTING PRESS OPERATOR: SLY Cruz, ROTARY DRILL OPERATOR, HIGH RISK OB, BARGE CAPTAIN COMPLICATIONS: None intra-op CONDITION: Stable DESCRIPTION OF PROCEDURE: The patient was prepped and draped in the appropriate manner, having undergone general endotracheal anesthetic in addition to [place] catheter placement, arterial line, and isaac catheter placement. An antibiotic and a beta constance were administered pre-operatively and documented. Incision and conduit harvest/preparation: A midline sternotomy incision was utilized in standard fashion. The sternum was divided with the oscillating saw. The left internal mammary artery was taken down with clips and bovie cauterization. Papaverine was used. The right lower extremity saphenous vein was harvested via the endoscopic approach. The left radial artery was also harvested via the endoscopic approach. The patient was fully heparinized prior to dividing and prepping the mammary. Cannulation and cardiopulmonary bypass: After cannulation, the patient was placed on cardiopulmonary bypass support. Ascending aortic cross-clamp was applied. Antegrade cardioplegia (microplegia) was delivered till the heart was arrested in diastole. Cardioplegia was re-administered every 20 minutes while the ascending aorta was cross clamped. Aortic canula: 21 Fr soft flow angled cannula in distal ascending aorta Venous canula: 29/29 Fr triple stage cannula via right atrial appendage Cardioplegia: Antegrade via cannula in the mid ascending aorta. Coronary artery bypass: Bypasses were performed to the [place] targets using the conduits listed above with 7-0 Prolene distally and 6-0 Prolene proximally to the ascending aorta. The left internal mammary artery was anastomosed to the LAD with 7-0 Prolene. Of note, the epicardial exposed area of the ramus had the stent and an anastomosis could not be performed. The rest of the vessel was intra-myocardial. The first obtuse marginal vessel was intra-myocardial and could not be seen on the epicardial surface. CPB wean and decannulation: The patient was given a dose of warm blood cardioplegia. Valsalva breaths were mechanically administered and the aorta was unclamped. The heart returned to normal sinus rhythm. Pacing wire was placed. The DLP left in place as a root vent. The patient was rewarmed and weaned from cardiopulmonary bypass support without difficulty. Protamine was administered and cannulas were removed without difficulty. Three 24 Fr chasity drains were placed, one in the each pleural space and one in the mediastinum. Closure: Hemostasis was achieved. The sternum and incision were closed with sternal wires, running 0, 2-0 and 4-0 stitches. Dressings applied, and the patient was transferred to the cardiovascular intensive care unit in stable condition. Cardiopulmonary bypass time: 102 minutes Cross clamp time: 115 minutes Intra-op PAM: No significant abnormalities Gisella Huang MD [facility]* Home Care - Ynes Bush RN - 06/01/2023 8:48 AM EST Railcar Switchman following case for Discharge Needs. [facility]03-07-2024 Note* Home Care - Ynes Bush RN - 06/01/2023 8:48 AM EST Railcar Switchman following case for Discharge Needs. [facility]03-07-2024 NotePatient: Terry Lacy Procedure Information Date/Time: 06/01/23729 Procedures: CORONARY ARTERY BYPASS GRAFT, TRANSESOPHAGEAL ECHOCARDIOGRAM (Chest) Echocardiography transesophageal real-time Location: [facility] OR [address] [place] [address] Operating Room Surgeons: Gisella Huang MD Relevant Problems Cardio (+) Coronary artery disease involving [place] heart with angina pectoris, unspecified vessel or lesion type (HCC) Past Medical History: Past Medical History: No date: Atherosclerosis of coronary artery No date: Hay fever No date: Hemorrhoids No date: History of alcohol abuse No date: History of inferior wall myocardial infarction No date: History of pulmonary embolism No date: Hyperlipidemia No date: Hypertension No date: Mucous cyst of digit of hand No date: NSVT (nonsustained ventricular tachycardia) (HCC) Past Surgical History: Past Surgical History: 2009: CORONARY STENT PLACEMENT Social History: TOBACCO: reports that he quit smoking about 9 years ago. His smoking use included cigarettes. He has a 45 pack-year smoking history. He has never used smokeless tobacco. ETOH: reports current alcohol use of about 12.0 standard drinks of alcohol per week. Social History Substance and Sexual Activity Drug Use Never Family History: Family History Problem Relation Name Age of Onset Diabetes Mother Screening: unknown Clinical information reviewed: Allergies Meds Physical Exam Airway Mallampati: II TM distance: >3 FB Neck ROM: full Mouth Open: normalendotracheal tube not in place Cardiovascular Dental Comments: Permanent molar bridges dentition normal Pulmonary Abdominal Anesthesia Plan patient is NPO appropriate Any family history or previous problems with anesthesia no (Adopted) ASA 4 general Any family history or previous problems with anesthesia no (Adopted) The patient is not a current smoker. Anesthetic plan and risks discussed with patient. Anesthesia Soto Considerations Note Left Radial Shafer Central access Post-op intubation ARIANNA Screening Labs: Lab Results Component Value Date WBC 5.3 05/31/2023 HGB 13.4 05/31/2023 HCT 40.3 05/31/2023 MCV 87.2 05/31/2023 PLT 242 05/31/2023 Lab Results Component Value Date NA 137 05/31/2023 K 4.0 05/31/2023 CL 103 05/31/2023 CO2 28 05/31/2023 BUN 12 05/31/2023 CREATININE 0.75 05/31/2023 GLUCOSE 91 05/31/2023 CALCIUM 9.4 05/31/2023 PROT 7.3 05/31/2023 ALKPHOS 74 05/31/2023 AST 32 05/31/2023 ALT 34 05/31/2023 EGFR >90.0 05/31/2023 No echocardiogram results found for the past 14 days 05/31/23 ECG 12-LEAD (Preliminary) This result has not been signed. Information might be incomplete. Impression Sinus rhythm Left axis deviation Per note, pt with history of CAD with stenting of RCA and PDA in 2008, HTN. Pt had a stress test at the [facility] December 2022 which demonstrated no reversible ischemia, fixed inferior defect likely represents attenuation artifact versus small possible scar. Pt saw Cardiology in February 2023 with complaints of chest pain with exertion in the last 4 years. Echocardiogram was ordered and completed on 04/07/23 which demonstrated an EF of 55%, LV normal, stage 1 diastolic dysfunction, pulmonary artery systolic pressure is 30 mmHg. Pt then underwent a heart catheterization on 05/19/23 which showed severe triple-vessel disease with preserved left ventricular systolic function.[facility] [id number] Note* Op Note - Gisella Huang MD - 06/01/2023 7:29 AM EST DATE OF PROCEDURE: 06/01/2023 PREOPERATIVE DIAGNOSIS: Coronary artery disease Unstable angina POSTOPERATIVE DIAGNOSIS: Coronary artery disease Unstable angina PROCEDURE: 1. Coronary artery bypass grafting x 5 - Left internal mammary artery to the left anterior descending - Free left radial artery graft to the second obtuse marginal - Saphenous vein graft to the right posterior descending artery - Saphenous vein graft to the first diagonal - Saphenous vein graft to the second diagonal 2. Endoscopic left radial artery harvest 3. Endoscopic vein harvest, right lower extremity SURGEON: Gisella Huang MD TWISTING PRESS OPERATOR: SLY Cruz, CHILO, HIGH RISK OB, SLY COMPLICATIONS: None intra-op CONDITION: Stable DESCRIPTION OF PROCEDURE: The patient was prepped and draped in the appropriate manner, having undergone general endotrachealanesthetic in addition to [place] catheter placement, arterial line, and isaac catheter placement. An antibiotic and a beta constance were administered pre-operatively and documented. Incision and conduit harvest/preparation: A midline sternotomy incision was utilized in standard fashion. The sternum was divided with the oscillating saw. The left internal mammary artery was taken down with clips and bovie cauterization. Papaverine was used. The right lower extremity saphenous vein was harvested via the endoscopic approach. The left radial artery was also harvested via the endoscopic approach. The patient was fully heparinized prior to dividing and prepping the mammary. Cannulation and cardiopulmonary bypass: After cannulation, the patient was placed on cardiopulmonary bypass support. Ascending aortic cross-clamp was applied. Antegrade cardioplegia (microplegia) wasdelivered till the heart was arrested in diastole. Cardioplegia was re-administered every 20 minutes while the ascending aorta was cross clamped. Aortic canula: 21 Fr soft flow angled cannula in distal ascending aorta Venous canula: 29/ Fr triple stage cannula via right atrial appendage Cardioplegia: Antegrade via cannula in the mid ascending aorta. Coronary artery bypass: Bypasses were performed to the [place] targets using the conduits listed above with 7-0 Prolene distally and 6-0 Prolene proximally to the ascending aorta. The left internal mammary artery was anastomosed to the LAD with 7-0 Prolene. Of note, the epicardial exposed area of the ramus had the stent and an anastomosis could not be performed. The rest of the vessel was intra-myocardial. The first obtuse marginal vessel was intra-myocardial and could not be seen on the epicardial surface. CPB wean and decannulation: The patient was given a dose of warm blood cardioplegia. Valsalva breaths were mechanically administered and the aorta was unclamped. The heart returned to normal sinus rhythm. Pacing wire was placed. The DLP left in place as a root vent. The patient was rewarmed and weaned from cardiopulmonary bypass support without difficulty. Protamine was administered and cannulas were removed without difficulty. Three 24 Fr chasity drains were placed, one in the each pleural spaceand one in the mediastinum. Closure: Hemostasis was achieved. The sternum and incision were closed with sternal wires, running 0, 2-0 and 4-0 stitches. Dressings applied, and the patient was transferred to the cardiovascular intensive care unit in stable condition. Cardiopulmonary bypass time: 102 minutes Cross clamp time: 115 minutes Intra-op PAM: No significant abnormalities Gisella Huang MD Cardiothoracic Surgery [employer] Phone: 1(131) 235-256603-07-2024 Note* Op Note - Gisella Huang MD - 06/01/2023 7:29 AM EST DATE OF PROCEDURE: 06/01/2023 PREOPERATIVE DIAGNOSIS: Coronary artery disease Unstable angina POSTOPERATIVE DIAGNOSIS: Coronary artery disease Unstable angina PROCEDURE: 1. Coronary artery bypass grafting x 5 - Left internal mammary artery to the left anterior descending - Free left radial artery graft to the second obtuse marginal - Saphenous vein graft to the right posterior descending artery - Saphenous vein graft to the first diagonal - Saphenous vein graft to the second diagonal 2. Endoscopic left radial artery harvest 3. Endoscopic vein harvest, right lower extremity SURGEON: Gisella Huang MD TWISTING PRESS OPERATOR: SLY Cruz, ROTARY DRILL OPERATOR, HIGH RISK OB, BARGE CAPTAIN COMPLICATIONS: None intra-op CONDITION: Stable DESCRIPTION OF PROCEDURE: The patient was prepped and draped in the appropriate manner, having undergone general endotrachealanesthetic in addition to [place] catheter placement, arterial line, and isaac catheter placement. An antibiotic and a beta constance were administered pre-operatively and documented. Incision and conduit harvest/preparation: A midline sternotomy incision was utilized in standard fashion. The sternum was divided with the oscillating saw. The left internal mammary artery was taken down with clips and bovie cauterization. Papaverine was used. The right lower extremity saphenous vein was harvested via the endoscopic approach. The left radial artery was also harvested via the endoscopic approach. The patient was fully heparinized prior to dividing and prepping the mammary. Cannulation and cardiopulmonary bypass: After cannulation, the patient was placed on cardiopulmonary bypass support. Ascending aortic cross-clamp was applied. Antegrade cardioplegia (microplegia) wasdelivered till the heart was arrested in diastole. Cardioplegia was re-administered every 20 minutes while the ascending aorta was cross clamped. Aortic canula: 21 Fr soft flow angled cannula in distal ascending aorta Venous canula: 29/29 Fr triple stage cannula via right atrial appendage Cardioplegia: Antegrade via cannula in the mid ascending aorta. Coronary artery bypass: Bypasses were performed to the [place] targets using the conduits listed above with 7-0 Prolene distally and 6-0 Prolene proximally to the ascending aorta. The left internal mammary artery was anastomosed to the LAD with 7-0 Prolene. Of note, the epicardial exposed area of the ramus had the stent and an anastomosis could not be performed. The rest of the vessel was intra-myocardial. The first obtuse marginal vessel was intra-myocardial and could not be seen on the epicardial surface. CPB wean and decannulation: The patient was given a dose of warm blood cardioplegia. Valsalva breaths were mechanically administered and the aorta was unclamped. The heart returned to normal sinus rhythm. Pacing wire was placed. The DLP left in place as a root vent. The patient was rewarmed and weaned from cardiopulmonary bypass support without difficulty. Protamine was administered and cannulas were removed without difficulty. Three 24 Fr chasity drains were placed, one in the each pleural spaceand one in the mediastinum. Closure: Hemostasis was achieved. The sternum and incision were closed with sternal wires, running 0, 2-0 and 4-0 stitches. Dressings applied, and the patient was transferred to the cardiovascular intensive care unit in stable condition. Cardiopulmonary bypass time: 102 minutes Cross clamp time: 115 minutes Intra-op PAM: No significant abnormalities Gisella Huang MD Cardiothoracic Surgery [employer] Phone: 1(877) 487-212303-06-2024 Note Attestation signed by Gisella Huang MD at 05/31/2023 4:06 PM DOS: 05/31/2023 I personally performed a face to face diagnostic evaluation on this patient. I agree with the findings and plan of care as documented by the MATTY, there has been no change in the physical exam or findings unless otherwise noted below. Please see office note 62 M with unstable angina Will start nitroglycerin gtt Will start heparin gtt STAT L palmar arch study CT chest wo contrast Plan for urgent CABG in <24 hours A total of 45 minutes were spent between the face to face encounter, physical exam, reviewing the medical history, coordinating the patient's care, counseling/educating the patient, ordering prescriptions/medications/tests/procedures, interpreting results and documenting clinical information in the patient's electronic health record on the day of the encounter. The patient was seen and examined independently and relevant data reviewed by myself. A full chart review was performed. Gisella Huang MD Cardiothoracic Surgery *Full H&P copied from today's OP visit with Surgeon* Interval history: patient direct admitted to CTVICU from OP setting. Noted some slight SOB and chest discomfort in lobby of hospital. Brought to unit. Preoperative orders placed. Preoperative questions answered. Discussed with nursing. All questions answered Review of Systems Constitutional: Negative for activity change, diaphoresis, fatigue, fever and unexpected weight change. Respiratory: Positive for chest tightness and shortness of breath. Negative for cough. Cardiovascular: Negative for chest pain, palpitations and leg swelling. Gastrointestinal: Negative for abdominal distention and abdominal pain. Musculoskeletal: Negative for back pain, gait problem and myalgias. HR: 76 SpO2: 94 on RA BP: 169/89 Physical Exam Constitutional: General: He is not in acute distress. Appearance: Normal appearance. Cardiovascular: Rate and Rhythm: Normal rate and regular rhythm. Pulses: Normal pulses. Heart sounds: Normal heart sounds. No murmur heard. No friction rub. Pulmonary: Effort: Pulmonary effort is normal. Breath sounds: Normal breath sounds. Abdominal: General: Bowel sounds are normal. Palpations: Abdomen is soft. Tenderness: There is no abdominal tenderness. Musculoskeletal: Right lower leg: No edema. Left lower leg: No edema. Skin: General: Skin is warm and dry. Capillary Refill: Capillary refill takes less than 2 seconds. Neurological: Mental Status: He is alert. A/p MVCAD NSVT HLD HTN Former Tobacco Use ETOH use Hx of - 1992? -ASA, BB -Heparin gtt, nipride gtt -preoperative orders -CABG planned for tomorrow with Dr. Huang [facility] SURG[facility] [address] [facility] [id number] Dept: [phone] Dept Loc: [phone] Visit type: New Reason for Visit: Coronary artery disease Assessment and plan 62 M with MVCAD Coronary artery disease: I discussed with him the indications, risks, benefits, and perioperative course of a coronary artery bypass grafting. I discussed alternatives including no intervention, medical therapy only, and percutaneous coronary intervention with medications. A surgical revascularization is recommended in his case. On my review of the coronary angiogram, he does have good targets and will need 4-6 vessel bypass grafts. He is quite functional and is of low risk. He is agreeable. He does have unstable angina with palpitations and probable arrhythmias. This is concerning. I will admit him for management and pre-op studies with urgent CABG in <24 hours given his symptoms and degree of stenosis in all vessels. A modified winnie's test in the office revealed hand perfusion with radial occlusion. A left radial palmar arch study will be ordered along with a CT scan. I discussed arterial use for grafting, radial harvest, BIMA harvest. The risks of the procedure/s include but are not limited to, bleeding, infection, pneumonia, respiratory failure, prolonged Intensive Care Unit stay, multiorgan failure, renal failure needing temporary and/or permanent dialysis, cerebrovascular accident, pulmonary embolism, deep venous thrombosis, cardiac failure or ischemia or arrhythmia, and . Gisella Huang MD Cardiothoracic Surgery History of Present Illness Sylvester Lacy is a 62 y.o. male referred by MIESHA Yuan for severe triple-vessel disease with preserved left ventricular systolic function. Per note, pt with history of CAD with stenting of RCA and PDA in 2 (more content not included)...[facility]03-06-2024 History and physical note* Darion Lopes, JOSE DANIEL - ROTARY DRILL OPERATOR - 05/31/2023 3:04 PM EST Images from the original note were not included. *Full H&P copied from today's OP visit with Surgeon* Interval history: patient direct admitted to CTVICU from OP setting. Noted some slight SOB and chest discomfort in lobby of hospital. Brought to unit. Preoperative orders placed. Preoperative questions answered. Discussed with nursing. All questions answered Review of Systems Constitutional: Negative for activity change, diaphoresis, fatigue, fever and unexpected weight change. Respiratory: Positive for chest tightness and shortness of breath. Negative for cough. Cardiovascular: Negative for chest pain, palpitations and leg swelling. Gastrointestinal: Negative for abdominal distention and abdominal pain. Musculoskeletal: Negative for back pain, gait problem and myalgias. HR: 76 SpO2: 94 on RA BP: 169/89 Physical Exam Constitutional: General: He is not in acute distress. Appearance: Normal appearance. Cardiovascular: Rate and Rhythm: Normal rate and regular rhythm. Pulses: Normal pulses. Heart sounds: Normal heart sounds. No murmur heard. No friction rub. Pulmonary: Effort: Pulmonary effort is normal. Breath sounds: Normal breath sounds. Abdominal: General: Bowel sounds are normal. Palpations: Abdomen is soft. Tenderness: There is no abdominal tenderness. Musculoskeletal: Right lower leg: No edema. Left lower leg: No edema. Skin: General: Skin is warm and dry. Capillary Refill: Capillary refill takes less than 2 seconds. Neurological: Mental Status: He is alert. A/p MVCAD NSVT HLD HTN Former Tobacco Use ETOH use Hx of - 1992? -ASA, BB -Heparin gtt, nipride gtt -preoperative orders -CABG planned for tomorrow with Dr. Huang [facility] CARDIOVASCULAR & THORACIC SURGERY [address] [facility] [address] [place] [id number] Dept: [phone] Dept Loc: [phone] Visit type: New Reason for Visit: Coronary artery disease Assessment and plan 62 M with MVCAD Coronary artery disease: I discussed with him the indications, risks, benefits, and perioperative course of a coronary artery bypass grafting. I discussed alternatives including no intervention, medical therapy only, and percutaneous coronary intervention with medications. A surgical revascularization is recommended in his case. On my review of the coronary angiogram, he does have good targets and will need 4-6 vessel bypass grafts. He is quite functional and is of low risk. He is agreeable. He does have unstable angina with palpitations and probable arrhythmias. This is concerning. I willadmit him for management and pre-op studies with urgent CABG in <24 hours given his symptoms anddegree of stenosis in all vessels. A modified winnie's test in the office revealed hand perfusion with radial occlusion. A left radial palmar arch study will be ordered along with a CT scan. I discussed arterial use for grafting, radial harvest, BIMA harvest. The risks of the procedure/s include but are not limited to, bleeding, infection, pneumonia, respiratory failure, prolonged Intensive Care Unit stay, multiorgan failure, renal failure needing temporary and/or permanent dialysis, cerebrovascular accident, pulmonary embolism, deep venous thrombosis, cardiac failure or ischemia or arrhythmia, and . Gisella Huang MD Cardiothoracic Surgery History of Present Illness Sylvester Lacy is a 62 y.o. male referred by MIESHA Yuan for severe triple-vessel diseasewith preserved left ventricular systolic function. Per note, pt with history of CAD with stenting of RCA and PDA in 2008, HTN. Pt had a stress test [facility] December 2022 which demonstrated no reversible ischemia, fixed inferior defect likely represents attenuation artifact versus small possible scar. Pt saw Cardiology in February 2023 with complaints of chest pain with exertion in the last 4 years. Echocardiogram was ordered and completed on 04/07/23 which demonstrated an EF of 55%, LV normal, stage 1 diastolic dysfunction, pulmonary artery systolic pressure is 30 mmHg. Pt then underwent a heart catheterization on 05/19/23 which showed severe triple- vessel disease with preserved left ventricular systolic function. Cardiac cath showed 90% D1, 90% D2, 80% mLAD, 90% ostial OM1, 80% mCirc, 90% mRCA Pt is a former smoker. He has been having recurrent chest pain, fatigue, and shortness of breath. Pt is here now for an evaluation. Past Medical History Medical History Past Medical History: Diagnosis Date Atherosclerosis of coronary artery Hay fever Hemorrhoids History of alcohol abuse History of inferior wall myocardial infarction History of pulmonary embolism Hyperlipidemia Hypertension Mucous cyst of digit of hand NSVT (nonsustained ventricular tachycardia) (HCC) Past Surgical History Surgical History Past Surgical History: Procedure Laterality Date CORONARY STENT PLACEMENT 2008 Family History Family History Family History Problem Relation Name Age of Onset Diabetes Mother Social History Social History Tobacco Use Smoking status: Former Packs/day: 1.50 Years: 30.00 Additional pack years: 0.00 Total pack years: 45.00 Types: Cigarettes Quit date: 2014 Years since quittin.1 Smokeless tobacco: Never Substance Use Topics Alcohol use: Yes Alcohol/week: 12.0 standard drinks of alcohol Types: 12 Cans of beer per week Drug use: Never Allergies No Known Allergies Medications No current facility-administered medications for this visit. No current outpatient medications on file. Facility-Administered Medications Ordered in Other Visits: [START ON 06/01/2023] chlorhexidine (Hibiclens) 4 % liquid, , Topical, Once, JOSE DANIEL Sultana CNP chlorhexidine (Hibiclens) 4 % liquid, , Topical, Once, JOSE DANIEL Sultana CNP [START ON 06/01/2023] chlorhexidine (Peridex) 0.12 % solution 15 mL, 15 mL, Mouth/Throat, Once, JOSE DANIEL Sultana CNP chlorhexidine (Peridex) 0.12 % solution 15 mL, 15 mL, Mouth/Throat, Once, JOSE DANIEL Sultana CNP [START ON 06/01/2023] mupirocin (Bactroban) 2 % ointment, , Topical, Once, JOSE DANIEL Sultana CNP mupirocin (Bactroban) 2 % ointment, , Topical, Once, JOSE DANIEL Sultana CNP Review of Systems Review of Systems Constitutional: Positive for fatigue. Respiratory: Positive for shortness of breath (on exertion). Cardiovascular: Positive for chest pain (with exertion). All other systems reviewed and are negative. Physical Exam Vitals: BP (!) 147/92 (BP Location: Left arm, Patient Position: Sitting, BP Cuff Size: Adult) Pulse 65 Ht 5' 9 (1.753 m) Wt 245 lb (111 kg) BMI 36.18 kg/m Constitutional: General: Not in acute distress. Appearance: Normal appearance. Not toxic-appearing. Ear, nose, mouth: Bilateral external ear and nose normal. Nose: Nose normal. Mouth: Appearance normal, no bleeding, moist mucus membranes Eyes: General: No scleral icterus. No discharge from bilateral eyes Extraocular Movements: Extraocular movements intact. Pupils equal and reactive bilaterally Cardiovascular: Heart: Regular rhythm. Normal heart sounds. Vascular: No carotid bruit. Edema: No edema in bilateral lower extremities Pulmonary: Effort: Pulmonary effort is normal. No respiratory distress. Breath sounds: Normal breath sounds. No wheezing. Chest wall: No tenderness. Abdominal: Appearance: Not distended Palpations: There is no abdominal tenderness, no guarding. Musculoskeletal: Bilateral upper and lower extremities: Normal range of motion, no deformity Head: Normocephalic and atraumatic. Neck: Normal range of motion and neck supple. No muscular tenderness. Lymphadenopathy: Cervical: No cervical adenopathy. Skin: General: Skin is warm and dry. Coloration: Skin is not jaundiced. Neurological: General: No focal deficit present. Cranial Nerves: No obvious cranial nerve deficit. Psychiatric: Mood and Affect: Mood normal. Thought Content: Thought content normal. Patient has good judgement and insight Mental Status: Alert and oriented to place, person, and time. Labs No results found for: WBC, HGB, PLT, NA, K, CREATININE Imaging Heart Catheterization 05/19/23 TTE 04/07/23 Patient Care Team: PCP: Cardiology: MIESHA Yuan Disclaimer INFORMED CONSENT:The nature and purpose of the proposed treatment or procedure have been discussed.The risks and benefits of the proposed treatment or procedures have been reviewed. Alternatives have been reviewed in addition to the risks and benefits of not receiving treatments or undergoing procedures. Pursuant to this discussion, the patient agrees to undergo the proposed treatment or procedure. Captured images seen in this note from are not a substitute for a comprehensive interpretation of the entire data set as reflected by the interpreting physician with regard to radiology, echocardiography, and other diagnostic images. This note may have been dictated using [employer] Practice Edition 2.6 and/or Ever[employer] Voice Recognition Feature. The document was proofread, however unrecognized voice recognition primary special education teacher errors may be present. Associated attestation - Gisella Huang MD - 05/31/2023 4:06 PM EST DOS: 05/31/2023 I personally performed a face to face diagnostic evaluation on this patient. I agree with the findings and plan of care as documented by the MATTY, there has been no change in the physical exam or findings unless otherwise noted below. Please see office note 62 M with unstable angina Will start nitroglycerin gtt Will start heparin gtt STAT L palmar arch study CT chest wo contrast Plan for urgent CABG in <24 hours A total of 45 minutes were spent between the face to face encounter, physical exam, reviewing the medical history, coordinating the patient's care, counseling/educating the patient, ordering prescript ions/medications/tests/procedures, interpreting results and documenting clinical information in thepatient's electronic health record on the day of the encounter. The patient was seen and examined independently and relevant data reviewed by myself. A full chart review was performed. Gisella Huang MD Cardiothoracic [facility] [id number] History and physical note* Darion Lopes APRN - [facility] - 05/31/2023 3:04 PM EST Images from the original note were not included. *Full H&P copied from today's OP visit with Surgeon* Interval history: patient direct admitted to CT[facility]ICU from OP setting. Noted some slight SOB and chest discomfort in lobby of hospital. Brought to unit. Preoperative orders placed. Preoperative questions answered. Discussed with nursing. All questions answered Review of Systems Constitutional: Negative for activity change, diaphoresis, fatigue, fever and unexpected weight change. Respiratory: Positive for chest tightness and shortness of breath. Negative for cough. Cardiovascular: Negative for chest pain, palpitations and leg swelling. Gastrointestinal: Negative for abdominal distention and abdominal pain. Musculoskeletal: Negative for back pain, gait problem and myalgias. HR: 76 SpO2: 94 on RA BP: 169/89 Physical Exam Constitutional: General: He is not in acute distress. Appearance: Normal appearance. Cardiovascular: Rate and Rhythm: Normal rate and regular rhythm. Pulses: Normal pulses. Heart sounds: Normal heart sounds. No murmur heard. No friction rub. Pulmonary: Effort: Pulmonary effort is normal. Breath sounds: Normal breath sounds. Abdominal: General: Bowel sounds are normal. Palpations: Abdomen is soft. Tenderness: There is no abdominal tenderness. Musculoskeletal: Right lower leg: No edema. Left lower leg: No edema. Skin: General: Skin is warm and dry. Capillary Refill: Capillary refill takes less than 2 seconds. Neurological: Mental Status: He is alert. A/p MVCAD NSVT HLD HTN Former Tobacco Use ETOH use Hx of - 1992? -ASA, BB -Heparin gtt, nipride gtt -preoperative orders -CABG planned for tomorrow with Dr. Huang [facility] SURG[facility] [address] [facility] [address] [facility] [address] Dept: [phone] Dept Loc: [phone] Visit type: New Reason for Visit: Coronary artery disease Assessment and plan 62 M with MVCAD Coronary artery disease: I discussed with him the indications, risks, benefits, and perioperative course of a coronary artery bypass grafting. I discussed alternatives including no intervention, medical therapy only, and percutaneous coronary intervention with medications. A surgical revascularization is recommended in his case. On my review of the coronary angiogram, he does have good targets and will need 4-6 vessel bypass grafts. He is quite functional and is of low risk. He is agreeable. He does have unstable angina with palpitations and probable arrhythmias. This is concerning. I willadmit him for management and pre-op studies with urgent CABG in <24 hours given his symptoms anddegree of stenosis in all vessels. A modified winnie's test in the office revealed hand perfusion with radial occlusion. A left radial palmar arch study will be ordered along with a CT scan. I discussed arterial use for grafting, radial harvest, BIMA harvest. The risks of the procedure/s include but are not limited to, bleeding, infection, pneumonia, respiratory failure, prolonged Intensive Care Unit stay, multiorgan failure, renal failure needing temporary and/or permanent dialysis, cerebrovascular accident, pulmonary embolism, deep venous thrombosis, cardiac failure or ischemia or arrhythmia, and . Gisella Huang MD Cardiothoracic Surgery History of Present Illness Sylvester Hehl is a 62 y.o. male referred by MIESHA Yuan for severe triple-vessel diseasewith preserved left ventricular systolic function. Per note, pt with history of CAD with stenting of RCA and PDA in 2008, HTN. Pt had a stress test [facility] December 2022 which demonstrated no reversible ischemia, fixed inferior defect likely represents attenuation artifact versus small possible scar. Pt saw Cardiology in February 2023 with complaints of chest pain with exertion in the last 4 years. Echocardiogram was ordered and completed on 04/07/23 which demonstrated an EF of 55%, LV normal, stage 1 diastolic dysfunction, pulmonary artery systolic pressure is 30 mmHg. Pt then underwent a heart catheterization on 05/19/23 which showed severe triple- vessel disease with preserved left ventricular systolic function. Cardiac cath showed 90% D1, 90% D2, 80% mLAD, 90% ostial OM1, 80% mCirc, 90% mRCA Pt is a former smoker. He has been having recurrent chest pain, fatigue, and shortness of breath. Pt is here now for an evaluation. Past Medical History Medical History Past Medical History: Diagnosis Date Atherosclerosis of coronary artery Hay fever Hemorrhoids History of alcohol abuse History of inferior wall myocardial infarction History of pulmonary embolism Hyperlipidemia Hypertension Mucous cyst of digit of hand NSVT (nonsustained ventricular tachycardia) ([facility]) Past Surgical History Surgical History Past Surgical History: Procedure Laterality Date CORONARY STENT PLACEMENT 2008 Family History Family History Family History Problem Relation Name Age of Onset Diabetes Mother Social History Social History Tobacco Use Smoking status: Former Packs/day: 1.50 Years: 30.00 Additional pack years: 0.00 Total pack years: 45.00 Types: Cigarettes Quit date: 2014 Years since quittin.1 Smokeless tobacco: Never Substance Use Topics Alcohol use: Yes Alcohol/week: 12.0 standard drinks of alcohol Types: 12 Cans of beer per week Drug use: Never Allergies No Known Allergies Medications No current facility-administered medications for this visit. No current outpatient medications on file. Facility-Administered Medications Ordered in Other Visits: [START ON 06/01/2023] chlorhexidine (Hibiclens) 4 % liquid, , Topical, Once, JOSE DANIEL Sultana CNP chlorhexidine (Hibiclens) 4 % liquid, , Topical, Once, JOSE DANIEL Sultana CNP [START ON 06/01/2023] chlorhexidine (Peridex) 0.12 % solution 15 mL, 15 mL, Mouth/Throat, Once, JOSE DANIEL Sultana CNP chlorhexidine (Peridex) 0.12 % solution 15 mL, 15 mL, Mouth/Throat, Once, JOSE DANIEL Sultana CNP [START ON 06/01/2023] mupirocin (Bactroban) 2 % ointment, , Topical, Once, JOSE DANIEL Sultana CNP mupirocin (Bactroban) 2 % ointment, , Topical, Once, JOSE DANIEL Sultana CNP Review of Systems Review of Systems Constitutional: Positive for fatigue. Respiratory: Positive for shortness of breath (on exertion). Cardiovascular: Positive for chest pain (with exertion). All other systems reviewed and are negative. Physical Exam Vitals: BP (!) 147/92 (BP Location: Left arm, Patient Position: Sitting, BP Cuff Size: Adult) Pulse 65 Ht 5' 9 (1.753 m) Wt 245 lb (111 kg) BMI 36.18 kg/m Constitutional: General: Not in acute distress. Appearance: Normal appearance. Not toxic-appearing. Ear, nose, mouth: Bilateral external ear and nose normal. Nose: Nose normal. Mouth: Appearance normal, no bleeding, moist mucus membranes Eyes: General: No scleral icterus. No discharge from bilateral eyes Extraocular Movements: Extraocular movements intact. Pupils equal and reactive bilaterally Cardiovascular: Heart: Regular rhythm. Normal heart sounds. Vascular: No carotid bruit. Edema: No edema in bilateral lower extremities Pulmonary: Effort: Pulmonary effort is normal. No respiratory distress. Breath sounds: Normal breath sounds. No wheezing. Chest wall: No tenderness. Abdominal: Appearance: Not distended Palpations: There is no abdominal tenderness, no guarding. Musculoskeletal: Bilateral upper and lower extremities: Normal range of motion, no deformity Head: Normocephalic and atraumatic. Neck: Normal range of motion and neck supple. No muscular tenderness. Lymphadenopathy: Cervical: No cervical adenopathy. Skin: General: Skin is warm and dry. Coloration: Skin is not jaundiced. Neurological: General: No focal deficit present. Cranial Nerves: No obvious cranial nerve deficit. Psychiatric: Mood and Affect: Mood normal. Thought Content: Thought content normal. Patient has good judgement and insight Mental Status: Alert and oriented to place, person, and time. Labs No results found for: WBC, HGB, PLT, NA, K, CREATININE Imaging Heart Catheterization 05/19/23 TTE 04/07/23 Patient Care Team: PCP: Cardiology: MIESHA Yuan Disclaimer INFORMED CONSENT:The nature and purpose of the proposed treatment or procedure have been discussed.The risks and benefits of the proposed treatment or procedures have been reviewed. Alternatives have been reviewed in addition to the risks and benefits of not receiving treatments or undergoing procedures. Pursuant to this discussion, the patient agrees to undergo the proposed treatment or procedure. Captured images seen in this note from are not a substitute for a comprehensive interpretation of the entire data set as reflected by the interpreting physician with regard to radiology, echocardiography, and other diagnostic images. This note may have been dictated using Video[employer] Practice Edition 2.6 and/or EverTune Voice Recognition Feature. The document was proofread, however unrecognized voice recognition primary special education teacher errors may be present. Associated attestation - Gisella Huang MD - 05/31/2023 4:06 PM EST DOS: 05/31/2023 I personally performed a face to face diagnostic evaluation on this patient. I agree with the findings and plan of care as documented by the MATTY, there has been no change in the physical exam or findings unless otherwise noted below. Please see office note 62 M with unstable angina Will start nitroglycerin gtt Will start heparin gtt STAT L palmar arch study CT chest wo contrast Plan for urgent CABG in <24 hours A total of 45 minutes were spent between the face to face encounter, physical exam, reviewing the medical history, coordinating the patient's care, counseling/educating the patient, ordering prescript ions/medications/tests/procedures, interpreting results and documenting clinical information in thepatient's electronic health record on the day of the encounter. The patient was seen and examined independently and relevant data reviewed by myself. A full chart review was performed. Gisella Huang MD Cardiothoracic Surgery documented in this [facility]03-06-2024 History of Present illness Narrative* Gisella Huang MD - 05/31/2023 8:30 AM EST Images from the original note were not included. [facility]ARD[facility]AC[facility] SURGERY [address] [facility] [address] Dept: [phone] Dept Loc: [phone] Visit type: New Reason for Visit: Coronary artery disease Assessment and plan 62 M with MVCAD Coronary artery disease: I discussed with him the indications, risks, benefits, and perioperative course of a coronary artery bypass grafting. I discussed alternatives including no intervention, medical therapy only, and percutaneous coronary intervention with medications. A surgical revascularization is recommended in his case. On my review of the coronary angiogram, he does have good targets and will need 4-6 vessel bypass grafts. He is quite functional and is of low risk. He is agreeable. He does have unstable angina with palpitations and probable arrhythmias. This is concerning. I willadmit him for management and pre-op studies with urgent CABG in <24 hours given his symptoms anddegree of stenosis in all vessels. A modified winnie's test in the office revealed hand perfusion with radial occlusion. A left radial palmar arch study will be ordered along with a CT scan. I discussed arterial use for grafting, radial harvest, BIMA harvest. The risks of the procedure/s include but are not limited to, bleeding, infection, pneumonia, respiratory failure, prolonged Intensive Care Unit stay, multiorgan failure, renal failure needing temporary and/or permanent dialysis, cerebrovascular accident, pulmonary embolism, deep venous thrombosis, cardiac failure or ischemia or arrhythmia, and . Gisella Huang MD Cardiothoracic Surgery History of Present Illness Sylvester Lacy is a 62 y.o. male referred by MIESHA Yuan for severe triple-vessel diseasewith preserved left ventricular systolic function. Per note, pt with history of CAD with stenting of RCA and PDA in 2008, HTN. Pt had a stress test [facility] December 2022 which demonstrated no reversible ischemia, fixed inferior defect likely represents attenuation artifact versus small possible scar. Pt saw Cardiology in February 2023 with complaints of chest pain with exertion in the last 4 years. Echocardiogram was ordered and completed on 04/07/23 which demonstrated an EF of 55%, LV normal, stage 1 diastolic dysfunction, pulmonary artery systolic pressure is 30 mmHg. Pt then underwent a heart catheterization on 05/19/23 which showed severe triple- vessel disease with preserved left ventricular systolic function. Cardiac cath showed 90% D1, 90% D2, 80% mLAD, 90% ostial OM1, 80% mCirc, 90% mRCA Pt is a former smoker. He has been having recurrent chest pain, fatigue, and shortness of breath. Pt is here now for an evaluation. Past Medical History Past Medical History: Diagnosis Date Atherosclerosis of coronary artery Hay fever Hemorrhoids History of alcohol abuse History of inferior wall myocardial infarction History of pulmonary embolism Hyperlipidemia Hypertension Mucous cyst of digit of hand NSVT (nonsustained ventricular tachycardia) (HCC) Past Surgical History Past Surgical History: Procedure Laterality Date CORONARY STENT PLACEMENT 2008 Family History Family History Problem Relation Name Age of Onset Diabetes Mother Social History Social History Tobacco Use Smoking status: Former Packs/day: 1.50 Years: 30.00 Additional pack years: 0.00 Total pack years: 45.00 Types: Cigarettes Quit date: 2014 Years since quittin.1 Smokeless tobacco: Never Substance Use Topics Alcohol use: Yes Alcohol/week: 12.0 standard drinks of alcohol Types: 12 Cans of beer per week Drug use: Never Allergies No Known Allergies Medications No current facility-administered medications for this visit. No current outpatient medications on file. Facility-Administered Medications Ordered in Other Visits: [START ON 06/01/2023] chlorhexidine (Hibiclens) 4 % liquid, , Topical, Once, JOSE DANIEL Sultana CNP chlorhexidine (Hibiclens) 4 % liquid, , Topical, Once, JOSE DANIEL Sultana CNP [START ON 06/01/2023] chlorhexidine (Peridex) 0.12 % solution 15 mL, 15 mL, Mouth/Throat, Once, JOSE DANIEL Sultana CNP chlorhexidine (Peridex) 0.12 % solution 15 mL, 15 mL, Mouth/Throat, Once, JOSE DANIEL Sultana CNP [START ON 06/01/2023] mupirocin (Bactroban) 2 % ointment, , Topical, Once, JOSE DANIEL Sultana CNP mupirocin (Bactroban) 2 % ointment, , Topical, Once, JOSE DANIEL Sultana CNP Review of Systems Review of Systems Constitutional: Positive for fatigue. Respiratory: Positive for shortness of breath (on exertion). Cardiovascular: Positive for chest pain (with exertion). All other systems reviewed and are negative. Physical Exam Vitals: BP (!) 147/92 (BP Location: Left arm, Patient Position: Sitting, BP Cuff Size: Adult) Pulse 65 Ht 5' 9 (1.753 m) Wt 245 lb (111 kg) BMI 36.18 kg/m Constitutional: General: Not in acute distress. Appearance: Normal appearance. Not toxic-appearing. Ear, nose, mouth: Bilateral external ear and nose normal. Nose: Nose normal. Mouth: Appearance normal, no bleeding, moist mucus membranes Eyes: General: No scleral icterus. No discharge from bilateral eyes Extraocular Movements: Extraocular movements intact. Pupils equal and reactive bilaterally Cardiovascular: Heart: Regular rhythm. Normal heart sounds. Vascular: No carotid bruit. Edema: No edema in bilateral lower extremities Pulmonary: Effort: Pulmonary effort is normal. No respiratory distress. Breath sounds: Normal breath sounds. No wheezing. Chest wall: No tenderness. Abdominal: Appearance: Not distended Palpations: There is no abdominal tenderness, no guarding. Musculoskeletal: Bilateral upper and lower extremities: Normal range of motion, no deformity Head: Normocephalic and atraumatic. Neck: Normal range of motion and neck supple. No muscular tenderness. Lymphadenopathy: Cervical: No cervical adenopathy. Skin: General: Skin is warm and dry. Coloration: Skin is not jaundiced. Neurological: General: No focal deficit present. Cranial Nerves: No obvious cranial nerve deficit. Psychiatric: Mood and Affect: Mood normal. Thought Content: Thought content normal. Patient has good judgement and insight Mental Status: Alert and oriented to place, person, and time. Labs No results found for: WBC, HGB, PLT, NA, K, CREATININE Imaging Heart Catheterization 05/19/23 TTE 04/07/23 Patient Care Team: PCP: Cardiology: MIESHA Yuan Disclaimer INFORMED CONSENT:The nature and purpose of the proposed treatment or procedure have been discussed.The risks and benefits of the proposed treatment or procedures have been reviewed. Alternatives have been reviewed in addition to the risks and benefits of not receiving treatments or undergoing procedures. Pursuant to this discussion, the patient agrees to undergo the proposed treatment or procedure. Captured images seen in this note from are not a substitute for a comprehensive interpretation of the entire data set as reflected by the interpreting physician with regard to radiology, echocardiography, and other diagnostic images. This note may have been dictated using [employer] Medical Practice Edition 2.6 and/or EverTune Voice Recognition Feature. The document was proofread, however unrecognized voice recognition primary special education teacher errors may be present. documented in this [facility]02-15-2024 History and physical note Author Meek Gaines [facility] May 11, 2023 4:40pm Note Date/Time May 09, 2023 9:25am [facility] Medical Records Department [address] [place] [address] History & Physical Exam 05/09/23923 MR#: [id number] Acct: [id number] Name: SYLVESTER LACY Rep #:[id number] : 1960 62 From: Meek Gaines MD PCP: [place] Hospital Status[place] Location: [facility] History and Physical Date of Admission: 05/19/23 Sylvester Lacy is a 62 year old male who presents for a cardiac catheterization. He has a history of coronary artery disease with RCA and PDA in 2008. He also has a history of hypertension. In 2008 he had angioplasty and stenting done of the RCA system at a hospital in [place]. At that time he was noted to have severe disease in his LAD and moderate disease in his circumflex. Patient had a stress test at the [facility] in December 2022 which demonstrated no reversible ischemia, fixed inferior defect likely represents attenuation artifact versus small possible scar. Wall motion is within normal limits. He was able to walk for 6 minutes on a Kevin protocol achieving 7 METS. Pt states that he has been having chest pain in the last 4 years. He has noted that he would have chest pain with exertion. This is increasing in frequency. 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 He would slow down and then it would go away. He does feel that his exercise tolerance has decreased over the last year. He did have a stress test. Results are noted below. He was to see a school cook and Griselda, his Imdur was increased. CP helped somewhat. He was then started on Ranexa. This has helped with his CP. He has tried to reproduce the pain with Ranexa and has not been able to reproduce pain. 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 He does not have any worsening SOB. He does palpitations, this is not new. He does feel that he notices this more over the last 2-3 years. He notes that this is 1-2 times a week but can last up to 5 minutes. He does not have any lightheadedness/dizziness. He does not have any claudication. He does not have any edema. He has not needed to use any NTG. Intake Vital Signs See EMR Allergies See EMR Medications See EMR Ejection fraction %: 60 to 64 PFSH Medical History Atherosclerosis of coronary artery of [place] heart without angina pectoris COVID-19 ELIZABETH (dyspnea on exertion) Hay fever Hemorrhoids History of alcohol abuse History of inferior wall myocardial infarction History of pulmonary embolus (PE) Hyperlipidemia Hypertension Mucous cyst of digit of hand NSVT (nonsustained ventricular tachycardia) Surgical History History of coronary artery stent placement (~01/2009) Family History Mother CVA (cerebral vascular accident) Diabetes Social History Smoking Status: Former smoker how long ago did patient quit [id number] and again in 2014 alcohol intake: current Alcohol type: beer details: weekly substance use type: does not use ROS Const Const: Positive for fatigue (see HPI); Negative for weakness, fever(s) or headache(s) Eyes Eyes: Negative for blind spots, loss of peripheral vision or transient loss of vision ENT ENT: Negative for headache(s), dizziness, tinnitus, Nosebleed/epistaxis or balance problems Cardio Chest Pain: Yes (see HPI) Palpitations: No Edema: None Muscle aches with walking: None Resp Respiratory: Negative for SOB with activity, SOB at rest, SOB orthopnea\SOB lying down or Cough GI GI: Negative nausea, vomiting, heartburn or vomiting blood/hematemesis : Negative for hematuria Musc Musc: Negative for muscle aches/ myalgia, muscle weakness, joint pain or balanceproblems Neuro Neuro: Negative for dizziness, lightheadedness, near syncope, syncope, orthostatic symptoms, headache(s) or weakness Sarath Hematologic/Lymphatic: Negative for easy bleeding Endo Endo: Positive for fatigue (see HPI) Cardiology Exam Const Appearance: cooperative, no acute distress and well developed Orientation: alert, awake and oriented x3 Head Head: normocephalic and atraumatic Mouth: moist mucous membranes Eyes General: appearance normal, both eyes and all related structures Conjunctivae: conjunctivae normal Pupils: PERRL EOM: EOM intact bilaterally Neck Neck: normal visual inspection, no lymphadenopathy and no JVD Carotids: Negative bruit Neck Mass: Negative Neck mass Chest Chest inspection: normal inspection of the chest and symmetric chest movement Auscultation: Bilateral: Clear to Auscultation Cardio Palpation: normal PMI Rate: regular rate Rhythm: regular rhythm Heart sounds: S1 normal and S2 normal; Negative rub, gallop or murmur GI GI: normal to inspection, soft, no hepatosplenomegaly and bowel sounds present; Negative tender Neuro General: patient alert, patient awake, patient oriented x3, CN's II-XI intact bilaterally and moves all extremities Extremities Pulses: Normal: Right Posterior Tibial Pulse, Left Posterior Tibial Pulse, RightRadial Pulse and Left Radial Pulse Lower Extremity Edema: None: Bilateral Psych Psychological: normal affect Supplemental Info Supplemental Information Echocardiogram in 2008 demonstrated mild concentric LVH, mild segmental systolicdysfunction with an estimated ejection fraction of 45%. Mild mitral insufficiency. Patient had a stress test at the [facility] in December 2022 which demonstrated no reversible ischemia, fixed inferior defect likely Riis represents attenuation artifact versus small possible scar. Wall motion is within normal limits. He was able to walk for 6 minutes on a Kevin protocol achieving 7 METS. Echocardiogram in 2017 this is similar to does have occasional palpitations declines Holter monitor stress test results are similar to 2009 because he stillhaving there is demonstrated an ejection fraction of 60 to 65%. Patient had event monitor in 2019 which demonstrated predominantly sinus rhythm with nonsustained 5 beat ventricular run. Recent lipid profile demonstrates total cholesterol 124, HDL 58, LDL 68. Assessment and Plan Assessment and Plan (1) Atherosclerosis of coronary artery of [place] heart without angina pectoris: Status: Chronic Plan: Pt does have known CAD. He does acknowledge exertional chest pain, that is becoming more frequent, and lasting longer. Would like to proceed with a cardiaccatheterization to further assess this. Depending on results, further recommendations will be made. (2) Chest pain: Will proceed with a cardiac catheterization to further assess. Depending on results, further recommendations will be made. 05/11/23 1640 <Electronically signed by Meek Gaines MD> Cosigner Signature (if applicable): 05/09/23 1005 <Electronically signed by Crissy FLOR> CC: CHACHO Dempsey; Dr. Meek Gaines MD; [facility]~ Signed [facility] Work Phone: [phone]) 859-457203-23-[address] Oneil [facility] June 16, 2022 5:13pm Note Date/Time June 16, 2022 2:2 9pm [facility] Medical Records Department [address] [place] [address] Emergency Department Summary 06/16/22 MR#: [id number] Acct: [id number] Name: SYLVESTER LACY Rep #:[id number] : 1960 61 From: Isaías Oneil DO PCP: [place], [place] Status:REG ER Location: ED HPI History of Present Illness Chief Complaint: Palpitations Narrative Narrative: 61-year-old male presenting with palpitations. He states he had about a 2-minute run of feeling like he was having palpitations. He did not catch his heart rate. He states he went to get his blood pressure checked and it was in the 170s over 101 range. He does not have any chest pain but stated he did feellittle short of breath that he was a little bit sweaty. No nausea/vomiting. Hestates has been otherwise well prior to today. He did take a nitroglycerin today but he states this was in 2019. History of CAD, cardiac stents. [facility] Medical History Hay fever Heart attack Hemorrhoids Hyperlipidemia Hypertension Home Medications carvedilol 12.5 mg tablet 0.5 tab PO BID #90 tabs 09/18/18 [History Last Taken Unknown] lisinopril 5 mg tablet 2.5 mg PO DAILY #90 tabs 09/18/18 [History Last Taken Unknown] isosorbide mononitrate 30 mg tablet,extended release 24 hr 30 mg PO DAILY 11/01/19 [History Last Taken Unknown] meclizine 25 mg tablet 25 mg PO 4X/DAY PRN PRN Dizziness #20 tabs 11/01/19 [Rx Last Taken Unknown] promethazine 25 mg tablet 25 mg PO Q6H PRN PRN Nausea #10 tabs 11/01/19 [Rx Last Taken Unknown] simvastatin 40 mg tablet 40 mg PO QHS 11/01/19 [History Last Taken Unknown] aspirin 81 mg chewable tablet 81 mg PO DAILY 06/25/21 [History Last Taken Unknown] meclizine 25 mg tablet 25 mg PO Q8H PRN PRN Dizziness #20 tabs 06/25/21 [Rx Last Taken Unknown] Allergy/AdvReac Type Severity Reaction Status Date / Time No Known Allergies Allergy Verified 06/16/22 13:41 Surgical History Hx of heart artery stent Social History Smoking Status: Former smoker alcohol intake: current Alcohol type: beer details: weekly ROS ROS ED Constitutional Constitutional ED: Denies chills or fever(s) Eyes Eyes: Denies blurry vision or change in vision ENT ENT ED: Denies rhinorrhea Cardiovascular Cardiovascular: Reports palpitations; Denies chest pain Respiratory/Chest Respiratory/Chest: Reports dyspnea; Denies cough Gastrointestinal Gastrointestinal: Denies abdominal pain or constipation Genitourinary Genitourinary ED: Denies dysuria or hematuria Musculoskeletal Musculoskeletal: Denies arthralgias or back pain Integumentary Denies abscess Neurologic Neurologic: Denies headache(s) or paresthesias Psychiatric Psychiatric: Denies anxiety or depression EXAM Physical Exam Const Vital Signs: 06/16/22 13:39 06/16/22 14:17 06/16/22 14:17 Temperature 97.2 F L Temperature Source Temporal Pulse Rate 91 Respiratory Rate 16 Respiratory Effort Normal Non-Labored Blood Pressure 151/109 H Blood Pressure Mean 123 Pulse Ox 95 98 Oxygen Delivery Method Room Air Room Air Positive well nourished General Appearance ED: NAD HEENT Reports TM's clear and moist mucous membranes Tympanic Membrane ED: Yes TM's clear Eyes PERRL and EOMs intact bilaterally Neck no lymphadenopathy Chest Wall inspection of chest normal Resp normal respiratory effort and clear to auscultation bilaterally Auscultation: Negative for rales, rhonchi or wheezes Cardio regular rate and regular rhythm Extremity General Extremety ED: Yes edema General Extremity: edema Neuro oriented x3 and CN's II-XII intact bilaterally Sensorium / Orientation: awake and alert Psych mental status grossly normal Skin no rashes or lesions noted MDM MDM MDM Narrative Medical decision making narrative: 59-year-old male presenting with palpitations. He states it was about 2 months this lasted. He went and got his blood pressure checked which was high althoughthey did not let him rest before they checked it. He does not have any chest pain. He did report some shortness of breath and feeling a little sweaty. Differential at this point is ACS, electrolyte abnormality, dehydration, hypertension. He does not have any cough, fevers to suspect pneumonia. No DVT/PE risk factors and no chest pain. We will obtain a CBC for white blood cell count, hemoglobin, platelets, differential. BMP for renal function electrolytes, glucose, anion gap. High-sensitivity troponin, EKG will be obtained. Chest x-ray as well. EKG on my interpretation shows a normal sinus rhythm with a ventricular rate of 89 bpm without sign of ischemic change or dysrhythmia. CBC shows normal white blood cell count of 4.8. Hemoglobin chronic are stable. Platelets are normal. Renal function electrolytes unremarkable. High-sensitivity troponin is 5. EKG sinus rhythm at a rate 89 bpm without sign of ischemic change or dysrhythmia. This is on my interpretation. Chest x-ray shows no acute process on my interpretation. Radiology interpretation agrees. At this point feel the patient is stable for discharge home. Recommend follow-up with his PCP to ensure resolution. Return precautions were discussed. Impression: 1. Palpitations Lab Data Labs: Laboratory Results - last 24 hr 06/16/22 06/16/22 14:15 14:15 WBC 4.8 RBC 4.60 Hgb 13.3 Hct 41.8 MCV 90.9 MCH 28.9 MCHC 31.8 L RDW Std Deviation 43.8 RDW Coeff of Tena 13.2 Plt Count 221 MPV 9.3 Immature Gran % (Auto) 0.400 Neut % (Auto) 44.6 L Lymph % (Auto) 38.4 Mingo % (Auto) 12.7 H Eos % (Auto) 2.9 Baso % (Auto) 1.0 Absolute Neuts (auto) 2.2 Absolute Lymphs (auto) 1.85 Nucleated RBC % 0 Sodium 141 Potassium 4.8 Chloride 109 H Carbon Dioxide 30.0 Anion Gap 2 L BUN 19 H Creatinine 1.13 Estim Creat Clear Calc 67.78 Est GFR (MDRD) Af Amer 84 Est GFR (MDRD) Non-Af 70 BUN/Creatinine Ratio 16.8 Glucose 98 Calcium 9.1 Troponin I High Sens 5 Radiography Diagnostic Testing: Clinical Impression(s) from Imaging Studies Chest X-Ray 06/16/22 13:54 IMPRESSION: Normal x-ray examination of the chest. Electronically Signed: Klever Cotton MD at 14:51 EDT , Discharge Plan Triage Chief Complaint: Palpitations ED Provider: Isaías Oneil Dx/Rx/DC Orders Prescriptions: No Action lisinopril 5 mg tablet 2.5 mg PO DAILY Qty: 90 carvedilol 12.5 mg tablet 0.5 tab PO BID Qty: 90 Label Comments: TAKE 1 2 (ONE HALF) TABLET BY MOUTH TWICE DAILY isosorbide mononitrate 30 mg tablet extended release 24 hr 30 mg PO DAILY Label Comments: TAKE 1 TABLET BY MOUTH ONCE DAILY simvastatin 40 MG tablet 40 mg PO QHS meclizine 25 MG tablet 25 mg PO 4X/DAY PRN PRN (Reason: Dizziness) Qty: 20 0RF promethazine 25 MG tablet 25 mg PO Q6H PRN PRN (Reason: Nausea) Qty: 10 0RF aspirin [Baby Aspirin] 81 mg Tablet,Chewable 81 mg PO DAILY meclizine [meclizine] 25 MG tablet 25 mg PO Q8H PRN PRN (Reason: Dizziness) Qty: 20 0RF [facility] [Primary [facility] Provider] - What to do if you have Problems For any increased pain, shortness of breath, bleeding, nausea or vomiting, chestpain, or any unexpected problems, contact your Primary Care Provider. Call [facility] ([phone]) or report to the closest Emergency Room. Call 911 if necessary. 06/16/22 6840 <Electronically signed by Isaías Thad DO> Cosigner Signature (if applicable): CC: [facility] ~ Signed [facility] Work Phone: Evaluation noteNo assessment information available [facility] Work Phone: Evaluation note* Diagnosis Onset Date Resolution Status Chest pain acute ELIZABETH (dyspnea on exertion) ac [place] NSVT (nonsustained ventricular tachycardia) acute Atherosclerosis of coronary artery of [place] heart without angina pectoris chronic Hyperlipidemia chronic Hypertension [facility] Work Phone: Evaluation note* Diagnosis CAD, multiple vessel- Primary Unstable angina (CMS/HCC) (HCC) Intermediate coronary syndrome Atherosclerotic heart disease of [place] coronary artery without angina pectoris documented in this encounter [facility]* Diagnosis Retention of urine- Primary Unspecified retention of urine documented [facility] this encounter [facility]* Diagnosis Coronary artery disease involving [place] heart with angina pectoris, unspecified vessel or lesion type (HCC)- Primary Preoperative clearance Unspecified pre-operative examination Coronary artery disease involving [place] heart with angina pectoris, unspecified vessel or lesion type (HCC) S/P CABG (coronary artery bypass graft) Postsurgical aortocoronary bypass status documented in this encounter [facility]* Diagnosis S/P CABG (coronary artery bypass graft)- Primary Postsurgical aortocoronary bypass status CAD, multiple vessel documented in this encounter [facility]* Diagnosis S/P CABG (coronary artery bypass graft)- Primary Postsurgical aortocoronary bypass status documented in this encounter [facility]* Diagnosis Onset Date Resolution Status Chest pain acute ELIZABETH (dyspnea on exertion) ac [place] NSVT (nonsustained ventricular tachycardia) acute Atherosclerosis of coronary artery of [place] heart without angina pectoris chronic Hyperlipidemia chronic Hypertension chronic S/P CABG x 5 acute Hyperlipidemia chronic Hypertension chronic [facility] Work Phone: Evaluation note* Diagnosis S/P CABG (coronary artery bypass graft)- Primary Postsurgical aortocoronary bypass status documented in this encounter [facility]* Diagnosis Onset Date Resolution Status S/P CABG x 5 acute Hyperlipidemia chronic Hypertension chronic [facility] Work Phone: Evaluation note* Diagnosis Onset Date Resolution Status S/P CABG x 5 acute Hyperlipidemia chronic Hypertension chronic S/P CABG x 5 acute Hyperlipidemia chronic Hypertension chronic [facility] Work Phone: Reason for referral (narrative)* Consultation (Routine) - Pending Review Specialty Diagnoses / Procedures Referred By Mat t Referred To Contact Urology Diagnoses Retention of urine Procedures ME OFFICE/OUTPATIENT NEW HIGH MDM 60 MINUTES Jean Sanchez, JOSE DANIEL - CHILO [address] [place] [address] [facility] [address] [place] [address] Referral ID Status Reason Start Date Expiration Date Visits Requested Visits Authorized [id number] Pending Review Specialty Services Required 06/06/2023 06/05/2024 1 1 [facility]No reason for referral [facility] Work Phone: Summary Purpose Family History No Family History Records Found Relationship Condition Age at Onset Recorded Date/T alexander mother Cerebrovascular accident (CVA) Unknown Diabetes mellitus Unknown Advance Directives No Advanced Directives Records Found Advance Directive Response Recorded Date/ Time Living Will No June 25, 2021 7:38am Power of Dental Floss Packer No June 25 7:38am Advance Directive Response Recorded Date/ Time Living Will No April 16 10:34am Power of Dental Floss Packer No April 16, 2022 10:34am Advance Directive Response Recorded Date/ Time Living Will No June 16, 2022 2:17pm Power of Dental Floss Packer No June 16 2:17pm Advance Directive Response Recorded Date/ Time Living Will No June 16, 2022 1:17pm Power of Dental Floss Packer No June 16 1:17pm Advance Directive Response Recorded Date/ Time Advance Directives No April 7:12am Living Will No May 19, 2 024 7:12am Power of Dental Floss Packer No May 19, 2023 7:12am Latest Code Status on File Code Status Date Activated Date Inactivated Comments Full Code 05/31/2023 2:58 PM Latest Code Status on File Code Status Date Activated Date Inactivated Comments Full Code 05/31/2023 2:58 PM 06/06/2023 2:04 PM Latest Code Status on File Code Status Date Activated Date Inactivated Comments Full Code 05/31/2023 2:58 PM 06/06/2023 2:04 PM Advance Directive Response Recorded Date/ Time Advance Directives on File No July 03, 2023 8:09am Advance Directives No April 8:12am Living Will Yes July 03, 2023 8:21am Power of Dental Floss Packer No July 02 8:09am Advance Directive Response Recorded Date/ Time Advance Directives No April 8:12am Chief Complaint and Reason for Visit Chief Complaint DIZZINESS Chief Complaint GENERAL ILLNESS Chief Complaint GENERAL ILLNESS PALPITATIONS Chief Complaint POSS STRESS / CAD / [place]) Atherosclerotic heart disease of [place] coronary a Reason for Visit Chest pain ELIZABETH (dyspnea on exertion) NSVT (nonsustained ventricular tachycardia) Atherosclerosis of coronary artery of [place] heart without angina pectoris Hyperlipidemia Hypertension Chief Complaint POSS STRESS / CAD / CP ([place]) Atherosclerotic heart disease of [place] coronary a CP CP Reason for Visit Chest pain ELIZABETH (dyspnea on exertion) NSVT (nonsustained ventricular tachycardia) Atherosclerosis of coronary artery of [place] heart without angina pectoris Hyperlipidemia Hypertension Chief Complaint POSS STRESS / CAD / CP ([place]) Atherosclerotic heart disease of [place] coronary a CP 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 S/P CABG Reason for Visit Chest pain ELIZABETH (dyspnea on exertion) NSVT (nonsustained ventricular tachycardia) Atherosclerosis of coronary artery of [place] heart without angina pectoris Hyperlipidemia Hypertension S/P CABG x 5 Hyperlipidemia Hypertension Chief Complaint Atherosclerotic hear t disease of [place] coronary a CP 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 S/P CABG WOUND CHECK (SEE NOTES) Reason for Visit S/P CABG x 5 Hyperlipidemia Hypertension Chief Complaint Atherosclerotic hear t disease of [place] coronary a CP 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 WOUND 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 (SEE NOTES) S/P SUMMA 06/04 (SCANNED) S/P CABG Reason for Visit S/P CABG x 5 Hyperlipidemia Hypertension S/P CABG x 5 Hyperlipidemia Hypertension Chief Complaint Atherosclerotic hear t disease of [place] coronary a CP 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 (SEE NOTES) S/P SUMMA 06/04 (SCANNED) S/P CABG S/P CABG Reason for Visit S/P CABG x 5 Hyperlipidemia Hypertension S/P CABG x 5 Hyperlipidemia Hypertension Chief Complaint Admit Date 6 M FU August 23, 2024 8:09a m Reason for Visit Admit Date Hyperlipidemia August 23, 2024 8:09a m Hypertension August 23, 2024 8:09a m S/P CABG x 5 August 23, 2024 8:09a m Additional Source Comments (unrecognized sect ion and content) No Status Records FoundNo Status Records FoundNo Status Records FoundNo Status Records Found INFORMATION SOURCE (unrecogn ized section and content) DATE CREATED AUTHOR 07/18/2018 [employer] [facility] DATE CREATED AUTHOR AUTHOR'S ORGANIZ ATION 06/07/2023 [facility] ([place]) DATE CREATED AUTHOR AUTHOR'S ORGANIZ ATION 06/08/2023 [facility] DATE CREATED AUTHOR AUTHOR'S ORGANIZ ATION 07/21/2023 [facility] DATE CREATED AUTHOR AUTHOR'S ORGANIZ ATION [facility]2024 [facility] Goals (unrecognized section and content) Goals may be documented in a n alternate sectionGoals may be documented in an alternate sectionGoals may be documented in an alternate sectionGoals may be documented in an alternate sectionGoals may be documented in an alternate sectionGoals may be documented in an alternate sectionGoals may be documented in an alternate sectionGoals may be documented in an alternate sectionGoals may be documented in an alternate sectionGoals may be documented in an alternate section Care Teams (unrecognized sec tion and content) Team Status: Active Member Role Status Dates [facility] Family Provider Active [facility] Primary Care Provider Active Team Status: Inactive Member Role Status Dates [facility] Primary Care Provider Active Dr. Jesse Palacio DO Emergency Provider Active Team Status: Inactive Member Role Status Dates [facility] Primary Care Provider Active Dr. Jesse Palacio DO Attending Provider, Emergency P north Active Team Status: Inactive Member Role Status Dates [facility] Primary Care Provider Active Dr. Isaías Oneil DO Emergency Provider Active Team Status: Inactive Member Role Status Dates [facility] Primary Care Provider, Referring Provider Active Michelle Davies PA, PA Attending Provider Active Team Status: Active Member Role Status Dates [facility] Primary Care Provider Active Dr. Meek Gaines MD Attending Provider Active Team Status: Inactive Member Role Status Dates [facility] Primary Care Provider Active Michelle Davies PA, PA Attending Provider, Referr ing Provider Active Team Status: Active Member Role Status Dates [facility] Primary Care Provider Active Dr. Meek Gaines MD Attending Provider, Referring Pro vider Active Team Status: Active Member Role Status Dates [facility] Primary Care Provider Active Dr. Meek Gaines MD Attending Provider, Other Provide r Active Team Status: Inactive Member Role Status Dates [facility] Primary Care Provider Active Dr. Meek Gaines MD Attending Provider, Referring Pro vider Active Transportation Mechanic Relationship Specialty Start Date End Date Crissy Engle, DO [address] [place] [address] PCP - General 05/31/23 Transportation Mechanic Relationship Specialty Start Date End Date Crissy Engle DO [address] [place] [address] PCP - General 05/31/23 Transportation Mechanic Relationship Specialty Start Date End Date Crissy Engle DO [address] [place] [address] PCP - General 05/31/23 Transportation Mechanic Relationship Specialty Start Date End Date Crissy Engle DO [address] [place] [address] PCP - General 05/31/23 Transportation Mechanic Relationship Specialty Start Date End Date Crissy Engle DO [address] [place] [address] PCP - General 05/31/23 Transportation Mechanic Relationship Specialty Start Date End Date Crissy Engle DO [address] [place] [address] PCP - General 05/31/23 Transportation Mechanic Relationship Specialty Start Date End Date Crissy Engle DO [address] [place] [address] PCP - General 05/31/23 Team Status: Inactive Member Role Status Dates [facility] Primary Care Provider, Referring Provider Active Dr. Meek Gaines MD Attending Provider Active Transportation Mechanic Relationship Specialty Start Date End Date Crissy Engle DO [address] [place] [address] PCP - General 05/31/23 Team Status: Inactive Member Role Status Dates [facility] Primary Care Provider Active MIESHA Sánchez Attending Provider Active Team Status: Active Member Role Status Dates [facility] Primary Care Provider Active MIESHA Sánchez Attending Provider, Referr ing Provider Active Team Status: Inactive Member Role Status Dates [facility] Primary Care Provider Active Start: August 23, 2024 End: August 23, 2024 [facility] Referring Provider Active Start: 2024 End: August 23, 2024 Michelle WHITESIDE PA Attending Provider Active Start: August 23, 2024 End: August 23, 2024 Reason for Visit (unrecogniz ed section and content) Reason Comments New Patient Specialty Diagnoses / Procedures Referred By Contac t Referred To Contact Diagnoses Coronary artery disease involving [place] heart with angina pectoris, unspecified vessel or lesion type (HCC) CHEST PAIN CAD Procedures . Gisella Huang MD [address] [place] [address] [address] [place] [address] Referral ID Status Reason Start Date Expiration Date Visits Re quested Visits Authorized [id number] 1 Reason Onset Date Comments post op pain 06/09/2023 Reason Comments Post-op Reason Onset Date Comments leg pain 06/27/2023 Reason Onset Date Comments Post-op Follow-up 06/28/2023 Post-op Problem 06/28/2023 Reason Onset Date Comments Post-op Problem 07/11/2023 Scheduled Active and Recently Administ ered Medications (unrecognized section and content) Medication Order 06/04/2023 06/05/2023 06/06/2023 acetaminophen (Tylenol) tablet 1,000 mg 1,000 mg, Oral, Every 8 hours, First dose on Clara 06/01/23 at 1400, Recovery & On Unit 0604 (Given - Provider: Jessica Estrada, RN)1414 (Given - Provider: Jacque Lal RN)2112 (Given - Provider: Jessica Estrada, RN) 0532 (Given - Provider: Jessica Estrada, RN)1311 (Given - Provider: Patria Brice, BEBA)2320 (Given - Provider: Evelia Leon RN) 0621 (Given - Provider: Shahrzad Nazario RN) amLODIPine (Norvasc) tablet 2.5 mg 2.5 mg, Oral, Daily, First dose on Mon06/02/23 at 0900 0816 (Given - Provider: Jacque Lal RN) 0833 (Given - Provider: Patria Brice RN) 0800 (Given - Provider: Patria Brice, BEBA) aspirin EC tablet 81 mg 81 mg, Oral, Daily, First dose on Mon06/02/23 at 0900, Do not crush, chew, or split. 0816 (Given - Provider: Jacque Lal RN) 0832 (Given - Provider: Patria Brice, BEBA) 0800 (Given - Provider: Patria Brice, BEBA) carvedilol (Coreg) tablet 12.5 mg 12.5 mg, Oral, 2 times daily with meals, First dose (after last modification) on Mon06/04/23 at 1700, Hold for SBP less than 105 and/or MAPs less than 65 and/or HR less than 60 1800 (Given - Provider: Jacque Lal RN) 0832 (Given - Provider: Patria Brice RN)1728 (Given - Provider: Patria Brice, BEBA) 0756 (Given - Provider: Patria Brice, BEBA) carvedilol (Coreg) tablet 3.125 mg (CANCELED) 3.125 mg, Oral, 2 times daily with meals, First dose on 06/03/23 at 1015, Hold for SBP less than 105 and/or MAPs less than 65 and/or HR less than 60 0816 (Given - Provider: Jacque Lal RN) chlorhexidine (Peridex) 0.12 % solution 15 mL (CANCELED) 15 mL, Mouth/Throat, 2 times daily, First dose on Clara 06/01/23 at 1330, For 7 days, Phase II/On Unit, Rinse and spit. Do not swallow. 0816 (Given - Provider: Jacque Lal RN)2110 (Given - Provider: Jessica Estrada, BEBA) furosemide (Lasix) injection 40 mg (COMPLETED) 40 mg, IntraVENous, Once, On 06/04/23 at 1030, For 1 dose 1107 (Given - Provider: Jacque Lal RN) heparin injection 5,000 Units 5,000 Units, SubCUTAneous, 2 times daily, First dose on 06/03/23 at 1015 0816 (Given - Provider: Jacque Lal RN)2110 (Given - Provider: Jessica Estrada, BEBA) 08 (Given - Provider: Patria Brice, BEBA)2051 (Given - Provider: Evelia Leon, BEBA) 0800 (Given - Provider: Patria Brice, BEBA) Lidocaine 4 % patch 1 patch 1 patch, Topical, Administer over 12 Hours, Daily, First dose on Clara 06/01/23 at 1330, Recovery & On Unit, Cut in half and place on both sides of the incision. Patch may remain in place for up to 12 hours in any 24 hour period. 0817 (Medication Applied - Provider: Jacque Lal RN)2016 (Medication Removed - Provider: Jessica Estrada, BEBA) 0832 (Medication Applied - Provider: Patria Brice, BEBA)2031 (Medication Removed - Provider: Evelia Leon, BEBA) 0800 (Not Given - Provider: Patria Brice, BEBA - Reason: Patient/family refused) magnesium hydroxide (Milk of Magnesia) 400 MG/5ML suspension 30 mL (COMPLETED) 30 mL, Oral, Once, On 06/05/23 at 0600, For 1 dose, Follow dose with 8 oz of water. 0618 (Given - Provider: Jessica Estrada, BEBA) methocarbamol (Robaxin) tablet 500 mg 500 mg, Oral, Every 6 hours scheduled (4 times per day), First dose on 06/03/23 at 1200 0015 (Given - Provider: Jessica Estrada RN)0605 (Given - Provider: Jessica Estrada, BEBA)1107 (Given - Provider: Jacque Lal RN)1800 (Given - Provider: Jacque Lal RN) 0001 (Given - Provider: Jessica Estrada RN)0532 (Given - Provider: Jessica Estrada RN)1126 (Given - Provider: Patria Brice, BEBA)1728 (Given - Provider: Patria Brice, BEBA) 0050 (Given - Provider: Evelia Leon RN)0621 (Given - Provider: Shahrzad Nazario, BEBA)1200 (Canceled Entry - Provider: Automatic Discharge Provider - Comment: Automatically canceled at discontinue of medication order) mupirocin (Bactroban) 2 % ointment (COMPLETED) Nasal, 2 times daily, First dose on Clara 06/01/23 at 1330, For 4 days, Phase II/On Unit 0817 (Given - Provider: Jacque Lal RN)2112 (Given - Provider: Jessica Estrada RN) pantoprazole (ProtoNix) EC tablet 40 mg 40 mg, Oral, Daily before breakfast, First dose on 06/04/23 at 0700, Do not crush, chew, or split. 0605 (Given - Provider: Jessica Estrada RN) 0532 (Given - Provider: Jessica Estrada RN) 0621 (Given - Provider: Shahrzad Nazario, BEBA) polyethylene glycol (PEG) 3350 (Miralax) packet 17 g 17 g, Oral, Daily, First dose on Clara 06/01/23 at 1330, Recovery & On Unit, Bowel Regimen - for prevention of constipation. 0816 (Given - Provider: Jacque Lal RN) 0832 (Given - Provider: Patria Brice RN) 0800 (Given - Provider: Patria Birce RN) rosuvastatin (Crestor) tablet 40 mg 40 mg, Oral, Daily, First dose (after last reorder) on Mon06/02/23 at 2100 2111 (Given - Provider: Jessica Estrada RN) 2051 (Given - Provider: Evelia Leon, BEBA) senna-docusate sodium (Senokot-S) 8.6-50 MG tablet 2 tablet 2 tablet, Oral, Nightly, First dose on Clara 06/01/23 at 2100, Recovery & On Unit, Bowel Regimen - for prevention of constipation. 2111 (Given - Provider: Jessica Estrada RN) 2099 (Not Given - Provider: Evelia Leon RN - Reason: Patient/family refused) sodium chloride 0.9% (NS) flush 10 mL 10 mL, IntraVENous, Every 12 hours scheduled (2 times per day), First dose on Clara 06/01/23 at 2100, Recovery & On Unit 0817 (Given - Provider: Jacque Lal RN)2115 (Given - Provider: Jessica Estrada RN) 09 (Given - Provider: Patria Brice RN)2042 (Given - Provider: Evelia Leon, BEBA) 08 (Given - Provider: Patria Brice RN) tamsulosin (Flomax) 24 hr capsule 0.4 mg 0.4 mg, Oral, Daily, First dose on Mon06/04/23 at 0900, Do not crush, chew, or split. 0816 (Given - Provider: Jacque Lal RN) 0832 (Given - Provider: Patria Brice, BEBA) 0800 (Given - Provider: Patria Brice RN) PRN Medication Order 06/04/2023 06/05/2023 06/06/2023 calcium gluconate 2000 mg in 100 mL IVPB premix 2,000 mg, IntraVENous, at 50 mL/hr, Administer over 2 Hours, PRN, ionized calcium less than 4.3, Starting on Clara 06/01/23 at 1328, Recovery & On Unit, Give 2000 mg for ionized calcium less than 4.3 premix bag dextrose 5 % infusion 100 mL/hr, IntraVENous, PRN, Blood sugar less than 70mg/dL, Starting on Clara 06/01/23 at 1328, Recovery & On Unit, Start infusion following administration of dextrose 50% or glucagon. dextrose 50 % solution 12.5 g 12.5 g, IntraVENous, PRN, low blood sugar, Blood glucose less than 70 mg/dL and patient NOT ALERT or NPO., Starting on Clara 06/01/23 at 1328, Recovery & On Unit, If patient does not respond within 5 minutes, repeat dose x1. Start D5W at 100 mL/hour until ordering provider can be reached. Repeat blood glucose in 15 minutes. If blood glucose is less than 70 mg/dL, repeat treatment and recheck blood glucose in 15 minutes x2. If using Glucostabilizer, dose as instructed per system. glucagon (human recombinant) injection 1 mg 1 mg, IntraMUSCular, PRN, low blood sugar, Blood glucose less than 70 mg/dL and patient NOT ALERT or NPO and does not have IV access., Starting on Clara 06/01/23 at 1328, Recovery & On Unit, After administration, attempt intravenous access and start D5W at 100 mL/hr. Repeat blood glucose in 15 minutes x2 and notify provider. glucose oral gel 15 g 15 g, Oral, As needed, low blood sugar, Starting on Clara 06/01/23 at 1328, Recovery & On Unit, If blood glucose less than 50 mg/dL and patient ALERT and NOT NPO, give 2 tubes glucose gel. If blood glucose less than 70 mg/dL and patient ALERT and NOT NPO, give 1 tube glucose gel. Repeat blood glucose in 15 minutes. If blood glucose is less than 70 mg/dL, repeat treatment and recheck blood glucose in 15 minutes x2 and notify provider. ipratropium-albuterol (Duo-Neb) 0.5-2.5 mg/3 mL nebulizer solution 3 mL 3 mL, Nebulization, 3 times daily PRN, wheezing, shortness of breath, Starting on Clara 06/01/23 at 1328, Recovery & On Unit magnesium hydroxide (Milk of Magnesia) 400 MG/5ML suspension 30 mL 30 mL, Oral, Daily PRN, constipation, Starting on Clara 06/01/23 at 1328, Recovery & On Unit, 1st line for treatment of constipation - give scheduled if no bowel movement in past 24 hours magnesium sulfate IVPB 4,000 mg(Linked Group 1) 4,000 mg, IntraVENous, at 25 mL/hr, Administer over 4 Hours, As needed, Per Magnesium Replacement Protocol, Starting on Clara 06/01/23 at 1328, Recovery & On Unit, Mg Lab Replacement Action 1.4-1.6 2 gram IVPB x 1 doses 1.0-1.3 4 gram IVPB x 1 doses Less than 1.0 CALL PHYSICIAN and 4 gram IVPB x 1 doses Infuse at 1 gram/hr. Repeat Mag level next AM. Not for use in Patients with CrCl less than 30 mL/min. magnesium sulfate IVPB premix 2,000 mg(Linked Group 1) 2,000 mg, IntraVENous, at 25 mL/hr, Administer over 2 Hours, As needed, Per Magnesium Replacement Protocol, Starting on Clara 06/01/23 at 1328, Recovery & On Unit, Mg Lab Replacement Action 1.4-1.6 2 gram IVPB x 1 doses 1.0-1.3 4 gram IVPB x 1 doses Less than 1.0 CALL PHYSICIAN and 4 gram IVPB x 1 doses Infuse at 1 gram/hr. Repeat Mag level next AM. Not for use in Patients with CrCl less than 30 mL/min. naloxone (Narcan) injection 0.4 mg 0.4 mg, IntraVENous, Every 5 min PRN, opioid reversal, respiratory depression, Starting on 06/03/23 at 1015, +++ For RR <10, pinpoint pupils, over sedation for opioid reversal - MUST notify mechanical systems control engineer provider immediately after first dose, may give IM or SQ if no IV access +++ ondansetron (Zofran) injection 4 mg(Linked Group 2) 4 mg, IntraVENous, Every 6 hours PRN, nausea, vomiting, Starting on Clara 06/01/23 at 1328, Recovery & On Unit, 1st Line. Give IV if patient is unable to take orally. If inadequate response within 60 minutes, proceed to next-line agent or contact provider if no further options ordered. ondansetron ODT (Zofran-ODT) disintegrating tablet 4 mg(Linked Group 2) 4 mg, Oral, Every 8 hours PRN, nausea, vomiting, Starting on Clara 06/01/23 at 1328, Recovery & On Unit, 1st Line. If inadequate response within 60 minutes, proceed to next-line agent or contact provider if no further options ordered. Patient should allow tablet to dissolve on tongue. Do not remove from blister pack until just before administering. oxyCODONE (Roxicodone) immediate release tablet 10 mg(Linked Group 3) 10 mg, Oral, Every 6 hours PRN, severe pain (7-10), Starting on Clara 06/01/23 at 1328, Recovery & On Unit 0605 (See Alternative - Provider: Jessica Estrada, BEBA)1414 (See Alternative - Provider: Jacque Lal, BEBA) 2050 (See Alternative - Provider: Evelia Leon, BEBA) 0621 (See Alternative - Provider: Shahrzad Nazario, BEBA) oxyCODONE (Roxicodone) immediate release tablet 5 mg(Linked Group 3) 5 mg, Oral, Every 6 hours PRN, moderate pain (4-6), Starting on Clara 06/01/23 at 1328, Recovery & On Unit 0605 (Given - Provider: Jessica Estrada, BEBA)1414 (Given - Provider: Jacque Lal, BEBA) 2050 (Given - Provider: Evelia Leon, BEBA) 0621 (Given - Provider: Shahrzad Nazario, BEBA) potassium chloride CR (Klor-Con M10) ER tablet 20 mEq 20 mEq, Oral, PRN, Hypokalemia, Starting on Mon06/02/23 at 0000, Phase II/On Unit, If patient is intubated or not tolerating PO use PRN IV replacement protocol Potassium level Dose LESS than 3.0 = Give 20 mEq x 3 doses 3.0-3.6 = Give 20 mEq x 2 doses Recheck potassium level 2 hour after replacement given, place order for lab under [place] If potassium level LESS than 3 after 1st replacement: Call surgeon. Do not crush or break. Do not crush or chew. sodium chloride 0.9% (NS) flush 10 mL 10 mL, IntraVENous, PRN, line care, Starting on Clara 06/01/23 at 1328, Recovery & On Unit, After every IV line use Linked Groups Order Group 1: magnesium sulfate IVPB premix 2,000 mgJump to med 2,000 mg, IntraVENous, at 25 mL/hr, Administer over 2 Hours, As needed, Per Magnesium Replacement Protocol, Starting on Clara 06/01/23 at 1328, Recovery & On Unit, Mg Lab Replacement Action 1.4-1.6 2 gram IVPB x 1 doses 1.0-1.3 4 gram IVPB x 1 doses Less than 1.0 CALL PHYSICIAN and 4 gram IVPB x 1 doses Infuse at 1 gram/hr. Repeat Mag level next AM. Not for use in Patients with CrCl less than 30 mL/min. Or magnesium sulfate IVPB 4,000 mgJump to med 4,000 mg, IntraVENous, at 25 mL/hr, Administer over 4 Hours, As needed, Per Magnesium Replacement Protocol, Starting on Clara 06/01/23 at 1328, Recovery & On Unit, Mg Lab Replacement Action 1.4-1.6 2 gram IVPB x 1 doses 1.0-1.3 4 gram IVPB x 1 doses Less than 1.0 CALL PHYSICIAN and 4 gram IVPB x 1 doses Infuse at 1 gram/hr. Repeat Mag level next AM. Not for use in Patients with CrCl less than 30 mL/min. Group 2: ondansetron ODT (Zofran-ODT) disintegrating tablet 4 mgJump to med 4 mg, Oral, Every 8 hours PRN, nausea, vomiting, Starting on Clara 06/01/23 at 1328, Recovery & On Unit, 1st Line. If inadequate response within 60 minutes, proceed to next-line agent or contact provider if no further options ordered. Patient should allow tablet to dissolve on tongue. Do not remove from blister pack until just before administering. Or ondansetron (Zofran) injection 4 mgJump to med 4 mg, IntraVENous, Every 6 hours PRN, nausea, vomiting, Starting on Clara 06/01/23 at 1328, Recovery & On Unit, 1st Line. Give IV if patient is unable to take orally. If inadequate response within 60 minutes, proceed to next-line agent or contact provider if no further options ordered. Group 3: oxyCODONE (Roxicodone) immediate release tablet 5 mgJump to med 5 mg, Oral, Every 6 hours PRN, moderate pain (4-6), Starting on Clara 06/01/23 at 1328, Recovery & On Unit Or oxyCODONE (Roxicodone) immediate release tablet 10 mgJump to med 10 mg, Oral, Every 6 hours PRN, severe pain (7-10), Starting on Clara 06/01/23 at 1328, Recovery & On Unit FOR RECORDS PERTAINING TO PATIENTS WHO ARE [...] BE BASED ON THE PRIMARY CLINICAL RECORDS. [facility]. provides no warranty or guarantee of the accuracy or completeness of information in this document.
--- NOTE | 2024-11-10 17:21 | EDS_ITS ---
HPI History of Present Illness Chief Complaint: Dizziness Informant: patient Narrative Narrative: Presenting with lightheaded symptoms today worse when getting up. He has been out working the yard last couple days. Today only had a green tea. No chest pains no shortness of breath. No syncopal episodes. 5 vessel CABG last year in [place]. He states very minimal cough. Denies any heart failure with his bypass surgery. Denies any black or bloody stools.Denies dizzy spinning sensations. Reports has been self cathing for over a year as he has prostate issues. No fever or chills. Prior similar symptoms: Yes PFSH [facility] Medical History Urinary retention ELIZABETH (dyspnea on exertion) History of pulmonary embolus (PE) History of inferior wall myocardial infarction NSVT (nonsustained ventricular tachycardia) History of alcohol abuse Atherosclerosis of coronary artery of squ[place] heart without angina pectoris COVID-19 Hyperlipidemia Mucous cyst of digit of hand Hay fever Hemorrhoids Hypertension Home Medications ?Medication ?Instructions ?Recorded ?Last Taken ?Type aspirin 81 mg chewable tablet 81 mg PO DAILY 06/25/21 05/19/23 History multivitamin 1 tab PO DAILY 03/09/23 Unkn own History amlodipine 5 mg tablet 5 mg PO DAILY 10/17/23 Unkno wn History tamsulosin 0.4 mg capsule (Flomax) 0.8 mg PO QHS 10/16 Unknown History carvedilol 25 mg tablet 25 mg PO .COMPLEX #180 tabs 05/06/24 Unknown Rx carboxymethylcellulose sodium 0.25 1 drp ophthalmic (e ye) TID 08/23/24 Unknown History % eye drops magnesium oxide 250 mg PO QDAY 08/23/24 Unkn own History meloxicam 15 mg tablet 15 mg PO QDAY 08/23/24 Unkno wn History rosuvastatin 40 mg tablet 40 mg PO QDAY 08/23/24 Unkno wn History Allergy/AdvReac Type Severity Reaction Status Date / Time adhesive (adhesives) AdvReac Intermediate Rash Verified 11/10/24 16:26 Family History Mother CVA (cerebral vascular accident) Diabetes Surgical History S/P CABG x 5 (03/07/24) History of coronary artery stent placement (~01/2009) Social History Smoking Status: Former smoker how long ago did patient quit [id number] and again in 2014 alcohol intake: current Alcohol type: beer details: weekly substance use type: does not use ROS ROS ED Constitutional Constitutional ED: Denies chills, fever(s) or sweats ENT ENT ED: Denies sore throat Cardiovascular Cardiovascular: Reports other Details: Lightheaded ; Denies chest pain, leg edema, palpitations or racing heartbeat Respiratory/Chest Respiratory/Chest: Denies cough, dyspnea or dyspnea on exertion Gastrointestinal Gastrointestinal: Denies abdominal pain, diarrhea, nausea or vomiting Genitourinary Genitourinary ED: Denies dysuria, hematuria or urinary frequency Musculoskeletal Musculoskeletal: Denies back pain, extremity pain or neck pain Integumentary Denies rash or wounds Neurologic Neurologic: Denies headache(s), paresthesias or weakness EXAM Physical Exam Const Vital Signs: 11/10/24 16:26 11/10/24 18:42 11/10/24 19:16 Temperature 97.3 F L 97.3 F L Temperature Source Temporal Pulse Rate 76 67 67 Respiratory Rate 14 15 15 Blood Pressure 129/88 H 119/80 119/80 Blood Pressure Mean 101 93 93 Pulse Ox 98 97 97 Oxygen Delivery Method Room Air Room Air Positive well nourished and well developed General Appearance ED: well developed and NAD HEENT HEENT Narrative: Mild dry mucosal membranes. normocephalic and atraumatic Eyes General Eye ED: Yes normal appearance of both eyes; Negative for pale conjunctiva Neck full ROM Chest Wall Chest Narrative: Healed midline chest scar. Chest: Negative for tenderness Resp normal respiratory effort and normal air movement Effort and Inspection: symmetric chest movement; Negative for respiratory distress Cardio regular rate, regular rhythm and no murmurs Peripheral Pulses: pulses 2+ throughout GI normal to inspection, nondistended, normoactive bowel sounds and non-tender Palpation: Negative for guarding or rebound tenderness present Extremity normal to inspection General Extremety ED: Negative for edema or tenderness General Extremity: Negative for edema Neuro oriented x3, CN's II-XII intact bilaterally and no sensory deficits noted Sensorium / Orientation: awake and alert Skin no rashes or lesions noted and no wounds MDM MDM MDM Narrative Medical decision making narrative: Interventions / MDM: Differential diagnosis: Near syncope, dehydration Diagnosis considered but do not suspect: Electrolyte abnormalities however labs are stable. My EKG interpretation: Sinus rate of 71, no ST changes. T wave inversions lateral leads and inferior leads. QTc 434. Similar February 2024. Imaging independently reviewed and interpreted by myself: N/A External documents reviewed: N/A Test considered but not ordered:N/A ED course: Patient lightheaded symptoms concerning for orthostasis dry mucosal membranes. IV established for fluids will check basic labs. Self caths due to prostate issues. Will check UA. Labs are stable. Urine noted 25 leukocyte 3+ bacteria. Denies chills white count is normal. I will send for urine culture. Will not treat unless culture positive. Clinically feeling better after IV fluids he is able to ambulate with no return of symptoms. Encouraged continued oral fluids for hydration at home. Outpatient follow-up with his doctor. All questions were answered. Re-evaluation: stable Disposition discussed with patient/family/significant other: Patient Case discussed with consulting clinician: N/A This note was generated with [employer] dictation software. It may contain incorrect words, spelling, and punctuation that were not noted in checking the note before signing. Lab Data Attestation: I reviewed the patient's lab results. Labs: Laboratory Results - last 24 hr 11/10/24 11/10/24 16:56 17:34 WBC 5.4 RBC 4.62 Hgb 13.5 Hct 41.0 MCV 88.7 MCH 29.2 MCHC 32.9 RDW Std Deviation 42.6 RDW Coeff of Tena 13.2 Plt Count 198 MPV 9.1 Immature Gran % (Auto) 0.400 Neut % (Auto) 56.4 Lymph % (Auto) 28.5 [place] % (Auto) 10.5 H Eos % (Auto) 3.5 Baso % (Auto) 0.7 Absolute Neuts (auto) 3.1 Absolute Lymphs (auto) 1.55 Nucleated RBC % 0 Sodium 139 Potassium 4.5 Chloride 105 Carbon Dioxide 23.0 Anion Gap 11 BUN 20 H Creatinine 0.82 Estim Creat Clear Calc 111.10 Est GFR (MDRD) Non-Af 97 BUN/Creatinine Ratio 24.2 H Glucose 181 H Calcium 9.2 Urine Color Yellow Urine Clarity Clear Urine pH 6.0 Ur Specific [place] 1.030 Urine Protein 30 H Urine Glucose (UA) Normal Urine Ketones Negative Urine Occult Blood 10 H Urine Nitrite Negative Urine Bilirubin Negative Urine Urobilinogen 1 H Ur Leukocyte Esterase 25 H Urine RBC 0-5 SEEN Urine WBC 5-10 SEEN Ur Squamous Epith Cells 0-5 SEEN Urine Bacteria 3+ Coarse Granular Casts 0-5 SEEN Urine Mucus 2+ Discharge Plan Triage Chief Complaint: Dizziness ED Provider: Maxim Medley Dx/Rx/DC Orders Clinical Impression: Near syncope, Dehydration Instructions: Dehydration, ED Near-Fainting, Uncertain Cause Prescriptions: No Action multivitamin Tablet 1 tab PO DAILY tamsulosin [Flomax] 0.4 mg capsule 0.8 mg PO QHS amlodipine 5 mg tablet 5 mg PO DAILY meloxicam 15 mg tablet 15 mg PO QDAY carboxymethylcellulose sodium 0.25 % drops 1 drp ophthalmic (eye) TID rosuvastatin 40 mg tablet 40 mg PO QDAY magnesium oxide 250 mg magnesium tablet 250 mg PO QDAY aspirin [Baby Aspirin] 81 mg Tablet,Chewable 81 mg PO DAILY carvedilol 25 mg tablet 25 mg PO .COMPLEX Qty: 180 3RF Rx Instructions: 25 mg orally twice daily: Fax to [place] at .; must administer with a meal/food Primary Care Provider: [facility] Referrals: [facility] [Primary Care Provider] - 1 Week Activity Restrictions/Additional Instructions: Clinical dehydration. EKG labs are stable. Urine culture sent. You will be contacted if you will require antibiotics. Continue oral fluids for hydration. Print Language: Portuguese Disposition Disposition: Home, Self Care Discharge Date/Time: 11/10/24 19:21
[2024-11-10 17:45] LABS: Color, Urine Yellow (Yellow); Glucose, Dipstick Normal (Normal); Ketone-Dipstick Negative (Negative); Leukocyte Esterase-Dipstick 25 /ul (Negative); Nitrite-Dipstick Negative (Negative); Occult Blood-Urine 10 /ul (Negative); Protein-Dipstick 30 mg/dl (Negative); Specific Gravity, Urine 1.030 (1.002-1.030); Urine Bilirubin Dipstick Negative (Negative)
[2024-11-10 17:49] LABS: Mucous, Urine 2+ /hpf (<or=2+); Red Blood Cells-Urine 0-5 SEEN /hpf (0-5); Squamous Epithelial Cells - UA 0-5 SEEN /hpf (0-5)
[2024-11-10 17:50] LABS: Anion Gap 11 (5-15); BUN 20 mg/dL (4-19); BUN/Creat Ratio 24.2 RATIO (10-20); Calcium,Total 9.2 mg/dL (7.6-11.0); Carbon Dioxide 23.0 mmol/L (21.0-32.0); Chloride 105 mmol/L (98-108); Estimated Creatinine Clearance 111.10 ml/min (50-250); Glucose 181 mg/dL (70-99); Potassium 4.5 mmol/L (3.3-5.1)
[2024-11-10 18:42] VITALS: BP 119/80; PULSE 67; RESP 15; O2SAT 97
[2024-11-10 19:16] VITALS: BP 119/80; PULSE 67; RESP 15; TEMP 36.3; O2SAT 97
== END 2024-11-10 19:21 | disposition home or self-care (01) ==
PROVIDERS: Emergency Provider Emergency Medicine; Visit Provider Emergency Medicine
DX: R55 Syncope and collapse (principal); R42 Dizziness and giddiness; E86.0 Dehydration; B95.7 Other staphylococcus as the cause of diseases classified elsewhere; I25.10 Atherosclerotic heart disease of native coronary artery without angina pectoris; I10 Essential (primary) hypertension; I25.2 Old myocardial infarction; Z16.11 Resistance to penicillins; Z95.5 Presence of coronary angioplasty implant and graft; Z79.82 Long term (current) use of aspirin; Z79.899 Other long term (current) drug therapy; Z86.16 Personal history of COVID-19; Z87.891 Personal history of nicotine dependence
CPT/HCPCS: 80048; 81001; 85025; 87077; 87086; 87088; 87186; 93005; 96360; 96361; 99284; A4216

== ENCOUNTER → 2024-12-03 | Outpatient (CLI) | payer OTHER, SELFPAY ==
[2024-12-03 17:03] LABS: AST(SGOT) 31 U/L (<=37); Alanine Aminotransfer ALT/SGPT 39 U/L (<=46); Albumin, Serum 4.5 g/dL (3.4-4.8); Alkaline Phosphatase 88 U/L (40-129); Bilirubin, Direct 0.18 mg/dL (0.00-0.30); Cholesterol 108 mg/dL (<=200); Globulin 2.9 g/dL (2.2-4.2); Low Density Lipoprotein Calc. 38 mg/dL; Triglycerides 160 mg/dL; Very Low Density Lipoprotein 32 mg/dL (5-40); cholesterol:hdl ratio screen 2.81
== END | disposition home or self-care (01) ==
LOC: LAB 14:07
PROVIDERS: Referring Provider Student in an Organized Health Care Education/Training Program; Visit Provider Student in an Organized Health Care Education/Training Program
DX: I25.10 Atherosclerotic heart disease of native coronary artery without angina pectoris (principal); E78.5 Hyperlipidemia, unspecified; Z95.1 Presence of aortocoronary bypass graft
CPT/HCPCS: 36415; 80061; 80076

== ENCOUNTER 2025-02-15 00:28 | Emergency (ER) | payer OTHER, SELFPAY ==
[2025-02-15 00:30] VITALS: BP 124/88; PULSE 73; RESP 12; TEMP 36.6; O2SAT 97; BMI 37.3
--- NOTE | 2025-02-15 01:10 | CT_ITS ---
PROCEDURE: BRAIN/HEAD WITHOUT CONTRAST 02/15/2025 REASON FOR EXAM: DIZZINESS TECHNIQUE: Procedure Code: CTBR Modality: CT Procedure: BRAIN/HEAD WITHOUT CONTRAST Coronal and Sagittal reconstruction series were provided. One or more dose reduction techniques were used (e.g., Automated exposure control, adjustment of the mA and/or kV according to patient size, use of iterative reconstruction technique. RADIATION DOSE SUMMARY: CTDI Vol 44.99 mGy DLP :846.73 mGycm COMPARISON: 07-Mar-2024 FINDINGS: Bilateral cerebral periventricular white matter faint hypodensities, suggestive of chronic small vessel ischemia. Santos-white matter differentiation is maintained. Unremarkable posterior fossa structures. No intracerebral or extra axial hemorrhage. Dilated ventricular system, cortical sulci and extra-axial CSF spaces. No definite calvarial fractures. No midline shifts or deformity. The osseous structures in the skull base are unremarkable. Paranasal sinuses are unremarkable. Vascular atheromatous calcifications. CT/Brain/Head without Contrast IMPRESSION: No acute cerebrovascular abnormalities. If clinical symptoms persist, further e valuation with MRI may be considered as clinically warranted. No intra or extra-axial acute hemorrhage. Bilateral cerebral mild microvascular ischemic changes with brain involutional changes. Stable. [facility]
[2025-02-15] MEDS: 0.9% Normal Saline (1000mL) 1,000 ML 999 ML IV (01:19)
[2025-02-15 01:26] LABS: Hematocrit 42.3 % (40-54); Hemoglobin 13.8 g/dL (13.0-16.5); Immature Granulocytes Count 0.010 X10^3/uL (0.0-0.0); Mean Corp Hgb Conc 32.6 g/dL (32-36); Mean Corpuscular Volume 87.8 fL (80-94); Mean Platelet Vol. 10.1 fl (6.2-12.0); NRBC Flagged by Analyzer 0 % (0-5); Platelet Count 213 K/mm3 (150-450); RBC Distribution Width CV 13.2 % (11.6-14.6); RBC Distribution Width SD 42.5 fl (35.1-43.9); Red Blood Count 4.82 M/mm3 (4.6-6.2); White Blood Count 5.8 K/mm3 (4.4-11.0)
[2025-02-15 01:46] LABS: Magnesium 2.2 mg/dL (1.5-2.2)
[2025-02-15 01:47] LABS: Anion Gap 10 (5-15); BUN 22 mg/dL (4-19); BUN/Creat Ratio 24.5 RATIO (10-20); Calcium,Total 9.1 mg/dL (7.6-11.0); Carbon Dioxide 23.6 mmol/L (21.0-32.0); Chloride 102 mmol/L (98-108); Estimated Creatinine Clearance 104.52 ml/min (50-250); Glucose 106 mg/dL (70-99); Potassium 4.6 mmol/L (3.3-5.1)
--- OUTSIDE RECORDS SUMMARY | 2025-02-15 01:59 | XMS RPT_ITS | CCD ---
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 Meek Gaines Attending Provider [phone] Dr. Meek Gaines Referring Provider [phone] Dr. Meek Gaines Other Provider Crissy Engle DO Primary Care Provider GISELLA HUANG MD Attending Unavailable PHYSICIAN, NOT RECORDED Primary Care Unavaila ble PHYSICIAN, NONE Attending Unavailable PHYSICIAN, NONE Primary Care [facility] [facility] [place] Referring Provider Unavailable MIESHA Farrell Attending Provider Dr. Meek Gaines Attending Provider [phone] Dr. Meek Gaines Referring Provider [phone] Dr. Meek Gaines Other Provider [facility] [facility] [place] Referring Provider Unavailable MIESHA Farrell Attending Provider GISELLA HUANG Attending Unavailable CRISSY ENGLE Primary Care Unavailable CRISSY ENGLE Primary Care Unavailable DARION LOPES Attending Unavailable CRISSY ENGLE Primary Care Unavailable DARION LOPES Attending Unavailable CRISSY ENGLE Primary Care Unavailable DARION LOPES Attending Unavailable ROBERTO, CRISSY Primary Care Unavailable SAL, GISELLA Referring Unavailable GISELLA HUANG Attending Unavailable SAL, GISELLA Admitting Unavailable JOSÉ MIGUEL HORNER [facility] [facility] [place] Referring Provider Unavailable Michelle Farrell Attending Provider [phone] [facility] [place] Unavailabl e Santo GREENBERG, Dr. Pan Emergency Provider Santo GREENBERG, Dr. Pan Attending Provider Candelario Marinelli Attending Provider [phone] [facility] [place] Referring Unavailable Michelle Farrell Attending [facility]avail [facility] [place] [facility] Unavailable Maxim Medley [facility] [place] [facility] [place] Referring Unavailable Michelle Farrell Attending [facility] [place] [facility] [place] [facility] Unavailable Candelario Del Valle Attending [facility] [place] [facility] Unavailable Demiter, Candelario Attending Unavailable Demiter, Candelario Referring [facility] [place] [facility] Un[place] Daniel Coffey Attending [place] Primary Care Physician Unavailab Jamil, Dr. Pan Attending Physician [phone] Maxim Medley DO Emergency Department Physician [facility] Primary Care Physician Unavailab [facility], [place] Referring Provider Unavailable Candelario Marinelli Attending Physician Candelario Marinelli Referring Provider [phone] Allergies Allergy Classification Reported Allergen(s) Allergy Type Date of Onset Reaction(s) Facility (5 sources) Adhesive agent; Translations: [adhesive] Propensity to adverse reactions 08-23-2024 [facility] Medications Current Medications Medication Drug Class(es) Dates [...] at 1400, Recovery & On Unit carboxymethylcellulose sodiu m 2.5 mg/ml ophthalmic solution (6 sources) Start: 08-23-2024 End: 12-03-2024 carvedilol 25 mg oral tablet (20 sources) alpha-Adrenergic Constance, beta-Adrenergic Constance Start: 07-26-2023 End: 05-06-2024 Start: 06-04-2023 End: 09-04-2023 take 1 tablet by mouth twice daily Carvedilol 12.5 mg tablet Discontinued 12.5 mg PO TWICE A DAY 90 0 June 20, 2023 11:03am July 26, 2023 [...] Discontinued 6.25 mg PO TWICE A DAY 90 0 March 09, 2023 10:33am June 20, 2023 11:06am Start: 09-18-2018 End: 03-09-2023 Carvedilol 12.5 mg tablet Discontinued 0.5 {tbl} PO TWICE A DAY 90 0 September 18, 2018 12:00am March 09, 2023 [...] 9:38am magnesium oxide 250 mg oral tablet (4 sources) Start: 08-23-2024 take 1 tablet by mouth once daily meloxicam 15 mg oral tablet (6 sources) Nonsteroidal Anti-inflammatory Drug Start: 08-23-2024 End: 12-03-2024 take 1 tablet by mouth once daily as needed Multiple Vitamin (multivitamin) capsule (13 sources) take [...] DAILY March 09, 2023 12:00am Multivitamin tablet (4 sources) Start: 03-09-2023 Start: 03-09-2023 Multivitamin t ablet Active 1 [...] take 1 tablet by mouth once daily Start: 06-20-2023 End: 08-23-2024 take 4 tablets [...] 09, 2023 1:00am June 20, 2023 11:06am Completed/Discontinued Medications Medication Drug Class(es) Dates Sig (Normalized) Sig (Original) 20 ml albumin human, skilled nursing 250 mg/ml injection (2 sources) Human Serum [...] On Unit amLODIPine 5 mg oral tablet (20 sources) Dihydropyridine Calcium Channel Constance Start: 03-07-2024 End: 08-23-2024 take 2 tablets by mouth once daily Amlodipine 5 mg tablet Discontinued 10 mg PO DAILY 60 30 0 March 07, 2024 1:00am August 23, 2024 8:19am Start: 10-17-2023 take 1 tablet by maxwell th once daily Start: 06-07-2023 End: 07-07-2023 take 1 tablet by mouth once daily amLODIPine (Norvasc) 2.5 MG tablet Take 1 tablet (2.5 mg) by mouth daily. 30 tablet 0 06/07/2023 Active Start: 06-02-2023 End: 06-06-2023 amLODIPine (Norvasc) tablet 2.5 mg Apple Cider Vinegar (10 sources) Start: 03-09-2023 End: 03-09-2023 apple cider [...] 9:52am ascorbic acid 1000 mg oral tablet (20 sources) Vitamin C Start: 03-09-2023 End: 03-09-2023 [...] Start: 06-25-2021 take 1 tablet by maxwell once daily Start: 09-20-2013 End: 10-02-2017 Aspirin 325 MG [...] bolus challenge: lactated ringers bolus, Starting on Mon06/01/23 at 1328, For 2 doses, Phase II/On [...] Surgical Prophylaxis cephalexin 500 mg oral capsule (20 sources) Cephalosporin Antibacterial Start: 07-11-2023 End: 07-24-2023 take 1 capsule by mouth three times daily Cephalexin 500 mg capsule Discontinued 500 mg PO THREE TIMES A DAY 30 10 0 July 17, 2023 8:15am July 26, 2023 12:00am July 24, 2023 1:05pm Start: 09-28-2017 End: 09-18-2018 take 1 capsule by mouth every twelve hours Cephalexin 500 MG capsule Discontinued 500 mg PO EVERY 12 HOURS 10 0 September 28, 2017 12:00am September 18, 2018 [...] / glucosamine hydrochloride 250 mg oral tablet (10 sources) Start: 03-09-2023 End: 06-20-2023 Glucosamine-Chondr oitin (Osteo Bi-Flex) 250-200 mg tablet Discontinued 1 {tbl} PO TWICE A DAY March 09, 2023 1:00am June 20, 2023 11:04am ciprofloxacin 500 mg oral tablet (17 sources) Quinolone Antimicrobial Start: 03-07-2024 End: 08-23-2024 take 1 tablet by mouth twice daily Ciprofloxacin Hcl 500 mg tablet Discontinued 500 mg PO TWICE A DAY 14 7 0 March 07, 2024 1:00am August 23, 2024 8:22am Start: 05-29-2016 End: 09-18-2018 take 1 tablet by mouth twice daily Ciprofloxacin Hcl 500 MG tablet Discontinued 500 mg PO TWICE A DAY 14 0 May 29, 2016 1:00am September 18, 2018 11:25am 100 ml dexmedetomidine 0.004 mg/ml injection (2 sources) Central alpha-2 Adrenergic Agonist Start: 06-01-2023 End: 06-02-2023 dexmedeTOMIDine in NS (Precedex) 400 mcg in 100 mL (4 mcg/mL) infusion docusate sodium 50 mg / sennosides, skilled nursing 8.6 mg oral tablet (2 sources) Start: 06-01-2023 End: 06-06-2023 take 2 tablets by mouth once daily for constipation 2 tablet, Oral, Nightly, First dose on Clara 06/01/23 at 2100, Recovery & On Unit, Bowel Regimen - for prevention of constipation. echinacea (10 sources) Start: 03-09-2023 End: 03-09-2023 echinacea Discontinued [...] March 09, 2023 9:51am Echinacea purpurea extract (13 sources) Start: 09-20-2013 End: 09-18-2018 take 750 [...] 2018 10:25am furosemide 20 mg oral tablet (10 sources) Loop Diuretic Start: 03-07-2024 End: 08-23-2024 take 1 tablet by mouth every other day Furosemide (Lasix) 20 mg tablet Discontinued 20 mg PO EVERY OTHER DAY 7 0 March 07, 2024 1:00am August 23, 2024 8:22am Start: 06-02-2023 End: 06-04-2023 furosemide (Lasix) injection 40 mg ginseng (10 sources) Start: 03-09-2023 End: 03-09-2023 ginseng Discontinued [...] or glucagon. 0.5 ml heparin sodium, porcine 34216 unt/ml prefilled syringe (6 sources) Unfractionated Heparin, [...] Units/hr (1-50 mL/hr), IntraVENous, Continuous, Starting on Mon06/01/23 at 1330, Recovery & On Unit, As [...] mg tablet Discontinued 2.5 mg PO DAILY 90 0 September 18, 2018 12:00am June 20, 2023 11:04am Start: 09-18-2018 End: 06-20-2023 take 2.5 mg by mouth once daily Lisinopril Discontinue d 2.5 MG PO DAILY 90 September 18, 2018 12:00am June 20, 2023 [...] 8 HOURS NEEDED as needed for Dizziness 20 0 June 25, 2021 10:58am June 20, 2023 [...] take 1 tablet by mouth once daily Multivitamin,It-Devr-Uhagpnmv Discontinu ed 1 TABLET PO DAILY May 29, 2016 1:00am September 18, 2018 11:26am Start: 05-29-2016 End: 09-18-2018 take 1 tablet by mouth once daily Multivitamin,Cg-Qsbm-Lzhntnbq Discontinu ed 1 TABLET PO DAILY May 29, 2016 12:00am September 18, 2018 10:26am Multivitamin,Ak-Odkl-Kgzehfi s 1 TABLET tablet (4 sources) Start: 05-29-2016 End: 09-18-2018 take 1 tablet by mouth once daily Multivitamin,Fb-Nkcf-Fycxcgdy 1 TABLET tablet Discontinued 1 {tbl} PO DAILY May 29, 2016 1:00am September 18, 2018 11:26am mupirocin 0.02 mg/mg topical ointment (6 sources) RNA Synthet ase Inhibit or Antibac terial Start: 06-01-2023 End: 06-04-2023 Nasal, 2 times daily, First dose on 06/01/23 at 1330, For 4 days, Phase [...] is not achieving the goal of therapy nitrofurantoin, macrocrystals 25 mg / nitrofurantoin, monohydrate 75 mg oral capsule (2 sources) Nitrofuran Antibacterial Start: 11-12-2024 End: 12-03-2024 take 1 capsule by mouth every twelve hours at mealtime Nitrofurantoin Monohyd/M-Cryst (Macrobid) 100 mg capsule Discontinued 100 mg PO Q12H 10 5 0 November 12, 2024 12:00am December 03, 2024 12:59pm must administer with a meal/food 250 ml nitroglycerin 0.2 mg/ml injection (18 sources) Nitrate Vasodilator Start: 06-01-2023 End: 06-02-2023 5-300 mcg/min (1.5-90 mL/hr), IntraVENous, Continuous, Starting on Mon06/01/23 at 1330, Phase II/On Unit, If dose [...] over 2 Minutes, Daily, First dose on 3/8/24 at 0600, Phase II/On Unit, Reconstitute with 10 mL 0.9 % sodium chloride and administer over at least 2 minutes. polyethylene glycol 3350 75479 mg powder for oral solution (2 sources) [...] chew. promethazine hydrochloride 25 mg oral tablet (14 sources) Phenothiazine Start: 11-01-2019 End: 06-20-2023 take 1 tablet by mouth every six hours as needed for nausea Promethazine 25 MG tablet Discontinued 25 mg PO EVERY 6 HOURS NEEDED as needed for Nausea 10 0 November 01, 2019 12:00am June 20, 2023 [...] ranolazine 500 mg extended release oral tablet (14 sources) Anti-anginal Start: 03-09-2023 End: 06-20-2023 take [...] 06/01/23 at 2100, Recovery & On Unit Start: 06-01-2023 End: 06-02-2023 take 20 mL intravenously every hour 20 mL/hr, IntraVENous, Continuous, Starting on Clara 06/01/23 at 1330, Recovery & On Unit, 20 ml/hr to SP(introducer) and WT on [place] Koki Catheter; once [place] discontinued run at 20 ml/hr through SP(introducer) Start: 06-01-2023 End: 06-06-2023 take 10 mL intravenously once as needed 10 mL, IntraVENous, PRN, line care, Starting on Clara 06/01/23 at 1328, Recovery & On Unit, After every IV line use Start: 05-31-2023 End: 06-01-2023 take 5-40 mL intravenously every twelve hours 5-40 mL, IntraVENous, Every 12 hours, First dose on 05/31/23 at 1500, For Line Patency: Peripheral IV [...] 5ML injection - Pyxis ADS Override Pull tamsulosin hydrochloride 0.4 mg oral capsule (20 sources) alpha-Adrenergic Constance Start: 10-17-2023 End: 12-03-2024 take 2 capsules by mouth at bedtime Tamsulosin (Flomax) 0.4 mg capsule Discontinued 0.8 mg PO AT BEDTIME October 17, 2023 12:00am December 03, 2024 12:59pm Start: 06-20-2023 End: 07-24-2023 take 2 capsules [...] (Flomax) 24 hr ca psule 0.4 mg ubidecarenone 200 mg oral capsule (11 sources) Start: 03-09-2023 End: 06-20-2023 take 10 capsules by mouth once daily Coenzyme Q10 200 mg capsule Discontinued 200 mg PO DAILY March 09, 2023 1:00am June 20, 2023 11:04am End: 05-31-2023 take 4 capsules by mouth once daily coenzyme Q-10 50 MG capsule Take 200 mg by mouth daily. 0 05/31/2023 Discontinued (Med list cleanup) vitamin b12 1 mg oral tablet (13 sources) Vitamin B12 Start: 05-29-2016 End: 09-18-2018 [...] 2023 1:00am June 20, 2023 11:06am Problems Problem Classification Problem Date Documented Da te Episodic/Chronic Cardiac dysrhythmias (19 sources) Nonsustained ventricular tachycardia ; Translations: [Nonsustained ventricular tachycardia] 03-09-2023 Chronic Conditions associated with dizziness or vertigo (20 sources) Dizziness; Translations: [Dizziness and giddiness] Onset: 11-14-2024 11-02-2019 Episodic Coronary atherosclerosis and other heart disease (20 sources) Coronary atherosclerosis; Translations: [Atherosclerotic heart disease of [place] coronary artery without angina pectoris] Onset: 05-24-2023 03-09-2023 Chronic Coronary atherosclerosis and other heart disease (9 sources) Presence of aortocoronary bypass graft; Translations: [Aortocoronary bypass status] Onset: 07-04-2023 06-20-2023 Episodic Disorders of lipid metabolism (20 sources) Hyperlipidemia; Translations: [Hyperlipidemia, unspecified] Onset: 12-03-2024 03-09-2023 Chronic Essential hypertension (20 sources) Hypertensive disorder; Translations: [Essential (primary) hypertension] 11-02-2019 Chronic Fluid and electrolyte disorders (15 sources) Mild dehydration; Translations: [Dehydration] 04-16-2022 Episodic Genitourinary symptoms and ill-defined conditions (9 sources) Retention of urine; Translations: [Retention of urine, unspecified] 06-06-2023 Episodic Nonspecific chest pain (13 sources) Chest pain; Translations: [Chest pain, unspecified] 03-09-2023 Episodic Open wounds of extremities (20 sources) Laceration of upper limb; Translations: [Laceration of unspecified muscle, fascia and tendon at wrist and hand level, right hand, initial encounter] 10-02-2017 Episodic Open wounds of head; neck; and trunk (7 sources) Local infection of wound; Translations: [Unspecified open wound of right front wall of thorax without penetration into thoracic cavity, initial encounter] 07-17-2023 Episodic Other connective tissue disease (13 sources) Digital mucous cyst; Translations: [Ganglion, unspecified hand] 09-11-2020 Episodic Other ear and sense organ disorders (13 sources) Tinnitus; Translations: [Tinnitus, unspecified ear] 07-03-2021 Episodic Other lower respiratory disease (10 sources) Dyspnea on exertion; Translations: [Other forms of dyspnea] 03-09-2023 Episodic Other lower respiratory disease (3 sources) Other forms of dyspnea; Translations: [Other respiratory abnormalities] 03-09-2023 Episodic Sprains and strains (13 sources) Sprain of ankle; Translations: [Sprain of unspecified ligament of left ankle, initial encounter] 09-18-2018 Episodic Syncope (3 sources) Near syncope; Translations: [Syncope and collapse] 11-10-2024 Episodic Unclassified (2 sources) New Patient; Translations: [New Patient] Onset: 05-31-2023 Viral infection (12 sources) Disease caused by 2019-nCoV; Translations: [COVID-19] 04-16-2022 Episodic Results Test Name Value Interpretation Reference Range Facility Bilirubin directOrdered By: Candelario Del Valle on 12-03-2024 Bilirubin.direct [Mass/Vol] 0.18 mg/dL 0.00-0.30 [place] Bilirubin, totalOrdered By: Candelario Del Valle on 12-03-2024 Bilirubin [Mass/Vol] 0.35 mg/dL 0.00-1.30 [facility] Calculated very low density lipoprotein (VLDL) cholesterol measurementOrdered By: Candelario Del Valle on 12-03-2024 Calculated very low density lipoprotein (VLDL) cholesterol measurement 32 mg/dL 5-40 [facility] Visit Reporton Cardiology Visit Report [facility] [address] [place] [address] OFFICE VISIT Date of Service: 12/03/24 MR#: [id number] Acct: [id number] Name: SYLVESTER LACY Rep #: [id number] : 1960 Provider: MIESHA Jackson Age/Sex: 64/M [place] [facility] [place] Status: Signed HPI HPI History of Present Illness Details: Sylvester Lacy is a 64-year-old male who presents to office today for follow-up for monitoring his cardiovascular health. He has a history of coronary artery disease status post intervention to his RCA and PDA in 2008 and CABG x5 in 2023. He has a history of hypertension. In 2008, patient underwent angioplasty and stenting to his RCA and a hospital in [place]. At that time, he was noted to have severe disease in his LAD and moderate disease in his circumflex. A [place] test done at the [place] in December 2022 demonstrated no reversible ischemia, fixed inferior defect likely represents attenuation artifact versus small possible scar. Wall motion was within normal limits. He was able to walk for 6 minutes on a Kevin protocol achieving 7 METS. He presented to see us in April and at that time was noted to have chest pain with exertion. He underwent cardiac catheterization 05/19/2023 which demonstrated severe triple-vessel disease with 90% stenosis noted of all 3 vessels. He was noted to have a preserved ejection fraction. [facility] [place] and underwent coronary artery bypass surgery x May 31 receiving CAMPBELL to the LAD, free radial from the left radial artery to the second obtuse marginal branch, saphenous vein graft to the right posterior descending artery, saphenous vein graft to the first diagonal branch, saphenous vein graft to the second diagonal branch. He tolerated the procedure well and IntraOp PAM demonstrated no significant abnormalities. Patient had been experiencing some urinary problems [facility] He continues to self cath. Upon presentation today, patient reports doing well. He tolerates working out with lifting weights and walking without any concerns. He denies any recurrence of his chest pain or dyspnea on exertion since his CABG. Further ROS below. Home BP 114-117/70s Intake Vital Signs 10/17/23 09:04 12/03/24 11:17 Height 5 ft 9 in 5 ft 9 in Weight: 250 lb BMI 36.9 BP 124/91 H Blood Pressure Location Rt brachial Position Sitting Respiration 18 Pulse 75 Pulse Source Monitor Pulse Oximetry (%) 93 Intake Visit Reasons: 1 Y FU Side Laster Staple Required: No Is patient in pain?: No Allergies adhesive (adhesives) Adverse Reaction (Intermediate, Verified 12/03/24 12:59) Rash Medications ???Medication ???Instructions ???Recorded ???Confirmed ???Type aspirin 81 mg chewable tablet 81 mg PO DAILY 06/25/21 12/03/24 H istory multivitamin 1 tab PO DAILY 03/09/23 12/03/24 H istory amlodipine 5 mg tablet 5 mg PO DAILY 10/17/23 12/03/24 Hi story carvedilol 25 mg tablet 25 mg PO .COMPLEX #180 tabs 12/03/24 Rx magnesium oxide 250 mg PO QDAY 08/23/24 12/03/24 H istory rosuvastatin 40 mg tablet 40 mg PO QDAY 08/23/24 12/03/24 Hi story carboxymethylcellulo se sodium 0.25 1 drp ophthalmic (eye) TID PRN 0 12/03/24 12/03/24 History % eye drops meloxicam 15 mg tablet 15 mg PO QDAY PRN 12/03/24 5 History Ejection fraction %: 55 Have you fallen in the past year?: No PFSH Medical History Urinary retention ELIZABETH (dyspnea on exertion) History of pulmonary embolus (PE) History of inferior wall myocardial infarction NSVT (nonsustained ventricular tachycardia) History of alcohol abuse Atherosclerosis of coronary artery of [place] heart without angina pectoris COVID-19 Hyperlipidemia Mucous cyst of digit of hand Hay fever Hemorrhoids Hypertension Surgical History S/P CABG x 5 (06/01/23) History of coronary artery stent placement ( 01/2009) Family History Mother CVA (cerebral vascular accident) Diabetes Social History Smoking Status: Former smoker how long ago did patient quit [id number] and again in 2014 alcohol intake: current Alcohol type: beer details: weekly substance use type: does not use ROS Const Const: Negative for fatigue, weakness, headache(s) or frequent falls Eyes Eyes: Negative for blurry vision ENT ENT: Negative for headache(s), dizziness or Nosebleed/epistaxis Cardio Chest Pain: No Palpitations: No Edema: None Muscle aches with walking: None Resp Respiratory: Negative for SOB with activity, SOB at rest or SOB orthopnea SOB lying down GI GI: N (more content not included)... Normal [place] LDL calc ser/plasOrdered By: Candelario Del Valle on 12-03-2024 Cholesterol in LDL [Mass/Vol] 38 mg/dL [place] Comment on above: Uudxtcxieb=350-551 m g/dL & Higher Mtmi=868 mg/dL or greaterFriedwald Equation for LDL-C Laboratory - Chemistry and C hemistry - challengeOrdered By: Candelario Del Valle on 12-03-2024 AST [Catalytic activity/Vol] 31 U/L <38 [place] Lipid Profileon 12-03-2024 CHOL:HDL 2.81 Normal [facility] Comment on above: Performed By: #### L 500.4100, L500.3400 #### [facility] [address] [place], [address] Cholesterol [Mass/Vol] 108 mg/dL Normal <=200 [facility] Comment on above: Result Comment: Chol esterol level, Desirable <200 mg/dL Borderline high cholesterol 200-239 mg/dL High cholesterol >=240 mg/dL Recommendations of the NCEP Adult Treatment Panel for the following risk-cutoff thresholds for the [place] population. Performed By: #### L 500.4100, L500.3400 #### [facility] [address] [place], [address] Cholesterol in HDL [Mass/Vol] 38 mg/dL Low [facility] Comment on above: Result Comment: Angelina onal Cholesterol Education Program (NCEP) guidelines: <40 mg/dL: Low HDL-cholesterol (major risk factor for CHD) >= 60 mg/dL: High HDL-cholesterol (negative risk factor for CHD) HDL-cholesterol is affected by a number of factors, e.g. smoking, exercise, hormones, sex and age. Performed By: #### L 500.4100, L500.3400 #### [facility] [address] [place], [address] Cholesterol in LDL [Mass/Vol] 38 mg/dL Normal [facility] Comment on above: Result Comment: Bord eorffd=058-161 mg/dL Higher Lsyw=687 mg/dL or greater Friedwald Equation for LDL-C Performed By: #### L 500.4100, L500.3400 #### [facility] [address] [place], [address] Cholesterol in VLDL [Mass/Vol] 32 mg/dL Normal 5-40 [facility] Comment on above: Performed By: #### L 500.4100, L500.3400 #### [facility] [address] [place], [address] Triglyceride [Mass/Vol] 160 mg/dL Normal [facility] Comment on above: Result Comment: The drugs N-Acetylcysteine and Metamizole may falsely depress this assay. Normal range: <150 mg/dL Borderline High: 150-199 mg/dL High: 200-499 mg/dL Very High: >500 mg/dL Performed By: #### L 500.4100, L500.3400 #### [facility] [address] [place], [address] Liver Profileon 12-03-2024 Albumin [Mass/Vol] 4.5 g/dL Normal 3.4-4.8 [facility] Comment on above: Performed By: #### L 500.4100, L500.3400 #### [facility] [address] [place], [address] ALK PHOS 88 U/L Normal 40-129 [facility] Comment on above: Performed By: #### L 500.4100, L500.3400 #### [facility] [address] [place], [address] ALT [Catalytic activity/Vol] 39 U/L Normal <=46 [facility] Comment on above: Performed By: #### L 500.4100, L500.3400 #### [facility] [address] [place], [address] AST [Catalytic activity/Vol] 31 U/L Normal <=37 [facility] Comment on above: Performed By: #### L 500.4100, L500.3400 #### [facility] [address] [place], [address] Bilirubin [Mass/Vol] 0.35 mg/dL Normal 0.00-1.30 [facility] Comment on above: Performed By: #### L 500.4100, [id number] #### [facility] [address] [place], [address] Bilirubin.direct [Mass/Vol] 0.18 mg/dL Normal 0.00-0.30 [facility] Comment on above: Performed By: #### L 500.4100, [id number] #### [facility] [address] [place], [place], [id number] Globulin (S) [Mass/Vol] 2.9 g/dL Normal 2.2-4.2 [facility] Comment on above: Performed By: #### L 500.4100, [id number] #### [facility] [address] [place], [address] T PROT 7.4 g/dL Normal 5.9-8.4 [facility] Comment on above: Performed By: #### L 500.4100, [id number] #### [facility] [address] [place], [address] Screening total cholesterol/ high density lipoprotein (HDL) cholesterol ratioOrdered By: Candelario Del Valle on 12-03-2024 Cholesterol.total/Cholest nolvia in HDL [Mass ratio] 2.81 {ratio} [place] Serum globulin measurementOr dered By: Candelario Del Valle on 12-03-2024 Globulin (S) [Mass/Vol] 2.9 g/dL 2.2-4.2 [facility] Serum or plasma alanine wong otransferase (ALT) measurementOrdered By: Candelario Del Valle on 12-03-2024 ALT [Catalytic activity/Vol] 39 U/L <47 [place] Serum or plasma albumin yaya urement (mass/volume)Ordered By: Candelario Del Valle on 12-03-2024 Albumin [Mass/Vol] 4.5 g/dL 3.4-4.8 [facility] Serum or plasma alkaline nannette sphatase measurementOrdered By: Candelario Del Valle on 12-03-2024 ALP [Catalytic activity/Vol] 88 U/L 40-129 [place] Serum or plasma cholesterol in HDL measurement (mass/volume)Ordered By: Candelario Del Valle on 12-03-2024 Cholesterol in HDL [Mass/Vol] 38 mg/dL Low >40 [place] Comment on above: National Cholesterol Education Program (NCEP) guidelines:<40 mg/dL: Low HDL-cholesterol (major risk factor for CHD)>= 60 mg/dL: High HDL-cholesterol (negative risk factor for CHD)HDL-cholesterol is affected by a number of factors, e.g. smoking, exercise, hormones, sex and age. Serum or plasma cholesterol measurement (mass/volume)Ordered By: Candelario Del Valle on 12-03-2024 Cholesterol [Mass/Vol] 108 mg/dL <201 [facility] Comment on above: Cholesterol level, D esirable <200 mg/dLBorderline high cholesterol 200-239 mg/dLHigh cholesterol >=240 mg/dLRecommendations of the NCEP Adult Treatment Panel for the following risk-cutoff thresholds for the [place] population. Total proteinOrdered By: Tyler Del Valle on 12-03-2024 Protein [Mass/Vol] 7.4 g/dL 5.9-8.4 [facility] Triglycerides measurementOrd ered By: Candelario Del Valle on 12-03-2024 Triglyceride [Mass/Vol] 160 mg/dL <199 [facility] Comment on above: The drugs N-Acetylcy steine and Metamizole may falsely depress this assay. Normal range: <150 mg/dLBorderline High: 150-199 mg/dLHigh: 200-499 mg/dLVery High: >500 mg/dL Urine Cultureon 11-12-2024 [facility] Staphylococcus epidermidis [place] Count 50,000-80,000 Staphylococcus epidermidis: REACTION cefOXitin Susc Islt Doxycycline Islt GERALDO 1 S Clindamycin.induced Susc Islt NEG Gentamicin Islt GERALDO <=0.5 S Linezolid Islt GERALDO 1 S Nitrofurantoin Islt GERALDO <=16 S Oxacillin Susc Islt >=4 R Tetracycline Islt GERALDO 2 S TMP SMX Islt GERALDO <=10 S Vancomycin Islt GERALDO 1 S Normal [place] Comment on above: Performed By: #### M 100.2985 #### [facility] [address] [place] [place], [address] 12 Lead EKGon 11-10-2024 12 Lead EKG [facility] [address] [place] [address] 12 Lead EKG 08/17/25 1632 MR#: [id number] Acct: [id number] Name: SYLVESTER LACY Rep #: [id number] : 1960 64 From: Meek Gaines MD Attending Dr: Status: DEP ER Ordering Dr: Maxim Medley DO Date: 11/10/24 Location: ED Sex: M C Admitted: Test Reason : DIZZINESS Blood Pressure : */* mmHG Vent. Rate : 71 BPM Atrial Rate : 71 BPM P-R Int : 174 ms QRS Dur : 88 ms QT Int : 400 ms P-R-T Axes : -15 -1 -67 degrees QTcB Int : 434 ms Normal sinus rhythm T wave abnormality, consider inferior ischemia Abnormal ECG Confirmed by MEEK GAINES MD ([id number]), medical editor GERTRUDIS CHAN ([id number]) on 11/12/2024 6:11:30 AM Referred By: ROMAN/SANTO Confirmed By: MEEK GAINES MD 11/12/24 0611 Date Meek Gaines MD CC: Dr. Maxim Medley DO; Signed Normal [place] Absolute lymphocyte countOrd ered By: Maxim Medley on 11-10-2024 Lymphocytes Auto (Unsp spec) [#/Vol] 1.55 10*3/uL 0.83-4.51 [place] Absolute neutrophil countOrd ered By: Maxim Medley on 11-10-2024 Neutrophils (Bld) [#/Vol] 3.1 10*3/uL 2.0-7.7 [place] Anion gap in Serum or Plasma Ordered By: Maxim Medley on 11-10-2024 Anion gap [Moles/Vol] 11 mmol/L - [facility] Automated lymphocyte count a s percentage of total leukocytesOrdered By: Maxim Medley on 11-10-2024 Lymphocytes/100 WBC Auto (Unsp spec) 28.5 % -41 [place] BUN/creatinine ratioOrdered By: Maxim Medley on 11-10-2024 Urea nitrogen/Creatinine [Mass ratio] 24.2 mg/mg High 10-20 [place] Basic Metabolic Profile (BMP )on 11-10-2024 BUN/CRE 24.2 RATIO High -20 [place] Comment on above: Performed By: #### L 500.2500, L100.0100 ####[place] [address] [place], [address] Calcium [Mass/Vol] 9.2 mg/dL Normal 7.6-11.0 [facility] Comment on above: Performed By: #### L 500.2500, L100.0100 ####[place] [address] [place], [address] Chloride [Moles/Vol] 105 mmol/L Normal 98-108 [facility] Comment on above: Performed By: #### L 500.2500, L100.0100 ####[place] [address] [place], [address] CO2 [Moles/Vol] 23.0 mmol/L Normal 21.0-32.0 [place] Comment on above: Performed By: #### L 500.2500, L100.0100 ####[place] [address] [place], [address] Creatinine [Mass/Vol] 0.82 mg/dL Normal 0.70-1.20 [facility] Comment on above: Performed By: #### L 500.2500, L100.0100 ####[place] [address] [place], [address] ECRCL 111.10 ml/min Normal 50-250 [place] Comment on above: Performed By: #### L 500.2500, L100.0100 ####[place] [address] [place], [address] GAP 11 Normal 5-15 [place] Comment on above: Performed By: #### L 500.2500, L100.0100 ####[place] [address] [place], [address] GFR/1.73 sq M.predicted among non-blacks MDRD (S/P/Bld) [Vol rate/Area] 97 mL/min/{1.73_m2} Normal >60 [facility] Comment on above: Result Comment: mL/m in/1.73m2 CKD-EPI Creatinine Equation (2020) Performed By: #### L 500.2500, L100.0100 ####[place] [address] [place], [address] Glucose [Mass/Vol] 181 mg/dL High 70-99 [facility] Comment on above: Performed By: #### L 500.2500, L100.0100 ####[place] [address] [place], [address] Potassium [Moles/Vol] 4.5 mmol/L Normal 3.3-5.1 [facility] Comment on above: Result Comment: Hemo lysis present, Results??could be affected. ?? Performed By: #### L 500.2500, L100.0100 ####[place] [address] [place], [address] Sodium [Moles/Vol] 139 mmol/L Normal 133-145 [facility] Comment on above: Performed By: #### L 500.2500, L100.0100 ####[place] [address] [place], [address] Urea nitrogen [Mass/Vol] 20 mg/dL High 4-19 [place] Comment on above: Performed By: #### L 500.2500, L100.0100 ####[place] [address] [place], [address] Basophil percentageOrdered B y: Maxim Medley on 11-10-2024 Basophils/100 WBC (Bld) 0.7 % 0-1 [facility] Bilirubin Test strip Ql (U)O rdered By: Maxim Medley on 11-10-2024 Bilirubin Ql (U) Negative Negative [place] CBC W/Diff, Automatedon 10-25 Absolute Lymph 1.55 X10 3/uL Normal 0.83-4.51 [place] Comment on above: Performed By: #### L 500.2500, L100.0100 ####[place] [address] [place], [address] Absolute Neut 3.1 X10 3/uL Normal 2.0-7.7 [place] Comment on above: Performed By: #### L 500.2500, L100.0100 ####[place] [address] [place], [address] Basophils/100 WBC (Bld) 0.7 % Normal 0-1 [facility] Comment on above: Performed By: #### L 500.2500, L100.0100 ####[place] [address] [place], [address] Eosinophils/100 WBC (Bld) 3.5 % Normal 0-5 [place] Comment on above: Performed By: #### L 500.2500, L100.0100 ####[place] [address] [place], [address] Erythrocyte distribution width (RBC) [Ratio] 13.2 % Normal 11.6-14.6 [place] Comment on above: Performed By: #### L 500.2500, L100.0100 ####[place] [address] [place], [address] Hematocrit (Bld) [Volume fraction] 41.0 % Normal 40-54 [place] Comment on above: Performed By: #### L 500.2500, L100.0100 ####[place] [address] [place], [address] Hemoglobin (Bld) [Mass/Vol] 13.5 g/dL Normal 13.0-16.5 [place] Comment on above: Performed By: #### L 500.2500, L100.0100 ####[place] [address] [place], [address] IG% 0.400 Normal 0.0-0.9 [place] Comment on above: Result Comment: IG% - Immature Granulocytes (promyelocytes, myelocytes and metamyelocytes) > 1% indicates that a LEFT SHIFT is Present. Performed By: #### L 500.2500, L100.0100 ####[place] [address] [place], [address] Lymphocytes/100 WBC (Bld) 28.5 % Normal 19-41 [facility] Comment on above: Performed By: #### L 500.2500, L100.0100 ####[place] [address] [place], [address] MCH (RBC) [Entitic mass] 29.2 pg Normal 27.0-32.0 [place] Comment on above: Performed By: #### L 500.2500, L100.0100 ####[place] [address] [place], [address] MCHC (RBC) [Mass/Vol] 32.9 g/dL Normal 32-36 [facility] Comment on above: Performed By: #### L 500.2500, L100.0100 ####[place] [address] [place], [address] MCV (RBC) [Entitic vol] 88.7 fL Normal 80-94 [facility] Comment on above: Performed By: #### L 500.2500, L100.0100 ####[place] [address] [place], [address] Monocytes/100 WBC (Bld) 10.5 % High 0-10 [facility] Comment on above: Performed By: #### L 500.2500, L100.0100 ####[place] [address] [place], [address] Neutrophils/100 WBC (Bld) 56.4 % Normal 47-70 [facility] Comment on above: Performed By: #### L 500.2500, L100.0100 ####[place] [address] [place], [address] Nucleated RBC (Bld) [#/Vol] 0 10*3/uL Normal 0-5 [place] Comment on above: Performed By: #### L 500.2500, L100.0100 ####[place] [address] [place], [address] Platelet mean volume (Bld) [Entitic vol] 9.1 fL Normal 6.2-12.0 [place] Comment on above: Performed By: #### L 500.2500, L100.0100 ####[place] [address] [place], [address] Platelets (Bld) [#/Vol] 198 10*3/uL Normal 150-450 [place] Comment on above: Performed By: #### L 500.2500, L100.0100 ####[place] [address] [place], [address] RBC (Bld) [#/Vol] 4.62 10*6/uL Normal 4.6-6.2 [facility] Comment on above: Performed By: #### L 500.2500, L100.0100 ####[place] [address] [place], [address] RDW SD 42.6 fl Normal 35.1-43.9 [place] Comment on above: Performed By: #### L 500.2500, L100.0100 ####[place] [address] [place], [address] WBC (Bld) [#/Vol] 5.4 10*3/uL Normal 4.4-11.0 [facility] Comment on above: Performed By: #### L 500.2500, L100.0100 ####[place] [address] [place], [address] Carbon dioxide, total [Moles /volume] in Central venous bloodOrdered By: Maxim Medley on 11-10-2024 CO2 [Moles/Vol] 23.0 mmol/L 21.0-32.0 [place] Chloride assayOrdered By: Cy Medley on 11-10-2024 Chloride [Moles/Vol] 105 mmol/L 98-108 [facility] Emergency Department Summary on 11-10-2024 Emergency Department Summary [facility] Medical Records Department [address] [place] [address] Emergency Department Summary 11/10/24 MR#: [id number] Acct: [id number] Name: FRANCIS LACYDRICK VERNON Rep #: [id number] : 1960 64 From: Maxim Silva PCP: Status:DEP ER Location: ED ADDENDUM by Dr. Sandy Umana DO on 11/12/24 at 1502 Urine culture grew 50,000 -80,000 CFU per mL of Staphylococcus epidermidis with resistance to oxacillin. Patient self caths so will be treated. To start on Macrobid which is e-prescribed. Will be contacted by nursing staff. 11/12/24 1502 Cosigner Signature (if applicable): cc: * Signed HPI History of Present Illness Chief Complaint: Dizziness Informant: patient Narrative Narrative: Presenting with lightheaded symptoms today worse when getting up. He has been out working the yard last couple days. Today only had a green tea. No chest pains no shortness of breath. No syncopal episodes. 5 vessel CABG last year in [place]. He states very minimal cough. Denies any heart failure with his bypass surgery. Denies any black or bloody stools.Denies dizzy spinning sensations. Reports has been self cathing for over a year as he has prostate issues. No fever or chills. Prior similar symptoms: Yes PFSH PFSH Medical History Urinary retention ELIZABETH (dyspnea on exertion) History of pulmonary embolus (PE) History of inferior wall myocardial infarction NSVT (nonsustained ventricular tachycardia) History of alcohol abuse Atherosclerosis of coronary artery of [place] heart without angina pectoris COVID-19 Hyperlipidemia Mucous cyst of digit of hand Hay fever Hemorrhoids Hypertension Home Medications ???Medication ???Instructions ???Recorded ???Last Taken ???Type aspirin 81 mg chewable tablet 81 mg PO DAILY 06/25/21 05/19/23 H istory multivitamin 1 tab PO DAILY 03/09/23 Unknown Hi story amlodipine 5 mg tablet 5 mg PO DAILY 10/17/23 Unknown His tory tamsulosin 0.4 mg capsule (Flomax) 0.8 mg PO QHS 10/17/23 Unknown H istory carvedilol 25 mg tablet 25 mg PO .COMPLEX #180 tabs Unknown Rx carboxymethylcellulo se sodium 0.25 1 drp ophthalmic (eye) TID 08/23 Unknown History % eye drops magnesium oxide 250 mg PO QDAY 08/23/24 Unknown Hi story meloxicam 15 mg tablet 15 mg PO QDAY 08/23/24 Unknown His tory rosuvastatin 40 mg tablet 40 mg PO QDAY 08/23/24 Unknown His tory Allergy/AdvReac Type Severity Reaction Status Date / Time adhesive (adhesives) AdvReac Intermediate Rash Verified 11/10/24 16:26 Family History Mother CVA (cerebral vascular accident) Diabetes Surgical History S/P CABG x 5 (06/01/23) History of coronary artery stent placement ( 01/2009) Social History Smoking Status: Former smoker how long ago did patient quit smokin8230-1997 and again in 2015 alcohol intake: current Alcohol type: beer details: weekly substance use type: does not use ROS ROS ED Constitutional Constitutional ED: Denies chills, fever(s) or sweats ENT ENT ED: Denies sore throat Cardiovascular Cardiovascular: Reports other Details: Lightheaded ; Denies chest pain, leg edema, palpitations or racing heartbeat Respiratory/Chest Respiratory/Chest: Denies cough, dyspnea or dyspnea on exertion Gastrointestinal Gastrointestinal: Denies abdominal pain, diarrhea, nausea or vomiting Genitourinary Genitourinary ED: Denies dysuria, hematuria or urinary frequency Musculoskeletal Musculoskeletal: Denies back pain, extremity pain or neck pain Integumentary Denies rash or wounds Neurologic Neurologic: Denies headache(s), paresthesias or weakness EXAM Physical Exam Const Vital Signs: 11/10/24 16:26 11/10/24 18:42 11/10/24 19:16 Temperature 97.3 F L 97.3 F L Temperature Source Temporal Pulse Rate 76 67 67 Respiratory Rate 14 15 15 Blood Pressure 129/88 H 119/80 119/80 Blood Pressure Mean 101 93 93 Pulse Ox 98 97 97 Oxygen Delivery Method Room Air Room Air Positive well nourished and well developed General Appearance ED: well developed and NAD HEENT HEENT Narrative: Mild dry mucosal membranes. normocephalic and atraumatic Eyes General Eye ED: Yes normal appearance of both eyes; Negative for pale conjunctiva Neck full ROM Chest Wall Chest Narrative: Healed midline chest scar. Chest: Negative for tenderness Resp normal respiratory effort and normal air movement Effort and Inspection: symmetric chest movement; Negative for respiratory distress Cardio regular rate, regular rhythm and no murmurs Peripheral Pulses: pulses (more content not included)... Normal [place] Eosinophil percentageOrdered By: Maxim Medley on 11-10-2024 Eosinophils/100 WBC (Bld) 3.5 % 0-5 [place] Erythrocyte distribution wid th ratioOrdered By: Maxim Medley on 11-10-2024 Erythrocyte distribution width (RBC) [Ratio] 13.2 % 11.6-14.6 [place] Erythrocyte distribution wid th standard deviationOrdered By: Maxim Medley on 11-10-2024 Erythrocyte distribution width (RBC) [Ratio] 42.6 fl 35.1-43.9 [place] Glomerular filtration rate ( GFR) estimation/1.73 sq m using serum, plasma, or whole bOrdered By: Maxim Medley on 11-10-2024 GFR/1.73 sq M.predicted among non-blacks MDRD (S/P/Bld) [Vol rate/Area] 97 mL/min/{1.73_m2} >60 [facility] Comment on above: mL/min/1.73m2 CKD-EP I Creatinine Equation (2020) Hematocrit Auto (Bld) [Volum e fraction]Ordered By: Maxim Medley on 11-10-2024 Hematocrit (Bld) [Volume fraction] 41.0 % 40-54 [place] Hemoglobin measurementOrdere d By: Maxim Medley on 11-10-2024 Hemoglobin (Bld) [Mass/Vol] 13.5 g/dL 13.0-16.5 [place] Immature granulocytes/100 WB C Auto (Bld)Ordered By: Maxim Medley on 11-10-2024 Immature granulocytes/100 WBC (Bld) 0.400 % 0.0-0.9 [place] Comment on above: IG% - Immature Granu locytes (promyelocytes, myelocytes and metamyelocytes) > 1% indicates that a LEFT SHIFT is Present. Ketones Test strip Ql (U)Ord ered By: Maxim Medley on 11-10-2024 Ketones Ql (U) Negative Negative [place] MCV (mean corpuscular volume ) determinationOrdered By: Maxim Medley on 11-10-2024 MCV (RBC) [Entitic vol] 88.7 fL 80-94 [facility] Mean corpuscular hemoglobin (MCH) determinationOrdered By: Maxim Medley on 11-10-2024 MCH (RBC) [Entitic mass] 29.2 pg 27.0-32.0 [place] Mean corpuscular hemoglobin concentration (MCHC) determinationOrdered By: Maxim Medley on 11-10-2024 MCHC (RBC) [Mass/Vol] 32.9 g/dL 32-36 [facility] Mean platelet volume determi nationOrdered By: Maxim Medley on 11-10-2024 Platelet mean volume (Bld) [Entitic vol] 9.1 fL 6.2-12.0 [place] Microscopic analysis of urin e for red blood cells (RBC)Ordered By: Maxim Medley on 11-10-2024 Microscopic analysis of urine for red blood cells (RBC) 0-5 SEEN /hpf 0-5 [place] Monocyte percentageOrdered B y: Maxim Medley on 11-10-2024 Monocytes/100 WBC (Bld) 10.5 % High 0-10 [facility] Mucus LM Ql (Urine sed)Order ed By: Maxim Medley on 11-10-2024 Mucus Ql (Urine sed) 2+ /hpf [facility] Neutrophil percentageOrdered By: Maxim Medley on 11-10-2024 Neutrophils/100 WBC (Bld) 56.4 % 47-70 [place] Nitrite Test strip Ql (U)Ord ered By: Maxim Medley on 11-10-2024 Nitrite Ql (U) Negative Negative [place] Nucleated red blood cell per centageOrdered By: Maxim Medley on 11-10-2024 Nucleated RBC/100 WBC (Bld) [Ratio] 0 % 0-5 [place] Platelet countOrdered By: Cy Medley on 11-10-2024 Platelets (Bld) [#/Vol] 198 10*3/uL 150-450 [place] Potassium measurement (mass/ volume)Ordered By: Maxim Medley on 11-10-2024 Potassium (Unsp spec) [Mass/Vol] 4.5 mmol/L 3.3-5.1 [place] Comment on above: Hemolysis present, R esults could be affected. Protein Test strip Ql (U)Ord ered By: Maxim Medley on 11-10-2024 Protein Ql (U) 30 mg/dl High Negative [place] RBC Auto (Bld) [#/Vol]Ordere d By: Maxim Medley on 11-10-2024 RBC (Bld) [#/Vol] 4.62 10*6/uL 4.6-6.2 [facility] Serum creatinine measurement (mass/volume)Ordered By: Maxim Medley on 11-10-2024 Creatinine [Mass/Vol] 0.82 mg/dL 0.70-1.20 [facility] Serum glucose measurement (m ass/volume)Ordered By: Maxim Medley on 11-10-2024 Glucose [Mass/Vol] 181 mg/dL High 70-99 [facility] Serum or plasma calcium yaya urement (mass/volume)Ordered By: Maxim Medley on 11-10-2024 Calcium [Mass/Vol] 9.2 mg/dL 7.6-11.0 [facility] Serum or plasma urea nitroge n measurement (mass/volume)Ordered By: Maxim Medley on 11-10-2024 Urea nitrogen [Mass/Vol] 20 mg/dL High 4-19 [place] Sodium levelOrdered By: Maxim Medley on 11-10-2024 Sodium [Moles/Vol] 139 mmol/L 133-145 [facility] Squamous epithelial cells de tection in urine sediment by light microscopyOrdered By: Maxim Medley on 11-10-2024 Epithelial cells.squamous LM Ql (Urine sed) 0-5 SEEN /hpf 0-5 [place] Urinalysis, Completeon 11-10 BACTERIA 3+ /hpf Normal None Seen [place] Comment on above: Order Comment: CLEAN CATCH Performed By: #### L 400.0001 ####[place] [address] [facility] [address] CAST,COARSE GR 0-5 SEEN Normal 0-5 /lpf [place] Comment on above: Order Comment: CLEAN CATCH Performed By: #### L 400.0001 ####[place] [address] [place], [address] EPI,SQUAMOUS 0-5 SEEN Normal 0-5 [place] Comment on above: Order Comment: CLEAN CATCH Performed By: #### L 400.0001 ####[place] [address] [place], [address] Mucus Ql (Urine sed) 2+ /hpf Normal [facility] Comment on above: Order Comment: CLEAN CATCH Performed By: #### L 400.0001 ####[place] [address] [place], [address] RBC 0-5 SEEN Normal 0-5 [place] Comment on above: Order Comment: CLEAN CATCH Performed By: #### L 400.0001 ####[place] [address] [place], [address] WBC 5-10 SEEN Normal 0-5 [place] Comment on above: Order Comment: CLEAN CATCH Performed By: #### L 400.0001 ####[place] [address] [place], [address] Urine clarityOrdered By: Alberto Medley on 11-10-2024 Clarity (U) Clear Clear [place] Urine coarse granular cast d etectionOrdered By: Maxim Medley on 11-10-2024 Coarse Granular Casts LM Ql (Urine sed) 0-5 SEEN /lpf 0-5 /lpf [place] Urine color determinationOrd ered By: Maxim Medley on 11-10-2024 Color (U) Yellow Yellow [place] Urine cultureOrdered By: Alberto Medley on 11-10-2024 Bacteria identified Cx Nom (U) Staphylococcus epidermidis Abnormal [place] Urine glucose detectionOrder ed By: Maxim Medley on 11-10-2024 Glucose Ql (U) Normal mg/dl Normal [place] Urine leukocyte esterase det ection by dipstickOrdered By: Maxim Medley on 11-10-2024 Leukocyte esterase Test strip Ql (U) 25 /ul High Negative [place] Urine pHOrdered By: Maxim Medley on 11-10-2024 pH (U) 6.0 [pH] 5.0 - 8.0 [place] Urine sediment bacteria coun t by microscopy (number/high power field)Ordered By: Maxim Medley on 11-10-2024 Bacteria LM.HPF (Urine sed) [#/Area] 3 /[HPF] None Seen [place] Urine specific gravity measu rementOrdered By: Maxim Medley on 11-10-2024 Specific gravity (U) [Rel density] 1.030 1.002-1.030 [place] Urine urobilinogen measureme ntOrdered By: Maxim Medley on 11-10-2024 Urobilinogen Ql (U) 1 mg/dl High Normal [facility] White blood cell (WBC) count Ordered By: Maxim Medley on 11-10-2024 WBC (Bld) [#/Vol] 5.4 10*3/uL 4.4-11.0 [facility] White blood cell countOrdere d By: Maxim Medley on 11-10-2024 White blood cell count 5-10 SEEN /hpf 0-5 [facility] Cardiology Visit Reporton Cardiology Visit Report [facility] [address] [place] [address] OFFICE VISIT Date of Service: 08/23/24 MR#: [id number] Acct: [id number] Name: SYLVESTER LACY Rep #: [id number] : 1960 Provider: MIESHA Blackwood Age/Sex: 63/M Location: [facility] Status: Signed HPI HPI History of Present Illness Details: Sylvester Lacy is a 63 year old male with a hx of coronary artery disease with RCA and PDA in 2008. He also has a history of hypertension. In 2008 he had angioplasty and stenting done of the RCA system at a hospital in [place]. At that time he was noted to have severe disease in his LAD and moderate disease in his circumflex. Patient had a stress test at the in December 2022 which demonstrated no reversible [...] fraction was preserved. He was transferred to [facility] where he underwent coronary bypass [...] Source NIBP Intake Visit Reasons: 6 M FU Side Laster Staple Required: No Is patient in pain?: No [...] alcohol abuse Atherosclerosis of coronary artery of [place] heart without angina pectoris COVID-19 Hyperlipidemia Mucous cyst of digit of hand Hay fever Hemorrhoids Hypertension Surgical History S/P CABG x 5 (06/01/23) History of coronary artery stent placement ( 01/2009) Family History Mother CVA (cerebral vascular accident) Diabetes Social History Smoking Status: Former smoker how long ago did patient quit [id number] and again in 2014 alcohol intake: current Alcohol type: beer details: weekly substance use type: does not use ROS Const Const: Positive for fatigue (Relates to weight gain after senior care); Negative for weakness Eyes Eyes: Negative for change in vision ENT ENT: Negative for dizziness or balance problems Cardio Chest Pain: No Palpitations: No Edema: Bilateral (Unchanged) Resp Respiratory: Positive for SOB with activity (Occasio (more content not included)... Normal [place] 12 Lead EKGon 03-07-2024 12 Lead EKG [facility] Cardiovascular Services [address] [place] [address] 12 Lead EKG 03/07/24 1000 MR#: [id number] Acct: [id number] Name: SYLVESTER LACY Rep #: [id number] : 1960 63 From: Eliud Arzate MD [...] Abnormal ECG Confirmed by LINCOLN WEIR, CURT ([id number]), medical editor GERTRUDIS CHAN ([id number]) on 03/13/2024 1:23:38 PM Referred By: Confirmed By: CURT ARZATE MD 03/13/24 1863 Date Eliud Arzate MD CC: Dr. Daniel Coffey DO; Signed Normal [place] BNP,B-Type NATRIURETIC PEPTI Radhames 03-07-2024 Natriuretic peptide B (Bld) [Mass/Vol] 196.0 pg/mL High 0-100 [place] Comment on above: Performed By: #### L 501.5425, L500.2500, L503.6620, L100.0500 #### [facility] [address] [place], [address] Basic Metabolic Profile (BMP )on 03-07-2024 BUN/CRE 21.4 RATIO High 10-20 [place] Comment on above: Order Comment: 1 Y Performed By: #### L 501.5425, L500.2500, L503.6620, L100.0500 #### [facility] [address] [place], [address] CA,Total 9.1 mg/dL Normal 8.5-10.1 [place] Comment on above: Order Comment: 1 Y Performed By: #### L 501.5425, L500.2500, L503.6620, L100.0500 #### [facility] [address] [place], [address] Chloride [Moles/Vol] 103 mmol/L Normal 98-107 [facility] Comment on above: Order Comment: 1 Y Performed By: #### L 501.5425, L500.2500, L503.6620, L100.0500 #### [facility] [address] [place], [address] CO2 [Moles/Vol] 29.0 mmol/L Normal 21.0-32.0 [place] Comment on above: Order Comment: 1 Y Performed By: #### L 501.5425, L500.2500, L503.6620, L100.0500 #### [facility] [address] [place], [address] Creatinine [Mass/Vol] 0.84 mg/dL Normal 0.70-1.30 [facility] Comment on above: Order Comment: 1 Y Result Comment: The validity of the calculated GFR GFRAA in patients over 70 years has not been determined. Clinical correlation is essential. Performed By: #### L 501.5425, L500.2500, L503.6620, L100.0500 #### [facility] [address] [place], [address] ECRCL 102.94 ml/min Normal [place] Comment on above: Order Comment: 1 Y Performed By: #### L 501.5425, L500.2500, L503.6620, L100.0500 #### [facility] [address] [place], [address] EST GFR - AA 118 mL/min Normal >60 [place] Comment on above: Order Comment: 1 Y Result Comment: Afri can Turkish GFR Calc Performed By: #### L 501.5425, L500.2500, L503.6620, L100.0500 #### [facility] [address] [place], [address] GAP 4 Low 5-15 [place] Comment on above: Order Comment: 1 Y Performed By: #### L 501.5425, L500.2500, L503.6620, L100.0500 #### [facility] [address] [place], [address] GFR/1.73 sq M.predicted among non-blacks MDRD (S/P/Bld) [Vol rate/Area] 97 mL/min/{1.73_m2} Normal >60 [facility] Comment on above: Order Comment: 1 Y Result Comment: Non- GFR Calc Performed By: #### L 501.5425, L500.2500, L503.6620, L100.0500 #### [facility] [address] [place], [address] Glucose [Mass/Vol] 98 mg/dL Normal 74-106 [facility] Comment on above: Order Comment: 1 Y Performed By: #### L 501.5425, L500.2500, L503.6620, L100.0500 #### [facility] [address] [place], [address] Potassium [Moles/Vol] 4.7 mmol/L Normal 3.5-5.1 [facility] Comment on above: Order Comment: 1 Y Performed By: #### L 501.5425, L500.2500, L503.6620, L100.0500 #### [facility] [address] [place], [address] Sodium [Moles/Vol] 136 mmol/L Normal 136-145 [facility] Comment on above: Order Comment: 1 Y Performed By: #### L 501.5425, L500.2500, L503.6620, L100.0500 #### [facility] [address] [place], [address] Urea nitrogen [Mass/Vol] 18 mg/dL Normal 7-18 [place] Comment on above: Order Comment: 1 Y Performed By: #### L 501.5425, L500.2500, L503.6620, L100.0500 #### [facility] [address] [place], [address] CBC-Complete Blood Cnt No Di ffon 03-07-2024 Erythrocyte distribution width (RBC) [Ratio] 13.0 % Normal 11.6-14.6 [place] Comment on above: Performed By: #### L 501.5425, L500.2500, L503.6620, L100.0500 #### [facility] [address] [place], [address] Hematocrit (Bld) [Volume fraction] 42.0 % Normal 40-54 [place] Comment on above: Performed By: #### L 501.5425, L500.2500, L503.6620, L100.0500 #### [facility] [address] [place], [address] Hemoglobin (Bld) [Mass/Vol] 13.4 g/dL Normal 13.0-16.5 [place] Comment on above: Performed By: #### L 501.5425, L500.2500, L503.6620, L100.0500 #### [facility] [address] [place], [address] MCH (RBC) [Entitic mass] 28.5 pg Normal 27.0-32.0 [place] Comment on above: Performed By: #### L 501.5425, L500.2500, L503.6620, L100.0500 #### [facility] [address] [place], [address] MCHC (RBC) [Mass/Vol] 31.9 g/dL Low 32-36 [facility] Comment on above: Performed By: #### L 501.5425, L500.2500, L503.6620, L100.0500 #### [facility] [address] [place], [address] MCV (RBC) [Entitic vol] 89.4 fL Normal 80-94 [facility] Comment on above: Performed By: #### L 501.5425, L500.2500, L503.6620, L100.0500 #### [facility] [address] [place], [address] Platelet mean volume (Bld) [Entitic vol] 9.3 fL Normal 6.2-12.0 [place] Comment on above: Performed By: #### L 501.5425, L500.2500, L503.6620, L100.0500 #### [facility] [address] [place], [address] Platelets (Bld) [#/Vol] 213 10*3/uL Normal 150-450 [place] Comment on above: Performed By: #### L 501.5425, L500.2500, L503.6620, L100.0500 #### [facility] [address] [place], [address] RBC (Bld) [#/Vol] 4.70 10*6/uL Normal 4.6-6.2 [facility] Comment on above: Performed By: #### L 501.5425, L500.2500, L503.6620, L100.0500 #### [facility] [address] [place], [address] RDW SD 41.9 fl Normal 35.1-43.9 [place] Comment on above: Performed By: #### L 501.5425, L500.2500, L503.6620, L100.0500 #### [facility] [address] [place], [address] WBC (Bld) [#/Vol] 6.2 10*3/uL Normal 4.4-11.0 [facility] Comment on above: Performed By: #### L 501.5425, L500.2500, L503.6620, L100.0500 #### [facility] [address] [place], [address] CTA Head AND Neck W/ Contras ton 03-07-2024 CTA Head AND Neck W/ Contrast [facility] Imaging Services [address] [place] [address] CTA Head AND Neck W/ Contrast MR#: [id number] Acct: [id number] Name: SYLVESTER LACY Rep #: [id number] : 1960 M 63 From: Dominique Pollard MD PCP: Status: [facility] ER Study: CTA Head AND Neck W/ Contrast Date of Exam: Exam# [id number] Ordering Dr: Daniel Coffey DO [id number] INDICATION: dizziness, elevated BP EXAMINATION: CT BRAIN WITHOUT CONTRAST, CTA HEAD, AND CTA NECK TECHNIQUE: Noncontrast axial images were obtained of the brain. Subsequently, routine carotid CT angiogram protocol was performed without and with IV contrast. In addition, images were obtained of the [place]. NASCET criteria using the distal [...] segments. --Posterior circulation: PCOMs: Within normal limits district sales representative: No significant stenosis at the visualized segments. BASILAR ARTERY: No significant stenosis. VERTEBRAL ARTERIES: No significant stenosis at the intradural/visualize d segments. No evidence of intracranial aneurysm or vascular malformation. CT/CTA Head AND Neck W/ Contrast IMPRESSION: Atherosclerosis with no associated significant stenosis or occlusion. Electronically Signed: Dominique Pollard MD at 11:56 EST , CC: Dr. Daniel Coffey DO; Bioinformatics Support Specialist: Signed Normal [place] Chest 1 View (Portable)on Chest 1 View (Portable) [facility] Imaging Services [address] [facility] [place], [place] [address] Chest 1 View (Portable) MR#: [id number] Acct: [id number] Name: SYLVESTER LACY Rep #: [id number] : 1960 M 63 From: Dominique Pollard MD PCP: Status: REG ER Study: Chest 1 View (Portable) Date of Exam: 03/07/24 Exam# [id number] Ordering Dr: Daniel Coffey DO [id number] INDICATION: Shortness of breath EXAMINATION/TECHNIQU E: X-RAY [...] EST , CC: Dr. Daniel Coffey DO; Bioinformatics Support Specialist: Signed Normal [place] Emergency Department Summary on 03-07-2024 Emergency Department Summary [facility] Medical Records Department [address] [place] [address] Emergency Department Summary 03/07/24 MR#: [id number] Acct: [id number] Name: SYLVESTER LACY Rep #: [id number] : 1960 63 From: Daniel Coffey DO PCP: Status:DEP ER Location: ED HPI History of Present Illness Chief Complaint: Dizziness PFSH PFSH Medical History Urinary retention ELIZABETH (dyspnea on exertion) History of pulmonary embolus (PE) History of inferior wall myocardial infarction NSVT (nonsustained ventricular tachycardia) History of alcohol abuse Atherosclerosis of coronary artery of [place] heart without angina pectoris COVID-19 Hyperlipidemia Mucous [...] smoker how long ago did patient quit [id number] and again in 2014 alcohol intake: current [...] DECISION DASH (more content not included)... Normal [place] L501.4020on 03-07-2024 TROPONIN-I HS 5 pg/mL Normal 3.0-78.0 [place] Comment on above: Result Comment: Plea se Note: New Test Units and Gender Specific Reference Ranges. For more information see Policy Stat Procedure [place] High Sensitivity Troponin (TNIH) and attachments. Performed By: #### L 501.4020 ####[place] [address] [place], [address] L501.5425on 03-07-2024 TROPONIN-I HS 4 pg/mL Normal 3.0-78.0 [place] Comment on above: Order Comment: 1 Y Result Comment: Plea se Note: New Test Units and Gender Specific Reference Ranges. For more information see Policy Stat Procedure [place] High Sensitivity Troponin (TNIH) and attachments. Performed By: #### L 501.5425, L500.2500, L503.6620, L100.0500 #### [facility] [address] [place], [address] Urinalysis, Completeon 03-07 BACTERIA RARE Normal None Seen [place] Comment on above: Order Comment: OSMANY TER SPECIMEN Performed By: #### L 400.0001 #### [facility] [address] [place], [address] EPI,SQUAMOUS 0-5 SEEN Normal 0-5 [place] Comment on above: Order Comment: OSMANY TER SPECIMEN Performed By: #### L 400.0001 #### [facility] [address] [place], [address] RBC 0-5 SEEN Normal 0-5 [place] Comment on above: Order Comment: OSMANY TER SPECIMEN Performed By: #### L 400.0001 #### [facility] [address] [place], [address] WBC >100 SEEN Normal 0-5 [place] Comment on above: Order Comment: OSMANY TER SPECIMEN Performed By: #### L 400.0001 #### [facility] [address] [place], [address] Mucus Ql (Urine sed) 0 SEEN Normal [facility] Comment on above: Order Comment: OSMANY TER SPECIMEN Performed By: #### L 400.0001 #### [facility] [address] [place], [address] Absolute lymphocyte countOrd ered By: Michelle Daveis on 07-24-2023 Lymphocytes Auto (Unsp spec) [#/Vol] 1.63 10*3/uL 0.83-4.51 [place] Automated lymphocyte count a s percentage of total leukocytesOrdered By: Michelle Davies on 07-24-2023 Lymphocytes/100 WBC Auto (Unsp spec) 22.4 % 19-41 [place] Basophil percentageOrdered B y: Michelle Davies on 07-24-2023 Basophils/100 WBC (Bld) 1.0 % 0-1 [facility] Chloride [Moles/Vol] 107 mmol/L 98-107 [facility] Eosinophils/100 WBC (Bld) 3.4 % 0-5 [place] Glucose [Mass/Vol] 93 mg/dL 74-106 [facility] Hemoglobin (Bld) [Mass/Vol] 12.4 g/dL 13.0-16.5 [place] Monocytes/100 WBC (Bld) 8.8 % 0-10 [facility] Neutrophils (Bld) [#/Vol] 4.7 10*3/uL 2.0-7.7 [place] Neutrophils/100 WBC (Bld) 64.1 % 47-70 [place] Potassium [Moles/Vol] 4.5 mmol/L 3.5-5.1 [facility] Sodium [Moles/Vol] 141 mmol/L 136-145 [facility] WBC (Bld) [#/Vol] 7.3 10*3/uL 4.4-11.0 [facility] Determination of erythrocyte mean corpuscular volume (MCV)Ordered By: Michelle Davies on 07-24-2023 MCV (RBC) [Entitic vol] 89.7 fL 80-94 [facility] Erythrocyte distribution wid th ratioOrdered By: Michelle Davies on 07-24-2023 Erythrocyte distribution width (RBC) [Ratio] 14.2 % 11.6-14.6 [place] Erythrocyte distribution wid th standard deviationOrdered By: Michelle Davies on 07-24-2023 Erythrocyte distribution width (RBC) [Entitic vol] 46.8 fL 35.1-43.9 [facility] Hematocrit Auto (Bld) [Volum e fraction]Ordered By: Michelle Davies on 07-24-2023 Hematocrit (Bld) [Volume fraction] 39.4 % 40-54 [place] Immature granulocytes/100 WB C Auto (Bld)Ordered By: Michelle Davies on 07-24-2023 Immature granulocytes/100 WBC (Bld) 0.300 % 0.0-0.9 [place] Comment on above: IG% - Immature Granu locytes (promyelocytes, myelocytes and metamyelocytes) > 1% indicates that a LEFT SHIFT is Present. Laboratory - Chemistry and C hemistry - challengeOrdered By: Michelle Davies on 07-24-2023 CO2 [Moles/Vol] 29.0 mmol/L 21.0-32.0 [place] Magnesium [Mass/Vol] 2.2 mg/dL 1.6-2.6 [facility] Urea nitrogen/Creatinine [Mass ratio] 23.2 mg/mg 10-20 [facility] - Hematology and Cell countsOrdered By: Michelle Davies on 07-24-2023 MCH (RBC) [Entitic mass] 28.2 pg 27.0-32.0 [place] MCHC (RBC) [Mass/Vol] 31.5 g/dL 32-36 [facility] Nucleated RBC/100 WBC (Bld) [Ratio] 0 % 0-5 [place] Platelet mean volume (Bld) [Entitic vol] 8.8 fL 6.2-12.0 [place] Platelets (Bld) [#/Vol] 213 10*3/uL 150-450 [place] No Panel InformationOrdered By: Michelle Davies on 07-24-2023 Estimated GFR (MDRD) Amer 115 mL/min >60 [place] Comment on above: GFR Calc Estimated GFR (MDRD) Non-Af Amer 95 mL/min >60 [place] Comment on above: Non- GFR Calc RBC Auto (Bld) [#/Vol]Ordere d By: Michelle Davies on 07-24-2023 RBC (Bld) [#/Vol] 4.39 10*6/uL 4.6-6.2 [facility] Serum or plasma calcium yaya urement (mass/volume)Ordered By: Michelle Davies on 07-24-2023 Calcium [Mass/Vol] 9.3 mg/dL 8.5-10.1 [facility] Serum or plasma creatinine m easurement (mass/volume)Ordered By: Michelle Davies on 07-24-2023 Creatinine [Mass/Vol] 0.86 mg/dL 0.70-1.30 [facility] Comment on above: The validity of the calculated GFR & GFRAA in patients over 70 years has not been determined. Clinical correlation is essential. Serum or plasma thyroid stim ulating hormone (TSH) measurement (units/volume)Ordered By: Michelle Davies on 07-24-2023 TSH Qn 1.75 uIU/mL 0.358-3.74 [place] Serum or plasma urea nitroge n measurement (mass/volume)Ordered By: Michelle Davies on 07-24-2023 Urea nitrogen [Mass/Vol] 20 mg/dL 7-18 [place] Thin prep Papanicolaou smear with manual screeningOrdered By: Michelle Davies on 07-24-2023 Thin prep Papanicolaou smear with manual screening 5 5-15 [place] Office Visiton 07-20-2023 Follow-up visit [id number] Sylvester Lacy 1960 M Date Provider Department Center 07/20/2023 [id number]-GGAVWHDARION LOPES SH [facility] CT None Family History Problem Relation Age of Onset Diabetes Mother Family Status - Relation Status Age at Mother Level of Service:57544 PA POSTOP FOLLOW UP VISIT RELATED TO ORIGINAL PX Reason for Visit and Comments: Post-op [483] Normal [facility] PATINSon 07-20-2023 PATINS Weight restriction measures 5-8 weeks from date of surgery- 20lbs weight restriction approximate end date: 07/26/23 Normal [facility] Progress Noteon 07-20-2023 Progress Note [facility]: CT SURGEONS [place] [address] [facility] [address] Dept: [phone] Dept Loc: [phone] Visit type: Established patient - in person [...] Patient has follow up with Cards - [place] Finish 10 day course of Abx - [...] [facility] Subjective HPI: 62 y.o. 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 Pmhx including RCA and [...] note patient lives alone at home. 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 Patient underwent surgery on 06/01/23. Patient did well post-op, only complication was urinary retention for which a isaac was re-placed and Urology consulted. A referral was placed to Urology in [place] for him to follow up with. He [...] to urinary retention July 14 through the [place]. Patient would like to establish with Dr. Gaines at [place] will forward appropriate documents to his office [...] will follow-up as needed 07/11/23: Seen by Cards-[place] - started on Abx due to ?sternal [...] Stressed the imp (more content not included)... [facility] Anaerobic cultureOrdered By: Michelle Davies on 07-17-2023 Bacteria identified Anaer cx Nom (Unsp spec) No anaerobic bacteria isolated. [place] Bacteria identified Cx Nom ( Wound)Ordered By: Michelle Davies on 07-17-2023 Wound Culture Staphylococcus epidermidis [place] Wound Culture K[place] rhizophila [facility] Gram stain for investigation of transfusion reactionOrdered By: Michelle Davies on 07-17-2023 Microscopic observation Gram stain Nom (Unsp spec) [place] 36on 07-11-2023 36 LVM to schedule appointment. [facility] 36 Can you schedule inperson visit with me next week. Thanks [facility] 36 Pt called and stated he saw Cardiology at [place] who noticed an opening at the top [...] EVH and PAM with Dr. Sal Lopes, ASSISTANT PROJECT MANAGER-CORE MAN Note 07/06/23: Called patient for postop follow-up. [...] follow-up needed will follow-up as needed Normal [facility] Progress Noteon 07-06-2023 Progress Note [facility]: CT SURGEONS [address] [facility] [address] Dept: [phone] Dept Loc: [phone] Visit type: Established patient - Virtual Surgery/Procedure: 05/31/23: CABGx5 (CAMPBELL to LAD, Free left radial to OM2, SVG to right pDA, SVG to Diag1, SVG to Diag2) left radial harvest R leg EVH and PAM with Dr. 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 -Surgical Incisions: Per patient healing [...] Crissy Engle DO Cardiology: Dr. Gaines Urology: [place] Patient was seen today via Telehealth by [...] stated that they are currently in the [facility]. If the patient is a minor, permission has been obtained by the parent or guardian for the patient to receive medical care at this visit. Patient identification was verified at the start of the visit: yes Total time spent on this encounter: 19 Subjective HPI: 62 y.o. 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 Pmhx including RCA and [...] note patient lives alone at home. 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 Patient underwent surgery on 06/01/23. Patient did well post-op, only complication was urinary retention for which a isaac was re-placed and Urology consulted. A referral was placed to Urology in [place] for him to follow up with. He [...] to urinary retention July 14 through the [place]. Patient would like to establish with Dr. Gaines at [place] will forward appropriate documents to his office [...] case. Num (more content not included)... Normal [facility] 36on 06-28-2023 36 Called patient, see telephone encounter. [facility] 36 @LOGO@ [facility]: CT SURGE[facility] [place] [address] [facility] [address] Dept: [phone] Dept Loc: [phone] Visit type: Established patient Reason for Visit: [...] DO Subjective HPI: 62 y.o. 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 Pmhx including RCA and [...] note patient lives alone at home. 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 Patient underwent surgery on 06/01/23. Patient did well post-op, only complication was urinary retention for which a isaac was re-placed and Urology consulted. A referral was placed to Urology in [place] for him to follow up with. He [...] like to establish with Dr. Gaines at [place] will forward appropriate documents to his office [...] to work. 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 Normal [facility] 36 Patient called in wanting a work release dated for MondayJuly 02 with no restrictions. Also would like message about leg pain addressed. In addition he is also c/o hand going numb and turning a white to blue color and this of concern to him if this could be addressed as well. Please call [facility] 36on 06-27-2023 36 Pt states he is [...] EVH and PAM with Dr. Sal Lopes, ASSISTANT PROJECT MANAGER-CORE MAN Note 06/14/23 Patient presents today for postop [...] to urinary retention July 14 through the [place]. Patient would like to establish with Dr. Gaines at [place] will forward appropriate documents to his office [...] at least 20 minutes before reapplying. Normal [facility] 36 Terry called in and is having some pain in his left hip to knee on the outside. Feels like it falls asleep and then had stabbing pain. Wakes him from his sleep. Please call him back to discuss. [facility] Office Visiton 06-14-2023 Follow-up visit [id number] Sylvester Lacy 1960 M Date Provider Department Center 06/14/2023 [id number]-RFCWNRDARION LOPES [facility] ACH CT None Family History Problem Relation Age of Onset Diabetes Mother Family Status - Relation Status Age at Mother Level of Service:70619 PA POSTOP FOLLOW UP VISIT RELATED TO ORIGINAL PX Reason for Visit and Comments: Post-op [483] [facility] PATINSon 06-14-2023 PATINS Yes weight restriction measures 1-4 weeks from date of surgery- 10lbs weight restriction: 06/28/23 5-8 weeks from date of surgery- 20lbs weight restriction approximate end date: 07/26/[address] [facility] Progress Noteon 06-14-2023 Progress Note [facility]: CT [facility] [address] [facility] [address] Dept: [phone] Dept Loc: [phone] Visit type: Established patient - in person [...] Crissy Engle DO Cardiology: Dr. Gaines Urology: [place] Subjective HPI: 62 y.o. 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 Pmhx including RCA and [...] note patient lives alone at home. Former [place] [employer] and deals primary for [place] through [place] Patient underwent surgery on 06/01/23. Patient did well post-op, only complication was urinary retention for which a isaac was re-placed and Urology consulted. A referral was placed to Urology in [place] for him to follow up with. He [...] to urinary retention July 14 through the [place]. Patient would like to establish with Dr. Gaines at [place] will forward appropriate documents to his office [...] been dictated usin (more content not included)... [facility] 36on 06-09-2023 36 Patient called in and is experiencing some chest discomfort. He said it comes and goes, not sure if he is over doing it. Nervous due to living alone and worried something may happen. Please call him back to discuss. [phone] [facility] CARECOORDon 06-08-2023 [facility] Patient Choice Patient Name: SYLVESTER LACY Date of : 1960 Normal [facility] [id number] 06-06-2023 [id number] Reached out to [facility] on 06/07/23 they received auth from [place] to accept case. [facility] BASIC METABOLIC PANELon 05-25 Anion gap [Moles/Vol] 5 mmol/L Normal -13 [facility] Comment on above: Performed By: #### L AB15 ####[employer] Advisor: ALONZO ALMODOVAR ([phone])[facility] ([facility])[address] [place] [address] Calcium [Mass/Vol] 8.8 mg/dL Normal 8.4-10.4 [facility] Comment on above: Performed By: #### L AB15 ####[employer] Advisor: ALONZO ALMODOVAR ([phone])[facility] ([facility])[address] [place] [address] Chloride [Moles/Vol] 102 mmol/L Normal 98-107 [facility] Comment on above: Performed By: #### L AB15 ####[employer] Advisor: ALONZO ALMODOVAR ([phone])[facility] ([facility])[address] [place] [address] CO2 [Moles/Vol] 27 mmol/L Normal 22-30 [facility] Comment on above: Performed By: #### L AB15 ####[employer] Advisor: ALONZO ALMODOVAR ([phone])[facility] ([facility])[address] [place] [address] Creatinine [Mass/Vol] 0.67 mg/dL Normal 0.66-1.25 [facility] Comment on above: Performed By: #### L AB15 ####[employer] Advisor: ALONZO ALMODOVAR ([phone])[facility])[address] [place] [address] GLOMERULAR FILTRATION RATE ML/MIN/1.73 SQ M.PREDICTED >90.0 Normal >60.0 [facility] Comment on above: Result Comment: Calc ulation based on the Chronic Kidney Disease Epidemiology Collaboration (CKD-EPI) equation refit without adjustment for race Performed By: #### L AB15 ####[employer] Advisor: ALONZO ALMODOVAR ([phone])[facility])[address] [place] [address] Glucose [Mass/Vol] 109 mg/dL High 70-100 [facility] Comment on above: Performed By: #### L AB15 ####[employer] Advisor: ALONZO ALMODOVAR ([phone])[facility])[address] [place] [address] Potassium [Moles/Vol] 4.4 mmol/L Normal 3.5-5.1 [facility] Comment on above: Performed By: #### L AB15 ####[employer] Advisor: ALONZO ALMODOVAR ([phone])[facility])[address] [place] [address] Sodium [Moles/Vol] 135 mmol/L Normal 135-145 [facility] Comment on above: Performed By: #### L AB15 ####[employer] Advisor: ALONZO ALMODOVAR ([phone])[facility])[address] [place] [address] Urea nitrogen [Mass/Vol] 20 mg/dL Normal 9-20 [facility] Comment on above: Performed By: #### L AB15 ####[employer] Advisor: ALONZO ALMODOVAR ([phone])[facility])[address] [place] [address] Basic metabolic 1998 panelon 06-06-2023 Anion gap [Moles/Vol] 5 mmol/L 3 - 13 mmol/L [facility] Calcium [Mass/Vol] 8.8 mg/dL 8.4 - 10. 4 mg/dL [facility] Chloride [Moles/Vol] 102 mmol/L 98 - 10 7 mmol/L [facility] CO2 [Moles/Vol] 27 mmol/L 22 - 30 mmol/L [facility] Creatinine [Mass/Vol] 0.67 mg/dL 0.66 - 1.25 mg/dL [facility] GFR/1.73 sq M.predicted MDRD (S/P/Bld) [Vol rate/Area] - PINF [facility] Comment on above: Calculation based on the Chronic Kidney Disease Epidemiology Collaboration (CKD-EPI) equation refit without adjustment for race Glucose [Mass/Vol] 109 mg/dL High 70 - 100 mg/dL [facility] Interpretation and review of laboratory results Abnormal [facility] Potassium [Moles/Vol] 4.4 mmol/L 3.5 - 5.1 mmol/L [facility] Sodium [Moles/Vol] 135 mmol/L 135 - 145 mmol/L [facility] Urea nitrogen [Mass/Vol] 20 mg/dL 9 - 20 mg/d L [facility] CARECOORDon 06-06-2023 [place]ORD Spoke with patient at bedside, discussed BETH enriquez currently working with [facility] to obtain [place] auth for home care. No further discharge needs expressed. Normal [facility] CBC (HEMOGRAM)on 06-06-2023 Erythrocyte distribution width (RBC) [Ratio] 14.0 % Normal 11.5-15.0 [facility] Comment on above: Performed By: #### L [id number] ####[employer] Advisor: ALONZO ALMODOVAR ([phone])[address] Hematocrit (Bld) [Volume fraction] 29.9 % Low 40.0-52.0 [facility] Comment on above: Performed By: #### L [id number] ####[employer] Advisor: ALONZO ALMODOVAR ([phone])[facility])[address] [place] [address] Hemoglobin (Bld) [Mass/Vol] 9.9 g/dL Low 13.0-18.0 [facility] Comment on above: Performed By: #### L AB294 ####[employer] Advisor: ALONZO ALMODOVAR ([phone])[facility])[address] [place] [address] MCH (RBC) [Entitic mass] 28.8 pg Normal 26.0-34.0 [facility] Comment on above: Performed By: #### L AB294 ####[employer] Advisor: ALONZO ALMODOVAR ([phone])[facility] ([facility])[address] [place] [address] MCHC 33.1 % Normal 30.5-36.0 [facility] Comment on above: Performed By: #### L AB294 ####[employer] Advisor: ALONZO ALMODOVAR ([phone])[facility] ([facility])[address] [place] [address] MCV (RBC) [Entitic vol] 86.9 fL Normal 77.0-99.0 [facility] Comment on above: Performed By: #### L [id number] ####[employer] Advisor: ALONZO ALMODOVAR ([phone])[facility])[address] [place] [address] Platelet mean volume (Bld) [Entitic vol] 9.4 fL Normal 9.0-12.7 [facility] Comment on above: Performed By: #### L AB294 ####[employer] Advisor: ALONZO ALMODOVAR ([phone])[facility] ([facility])[address] [place] [address] Platelets (Bld) [#/Vol] 196 10*3/uL Normal 140-440 [facility] Comment on above: Performed By: #### L [id number] ####[employer] Advisor: ALONZO ALMODOVAR ([phone])[facility])[address] [place] [address] RBC (Bld) [#/Vol] 3.44 10*6/uL Low 4.40-5.90 [facility] Comment on above: Performed By: #### L [id number] ####[employer] Advisor: ALONZO ALMODOVAR ([phone])[facility])[address] [place] [address] WBC (Bld) [#/Vol] 6.0 10*3/uL Normal 3.6-10.7 [facility] Comment on above: Performed By: #### L [id number] ####[employer] Advisor: ALONZO ALMODOVAR ([phone])[facility] ([facility])[address] [place] [address] CBC panel Auto (Bld)on 06-05 Erythrocyte distribution width (RBC) [Ratio] 14.0 % 11.5 - 15.0 % [facility] Hematocrit (Bld) [Volume fraction] 29.9 % Low 40.0 - 52.0 % [facility] Hemoglobin (Bld) [Mass/Vol] 9.9 g/dL Low 13.0 - 18.0 g/dL [facility] Interpretation and review of laboratory results Abnormal [facility] MCH (RBC) [Entitic mass] 28.8 pg 26. 0 - 34.0 pg [facility] MCHC (RBC) [Mass/Vol] 33.1 % 30.5 - 36.0 % [facility] MCV (RBC) [Entitic vol] 86.9 fL 77.0 - 99.0 fL [facility] Platelet mean volume (Bld) [Entitic vol] 9.4 fL 9.0 - 12.7 fL [facility] Platelets (Bld) [#/Vol] 196 10*3/uL 140 - 440 10*3/uL [facility] RBC (Bld) [#/Vol] 3.44 10*6/uL Low 4.40 - 5.9 0 10*6/uL [facility] WBC (Bld) [#/Vol] 6.0 10*3/uL 3.6 - 10.7 10*3/uL [facility] Progress Noteon 06-06-2023 Progress Note Nutrition Note [...] and cholesterol, reading nutrition labels, etc. Provided [facility] Diet for Heart Health handout for reference as well as [facility] [address] phone number. Pt's questions were answered to his satisfaction and he verbalized understanding Domitila Herrera RD, LD Contact: *[phone] or via [employer] Normal [facility] Progress Note PHYSICAL THERAPY [facility] Treatment Note Name/MRN: Terry Lacy ([id number]) Date of : 1960 Age: 62 y.o. [...] reps each AROM Other exercises 2: IS [id number] mL x4 Bed Mobility Supine to sit: [...] was completed by a student physical therapist personal care assistant under the supervision of the cosigning therapist. Julia Bourgeois PTA Normal [facility] XR CHEST 1 VIEWon 06-06-2023 [...] Electronically Signed Date/Time: 06/06/2023 6:[address] [facility] XR Chest Single viewon 06-05 See findings. Report Dictated on Electronically Signed By: Mitch Pierson MD Electronically Signed Date/Time: 06/06/2023 6:06 AM EDT [facility] Patient Name: SYLVESTER LACY : 1960 Exam [...] pneumothorax. Osseous structures: No acute osseous abnormality. [facility] Mitch Pierson MD - 06/06/2023 Patient Name: SYLVESTER LACY : 1960 [id number] Exam Date/Time: 06/06/2023 05:12 Procedure: XR CHEST [...] Electronically Signed Date/Time: 06/06/2023 6:06 AM EDT [facility] Radiology Study observation (narrative) [facility] BASIC METABOLIC PANELon 03- Anion gap [Moles/Vol] 4 mmol/L Normal 3-13 [facility] Comment on above: Performed By: #### L AB15 ####[employer] Advisor: ALONZO ALMODOVAR ([phone])[facility] ([facility])[address] [place] [address] Calcium [Mass/Vol] 9.5 mg/dL Normal 8.4-10.4 [facility] Comment on above: Performed By: #### L AB15 ####[employer] Advisor: ALONZO ALMODOVAR ([phone])[facility] ([facility])[address] [place] [address] [place] Chloride [Moles/Vol] 101 mmol/L Normal 98-107 [facility] Comment on above: Performed By: #### L AB15 ####[employer] Advisor: ALONZO ALMODOVAR ([phone])[facility] ([facility])[address] [place] [address] [place] CO2 [Moles/Vol] 32 mmol/L High 22-30 [facility] Comment on above: Performed By: #### L AB15 ####[employer] Advisor: ALONZO ALMODOVAR ([phone])[facility] ([facility])[address] [place] [address] Creatinine [Mass/Vol] 0.69 mg/dL Normal 0.66-1.25 [facility] Comment on above: Performed By: #### L AB15 ####[employer] Advisor: ALONZO ALMODOVAR ([phone])[facility])[address] [place] [address] GLOMERULAR FILTRATION RATE ML/MIN/1.73 SQ M.PREDICTED >90.0 Normal >60.0 [facility] Comment on above: Result Comment: Calc ulation based on the Chronic Kidney Disease Epidemiology Collaboration (CKD-EPI) equation refit without adjustment for race Performed By: #### L AB15 ####[employer] Advisor: ALONZO ALMODOVAR ([phone])[facility] ([facility])[address] [place] [address] [place] Glucose [Mass/Vol] 123 mg/dL High 70-100 [facility] Comment on above: Performed By: #### L AB15 ####[employer] Advisor: ALONZO ALMODOVAR ([phone])[facility])[address] [place] [address] Potassium [Moles/Vol] 4.4 mmol/L Normal 3.5-5.1 [facility] Comment on above: Performed By: #### L AB15 ####[employer] Advisor: ALONZO ALMODOVAR ([phone])[facility])[address] [place] [address] [place] Sodium [Moles/Vol] 137 mmol/L Normal 135-145 [facility] Comment on above: Performed By: #### L AB15 ####[employer] Advisor: ALONZO ALMODOVAR ([phone])[facility])[address] [place] [address] [place] Urea nitrogen [Mass/Vol] 16 mg/dL Normal 9-20 [facility] Comment on above: Performed By: #### L AB15 ####[employer] Advisor: ALONZO ALMODOVAR ([phone])[facility] ([facility])[address] [place] [address] Basic metabolic 1998 panelon 06-05-2023 Anion gap [Moles/Vol] 4 mmol/L 3 - 13 mmol/L [facility] Calcium [Mass/Vol] 9.5 mg/dL 8.4 - 10. 4 mg/dL [facility] Chloride [Moles/Vol] 101 mmol/L 98 - 10 7 mmol/L [facility] CO2 [Moles/Vol] 32 mmol/L High 22 - 30 mmol/L [facility] Creatinine [Mass/Vol] 0.69 mg/dL 0.66 - 1.25 mg/dL [facility] GFR/1.73 sq M.predicted MDRD (S/P/Bld) [Vol rate/Area] - PINF [facility] Comment on above: Calculation based on the Chronic Kidney Disease Epidemiology Collaboration (CKD-EPI) equation refit without adjustment for race Glucose [Mass/Vol] 123 mg/dL High 70 - 100 mg/dL [facility] Interpretation and review of laboratory results Abnormal [facility] Potassium [Moles/Vol] 4.4 mmol/L 3.5 - 5.1 mmol/L [facility] Sodium [Moles/Vol] 137 mmol/L 135 - 145 mmol/L [facility] Urea nitrogen [Mass/Vol] 16 mg/dL 9 - 20 mg/d L [facility] CBC (HEMOGRAM)on 06-05-2023 Erythrocyte distribution width (RBC) [Ratio] 14.0 % Normal 11.5-15.0 [facility] Comment on above: Performed By: #### L [id number] ####[employer] Advisor: ALONZO ALMODOVAR ([phone])[facility] ([facility])[address] [place] [address] Hematocrit (Bld) [Volume fraction] 35.2 % Low 40.0-52.0 [facility] Comment on above: Performed By: #### L [id number] ####[employer] Advisor: ALONZO ALMODOVAR ([phone])[facility] ([facility])[address] [place] [address] Hemoglobin (Bld) [Mass/Vol] 11.5 g/dL Low 13.0-18.0 [facility] Comment on above: Performed By: #### L [id number] ####[employer] Advisor: ALONZO ALMODOVAR ([phone])[facility])[address] [place] [address] MCH (RBC) [Entitic mass] 28.9 pg Normal 26.0-34.0 [facility] Comment on above: Performed By: #### L AB294 ####[employer] Advisor: ALONZO ALMODOVAR ([phone])[facility])[address] [place] [address] MCHC 32.7 % Normal 30.5-36.0 [facility] Comment on above: Performed By: #### L AB294 ####[employer] Advisor: ALONZO ALMODOVAR ([phone])[facility])[address] [place] [address] MCV (RBC) [Entitic vol] 88.4 fL Normal 77.0-99.0 [facility] Comment on above: Performed By: #### L [id number] ####[employer] Advisor: ALONZO ALMODOVAR ([phone])[facility])[address] [place] [address] Platelet mean volume (Bld) [Entitic vol] 9.4 fL Normal 9.0-12.7 [facility] Comment on above: Performed By: #### L [id number] ####[employer] Advisor: ALONZO ALMODOVAR ([phone])[facility])[address] [place] [address] Platelets (Bld) [#/Vol] 192 10*3/uL Normal 140-440 [facility] Comment on above: Performed By: #### L [id number] ####[employer] Advisor: ALONZO ALMODOVAR ([phone])[facility])[address] [place] [address] RBC (Bld) [#/Vol] 3.98 10*6/uL Low 4.40-5.90 [facility] Comment on above: Performed By: #### L AB294 ####[employer] Advisor: ALONZO ALMODOVAR ([phone])[facility] ([facility])[address] [place] [address] WBC (Bld) [#/Vol] 6.2 10*3/uL Normal 3.6-10.7 [facility] Comment on above: Performed By: #### L AB294 ####[employer] Advisor: ALONZO ALMODOVAR ([phone])[facility] ([facility])[address] [place] [address] CBC panel Auto (Bld)Ordered By: Kranthi Fang on 06-05-2023 Erythrocyte distribution width (RBC) [Ratio] 14.0 % 11.5 - 15.0 % [facility] Hematocrit (Bld) [Volume fraction] 35.2 % Low 40.0 - 52.0 % [facility] Hemoglobin (Bld) [Mass/Vol] 11.5 g/dL Low 13.0 - 18.0 g/dL [facility] Interpretation and review of laboratory results Abnormal [facility] MCH (RBC) [Entitic mass] 28.9 pg 26. 0 - 34.0 pg [facility] MCHC (RBC) [Mass/Vol] 32.7 % 30.5 - 36.0 % [facility] MCV (RBC) [Entitic vol] 88.4 fL 77.0 - 99.0 fL [facility] Platelet mean volume (Bld) [Entitic vol] 9.4 fL 9.0 - 12.7 fL [facility] Platelets (Bld) [#/Vol] 192 10*3/uL 140 - 440 10*3/uL [facility] RBC (Bld) [#/Vol] 3.98 10*6/uL Low 4.40 - 5.9 0 10*6/uL [facility] WBC (Bld) [#/Vol] 6.2 10*3/uL 3.6 - 10.7 10*3/uL [facility] COMPLETE URINALYSISon 2023 BACTERIA (#/HPF) IN URINE Negative Normal Negative [facility] Comment on above: Performed By: #### L [id number] ####[employer] Advisor: ALONZO ALMODOVAR ([phone])[facility] [place] [address] BILIRUBIN, TOTAL PRESENCE IN URINE Negative Normal Negative [facility] Comment on above: Performed By: #### L [id number] ####[employer] Advisor: ALONZO ALMODOVAR ([phone])[facility])[address] [place] [address] Clarity (U) Cloudy Abnormal Clear [facility] Comment on above: Performed By: #### L [id number] ####[employer] Advisor: ALONZO ALMODOVAR ([phone])[facility])[address] [place] [address] Color (U) Yellow Normal Lt. Yellow [facility] Comment on above: Performed By: #### L [id number] ####[employer] Advisor: ALONZO ALMODOVAR ([phone])[facility])[address] [place] [address] GLUCOSE (MG/DL) IN URINE Normal Normal Normal (<70 ) [facility] Comment on above: Performed By: #### L [id number] ####[employer] Advisor: ALONZO ALMODOVAR ([phone])[facility])[address] [place] [address] HEMOGLOBIN PRESENCE IN URINE 1.0 mg/dL Abnormal Negative [facility] Comment on above: Performed By: #### L AB347 ####[employer] Advisor: ALONZO ALMODOVAR ([phone])[facility] ([facility])[address] [place] [address] HYALINE CASTS (#/LPF) IN URINE SEDIMENT BY MICROSCOPY 3-5 Abnormal Negative [facility] Comment on above: Performed By: #### L [id number] ####[employer] Advisor: ALONZO ALMODOVAR ([phone])[facility])[address] [place] [address] Ketones Ql (U) 10 mg/dL Abnormal Negative [facility] Comment on above: Performed By: #### L AB347 ####[employer] Advisor: ALONZO ALMODOVAR ([phone])[facility])[address] [place] [address] LEUKOCYTE ESTERASE PRESENCE IN URINE BY TEST STRIP Negative Normal Negative [facility] Comment on above: Performed By: #### L [id number] ####[employer] Advisor: ALONZO ALMODOVAR ([phone])[facility])[address] [place] [address] MUCUS (#/LPF) IN URINE SEDIMENT Moderate Abnormal Negative [facility] Comment on above: Performed By: #### L [id number] ####[employer] Advisor: ALONZO ALMODOVAR ([phone])[facility])[address] [place] [address] NITRITE PRESENCE IN URINE Negative Normal Negative [facility] Comment on above: Performed By: #### L AB347 ####[employer] Advisor: ALONZO ALMODOVAR ([phone])[facility])[address] [place] [address] pH (U) 8.5 [pH] Abnormal 5.0-8.0 [facility] Comment on above: Performed By: #### L [id number] ####[employer] Advisor: ALONZO ALMODOVAR ([phone])[facility])[address] [place] [address] Protein (U) [Mass/Vol] 600 mg/dL Abnormal Negative [facility] Comment on above: Performed By: #### L AB347 ####[employer] Advisor: ALONZO ALMODOVAR ([phone])[facility])[address] [place] [address] RBC (#/HPF) IN URINE SEDIMENT >100 Abnormal 0-2 [facility] Comment on above: Performed By: #### L [id number] ####[employer] Advisor: ALONZO ALMODOVAR ([phone])[facility])[address] [place] [address] Specific gravity (U) [Rel density] 1.024 Normal 1.005-1.030 [facility] Comment on above: Performed By: #### L [id number] ####[employer] Advisor: ALONZO ALMODOVAR ([phone])[facility] ([address] SQUAMOUS EPITHELIAL CELLS (#/HPF) IN URINE SEDIMENT Negative Normal 3-5 [facility] Comment on above: Performed By: #### L [id number] ####[employer] Advisor: ALONZO ALMODOVAR ([phone])[facility])[address] [place] [address] UROBILINOGEN (MG/DL) IN URINE Normal Normal Normal (0-1) [facility] Comment on above: Performed By: #### L [id number] ####[employer] Advisor: ALONZO ALMODOVAR ([phone])[facility])[address] [place] [address] WBC (LEUKOCYTE) (#/HPF) IN URINE SEDIMENT 11-25 Abnormal 0-5 [facility] Comment on above: Performed By: #### L [id number] ####[employer] Advisor: ALONZO ALMODOVAR ([phone])[address] Consulton 06-05-2023 Consult [facility] Wound Care CONSULT Note Sylvester Lacy AGE: 62 y.o. GENDER: male : 1960 Subjective: HISTORY of PRESENT ILLNESS HPI Sylvester Lacy is a 62 y.o. male who presents for a wound consult. HPI: 62 y.o. 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 Pmhx including RCA and [...] note patient lives alone at home. Former [employer] and deals primary for healthcare through [...] leg: surgical (more content not included)... Normal [facility] Consult Attestation signed by Bryant Breaux MD [...] (Hibiclens) 4 % liquid, , Topical, Once, Darion Lopes, ASSISTANT PROJECT MANAGER - [employer] chlorhexidine (Hibiclens) 4 % liquid, , Topical, [...] - recommend (more content not included)... Normal [facility] Progress Noteon 06-05-2023 Progress Note PHYSICAL THERAPY [facility] Treatment Note Name/MRN: Terry Lacy ([id number]) Date of : 1960 Age: 62 y.o. [...] was completed by a student physical therapist personal care assistant under the supervision of the cosigning therapist. Julia Bourgeois PTA [facility] Progress Note Cardiothoracic Surgery Interval Note PATIENT NAME: Sylvester Lacy : 1960 (62 y.o.) TODAY'S DATE: 06/05/2023 Interval History: After discussion with surgeon Home isaac and consult urology for recs. Patient likely d/c in next day or two [facility] Progress Note Attestation signed by Alex Moy MD at 06/05/2023 11:20 AM (Updated) I have personally performed a face to face diagnostic evaluation on this patient today on 06/05/23. Labs, imaging studies, and electronic medical record notes on [employer] have been reviewed by me. 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 Pmhx including RCA and [...] note patient lives alone at home. 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 Normal [facility] Urinalysis complete panel (U )Ordered By: Renea Dhaliwal on 06-05-2023 Bacteria LM.HPF (Urine sed) [#/Area] Negative Negative /HPF [facility] Bilirubin Ql (U) Negative Negative mg/dL [facility] Clarity (U) Cloudy Abnormal Clear [facility] Color (U) Yellow Lt. Yellow [facility] Epithelial cells.squamous LM.HPF (Urine sed) [#/Area] Negative [facility] Glucose Ql (U) Normal Normal (<70) mg/dL [facility] Hemoglobin Ql (U) 1.0 mg/dL Abnormal Negative [facility] Hyaline casts Auto (Urine sed) [#/Area] 3-5 Abnormal Negative /LPF [facility] Interpretation and review of laboratory results Abnormal [facility] th Ketones (U) [Mass/Vol] 10 mg/dL Abnormal Negative [facility] Leukocyte esterase Test strip Ql (U) Negative Negative Niecy/uL [facility] Mucus LM.HPF (Urine sed) [#/Area] Moderate Abnormal Negative /LPF [facility] Nitrite Ql (U) Negative Negative [facility] th pH (U) 8.5 [pH] Abnormal 5.0 - 8.0 pH [facility] Protein (U) [Mass/Vol] 600 mg/dL Abnormal Negative [facility] RBC LM.HPF (Urine sed) [#/Area] /[HPF] Abnormal [facility] Specific gravity (U) [Rel density] 1.024 1.005 - 1.030 [facility] Urobilinogen (U) [Mass/Vol] Normal Normal (0-1) mg/dL [facility] WBC LM.HPF (Urine sed) [#/Area] 11-25 Abnormal [facility] XR CHEST 1 VIEWon 06-05-2023 XR CHEST [...] Electronically Signed Date/Time: 06/05/2023 9:37 AM EDT Normal [facility] XR Chest Single viewon 06-04 No new consolidation, atelectasis or pleural effusion. Report Dictated on Electronically Signed By: Daniel Fall MD Electronically Signed Date/Time: 06/05/2023 9:37 AM EDT [facility] Patient Name: SYLVESTER LACY : 1960 Exam Date/Time: 06/05/2023 05:47 Procedure: XR CHEST 1 VIEW Ordering Provider: LOPES ANDREW Reason For Exam: Shortness of breath CHEST - PORTABLE: CLINICAL INDICATION: Respiratory distress for follow up TECHNIQUE: Portable AP COMPARISON: One day ago FINDINGS: Heart/Mediastinum: Unchanged Lungs/Pleura: No new consolidation or atelectasis. Costophrenic angles are sharp. [facility] Daniel Fall MD - 06/05/2023 Patient [...] Electronically Signed Date/Time: 06/05/2023 9:37 AM EDT [facility] Radiology Study observation (narrative) [facility] XR Chest Single viewOrdered By: Daniel Fall on 06-05-2023 [facility] Work Phone: BASIC METABOLIC PANELon 05-25 Anion gap [Moles/Vol] 5 mmol/L Normal 3-13 [facility] Comment on above: Performed By: #### L AB15 ####[employer] Advisor: ALONZO ALMODOVAR ([phone])[facility])[address] [place] [address] Calcium [Mass/Vol] 9.3 mg/dL Normal 8.4-10.4 [facility] Comment on above: Performed By: #### L AB15 ####[employer] Advisor: ALONZO ALMODOVAR ([phone])[facility] ([facility])[address] [place] [address] [place] Chloride [Moles/Vol] 100 mmol/L Normal 98-107 [facility] Comment on above: Performed By: #### L AB15 ####[employer] Advisor: ALONZO ALMODOVAR ([phone])[facility])[address] [place] [address] CO2 [Moles/Vol] 33 mmol/L High 22-30 [facility] Comment on above: Performed By: #### L AB15 ####[employer] Advisor: ALONZO ALMODOVAR ([phone])[facility] ([facility])[address] [place] [address] Creatinine [Mass/Vol] 0.70 mg/dL Normal 0.66-1.25 [facility] Comment on above: Performed By: #### L AB15 ####[employer] Advisor: ALONZO ALMODOVAR ([phone])[facility] ([facility])[address] [place] [address] GLOMERULAR FILTRATION RATE ML/MIN/1.73 SQ M.PREDICTED >90.0 Normal >60.0 [facility] Comment on above: Result Comment: Calc ulation based on the Chronic Kidney Disease Epidemiology Collaboration (CKD-EPI) equation refit without adjustment for race Performed By: #### L AB15 ####[employer] Advisor: ALONZO ALMODOVAR ([phone])[facility] ([facility])[address] [place] [address] Glucose [Mass/Vol] 137 mg/dL High 70-100 [facility] Comment on above: Performed By: #### L AB15 ####[employer] Advisor: ALONZO ALMODOVAR ([phone])[facility] ([facility])[address] [place] [address] Potassium [Moles/Vol] 4.5 mmol/L Normal 3.5-5.1 [facility] Comment on above: Performed By: #### L AB15 ####[employer] Advisor: ALONZO ALMODOVAR ([phone])[facility] [place] [address] [place] Sodium [Moles/Vol] 139 mmol/L Normal 135-145 [facility] Comment on above: Performed By: #### L AB15 ####[employer] Advisor: ALONZO ALMODOVAR ([phone])[facility] ([facility])[address] [place] [address] Urea nitrogen [Mass/Vol] 18 mg/dL Normal 9-20 [facility] Comment on above: Performed By: #### L AB15 ####[employer] Advisor: ALONZO ALMODOVAR ([phone])[facility])[address] [place] [address] Basic metabolic 1998 panelon 06-04-2023 Anion gap [Moles/Vol] 5 mmol/L 3 - 13 mmol/L [facility] Calcium [Mass/Vol] 9.3 mg/dL 8.4 - 10. 4 mg/dL [facility] Chloride [Moles/Vol] 100 mmol/L 98 - 10 7 mmol/L [facility] CO2 [Moles/Vol] 33 mmol/L High 22 - 30 mmol/L [facility] Creatinine [Mass/Vol] 0.70 mg/dL 0.66 - 1.25 mg/dL [facility] GFR/1.73 sq M.predicted MDRD (S/P/Bld) [Vol rate/Area] - PINF [facility] Comment on above: Calculation based on the Chronic Kidney Disease Epidemiology Collaboration (CKD-EPI) equation refit without adjustment for race Glucose [Mass/Vol] 137 mg/dL High 70 - 100 mg/dL [facility] Interpretation and review of laboratory results Abnormal [facility] th Potassium [Moles/Vol] 4.5 mmol/L 3.5 - 5.1 mmol/L [facility] Sodium [Moles/Vol] 139 mmol/L 135 - 145 mmol/L [facility] Urea nitrogen [Mass/Vol] 18 mg/dL 9 - 20 mg/d L [facility] CBC (HEMOGRAM)on 06-04-2023 Erythrocyte distribution width (RBC) [Ratio] 14.1 % Normal 11.5-15.0 [facility] Comment on above: Performed By: #### L [id number] ####[employer] Advisor: ALONZO ALMODOVAR ([phone])[facility])[address] [place] [address] Hematocrit (Bld) [Volume fraction] 33.9 % Low 40.0-52.0 [facility] Comment on above: Performed By: #### L [id number] ####[employer] Advisor: ALONZO ALMODOVAR ([phone])[facility])[address] [place] [address] Hemoglobin (Bld) [Mass/Vol] 10.5 g/dL Low 13.0-18.0 [facility] Comment on above: Performed By: #### L [id number] ####[employer] Advisor: ALONZO ALMODOVAR ([phone])[facility])[address] [place] [address] MCH (RBC) [Entitic mass] 28.2 pg Normal 26.0-34.0 [facility] Comment on above: Performed By: #### L [id number] ####[employer] Advisor: ALONZO ALMODOVAR ([phone])[facility])[address] [place] [address] MCHC 31.0 % Normal 30.5-36.0 [facility] Comment on above: Performed By: #### L [id number] ####[employer] Advisor: ALONZO ALMODOVAR ([phone])[facility])[address] [place] [address] MCV (RBC) [Entitic vol] 90.9 fL Normal 77.0-99.0 [facility] Comment on above: Performed By: #### L [id number] ####[employer] Advisor: ALONZO ALMODOVAR ([phone])[facility])[address] [place] [address] Platelet mean volume (Bld) [Entitic vol] 9.8 fL Normal 9.0-12.7 [facility] Comment on above: Performed By: #### L [id number] ####[employer] Advisor: ALONZO ALMODOVAR ([phone])[facility])[address] [place] [address] [place] Platelets (Bld) [#/Vol] 138 10*3/uL Low 140-440 [facility] Comment on above: Performed By: #### L [id number] ####[employer] Advisor: ALONZO ALMODOVAR ([phone])[facility])[address] [place] [address] RBC (Bld) [#/Vol] 3.73 10*6/uL Low 4.40-5.90 [facility] Comment on above: Performed By: #### L [id number] ####[employer] Advisor: ALONZO ALMODOVAR ([phone])[facility] ([facility])[address] [place] [address] WBC (Bld) [#/Vol] 7.0 10*3/uL Normal 3.6-10.7 [facility] Comment on above: Performed By: #### L [id number] ####[employer] Advisor: ALONZO ALMODOVAR ([phone])[facility] ([facility])[address] [place] [address] CBC panel Auto (Bld)Ordered By: Baljeet Saravia on 06-04-2023 Erythrocyte distribution width (RBC) [Ratio] 14.1 % 11.5 - 15.0 % [facility] Hematocrit (Bld) [Volume fraction] 33.9 % Low 40.0 - 52.0 % [facility] Hemoglobin (Bld) [Mass/Vol] 10.5 g/dL Low 13.0 - 18.0 g/dL [facility] Interpretation and review of laboratory results Abnormal [facility] MCH (RBC) [Entitic mass] 28.2 pg 26. 0 - 34.0 pg [facility] MCHC (RBC) [Mass/Vol] 31.0 % 30.5 - 36.0 % [facility] MCV (RBC) [Entitic vol] 90.9 fL 77.0 - 99.0 fL [facility] Platelet mean volume (Bld) [Entitic vol] 9.8 fL 9.0 - 12.7 fL [facility] Platelets (Bld) [#/Vol] 138 10*3/uL Low 140 - 440 10*3/uL [facility] RBC (Bld) [#/Vol] 3.73 10*6/uL Low 4.40 - 5.9 0 10*6/uL [facility] WBC (Bld) [#/Vol] 7.0 10*3/uL 3.6 - 10.7 10*3/uL [facility] ECG 12-LEADon 06-04-2023 ECG 12-LEAD IMPRESSION: Sinus rhythm Borderline left axis deviation Minimal ST elevation, inferior leads Electronically Signed On 06-04-2023 11:45:44 EDT by Chip Godfrey [facility] - Coagulationon 0 06-04-2023 aPTT Coag (PPP) [Time] 28.8 s 20.0 - 30.5 s [facility] INR Coag (PPP) [Relative time] 1.0 {INR} 0.9 - 1.1 [facility] Comment on above: Recommended Anticoag ulant Therapy: [...] [Time] 10.5 s 9.0 - 12.0 s [facility] No Panel InformationOrdered By: Chip Mobley on 06-04-2023 P [place] 13 degrees [employer] Work Phone: PA Interval 166 ms [employer] Work Phone: QRS [place] -21 degrees [employer] Work Phone: QRSD Interval 80 ms [employer] Work Phone: QT Interval 351 ms [employer] Work Phone: [phone] QTC Interval 423 ms [employer] Work Phone: [phone] T Wave [place] 36 degrees [employer] Work Phone: [facility] Work Phone: No Panel Informationon 06-03 Sinus rhythm Borderline left axis deviation Minimal ST elevation, inferior leads Electronically Signed On 06-04-2023 11:45:44 EDT by Chip Franklin MD - 06/04/2023 IMPRESSION: Sinus rhythm Borderline left axis deviation Minimal ST elevation, inferior leads Electronically Signed On 06-04-2023 11:45:44 EDT by Chip Mobley [facility] Interpretation and review of laboratory results Normal [facility] delicious Blood Expiration Date [id number] [facility] Crossmatch interpretation COMP [employer] delicious Dispense Status Released from [employer] [facility] delicious Product Blood Type 6200 [facility] PRODUCT CODE [id number] [facility] Unit ABO A [facility] Unit Number [id number] [facility] Number [id number] [facility] RH Positive [facility] Volume 300 mL [facility] PROTIME AND APTTon aPTT Coag (Bld) [Time] 28.8 s Normal 20.0-30.5 [facility] Comment on above: Performed By: #### Sebastien [id number] ####[employer] Advisor: ALONZO ALMODOVAR ([phone])[facility])[address] [place] [address] INR Coag (PPP) [Relative time] 1.0 {INR} Normal 0.9-1.1 [facility] Comment on above: Result Comment: Kam mmended [...] prevent Myocardial Infarction Performed By: #### L [id number] ####[employer] Advisor: ALONZO ALMODOVAR ([phone])[facility] ([facility])[address] [place] [address] PT Coag (PPP) [Time] 10.5 s Normal 9.0-12.0 [facility] Comment on above: Performed By: #### L [id number] ####[employer] Advisor: ALONZO ALMODOVAR ([phone])[facility] ([facility])[address] [place] [address] Progress Noteon 06-04-2023 Progress Note Attestation signed by Susan Covington DO at 06/04/2023 1:30 PM (Updated) I have personally performed a [id number] diagnostic evaluation on this patient on date of service 06/04/23. History, labs, imaging studies, and electronic medical record have been reviewed by me. This note documented by the []lodging house keeper [x]MATTY reflects my history, exam, and medical [...] DATE: 06/04/23 HPI: 62 y.o. 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 Pmhx including RCA and [...] note patient lives alone at home. Former [place] [employer] and deals primary for healthcare through [...] Blood Conservation: None noted in post-operative period German Professor: MIESHA Yuan with [facility] (more content not included)... Normal [employer] [facility] Vital signsOrdered By: Chip Mobley on 06-04-2023 Heart rate 87 /min bpm [employer] Work Phone: XR CHEST 1 VIEWon 06-04-2023 [...] Electronically Signed Date/Time: 06/04/2023 8:[address] [facility] XR Chest Single viewon 06-03 1. Lines/Tubes/Devices/ [...] Electronically Signed Date/Time: 06/04/2023 8:05 AM EDT [facility] Patient Name: SYLVESTER LACY : 1960 [...] was obtained and reviewed. Special views: None. [facility] Omid Pérez MD - 06/04/2023 Patient Name: SYLVESTER LACY : 1960 [id number] Exam Date/Time: 06/04/2023 07:32 Procedure: XR CHEST [...] Electronically Signed Date/Time: 06/04/2023 8:05 AM EDT [facility] Radiology Study observation (narrative) [facility] XR Chest Single viewOrdered By: Omid Pérez on 06-04-2023 [facility] Work Phone: BASIC METABOLIC PANELon Anion gap [Moles/Vol] 8 mmol/L Normal 3-13 [facility] Comment on above: Performed By: #### L AB103, LAB15 ####[employer] Advisor: ALONZO ALMODOVAR ([phone])[address] Calcium [Mass/Vol] 8.6 mg/dL Normal 8.4-10.4 [facility] Comment on above: Performed By: #### L AB103, LAB15 ####[employer] Advisor: ALONZO ALMODOVAR ([phone])[facility] ([facility])[address] [place] [address] Chloride [Moles/Vol] 103 mmol/L Normal 98-107 [facility] Comment on above: Performed By: #### L AB103, LAB15 ####[employer] Advisor: ALONZO ALMODOVAR ([phone])[facility] ([facility])[address] [place] [address] [place] CO2 [Moles/Vol] 24 mmol/L Normal 22-30 [facility] Comment on above: Performed By: #### L AB103, LAB15 ####[employer] Advisor: ALONZO ALMODOVAR ([phone])[facility] ([facility])[address] [place] [address] Creatinine [Mass/Vol] 0.88 mg/dL Normal 0.66-1.25 [facility] Comment on above: Performed By: #### L AB103, LAB15 ####[employer] Advisor: ALONZO ALMODOVAR ([phone])[facility])[address] [place] [address] GLOMERULAR FILTRATION RATE ML/MIN/1.73 SQ M.PREDICTED >90.0 Normal >60.0 [facility] Comment on above: Result Comment: Calc ulation based on the Chronic Kidney Disease Epidemiology Collaboration (CKD-EPI) equation refit without adjustment for race Performed By: #### L AB103, LAB15 ####[employer] Advisor: ALONZO ALMODOVAR ([phone])[facility] ([facility])[address] [place] [address] [place] Glucose [Mass/Vol] 149 mg/dL High 70-100 [facility] Comment on above: Performed By: #### L AB103, LAB15 ####[employer] Advisor: ALONZO ALMODOVAR ([phone])[facility])[address] [place] [address] [place] Potassium [Moles/Vol] 4.2 mmol/L Normal 3.5-5.1 [facility] Comment on above: Performed By: #### L AB103, LAB15 ####[employer] Advisor: ALONZO ALMODOVAR ([phone])[facility])[address] [place] [address] Sodium [Moles/Vol] 134 mmol/L Low 135-145 [facility] Comment on above: Performed By: #### L AB103, LAB15 ####[employer] Advisor: ALONZO ALMODOVAR ([phone])[facility])[address] [place] [address] Urea nitrogen [Mass/Vol] 20 mg/dL Normal 9-20 [facility] Comment on above: Performed By: #### L AB103, LAB15 ####[employer] Advisor: ALONZO ALMODOVAR ([phone])[facility])[address] [place] [address] Basic metabolic 1998 panelon 06-03-2023 Anion gap [Moles/Vol] 8 mmol/L 3 - 13 mmol/L [facility] Calcium [Mass/Vol] 8.6 mg/dL 8.4 - 10. 4 mg/dL [facility] Chloride [Moles/Vol] 103 mmol/L 98 - 10 7 mmol/L [facility] CO2 [Moles/Vol] 24 mmol/L 22 - 30 mmol/L [facility] Creatinine [Mass/Vol] 0.88 mg/dL 0.66 - 1.25 mg/dL [facility] GFR/1.73 sq M.predicted MDRD (S/P/Bld) [Vol rate/Area] - PINF [facility] Comment on above: Calculation based on the Chronic Kidney Disease Epidemiology Collaboration (CKD-EPI) equation refit without adjustment for race Glucose [Mass/Vol] 149 mg/dL High 70 - 100 mg/dL [facility] Interpretation and review of laboratory results Abnormal [facility] th Potassium [Moles/Vol] 4.2 mmol/L 3.5 - 5.1 mmol/L [facility] Sodium [Moles/Vol] 134 mmol/L Low 135 - 145 mmol/L [facility] Urea nitrogen [Mass/Vol] 20 mg/dL 9 - 20 mg/d L [facility] CBC (HEMOGRAM)on 06-03-2023 Erythrocyte distribution width (RBC) [Ratio] 14.3 % Normal 11.5-15.0 [facility] Comment on above: Performed By: #### L [id number] ####[employer] Advisor: ALONZO ALMODOVAR ([phone])[facility])[address] [place] [address] Hematocrit (Bld) [Volume fraction] 32.0 % Low 40.0-52.0 [facility] Comment on above: Performed By: #### L [id number] ####[employer] Advisor: ALONZO ALMODOVAR ([phone])[facility])[address] [place] [address] Hemoglobin (Bld) [Mass/Vol] 10.3 g/dL Low 13.0-18.0 [facility] Comment on above: Performed By: #### L [id number] ####[employer] Advisor: ALONZO ALMODOVAR ([phone])[facility])[address] [place] [address] MCH (RBC) [Entitic mass] 28.8 pg Normal 26.0-34.0 [facility] Comment on above: Performed By: #### L [id number] ####[employer] Advisor: ALONZO ALMODOVAR ([phone])[facility])[address] [place] [address] MCHC 32.2 % Normal 30.5-36.0 [facility] Comment on above: Performed By: #### L [id number] ####[employer] Advisor: ALONZO ALMODOVAR ([phone])[facility])[address] [place] [address] MCV (RBC) [Entitic vol] 89.4 fL Normal 77.0-99.0 [facility] Comment on above: Performed By: #### L [id number] ####[employer] Advisor: ALONZO ALMODOVAR ([phone])[facility])[address] [place] [address] Platelet mean volume (Bld) [Entitic vol] 9.9 fL Normal 9.0-12.7 [facility] Comment on above: Performed By: #### L [id number] ####[employer] Advisor: ALONZO ALMODOVAR ([phone])[facility])[address] [place] [address] Platelets (Bld) [#/Vol] 140 10*3/uL Normal 140-440 [facility] Comment on above: Performed By: #### L [id number] ####[employer] Advisor: ALONZO ALMODOVAR ([phone])[facility] ([facility])[address] [place] [address] RBC (Bld) [#/Vol] 3.58 10*6/uL Low 4.40-5.90 [facility] Comment on above: Performed By: #### L [id number] ####[employer] Advisor: ALONZO ALMODOVAR ([phone])[facility])[address] [place] [address] WBC (Bld) [#/Vol] 7.5 10*3/uL Normal 3.6-10.7 [facility] Comment on above: Performed By: #### L [id number] ####[employer] Advisor: ALONZO ALMODOVAR ([phone])[facility])[address] [place] [address] CBC panel Auto (Bld)on 06-02 Erythrocyte distribution width (RBC) [Ratio] 14.3 % 11.5 - 15.0 % [facility] Hematocrit (Bld) [Volume fraction] 32.0 % Low 40.0 - 52.0 % [facility] Hemoglobin (Bld) [Mass/Vol] 10.3 g/dL Low 13.0 - 18.0 g/dL [facility] Interpretation and review of laboratory results Abnormal [facility] MCH (RBC) [Entitic mass] 28.8 pg 26. 0 - 34.0 pg [facility] MCHC (RBC) [Mass/Vol] 32.2 % 30.5 - 36.0 % [facility] MCV (RBC) [Entitic vol] 89.4 fL 77.0 - 99.0 fL [facility] Platelet mean volume (Bld) [Entitic vol] 9.9 fL 9.0 - 12.7 fL [facility] Platelets (Bld) [#/Vol] 140 10*3/uL 140 - 440 10*3/uL [facility] RBC (Bld) [#/Vol] 3.58 10*6/uL Low 4.40 - 5.9 0 10*6/uL [facility] WBC (Bld) [#/Vol] 7.5 10*3/uL 3.6 - 10.7 10*3/uL [facility] - Chemistry and C hemistry - challengeon 06-03-2023 Glucose [Mass/Vol] 119 mg/dL High 70 - 100 mg/dL [facility] Magnesium [Mass/Vol] 2.2 mg/dL 1.6 - 2 .3 mg/dL [facility] - Coagulationon 0 06-03-2023 aPTT Coag (PPP) [Time] 27.4 s 20.0 - 30.5 s [facility] INR Coag (PPP) [Relative time] 1.1 {INR} 0.9 - 1.1 [facility] Comment on above: Recommended Anticoag ulant Therapy: [...] [Time] 11.2 s 9.0 - 12.0 s [facility] MAGNESIUMon 06-03-2023 Magnesium [Mass/Vol] 2.2 mg/dL Normal 1.6-2.3 [facility] Comment on above: Performed By: #### L [id number], [id number] ####[employer] Advisor: ALONZO ALMODOVAR ([phone])[facility] ([facility])[address] [place] [address] Magnesium [Mass/Vol]on 06-02 Interpretation and review of laboratory results Normal [facility] No Panel Informationon 06-02 Interpretation and review of laboratory results Abnormal [facility] Performed by: [facility], [address] [place] [address] CLIA ID: [id number] [facility] Interpretation and review of laboratory results Normal [facility] Radiology Study observation (narrative) Albert rosado PROTIME AND APTTon aPTT Coag (Bld) [Time] 27.4 s Normal 20.0-30.5 [facility] Comment on above: Performed By: #### L [id number] ####[employer] Advisor: ALONZO ALMODOVAR ([phone])[facility] ([facility])[address] [place] [address] INR Coag (PPP) [Relative time] 1.1 {INR} Normal 0.9-1.1 [facility] Comment on above: Result Comment: Kam mmended [...] prevent Myocardial Infarction Performed By: #### L [id number] ####[employer] Advisor: ALONZO ALMODOVAR ([phone])[facility] ([facility])[address] [place] [address] PT Coag (PPP) [Time] 11.2 s Normal 9.0-12.0 [facility] Comment on above: Performed By: #### L [id number] ####[employer] Advisor: ALONZO ALMODOVAR ([phone])[facility] ([facility])[address] [place] [address] Progress Noteon 06-03-2023 Progress Note PHYSICAL THERAPY [facility] Treatment Note Name/MRN: Terry Lacy ([id number]) Date of : 1960 Age: 62 y.o. [...] Treatment Minutes: (1 gait) Lynnette Lira, PT [facility] Progress Note Department of Internal Medicine Division of Endocrinology, Diabetes, & Metabolism Endocrinology Note Patient Name: Sylvester Lacy : 1960 AGE: 62 y.o. Room/Bed: T1-124/T1-124 A Admission Date: 05/31/2023 Visit Date: 06/03/2023 Reason for Endocrine Consult: Severe MV-CAD s/p CABG Provider/Team Requesting Consult: Darion Lopes APRN-CORE MAN PCP: Crissy Engle DO Outpt Manager Of Health: No ASSESSMENT: Prediabetes/stress hyperglycemia Severe MV-CAD s/p [...] and Oth (more content not included)... Normal [facility] Progress Note Attestation signed by Susan Covington DO at 06/04/2023 1:30 PM (Updated) I have personally performed a [id number] diagnostic evaluation on this patient on date of service 06/03/23. History, labs, imaging studies, and electronic medical record have been reviewed by me. This note documented by the []lodging house keeper [x]MATTY reflects my history, exam, and medical [...] DATE: 06/03/23 HPI: 62 y.o. 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 Pmhx including RCA and [...] note patient lives alone at home. 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 XR CHEST 1 VIEWon 06-03-2023 XR CHEST [...] DO Electronically Signed Date/Time: 06/03/2023 7:17 AM [facility] XR Chest Single viewon 06-02 1. Lines/ [...] DO Electronically Signed Date/Time: 06/03/2023 7:17 AM [facility] Patient Name: SYLVESTER LACY : 1960 Exam Date/Time: 06/03/2023 05:23 Procedure: XR CHEST 1 VIEW Ordering Provider: LOPES ANDREW Reason For Exam: Shortness of breath PORTABLE CHEST CLINICAL INDICATION: Dyspnea. COMPARISON: 06/02/2023. TECHNIQUE: A single frontal view of thorax was obtained and reviewed. [facility] Kranthi Lynch DO - 06/03/2023 Patient Name: SYLVESTER LACY : 1960 [id number] Exam Date/Time: 06/03/2023 05:23 Procedure: XR CHEST [...] arthrosis. Report Dictated on Electronically Signed By: Karnthi Lynch DO Electronically Signed Date/Time: 06/03/2023 7:17 AM EST [facility] Radiology Study observation (narrative) [facility] XR Chest Single viewOrdered By: Kranthi Lynch on 06-03-2023 [facility] Work Phone: BASIC METABOLIC PANELon 03-0 Anion gap [Moles/Vol] 7 mmol/L Normal 3-13 [facility] Comment on above: Performed By: #### L AB15, [id number] #### [employer] Advisor: ALONZO ALMODOVAR ([phone]) [facility] ([facility]) [address] [place] [address] Calcium [Mass/Vol] 7.9 mg/dL Low 8.4-10.4 [facility] Comment on above: Performed By: #### L AB15, [id number] #### [employer] Advisor: ALONZO ALMODOVAR ([phone]) [facility] ([facility]) [address] [place] [address] Chloride [Moles/Vol] 107 mmol/L Normal 98-107 [facility] Comment on above: Performed By: #### L AB15, [id number] #### [employer] Advisor: ALONZO ALMODOVAR ([phone]) [facility] ([facility]) [address] [place] [address] CO2 [Moles/Vol] 22 mmol/L Normal 22-30 [facility] Comment on above: Performed By: #### L AB15, [id number] #### [employer] Advisor: ALONZO ALMODOVAR ([phone]) [facility] ([facility]) [address] [place] [address] Creatinine [Mass/Vol] 0.83 mg/dL Normal 0.66-1.25 [facility] Comment on above: Performed By: #### L AB15, [id number] #### [employer] Advisor: ALONZO ALMODOVAR ([phone]) [facility] ([facility]) [address] [place] [address] GLOMERULAR FILTRATION RATE ML/MIN/1.73 SQ M.PREDICTED >90.0 Normal >60.0 [facility] Comment on above: Result Comment: Calc ulation based on the Chronic Kidney Disease Epidemiology Collaboration (CKD-EPI) equation refit without adjustment for race Performed By: #### L AB15, [id number] #### [employer] Advisor: ALONZO ALMODOVAR ([phone]) [facility] ([facility]) [address] [place] [address] Glucose [Mass/Vol] 111 mg/dL High 70-100 [facility] Comment on above: Performed By: #### L AB15, [id number] #### [employer] Advisor: ALONZO ALMODOVAR ([phone]) [facility] ([facility]) [address] [place] [address] [place] Potassium [Moles/Vol] 4.5 mmol/L Normal 3.5-5.1 [facility] Comment on above: Performed By: #### L AB15, [id number] #### [employer] Advisor: ALONZO ALMODOVAR ([phone]) [facility] ([facility]) [address] [place] [address] [place] Sodium [Moles/Vol] 136 mmol/L Normal 135-145 [facility] Comment on above: Performed By: #### L AB15, [id number] #### [employer] Advisor: ALONZO ALMODOVAR ([phone]) [facility] ([facility]) [address] [place] [address] Urea nitrogen [Mass/Vol] 17 mg/dL Normal 9-20 [facility] Comment on above: Performed By: #### L AB15, [id number] #### [employer] Advisor: ALONZO ALMODOVAR ([phone]) [facility] ([facility]) [address] [place] [address] Basic metabolic 1998 panelon 06-02-2023 Anion gap [Moles/Vol] 7 mmol/L 3 - 13 mmol/L [facility] Calcium [Mass/Vol] 7.9 mg/dL Low 8.4 - 10. 4 mg/dL [facility] Chloride [Moles/Vol] 107 mmol/L 98 - 10 7 mmol/L [facility] CO2 [Moles/Vol] 22 mmol/L 22 - 30 mmol/L [facility] Creatinine [Mass/Vol] 0.83 mg/dL 0.66 - 1.25 mg/dL [facility] GFR/1.73 sq M.predicted MDRD (S/P/Bld) [Vol rate/Area] - PINF [facility] Comment on above: Calculation based on the Chronic Kidney Disease Epidemiology Collaboration (CKD-EPI) equation refit without adjustment for race Glucose [Mass/Vol] 111 mg/dL High 70 - 100 mg/dL [facility] Interpretation and review of laboratory results Abnormal [facility] Potassium [Moles/Vol] 4.5 mmol/L 3.5 - 5.1 mmol/L [facility] Sodium [Moles/Vol] 136 mmol/L 135 - 145 mmol/L [facility] Urea nitrogen [Mass/Vol] 17 mg/dL 9 - 20 mg/d L [facility] CALCIUM, IONIZEDon CALCIUM IONIZED 4.00 mg/dL Low 4.30-5.20 [facility] Comment on above: Order Comment: Obtai n PRN and check ionized Ca level if serum Ca level less than 8.0 Performed By: #### L AB54 #### [employer] Advisor: ALONZO ALMODOVAR ([phone]) [facility] ([facility]) [address] [place] [address] PH, IONIZED CALCIUM 7.42 Normal 7.31-7.46 [facility] Comment on above: Order Comment: Obtai n PRN and check ionized Ca level if serum Ca level less than 8.0 Performed By: #### L AB54 #### [employer] Advisor: ALONZO ALMODOVAR ([phone]) [facility] ([facility]) [address] [place] [address] [place]Don 06-02-2023 [place] Care Managment Initial Assessment Date: 06/02/2023 Patient Name: Sylvester Lacy : 1960 Patient Information Source of Information: Patient Cognition/Language: WFL - Within Functional Limits Permission given to speak with patient national account representative/careg iver as indicated: Yes Confirmation of Payer with patient/family: Yes P[place] Name: [place]: Yes () Confirmation of Primary Care Physician: [...] Daily Living Prescription Coverage: No Pharmacy Used: [place] [facility] Medication Management: Independent Transportation/Shopp [...] has PCP but no prescription coverage-uses the [employer] or [facility], will have a ride home but concerned with home going alone and agreeable to SNF ([facility]) if recommended by therapy. Daphne Chou RN Normal [facility] CBC (HEMOGRAM)on 06-02-2023 Erythrocyte distribution width (RBC) [Ratio] 14.2 % Normal 11.5-15.0 [facility] Comment on above: Performed By: #### L [id number] ####[employer] Advisor: ALONZO ALMODOVAR ([phone])[address] Hematocrit (Bld) [Volume fraction] 29.7 % Low 40.0-52.0 [facility] Comment on above: Performed By: #### L [id number] ####[employer] Advisor: ALONZO ALMODOVAR ([phone])[address] Hemoglobin (Bld) [Mass/Vol] 9.8 g/dL Low 13.0-18.0 [facility] Comment on above: Performed By: #### L [id number] ####[employer] Advisor: ALONZO ALMODOVAR ([phone])[address] MCH (RBC) [Entitic mass] 29.0 pg Normal 26.0-34.0 [facility] Comment on above: Performed By: #### L AB294 ####[employer] Advisor: ALONZO [phone])[address] MCHC 33.0 % Normal 30.5-36.0 [facility] Comment on above: Performed By: #### L AB294 ####[employer] Advisor: ALONZO [phone])[facility] ([facility])[address] [place] [address] MCV (RBC) [Entitic vol] 87.9 fL Normal 77.0-99.0 [facility] Comment on above: Performed By: #### L AB294 ####[employer] Advisor: ALONZO ALMODOVAR ([phone])[facility])[address] [place] [address] Platelet mean volume (Bld) [Entitic vol] 9.8 fL Normal 9.0-12.7 [facility] Comment on above: Performed By: #### L AB294 ####[employer] Advisor: ALONZO ALMODOVAR ([phone])[facility])[address] [place] [address] Platelets (Bld) [#/Vol] 146 10*3/uL Normal 140-440 [facility] Comment on above: Performed By: #### L AB294 ####[employer] Advisor: ALONZO ALMODOVAR ([phone])[facility])[address] [place] [address] RBC (Bld) [#/Vol] 3.38 10*6/uL Low 4.40-5.90 [facility] Comment on above: Performed By: #### L AB294 ####[employer] Advisor: ALONZO ALMODOVAR ([phone])[facility])[address] [place] [address] WBC (Bld) [#/Vol] 8.1 10*3/uL Normal 3.6-10.7 [facility] Comment on above: Performed By: #### L AB294 ####[employer] Advisor: ALONZO ALMODOVAR ([phone])[facility])[address] [place] [address] CBC panel Auto (Bld)on 06-01 Erythrocyte distribution width (RBC) [Ratio] 14.2 % 11.5 - 15.0 % [facility] Hematocrit (Bld) [Volume fraction] 29.7 % Low 40.0 - 52.0 % [facility] Hemoglobin (Bld) [Mass/Vol] 9.8 g/dL Low 13.0 - 18.0 g/dL [facility] Interpretation and review of laboratory results Abnormal [facility] MCH (RBC) [Entitic mass] 29.0 pg 26. 0 - 34.0 pg [facility] MCHC (RBC) [Mass/Vol] 33.0 % 30.5 - 36.0 % [facility] MCV (RBC) [Entitic vol] 87.9 fL 77.0 - 99.0 fL [facility] Platelet mean volume (Bld) [Entitic vol] 9.8 fL 9.0 - 12.7 fL [facility] Platelets (Bld) [#/Vol] 146 10*3/uL 140 - 440 10*3/uL [facility] RBC (Bld) [#/Vol] 3.38 10*6/uL Low 4.40 - 5.9 0 10*6/uL [facility] WBC (Bld) [#/Vol] 8.1 10*3/uL 3.6 - 10.7 10*3/uL [facility] Calcium.ionized [Moles/Vol]O rdered By: Augustin Pulido on 06-02-2023 Calcium.ionized (Bld) [Moles/Vol] 4.00 mg/dL Low 4.30 - 5.20 mg/dL [facility] Interpretation and review of laboratory results Abnormal [facility] PH, IONIZED CALCIUM 7.42 7.31 - 7.46 [facility] ECG 12-LEADon 06-02-2023 ECG 12-LEAD IMPRESSION: Sinus rhythm Left axis deviation Electronically Signed On 06-02-2023 11:23:32 EST by [facility] ECG 12-LEAD IMPRESSION: Sinus rhythm Left axis deviation Electronically Signed On 06-02-2023 11:20:32 EST by [facility] ECG 12-LEAD IMPRESSION: Sinus rhythm Borderline left axis deviation Electronically Signed On 06-02-2023 09:21:08 EST by [facility] ECG 12-LEAD IMPRESSION: Sinus rhythm ST elevation suggests acute pericarditis Electronically Signed On 06-02-2023 09:06:19 EST by [facility] Laboratory - Chemistry and C hemistry - challengeon 06-02-2023 Glucose [Mass/Vol] 125 mg/dL High 70 - 100 mg/dL [facility] Glucose [Mass/Vol] 110 mg/dL High 70 - 100 mg/dL [facility] Glucose [Mass/Vol] 111 mg/dL High 70 - 100 mg/dL [facility] Glucose [Mass/Vol] 99 mg/dL 70 - 100 mg/dL [facility] Glucose [Mass/Vol] 117 mg/dL High 70 - 100 mg/dL [facility] Magnesium [Mass/Vol] 2.2 mg/dL 1.6 - 2 .3 mg/dL [facility] Glucose [Mass/Vol] 115 mg/dL High 70 - 100 mg/dL [facility] Laboratory - Coagulationon 0 06-02-2023 aPTT Coag (PPP) [Time] 31.6 s High 20.0 - 30.5 s [facility] INR Coag (PPP) [Relative time] 1.2 {INR} High 0.9 - 1.1 [facility] Comment on above: Recommended Anticoag ulant Therapy: [...] 12.2 s High 9.0 - 12.0 s [facility] MAGNESIUMon 06-02-2023 Magnesium [Mass/Vol] 2.2 mg/dL Normal 1.6-2.3 [facility] Comment on above: Performed By: #### L AB15, [id number] #### [employer] Advisor: ALONZO ALMODOVAR ([phone]) [facility] ([facility]) [address] [place] [address] Magnesium [Mass/Vol]on 06-01 Interpretation and review of laboratory results Normal [facility] No Panel Informationon 06-01 Interpretation and review of laboratory results Abnormal [facility] Performed by: [facility], [address] [place] [address], [place] [id number] [place] ID: [id number] [facility] Sinus rhythm Left axis deviation Electronically Signed On 06-02-2023 11:23:32 EST by Chaparro Horner MD - 06/02/2023 IMPRESSION: Sinus rhythm Left axis deviation Electronically Signed On 06-02-2023 11:23:32 EST by Chaparro Dos Santos [facility] P [place] 73 degrees [facility] PA Interval 160 ms [facility] QRS [place] -34 degrees [facility] QRSD Interval 99 ms [facility] QT Interval 426 ms [facility] QTC Interval 444 ms [facility] T Wave [place] 14 degrees [facility] Sinus rhythm Left axis deviation Electronically Signed On 06-02-2023 11:20:32 EST by Chaparro Horner MD - 06/02/2023 IMPRESSION: Sinus rhythm Left axis deviation Electronically Signed On 06-02-2023 11:20:32 EST by Chaparro Dos Santos [facility] P [place] 51 degrees [facility] PA Interval 181 ms [facility] QRS [place] -29 degrees [facility] QRSD Interval 86 ms [facility] QT Interval 394 ms [facility] QTC Interval 458 ms [facility] T Wave [place] -1 degrees [facility] Sinus rhythm Borderline left axis deviation Electronically Signed On 06-02-2023 09:21:08 EST by Chaparro Horner MD - 06/02/2023 IMPRESSION: Sinus rhythm Borderline left axis deviation Electronically Signed On 06-02-2023 09:21:08 EST by Chaparro Dos Santos [facility] P [place] 49 degrees [facility] PA Interval 166 ms [facility] QRS [place] -13 degrees [facility] QRSD Interval 85 ms [facility] QT Interval 378 ms [facility] QTC Interval 443 ms [facility] T Wave [place] 10 degrees [facility] Sinus rhythm ST elevation suggests acute pericarditis Electronically Signed On 06-02-2023 09:06:19 EST by Chaparro Dos Santos CV Chaparro Francisco MD - 06/02/2023 IMPRESSION: Sinus rhythm ST elevation suggests acute pericarditis Electronically Signed On 06-02-2023 09:06:19 EST by Chaparro Dos Santos [facility] Interpretation and review of laboratory results Abnormal [facility] Performed by: [facility], [address] [place] [address] CLIA ID: [id number] [facility] Interpretation and review of laboratory results Abnormal [facility] Performed by: [facility], [address] [place] [address], [facility] [address] CLIA ID: [id number] [facility] Interpretation and review of laboratory results Normal [facility] Performed by: [facility], [address] [place] [address] CLIA ID: [id number] [facility] Interpretation and review of laboratory results Abnormal [facility] Performed by: [facility], [address] [place] [address] CLIA ID: [id number] [facility] Interpretation and review of laboratory results Abnormal [facility] Interpretation and review of laboratory results Abnormal [facility] Performed by: [facility], [address] [place] [address] CLIA ID: [id number] [facility] Radiology Study observation (narrative) [facility] Rad[facility] Study observation (narrative) [facility] Rad[facility] Study observation (narrative) [facility] Radiology Study observation (narrative) [facility] Radiology Study observation (narrative) [facility] Radiology Study observation (narrative) [facility] No Panel InformationOrdered By: Chaparro Dos Santos on 06-02-2023 P [place] 22 degrees [facility] Work Phone: PA Interval 164 ms [facility] Work Phone: QRS [place] -32 degrees [facility] Work Phone: QRSD Interval 103 ms [facility] h Work Phone: QT Interval 430 ms [facility] Work Phone: QTC Interval 450 ms [facility] Work Phone: T Wave [place] 12 degrees [facility] Work Phone: [facility] Work Phone: PROTIME AND APTTon 4 aPTT Coag (Bld) [Time] 31.6 s High 20.0-30.5 [facility] Comment on above: Performed By: #### Sebastien AB15, [id number] #### [employer] Advisor: ALONZO ALMODOVAR ([phone]) [facility]) [address] [place] [address] INR Coag (PPP) [Relative time] 1.2 {INR} High 0.9-1.1 [facility] Comment on above: Result Comment: Kam mmended [...] Myocardial Infarction Performed By: #### Sebastien LANTIGUA15, [id number] #### [employer] Advisor: ALONZO ALMODOVAR ([phone]) [facility]) [address] [place] [address] PT Coag (PPP) [Time] 12.2 s High 9.0-12.0 [facility] Comment on above: Performed By: #### Sebastien AB15, [id number] #### [employer] Advisor: ALONZO ALMODOVAR ([phone]) [facility]) [address] [place] [address] Progress Noteon 06-02-2023 Progress Note Attestation signed [...] s/p CABG Provider/Team Requesting Consult: Darion Lopes APRN-CORE MAN PCP: Crissy Engle DO Outpt Manager Of Health: No ASSESSMENT: Prediabetes (A1c 6.2%) Severe Multivessel CAD s/p CABG Hx of [place] s/p stent to RCA and PDA in [...] congestion. Mouth/ (more content not included)... Normal [facility] Progress Note Attestation signed by Susan Covington DO at 06/02/2023 5:39 PM I have personally performed a [id number] diagnostic evaluation on this patient on date of service 06/02/23. History, labs, imaging studies, and electronic medical record have been reviewed by me. This note documented by the []lodging house keeper [x]MATTY reflects my history, exam, and medical [...] able. Plan to dc art line and [place] once off levophed -nitroglycerin gtt transitioned to [facility], will need CCBx30 days for radial [...] DATE: 06/02/23 HPI: 62 y.o. 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 Pmhx including RCA and [...] note patient lives alone at home. 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 Comments: [facility] Intact RIJ [place] Right EVH Left radial artery harvest Neurological: Mental Status: He is alert. Psychiatric: Behavior: Behavior is cooperative. Assessment: MVCAD s/p CABGx5 05/31/23 Hx NSVT HLD HTN ETOH use Former Tobacco use Post operative Pulm Management: Normal Post-operative Course Post-operative Atrial Fib (more content not included)... Normal [facility] Vital signsOrdered By: Edenilson Dos Santos on 06-02-2023 Heart rate 66 /min bpm [employer] Work Phone: Vital signson 06-02-2023 Heart rate 65 /min bpm [employer] Heart rate 81 /min bpm [employer] Heart rate 82 /min bpm [employer] XR CHEST 1 VIEWon 06-02-2023 XR CHEST 1 VIEW Patient Name: SYLVESTER LACY : 1960 [id number] Exam Date/Time: 06/02/2023 05:16 Procedure: XR CHEST [...] are similar to last exam.. Tip of [place]-Koki catheter overlies the tip of the main pulmonary trunk. There is no sizable pneumothorax or other significant interval change. Report Dictated on Electronically Signed By: Calderon Salmeron MD Electronically Signed Date/Time: 06/02/2023 8:57 AM EST Normal [facility] XR Chest Single viewon 06-01 Patient Name: [...] are similar to last exam.. Tip of [place]-Koki catheter overlies the tip of the main pulmonary trunk. There is no sizable pneumothorax or other significant interval change. Report Dictated on Electronically Signed By: Calderon Salmeron MD Electronically Signed Date/Time: 06/02/2023 8:57 AM [facility] Calderon Salmeron MD - 06/02/2023 Patient [...] are similar to last exam.. Tip of [place] catheter overlies the tip of the main pulmonary trunk. There is no sizable pneumothorax or other significant interval change. Report Dictated on Electronically Signed By: Calderon Salmeron MD Electronically Signed Date/Time: 06/02/2023 8:57 AM EST [facility] Radiology Study observation (narrative) [facility] XR Chest Single viewOrdered By: Calderon Salmeron on 06-02-2023 [facility] Work Phone: [phone] 06-01-2023 [id number] Psychologist Engineering following case for Discharge Needs. Normal [facility] BASIC METABOLIC PANELon Anion gap [Moles/Vol] 7 mmol/L Normal 3-13 [facility] Comment on above: Performed By: #### L AB15, [id number] #### [employer] Development Advisor: ALONZO LAMODOVAR ([phone]) [facility] [address] [place] [address] [place] Calcium [Mass/Vol] 8.7 mg/dL Normal 8.4-10.4 [facility] Comment on above: Performed By: #### L AB15, [id number] #### [employer] Advisor: ALONZO ALMODOVAR ([phone]) [facility] ([facility]) [address] [place] [address] [place] Chloride [Moles/Vol] 109 mmol/L High 98-107 [facility] Comment on above: Performed By: #### L AB15, [id number] #### [employer] Advisor: ALONZO ALMODOVAR ([phone]) [facility] ([facility]) [address] [place] [address] [place] CO2 [Moles/Vol] 23 mmol/L Normal 22-30 [facility] Comment on above: Performed By: #### L AB15, [id number] #### [employer] Advisor: ALONZO ALMODOVAR ([phone]) [facility] ([facility]) [address] [place] [address] [place] Creatinine [Mass/Vol] 0.79 mg/dL Normal 0.66-1.25 [facility] Comment on above: Performed By: #### L AB15, [id number] #### [employer] Advisor: ALONZO ALMODOVAR ([phone]) [facility] [address] [place] [address] GLOMERULAR FILTRATION RATE ML/MIN/1.73 SQ M.PREDICTED >90.0 Normal >60.0 [facility] Comment on above: Result Comment: Calc ulation based on the Chronic Kidney Disease Epidemiology Collaboration (CKD-EPI) equation refit without adjustment for race Performed By: #### L AB15, [id number] #### [employer] Advisor: ALONZO ALMODOVAR ([phone]) [facility]) [address] [place] [address] Glucose [Mass/Vol] 118 mg/dL High 70-100 [facility] Comment on above: Performed By: #### L AB15, [id number] #### [employer] Advisor: ALONZO ALMODOVAR ([phone]) [facility]) [address] [place] [address] Potassium [Moles/Vol] 4.3 mmol/L Normal 3.5-5.1 [facility] Comment on above: Performed By: #### L AB15, [id number] #### [employer] Advisor: ALONZO ALMODOVAR ([phone]) [facility] ([facility]) [address] [place] [address] Sodium [Moles/Vol] 139 mmol/L Normal 135-145 [facility] Comment on above: Performed By: #### L AB15, [id number] #### [employer] Advisor: ALONZO ALMODOVAR ([phone]) [facility] ([facility]) [address] [place] [address] Urea nitrogen [Mass/Vol] 14 mg/dL Normal 9-20 [facility] Comment on above: Performed By: #### L AB15, [id number] #### [employer] Advisor: ALONZO ALMODOVAR ([phone]) [facility]) [address] [place] [address] BLOOD GAS ARTERIALon 024 Base excess Calc (Bld) [Moles/Vol] -1.3000 mmol/L Normal -3.0-3.0 [facility] Comment on above: Performed By: #### L AB76 ####[employer] Advisor: ALONZO ALMODOVAR ([phone])[facility] ([facility])[address] [place] [address] [place] CO2 [Moles/Vol] 25.0 mmol/L Normal 23.0-27.0 [facility] Comment on above: Performed By: #### L AB76 ####[employer] Development Advisor: ALONZO ALMODOVAR ([phone])[facility] [place] [address] HCO3 (Bld) [Moles/Vol] 23.7 mmol/L Normal 21.0-25.0 [facility] Comment on above: Performed By: #### L AB76 ####[employer] Development Advisor: ALONZO ALMODOVAR ([phone])[facility] [place] [address] Hemoglobin (Bld) [Mass/Vol] 10.4 g/dL Normal Screen Only [facility] Comment on above: Performed By: #### L AB76 ####[employer] Advisor: ALONZO ALMODOVAR ([phone])[facility] [place] [address] OXYGEN SATURATION (%) IN ARTERIAL BLOOD 98.7 % Normal 95.0-100.0 [facility] Comment on above: Performed By: #### L AB76 ####[employer] Development Advisor: ALONZO ALMODOVAR ([phone])[facility] [place] [address] PCO2 ARTERIAL 41.0 mm Hg Normal >35.0-<45.0 [facility] Comment on above: Performed By: #### L AB76 ####[employer] Advisor: ALONZO ALMODOVAR ([phone])[facility] [place] [address] PH ARTERIAL 7.380 Normal 7.350-7.450 [facility] Comment on above: Performed By: #### L AB76 ####[employer] Development Advisor: ALONZO ALMODOVAR ([phone])[facility] [place] [address] PO2 ARTERIAL 216.3 mm Hg High 80.0-100.0 [facility] Comment on above: Performed By: #### L AB76 ####[employer] Development Advisor: ALONZO ALMODOVAR ([phone])[facility] ([facility])[address] [place] [address] SOURCE OF OXYGEN Vent Normal [facility] Comment on above: Result Comment: 100% Performed By: #### L AB76 ####[employer] Development Advisor: ALONZO ALMODOVAR ([phone])[facility] ([facility])[address] [place] [address] Basic metabolic 1998 panelon 06-01-2023 Anion gap [Moles/Vol] 7 mmol/L 3 - 13 mmol/L [facility] Calcium [Mass/Vol] 8.7 mg/dL 8.4 - 10. 4 mg/dL [facility] Chloride [Moles/Vol] 109 mmol/L High 98 - 10 7 mmol/L [facility] CO2 [Moles/Vol] 23 mmol/L 22 - 30 mmol/L [facility] Creatinine [Mass/Vol] 0.79 mg/dL 0.66 - 1.25 mg/dL [facility] GFR/1.73 sq M.predicted MDRD (S/P/Bld) [Vol rate/Area] - PINF [facility] Comment on above: Calculation based on the Chronic Kidney Disease Epidemiology Collaboration (CKD-EPI) equation refit without adjustment for race Glucose [Mass/Vol] 118 mg/dL High 70 - 100 mg/dL [facility] Potassium [Moles/Vol] 4.3 mmol/L 3.5 - 5.1 mmol/L [facility] Sodium [Moles/Vol] 139 mmol/L 135 - 145 mmol/L [facility] Urea nitrogen [Mass/Vol] 14 mg/dL 9 - 20 mg/d L [facility] CALCIUM, IONIZEDon 4 CALCIUM IONIZED 4.80 mg/dL Normal 4.30-5.20 [facility] Comment on above: Performed By: #### L AB54 ####[employer] Advisor: ALONZO ALMODOVAR ([phone])[facility])[address] [place] [address] PH, IONIZED CALCIUM 7.37 Normal 7.31-7.46 [facility] Comment on above: Performed By: #### L AB54 ####[employer] Development Advisor: ALONZO ALMODOVAR ([phone])[facility])[address] [place] [address] CBC (HEMOGRAM)on 06-01-2023 Erythrocyte distribution width (RBC) [Ratio] 14.2 % Normal 11.5-15.0 [facility] Comment on above: Performed By: #### L [id number] ####[employer] Advisor: ALONZO ALMODOVAR ([phone])[facility])[address] [place] [address] Hematocrit (Bld) [Volume fraction] 27.1 % Low 40.0-52.0 [facility] Comment on above: Performed By: #### L [id number] ####[employer] Advisor: ALONZO ALMODOVAR ([phone])[address] Hemoglobin (Bld) [Mass/Vol] 8.9 g/dL Low 13.0-18.0 [facility] Comment on above: Performed By: #### L [id number] ####[employer] Advisor: ALONZO ALMODOVAR ([phone])[address] MCH (RBC) [Entitic mass] 29.2 pg Normal 26.0-34.0 [facility] Comment on above: Performed By: #### L [id number] ####[employer] Advisor: ALONZO ALMODOVAR ([phone])[address] MCHC 32.8 % Normal 30.5-36.0 [facility] Comment on above: Performed By: #### L [id number] ####[employer] Development Advisor: ALONZO ALMODOVAR ([phone])[address] MCV (RBC) [Entitic vol] 88.9 fL Normal 77.0-99.0 [facility] Comment on above: Performed By: #### L [id number] ####Manpower Development Advisor: ALONZO [phone])[facility] ([facility])[address] [place] [address] Platelet mean volume (Bld) [Entitic vol] 10.1 fL Normal 9.0-12.7 [facility] Comment on above: Result Comment: ROGER Denise COMMENTS: Patient is/was in surgery. CORONARY ARTERY BYPASS GRAFT, TRANSESOPHAGEAL ECHOCARDIOGRAM Performed By: #### L [id number] ####[employer] Development Advisor: ALONZO ALMODOVAR ([phone])[facility] ([facility])[address] [place] [address] Platelets (Bld) [#/Vol] 136 10*3/uL Low 140-440 [facility] Comment on above: Performed By: #### L AB294 ####Manpower Development Advisor: ALONZO ALMODOVAR ([phone])[facility] ([facility])[address] [place] [address] RBC (Bld) [#/Vol] 3.05 10*6/uL Low 4.40-5.90 [facility] Comment on above: Performed By: #### L [id number] ####[employer]power Development Advisor: ALONZO ALMODOVAR ([phone])[facility] ([facility])[address] [place] [address] WBC (Bld) [#/Vol] 5.6 10*3/uL Normal 3.6-10.7 [facility] Comment on above: Performed By: #### L [id number] ####[employer] Development Advisor: ALONZO ALMODOVAR ([phone])[facility])[address] [place] [address] CBC panel Auto (Bld)Ordered By: Iain Alcocer on 06-01-2023 Erythrocyte distribution width (RBC) [Ratio] 14.2 % 11.5 - 15.0 % [facility] Hematocrit (Bld) [Volume fraction] 27.1 % Low 40.0 - 52.0 % [facility] Hemoglobin (Bld) [Mass/Vol] 8.9 g/dL Low 13.0 - 18.0 g/dL [facility] Interpretation and review of laboratory results Abnormal [facility] MCH (RBC) [Entitic mass] 29.2 pg 26. 0 - 34.0 pg [facility] MCHC (RBC) [Mass/Vol] 32.8 % 30.5 - 36.0 % [facility] MCV (RBC) [Entitic vol] 88.9 fL 77.0 - 99.0 fL [facility] Platelet mean volume (Bld) [Entitic vol] 10.1 fL 9.0 - 12.7 fL [facility] Platelets (Bld) [#/Vol] 136 10*3/uL Low 140 - 440 10*3/uL [facility] RBC (Bld) [#/Vol] 3.05 10*6/uL Low 4.40 - 5.9 0 10*6/uL [facility] WBC (Bld) [#/Vol] 5.6 10*3/uL 3.6 - 10.7 10*3/uL [facility] Patient is/was in surgery. CORONARY ARTERY BYPASS GRAFT, TRANSESOPHAGEAL ECHOCARDIOGRAM [facility] CT CHEST WO IV CONTRASTon CT CHEST [...] assess aorta prior to open heart surgery Normal [facility] CT Chest WO contraston 05-31 The aorta is approximately 2.3 cm posterior to the sternum at the level of the aortic arch which is the closest proximity. There are mild atherosclerotic calcifications of the aorta without aneurysmal dilatation. Additional findings as described. Report Dictated on Electronically Signed By: Mitch Pierson MD Electronically Signed Date/Time: 06/01/2023 9:26 AM [facility] Patient Name: SYLVESTER LACY : 1960 [...] osseous lesions. Mild multilevel discogenic degenerative changes. [facility] Mitch Pierson MD - 06/01/2023 Patient Name: SYLVESTER LACY : 1960 [id number] Exam Date/Time: 05/31/2023 16:53 Procedure: CT CHEST [...] Electronically Signed Date/Time: 06/01/2023 9:26 AM EST [facility] [address] Chest WO contrastOrdered By: Mitch Pierson on 06-01-2023 [facility] Work Phone: Calcium.ionized [Moles/Vol]o n 06-01-2023 Calcium.ionized (Bld) [Moles/Vol] 4.80 mg/dL 4.30 - 5.20 mg/dL [facility] Interpretation and review of laboratory results Normal [facility] PH, IONIZED CALCIUM 7.37 7.31 - 7.46 [facility] [employer] Consulton 06-01-2023 Consult Attestation signed by Janice [...] for DM. M with DM. [place]es [place]. Diet is high in fat; does not [...] Lacy : 1960 AGE: 62 y.o. Room[facility]: [facility] A Admission Date: 05/31/2023 Visit Date: 06/01/2023 Reason for Endocrine Consult: Post Op Heart Surgery Provider/Team Requesting Consult: Darion Lopes APRN-CORE MAN PCP: Crissy Engle DO Outpt Manager Of Health: No ASSESSMENT: Severe Multivessel CAD s/p CABG Prediabetes (A1c 6.2%) Hx of KS s/p stent to RCA and PDA in [...] CAD with symptoms of Unstable Angina Terry Lacy is a 62 yo male with a past medical history of severe triple-vessel disease noted on heart cath (05/19/23), hx of inferior KS s/p stent to RCA and PDA (2008), hx of PE, hx of NSVT, hypertension, former smoker, hx of alcohol use who [place] [facility] [place]. [facility] [...] chronic steroid use. Biological mother with diabetes tre. Glucose Date/Time Value Ref Range Status 06/01/2023 [...] Movements: Extraocula (more content not included)... Normal [facility] FIBRINOGENon 06-01-2023 FIBRINOGEN 160 mg/dL Low 200-400 [facility] Comment on above: Performed By: #### L [id number], [id number] ####[employer] Development Advisor: ALONZO ALMODOVAR ([phone])[facility] ([facility])[address] [place] [address] Fibrinogen Coag (PPP) [Mass/ Vol]Ordered By: Karyn Weldon on 06-01-2023 Interpretation and review of laboratory results Abnormal [facility] Laboratory - Chemistry and C hemistry - challengeon 06-01-2023 Glucose [Mass/Vol] 116 mg/dL High 70 - 100 mg/dL [facility] Glucose [Mass/Vol] 118 mg/dL High 70 - 100 mg/dL [facility] Glucose [Mass/Vol] 105 mg/dL High 70 - 100 mg/dL [facility] Glucose [Mass/Vol] 106 mg/dL High 70 - 100 mg/dL [facility] Glucose [Mass/Vol] 112 mg/dL High 70 - 100 mg/dL [facility] Glucose [Mass/Vol] 121 mg/dL High 70 - 100 mg/dL [facility] Glucose [Mass/Vol] 140 mg/dL High 70 - 100 mg/dL [facility] Glucose [Mass/Vol] 100 mg/dL 70 - 100 mg/dL [facility] Magnesium [Mass/Vol] 2.9 mg/dL High 1.6 - 2 .3 mg/dL [facility] Glucose [Mass/Vol] 102 mg/dL High 70 - 100 mg/dL [facility] Laboratory - Chemistry and C hemistry - challengeOrdered By: Pineda Sanders on 06-01-2023 Base excess Calc (Bld) [Moles/Vol] -1.3000 mmol/L -3.0 - 3.0 mmol/L [facility] CO2 (Bld) [Partial pressure] 41.0 mm[Hg] - PINF [facility] CO2 [Moles/Vol] 25.0 mmol/L 23.0 - 27.0 mmol/L [facility] HCO3 (Bld) [Moles/Vol] 23.7 mmol/L 21.0 - 25.0 mmol/L [facility] Oxygen (Bld) [Partial pressure] 216.3 mm[Hg] High [facility] pH (Bld) 7.380 [pH] 7.350 - 7.450 [facility] Laboratory - CoagulationOrde red By: Karyn Weldon on 06-01-2023 Fibrinogen Coag (PPP) [Mass/Vol] 160 mg/dL Low 200 - 400 mg/dL [facility] Laboratory - Coagulationon 0 06-01-2023 aPTT Coag (PPP) [Time] 25.9 s 20.0 - 30.5 s [facility] INR Coag (PPP) [Relative time] 1.5 {INR} High 0.9 - 1.1 [facility] Comment on above: Recommended Anticoag ulant Therapy: [...] 15.1 s High 9.0 - 12.0 s [facility] Laboratory - Hematology and Cell countsOrdered By: Pineda Sanders on 06-01-2023 Hemoglobin (Bld) [Mass/Vol] 10.4 g/dL Screen Only [facility] MAGNESIUMon 06-01-2023 Magnesium [Mass/Vol] 2.9 mg/dL High 1.6-2.3 [facility] Comment on above: Performed By: #### L AB15, [id number] #### [employer] Advisor: ALONZO ALMODOVAR ([phone]) [facility] ([facility]) [address] [place] [address] No Panel Informationon 05-31 Interpretation and review of laboratory results Abnormal [facility] th Performed by: [facility], [address] [place] [address] CLIA ID: [id number] [facility] Interpretation and review of laboratory results Abnormal [facility] th Performed by: [facility], [address] [place] [address] CLIA ID: [id number] [facility] Interpretation and review of laboratory results Abnormal [facility] th Performed by: [facility], [address] [place] [address] CLIA ID: [id number] [facility] Interpretation and review of laboratory results Abnormal [facility] Performed by: [facility], [address] [place] [address] CLIA ID: [id number] [facility] Interpretation and review of laboratory results Abnormal [facility] Performed by: [facility], [address] [place] [address] CLIA ID: [id number] [facility] Interpretation and review of laboratory results Abnormal [facility] Performed by: [facility], [address] [place] [address] CLIA ID: [id number] [facility] Interpretation and review of laboratory results Abnormal [facility] Performed by: [facility], [address] [place] [address] CLIA ID: [id number] [facility] Interpretation and review of laboratory results Normal [facility] Performed by: [facility], [address] [place] [address] CLIA ID: [id number] [facility] Interpretation and review of laboratory results Abnormal [facility] Interpretation and review of laboratory results Abnormal [facility] Interpretation and review of laboratory results Abnormal [facility] Performed by: [facility], [address] [place] [address] CLIA ID: [id number] [facility] Radiology Study observation (narrative) [facility] Rad[facility] Study observation (narrative) [facility] Rad[facility] Study observation (narrative) [facility] Radiology Study observation (narrative) [facility] Radiology Study observation (narrative[facility] Radiology Study observation (narrative) [facility] Radiology Study observation (narrative) [facility] Radiology Study observation (narrative) [facility] Radiology Study observation (narrative) [facility] No Panel InformationOrdered By: Pineda Sanders on 06-01-2023 Interpretation and review of laboratory results Abnormal [facility] Source Of Oxygen [facility] alth Comment on above: 100% [facility] PHOSPHORUSon 06-01-2023 Phosphate [Mass/Vol] 3.2 mg/dL Normal 2.5-4.5 [facility] Comment on above: Performed By: #### L AB15, [id number] #### [employer] Advisor: ALONZO ALMODOVAR ([phone]) [facility] ([facility]) [address] [place] [address] PROTIME AND APTTon aPTT Coag (Bld) [Time] 25.9 s Normal 20.0-30.5 [facility] Comment on above: Performed By: #### L [id number], [id number] ####[employer] Advisor: ALONZO ALMODOVAR ([phone])[facility] ([facility])[address] [place] [address] INR Coag (PPP) [Relative time] 1.5 {INR} High 0.9-1.1 [facility] Comment on above: Result Comment: Kam mmended [...] prevent Myocardial Infarction Performed By: #### L [id number], [id number] ####[employer] Advisor: ALONZO ALMODOVAR ([phone])[facility] ([facility])[address] [place] [address] PT Coag (PPP) [Time] 15.1 s High 9.0-12.0 [facility] Comment on above: Performed By: #### L [id number], [id number] ####[employer] Advisor: ALONZO ALMODOVAR ([phone])[facility] ([facility])[address] [place] [address] Phosphate [Moles/Vol]on Interpretation and review of laboratory results Normal [facility] Phosphate [Mass/Vol] 3.2 mg/dL 2.5 - 4 .5 mg/dL [facility] Progress Noteon 06-01-2023 Progress Note 06/01/23 9897 Patient Parameters Heart Rate 91 SpO2 96 [...] Breathing Trial (SBT) Outcome SBT Passed Normal [facility] Progress Note Attestation signed by Susan Covington DO at 06/01/2023 4:05 PM I have personally performed a ooei-qs-pjum diagnostic evaluation on this patient on date of service 06/01/23. History, labs, imaging studies, and electronic medical record have been reviewed by me. This note documented by the []lodging house keeper [x]MATTY reflects my history, exam, and medical [...] 35 minutes so far today, excluding procedures. [facility] Group: Critical Care Consultation Note Date: 06/01/23 PATIENT NAME: Sylvester Lacy : 1960 (62 y.o.) Reason for Consult: Critical Care & Vent Management HPI: 62 y.o. 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 Pmhx including RCA and [...] note patient lives alone at home. Former [employer] and deals primary for healthcare through [...] CVP 12 12 SVR [phone] PAP 30/10 37/17 Additional Interventions/Misc during Handoff None noted [...] of hand, and NSVT (nonsustained ventricular tachycardia) ([facility]). Past Surgical History: has a [...] Vitamin (multiv (more content not included)... [facility] US Heart Transesophagealon 0 06-01-2023 Left Ventricle: [...] 5. PAM probe was inserted by the crtts with no difficulty. No complications. PAM probe was removed. No contrast was given. See anesthesia notes for medications given. Echo Additional Conclusions No significant valvular abnormalities. CV CPACS HEMO US Heart TransesophagealOrde red By: Juna Luis Guerrero on 06-01-2023 [employer] Work Phone: XR CHEST 1 VIEWon 06-01-2023 [...] Electronically Signed Date/Time: 06/01/2023 2:40 PM EST [facility] XR Chest Single viewon 05-31 Lines, [...] Electronically Signed Date/Time: 06/01/2023 2:40 PM EST [id number] Patient Name: SYLVESTER LACY : 1960 Exam Date/Time: 06/01/2023 14:35 Procedure: XR CHEST 1 VIEW Ordering Provider: LOPES ANDREW Reason For Exam: Post op open heart surgery EXAMINATION: CHEST RADIOGRAPH (SINGLE VIEW AP OR PA) Clinical History: Post op open heart surgery Comparison: Chest CT 05/31/2023 RESULT: See impression [facility] Marcelino Anglin MD - 06/01/2023 [...] Electronically Signed Date/Time: 06/01/2023 2:40 PM EST [facility] Radiology Study observation (narrative) [facility] XR Chest Single viewOrdered By: Marcelino Anglin on 06-01-2023 [facility] delicious Work Phone: ABO and Rh group Confirm Nom (Bld)on 05-31-2023 ABO group Nom (Bld) A [facility] D Ag Ql (RBC) Positive [facility] APTTon 05-31-2023 aPTT Coag (Bld) [Time] 34.2 s High 20.0-30.5 [facility] Comment on above: Result Comment: ROGER Denise COMMENTS: NOTE: The therapeutic time for Heparin anticoagulation, based on Xa activity inhibition, is an APTT of 46-80 seconds. Performed By: #### L [id number] #### [employer] Advisor: ALONZO ALMODOVAR ([phone]) [facility] ([facility]) [address] [place] [address] BLOOD TYPE AND SCREEN GELon 05-31-2023 ABO GROUPING A Normal [facility] Comment on above: Performed By: #### L [id number] ####[employer] Advisor: ALONZO ALMODOVAR ([phone])[facility] ([facility])[address] [place] [address] RH TYPE IN BLOOD Positive Normal [facility] Comment on above: Performed By: #### L [id number] ####[employer] Advisor: ALONZO ALMODOVAR ([phone])[facility] ([facility])[address] [place] [address] Blood type and Crossmatch miesha wong (Bld)on 05-31-2023 ABO group Nom (Bld) A [facility] Blood group antibody screen GEL Ql Negative [facility] D Ag Ql (RBC) Positive [facility] CALCIUM, IONIZEDon 4 CALCIUM IONIZED 4.40 mg/dL Normal 4.30-5.20 [facility] Comment on above: Performed By: #### L AB54 ####[employer] Advisor: ALONZO ALMODOVAR ([phone])[facility] ([facility])[address] [place] [address] PH, IONIZED CALCIUM 7.39 Normal 7.31-7.46 [facility] Comment on above: Performed By: #### L AB54 ####[employer] Advisor: ALONZO ALMODOVAR ([phone])[facility] ([facility] CBC W Auto Differential pane l (Bld)on 05-31-2023 Basophils (Bld) [#/Vol] 0.0 10*3/uL 0.0 - 0.2 10*3/uL [facility] Basophils/100 WBC (Bld) 0.6 % 0.0 - 2.0 % [facility] Eosinophils (Bld) [#/Vol] 0.1 10*3/uL 0. 0 - 0.5 10*3/uL [facility] Eosinophils/100 WBC (Bld) 2.1 % 0.0 - 6.0 % [facility] Erythrocyte distribution width (RBC) [Ratio] 14.0 % 11.5 - 15.0 % [facility] Hematocrit (Bld) [Volume fraction] 40.3 % 40.0 - 52.0 % [facility] Hemoglobin (Bld) [Mass/Vol] 13.4 g/dL 13.0 - 18.0 g/dL [facility] Immature granulocytes (Bld) [#/Vol] 0.0 10*3/uL NINF - 0.1 10*3/uL [facility] Immature granulocytes/100 WBC (Bld) 0.2 % 0.0 - 2.0 % [facility] Interpretation and review of laboratory results Normal [facility] Lymphocytes (Bld) [#/Vol] 1.8 10*3/uL 1. 0 - 4.3 10*3/uL [facility] Lymphocytes/100 WBC (Bld) 33.9 % 15 .0 - 45.0 % [facility] MCH (RBC) [Entitic mass] 29.0 pg 26. 0 - 34.0 pg [facility] MCHC (RBC) [Mass/Vol] 33.3 % 30.5 - 36.0 % [facility] MCV (RBC) [Entitic vol] 87.2 fL 77.0 - 99.0 fL [facility] Monocytes (Bld) [#/Vol] 0.6 10*3/uL 0.0 - 0.9 10*3/uL [facility] Monocytes/100 WBC (Bld) 11.6 % 5.0 - 13.0 % [facility] Neutrophils (Bld) [#/Vol] 2.8 10*3/uL 1. 8 - 7.5 10*3/uL [facility] Neutrophils/100 WBC (Bld) 51.6 % 38 .0 - 82.0 % [facility] Nucleated RBC/100 WBC (Bld) [Ratio] 0.0 % [facility] Platelet mean volume (Bld) [Entitic vol] 9.6 fL 9.0 - 12.7 fL [facility] Platelets (Bld) [#/Vol] 242 10*3/uL 140 - 440 10*3/uL [facility] RBC (Bld) [#/Vol] 4.62 10*6/uL 4.40 - 5.9 0 10*6/uL [facility] WBC (Bld) [#/Vol] 5.3 10*3/uL 3.6 - 10.7 10*3/uL [facility] CBC WITH AUTO DIFFERENTIALon 05-31-2023 Basophils (Bld) [#/Vol] 0.0 10*3/uL Normal 0.0-0.2 [facility] Comment on above: Performed By: #### L [id number] ####[employer] Advisor: ALONZO ALMODOVAR ([phone])[facility])[address] [place] [address] Basophils/100 WBC (Bld) 0.6 % Normal 0.0-2.0 [facility] Comment on above: Performed By: #### L [id number] ####[employer] Advisor: ALONZO ALMODOVAR ([phone])[facility])[address] [place] [address] Eosinophils (Bld) [#/Vol] 0.1 10*3/uL Normal 0.0-0.5 [facility] Comment on above: Performed By: #### L [id number] ####[employer] Advisor: ALONZO ALMODOVAR ([phone])[facility])[address] [place] [address] Eosinophils/100 WBC (Bld) 2.1 % Normal 0.0-6.0 [facility] Comment on above: Performed By: #### L [id number] ####[employer] Advisor: ALONZO [phone])[facility])[address] [place] [address] Erythrocyte distribution width (RBC) [Ratio] 14.0 % Normal 11.5-15.0 [facility] Comment on above: Performed By: #### L [id number] ####[employer] Advisor: ALONZO ALMODOVAR ([phone])[facility])[address] [place] [address] Hematocrit (Bld) [Volume fraction] 40.3 % Normal 40.0-52.0 [facility] Comment on above: Performed By: #### L [id number] ####[employer] Advisor: ALONZO ALMODOVAR ([phone])[facility])[address] [place] [address] Hemoglobin (Bld) [Mass/Vol] 13.4 g/dL Normal 13.0-18.0 [facility] Comment on above: Performed By: #### L [id number] ####[employer] Advisor: ALONZO ALMODOVAR ([phone])[facility])[address] [place] [address] IMMATURE GRANS % 0.2 % Normal 0.0-2.[address] [facility] Comment on above: Performed By: #### L [id number] ####[employer] Advisor: ALONZO ALMODOVAR ([phone])[facility])[address] [place] [address] IMMATURE GRANS ABSOLUTE 0.0 10*3/uL Normal <0.1 [facility] Comment on above: Performed By: #### L [id number] ####[employer] Advisor: ALONZO ALMODOVAR ([phone])[facility])[address] [place] [address] Lymphocytes (Bld) [#/Vol] 1.8 10*3/uL Normal 1.0-4.3 [facility] Comment on above: Performed By: #### L [id number] ####[employer] Advisor: ALONZO ALMODOVAR ([phone])[facility])[address] [place] [address] Lymphocytes/100 WBC (Bld) 33.9 % Normal 15.0-45.0 [facility] Comment on above: Performed By: #### L [id number] ####[employer] Advisor: ALONZO ALMODOVAR ([phone])[facility])[address] [place] [address] MCH (RBC) [Entitic mass] 29.0 pg Normal 26.0-34.0 [facility] Comment on above: Performed By: #### L [id number] ####[employer] Advisor: ALONZO ALMODOVAR ([phone])[facility])[address] [place] [address] MCHC 33.3 % Normal 30.5-36.0 [facility] Comment on above: Performed By: #### L [id number] ####[employer] Advisor: ALONZO ALMODOVAR ([phone])[facility])[address] [place] [address] MCV (RBC) [Entitic vol] 87.2 fL Normal 77.0-99.0 [facility] Comment on above: Performed By: #### L [id number] ####[employer] Advisor: ALONZO ALMODOVAR ([phone])[facility])[address] [place] [address] Monocytes (Bld) [#/Vol] 0.6 10*3/uL Normal 0.0-0.9 [facility] Comment on above: Performed By: #### L [id number] ####[employer] Advisor: ALONZO ALMODOVAR ([phone])[facility])[address] [place] [address] Monocytes/100 WBC (Bld) 11.6 % Normal 5.0-13.0 [facility] Comment on above: Performed By: #### L [id number] ####[employer] Advisor: ALONZO ALMODOVAR ([phone])[address] NEUTROPHILS ABSOLUTE 2.8 10*3/uL Normal 1.8-7.5 [facility] Comment on above: Performed By: #### L [id number] ####[employer] Advisor: ALONZO [phone])[facility] [place] [address] Neutrophils/100 WBC (Bld) 51.6 % Normal 38.0-82.0 [facility] Comment on above: Performed By: #### L [id number] ####[employer] Advisor: ALONZO ALMODOVAR ([phone])[facility] ([facility])[address] [place] [address] NRBC 0.0 /100 WBCs Normal 0.0-2.0 [facility] Comment on above: Performed By: #### L [id number] ####[employer] Advisor: ALONZO ALMODOVAR ([phone])[facility] ([facility])[address] [place] [address] Platelet mean volume (Bld) [Entitic vol] 9.6 fL Normal 9.0-12.7 [facility] Comment on above: Performed By: #### L [id number] ####[employer] Advisor: ALONZO ALMODOVAR ([phone])[facility] ([facility])[address] [place] [address] Platelets (Bld) [#/Vol] 242 10*3/uL Normal 140-440 [facility] Comment on above: Performed By: #### L [id number] ####[employer] Advisor: ALONZO ALMODOVAR ([phone])[facility] ([facility])[address] [place] [address] RBC (Bld) [#/Vol] 4.62 10*6/uL Normal 4.40-5.90 [facility] Comment on above: Performed By: #### L [id number] ####[employer] Advisor: ALONZO ALMODOVAR ([phone])[facility] ([facility])[address] [place] [address] [place] WBC (Bld) [#/Vol] 5.3 10*3/uL Normal 3.6-10.7 [facility] Comment on above: Performed By: #### L [id number] ####[employer] Advisor: ALONZO ALMODOVAR ([phone])[facility] ([facility])[address] [place] [address] COMPREHENSIVE METABOLIC PANE Jt 05-31-2023 Albumin [Mass/Vol] 4.4 g/dL Normal 3.5-5.0 [facility] Comment on above: Performed By: #### L AB103, [id number], LAB17, [id number] ####[employer] Advisor: ALONZO ALMODOVAR ([phone])[facility] ([facility])[address] [place] [address] ALP [Catalytic activity/Vol] 74 U/L Normal 38-126 [facility] Comment on above: Performed By: #### L AB103, [id number], LAB17, [id number] ####[employer] Advisor: ALONZO ALMODOVAR ([phone])[facility] ([facility])[address] [place] [address] ALT [Catalytic activity/Vol] 34 U/L Normal 0-49 [facility] Comment on above: Performed By: #### L AB103, [id number], LAB17, [id number] ####[employer] Advisor: ALONZO ALMODOVAR ([phone])[facility] ([facility])[address] [place] [address] Anion gap [Moles/Vol] 5 mmol/L Normal 3-13 [facility] Comment on above: Performed By: #### L AB103, [id number], LAB17, [id number] ####[employer] Advisor: ALONZO ALMODOVAR ([phone])[facility] ([facility])[address] [place] [address] AST [Catalytic activity/Vol] 32 U/L Normal 15-46 [facility] Comment on above: Performed By: #### L AB103, [id number], LAB17, [id number] ####[employer] Advisor: ALONZO ALMODOVAR ([phone])[facility])[address] [place] [address] Bilirubin [Mass/Vol] 0.6 mg/dL Normal 0.2-1.3 [facility] Comment on above: Performed By: #### L AB103, [id number], LAB17, [id number] ####[employer] Advisor: ALONZO ALMODOVAR ([phone])[facility] ([facility])[address] [place] [address] Calcium [Mass/Vol] 9.4 mg/dL Normal 8.4-10.4 [facility] Comment on above: Performed By: #### L AB103, OKQ386, LAB17, [id number] ####[employer] Advisor: ALONZO ALMODOVAR ([phone])[facility] [place] [address] Chloride [Moles/Vol] 103 mmol/L Normal 98-107 [facility] Comment on above: Performed By: #### L AB103, SZA026, LAB17, [id number] ####[employer] Advisor: ALONZO ALMODOVAR ([phone])[facility] [place] [address] CO2 [Moles/Vol] 28 mmol/L Normal 22-30 [facility] Comment on above: Performed By: #### L AB103, [id number], LAB17, [id number] ####[employer] Advisor: ALONZO ALMODOVAR ([phone])[facility] [place] [address] Creatinine [Mass/Vol] 0.75 mg/dL Normal 0.66-1.25 [facility] Comment on above: Performed By: #### L AB103, [id number], LAB17, [id number] ####[employer] Advisor: ALONZO ALMODOVAR ([phone])[facility] [place] [address] GLOMERULAR FILTRATION RATE ML/MIN/1.73 SQ M.PREDICTED >90.0 Normal >60.0 [facility] Comment on above: Result Comment: Calc ulation based on the Chronic Kidney Disease Epidemiology Collaboration (CKD-EPI) equation refit without adjustment for race Performed By: #### L AB103, [id number], LAB17, [id number] ####[employer] Advisor: ALONZO ALMODOVAR ([phone])[facility] [place] [address] [place] Glucose [Mass/Vol] 91 mg/dL Normal 70-100 [facility] Comment on above: Performed By: #### L AB103, [id number], LAB17, [id number] ####[employer] Advisor: ALONZO ALMODOVAR ([phone])[facility])[address] [place] [address] Potassium [Moles/Vol] 4.0 mmol/L Normal 3.5-5.1 [facility] Comment on above: Performed By: #### L AB103, INV254, LAB17, [id number] ####[employer] Advisor: ALONZO ALMODOVAR ([phone])[facility])[address] [place] [address] Protein [Mass/Vol] 7.3 g/dL Normal 6.3-8.2 [facility] Comment on above: Performed By: #### L AB103, [id number], LAB17, [id number] ####[employer] Advisor: ALONZO ALMODOVAR ([phone])[facility])[address] [place] [address] Sodium [Moles/Vol] 137 mmol/L Normal 135-145 [facility] Comment on above: Performed By: #### L AB103, OLQ058, LAB17, [id number] ####[employer] Advisor: ALONZO ALMODOVAR ([phone])[facility])[address] [place] [address] Urea nitrogen [Mass/Vol] 12 mg/dL Normal 9-20 [facility] Comment on above: Performed By: #### L AB103, [id number], LAB17, [id number] ####[employer] Advisor: ALONZO ALMODOVAR ([phone])[facility])[address] [place] [address] CT Chest WO contraston 05-30 Radiology Study observation (narrative) [facility] Calcium.ionized [Moles/Vol]o n 05-31-2023 Calcium.ionized (Bld) [Moles/Vol] 4.40 mg/dL 4.30 - 5.20 mg/dL [facility] Interpretation and review of laboratory results Normal [facility] PH, IONIZED CALCIUM 7.39 7.31 - 7.46 [facility] Comprehensive metabolic 1998 panelon 05-31-2023 Albumin [Mass/Vol] 4.4 g/dL 3.5 - 5.0 g/dL [facility] ALP [Catalytic activity/Vol] 74 U/L 38 - 126 U/L [facility] ALT [Catalytic activity/Vol] 34 U/L 0 - 49 U/L [facility] Anion gap [Moles/Vol] 5 mmol/L 3 - 13 mmol/L [facility] AST [Catalytic activity/Vol] 32 U/L 15 - 46 U/L [facility] Bilirubin [Mass/Vol] 0.6 mg/dL 0.2 - 1 .3 mg/dL [facility] Calcium [Mass/Vol] 9.4 mg/dL 8.4 - 10. 4 mg/dL [facility] Chloride [Moles/Vol] 103 mmol/L 98 - 10 7 mmol/L [facility] CO2 [Moles/Vol] 28 mmol/L 22 - 30 mmol/L [facility] Creatinine [Mass/Vol] 0.75 mg/dL 0.66 - 1.25 mg/dL [facility] GFR/1.73 sq M.predicted MDRD (S/P/Bld) [Vol rate/Area] - PINF [facility] Comment on above: Calculation based on the Chronic Kidney Disease Epidemiology Collaboration (CKD-EPI) equation refit without adjustment for race Glucose [Mass/Vol] 91 mg/dL 70 - 100 mg/dL [facility] Potassium [Moles/Vol] 4.0 mmol/L 3.5 - 5.1 mmol/L [facility] Protein [Mass/Vol] 7.3 g/dL 6.3 - 8.2 g/dL [facility] Sodium [Moles/Vol] 137 mmol/L 135 - 145 mmol/L [facility] Urea nitrogen [Mass/Vol] 12 mg/dL 9 - 20 mg/d L [facility] HEMOGLOBIN A1Con 05-31-2023 Glucose [Mass/Vol] 131 mg/dL Normal [facility] Comment on above: Performed By: #### L AB90 ####[employer] Advisor: ALONZO ALMODOVAR ([phone])[facility] ([address] HbA1c (Bld) [Mass fraction] 6.2 % High <5.7 [facility] Comment on above: Result Comment: Norm al less than 5.7% Prediabetes 5.7% to 6.4% Diabetes 6.5% or higher --HgbA1C levels may not be accurate in patients who have renal disease, received recent blood transfusions, are anemic, or who have dyshemoglobinemia. Performed By: #### L AB90 ####[employer] Advisor: ALONZO ALMODOVAR ([phone])[facility] ([facility] Laboratory - Chemistry and C hemistry - challengeon 05-31-2023 Troponin I.cardiac [Mass/Vol] ng/mL [facility] - 0.034 ng/mL [facility] Troponin I.cardiac [Mass/Vol] ng/mL [facility] - 0.034 ng/mL [facility] Troponin I.cardiac [Mass/Vol] ng/mL [facility] - 0.034 ng/mL [facility] Average glucose Estimated from glycated hemoglobin (Bld) [Mass/Vol] 131 mg/dL [facility] Magnesium [Mass/Vol] 2.0 mg/dL 1.6 - 2 .3 mg/dL [facility] Laboratory - Coagulationon 0 05-31-2023 aPTT Coag (PPP) [Time] 27.9 s 20.0 - 30.5 s [facility] INR Coag (PPP) [Relative time] 1.0 {INR} 0.9 - 1.1 [facility] Comment on above: Recommended Anticoag ulant Therapy: [...] [Time] 10.8 s 9.0 - 12.0 s [facility] Laboratory - Hematology and Cell countson 05-31-2023 HbA1c (Bld) [Mass fraction] 6.2 % High [facility] - 5.7 % [facility] Comment on above: Normal less than 5.7 % Prediabetes 5.7% to 6.4% Diabetes 6.5% or higher --HgbA1C levels may not be accurate in patients who have renal disease, received recent blood transfusions, are anemic, or who have dyshemoglobinemia. MAGNESIUMon 05-31-2023 Magnesium [Mass/Vol] 2.0 mg/dL Normal 1.6-2.3 [facility] Comment on above: Performed By: #### L AB103, [id number], LAB17, [id number] ####[employer] Advisor: ALONZO ALMODOVAR ([phone])[facility])[address] [place] [address] MRSA BY PCRon 05-31-2023 MRSA BY PCR [...] modified and its performance characteristics determined by [facility]. The U. S. Food and Drug Administration has not approved or cleared this test; however, FDA clearance or approval is not currently required for clinical use. The results are not intended to be used as the sole means for clinical diagnosis or patient management decisions. Normal [facility] Comment on above: Performed By: #### L [id number] #### [employer] Advisor: ALONZO ALMODOVAR ([phone]) [facility] ([facility]) [address] [place] [address] MRSA DNA ROBERTH+probe Ql (Nose) on 05-31-2023 Interpretation and review of laboratory results Abnormal [facility] mecA gene Not detected Not Detected [facility] Staphylococcus aureus Detected Abnormal Not Detected [facility] Methicillin-sensitiv e Staphylococcus aureus (MSSA) present; [...] modified and its performance characteristics determined by [facility]. The U. S. Food and Drug Administration has not approved or cleared this test; however, FDA clearance or approval is not currently required for clinical use. The results are not intended to be used as the sole means for clinical diagnosis or patient management decisions. [facility] No Panel Informationon 05-30 There is diminished [...] Sultana CNP on 05/31/2023 at 04:00 EST. [employer] Photo plethysmography was performed. The exam was performed with the patient in the supine position. Overall the study quality was adequate. Study was technically difficult due to: bedside exam and Abnormal waveforms in left upper extremity. CV CPACS Interpretation and review of laboratory results Normal [facility] Interpretation and review of laboratory results Abnormal [facility] Interpretation and review of laboratory results Normal [facility] Office Visiton 05-31-2023 Follow-up visit [id number] Sylvester Lacy 1960 M Date Provider Department Center 05/31/2023 [id number], NKEM [facility] CT None Family History Problem Relation Age of Onset Diabetes Mother Family Status - Relation Status Age at Mother Level of Service:20260 PA OFFICE/OP CONSLTJ NEW/EST PT HIGH MDM 55 MINUTES Reason for Visit and Comments: New Patient [542] Normal [facility] PHOSPHORUSon 05-31-2023 Phosphate [Mass/Vol] 3.2 mg/dL Normal 2.5-4.5 [facility] Comment on above: Performed By: #### L AB103, [id number], LAB17, [id number] ####[employer] Advisor: ALONZO ALMODOVAR ([phone])[facility] ([facility])[address] [place] [address] PROTIME AND APTTon aPTT Coag (Bld) [Time] 27.9 s Normal 20.0-30.5 [facility] Comment on above: Performed By: #### L [id number] ####[employer] Advisor: ALONZO ALMODOVAR ([phone])[facility])[address] [place] [address] INR Coag (PPP) [Relative time] 1.0 {INR} Normal 0.9-1.1 [facility] Comment on above: Result Comment: Kam mmended [...] prevent Myocardial Infarction Performed By: #### Sebastien [id number] ####[employer] Advisor: ALONZO ALMODOVAR ([phone])[facility] ([facility])[address] [place] [address] PT Coag (PPP) [Time] 10.8 s Normal 9.0-12.0 [facility] Comment on above: Performed By: #### L [id number] ####[employer] Advisor: ALONZO ALMODOVAR ([phone])[facility])[address] [place] [address] [place] Phosphate [Moles/Vol]on Phosphate [Mass/Vol] 3.2 mg/dL 2.5 - 4 .5 mg/dL [facility] Progress Noteon 05-31-2023 Progress Note Per pt his PCP is aware he is here Normal [facility] Progress Note Pre op teaching done with patient. Pt being direct admitted today. All questions answered. Normal [facility] Progress Note [facility] CARDIOVASCULAR & THORACIC SURGERY [address] [facility] [address] [facility] [facility] [id number] Dept: [phone] Dept Loc: [phone] Visit type: New Reason for Visit: Coronary [...] Pt had a stress test at the December 2022 which demonstrated no reversible ischemia, [...] kg/m? C (more content not included)... Normal [facility] TROPONIN Ion 05-31-2023 Troponin I.cardiac [Mass/Vol] ng/mL Normal <0.034 [facility] Comment on above: Result Comment: ROGER Denise COMMENTS: Patients with high levels of Biotin oral intake (ie >5 mg/day) may have falsely decreased Troponin levels. Performed By: #### L [id number], [id number] #### [employer] Advisor: ALONZO ALMODOVAR ([id number]) [facility] ([facility]) [address] [place] [address] Troponin I.cardiac [Mass/Vol] ng/mL Normal <0.034 [facility] Comment on above: Result Comment: ROGER Denise COMMENTS: Patients with high levels of Biotin oral intake (ie >5 mg/day) may have falsely decreased Troponin levels. Performed By: #### L [id number] ####[employer] Advisor: ALONZO ALMODOVAR ([id number])[facility] ([facility])[address] [place] [address] TROPONIN, WITH SERIAL REFLEX on 05-31-2023 Troponin I.cardiac [Mass/Vol] ng/mL Normal <0.034 [facility] Comment on above: Result Comment: ROGER Denise COMMENTS: Patients with high levels of Biotin oral intake (ie >5 mg/day) may have falsely decreased Troponin levels. Performed By: #### L [id number], [id number], [id number], [id number] ####[employer] Advisor: ALONZO ALMODOVAR ([id number])[facility] [place] [address] Troponin I.cardiac [Mass/Vol ]on 05-31-2023 Interpretation and review of laboratory results Normal [facility] Patients with high levels of Biotin oral intake (ie >5 mg/day) may have falsely decreased Troponin levels. [facility] Interpretation and review of laboratory results Normal [facility] Patients with high levels of Biotin oral intake (ie >5 mg/day) may have falsely decreased Troponin levels. [facility] Interpretation and review of laboratory results Normal [facility] Patients with high levels of Biotin oral intake (ie >5 mg/day) may have falsely decreased Troponin levels. [facility] aPTT Coag (Bld) [Time]on aPTT Coag (PPP) [Time] 34.2 s High 20.0 - 30.5 s [facility] Interpretation and review of laboratory results Abnormal [facility] NOTE: The therapeutic time for Heparin anticoagulation, based on Xa activity inhibition, is an APTT of 46-80 seconds. [facility] Absolute lymphocyte countOrd ered By: Michelle Davies on 05-17-2023 Lymphocytes Auto (Unsp spec) [#/Vol] 1.75 10*3/uL 0.83-4.51 [place] Activated partial thrombopla stin time (aPTT) in platelet poor plasma by coagulation aOrdered By: Michelle Davies on 05-17-2023 aPTT Coag (PPP) [Time] 30.3 s 24.1-36.2 [facility] Automated lymphocyte count a s percentage of total leukocytesOrdered By: Michelle Davies on 05-17-2023 Lymphocytes/100 WBC Auto (Unsp spec) 29.7 % 19-41 [place] Basophil percentageOrdered B y: Michelle Davies on 05-17-2023 Basophils/100 WBC (Bld) 0.7 % 0-1 [facility] Chloride [Moles/Vol] 109 mmol/L 98-107 [facility] Eosinophils/100 WBC (Bld) 2.0 % 0-5 [place] Glucose [Mass/Vol] 92 mg/dL 74-106 [facility] Hemoglobin (Bld) [Mass/Vol] 14.3 g/dL 13.0-16.5 [place] Monocytes/100 WBC (Bld) 10.5 % 0-10 [facility] Neutrophils (Bld) [#/Vol] 3.3 10*3/uL 2.0-7.7 [place] Neutrophils/100 WBC (Bld) 56.8 % 47-70 [place] Potassium [Moles/Vol] 4.4 mmol/L 3.5-5.1 [facility] Sodium [Moles/Vol] 141 mmol/L 136-145 [facility] WBC (Bld) [#/Vol] 5.9 10*3/uL 4.4-11.0 [facility] Determination of erythrocyte mean corpuscular volume (MCV)Ordered By: Michelle Davies on 05-17-2023 MCV (RBC) [Entitic vol] 88.7 fL 80-94 [facility] Erythrocyte distribution wid th ratioOrdered By: Michelle Davies on 05-17-2023 Erythrocyte distribution width (RBC) [Ratio] 13.2 % 11.6-14.6 [place] Erythrocyte distribution wid th standard deviationOrdered By: Michelle Davies on 05-17-2023 Erythrocyte distribution width (RBC) [Entitic vol] 43.4 fL 35.1-43.9 [facility] Hematocrit Auto (Bld) [Volum e fraction]Ordered By: Michelle Davies on 05-17-2023 Hematocrit (Bld) [Volume fraction] 43.8 % 40-54 [place] Immature granulocytes/100 WB C Auto (Bld)Ordered By: Michelle Davies on 05-17-2023 Immature granulocytes/100 WBC (Bld) 0.300 % 0.0-0.9 [place] Comment on above: IG% - Immature Granu locytes (promyelocytes, myelocytes and metamyelocytes) > 1% indicates that a LEFT SHIFT is Present. Laboratory - Chemistry and C hemistry - challengeOrdered By: Michelle Davies on 05-17-2023 CO2 [Moles/Vol] 28.0 mmol/L 21.0-32.0 [place] Urea nitrogen/Creatinine [Mass ratio] 16.4 mg/mg 10-20 [place] Laboratory - CoagulationOrde red By: Michelle Davies on 05-17-2023 INR Coag (Bld) [Relative time] 1.0 {INR} [place] PT Coag (PPP) [Time] 13.2 s 11.7-14.9 [facility] Laboratory - Hematology and Cell countsOrdered By: Michelle Davies on 05-17-2023 MCH (RBC) [Entitic mass] 28.9 pg 27.0-32.0 [place] MCHC (RBC) [Mass/Vol] 32.6 g/dL 32-36 [facility] Nucleated RBC/100 WBC (Bld) [Ratio] 0 % 0-5 [place] Platelet mean volume (Bld) [Entitic vol] 9.5 fL 6.2-12.0 [place] Platelets (Bld) [#/Vol] 286 10*3/uL 150-450 [place] No Panel InformationOrdered By: Michelle Davies on 05-17-2023 Estimated GFR (MDRD) Amer 100 mL/min >60 [place] Comment on above: GFR Calc Estimated GFR (MDRD) Non-Af Amer 83 mL/min >60 [place] Comment on above: Non- GFR Calc RBC Auto (Bld) [#/Vol]Ordere d By: Michelle Davies on 05-17-2023 RBC (Bld) [#/Vol] 4.94 10*6/uL 4.6-6.2 [facility] Serum or plasma calcium yaya urement (mass/volume)Ordered By: Michelle Davies on 05-17-2023 Calcium [Mass/Vol] 9.3 mg/dL 8.5-10.1 [facility] Serum or plasma creatinine m easurement (mass/volume)Ordered By: Michelle Davies on 05-17-2023 Creatinine [Mass/Vol] 0.97 mg/dL 0.70-1.30 [facility] Comment on above: The validity of the calculated GFR & GFRAA in patients over 70 years has not been determined. Clinical correlation is essential. Serum or plasma urea nitroge n measurement (mass/volume)Ordered By: Michelle Davies on 05-17-2023 Urea nitrogen [Mass/Vol] 16 mg/dL 7-18 [place] Thin prep Papanicolaou smear with manual screeningOrdered By: Michelle Davies on 05-17-2023 Thin prep Papanicolaou smear with manual screening 4 5-15 [place] Absolute lymphocyte countOrd ered By: Dr. Oneil on 06-16-2022 Lymphocytes Auto (Unsp spec) [#/Vol] 1.85 10*3/uL 0.83-4.51 [place] Basophil percentageOrdered B y: Dr. Oneil on 03-23-2023 Basophils/100 WBC (Bld) 1.0 % 0-1 [facility] Chloride [Moles/Vol] 109 mmol/L 98-107 [facility] Eosinophils/100 WBC (Bld) 2.9 % 0-5 [place] Glucose [Mass/Vol] 98 mg/dL 74-106 [facility] Neutrophils (Bld) [#/Vol] 2.2 10*3/uL 2.0-7.7 [place] Neutrophils/100 WBC (Bld) 44.6 % 47-70 [place] Potassium [Moles/Vol] 4.8 mmol/L 3.5-5.1 [facility] Sodium [Moles/Vol] 141 mmol/L 136-145 [facility] WBC (Bld) [#/Vol] 4.8 10*3/uL 4.4-11.0 [facility] Blood erythrocytes count (nu mber/volume)Ordered By: Dr. Oneil on 06-16-2022 RBC (Bld) [#/Vol] 4.60 10*6/uL 4.6-6.2 [facility] Blood hemoglobin measurement (mass/volume)Ordered By: Dr. Oneil on 06-16-2022 Hemoglobin (Bld) [Mass/Vol] 13.3 g/dL 13.0-16.5 [place] Blood lymphocytes/100 leukoc ytesOrdered By: Dr. Oneil on 06-16-2022 Lymphocytes/100 WBC (Bld) 38.4 % 19-41 [place] Blood monocytes/100 leukocyt esOrdered By: Dr. Oneil on 06-16-2022 Monocytes/100 WBC (Bld) 12.7 % 0-10 [facility] Blood platelet mean volumeOr dered By: Dr. Oneil on 06-16-2022 Platelet mean volume (Bld) [Entitic vol] 9.3 fL 6.2-12.0 [place] Determination of erythrocyte mean corpuscular volume (MCV)Ordered By: Dr. Oneil on 06-16-2022 MCV (RBC) [Entitic vol] 90.9 fL 80-94 [facility] Hematocrit Auto (Bld) [Volum e fraction]Ordered By: Dr. Oneil on 06-16-2022 Hematocrit (Bld) [Volume fraction] 41.8 % 40-54 [place] Laboratory - Chemistry and C hemistry - challengeOrdered By: Dr. Oneil on 06-16-2022 CO2 [Moles/Vol] 30.0 mmol/L 21.0-32.0 [place] Urea nitrogen/Creatinine [Mass ratio] 16.8 mg/mg 10-20 [place] Laboratory - Hematology and Cell countsOrdered By: Dr. Oneil on 06-16-2022 Erythrocyte distribution width (RBC) [Entitic vol] 43.8 fL 35.1-43.9 [facility] Erythrocyte distribution width (RBC) [Ratio] 13.2 % 11.6-14.6 [place] Immature granulocytes/100 WBC (Bld) 0.400 % 0.0-0.9 [place] Comment on above: IG% - Immature Granu locytes (promyelocytes, myelocytes and metamyelocytes) > 1% indicates that a LEFT SHIFT is Present. MCH (RBC) [Entitic mass] 28.9 pg 27.0-32.0 [place] Nucleated RBC/100 WBC (Bld) [Ratio] 0 % 0-5 [place] MCHC Auto (RBC) [Mass/Vol]Or dered By: Dr. Oneil on 06-16-2022 MCHC (RBC) [Mass/Vol] 31.8 g/dL 32-36 [facility] No Panel InformationOrdered By: Dr. Oneil on 06-16-2022 Estimated Creatinine Clearance Calc 67.78 ml/min [place] Estimated GFR (MDRD) Amer 84 mL/min >60 [place] Comment on above: GFR Calc Estimated GFR (MDRD) Non-Af Amer 70 mL/min >60 [place] Comment on above: Non- GFR Calc Troponin I High Sensitivity 5 pg/mL 3.0-78.0 [place] Comment on above: Please Note: New Nafisa t Units and Gender Specific Reference Ranges. For more information see Policy Stat Procedure [place] High Sensitivity Troponin (TNIH) and attachments. Platelets bldOrdered By: Dr. Oneil on 06-16-2022 Platelets (Bld) [#/Vol] 221 10*3/uL 150-450 [place] Serum or plasma calcium yaya urement (mass/volume)Ordered By: Dr. Oneil on 06-16-2022 Calcium [Mass/Vol] 9.1 mg/dL 8.5-10.1 [facility] Serum or plasma creatinine m easurement (mass/volume)Ordered By: Dr. Oneil on 06-16-2022 Creatinine [Mass/Vol] 1.13 mg/dL 0.70-1.30 [facility] Comment on above: The validity of the calculated GFR & GFRAA in patients over 70 years has not been determined. Clinical correlation is essential. Serum or plasma urea nitroge n measurement (mass/volume)Ordered By: Dr. Oneil on 06-16-2022 Urea nitrogen [Mass/Vol] 19 mg/dL 7-18 [place] Thin prep Papanicolaou smear with manual screeningOrdered By: Dr. Oneil on 06-16-2022 Thin prep Papanicolaou smear with manual screening 2 5-15 [place] Absolute lymphocyte countOrd ered By: Dr. Palacio on 04-16-2022 Lymphocytes Auto (Unsp spec) [#/Vol] 1.30 10*3/uL 0.83-4.51 [place] Basophil percentageOrdered B y: Dr. Palacio on 04-16-2022 Basophils/100 WBC (Bld) 0.6 % 0-1 [facility] Chloride [Moles/Vol] 110 mmol/L 98-107 [facility] Eosinophils/100 WBC (Bld) 2.1 % 0-5 [place] Glucose [Mass/Vol] 108 mg/dL 74-106 [facility] Comment on above: Fasting Glucose resu lt from 100 to 125 mg/dL suggests IMPAIRED HOMEOSTASIS per A.D.A. criteria. Neutrophils (Bld) [#/Vol] 1.5 10*3/uL 2.0-7.7 [place] Neutrophils/100 WBC (Bld) 44.8 % 47-70 [place] Potassium [Moles/Vol] 4.2 mmol/L 3.5-5.1 [facility] Sodium [Moles/Vol] 143 mmol/L 136-145 [facility] WBC (Bld) [#/Vol] 3.3 10*3/uL 4.4-11.0 [facility] Blood erythrocytes count (nu mber/volume)Ordered By: Dr. Palacio on 04-16-2022 RBC (Bld) [#/Vol] 4.95 10*6/uL 4.6-6.2 [facility] Blood hemoglobin measurement (mass/volume)Ordered By: Dr. Palacio on 04-16-2022 Hemoglobin (Bld) [Mass/Vol] 14.4 g/dL 13.0-16.5 [place] Blood lymphocytes/100 leukoc ytesOrdered By: Dr. Palacio on 04-16-2022 Lymphocytes/100 WBC (Bld) 39.2 % 19-41 [place] Blood monocytes/100 leukocyt esOrdered By: Dr. Palacio on 04-16-2022 Monocytes/100 WBC (Bld) 13.0 % 0-10 [facility] Blood platelet mean volumeOr dered By: Dr. Palacio on 04-16-2022 Platelet mean volume (Bld) [Entitic vol] 9.1 fL 6.2-12.0 [place] Determination of erythrocyte mean corpuscular volume (MCV)Ordered By: Dr. Palacio on 04-16-2022 MCV (RBC) [Entitic vol] 90.1 fL 80-94 [facility] Hematocrit Auto (Bld) [Volum e fraction]Ordered By: Dr. Palacio on 04-16-2022 Hematocrit (Bld) [Volume fraction] 44.6 % 40-54 [place] Influenza virus A and B and SARS-CoV-2 (COVID-19) Ag panel - Upper respiratory specimOrdered By: Dr. Palacio on 04-16-2022 SARS-CoV-2 & FLU Antigen (Rapid) SARS-CoV-2 (COVID 19) [place] SARS-CoV-2 (COVID-19) RNA ROBERTH+probe Ql (Resp) [place] Laboratory - Chemistry and C hemistry - challengeOrdered By: Dr. Palacio on 04-16-2022 CO2 [Moles/Vol] 30.0 mmol/L 21.0-32.0 [place] Urea nitrogen/Creatinine [Mass ratio] 22.6 mg/mg 10-20 [place] Laboratory - Hematology and Cell countsOrdered By: Dr. Palacio on 04-16-2022 Erythrocyte distribution width (RBC) [Entitic vol] 42.5 fL 35.1-43.9 [facility] Erythrocyte distribution width (RBC) [Ratio] 12.8 % 11.6-14.6 [place] Immature granulocytes/100 WBC (Bld) 0.300 % 0.0-0.9 [place] Comment on above: IG% - Immature Granu locytes (promyelocytes, myelocytes and metamyelocytes) > 1% indicates that a LEFT SHIFT is Present. MCH (RBC) [Entitic mass] 29.1 pg 27.0-32.0 [place] Nucleated RBC/100 WBC (Bld) [Ratio] 0 % 0-5 [place] MCHC Auto (RBC) [Mass/Vol]Or dered By: Dr. Palacio on 04-16-2022 MCHC (RBC) [Mass/Vol] 32.3 g/dL 32-36 [facility] No Panel InformationOrdered By: Dr. Palacio on 04-16-2022 Estimated Creatinine Clearance Calc 95.74 ml/min [place] Estimated GFR (MDRD) Amer 127 mL/min >60 [place] Comment on above: GFR Calc Estimated GFR (MDRD) Non-Af Amer 105 mL/min >60 [place] Comment on above: Non- GFR Calc Platelets bldOrdered By: Dr. Palacio on 04-16-2022 Platelets (Bld) [#/Vol] 172 10*3/uL 150-450 [place] Serum or plasma calcium yaya urement (mass/volume)Ordered By: Dr. Palacio on 04-16-2022 Calcium [Mass/Vol] 8.6 mg/dL 8.5-10.1 [facility] Serum or plasma creatinine m easurement (mass/volume)Ordered By: Dr. Palacio on 04-16-2022 Creatinine [Mass/Vol] 0.80 mg/dL 0.70-1.30 [facility] Comment on above: The validity of the calculated GFR & GFRAA in patients over 70 years has not been determined. Clinical correlation is essential. Serum or plasma urea nitroge n measurement (mass/volume)Ordered By: Dr. Palacio on 04-16-2022 Urea nitrogen [Mass/Vol] 18 mg/dL 7-18 [place] Thin prep Papanicolaou smear with manual screeningOrdered By: Dr. Palacio on 04-16-2022 Thin prep Papanicolaou smear with manual screening 3 5-15 [place] Absolute lymphocyte counton 06-25-2021 Lymphocytes Auto (Unsp spec) [#/Vol] 1.61 10*3/uL 0.83-4.51 [place] Work Phone: Basophil percentageon 2021 Basophils/100 WBC (Bld) 1.0 % 0-1 [facility] Work Phone: Chloride [Moles/Vol] 106 mmol/L 98-107 [facility] Work Phone: [phone] Eosinophils/100 WBC (Bld) 2.4 % 0-5 [place] Work Phone: [phone] Glucose [Mass/Vol] 80 mg/dL 74-106 [facility] Work Phone: Neutrophils (Bld) [#/Vol] 2.6 10*3/uL 2.0-7.7 [place] Work Phone: Neutrophils/100 WBC (Bld) 52.3 % 47-70 [place] Work Phone: Potassium [Moles/Vol] 4.2 mmol/L 3.5-5.1 [facility] Work Phone: [phone] Sodium [Moles/Vol] 138 mmol/L 136-145 [facility] Work Phone: WBC (Bld) [#/Vol] 4.9 10*3/uL 4.4-11.0 [facility] Work Phone: [phone] Blood erythrocytes count (nu mber/volume)on 06-25-2021 RBC (Bld) [#/Vol] 4.68 10*6/uL 4.6-6.2 [facility] Work Phone: [phone] Blood hemoglobin measurement (mass/volume)on 06-25-2021 Hemoglobin (Bld) [Mass/Vol] 13.6 g/dL 13.0-16.5 [place] Work Phone: Blood lymphocytes/100 leukoc yteson 06-25-2021 Lymphocytes/100 WBC (Bld) 32.7 % 19-41 [place] Work Phone: Blood monocytes/100 leukocyt eson 06-25-2021 Monocytes/100 WBC (Bld) 11.2 % 0-10 [facility] Work Phone: Blood platelet mean volumeon 06-25-2021 Platelet mean volume (Bld) [Entitic vol] 8.7 fL 6.2-12.0 [place] Work Phone: Determination of erythrocyte mean corpuscular volume (MCV)on 06-25-2021 MCV (RBC) [Entitic vol] 88.5 fL 80-94 [facility] Work Phone: Hematocrit Auto (Bld) [Volum e fraction]on 06-25-2021 Hematocrit (Bld) [Volume fraction] 41.4 % 40-54 [place] Work Phone: INR in Blood by Coagulation assayon 06-25-2021 INR Coag (Bld) [Relative time] 1.0 {INR} [place] Work Phone: Laboratory - Chemistry and C hemistry - challengeon 06-25-2021 CO2 [Moles/Vol] 30.0 mmol/L 21.0-32.0 [place] Work Phone: Urea nitrogen/Creatinine [Mass ratio] 20.9 mg/mg 10-20 [place] Work Phone: Laboratory - Coagulationon 0 06-25-2021 aPTT Coag (Bld) [Time] 31.9 s 24.1-36.2 [facility] Work Phone: PT Coag (PPP) [Time] 12.5 s 11.7-14.9 [facility] Work [facility]: Laboratory - Hematology and Cell countson 06-25-2021 Erythrocyte distribution width (RBC) [Entitic vol] 42.6 fL 35.1-43.9 [facility] Work Phone: Erythrocyte distribution width (RBC) [Ratio] 13.2 % 11.6-14.6 [place] Work Phone: Immature granulocytes/100 WBC (Bld) 0.400 % 0.0-0.9 [place] Work Phone: Comment on above: IG% - Immature Granu locytes (promyelocytes, myelocytes and metamyelocytes) > 1% indicates that a LEFT SHIFT is Present. MCH (RBC) [Entitic mass] 29.1 pg 27.0-32.0 [place] Work Phone: Nucleated RBC/100 WBC (Bld) [Ratio] 0 % 0-5 [place] Work Phone: MCHC Auto (RBC) [Mass/Vol]on 06-25-2021 MCHC (RBC) [Mass/Vol] 32.9 g/dL 32-36 [facility] Work Phone: No Panel Informationon 06-25 Estimated Creatinine Clearance Calc 102.07 ml/min [place] Work Phone: Estimated GFR (MDRD) Amer 133 mL/min >60 [place] Work Phone: Comment on above: GFR Calc Estimated GFR (MDRD) Non-Af Amer 110 mL/min >60 [place] Work Phone: Comment on above: Non- GFR Calc Troponin I High Sensitivity 4 pg/mL 3.0-78.0 [place] Work Phone: Comment on above: Please Note: New Nafisa t Units and Gender Specific Reference Ranges. For more information see Policy Stat Procedure [place] High Sensitivity Troponin (TNIH) and attachments. Platelets bldon 06-25-2021 Platelets (Bld) [#/Vol] 236 10*3/uL 150-450 [place] Work Phone: Serum or plasma calcium yaya urement (mass/volume)on 06-25-2021 Calcium [Mass/Vol] 8.7 mg/dL 8.5-10.1 [facility] Work Phone: Serum or plasma creatinine m easurement (mass/volume)on 06-25-2021 Creatinine [Mass/Vol] 0.76 mg/dL 0.70-1.30 [facility] Work Phone: Comment on above: The validity of the calculated GFR & GFRAA in patients over 70 years has not been determined. Clinical correlation is essential. Serum or plasma urea nitroge n measurement (mass/volume)on 06-25-2021 Urea nitrogen [Mass/Vol] 16 mg/dL 7-18 [place] Work Phone: Thin prep Papanicolaou smear with manual screeningon 06-25-2021 Thin prep Papanicolaou smear with manual screening 2 5-15 [place] Work Phone: Vital Signs Date Time Vital Sign Value Performing Clinician Faci lity 12-03-2024 11:17-0400 Body mass index (BMI) [Ratio] 36.9 kg/m2 [facility] 12-03-2024 11:17-0400 Body weight 113.39 kg [facility] 12-03-2024 11:17-0400 Diastolic blood pressure 91 mm[Hg] [facility] 12-03-2024 11:17-0400 Heart rate 75 /min [facility] 12-03-2024 11:17-0400 Respiratory rate 18 /min [facility] 12-03-2024 11:17-0400 SaO2% (BldA) [Mass fraction] 93 % [facility] 12-03-2024 11:17-0400 Systolic blood pressure 124 mm[Hg] [facility] 11-10-2024 19:16-0400 Body temperature 97.3 [degF] [facility] 11-10-2024 19:16-0400 Diastolic blood pressure 80 mm[Hg] [facility] 11-10-2024 19:16-0400 Heart rate 67 /min [facility] 11-10-2024 19:16-0400 Respiratory rate 15 /min [facility] 11-10-2024 19:16-0400 SaO2% (BldA) [Mass fraction] 97 % [facility] 11-10-2024 19:16-0400 Systolic blood pressure 119 mm[Hg] [facility] 11-10-2024 16:26-0400 Body height 175.26 cm [facility] 11-10-2024 16:26-0400 Body mass index (BMI) [Ratio] 36.6 kg/m2 [facility] 11-10-2024 16:26-0400 Body weight 112.6 kg [facility] 08-23-2024 08:15-0400 Body height 175.26 cm [facility] 08-23-2024 08:15-0400 Body mass index (BMI) [Ratio] 37 kg/m2 [facility] 08-23-2024 08:15-0400 Body weight 113.85 kg [facility] 08-23-2024 08:15-0400 Diastolic blood pressure 75 mm[Hg] [facility] 08-23-2024 08:15-0400 Heart rate 78 /min [facility] 08-23-2024 08:15-0400 Respiratory rate 16 /min [facility] 08-23-2024 08:15-0400 Systolic blood pressure 109 mm[Hg] [facility] 07-24-2023 13:05-0400 Body height 175.26 cm [facility] 07-24-2023 13:05-0400 Diastolic blood pressure 70 mm[Hg] [facility] 07-24-2023 13:05-0400 Systolic blood pressure 120 mm[Hg] [facility] 07-24-2023 13:03-0400 Body mass index (BMI) [Ratio] 34.5 kg/m2 [facility] 07-24-2023 13:03-0400 Body weight 106.14 kg [facility] 07-24-2023 13:03-0400 Heart rate 75 /min [facility] 07-24-2023 13:03-0400 Respiratory rate 18 /min [facility] 07-24-2023 13:03-0400 SaO2% (BldA) [Mass fraction] 94 % [facility] 07-20-2023 08:58-0400 Body height 175.3 cm Darion Lopes APRN - [employer] Work Phone: [facility] 07-20-2023 08:58-0400 Body mass index (BMI) [Ratio] 35 kg/m2 Darion Lopes APRN - [employer] Work Phone: [facility] 07-20-2023 08:58-0400 Body weight 107.5 kg Darion Lopes APRN - [employer] Work Phone: [facility] 07-20-2023 08:58-0400 Diastolic blood pressure 93 mm[Hg] Darion Lopes APRN - [employer] Work Phone: [facility] 07-20-2023 08:58-0400 Heart rate 66 /min Darion Lopes APRN - [employer] Work Phone: [facility] 07-20-2023 08:58-0400 Systolic blood pressure 143 mm[Hg] Darion Lopes APRN - [employer] Work Phone: [facility] 07-03-2023 08:21-0400 Body mass index (BMI) [Ratio] 34.8 kg/m2 [facility] 07-03-2023 08:15-0400 Body height 175.26 cm [facility] 07-03-2023 08:15-0400 Body weight 107.04 kg [facility] 07-03-2023 08:09-0400 Diastolic blood pressure 74 mm[Hg] [facility] 07-03-2023 08:09-0400 Heart rate 92 /min [facility] 07-03-2023 08:09-0400 SaO2% (BldA) [Mass fraction] 95 % [facility] 07-03-2023 08:09-0400 Systolic blood pressure 110 mm[Hg] [facility] 06-20-2023 10:55-0400 Body mass index (BMI) [Ratio] 34.8 kg/m2 [facility] 06-20-2023 10:55-0400 Body weight 107.04 kg [facility] 06-20-2023 10:55-0400 Diastolic blood pressure 74 mm[Hg] [facility] 06-20-2023 10:55-0400 Heart rate 92 /min [facility] 06-20-2023 10:55-0400 Respiratory rate 16 /min [facility] 06-20-2023 10:55-0400 Systolic blood pressure 110 mm[Hg] [facility] 06-14-2023 09:40-0400 Body height 175.3 cm Darion Bhat CNP Work Phone: [facility] [facility] 06-14-2023 09:40-0400 Body mass index (BMI) [Ratio] 33.97 kg/m2 Darion Lopes APRN - CORE MAN Work Phone: [facility] 06-14-2023 09:40-0400 Body weight 104.33 kg Darion Lopes APRN - CORE MAN Work Phone: [facility] 06-14-2023 09:40-0400 Diastolic blood pressure 79 mm[Hg] Darion Lopes APRN - CORE MAN Work Phone: [facility] 06-14-2023 09:40-0400 Heart rate 85 /min Darion Lopes APRN - CORE MAN Work Phone: [facility] 06-14-2023 09:40-0400 Systolic blood pressure 117 mm[Hg] Darion Lopes APRN - CORE MAN Work Phone: [facility] 06-06-2023 08:05-0400 Body temperature 98.2 [degF] Gisella Huang MD Work Phone: [facility] 06-06-2023 08:05-0400 Diastolic blood pressure 76 mm[Hg] Gisella Huang MD Work Phone: [facility] 06-06-2023 08:05-0400 Heart rate 96 /min Gisella Huang MD Work Phone: [facility] 06-06-2023 08:05-0400 Respiratory rate 20 /min Gisella Huang MD Work Phone: [facility] 06-06-2023 08:05-0400 SaO2% (BldA) [Mass fraction] 93 % Gisella Huang MD Work Phone: [facility] 06-06-2023 08:05-0400 Systolic blood pressure 116 mm[Hg] Gisella Huang MD Work Phone: [facility] 06-06-2023 06:00-0400 Body mass index (BMI) [Ratio] 34.48 kg/m2 Gisella Huang MD Work Phone: [facility] 06-06-2023 06:00-0400 Body weight 105.9 kg Gisella Huang MD Work Phone: [facility] 06-02-2023 11:12-0500 Body height 175.3 cm Gisella Huang MD Work Phone: [facility] 06-01-2023 13:28-0500 SaO2% (BldA) [Mass fraction] 98.7 % Gisella Huang MD Work Phone: [facility] 05-31-2023 08:34-0500 Body height 175.3 cm Gisella Huang MD Work Phone: [employer] [facility] 05-31-2023 08:34-0500 Body mass index (BMI) [Ratio] 36.18 kg/m2 Gisella Huang MD Work Phone: [facility] 05-31-2023 08:34-0500 Body weight 111.13 kg Gisella Huang MD Work Phone: [facility] 05-31-2023 08:34-0500 Diastolic blood pressure 92 mm[Hg] Gisella Huang MD Work Phone: [facility] 05-31-2023 08:34-0500 Heart rate 65 /min Gisella Huang MD Work Phone: [facility] 05-31-2023 08:34-0500 Systolic blood pressure 147 mm[Hg] Gisella Huang MD Work Phone: [facility] 05-19-2023 07:12-0500 Body height 175.26 cm [facility] 05-19-2023 07:12-0500 Body weight 109.76 kg [facility] 05-18-2023 07:38-0500 Body mass index (BMI) [Ratio] 35.7 kg/m2 [facility] 03-09-2023 09:46-0500 Body height 175.26 cm [facility] 03-09-2023 09:43-0500 Body mass index (BMI) [Ratio] 35.7 kg/m2 [facility] 03-09-2023 09:43-0500 Body weight 109.76 kg [facility] 03-09-2023 09:43-0500 Diastolic blood pressure 89 mm[Hg] [facility] 03-09-2023 09:43-0500 Heart rate 85 /min [facility] 03-09-2023 09:43-0500 Respiratory rate 20 /min [facility] 03-09-2023 09:43-0500 SaO2% (BldA) [Mass fraction] 91 % [facility] 03-09-2023 09:43-0500 Systolic blood pressure 134 mm[Hg] [facility] 06-16-2022 17:31-0400 Diastolic blood pressure 96 mm[Hg] [place] 06-16-2022 17:31-0400 Heart rate 77 /min [facility] 06-16-2022 17:31-0400 Respiratory rate 20 /min [facility] 06-16-2022 17:31-0400 SaO2% (BldA) [Mass fraction] 95 % [place] 06-16-2022 17:31-0400 Systolic blood pressure 142 mm[Hg] [place] 06-16-2022 13:39-0400 Body height 175.26 cm [facility] 06-16-2022 13:39-0400 Body mass index (BMI) [Ratio] 36.1 kg/m2 [place] 06-16-2022 13:39-0400 Body temperature 97.2 [degF] [facility] 06-16-2022 13:39-0400 Body weight 111.13 kg [facility] 04-16-2022 12:19-0500 Heart rate 67 /min [facility] 04-16-2022 12:19-0500 Respiratory rate 18 /min [facility] 04-16-2022 12:19-0500 SaO2% (BldA) [Mass fraction] 100 % [place] 04-16-2022 11:38-0500 Diastolic blood pressure 86 mm[Hg] [place] 04-16-2022 11:38-0500 Systolic blood pressure 111 mm[Hg] [place] 04-16-2022 10:19-0500 Body height 175.26 cm [facility] 04-16-2022 10:19-0500 Body mass index (BMI) [Ratio] 34.7 kg/m2 [place] 04-16-2022 10:19-0500 Body temperature 96.6 [degF] [facility] 04-16-2022 10:19-0500 Body weight 106.59 kg [facility] 06-25-2021 11:17-0400 Diastolic blood pressure 91 mm[Hg] [place] Work Phone: 06-25-2021 11:17-0400 Heart rate 56 /min [facility] Work Phone: 06-25-2021 11:17-0400 Respiratory rate 16 /min [facility] Work Phone: 06-25-2021 11:17-0400 SaO2% (BldA) [Mass fraction] 95 % [place] Work Phone: 06-25-2021 11:17-0400 Systolic blood pressure 134 mm[Hg] [place] Work Phone: 06-25-2021 07:25-0400 Body height 175.26 cm [facility] Work Phone: 06-25-2021 07:25-0400 Body mass index (BMI) [Ratio] 34.7 kg/m2 [place] Work Phone: 06-25-2021 07:25-0400 Body temperature 97.9 [degF] [facility] Work Phone: 06-25-2021 07:25-0400 Body weight 106.59 kg [facility] Work Phone: Encounters Encounter Date Encounter Type Care Provider Facility Start: 12-03-2024 End: 12-03-2024 ambulatory -Laboratory Start: 12-03-2024 End: 12-03-2024 Patient encounter procedure Candelario WHITESIDE -Laboratory Work Phone: Start: 12-03-2024 End: 12-03-2024 Patient encounter procedure Candelario WHITESIDE -[facility] Work Phone: Start: 12-03-2024 End: 12-03-2024 [facility] Start: 12-03-2024 End: 12-03-2024 [facility] Facility:[place] Start: 11-10-2024 End: 11-10-2024 Emergency department patient visit -Emergency Department Work Phone: Start: 08-23-2024 Patient encounter status [facility] Comment on above: Prostate surgery Sep Start: 08-23-2024 End: 08-23-2024 Patient encounter procedure Michelle WHITESIDE -[facility] Work Phone: Start: 08-23-2024 End: 08-23-2024 ambulatory [facility] Work Phone: Start: 04-12-2024 [facility] Start: 03-07-2024 End: 03-07-2024 Emergency department patient visit Facility:[place] Start: 07-26-2023 Registered [facility] Work Phone: Start: 07-24-2023 End: 07-24-2023 Patient encounter procedure [facility]-Laboratory Work Phone: Start: 07-24-2023 End: 07-25-2023 ambulatory [facility] Work Phone: Start: 07-24-2023 End: 07-25-2023 Discharged Recurring [facility] Work Phone: Start: 07-24-2023 End: 07-24-2023 Patient encounter procedure [facility] Work Phone: Start: 07-20-2023 Admission to [facility] Darion Lopes APRN - CHILO Work Phone: [facility] Start: 07-20-2023 End: 07-20-2023 ambulatory Darion Lopes APRN - CORE MAN Work Phone: [facility] Start: 07-20-2023 End: 07-20-2023 Postop follow up visit related to original px Darion Lopes APRN - CORE MAN Work Phone: [facility] Comment on above: S/P CABG (coronary a rtery bypass graft) (Primary Dx) Start: 07-17-2023 End: 07-17-2023 ambulatory [facility] Work Phone: Start: 07-17-2023 End: 07-17-2023 Patient encounter procedure [facility] Work Phone: Start: 07-11-2023 Telephone encounter Karen Lynn RN [facility] Comment on above: Post-op Problem Start: 07-10-2023 Registered [facility] Work Phone: Start: 07-06-2023 End: 07-06-2023 Postop follow up visit related to original px Darion Lopes ASSISTANT PROJECT MANAGER - CORE MAN Work Phone: [facility] Comment on above: S/P CABG (coronary a rtery bypass graft) (Primary Dx) Start: 07-06-2023 End: 07-06-2023 ambulatory [facility] Start: 07-05-2023 Registered [facility] Work Phone: Start: 07-03-2023 End: 07-03-2023 ambulatory [facility] Work Phone: Start: 07-03-2023 End: 07-03-2023 Patient encounter procedure [facility] Work Phone: Start: 06-28-2023 Telephone encounter Jean Rdz ASSISTANT PROJECT MANAGER - CORE MAN Work Phone: [facility] Comment on above: Post-op Follow-up; P ost-op Problem Start: 06-27-2023 Telephone encounter Gisella cespedes MD Work Phone: [facility] Comment on above: leg pain Start: 06-20-2023 End: 06-20-2023 Patient encounter procedure [facility] Work Phone: Start: 06-14-2023 End: 06-14-2023 ambulatory [facility] Start: 06-14-2023 End: 06-14-2023 Postop follow up visit related to original px Darion Lopes ASSISTANT PROJECT MANAGER - CORE MAN Work Phone: [facility] Comment on above: S/P CABG (coronary a rtery bypass graft) (Primary Dx); CAD, multiple vessel Start: 06-09-2023 Telephone encounter Gisella cespedes MD Work Phone: [facility] Comment on above: post op pain Start: 06-07-2023 ambulatory NONE PHYSICIAN Facility :R Start: 06-06-2023 Orders Only Jean Melvin ky ASSISTANT PROJECT MANAGER - CORE MAN Work Phone: [facility] Comment on above: Retention of urine ( Primary Dx) Start: 05-31-2023 End: 06-06-2023 Encounter for other preprocedural examination GISELLA HUANG [facility] Start: 05-31-2023 End: 06-06-2023 Evaluation and management of inpatient CRISSY ENGLE [facility] Start: 05-31-2023 End: 06-06-2023 Evaluation and management of inpatient Gisella Huang MD Work Phone: [facility] Cardiac Thoracic Vascular Intensive Care Unit CTV ICU T1 Comment on above: 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, unspecified vessel or lesion type (HCC) (Primary Dx); Preoperative clearance; S/P CABG (coronary artery bypass graft) Start: 05-31-2023 End: 06-06-2023 Preoperative state Gisella Huang MD Work Phone: [facility] Work Phone: Start: 05-31-2023 End: 05-31-2023 ambulatory [facility] Start: 05-31-2023 End: 05-31-2023 Office consultation new/estab patient 80 min Gisella Huang MD Work Phone: [facility] Comment on above: CAD, multiple vessel (Primary Dx); Unstable angina (CMS/HCC) (HCC) Start: 05-19-2023 Non-patient / Non-visit 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 Work Phone: Start: 06-16-2022 End: 06-16-2022 Emergency department patient visit [place]-Emergency Department Start: 04-16-2022 End: 04-16-2022 Emergency department patient visit [place]-Emergency Department Start: 06-25-2021 End: 06-25-2021 Emergency department patient visit [place]-Emergency Department Start: 07-18-2018 Patient encounter procedure Facility:UNKNOWN Procedures Date Procedure Procedure Detail Performing Clinician Start: 11-10-2024 Urnls dip stick/tabl et reagent auto microscopy Start: 11-10-2024 Estimated creatinine clearance Start: 11-10-2024 Urine culture [facility] Start: 07-17-2023 Anaerobic microbial culture Start: 07-17-2023 Investigation of transfusion reaction Start: 07-17-2023 Microbial culture, routine Start: 07-04-2023 History of coronary artery bypass grafting S/P CABG (coronary artery bypass graft) Darion Lopes APRN - CORE MAN Work Phone: Start: 06-06-2023 Radiologic exam ches t single view Darion Bhat CNP Work Phone: Start: 06-06-2023 Basic metabolic pane l calcium total Darion Bhat CORE MAN Work Phone: Start: 06-05-2023 Urnls dip stick/tabl et reagent auto microscopy Lake Garza MD Work Phone: Start: 06-05-2023 Basic metabolic pane l calcium total Darion Lopes APRN - CORE MAN Work Phone: Start: 06-05-2023 Radiologic exam ches t single view Darion Lopes APRN [facility] Work Phone: Start: 06-04-2023 Radiologic exam ches t single view Darion Lopes APRN - CORE MAN Work Phone: Start: 06-04-2023 Compatibility each u nit electronic Darion Lopes APRN - CORE MAN Work Phone: Start: 06-04-2023 End: 06-04-2023 Basic metabolic panel calcium total Darion Lopes APRN - CORE MAN Work Phone: Start: 06-03-2023 Glucose quantitative blood xcpt reagent strip Gisella Huang MD Work Phone: Start: 06-03-2023 Ecg routine ecg w/le ast 12 lds trcg only w/o i&r Darion Lopes APRN - CORE MAN Work Phone: Start: 06-03-2023 Radiologic exam ches t single view Darion Lopes APRN [facility] Work Phone: Start: 06-03-2023 Basic metabolic pane l calcium total Darion Lopes APRN [facility] Work Phone: Start: 06-02-2023 Glucose quantitative blood xcpt reagent strip Gisella Huang MD Work Phone: Start: 06-02-2023 Glucose quantitative blood xcpt reagent strip Gisella Huang MD Work Phone: Start: 06-02-2023 Ecg routine ecg w/le ast 12 lds trcg only w/o i&r Darion Askewdavis SKY - CORE MAN Work Phone: Start: 06-02-2023 Glucose quantitative blood xcpt reagent strip Gisella Huang MD Work Phone: Start: 06-02-2023 Radiologic exam ches t single view Darion Lopes APRN - CORE MAN Work Phone: Start: 06-02-2023 Glucose quantitative blood xcpt reagent strip Gisella Huang MD Work Phone: Start: 06-02-2023 End: 06-02-2023 Calcium ionized Darion Bhat CNP Work Phone: Start: 06-02-2023 Basic metabolic pane l calcium total Darion Bhat CNP Work Phone: Start: 06-01-2023 End: 06-01-2023 Glucose [...] t 2d w/prb img acquisj i&r Darion Bhat CNP Work Phone: Start: 06-01-2023 Radiologic exam ches t single view Darion Bhat CNP Work Phone: Start: 06-01-2023 History of coronary [...] i&r Darion Bhat CNP Work Phone: Start: 06-01-2023 End: 06-01-2023 Basic [...] 05-31-2023 Thromboplastin time partial plasma/whole blood Darion Lopes APRN - CORE MAN Work Phone: Start: 05-31-2023 Antibody screen GISELLA HINES Comment on above: Performed By: #### L [id number] ####[employer] Advisor: ALONZO ALMODOVAR ([id number])[facility] BLOOD [facility] ([address] Start: 05-31-2023 ABO and Rh group [Ty pe] in Blood by Confirmatory method Myrtle Maier APRN - CORE MAN Work Phone: Start: 05-31-2023 Assay of troponin quantitative Darion Bhat CNP Work Phone: Start: 05-31-2023 Blood typing serologic abo Myrtle Maier APRN - CORE MAN Work Phone: Start: 05-31-2023 Ct thorax w/o contra st material Darion Bhat CNP Work Phone: Start: 05-31-2023 Ecg routine ecg w/le ast 12 lds trcg only w/o i&r Darion Bhat CNP Work Phone: Start: 05-31-2023 Iadna s aureus methi cillin resist amp probe tq Darion Lopes APRN - CORE MAN Work Phone: Start: 05-31-2023 Non-invas physiologi c std extremity art 2 level Darion Lopes APRN - CORE MAN Work Phone: Start: 05-31-2023 End: 05-31-2023 Comprehensive metabolic panel Darion Lopes APRN - [facility] Work Phone: Start: 05-17-2023 Plain chest X-ray [facility] Start: 06-16-2022 Plain chest X-ray Start: 04-16-2022 [...] artery bypass graft) Darion Lopes APRN - [facility] Work Phone: History of coronary artery bypass grafting S/P CABG (coronary artery bypass graft) Darion Lopes APRN - [facility] Work Phone: History of coronary artery bypass grafting S/P CABG x 5 [facility] History of coronary artery bypass grafting S/P CABG (coronary artery bypass graft) Darion Lopes APRN - CORE MAN Work Phone: SARS-CoV-2 & FLU Ant igen (Rapid) SARS-CoV-2 & FLU Ant igen (Rapid) Plan of Treatment Date Care Activity Detail Author Start: 09-29-2027 DTaP/Tdap/Td Vaccines (2 - Td or Tdap) DTaP/Tdap/Td Vaccines (2 - Td or Tdap) [facility] Start: 11-10-2024 [place] Start: 11-10-2024 [place] Start: 11-10-2024 Bacteria identified in Urine by Culture Urine Culture [place] Start: 05-30-2024 Diabetes mellitus screening Diabetes Screening [facility] Start: 05-30-2024 Screening for malignant neoplasm of lung Lung Cancer Screening [facility] Start: 11-26-2023 Influenza vaccination Influenza Vaccine (Season Ended) [facility] Start: 07-06-2023 End: 07-06-2023 Telemedicine consultation with patient 07/06/2023 2:30 PM EDT Telemedicine [facility] [address] [place] [phone] Darion Lopes APRN - CORE MAN [address] [place] [address] [facility] Start: 07-03-2023 Patient referral to [facility] Start: 06-20-2023 Patient referral [place] Work Phone: Start: 06-14-2023 End: 06-14-2023 Patient encounter procedure 06/14/2023 10:30 AM EDT Office Visit [facility] [address] [place] [phone] Darion Lopes APRN - CORE MAN [address] [place] [address] [facility] Start: 06-01-2023 End: 06-01-2023 Anesthesia consultation 06/01/2023 7:30 AM EST Anesthesia Event [facility] OR [address] [place] [id number] Gertrudis Fritz APRN [facility] [address] [place] [address] [facility] Start: 06-01-2023 End: 06-01-2023 Cabg w/arterial graft three arterial grafts CORONARY ARTERY BYPASS GRAFT X3 ARTERIAL GRAFTS Atherosclerotic heart disease of [place] coronary artery without angina pectoris 06/01/2023 7:30 AM EST [facility] Operating Room Start: 06-01-2023 End: 06-01-2023 Echo transesophag r-t 2d w/prb img acquisj i&r Echocardiography transesophageal real-time Atherosclerotic heart disease of [place] coronary artery without angina pectoris 06/01/2023 7:30 AM EST [facility] Start: 06-01-2023 End: 06-01-2023 Evaluation and management of inpatient 06/01/2023 7:30 AM EST - 06/01/2023 12:30 PM EST Surgery [facility] MAIN OR [address] [place] [phone] Gisella Huang MD [address] [place] [address] CORONARY ARTERY BYPASS GRAFT, TRANSESOPHAGEAL ECHOCARDIOGRAM [98573 (CPT )] [facility] Comment on above: CORONARY ARTERY BYPASS GRAFT, TRANSESOPH AGEAL ECHOCARDIOGRAM [08384 (CPT )] Start: 05-19-2023 Patient referral [place] Work Phone: Start: 05-19-2023 Patient discharge [place] Start: 11-25-2022 COVID-19 Vaccine ( season) COVID-19 Vaccine ( season) [facility] Start: 11-25-2022 Influenza vaccination Influenza Vaccine (#1) [facility] Start: 06-16-2022 [place] Start: 04-16-2022 [place] Start: 2019 RSV Immunization aged 60 or older (1 - 1-dose 60+ series) RSV Immunization aged 60 or older (1 - 1-dose 60+ series) [facility] Start: 10-06-2009 Screening for malignant neoplasm of lung Lung Cancer Screening [facility] Start: 10-06-2009 Zoster Vaccines (1 of 2) Zoster Vaccines (1 of 2) [facility] Start: 10-06-1978 Hepatitis A Vaccines (1 of 2 - Risk 2-dose series) Hepatitis A Vaccines (1 of 2 - Risk 2-dose series) [facility] Start: 10-06-1977 Hepatitis C screening Hepatitis C Screening [facility] Start: 1971 Depression Screening Depression Screening [facility] Start: 10-06-1965 Pneumococcal Vaccine: Pediatrics (0 to 5 Years) and At-Risk Patients (6 to 64 Years) (1 of 2 - PCV) Pneumococcal Vaccine: Pediatrics (0 to 5 Years) and At-Risk Patients (6 to 64 Years) (1 of 2 - PCV) [facility] Start: 10-06-1960 MMR Vaccines (1 of 1 - Standard series) MMR Vaccines (1 of 1 - Standard series) [facility] Start: 04-08-1960 COVID-19 Vaccine (#1) COVID-19 Vaccine (#1) [facility] Start: 1959 HIV screening HIV Screening [facility] Start: 1959 Lipid panel Lipid Panel [facility] Start: 1959 Screening for malignant neoplasm of colon [facility] Hepatic function panel [facility] Lipid 1996 panel - Serum or Plasma [place] Patient Education [facility] Work Phone: Patient referral [facility] Work Phone: Urine culture [facility] Immunizations Immunization Date Immunization Notes Care Provider Fa cility 09-28-2017 tetanus toxoid, redu caren diphtheria toxoid, and acellular pertussis vaccine, adsorbed [place] 12-24-2015 influenza virus vaccine, unspecified formulation Gisella Huang MD Work Phone: [facility] Payers Date Payer Category Payer Unknown [id number] 2023 Self-pay [id number] 2023 Unknown [id number] 2023 Unknown [id number] 2013 Unknown [id number] 1959 Unknown [id number] 2.16.8 [id number] 1959 Unknown [id number] 2.16.8 [id number] Medicare [id number] Unknown [id number] Unknown [id number] Unknown [id number] 2.16.8 [id number] Unknown [id number] 2.16.8 [id number] Unknown [id number] 2.16.8 [id number] Unknown [id number] 2.16.8 [id number] Unknown [id number] 2.16.8 [id number] Unknown [id number] [id number] [id number] Social History Date Type Detail Facility Start: 06-25-2021 End: 07-03-2023 Tobacco smoking status [facility] Unknown if ever smoked [place] Start: 11-01-2019 Occasional [facility] Start: 11-01-2019 None [facility] Start: 1960 Sex Assigned At Male W [facility] Start: 05-31-2023 End: 11-10-2024 Tobacco smoking status ORIS Ex-smoker [facility] End: 03-27-2014 History of tobacco use Current smoker [facility] End: 03-27-2014 History of tobacco use Cigarette Smoker [facility] Start: 05-31-2023 End: 06-06-2023 Cigarettes smoked current (pack per day) - Reported 1.5 [facility] Start: 05-31-2023 Tobacco use and exposure Smoke less tobacco non-user [facility] Start: 05-31-2023 End: 07-20-2023 Alcohol intake Current drinker of alcohol (finding) [facility] Start: 05-31-2023 End: 06-06-2023 Humiliation, Afraid, Rape, and Kick questionnaire [HARK] [facility] Within the last year , have you been afraid of your partner or ex-partner? No [facility] How often to you hav e a drink containing alcohol? 2-3 time sa week [facility] How many standard dr inks containing alcohol do you have on a typical day? 1 or 2 [facility] How often do you hav e 6 or more drinks on 1 occasion? Never [facility] Start: 1960 Sex Assigned At Not on file [facility] [place] Has the electric, ga s, [employer], or water [employer] threatened to shut off services in your home in past 12Mo Patient declined [facility] Medical Equipment Procedure Code Equipment Code Equipment [...] is not achieving the goal of therapy [id number] Start: 06-01-2023 End: 06-02-2023 Mental Status Date Assessment Result Facility 11-10-2024 Cognitive function Voice/Name [facility] Work Phone: 06-16-2022 Cognitive function Voice/Name [facility] Work Phone: 04-16-2022 Cognitive function Level Of Cons ciousness Awake;Alert;Appropriate;Follow s Commands [place] Work Phone: 06-25-2021 Cognitive function Level Of Cons ciousness Awake;Alert;Appropriate;Follow s Commands [place] Work Phone: Clinical Notes 06-16-2022 to 12-03-2024 Note Date & Type Note Facility 12-03-2024 Evaluation note Diagnosis Onset Date Resolution Atherosclerosis of coronary artery of [place] heart without angina pectoris chronic December 03, 2024 12:49pm Hyperlipidemia chronic December 03, 2024 12:49pm Hypertension chronic November 12:49pm S/P CABG x June 01, 2023 chronic December 03, 2024 12:49pm [place] Work Phone: 1(873) 571-628605-30-2025 Evaluation note* Diagnosis Onset Date Resolution Status Admit Date Hyperlipidemia chronic August 23, 2024 8:09am Hypertension chronic August 23 8:09am S/P CABG x June 01, 2023July 8:09am [place] Work Phone: 1(706) 521-912805-30-2025 Evaluation note* Diagnosis Onset Date Resolution Status Admit Date Hyperlipidemia chronic August 23, 2024 8:09am Hypertension chronic August 23 8:09am S/P CABG x June 01, 2023July 8:09am Atherosclerosis of coronary artery of [place] heart without angina pectoris chronic Novembe r 2024 12:49pm Hyperlipidemia chronic December 03, 2024 12:49pm Hypertension november 12:49pm S/P CABG x June 01, 2023 chronic Septemb er 2024 12:49pm [facility] Work Phone: 1(899) 125-591504-25-2024 History of Present illness Narrative* Darion Lopes, JOSE DANIEL - CORE MAN - 07/20/2023 9:00 AM EDT Images from the original note were not included. [facility]: [facility] [address] [facility] [address] [facility] [address] Dept: [phone] Dept Loc: [phone] Visit type: Established patient - in person [...] Patient has follow up with Cards - [place] Finish 10 day course of Abx - [...] [facility] Subjective HPI: 62 y.o. 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 Pmhx including RCA and PDA stents in 2008, HTN, Hxof NSVT, Hx of PE, former tobacco use and current ETOH use. He was see in OP setting 05/31/23 and noted to have unstable angina with palpitations and he was direct admitted for urgent CABG. Preoperative testing was completed and he consented to surgical revascularization. Of note patient lives alone at home. Former [place] [employer] and deals primary [place] Patient underwent surgery on 06/01/23. Patient did well post-op, only complication was urinary retention for which a isaac wasre-placed and Urology consulted. A referral was placed to Urology in [place] for him to follow up wi . He was discharged home on POD#05. 06/14/23: [...] catheter noted dark urine yesterday has cleared sincehas follow-up scheduled with urology due to urinary retention July 14 through the [place]. Patient would like to establish with Dr. Gaines at [place] will forward appropriate documents to his office [...] at this time he will call with anyquestions or concerns no scheduled follow-up needed will follow-up as needed 07/11/23: Seen by Andrea-ayan - started on Abx due to ?sternal infection - opening at top of incision. Patient also noticing Popping in chest - inperson visit made 07/20/23: Patient presents today for postop follow-up. Had called in with complaints of sternal popping pain and open midsternal incision. Per patient cardiology placed on 10-day course of antibioticsand sent cultures. He will finish 10-day course [...] of weight restrictions physical therapy. He verbalized understa nding. Okay for patient to resume cardiac rehab. Discussed treatment options we will hold off on any diagnostic imaging at this time as pain/popping/clicking is not replicated with palpation of chest. He is agreeable to plan and will call with any concerns or new signs or symptoms. CTS will plan tofollow-up as needed instructed patient to follow-up with [...] and oriented to person, place, and time. [facility] 07/20/23 Labs/Imaging/Testing: reviewed EMR, see A&P [...] This note may have been dictated using [employer] Practice Edition 2.6 and/or [employer] Voice Recognition Feature. The document was proofread, however unrecognized voice recognition actuarial internship errors may be present. documented in this [place] [id number] Instructions* Patient Instructions* JOSE DANIEL Sultana CNP - 07/20/2023 9:00 AM EDT Weight restriction measures 5-8 weeks from date of surgery- 20lbs weight restriction approximate end date: 07/26/23 documented in this [place] [id number] Telephone encounter Note* Telephone Encounter - Marie Mckee - 07/11/2023 3:47 PM EDT LVM to schedule appointment. [place] [id number] Miscellaneous Notes* Telephone Encounter - Marie Mckee - 07/11/2023 3:47 PM EDT LVM to schedule appointment. * Telephone Encounter - JOSE DANIEL Sultana CNP - 07/11/2023 3:34 PM EDT Can you schedule inperson visit with me next week. Thanks * Telephone Encounter - Karen Lynn RN - 07/11/2023 3:07 PM EDT Pt called and stated he saw Cardiology at [place] who noticed an opening at the top of pt sternum. There was concern for infection so pt was put on antibiotics. He also states that he feels a poppingin his chest when he moves his hips. He denies any pain. Please advise. 05/31/23: CABGx5 (CAMPBELL to LAD, Free left radial to OM2, SVG to right pDA, SVG to Diag1, SVG to Diag2)left radial harvest R leg EVH and PAM with LILLIAN Rubio Note 07/06/23: Called patient for postop follow-up. He is doing relatively well has had follow- up with urology andcardiology. Urology pulled isaac but the patient is [...] not following midsternal precautions completely as he wasout taking a blueberry lott up the other day. Explained risks involved and not following midsternalprecautions he verbalized understanding. No other needs at this time he will call with any questions or concerns no scheduled follow-up needed will follow-up as needed documented in this encounterSHolzer Health [id number] Telephone encounter Note* Telephone Encounter - JOSE DANIEL Sultana CNP - 07/11/2023 3:34 PM EDT Can you schedule inperson visit with me next week. Thanks [id number] Telephone encounter Note* Telephone Encounter - Karen Lynn RN - 07/11/2023 3:07 PM EDT Pt called and stated he saw Cardiology at [place] who noticed an opening at the top of pt sternum. There was concern for infection so pt was put on antibiotics. He also states that he feels a poppingin his chest when he moves his hips. He denies any pain. Please advise. 05/31/23: CABGx5 (CAMPBELL to LAD, Free left radial to OM2, SVG to right pDA, SVG to Diag1, SVG to Diag2)left radial harvest R leg EVH and PAM with Dr. Sal Lopes APRN-CHILO Note 07/06/23: Called patient for postop follow-up. He is doing relatively well has had follow- up with urology andcardiology. Urology pulled isaac but the patient is [...] not following midsternal precautions completely as he wasout taking a blueberry lott up the other day. Explained risks involved and not following midsternalprecautions he verbalized understanding. No other needs at this time he will call with any questions or concerns no scheduled follow-up needed will follow-up as needed [id number] History of Present illness Narrative* JOSE DANIEL Sultana CNP - 07/06/2023 2:30 PM EDT Images from the original note were not included. [facility]: [facility] [employer] [facility] [address] [facility] [address] Dept: [phone] Dept Loc: [phone] Visit type: Established patient - Virtual Surgery/Procedure: [...] removed - but is straight cathing - [place] Urology managing. -Surgical Incisions: Per patient healing [...] Crissy Engle DO Cardiology: Dr. Gaines Urology: [place] Patient was seen today via Telehealth by agreement and consent. I used the following Telehealth technology: Audio capability only. Total length of call 14 minutes. The patient was offered and advisedvideo for a more comprehensive evaluation, but the patient declined or was unable to use video. Patient location: Patient Location: Home. This patient encounter is appropriate and reasonable underthe circumstances: patient request . The patient has [...] to contact this office for worsening conditions orproblems, and seek emergency medical treatment and/or call 911 if the patient deems either necessary. The patient stated that they are currently in the [facility]. If the patient is a minor, permission has been obtained by the parent or guardian for the patient to receive medical care at this visit. Patient identification was verified at the start of the visit: yes Total time spent on this encounter: 19 Subjective HPI: 62 y.o. 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 Pmhx including RCA and PDA stents in 2008, HTN, Hxof NSVT, Hx of PE, former tobacco use and current ETOH use. He was see in OP setting 05/31/23 and noted to have unstable angina with palpitations and he was direct admitted for urgent CABG. Preoperative testing was completed and he consented to surgical revascularization. Of note patient lives alone at home. Former [place] [employer] and deals primary for healthcare through [place] Patient underwent surgery on 06/01/23. Patient did well post-op, only complication was urinary retention for which a isaac wasre-placed and Urology consulted. A referral was placed to Urology in [place] for him to follow up . He was discharged home on POD#05. 06/14/23: [...] catheter noted dark urine yesterday has cleared sincehas follow-up scheduled with urology due to urinary retention July 14 through the [place]. Patient would like to establish with Dr. Gaines at [place] will forward appropriate documents to his office [...] at this time he will call with anyquestions or concerns no scheduled follow-up needed will [...] pallor and rash. Neurological: Positive for numbness (EV site). Objective Patient reported: none noted Wt [...] This note may have been dictated using [employer] Practice Edition 2.6 and/or [employer] Voice Recognition Feature. The document was proofread, however unrecognized voice recognition actuarial internship errors may be present. documented in this [facility]04-03-2024 Telephone encounter Note* Telephone Encounter - JOSE DANIEL Thornton CNP - 06/28/2023 3:49 PM EDT Called patient, see telephone encounter. [place] [id number] Miscellaneous Notes* Telephone Encounter - JOSE DANIEL Thornton CNP - 06/28/2023 3:49 PM EDT Called patient, see telephone encounter. * Telephone Encounter - Vianey Fitch MA - 06/28/2023 2:08 PM EDT Patient called in wanting a work release dated for MondayJuly 02 with no restrictions. Also would like message about leg pain addressed. In addition he is also c/o hand going numb and turning a white to blue color and this of concern tohim if this could be addressed as well. Please call * Telephone Encounter - Karen Lynn RN - 06/27/2023 3:58 PM EDT Pt states he is experiencing intermittent stabbing pain and continuous heaviness on his right outerthigh, on EVH leg. Pt is currently taking Tylenol 1000 mg BID, Motrin 800 mg BID, Motrin 1600 mg atbedtime. Pt states the pain is not managed. [...] right pDA, SVG to Diag1, SVG to Diag2)left radial harvest R leg EVH and PAM with Dr. Sal Lopes, ASSISTANT PROJECT MANAGER-CORE MAN Note 06/14/23 Patient presents today for postop open heart follow-up. He is doing well postoperatively has been walking multiple times a day following midsternal precautions. He does want to drive (discussed with surgeon), recommended not driving until 3 weeks from surgery. Risks discussed with driving earlier. P atient verbalized understanding. Surgical incisions healing appropriate no signs of infection or drainage noted. Patient still has Isaac catheter noted dark urine yesterday has cleared since has follow-up scheduled with urology due to urinary retention July 14 through the [place]. Patient would like toestablish with Dr. Gaines at [place] will forward appropriate documents to his office after this visit. Pain is controlled no other needs at this time patient to call with any question concerns we will plan virtual visit in 3 weeks. Post-Operative Pain Management: Over The Counter-Tylenol (acetaminophen) 500 mg 1-2 tablets every 6 hours. No more than 4,000 mg in24 hour period. Over The Counter-Motrin (ibuprofen) 200-400 mg by mouth every 4-6 hours (or) 600-800mg every 8 hours. No more than 3,200 mg per day. Over The Counter-pain patches (Salon pas) may be used as needed next to incision but not directly on your incision. Ice packs may be applied for 20 minutes, then off for at least 20 minutes before reapplying. * Telephone Encounter - Vanessa Sparks MA - 06/27/2023 12:44 PM EDT Terry called in and is having some pain in his left hip to knee on the outside. Feels like it falls asleep and then had stabbing pain. Wakes him from his sleep. Please call him back to discuss. documented in this [facility]04-03-2024 Telephone encounter Note* Telephone Encounter - Jean Sanchez APRN - CORE MAN - 06/28/2023 3:24 PM EDT @LOGO@ [facility]: [facility] [address] [facility] [address] [facility] [address] Dept: [phone] Dept Loc: [phone] Visit type: Established patient Reason for Visit: [...] DO Subjective HPI: 62 y.o. 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 Pmhx including RCA and PDA stents in 2008, HTN, Hx of NSVT, Hx of PE, former tobacco use and current ETOH use. He was see in OP setting 05/31/23 and noted tohave unstable angina with palpitations and he was direct admitted for urgent CABG. Preoperative testing was completed and he consented to surgical revascularization. Of note patient lives alone at home. 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 Patient underwent surgery on 06/01/23. Patient did well post-op, only complication was urinary retention for which a isaac was re-placed and Urology consulted. A referral was placed to Urology in [place] for him to follow up with. He [...] catheter noted dark urine yesterday has cleared sincehas follow-up scheduled with urology due to urinary retention [place] 14 through the [place]. Patient would like to establish with Dr. Gaines at [place] will forward appropriate documents to his office [...] pain is located around the sites on themedial portion of the leg, near incisions. States that sometimes he is awaken from sleep with a sharp shooting pain in this area. Seems to be improved with ibuprofen use. Otherwise post-op pain seemsto be well controlled. He wants to stop taking acetaminophen. He has been experiencing intermittentsensation in bilateral hands, where his hands become numb, tingly and cold. States they also turn white and bluish. Sometimes happens only on one side or the other or both at the same time. Seems to happen more in his right hand (opposite radial harvest). Lastly, patient wanted to ask about returning to work. 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 [address] Dept: [phone] Dept Loc: [phone] Visit type: Established patient Reason for Visit: [...] DO Subjective HPI: 62 y.o. 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 Pmhx including RCA and PDA stents in 2008, HTN, Hx of NSVT, Hx of PE, former tobacco use and current ETOH use. He was see in OP setting 05/31/23 and noted tohave unstable angina with palpitations and he was direct admitted for urgent CABG. Preoperative testing was completed and he consented to surgical revascularization. Of note patient lives alone at home. 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 Patient underwent surgery on 06/01/23. Patient did well post-op, only complication was urinary retention for which a isaac was re-placed and Urology consulted. A referral was placed to Urology in [place] for him to follow up with. He [...] catheter noted dark urine yesterday has cleared sincehas follow-up scheduled with urology due to urinary retention July 14 through the [place] Patient would like to establish with Dr. Gaines at [place] will forward appropriate documents to his office [...] pain is located around the sites on themedial portion of the leg, near incisions. States that sometimes he is awaken from sleep with a sharp shooting pain in this area. Seems to be improved with ibuprofen use. Otherwise post-op pain seemsto be well controlled. He wants to stop taking acetaminophen. He has been experiencing intermittentsensation in bilateral hands, where his hands become numb, tingly and cold. States they also turn white and bluish. Sometimes happens only on one side or the other or both at the same time. Seems to happen more in his right hand (opposite radial harvest). Lastly, patient wanted to ask about returning to work. 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 Data Reviewed and Summarized Labs/Imaging/Testing: reviewed EMR, see A&P for pertinent diagnostic results related to office visit JOSE DANIEL Rose CNP documented in this [facility]04-03-2024 Telephone encounter Note* Telephone Encounter - Vianey Fitch MA - 06/28/2023 2:08 PM EDT Patient called in wanting a work release dated for MondayJuly 02 with no restrictions. Also would like message about leg pain addressed. In addition he is also c/o hand going numb and turning a white to blue color and this of concern tohim if this could be addressed as well. Please call [facility] [id number] Telephone encounter Note* Telephone Encounter - Karen Lynn RN - 06/27/2023 3:58 PM EDT Pt states he is experiencing intermittent stabbing pain and continuous heaviness on his right outerthigh, on EVH leg. Pt is currently taking Tylenol 1000 mg BID, Motrin 800 mg BID, Motrin 1600 mg atbedtime. Pt states the pain is not managed. [...] right pDA, SVG to Diag1, SVG to Diag2)left radial harvest R leg EVH and PAM with Dr. Sal Lopes, ASSISTANT PROJECT MANAGER-CORE MAN Note 06/14/23 Patient presents today for postop open heart follow-up. He is doing well postoperatively has been walking multiple times a day following midsternal precautions. He does want to drive (discussed with surgeon), recommended not driving until 3 weeks from surgery. Risks discussed with driving earlier. P atient verbalized understanding. Surgical incisions healing appropriate no signs of infection or drainage noted. Patient still has Isaac catheter noted dark urine yesterday has cleared since has follow-up scheduled with urology due to urinary retention [place] 14 through the [place]. Patient would like toestablish with Dr. Gaines at [place] will forward appropriate documents to his office after this visit. Pain is controlled no other needs at this time patient to call with any question concerns we will plan virtual visit in 3 weeks. Post-Operative Pain Management: Over The Counter-Tylenol (acetaminophen) 500 mg 1-2 tablets every 6 hours. No more than 4,000 mg in24 hour period. Over The Counter-Motrin (ibuprofen) 200-400 mg by mouth every 4-6 hours (or) 600-800mg every 8 hours. No more than 3,200 mg per day. Over The Counter-pain patches (Salon pas) may be used as needed next to incision but not directly on your incision. Ice packs may be applied for 20 minutes, then off for at least 20 minutes before reapplying. [facility] [id number] Telephone encounter Note* Telephone Encounter - Vanessa Sparks MA - 06/27/2023 12:44 PM EDT Terry called in and is having some pain in his left hip to knee on the outside. Feels like it falls asleep and then had stabbing pain. Wakes him from his sleep. Please call him back to discuss. [facility] [id number] History of Present illness Narrative* Darion Lopes APRN - CHILO - 06/14/2023 10:30 AM EDT Images from the original note were not included. [facility]: [facility] [employer] [facility] [address] Dept: [phone] Dept Loc: [phone] Visit type: Established patient - in person [...] end date: 07/26/23 Treatment Team: PCP: Crissy Enlge DO Cardiology: Dr. [facility] [facility] Subjective HPI: 62 y.o. 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 Pmhx including RCA and PDA stents in 2008, HTN, Hxof NSVT, Hx of PE, former tobacco use and current ETOH use. He was see in OP setting 05/31/23 and noted to have unstable angina with palpitations and he was direct admitted for urgent CABG. Preoperative testing was completed and he consented to surgical revascularization. Of note patient lives alone at home. Former [place] [employer] and deals primary [place] Patient underwent surgery on 06/01/23. Patient did well post-op, only complication was urinary retention for which a isaac wasre-placed and Urology consulted. A referral was placed to Urology in [place] for him to follow up wi . He was discharged home on POD#05. 06/14/23: [...] catheter noted dark urine yesterday has cleared sincehas follow-up scheduled with urology due to urinary retention July 14 through the [place]. Patient would like to establish with Dr. Gaines at [place] will forward appropriate documents to his office [...] This note may have been dictated using [employer] Practice Edition 2.6 and/or [employer] Voice Recognition Feature. The document was proofread, however unrecognized voice recognition actuarial internship errors may be present. documented in this [facility]03-20-2024 Instructions* Patient Instructions* JOSE DANIEL Sultana CNP - 06/14/2023 10:30 AM EDT Yes weight restriction measures 1-4 weeks from date of surgery- 10lbs weight restriction: 06/28/23 5-8 weeks from date of surgery- 20lbs weight restriction approximate end date: 07/26/23 documented in this [facility]03-15-2024 Telephone encounter Note* Telephone Encounter - Vanessa Sparks MA - 06/09/2023 12:53 PM EDT Patient called in and is experiencing some chest discomfort. He said it comes and goes, not sure ifhe is over doing it. Nervous due to living alone and worried something may happen. Please call him back to discuss. [phone] [facility] [id number] Miscellaneous Notes* Telephone Encounter - Vanessa Sparks MA - 06/09/2023 12:53 PM EDT Patient called in and is experiencing some chest discomfort. He said it comes and goes, not sure ifhe is over doing it. Nervous due to living alone and worried something may happen. Please call him back to discuss. [phone] documented in this [facility]03-12-2024 History of Present illness Narrative* Domitila Herrera RD - 06/06/2023 11:56 AM EDT Nutrition Note Type and Reason for Visit: [...] and cholesterol, reading nutrition labels, etc. Provided [facility] Diet for Heart Health handout for reference as well as [facility] phone number. Pt's questions wereanswered to his satisfaction and he verbalized understanding Domitila Herrera RD, LD Contact: *[phone] or via OKWave chat * Ivy Garcia - 06/06/2023 9:57 AM EDT Images from the original note were not included. PHYSICAL THERAPY [facility] Treatment Note Name/MRN: Terry Lacy ([id number]) Date of : 1960 Age: 62 y.o. [...] mobility with no unsteadiness or LOB and maintainssternal precautions well. Instructed patient to keep doing [...] reps each AROM Other exercises 2: IS 6966-7918 mL x4 Bed Mobility Supine to sit: [...] place, call light within reach, and no alarmsengaged upon entry Restraints: No Education Education Given [...] Minutes 14 Timed Code Treatment Minutes: (GT) Ivy Sidhubalbir, SPTA This treatment session was completed by a student physical therapist personal care assistant under the supervision of the cosigning therapist. Julia Bourgeois PTA * Ivy Garcia - 06/05/2023 11:11 AM EDT Images from the original note were not included. PHYSICAL THERAPY [facility] Treatment Note Name/MRN: Terry Lacy ([id number]) Date of : 1960 Age: 62 y.o. [...] was completed by a student physical therapist personal care assistant under the supervision of the cosigning therapist. Julia Bourgeois, ASSEMBLER ERECTOR * JOSE DANIEL Sultana CNP - 06/05/2023 8:45 AM EDT Images from the original note were not included. Cardiothoracic Surgery Interval Note PATIENT NAME: Sylvester Lacy : 1960 (62 y.o.) TODAY'S DATE: 06/05/2023 Interval History: After discussion with surgeon - amee isaac and consult urology for recs. Patient likely d/c in next day or two * JOSE DANIEL Sultana CNP - 06/05/2023 5:36 AM EDT Images from the original note were not included. Cardiothoracic Surgery/[facility] Progress Note PATIENT NAME: Sylvester Lacy DATE: 06/05/23 HPI: 62 y.o. 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 Pmhx including RCA and PDA stents in 2008, HTN, Hx of NSVT, Hx of PE, former tobacco use and current ETOH use. He was see in OP setting 05/31/23 and noted tohave unstable angina with palpitations and he was direct admitted for urgent CABG. Preoperative testing was completed and he consented to surgical revascularization. Of note patient lives alone at home. 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 Surgery/Procedure: 05/31/23: CABGx5 (CAMPBELL to LAD, Free left radial to OM2, SVG to right pDA, SVG to Diag1, SVG to Diag2)left radial harvest R leg EVH and PAM with Dr. Huang Interval History: 06/05/23, POD# 5: VSS on Ra. Noted urinary retention throughout the weekend - started on flomax andstraight cathed multiple times. Per patient has had issues in past with urgency and able to void ingeneral; does not see a urologist as outpatient. [...] Blood Conservation: None noted in post-operative period German Professor: Michelle Carl PA with [facility] Associated attestation - Alex Moy MD - 06/05/2023 11:20 AM EDT I have personally performed a face to face diagnostic evaluation on this patient today on 06/05/23.Labs, imaging studies, and electronic medical record notes on [employer] have been reviewed by me. This note documented and discussed by the []third officer []Fellow [x] MATTY reflects my history, exam and medical decision making. I have reviewed and agree with the care plan. Changes were made in the orders as necessary. ROS documentation was reviewed and negative unless otherwise stated in the HPI. My history, exam, assessment and plan are as follows: Time spent for coordination of care: a subsequent visit: minutes (Level I) Awake, alert, resp unlabored CAD 05/31 s/p CABG x 5 HTN, HLD Normocytic anemia, expected post op Urinary retention On ASA, statin, b-constance Flomax started yesterday, if cont unable to void-->isaac re-insertion and urology eval, ?home with isaac * Amena Tobin, OT - 06/04/2023 11:02 AM EDT Images from the original note were not included. OCCUPATIONAL THERAPY [facility] Initial Evaluation Name/MRN: Terry Lacy ([id number]) Evaluation Date: 06/04/2023 Date of : 1960 [...] digit of hand NSVT (nonsustained ventricular tachycardia) ([facility]) Past Surgical History: Past Surgical History: Procedure Laterality Date CORONARY STENT PLACEMENT 2008 Admission Diagnosis: Patient Active Problem List Diagnosis Date Noted Coronary artery disease involving [place] heart with angina pectoris, unspecified vessel or lesion type ([facility]) 05/31/2023 Medical Precautions: No active [...] Responsibilities: Independent Receives Help From: None Active Exchange Operator: Yes Prior Level of Function ADL Assistance: [...] Patient ambulated into bathroom with no device. Patientsupervision for transfer on/off commode. Patient requesting to ambulate in dc; item retrieval andobstacle negotiation completed with supervision. Patient with FAIR [...] of Care supervision is transferred to a [facility] Occupational Therapist. Goals and/or treatment plan was established in collaboration with patient/family/other representatives. * Alberto Denise Shani, ASSISTANT PROJECT MANAGER - CORE MAN - 06/04/2023 10:12 AM EDT Images from the original note were not included. Cardiothoracic Surgery/[facility] Progress Note PATIENT NAME: Sylvester Lacy DATE: 06/04/23 HPI: 62 y.o. 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 Pmhx including RCA and PDA stents in 2008, HTN, Hx of NSVT, Hx of PE, former tobacco use and current ETOH use. He was see in OP setting 05/31/23 and noted tohave unstable angina with palpitations and he was direct admitted for urgent CABG. Preoperative testing was completed and he consented to surgical revascularization. Of note patient lives alone at home. 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 Cardiac cath showed 90% D1, 90% D2, 80% mLAD, 90% ostial OM1, 80% mCirc, 90% mRCA Surgery: 05/31/23: CABGx5 (CAMPBELL to LAD, Free left radial to OM2, SVG to right pDA, SVG to Diag1, SVG to Diag2)left radial harvest R leg EVH and PAM with Dr. Huang Interval History: 06/01/23: POD #3 - No acute events overnight - pt has allergy to tape and has some blistering wherehis Lido patches were placed. VSS, Labs stable [...] Blood Conservation: None noted in post-operative period German Professor: MIESHA Yuan with the [facility] Associated attestation - Susan Covington DO - 06/04/2023 1:30 PM EDT I have personally performed a ikri-jo-uobh diagnostic evaluation on this patient on date of service06/04/23. History, labs, imaging studies, and electronic medical record have been reviewed by me. This note documented by the []lodging house keeper [x]MATTY reflects my history, exam, and medical decision making. I have reviewed and agree with the care plan. Changes were made in the orders as necessary. ROSdocumentation was reviewed and negative unless otherwise stated [...] scanning/may need straight cath -PT/OT -tele status * Lynnette Lira, PT - 06/03/2023 12:34 PM EST Images from the original note were not included. PHYSICAL THERAPY [facility] Treatment Note Name/MRN: Terry Lacy ([id number]) Date of : 1960 Age: 62 y.o. Room/Bed: T1-124/T1-124 A Discharge Recommendation: Home with assist PRN Equipment Needed: No Prior Level of Function ADL Assistance: Independent Ambulation Assistance: Independent Transfer Assistance: Independent Assessment Pt able to ambulate increased distance this date and required less assistance. He was Min A for bedmobility and CGA for transfers and ambulation. Will [...] Treatment Minutes: (1 gait) Lynnette Lira PT * Janice Fairchild MD - 06/03/2023 10:40 AM EST Department of Internal Medicine Division of Endocrinology, Diabetes, & Metabolism Endocrinology Note Patient Name: Sylvester Lacy : 1960 AGE: 62 y.o. Room/Bed: T1-124/T1-124 A Admission Date: 05/31/2023 Visit Date: 06/03/2023 Reason for Endocrine Consult: Severe MV-CAD s/p CABG Provider/Team Requesting Consult: Darion Lopes APRN-CORE MAN PCP: Crissy Engle DO Outpt Manager Of Health: No ASSESSMENT: Prediabetes/stress hyperglycemia Severe MV-CAD s/p [...] found for: CHOLHDLRATIO No results found for: [id number] No results found for: TSH, D4WCCNZ, R5DPYNE, THYROIDAB Radiology reportsas per the Radiologist Radiology: POCT glucose meter Result Date: 06/01/2023 Performed by: [facility] [employer] [facility], [address] [place] [address] CLIA ID: [id number] POCT glucose meter Result Date: 06/01/2023 [facility]formed by: [facility], [address] [place] [address] CLIA ID: [id number] POCT glucose meter Result Date: 06/01/2023 Performed by: [facility] [employer] [facility], [address] [place] [address] CLIA ID: [id number] POCT glucose meter Result Date: 06/01/2023 Performed by: [facility] [employer] [facility], [address] [place] [address] CLIA ID: [id number] POCT glucose meter Result Date: 06/01/2023 [facility]: [facility], [address] [place] [address] CLIA ID: [id number] POCT glucose meter Result Date: 06/01/2023 Performed by: [facility], [address] [place] [address] CLIA ID: [id number] Transesophageal echocardiogram (PAM) with contrast and 3D [...] meter Result Date: 06/01/2023 Performed by: [facility], [address] [place] [address] CLIA ID: [id number] POCT glucose meter Result Date: 06/01/2023 Performed by: [facility], [address] [place] [address] CLIA ID: [id number] XR chest 1 view Result Date: 06/01/2023 Patient Name: SYLVESTER LACY : 1960 Date/Time: 06/01/2023 14:35 Procedure: XR CHEST 1 [...] and pleura: No consolidation. No sizable pleural effusionor pneumothorax. Cardiomediastinal silhouette:Prominent cardiac silhouette though may be exaggerated by technique. Postoperative changes of median sternotomy for CABG. Other: Degenerative changes of the spine and acromioclavicular joints. Report Dictated on Electronically Signed By: Marcelino Anglin MD Electronically Signed Date/Time: 06/01/2023 2:40 PM EST ECG 12 lead Sinus rhythm Borderline left axis deviation POCT glucose meter Result Date: 06/01/2023 Performed by: [facility], [address] [place] [address] CLIA ID: [id number] CT chest wo IV contrast Result Date: 06/01/2023 Patient Name: SYLVESTER LACY : 1960 Date/Time: 05/31/2023 16:53 Procedure: CT CHEST WO [...] note please contact the signing physician directly. * Alberto Mcleod APRN - CORE MAN - 06/03/2023 10:00 AM EST Images from the original note were not included. Cardiothoracic Surgery/[facility] Progress Note PATIENT NAME: Sylvester Lacy DATE: 06/03/23 HPI: 62 y.o. 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 Pmhx including RCA and PDA stents in 2008, HTN, Hx of NSVT, Hx of PE, former tobacco use and current ETOH use. He was see in OP setting 05/31/23 and noted tohave unstable angina with palpitations and he was direct admitted for urgent CABG. Preoperative testing was completed and he consented to surgical revascularization. Of note patient lives alone at home. 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 Cardiac cath showed 90% D1, 90% D2, 80% mLAD, 90% ostial OM1, 80% mCirc, 90% mRCA Surgery: 05/31/23: CABGx5 (CAMPBELL to LAD, Free left radial to OM2, SVG to right pDA, SVG to Diag1, SVG to Diag2)left radial harvest R leg EVH and PAM [...] Blood Conservation: None noted in post-operative period German Professor: MIESHA Yuan with the [facility] Associated attestation - Susan Covington DO - 06/04/2023 1:30 PM EDT I have personally performed a bhls-ds-ncsz diagnostic evaluation on this patient on date of service06/03/23. History, labs, imaging studies, and electronic medical record have been reviewed by me. This note documented by the []lodging house keeper [x]MATTY reflects my history, exam, and medical [...] -cont norvasc for radial artery harvest -PT/OT * Patria Doshi - 06/02/2023 2:28 PM EST Images from the original note were not included. 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 Current discharge recommendation is home with assistance PRN. Diagnosis: CAD involving [place] heart with angina pectoris, unspecified vessel or lesion type; s/p CABGx5 05/31 Prognosis: good Performance Deficits /Impairments: Increased Pain, Decreased Functional Mobility, and Decreased Endurance Decision Making: Low Complexity Subjective Pt was in bed at start of session and was agreeable to PT elaina. RN OK for PT assessment/treatment. Pain: 0-10 pain scale: 5/10 Location: chest (around tubes and incisions) Past Medical History: Past Medical History: Diagnosis Date Atherosclerosis of coronary artery [place] Hemorrhoids History of alcohol abuse History of inferior wall myocardial infarction History of pulmonary embolism Hyperlipidemia Hypertension Mucous cyst of digit of hand NSVT (nonsustained ventricular tachycardia) ([facility]) Past Surgical History: Past Surgical History: Procedure Laterality Date CORONARY STENT PLACEMENT 2008 Admission Diagnosis: Patient Active Problem List Diagnosis Date Noted Coronary artery disease involving [place] heart with angina pectoris, unspecified vessel or lesion type ([facility]) 05/31/2023 Medical Precautions: No active [...] Responsibilities: Independent Receives Help From: None Active Exchange Operator: Yes Prior Level of Function ADL Assistance: Independent Ambulation Assistance: Independent Transfer Assistance: Independent Objective Lower Extremity Assessment AROM: WFL PROM: WFL *UE ROM limited second to sternal precautions* Strength: WNL Bed Mobility: Supine to sit: Min Assist Sit to supine: Min Assist Transfers Sit to stand: Min Assist Stand to sit: Min Assist Ambulation Ambulation 1 Assistive device(s) used: Sid Assist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 ESTAssociated Order(s): IP CONSULT TO ENDOCRINOLOGY Department of Internal Medicine Division of Endocrinology, Diabetes, & Metabolism Endocrinology Note Patient Name: Sylvester Lacy : 1960 AGE: 62 y.o. 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 [facility] [...] found for: CHOLHDLRATIO No results found for: [id number] No results found for: TSH, Q7BKHVT, U2VROYE, THYROIDAB Radiology reportsas per the Radiologist Radiology: POCT glucose meter Result Date: 06/01/2023 Performed by: [facility], [address] [place] [address] CLIA ID: [id number] CT chest wo IV contrast Result Date: 06/01/2023 Patient Name: SYLVESTER LACY : 1960 [facility]#: [id number] Date/Time: 05/31/2023 16:53 Procedure: CT CHEST WO [...] for DM. M with DM. Goes to [place]. Diet is high in fat; does not [...] be of moderate complexity. documented in this [facility]03-11-2024 Consult note* Marilin Corrales APRN - CORE MAN - 06/05/2023 1:17 PM EDTAssociated Order(s): IP WOUND CARE NURSE CONSULT TO EVAL Images from the original note were not included. [facility] Wound Care CONSULT Note Sylvester Lacy AGE: 62 y.o. GENDER: male : 1960 Subjective: HISTORY of PRESENT ILLNESS HPI Sylvester Lacy is a 62 y.o. male who presents for a wound consult. HPI: 62 y.o. 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 Pmhx including RCA and PDA stents in 2008, HTN, Hxof NSVT, Hx of PE, former tobacco use and current ETOH use. He was see in OP setting 05/31/23 and noted to have unstable angina with palpitations and he was direct admitted for urgent CABG. Preoperative testing was completed and he consented to surgical revascularization. Of note patient lives alone at home. Former [place] Vet and deals primary for healthcare through [...] Take 200 mg by mouth daily. [DISCONTINUED] Mafnegbzevm-Qeubwxqfy-Jfvayuif 250-200-116.67 MG capsule Take 1 tablet by [...] to follow Recommend to follow up at [facility] wound care center after hospital discharge. Any [...] edited the note to reflect my clinical findingsand my assessment and plan. Please note, the time of this note does not reflect the time I saw thispatient today, but the time of this documentaton. [...] Decision making for today's visit and to reflectmy own independent evaluation of this patient. [facility] Work Phone: [phone]) 781-413703-11-2024 Consult note* Kristofer Maynard MD - 06/05/2023 11:01 AM EDT Urology Inpatient Consultation Patient Name: Sylvester Lacy Date of : 1960 Admission Date: 05/31/2023 2:33 PM Today's Date: 06/05/2023 Reason for consultation: urinary retention Chief complaint: same HISTORY OF PRESENT ILLNESS: The patient is a 62 y.o. male unknown to our service presented on 05/30 with chest pain and underwentCABG on 05/31. A catheter was placed intra-op and maintain until 06/02 when it was removed. He requiredstaight cath over the weekend for 1.3L and [...] digit of hand NSVT (nonsustained ventricular tachycardia) ([facility]) PAST SURGICAL HISTORY: Past Surgical [...] until Monday can attempt void trial (call instrumentation supervisor resident morning of discharge) Thank you for allowing me to participate in the care of your patient KRISTOFER MAYNARD MD 06/05/23 11:01 AM - Page instrumentation supervisor resident with questions. Associated attestation - Bryant Breaux MD - 06/06/2023 11:38 AM EDT I saw and evaluated the patient, participating in the soto portions of the service. I reviewed the resident s note. I agree with the resident s findings and plan. Bryant Breaux MD [facility] Work Phone: [phone] 263-281803-10-2024 NoteOCCUPATIONAL THERAPY [facility] Initial Evaluation Name/MRN: Terry Lacy ([id number]) Evaluation Date: 06/04/2023 Date of : 1960 [...] Diagnosis Date Noted Coronary artery disease involving [place] heart with angina pectoris, unspecified vessel or [...] Responsibilities: Independent Receives Help From: None Active Exchange Operator: Yes Prior Level of Function ADL Assistance: [...] Daily Activity Raw Score: 24 ADL Inpatient [facility] G-Code Modifier: CH Plan No skilled acute [...] of Care supervision is transferred to a [facility] Services Occupational Therapist. 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 Current discharge recommendation is home with assistance PRN. Diagnosis: CAD involving [place] heart with angina pectoris, unspecified vessel or [...] Diagnosis Date Noted Coronary artery disease involving [place] heart with angina pectoris, unspecified vessel or lesion type ([facility]) 05/31/2023 Medical Precautions: No active [...] Responsibilities: Independent Receives Help From: None Active Exchange Operator: Yes Prior Level of Function ADL Assistance: Independent Ambulation Assistance: Independent Transfer Assistance: Independent Objective Lower Extremity Assessment AROM: WFL PROM: WFL *UE ROM limited second to sternal precautions* Strength: WNL Bed Mobility: Supine to sit: Min Assist Sit to supine: Min Assist Transfers Sit to stand: Min Assist Stand to sit: Min Assist Ambulation Ambulation 1 Assistive device(s) used: Sid Assist level: Contact Guard Distance (ft): 355 [...] Little Walking in a (more content not included)...[facility]03-08-2024 NoteNutrition Assessment Type and Reason for Visit: Initial, [...] surgery) Nutrition Assessment: Pt was referred from [place] due to MVCAD. Pmhx including RCA and [...] On: Kcal/kg Weight Used for Energy Requirements: [place] (25-30 kcal/kg) Weight for Energy Calculation (kg): 72.6 kg Total Energy Requirements (kcals/day): 5398-6721 Weight Used for Protein Requirements: [place] (1.2-1.5 g/kg) Weight in Kg Used for [...] (239 lb 1.6 oz) (standing scale 05/31) [place] Body Weight (lbs) (Calculated): 160 lbs [place] Body Weight (Kg) (Calculated): 73 kg % [place] Body Weight (Calculated): 151.4 % BMI (kg/m2) [...] to determine Domitila Herrera RD, LD Contact: *[phone] or via [employer] [phone] Consult note* Domitila Herrera RD - 06/02/2023 1:43 PM ESTAssociated Order(s): IP CONSULT TO DIETITIAN Nutrition Assessment [...] surgery) Nutrition Assessment: Pt was referred from [place] due to MVCAD. Pmhx including RCA and PDA stents in 2008, HTN, Hx of NSVT, Hx of PE, former tobacco use and current ETOH use. He was see in OP setting 05/31/23 and noted tohave unstable angina with palpitations and he was direct admitted for urgent CABG. Preoperative testing was completed and he consented to surgical revascularization. He underwent CABG x5 on 05/31. Extu bated with diet ordered. Pt reports he tolerated [...] On: Kcal/kg Weight Used for Energy Requirements: [place] (25-30 kcal/kg) Weight for Energy Calculation (kg): 72.6 kg Total Energy Requirements (kcals/day): 0847-2543 Weight Used for Protein Requirements: [place] (1.2-1.5 g/kg) Weight in Kg Used for [...] (239 lb 1.6 oz) (standing scale 05/31) [place] Body Weight (lbs) (Calculated): 160 lbs [place] Body Weight (Kg) (Calculated): 73 kg % [place] Body Weight (Calculated): 151.4 % BMI (kg/m2) [...] to determine Domitila Herrera RD, LD Contact: *[phone] or via [employer] [id number] Note* Care Coordination - Daphne Chou RN - 06/02/2023 1:42 PM EST Care Managment Initial Assessment Date: 06/02/2023 Patient Name: Sylvester Lacy : 1960 Patient Information Source of Information: Patient Cognition/Language: WFL - Within Functional Limits Permission given to speak with patient national account representative/caregiver as indicated: Yes Confirmation of Payer with patient/family: Yes P[place] Name: [place]: Yes () Confirmation of Primary Care Physician: [...] Daily Living Prescription Coverage: No Pharmacy Used: [place] or [facility] Medication Management: Independent Transportation/Shopping: Independent Transportation Mode: [...] has PCP but no prescription coverage-uses the [facility] or [facility], will have a ride home but concerned with home going alone and agreeable to SNF ([facility]) if recommended by therapy. Daphne Chou RN [facility] [id number] Note* Care Coordination - Daphne Chou RN - 06/02/2023 1:42 PM EST Care Managment Initial Assessment Date: 06/02/2023 Patient Name: Sylvester Lacy : 1960 Patient Information Source of Information: Patient Cognition/Language: WFL - Within Functional Limits Permission given to speak with patient national account representative/caregiver as indicated: Yes Confirmation of Payer with patient/family: Yes P[place] Name: [place]: Yes ([place]) Confirmation of Primary Care Physician: Confirmed PCP [...] Daily Living Prescription Coverage: No Pharmacy Used: [facility] or [facility] [place] Medication Management: Independent Transportation/Shopping: Independent Transportation Mode: [...] Referral for: Additional Information: Patient admitted to [facility] ICU s/p CABG x 5 POD # 1. Spoke with patient at bedside, introduced self and role. Patient from home alone, is independent, has PCP but no prescription coverage-uses the [facility] or [facility], will have a ride home but concerned with home going alone and agreeable to SNF ([facility]) if recommended by therapy. Daphne Chou RN [facility] [id number] NoteReceived referral and reviewed chart. Unable to discuss Phase II Cardiac Rehab Referral with Sylvester Lacy at this time. Will follow to discuss cardiac rehab when appropriate. Patient will be contacted at home if discharged prior to discussion. [facility]03-08-2024 Consult note* Jacquelin Roque - 06/02/2023 10:39 AM EST Associated Order(s): IP CONSULT TO CARDIAC REHAB Received referral and reviewed chart. Unable to discuss Phase II Cardiac Rehab Referral with Sylvester Lacy at this time. Will follow to discuss cardiac rehab when appropriate. Patient will be contacted at home if discharged prior to discussion. [facility] [id number] NotePatient: Terry Lacy Procedure Summary Date: 06/01/23 Room / Location: [address] Operating Room Anesthesia Start: 728 Anesthesia Stop: 1332 Procedures: CORONARY ARTERY BYPASS GRAFT, TRANSESOPHAGEAL ECHOCARDIOGRAM (Chest) Echocardiography transesophageal real-time Diagnosis: Atherosclerotic heart disease of [place] coronary artery without angina pectoris (Atherosclerotic heart disease of [place] coronary artery without angina pectoris [I25.10]) Surgeons: Gisella Huang MD Responsible Provider: George Reid MD Anesthesia Type: general ASA Status: 4 Anesthesia Type: general Vitals Value Taken Time BP 145/80 06/01/23 1336 Temp 97.6 06/01/23 1336 Pulse 79 06/01/23 1336 Resp 10 06/01/23 1336 SpO2 99 % 06/01/23 1333 Vitals shown [...] discharged once all PACU criteria has been met.[facility]03-07-2024 NotePatient: Terry Lacy Procedure Summary Date: 06/01/23 Room / Location: [address] Operating Room Anesthesia Start: 728 Anesthesia Stop: 1332 Procedures: CORONARY ARTERY BYPASS GRAFT, TRANSESOPHAGEAL ECHOCARDIOGRAM (Chest) Echocardiography transesophageal real-time Diagnosis: Atherosclerotic heart disease of [place] coronary artery without angina pectoris (Atherosclerotic heart disease of [place] coronary artery without angina pectoris [I25.10]) Surgeons: [...] Allowed opportunity for questions and acknowledgement of understanding.[facility]03-07-2024 Evaluation note* Diagnosis Onset Date Resolution Status Admit Date Hyperlipidemia chronic August 23, 2024 8:09am Hypertension chronic August 23 8:09am S/P CABG x 5 June 01, 2023 chronic July 8:09am [facility] [employer] Work Phone: [phone]) 201-206703-07-2024 Consult note* Lamar Mcallister DO - 06/01/2023 1:46 PM ESTAssociated Order(s): IP CONSULT TO ENDOCRINOLOGY Department of Internal Medicine Division of Endocrinology, Diabetes, & Metabolism Endocrinology Note Patient Name: Sylvester Lacy : 1960 AGE: 62 y.o. 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 [facility] [...] found for: CHOLHDLRATIO No results found for: [id number] No results found for: TSH, X0TNNXY, V7LBYKY, THYROIDAB Radiology reportsas per the Radiologist Radiology: POCT glucose meter Result Date: 06/01/2023 Performed by: [employer] [facility], [address] [place] [address] CLIA ID: [id number] CT chest wo IV contrast Result Date: 06/01/2023 Patient Name: SYLVESTER LACY : 1960 [id number] Date/Time: 05/31/2023 16:53 Procedure: CT CHEST WO [...] for DM. M with DM. Goes [place]. Diet is high in fat; does not [...] be considered to be of moderate complexity. [facility] [id number] NoteArterial Line: Date/Time: 06/01/2023 7:40 AM An [...] procedure well with no complications. Staffing Performed: CYLINDER BLOCK MECHANIC Resident/CYLINDER BLOCK MECHANIC: Gertrudis Fritz APRN - [facility]03-07-2024 NoteAirway Date/Time: 06/01/2023 7:43 AM Urgency: scheduled Airway not difficult General Information and Staff Patient location during procedure: Procedural Resident/CYLINDER BLOCK MECHANIC: Barbara Mendoza APRN - CYLINDER BLOCK MECHANIC Performed: CYLINDER BLOCK MECHANIC Indications and Patient Condition Indications for airway [...] (cm): 23 Number of attempts at approach: [address] [place], [place] 1135903-07-2024 NoteCentral Venous Line: Date/Time: 06/01/2023 7:45 AM [...] complications. Staffing Performed: anesthesiologist Anesthesiologist: George Reid, [facility] [id number] NoteDATE OF PROCEDURE: 06/01/2023 PREOPERATIVE DIAGNOSIS: Coronary [...] right lower extremity SURGEON: Gisella Huang MD TEST FIXTURE ASSEMBLER: SLY Cruz, CHILO, ASSISTANT PROJECT MANAGER, LIME BOILER COMPLICATIONS: None intra-op CONDITION: Stable DESCRIPTION OF PROCEDURE: The patient was prepped and draped in the appropriate manner, having undergone general endotracheal anesthetic in addition to [place] catheter placement, arterial line, and isaac catheter [...] artery bypass: Bypasses were performed to the [place] targets using the conduits listed above with [...] No significant abnormalities Gisella Huang MD Cardiothoracic Surgery[facility] Note* Home Care - Ynes Bush RN - 06/01/2023 8:48 AM EST Psychologist Engineering following case for Discharge Needs. [facility] [id number] Note* Home Care - Ynes Bush RN - 06/01/2023 8:48 AM EST Psychologist Engineering following case for Discharge Needs. [facility] [id number] NotePatient: Terry Lacy Procedure Information Date/Time: 06/01/23729 Procedures: CORONARY ARTERY BYPASS GRAFT, TRANSESOPHAGEAL ECHOCARDIOGRAM (Chest) Echocardiography transesophageal real-time Location: [facility] OR Operating Room Surgeons: Gisella Huang MD Relevant Problems Cardio (+) Coronary artery disease involving [place] heart with angina pectoris, unspecified vessel or [...] patient. Anesthesia Soto Considerations Note Left Radial [place] Central access Post-op intubation ARIANNA Screening Labs: [...] Pt had a stress test at the December 2022 which demonstrated no reversible ischemia, [...] triple-vessel disease with preserved left ventricular systolic function.[facility] [id number] Note* Op Note - Gisella Huang MD [...] right lower extremity SURGEON: Gisella Huang MD TEST FIXTURE ASSEMBLER: SLY Cruz, CORE MAN, ASSISTANT PROJECT MANAGER, LIME BOILER COMPLICATIONS: None intra-op CONDITION: Stable DESCRIPTION OF PROCEDURE: The patient was prepped and draped in the appropriate manner, having undergone general endotrachealanesthetic in addition to [place] catheter placement, arterial line, and isaac catheter [...] artery bypass: Bypasses were performed to the [place] targets using the conduits listed above with [...] significant abnormalities Gisella Huang MD Cardiothoracic Surgery [employer] Phone: 1(185) 437-402103-07-2024 Note* Op Note - Gisella Huang MD [...] right lower extremity SURGEON: Gisella Huang MD TEST FIXTURE ASSEMBLER: SLY Cruz, CORE MAN, ASSISTANT PROJECT MANAGER, LIME BOILER COMPLICATIONS: None intra-op CONDITION: Stable DESCRIPTION OF PROCEDURE: The patient was prepped and draped in the appropriate manner, having undergone general endotrachealanesthetic in addition to [place] catheter placement, arterial line, and isaac catheter [...] artery bypass: Bypasses were performed to the [place] targets using the conduits listed above with [...] significant abnormalities Gisella Huang MD Cardiothoracic Surgery [facility] [employer] Phone: 1(669) 180-275203-06-2024 Note Attestation signed by Gisella Huang MD [...] -CABG planned for tomorrow with Dr. Huang [facility]ARDI[facility]ASCULAR [facility]ORACIC SURGERY [address] [facility] [address] [place] [address] Dept: [phone] Dept Loc: [phone] Visit type: New Reason for Visit: Coronary [...] and PDA in 2 (more content not included)...[facility]03-06-2024 History and physical note* Darion Lopes, ASSISTANT PROJECT MANAGER - CORE MAN - 05/31/2023 3:04 PM EST Images from [...] -CABG planned for tomorrow with Dr. Huang [facility]ORAC[facility] SURGERY [address] [facility] [address] Dept: [phone] Dept Loc: [phone] Visit type: New Reason for Visit: Coronary [...] 2008, HTN. Pt had a stress test [facility] December 2022 which demonstrated no reversible [...] This note may have been dictated using [employer]ant[employer] Practice Edition 2.6 and/or [employer] Voice Recognition Feature. The document was proofread, however unrecognized voice recognition actuarial internship errors may be present. Associated attestation - [...] was performed. Gisella Huang MD Cardiothoracic Surgery [facility] [id number] History and physical note* Darion Lopes, ASSISTANT PROJECT MANAGER - CORE MAN - 05/31/2023 3:04 PM EST Images from [...] Former Tobacco Use ETOH use Hx of PE - 1992? -ASA, BB -Heparin gtt, nipride gtt -preoperative orders -CABG planned for tomorrow with Dr. Huang [facility]AC[facility] SURGERY [address] [facility] [address] Dept: [phone] Dept Loc: [phone] Visit type: New Reason for Visit: Coronary [...] 2008, HTN. Pt had a stress test [facility] December 2022 which demonstrated no reversible [...] (Bactroban) 2 % ointment, , Topical, Once, Darion Lopes APRN - CHILO mupirocin (Bactroban) 2 % ointment, , Topical, Once, Darion Lopes APRN - CHILO Review of Systems Review of Systems Constitutional: [...] This note may have been dictated using [employer] Practice Edition 2.6 and/or [employer] Voice Recognition Feature. The document was proofread, however unrecognized voice recognition actuarial internship errors may be present. Associated attestation - [...] Huang MD Cardiothoracic Surgery documented in this [facility]03-06-2024 History of Present illness Narrative* Gisella Huang MD - 05/31/2023 8:30 AM EST Images from the original note were not included. [facility]AC[facility] SURG[facility] [address] [facility] [address] Dept: [phone] Dept Loc: [phone] Visit type: New Reason for Visit: Coronary [...] is a 62 y.o. male referred by MIESAH Yuan for severe triple-vessel diseasewith preserved left ventricular systolic function. Per note, pt with history of CAD with stenting of RCA and PDA in 2008, HTN. Pt had a stress test [facility] December 2022 which demonstrated no reversible [...] This note may have been dictated using [employer] Practice Edition 2.6 and/or [employer] Voice Recognition Feature. The document was proofread, however unrecognized voice recognition actuarial internship errors may be present. documented in this [facility]02-15-2024 History and physical note Author Meek Gaines [place] May 11, 2023 4:40pm Note Date/Time May 09, 2023 9:25am [facility] Medical Records Department [address] [place] [address] History & Physical Exam 05/09/23 0924 MR#: [id number] Acct: [id number] Name: SYLVESTER LACY Rep #:[id number] : 1960 62 From: Meek Gaines MD PCP: [place] Hospital Status:PRE [facility] Location: [facility] History and Physical Date of Admission: 05/19/23 Sylvester Lacy is a 62 year old male who presents for a cardiac catheterization. He has a history of coronary artery disease with RCA and PDA in 2008. He also has a history of hypertension. In 2008 he had angioplasty and stenting done of the RCA system at a hospital in [place]. At that time he was noted to have severe disease in his LAD and moderate disease in his circumflex. Patient had a stress test at the in December 2022 which demonstrated no reversible [...] noted below. He was to see a crtts and [place], his Imdur was increased. CP helped somewhat. He was then started on Ranexa. This has helped with his CP. He has tried to reproduce the pain with Ranexa and has not been able to reproduce pain. He is currently working at [employer] in [facility]. Prior to starting the ranexa he would [...] EMR Ejection fraction %: 60 to 64 [facility] Medical History Atherosclerosis of coronary artery of [place] heart without angina pectoris COVID-19 ELIZABETH (dyspnea [...] smoker how long ago did patient quit [id number] and again in 2014 alcohol intake: current [...] Patient had a stress test at the in December 2022 which demonstrated no reversible [...] Plan (1) Atherosclerosis of coronary artery of [place] heart without angina pectoris: Status: Chronic Plan: [...] CC: CHACHO Dempsey; Dr. Meek Gaines MD; ~ Signed [place] Work Phone: 1(782) 726-559203-23-[address] Oneil [place] June 16, 2022 5:13pm Note Date/Time June 16, 2022 2:2 9pm [facility] Medical Records Department [address] [place] [address] Emergency Department Summary 06/16/22 MR#: [id number] Acct: [id number] Name: SYLVESTER LACY Rep #:[id number] : 1960 61 From: Isaías Oneil DO PCP: [facility] Status:REG ER Location: ED HPI History of [...] in 2019. History of CAD, cardiac stents. [facility] Medical History Hay fever Heart attack Hemorrhoids [...] (Auto) 44.6 L Lymph % (Auto) 38.4 [place] % (Auto) 12.7 H Eos % (Auto) [...] Dizziness) Qty: 20 0RF [facility] Care Provider[facility] [facility]errals[facility] [Primary Care Provider] - What to do if you have Problems For any increased pain, shortness of breath, bleeding, nausea or vomiting, chestpain, or any unexpected problems, contact your Primary Care Provider. Call [facility] ([phone]) or report to the closest Emergency Room. Call 911 if necessary. 06/16/22 1713 <Electronically signed by Isaías Oneil DO> Cosigner Signature (if applicable): CC: ~ Signed [place] Work Phone: Evaluation noteNo assessment information available [place] Work Phone: Evaluation note* Diagnosis Onset Date Resolution Status Chest pain acute ELIZABETH (dyspnea on exertion) [place] NSVT (nonsustained ventricular tachycardia) acute Atherosclerosis of coronary artery of [place] heart without angina pectoris chronic Hyperlipidemia chronic Hypertension [facility] Work Phone: Evaluation note* Diagnosis CAD, multiple vessel- Primary Unstable angina (CMS/HCC) (HCC) Intermediate coronary syndrome Atherosclerotic heart disease of [place] coronary artery without angina pectoris documented in this encounter [facility] [employer] note* Diagnosis Retention of urine- Primary Unspecified retention of urine documented in this encounter [facility] [employer] note* Diagnosis Coronary artery disease involving [place] heart with angina pectoris, unspecified vessel or lesion type (HCC)- Primary Preoperative clearance Unspecified pre-operative examination Coronary artery disease involving [place] heart with angina pectoris, unspecified vessel or lesion type (HCC) S/P CABG (coronary artery bypass graft) Postsurgical aortocoronary bypass status documented in this encounter [facility] [employer] note* Diagnosis S/P CABG (coronary artery bypass graft)- Primary Postsurgical aortocoronary bypass status CAD, multiple vessel documented in this encounter [facility] [employer] note* Diagnosis S/P CABG (coronary artery bypass graft)- Primary Postsurgical aortocoronary bypass status documented in this encounter [facility] [employer] note* Diagnosis Onset Date Resolution Status Chest pain acute ELIZABETH (dyspnea on exertion) ac [place] NSVT (nonsustained ventricular tachycardia) acute Atherosclerosis of coronary artery of [place] heart without angina pectoris chronic Hyperlipidemia chronic Hypertension chronic S/P CABG x 5 acute Hyperlipidemia chronic Hypertension [facility] Work Phone: Evaluation note* Diagnosis S/P CABG (coronary artery bypass graft)- Primary Postsurgical aortocoronary bypass status documented in this encounter [facility] [employer] note* Diagnosis Onset Date Resolution Status S/P CABG x 5 acute Hyperlipidemia chronic Hypertension [facility] Work Phone: Evaluation note* Diagnosis Onset Date Resolution Status S/P CABG x 5 acute Hyperlipidemia chronic Hypertension chronic S/P CABG x 5 acute Hyperlipidemia chronic Hypertension [facility] Work Phone: Hospital Discharge instructionsAdditional Instructions Clinical dehydration. EKG labs are stable. Urine culture sent. You will be contacted if you will require antibiotics. Continue oral fluids for hydration.[place] Work Phone: Reason for referral (narrative)* Consultation (Routine) - Pending Review Specialty Diagnoses / Procedures Referred By Contac t Referred To Contact Urology Diagnoses Retention of urine Procedures PA OFFICE/OUTPATIENT NEW HIGH MDM 60 MINUTES Jean Sanchez APRN - CNP [address] [place] [address] [place] [address] [address] [facility] [place] [address] Referral ID Status Reason Start Date Expiration Date Visits Requested Visits Authorized [id number] Pending Review Specialty Services Required 06/06/2023 06/05/2024 1 1 [facility] ([facility]arrative)No reason for referral information availableSaranac [facility] Medical Services Work Phone: Summary Purpose Family History Relationship Condition Age at Onset Recorded Date/T alexander mother Cerebrovascular accident (CVA) Unknown Diabetes mellitus Unknown Advance Directives Advance Directive Response Recorded Date/ Time Living Will No June 25, 2021 7:38am Power of Acoustic Warfare Analyst No June 25 7:38am Advance Directive Response Recorded Date/ Time Living Will No April 16 10:34am Power of Acoustic Warfare Analyst No April 16, 2022 10:34am Advance Directive Response Recorded Date/ Time Living Will No June 16, 2022 2:17pm Power of Acoustic Warfare Analyst No June 16 2:17pm Advance Directive Response Recorded Date/ Time Living Will No June 16, 2022 1:17pm Power of Acoustic Warfare Analyst No June 16 1:17pm Advance Directive Response Recorded Date/ Time Advance Directives No April 7:12am Living Will No May 19, 2 7:12am Power of Acoustic Warfare Analyst No May 19, 2023 7:12am Latest Code [...] Yes July 03, 2023 8:21am Power of Acoustic Warfare Analyst No July 02 8:09am Advance Directive Response Recorded Date/ Time Advance Directives No April 8:12am Advance Directive Response Recorded Date/ Time Do you have a Healthcare Power of Acoustic Warfare Analyst? No November 10, 2024 5:00pm Advance Directives No April 8:12am Advance Directive Response Recorded Date/ Time Living Will Yes September 09, 2023 6:12am Do you have a Healthcare Power of Acoustic Warfare Analyst? No September 09, 2023 6:12am Do you have a Healthcare Power of Acoustic Warfare Analyst? No November 10, 2024 5:00pm Advance Directives No April 8:12am Chief Complaint and Reason for Visit Chief Complaint Admit Date 6 M FU August 23, 2024 8:09a m DIZZINESS November 10, 2024 4: 25pm Reason for Visit Admit Date Hyperlipidemia August 23, 2024 8:09a m Hypertension August 23, 2024 8:09a m S/P CABG x 5 August 23, 2024 8:09a m Chief Complaint DIZZINESS Chief Complaint GENERAL ILLNESS Chief Complaint GENERAL ILLNESS PALPITATIONS Chief Complaint POSS STRESS / CAD / CP ([place]) Atherosclerotic heart disease of [place] coronary a Reason for Visit Chest pain ELIZABETH (dyspnea on exertion) NSVT (nonsustained ventricular tachycardia) Atherosclerosis of coronary artery of [place] heart without angina pectoris Hyperlipidemia Hypertension Chief Complaint POSS STRESS / CAD / CP ([place]) Atherosclerotic heart disease of [place] coronary a CP CP Reason for Visit Chest pain ELIZABETH (dyspnea on exertion) NSVT (nonsustained ventricular tachycardia) Atherosclerosis of coronary artery of [place] heart without angina pectoris Hyperlipidemia Hypertension Chief Complaint POSS STRESS / CAD / CP ([place]) Atherosclerotic heart disease of [place] coronary a CP CP 3 m fu w [employer] per MMM CABG S/P CABG Reason for Visit Chest pain ELIZABETH (dyspnea on exertion) NSVT (nonsustained ventricular tachycardia) Atherosclerosis of coronary artery of [place] heart without angina pectoris Hyperlipidemia Hypertension S/P CABG x 5 Hyperlipidemia Hypertension Chief Complaint Atherosclerotic hear t disease of [place] coronary a CP CP 3 m fu w [employer] per MMM CABG S/P CABG WOUND CHECK (SEE NOTES) Reason for Visit S/P CABG x 5 Hyperlipidemia Hypertension Chief Complaint Atherosclerotic hear t disease of [place] coronary a CP CP 3 m fu w [employer] per MMM CABG WOUND CHECK (SEE NOTES) S/P SUMMA 06/04 (SCANNED) S/P CABG Reason for Visit S/P CABG x 5 Hyperlipidemia Hypertension S/P CABG x 5 Hyperlipidemia Hypertension Chief Complaint Atherosclerotic hear t disease of [place] coronary a CP CP 3 m fu w [employer] per MMM CABG WOUND CHECK (SEE NOTES) S/P SUMMA 06/04 (SCANNED) S/P CABG S/P CABG Reason for Visit S/P CABG x 5 Hyperlipidemia Hypertension S/P CABG x 5 Hyperlipidemia Hypertension Chief Complaint Admit Date 6 M FU August 23, 2024 8:09a m Chief Complaint Admit Date 6 M FU August 23, 2024 8:09a m DIZZINESS November 10, 2024 4: 25pm 1 Y FU December 03, 2024 12:49pm Reason for Visit Admit Date Hyperlipidemia August 23, 2024 8:09a m Hypertension August 23, 2024 8:09a m S/P CABG x 5 August 23, 2024 8:09a m Atherosclerosis of coronary artery of [place] heart without angina pectoris December 03, 2024 12:49pm Hyperlipidemia December 03, 2024 12:49pm Hypertension December 03, 2024 12:49pm S/P CABG x 5 December 03, 2024 12:49pm Chief Complaint Admit Date DIZZINESS November 10, 2024 4: 25pm 1 Y FU December 03, 2024 12:49pm INT LAB ORDERS December 03, 2024 2:06pm Reason for Visit Admit Date Atherosclerosis of coronary artery of [place] heart without angina pectoris December 03, 2024 12:49pm Hyperlipidemia December 03, 2024 12:49pm Hypertension December 03, 2024 12:49pm S/P CABG x 5 December 03, 2024 12:49pm Additional Source Comments (unrecognized sect ion and content) No Status Records FoundNo Status Records FoundNo Status Records FoundNo Status Records Found INFORMATION SOURCE (unrecogn ized section and content) DATE CREATED AUTHOR 07/18/2018 [facility] DATE CREATED AUTHOR AUTHOR'S ORGANIZ ATION 06/07/2023 [facility] ([place]) DATE CREATED AUTHOR AUTHOR'S ORGANIZ ATION [facility] DATE CREATED AUTHOR AUTHOR'S ORGANIZ ATION 07/21/2023 [facility] DATE CREATED AUTHOR AUTHOR'S ORGANIZ ATION 12/15/2024 [facility] Goals (unrecognized section and content) Goals [...] Team Status: Active Member Role Status Dates Family Provider Active Primary Care Provider Active Team Status: Inactive Member Role Status Dates Primary Care Provider Active Dr. Jesse Palacio , DO Emergency Provider Active Team Status: Inactive Member Role Status Dates Primary Care Provider Active Dr. Jesse Palacio , DO Attending Provider, Emergency P north Active Team Status: Inactive Member Role Status Dates Primary Care Provider Active Dr. Isaías Oneil , Emergency Provider Active Team Status: Inactive Member Role Status Dates Primary Care Provider, Referring Provider Active MIESHA Sánchez Attending Provider Active Team Status: Active Member Role Status Dates Primary Care Provider Active Dr. Meek Gaines MD Attending Provider Active Team Status: Inactive Member Role Status Dates Primary Care Provider Active MIESHA Sánchez Attending Provider, Referr ing Provider Active Team Status: Active Member Role Status Dates Primary Care Provider Active Dr. Meek Gaines MD Attending Provider, Referring Pro vider Active Team Status: Active Member Role Status Dates Primary Care Provider Active Dr. Meek Gaines MD Attending Provider, Other Provide r Active Team Status: Inactive Member Role Status Dates Primary Care Provider Active Dr. Meek Gaines MD Attending Provider, Referring Pro vider Active Roofing Subcontractor Relationship Specialty Start Date End Date Crissy Engle, DO [address] [place] [address] PCP - General 05/31/23 Roofing Subcontractor Relationship Specialty Start Date End Date Crissy Engle, [address] [place] [address] PCP - General 05/31/23 Roofing Subcontractor Relationship Specialty Start Date End Date Crissy Engle DO [address] [place] [address] PCP - General 05/31/23 Roofing Subcontractor Relationship Specialty Start Date End Date Crissy Engle DO [address] [place] [address] PCP - General 05/31/23 Roofing Subcontractor Relationship Specialty Start Date End Date Crissy Engle DO [address] [place] [address] PCP - General 05/31/23 Roofing Subcontractor Relationship Specialty Start Date End Date Crissy Engle DO [address] [place] [address] PCP - General 05/31/23 Roofing Subcontractor Relationship Specialty Start Date End Date Crissy Engle DO [address] [place] [address] PCP - General 05/31/23 Team Status: Inactive Member Role Status Dates Primary Care Provider, Referring Provider Active Dr. Meek Gaines MD Attending Provider Active Roofing Subcontractor Relationship Specialty Start Date End Date Crissy Engle DO [address] [place] [address] PCP - General 05/31/23 Team Status: Inactive Member Role Status Dates Primary Care Provider Active Michelle WHITESIDE PA Attending Provider Active Team Status: Active Member Role Status Dates Primary Care Provider Active Michelle WHITESIDE PA Attending Provider, Referr ing Provider Active Team Status: Inactive Member Role Status Dates Primary Care Provider Active Start: August 23, 2024 End: August 23, 2024 Referring Provider Active Start: Jake marin 2024 End: August 23, 2024 Michelle WHITESIDE PA Attending Provider Active Start: August 23, 2024 End: August 23, 2024 Team Status: Active Member Role/Relationship Status Dates Primary Care Provider Active Team Status: Inactive Member Role/Relationship Status Dates Primary Care Provider Active Start: August 23, 2024 End: August 23, 2024 Referring Provider Active Start: Jake marin 2024 End: August 23, 2024 Michelle WHITESIDE PA Attending Provider Active Start: August 23, 2024 End: August 23, 2024 Team Status: Inactive Member Role/Relationship Status Dates Primary Care Provider Active Start: November 10, 2024 End: November 10, 2024 Dr. Maxim Medley DO Emergency Provider Active Start : November 10, 2024 End: November 10, 2024 Team Status: Inactive Member Role/Relationship Status Dates Primary Care Provider Active Start: November 10, 2024 End: November 10, 2024 Dr. Maxim Medley DO Attending Provider Active Start : November 10, 2024 End: November 10, 2024 Dr. Maxim Medley DO Emergency Provider Active Start : November 10, 2024 End: November 10, 2024 Team Status: Inactive Member Role/Relationship Status Dates Primary Care Provider Active Start: December 03, 2024 End: December 03, 2024 Referring Provider Active Start: Se french 2024 End: December 03, 2024 MIESHA Jackson Attending Provider Active St art: December 03, 2024 End: December 03, 2024 Team Status: Active Member Role/Relationship Status Dates Primary care physician Active Team Status: Inactive Member Role/Relationship Status Dates Primary care physician Active Start : November 10, 2024 End: November 10, 2024 Dr. Maxim Medley DO Attending physician Active Star t: November 10, 2024 End: November 10, 2024 Dr. Maxim Medley DO Emergency Department Physician Active Start: November 10, 2024 End: November 10, 2024 Team Status: Inactive Member Role/Relationship Status Dates Primary care physician Active Start : December 03, 2024 End: December 03, 2024 Referring Provider Active Start: pt2024 End: December 03, 2024 MIESHA Jackson Attending physician Active S tart: December 03, 2024 End: December 03, 2024 Team Status: Inactive Member Role/Relationship Status Dates Primary care physician Active Start : December 03, 2024 End: December 03, 2024 MIESHA Jackson Attending physician Active S tart: December 03, 2024 End: December 03, 2024 MIESHA Jackson Referring Provider Active St art: December 03, 2024 End: December 03, 2024 Reason for Visit (unrecogniz ed section and content) Reason Comments New Patient Specialty Diagnoses / Procedures Referred By Contac t Referred To Contact Diagnoses Coronary artery disease involving [place] heart with angina pectoris, unspecified vessel or lesion type (HCC) CHEST PAIN CAD Procedures . Gisella Huang MD [address] [facility] [address] [place] [id number] [place] [address] [place] [id number] Referral ID Status Reason Start Date Expiration Date Visits Re quested Visits Authorized [id number] 1 1 Reason Onset Date Comments post [...] Jessica Estrada, RN)1414 (Given - Provider: Jacque Lal, BEBA)2112 (Given - Provider: Jessica Estrada RN) 0532 (Given - Provider: Jessica Estrada RN)1311 (Given - Provider: Patria Brice, BEBA)2320 (Given - Provider: Evelia Leon, BEBA) 0621 (Given - Provider: Shahrzad Nazario RN) [...] BEBA) 0800 (Given - Provider: Patria Brice, RN) carvedilol (Coreg) tablet 12.5 mg 12.5 mg, [...] times daily with meals, First dose on Mon06/03/23 at 1015, Hold for SBP less than 105 and/or MAPs less than 65 and/or HR less than 60 0816 (Given - Provider: Jacque Lal RN) chlorhexidine (Peridex) 0.12 % solution 15 mL (CANCELED) 15 mL, Mouth/Throat, 2 times daily, First dose on Clara 06/01/23 at 1330, For 7 days, Phase II/On Unit, Rinse and spit. Do not swallow. 0816 (Given - Provider: Jacque Lal, BEBA)2110 (Given - Provider: Jessica Estrada, BEBA) furosemide [...] BEBA)2051 (Given - Provider: Evelia Leon, BEBA) 08 (Given - Provider: Patria Brice, BEBA) Lidocaine [...] (Medication Removed - Provider: Jessica Estrada, BEBA) 08 (Medication Applied - Provider: Patria Brice, BEBA)2031 (Medication Removed - Provider: Evelia Leon, BEBA) 0800 (Not Given - Provider: Patria Brice, BEBA - Reason: Patient/family refused) magnesium hydroxide (Milk of Magnesia) 400 MG/5ML suspension 30 mL (COMPLETED) 30 mL, Oral, Once, On 06/05/23 at 0600, For 1 dose, Follow dose with 8 oz of water. 0618 (Given - Provider: Jessica Estrada RN) methocarbamol (Robaxin) tablet 500 mg 500 mg, Oral, Every 6 hours scheduled (4 times per day), First dose on 06/03/23 at 1200 0015 (Given - Provider: Jessica Estrada, BEBA)0605 (Given - Provider: Jessica Estrada, BEBA)1107 (Given - Provider: Jacque Lal RN)1800 (Given - Provider: Jacque Lal RN) 0001 (Given - Provider: Jessica Estrada RN)0532 (Given - Provider: Jessica Estrada, BEBA)1126 (Given - Provider: Patria Brice, BEBA)1728 (Given [...] Unit 0817 (Given - Provider: Jacque Lal RN)2111 (Given - Provider: Jessica Estrada RN) pantoprazole (ProtoNix) EC tablet 40 mg 40 mg, Oral, Daily before breakfast, First dose on 06/04/23 at 0700, Do not crush, chew, or split. 0605 (Given - Provider: Jessica Estrada RN) 0532 (Given - Provider: Jessica Estrada, BEBA) 0621 (Given - Provider: Shahrzad Nazario, BEBA) polyethylene glycol (PEG) 3350 (Miralax) packet 17 g 17 g, Oral, Daily, First dose on Clara 06/01/23 at 1330, Recovery & On Unit, Bowel Regimen - for prevention of constipation. 0816 (Given - Provider: Jacque Lal RN) 0832 (Given - Provider: Partia Brice RN) 0800 (Given - Provider: Patria Brice RN) rosuvastatin (Crestor) tablet 40 mg 40 [...] RN) 2099 (Not Given - Provider: Evelia Leon, BEBA - Reason: Patient/family refused) sodium chloride 0.9% (NS) flush 10 mL 10 mL, IntraVENous, Every 12 hours scheduled (2 times per day), First dose on Clara 06/01/23 at 2100, Recovery & On Unit 0817 (Given - Provider: Jacque Lal RN)2115 (Given - Provider: Jessica Estrada RN) 09 (Given - Provider: Patria Brice RN)2042 (Given - Provider: Evelia Leon, BEBA) 0800 (Given - Provider: Patria Brice RN) tamsulosin (Flomax) 24 hr capsule 0.4 mg 0.4 mg, Oral, Daily, First dose on Mon06/04/23 at 0900, Do not crush, chew, or split. 0816 (Given - Provider: Jacque Lal RN) 0832 (Given - Provider: Patria Brice RN) 0800 (Given - Provider: Patria Brice RN) [...] sedation for opioid reversal - MUST notify instrumentation supervisor provider immediately after first dose, may give [...] 0605 (See Alternative - Provider: Jessica Estrada, BEBA)141 (See Alternative - Provider: Jacque Lal, BEAB) 2050 (See Alternative - Provider: Evelia Leon, BEBA) 0621 (See Alternative - Provider: Shahrzad Nazario, BEBA) oxyCODONE (Roxicodone) immediate release tablet 5 mg(Linked Group 3) 5 mg, Oral, Every 6 hours PRN, moderate pain (4-6), Starting on Clara 06/01/23 at 1328, Recovery & On Unit 0605 (Given - Provider: Jessica Estrada RN)141 (Given - Provider: Jacque Lal, BEBA) 2050 [...] BE BASED ON THE PRIMARY CLINICAL RECORDS. [facility]. provides no warranty or guarantee of the accuracy or completeness of information in this document.
--- NOTE | 2025-02-15 02:12 | EX.ED.DYSGE1 ---
HPI History of Present Illness Chief Complaint: Dizziness Informant: patient Narrative Narrative: Patient is a 64-year-old male with a past medical history of hypertension and hyperlipidemia. He also reports a past medical history of vertigo. He states over the past few days he has been experiencing bouts of dizziness which she describes as more of a sense of motion. He states symptoms seem to worsen if he is looking around the room or turning his head. He states that the symptoms do seem to improve if he remains still. He states he has taken Antivert and Valium with minimal symptom relief. He reports he does have anxiety and is concerned that it may be something more going on with his persistent symptoms as they have not resolved with time over the last few days or treatment and secondary to this comes in for evaluation. [facility] Medical History Urinary retention ELIZABETH (dyspnea on exertion) History of pulmonary embolus (PE) History of inferior wall myocardial infarction NSVT (nonsustained ventricular tachycardia) History of alcohol abuse Atherosclerosis of coronary artery of [place] heart without angina pectoris COVID-19 Hyperlipidemia Mucous cyst of digit of hand Hay fever Hemorrhoids Hypertension Home Medications ?Medication ?Instructions ?Recorded ?Last Taken ?Type aspirin 81 mg chewable tablet 81 mg PO DAILY 06/25/21 05/19/23 History multivitamin 1 tab PO DAILY 03/09/23 Unknown History amlodipine 5 mg tablet 5 mg PO DAILY 10/17/23 Unknown History carvedilol 25 mg tablet 25 mg PO .COMPLEX #180 tabs 05/06/24 Unknown Rx magnesium oxide 250 mg PO QDAY 08/23/24 Unknown History rosuvastatin 40 mg tablet 40 mg PO QDAY 08/23/24 Unknown History carboxymethylcellulose sodium 0.25 1 drp ophthalmic (eye) TID PRN 12/03/24 Unknown History % eye drops meloxicam 15 mg tablet 15 mg PO QDAY PRN 12/03/24 Unknown History diazepam 5 mg tablet (Valium) 5 mg PO TID PRN vertigo 5 days #15 02/15/25 Unknown Rx tabs meclizine 25 mg chewable tablet 25 mg PO TID PRN vertigo #30 tabs 02/15/25 Unknown Rx (Antivert) Allergy/AdvReac Type Severity Reaction Status Date / Time adhesive (adhesives) AdvReac Intermediate Rash Verified 12/03/24 12:59 Family History Mother CVA (cerebral vascular accident) Diabetes Surgical History S/P CABG x 5 (06/01/23) History of coronary artery stent placement (~01/2009) Social History Smoking Status: Former smoker how long ago did patient quit [id number] and again in 2014 alcohol intake: current Alcohol type: beer details: weekly substance use type: does not use ROS ROS ED Constitutional Constitutional ED: Denies chills or fever(s) Eyes Eyes: Denies change in vision ENT ENT ED: Denies sore throat Cardiovascular Cardiovascular: Reports other Details: Negative syncope ; Denies chest pain, palpitations or racing heartbeat Respiratory/Chest Respiratory/Chest: Denies cough or dyspnea Gastrointestinal Gastrointestinal: Reports nausea; Denies abdominal pain, diarrhea or vomiting Musculoskeletal Musculoskeletal: Denies myalgias Integumentary Denies rash Neurologic Neurologic: Reports other Details: Positive dizziness ; Denies headache(s) Psychiatric Psychiatric: Reports anxiety Hematologic/Lymphatic Hematologic/Lymphatic: Denies easy bleeding or easy bruising EXAM Physical Exam Const Vital Signs: 02/15/25 00:30 Temperature 98 F Temperature Source Oral Pulse Rate 73 Respiratory Rate 12 Blood Pressure 124/88 H Blood Pressure Mean 100 Pulse Ox 97 Oxygen Delivery Method Room Air Positive well nourished and well developed General Appearance ED: well developed; Negative for pallor HEENT HEENT Narrative: Normocephalic atraumatic Bilateral canals and tympanic membranes are normal Eyes PERRL and EOMs intact bilaterally General Eye ED: Negative for scleral icterus Neck supple Resp normal respiratory effort and clear to auscultation bilaterally Cardio regular rate and regular rhythm Rate: other Other Details: Radial and carotid pulses are equal and symmetric GI normal to inspection, nondistended, normoactive bowel sounds, non-tender, non-distended and no masses Auscultation: normoactive bowel sounds Palpation: soft Extremity normal to inspection Neuro oriented x3, CN's II-XII intact bilaterally and no sensory deficits noted Neuro Narrative: GCS of 15 Cranial nerves II through XII are grossly intact without focal neurologic deficit No pronator drift no dysmetria no truncal ataxia NIH stroke scale score of 0 There is mild horizontal nystagmus noted and positive Hallpike Pompey exam on left Sensorium / Orientation: alert Motor Exam: strength 5/5 throughout Psych Mood & Affect: anxious Skin no rashes or lesions noted General Skin Exam: Negative for jaundice or pallor MDM MDM MDM Narrative Medical decision making narrative: Patient arrived to ER with stable vitals and a normal neurologic exam. He has a known history of vertigo and his physical exam with nystagmus and a positive Hallpike Pompey exam as well as symptoms worsening with motion are most consistent with this. Physical exam does not reveal truncal ataxia to suggest a posterior circulation infarct. In order to assess for a cause of his dizziness such as acute blood loss anemia or acute kidney injury or electrolyte abnormality or a spontaneous subarachnoid subdural hemorrhage or brain mass and elected perform a noncontrast head CT as well as basic laboratory studies. Patient was treated with Valium during the workup. Labs revealed no clinically significant findings and head CT revealed no acute bleed or mass. On reevaluation he reports feeling much better and is able to ambulate with a steady gait. Therefore as overall workup is negative neurologic exam is normal and he has had resolution of symptoms I do not feel the need for further evaluation in the ER and is otherwise safe for discharge History & Record Review Discussion w/independent historian: Patient Lab Data Attestation: I reviewed the patient's lab results. Labs: Laboratory Results - last 24 hr 02/15/25 02/15/25 00:34 00:50 WBC 5.8 RBC 4.82 Hgb 13.8 Hct 42.3 MCV 87.8 MCH 28.6 MCHC 32.6 RDW Std Deviation 42.5 RDW Coeff of Tena 13.2 Plt Count 213 MPV 10.1 Immature Gran % (Auto) 0.200 Neut % (Auto) 48.3 Lymph % (Auto) 38.1 [place] % (Auto) 10.3 H Eos % (Auto) 2.4 Baso % (Auto) 0.7 Absolute Neuts (auto) 2.8 Absolute Lymphs (auto) 2.22 Nucleated RBC % 0 Sodium 136 Potassium 4.6 Chloride 102 Carbon Dioxide 23.6 Anion Gap 10 BUN 22 H Creatinine 0.88 Estim Creat Clear Calc 104.52 Est GFR (MDRD) Non-Af 95 BUN/Creatinine Ratio 24.5 H Glucose 106 H Calcium 9.1 Magnesium 2.2 POC Glucose 94 Radiography Diagnostic Testing: Clinical Impression(s) from Imaging Studies Brain CT 02/15/25 01:10 IMPRESSION: No acute cerebrovascular abnormalities. If clinical symptoms persist, further evaluation with MRI may be considered as clinically warranted. No intra or extra-axial acute hemorrhage. Bilateral cerebral mild microvascular ischemic changes with brain involutional changes. Stable. Reading Location: [place] [address] Discharge Plan Triage Chief Complaint: Dizziness ED Provider: Christopher Montes De Oca Dx/Rx/DC Orders Clinical Impression: Vertigo, Hyperlipidemia, Hypertension Instructions: ED Vertigo, Unspecified Prescriptions: New diazepam [Valium] 5 mg tablet 5 mg PO TID PRN (Reason: vertigo) 5 Days Qty: 15 0RF meclizine [Antivert] 25 mg tablet,chewable 25 mg PO TID PRN (Reason: vertigo) Qty: 30 0RF No Action multivitamin Tablet 1 tab PO DAILY amlodipine 5 mg tablet 5 mg PO DAILY rosuvastatin 40 mg tablet 40 mg PO QDAY magnesium oxide 250 mg magnesium tablet 250 mg PO QDAY carboxymethylcellulose sodium 0.25 % drops 1 drp ophthalmic (eye) TID PRN meloxicam 15 mg tablet 15 mg PO QDAY PRN aspirin [Baby Aspirin] 81 mg Tablet,Chewable 81 mg PO DAILY carvedilol 25 mg tablet 25 mg PO .COMPLEX Qty: 180 3RF Rx Instructions: 25 mg orally twice daily: Fax to [place] at .; must administer with a meal/food Primary Care Provider: CRISSY MEJIA Referrals: CRISSY MEJIA [Other] Activity Restrictions/Additional Instructions: Your workup today did not show any signs of abnormal heart rhythm low blood volume or electrolyte abnormality. Head CT revealed no sign of brain bleed or mass and your physical exam shows no sign of stroke. This indicates your dizziness is related to peripheral vertigo. Please take the prescribed medication as directed to help control symptoms. Return to the ER should you have any further concerns Print Language: Norwegian Disposition Disposition: Home, Self Care Discharge Date/Time: 02/15/25 05:25
[2025-02-15 02:29] VITALS: BP 110/75; PULSE 63; RESP 19; O2SAT 90
[2025-02-15 04:00] VITALS: PULSE 68; RESP 16; O2SAT 98
[2025-02-15 05:23] VITALS: BP 142/64; PULSE 68; RESP 16; TEMP 37.1; O2SAT 97
== END 2025-02-15 05:25 | disposition home or self-care (01) ==
PROVIDERS: Emergency Provider Emergency Medicine; Visit Provider Emergency Medicine
DX: R42 Dizziness and giddiness (principal); E78.5 Hyperlipidemia, unspecified; I10 Essential (primary) hypertension; Z79.899 Other long term (current) drug therapy; I25.10 Atherosclerotic heart disease of native coronary artery without angina pectoris; Z87.891 Personal history of nicotine dependence
CPT/HCPCS: 70450; 80048; 82962; 83735; 85025; 96360; 96361; 99282